=== PATIENT | male | born 1950 | race Caucasian/White ===

== ENCOUNTER 2019-12-29 03:20 | Inpatient (IN) ==
[2019-12-29] MEDS ORDERED: 0.2 MICRON FILTER SET 1 EA IV ONE ×2 (03:36→03:46)
[2019-12-29] MEDS ORDERED: AMIODARONE HCL INJ 50 MG/ML 3 ML VIAL IV ONE (03:37)
[2019-12-29 03:45] LABS: Basophils # (auto) 0.02 K/uL (0-0.2); Basophils % (auto) 0.3 %; Eosinophils # (auto) 0.08 K/uL (0-0.5); Hemoglobin 14.8 g/dL (14.0-18.0); Immature Granulocytes # (auto) 0.04 K/uL (0.00-0.02); Immature Granulocytes % (auto) 0.5 %; Lymphocytes % (auto) 20.4 %; Mean Corpuscular Hemoglobin 31.3 pg (25-34); Mean Corpuscular Hgb Conc 32.9 g/dL (32-36); Mean Corpuscular Volume 95.1 fL (80-100); Mean Platelet Volume 12.1 fL (7.4-10.4); Monocytes % (auto) 12.8 %; Neutrophils # (auto) 5.09 K/uL (1.4-6.5); Platelet Count 200 K/uL (130-400); RDW Coefficient of Variation 13.5 % (11.5-14.5); RDW Standard Deviation 47.1 fL (36.4-46.3); Red Blood Count 4.73 M/uL (4.7-6.1); White Blood Count 7.83 K/uL (4.8-10.8)
[2019-12-29] MEDS ORDERED: SODIUM CHLORIDE 0.9% 1000ML 1,000 ML IV SCH (03:45)
[2019-12-29] MEDS ORDERED: AMIODARONE 450 MG in D5W 250ML IN *POLYOLEFIN BAG* 241 ML IV ONE (03:46)
[2019-12-29 03:51] LABS: iSTAT Creatinine 2.2 mg/dl (0.6-1.3); iSTAT Ionized Calcium 1.01 mmol/l (1.12-1.32); iSTAT Potassium 5.5 mmol/L (3.3-5.0)
[2019-12-29 04:19] LABS: Albumin Globulin Ratio 0.9 (0.9-2); Albumin Level 3.5 gm/dl (3.4-5.0); BUN Creatinine Ratio 13.1 (10-20); Bilirubin,Total 0.4 mg/dl (0.2-1); Calcium 8.2 mg/dl (8.5-10.1); Creatinine Clr Calc Pharmacy 48.1 ml/min; Est GFR (African American) 34.2; Est GFR (Non-African American) 29.5; Globulin 3.8 gm/dl (2.5-4.0); Thyroid Stimulating Hormone 0.821 uIu/ml (0.300-4.500); Total Protein 7.3 gm/dl (6.4-8.2); Troponin I 0.388 ng/ml (0-0.045)
[2019-12-29] MEDS: AMIODARONE / D5W 150 MG/100 ML BAG IV STA ×2 (04:23→06:59)
[2019-12-29 05:24] LABS: Partial Thromboplastin Ratio 1.1; Partial Thromboplastin Time 30.2 Seconds (21.0-31.0)
[2019-12-29 05:26] LABS: Estimated Average Glucose 120 mg/dl; Hemoglobin A1C 5.8 % (4.5-5.6)
--- NOTE | 2019-12-29 05:26 | Emergency Department Note ---
History of Present Illness General Chief complaint: Cardiac Assessment Time Seen by Provider: 12/29/19 03:30 Source: patient, EMS and RN notes reviewed Mode of arrival: EMS Limitations: no limitations History of Present Illness Provider complaint: Dizzy, diaphoretic, pain between the shoulder blades Onset (ago): day(s) 3 Maximum Pain Intensity: 0 This patient is a 69-year-old male who presents emergency department with complaints of dizziness and diaphoresis. He states he has been feeling "sick" intermittently over the last several days. Patient states he fell out of bed several days ago and since that time his left shoulder and upper back between the shoulder blades has been sore. He also noticed some right lower abdominal discomfort when palpating the abdomen. Patient states he has a history of irregular heart rhythms for which he sees Dr. Cantu. The patient is not able to give a much more detailed history but states he takes his amiodarone daily. Patient denies any recent fevers, chills, dyspnea. He denies any significant chest discomfort. Home Medications Home Medications Medication Instructions Recorded Confirmed Type amiodarone 200 mg PO DAILY 12/29/19 12/29/19 History aspirin 81 mg PO DAILY 12/29/19 12/29/19 History carvedilol 6.25 mg PO DAILY 12/29/19 12/29/19 History lisinopril 5 mg PO DAILY 12/29/19 12/29/19 History magnesium oxide 400 mg PO DAILY 12/29/19 12/29/19 History Allergies Allergy/AdvReac Type Severity Reaction Status Date / Time GENARO-YELLOW SODA Allergy Unknown . Uncoded 12/29/19 04:17 Past Med/Surg History Medical History (Updated 12/29/19 @ 05:36 by Sendy Mora MD) Diabetes Erectile dysfunction Obesity Ventricular arrhythmia Social History Feels Safe at Home: Yes Smoking Status: Never smoker Review of Systems See HPI for pertinent positives & negatives. and A total of 10 systems reviewed and were otherwise negative Physical Exam Vital Signs Vital Signs - 24 hr 12/29/19 03:55 12/29/19 04:50 12/29/19 05:40 Temperature 36.3 C L Temperature Source Oral Pulse Rate 59 L Pulse Rate [Right Finger] 55 L 60 Respiratory Rate 18 16 16 Respiratory Depth Normal Normal Normal Blood Pressure 108/70 Blood Pressure [Right Arm] 112/76 111/60 Blood Pressure Mean 82 Blood Pressure Mean [Right Arm] 88 77 Blood Pressure Position Lying Blood Pressure Position [Right Arm] Lying Lying Pulse Oximetry 98 96 98 Oxygen Delivery Method Room Air Room Air Room Air Sepsis Recent Fever Within 48 Hours No Sepsis New/Unexplained Change in Mental Status No Sepsis Action Taken by Nursing No Action Required 12/29/19 06:40 Temperature Temperature Source Pulse Rate Pulse Rate [Right Finger] 57 L Respiratory Rate 16 Respiratory Depth Normal Blood Pressure Blood Pressure [Right Arm] 132/82 Blood Pressure Mean Blood Pressure Mean [Right Arm] 98 Blood Pressure Position Blood Pressure Position [Right Arm] Lying Pulse Oximetry 96 Oxygen Delivery Method Room Air Sepsis Recent Fever Within 48 Hours Sepsis New/Unexplained Change in Mental Status Sepsis Action Taken by Nursing Vital signs reviewed. General: Morbidly obese, chronically ill-appearing 69-year-old male, in no significant distress. HEENT: No scleral icterus, PERRLA, neck supple. Atraumatic. Cardiovascular: Regular with occasional ectopy, periodic runs of tachycardia. Pulmonary: Clear to auscultation bilaterally, normal work of breathing. Abdomen: Soft, nontender, nondistended, positive bowel sounds. Musculoskeletal: Atraumatic, no peripheral edema. Nontender to palpation over the cervical, thoracic and lumbar spine. No step-off or deformity appreciated. Neurologic: Patient awake alert and oriented x 3 Skin: Warm, diaphoretic, no rash Course Administered Medications Amiodarone HCl 450 mg/ (Dextrose) 250 mls @ 33.333 mls/hr IV ONE ONE; Protocol Stop: 12/29/19 11:15 Last Titration: 12/29/19 05:13 Dose: 0 mg/min, 0 mls/hr Documented by: [id number] Cosigned by: [id number] Admin: 12/29/19 04:09 Dose: 1 mg/min, 33.3 mls/hr Documented by: [id number] Cosigned by: [id number] Discontinued Medications Acetaminophen (Tylenol) 650 mg PO NOW STA Stop: 12/29/19 05:56 Last Admin: 12/29/19 06:58 Dose: 650 mg Documented by: [id number] Amiodarone HCl (Cordarone) Confirm Administered Dose 150 mg IV .[facility] Stop: 12/29/19 03:38 Last Admin: 12/29/19 04:22 Dose: 150 mg Documented by: [id number] Cosigned by: [id number] Amiodarone HCl/Dextrose (Nexterone / D5w) 150 mg in 100 mls @ 600 mls/hr IV NOW STA Stop: 12/29/19 03:45 Last Admin: 12/29/19 06:59 Dose: Not Given Documented by: [id number] Sodium Chloride (Nss 1000ml) 1,000 mls @ 100 mls/hr IV .Q10H KHLOE Stop: 12/29/19 13:44 Last Admin: 12/29/19 04:09 Dose: 100 mls/hr Documented by: [id number] Critical Care Time Critical Care Time: Yes (32) I have personally spent greater than 32 minutes of critical care time in the direct management of this patient. This includes bedside care, interpretation of diagnostic studies, and testing, discussion with consultants, patient, and family members, and other required patient management activities. This 32 minutes is in excess of all separately billable procedures. Medical Decision Making Differential Diagnosis Differential diagnosis: Acute coronary syndrome, dysrhythmia, pulmonary embolus, aortic dissection, musculoskeletal pain, pneumonia, pleural effusion, pneumothorax, GERD, peptic ulcer disease Medical Records Attestation: I reviewed the patient's medical records. (Traci) Home Medications Current Medication List: was personally reviewed by me Laboratory Data Attestation: I reviewed the patient's lab results. Result diagrams: 12/29/19 03:30 12/29/19 04:48 Lab Results 12/29/19 12/29/19 12/29/19 Range/Units 03:30 03:30 03:39 WBC 7.83 (4.8-10.8) K/uL RBC 4.73 (4.7-6.1) M/uL Hgb 14.8 (14.0-18.0) g/dL POC Hgb 16.0 (14.0-18.0) g/dl Hct 45.0 (42-52) % POC Hct 47 (42-52) % MCV 95.1 (80-100) fL MCH 31.3 (25-34) pg MCHC 32.9 (32-36) g/dL RDW Std Deviation 47.1 H (36.4-46.3) fL RDW Coeff of Adriana 13.5 (11.5-14.5) % Plt Count 200 (130-400) K/uL MPV 12.1 H (7.4-10.4) fL Immature Gran % (Auto) 0.5 % Neut % (Auto) 65.0 % Lymph % (Auto) 20.4 % [place] % (Auto) 12.8 % Eos % (Auto) 1.0 % Baso % (Auto) 0.3 % Immature Gran # (Auto) 0.04 H (0.00-0.02) K/uL Neut # (Auto) 5.09 (1.4-6.5) K/uL Lymph # (Auto) 1.60 (1.2-3.4) K/uL [place] # (Auto) 1.00 H (0.11-0.59) K/uL Eos # (Auto) 0.08 (0-0.5) K/uL Baso # (Auto) 0.02 (0-0.2) K/uL APTT (21.0-31.0) Seconds PTT Ratio POC Sodium 136 (135-144) mmol/L Sodium 135 L (136-145) mmol/L POC Potassium 5.5 H (3.3-5.0) mmol/L Potassium (3.5-5.1) mmol/L POC Chloride 99 L (101-112) mmol/L Chloride 103 (98-107) mmol/L Carbon Dioxide 27 (21-32) mmol/L POC Total CO2 29 (24-31) mmol/L Anion Gap 5.0 (3-11) POC Anion Gap 14.0 L (16-25) mmol/L POC BUN 44 H (7-18) mg/dl BUN 29 H (7-18) mg/dl Creatinine 2.21 H (0.6-1.4) mg/dl POC Creatinine 2.2 H (0.6-1.3) mg/dl Est Cr Clr Drug Dosing 48.1 ml/min Est GFR ( Amer) 34.2 Est GFR (Non-Af Amer) 29.5 BUN/Creatinine Ratio 13.1 (10-20) Glucose 115 H (70-99) mg/dl POC Glucose (other) 112 H (70-99) mg/dl Estimat Average Glucose mg/dl Hemoglobin A1c (4.5-5.6) % Calcium 8.2 L (8.5-10.1) mg/dl POC Ioniz Calcium Sue 1.01 L (1.12-1.32) mmol/l Magnesium (1.8-2.4) mg/dl Total Bilirubin 0.4 (0.2-1) mg/dl AST (15-37) U/L ALT 21 (12-78) U/L Alkaline Phosphatase 72 (45-117) U/L Troponin I 0.388 H* (0-0.045) ng/ml Total Protein 7.3 (6.4-8.2) gm/dl Albumin 3.5 (3.4-5.0) gm/dl Globulin 3.8 (2.5-4.0) gm/dl Albumin/Globulin Ratio 0.9 (0.9-2) Lipase (73-393) U/L TSH 0.821 (0.300-4.500) uIu/ml 12/29/19 12/29/19 12/29/19 Range/Units 04:48 04:48 04:48 WBC (4.8-10.8) K/uL RBC (4.7-6.1) M/uL Hgb (14.0-18.0) g/dL POC Hgb (14.0-18.0) g/dl Hct (42-52) % POC Hct (42-52) % MCV (80-100) fL MCH (25-34) pg MCHC (32-36) g/dL RDW Std Deviation (36.4-46.3) fL RDW Coeff of Adriana (11.5-14.5) % Plt Count (130-400) K/uL MPV (7.4-10.4) fL Immature Gran % (Auto) % Neut % (Auto) % Lymph % (Auto) % [place] % (Auto) % Eos % (Auto) % Baso % (Auto) % Immature Gran # (Auto) (0.00-0.02) K/uL Neut # (Auto) (1.4-6.5) K/uL Lymph # (Auto) (1.2-3.4) K/uL [place] # (Auto) (0.11-0.59) K/uL Eos # (Auto) (0-0.5) K/uL Baso # (Auto) (0-0.2) K/uL APTT 30.2 (21.0-31.0) Seconds PTT Ratio 1.1 POC Sodium (135-144) mmol/L Sodium (136-145) mmol/L POC Potassium (3.3-5.0) mmol/L Potassium 4.3 (3.5-5.1) mmol/L POC Chloride (101-112) mmol/L Chloride (98-107) mmol/L Carbon Dioxide (21-32) mmol/L POC Total CO2 (24-31) mmol/L Anion Gap (3-11) POC Anion Gap (16-25) mmol/L POC BUN (7-18) mg/dl BUN (7-18) mg/dl Creatinine (0.6-1.4) mg/dl POC Creatinine (0.6-1.3) mg/dl Est Cr Clr Drug Dosing ml/min Est GFR ( Amer) Est GFR (Non-Af Amer) BUN/Creatinine Ratio (10-20) Glucose (70-99) mg/dl POC Glucose (other) (70-99) mg/dl Estimat Average Glucose 120 mg/dl Hemoglobin A1c 5.8 H (4.5-5.6) % Calcium (8.5-10.1) mg/dl POC Ioniz Calcium Sue (1.12-1.32) mmol/l Magnesium 2.1 (1.8-2.4) mg/dl Total Bilirubin (0.2-1) mg/dl AST 14 L (15-37) U/L ALT (12-78) U/L Alkaline Phosphatase (45-117) U/L Troponin I 0.905 H* (0-0.045) ng/ml Total Protein (6.4-8.2) gm/dl Albumin (3.4-5.0) gm/dl Globulin (2.5-4.0) gm/dl Albumin/Globulin Ratio (0.9-2) Lipase (73-393) U/L TSH 0.620 (0.300-4.500) uIu/ml 12/29/19 Range/Units 04:48 WBC (4.8-10.8) K/uL RBC (4.7-6.1) M/uL Hgb (14.0-18.0) g/dL POC Hgb (14.0-18.0) g/dl Hct (42-52) % POC Hct (42-52) % MCV (80-100) fL MCH (25-34) pg MCHC (32-36) g/dL RDW Std Deviation (36.4-46.3) fL RDW Coeff of Adriana (11.5-14.5) % Plt Count (130-400) K/uL MPV (7.4-10.4) fL Immature Gran % (Auto) % Neut % (Auto) % Lymph % (Auto) % [place] % (Auto) % Eos % (Auto) % Baso % (Auto) % Immature Gran # (Auto) (0.00-0.02) K/uL Neut # (Auto) (1.4-6.5) K/uL Lymph # (Auto) (1.2-3.4) K/uL [place] # (Auto) (0.11-0.59) K/uL Eos # (Auto) (0-0.5) K/uL Baso # (Auto) (0-0.2) K/uL APTT (21.0-31.0) Seconds PTT Ratio POC Sodium (135-144) mmol/L Sodium (136-145) mmol/L POC Potassium (3.3-5.0) mmol/L Potassium (3.5-5.1) mmol/L POC Chloride (101-112) mmol/L Chloride (98-107) mmol/L Carbon Dioxide (21-32) mmol/L POC Total CO2 (24-31) mmol/L Anion Gap (3-11) POC Anion Gap (16-25) mmol/L POC BUN (7-18) mg/dl BUN (7-18) mg/dl Creatinine (0.6-1.4) mg/dl POC Creatinine (0.6-1.3) mg/dl Est Cr Clr Drug Dosing ml/min Est GFR ( Amer) Est GFR (Non-Af Amer) BUN/Creatinine Ratio (10-20) Glucose (70-99) mg/dl POC Glucose (other) (70-99) mg/dl Estimat Average Glucose mg/dl Hemoglobin A1c (4.5-5.6) % Calcium (8.5-10.1) mg/dl POC Ioniz Calcium Sue (1.12-1.32) mmol/l Magnesium (1.8-2.4) mg/dl Total Bilirubin (0.2-1) mg/dl AST (15-37) U/L ALT (12-78) U/L Alkaline Phosphatase (45-117) U/L Troponin I (0-0.045) ng/ml Total Protein (6.4-8.2) gm/dl Albumin (3.4-5.0) gm/dl Globulin (2.5-4.0) gm/dl Albumin/Globulin Ratio (0.9-2) Lipase 65 L (73-393) U/L TSH (0.300-4.500) uIu/ml Imaging Data Attestation: I personally reviewed and interpreted this imaging study as follows: Radiologist's Impression: Chest x-ray to my interpretation reveals evidence of cardiomegaly and mild vascular congestion, no evidence of pulmonary edema or focal infiltrate. ECG Data Attestation: I personally reviewed and interpreted this ECG as follows: Indication: + palpitations Rate (beats per minute): 127 Rhythm: + other (VT) ECG Intervals/blocks: + IVCD and + Prolonged QT ECG [place]: + Left axis deviation ECG ST segments: + Nonspecific ST abnormalities and + repolarization abnormalities ECG Findings: + Q waves (Anterior) Blood Pressure Blood Pressure Findings: Normal blood pressure Blood Pressure Disposition: did not require urgent referral MDM Narrative This patient was evaluated and appeared to be in no significant distress. Patient has noted to be morbidly obese and slightly diaphoretic. An order for cardiac monitoring was placed and the patient is found to be in a sinus rhythm with frequent sustained runs of ventricular tachycardia. Patient's blood pressure remained mildly hypotensive to normal. I suspect this correlates with the patient's upper back discomfort as opposed to his recent fall from bed. Patient was medicated with 150 mg of IV amiodarone and placed on an amiodarone drip. Laboratory work reveals a mildly elevated troponin at 0.388. Patient's c reatinine is noted to be 2.2 with a potassium of 5.5. IV hydration was initiated. Patient's V. tach did break. He remained in a sinus rhythm with occasional PVCs. Patient's case was discussed with [facility] who has agreed to evaluate the patient for admission and further management. Impression & Plan Ventricular tachycardia, sustained Discharge Plan Visit Data Chief Complaint: Cardiac Assessment ED Provider: Sendy Mora Discharge Problem: Ventricular tachycardia, sustained Forms Stand Alone Forms: [facility] Prescriptions Prescriptions: No Action carvedilol 6.25 mg Tablet 6.25 mg PO DAILY RF: 0 amiodarone 200 mg Tablet 200 mg PO DAILY RF: 0 aspirin 81 mg Tablet,Delayed Release (Dr/Ec) 81 mg PO DAILY RF: 0 lisinopril 5 mg Tablet 5 mg PO DAILY RF: 0 magnesium oxide 400 mg magnesium Tablet 400 mg PO DAILY RF: 0
[2019-12-29 05:37] LABS: Potassium 4.3 mmol/L (3.5-5.1)
[2019-12-29] MEDS ORDERED: ACETAMINOPHEN 325 MG TAB PO STA (05:55)
[2019-12-29 05:56] LABS: Magnesium 2.1 mg/dl (1.8-2.4); Thyroid Stimulating Hormone 0.62 uIu/ml (0.300-4.500); Troponin I 0.905 ng/ml (0-0.045)
--- NOTE | 2019-12-29 05:58 | History & Physical Report ---
Date of Service December 29, 2019 Assessment & Plan (1) Recurrent ventricular tachycardia: Patient currently bradycardic post IV amiodarone administration at the ER. ? Precipitated by ARF, posttraumatic left shoulder/back pain Troponin elevation secondary to above chronic systolic heart failure secondary to idiopathic cardiomyopathy (EF 35 to 40%, TTE 2019), euvolemic to dry MICHAEL not on CPAP, patient did not tolerate CPAP titration as per 2010 sleep study report. hypertension, stable Hyperglycemia secondary to prediabetes, hemoglobin A1c of 5.8 past tobacco abuse PCU Hold IV amiodarone given bradycardia Facilitate home beta-javi and amiodarone Rx Baseline UA, appropriate to hold home MÓNICA inhibitor until creatinine back to baseline monitor creatinine response to gentle IV hydration Cardiology consult RE recurrent VT Follow troponin TTE if with progression N.p.o. for now until patient seen by Cardiology. DVT prophylaxis. Heparin SQ Full code Text document was generated using [employer] voice recognition software. It may contain grammatical or spelling errors. Kindly contact undersigned for clarification of any documentation item in question. History of Present Illness Chief Complaint: dizziness, shoulder pain Primary Care Provider: Valentín Pompa MD History obtained from patient and records. Medical history significant for chronic systolic heart failure secondary to idiopathic cardiomyopathy (EF 35 to 40%, TTE 2019), history RVOT VT as per records, MICHAEL not on CPAP, hypertension, past tobacco abuse. Last confinement December 2012 for ventricular tachycardia status post cardioversion. Patient refused ICD recommendation as per outpatient records. Patient fell off his bed yesterday morning. No head trauma, LOC. Patient complaining of left shoulder, upper back pain throughout the day. No chest pain, no S OB. Early this morning patient was tinkering with some box when he experienced dizz iness described as lightheadedness, diaphoreses, worsening left shoulder discomfort. Achy headache symptoms. At the ER, patient had transient VT on the monitor/telemetry strips. IV amiodarone started at the ER. Cardiac rate currently in the 50s. 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 Uncoded 06/04/20 04:17 Home Medications Home Medications Medication Instructions Recorded Confirmed Type amiodarone 200 mg PO DAILY 12/29/19 12/29/19 History aspirin 81 mg PO DAILY 12/29/19 12/29/19 History carvedilol 6.25 mg PO DAILY 12/29/19 12/29/19 History lisinopril 5 mg PO DAILY 12/29/19 12/29/19 History magnesium oxide 400 mg PO DAILY 12/29/19 12/29/19 History Past Med/Surg History Medical History (Updated 12/29/19 @ 07:35 by Mustapha Iraheta MD) Diabetes Erectile dysfunction Obesity Ventricular arrhythmia Social History Feels Safe at Home: Yes Smoking Status: Never smoker Review of Systems Review of Systems: As per HPI, all 10 systems reviewed, all other ROS negative Physical Exam Physical Exam: GENERAL: Comfortable, morbidly obese, no respiratory distress SKIN: Normal color, warm HEENT: Alopecia, bespectacled, [place] palpebral conjunctivae, no ptosis, dry buccal mucosa NECK : Supple, short neck, no tenderness CHEST : Decreased breath sounds , no tenderness HEART : Bradycardic , no obvious murmurs ABDOMEN: Some distention, nontender EXTREMITIES : Minimal LE swelling, no LE tenderness, no other conspicuous deformities noted NEUROLOGIC : Coherent, no facial asymmetry, mild hearing impairment, no other gross focality Results & Data Results & Data ([facility]) Vital Signs (Past 12 Hours) Vital Signs Temp Pulse Pulse Resp BP BP Pulse Ox 12/29/19 05:40 60 16 111/60 98 12/29/19 04:50 55 L 16 112/76 96 12/29/19 03:55 36.3 C L 59 L 18 108/70 98 Laboratory Results Laboratory Results WBC 7.83 K/uL (4.8-10.8) 12/29/19 03:30 RBC 4.73 M/uL (4.7-6.1) 12/29/19 03:30 Hgb 14.8 g/dL (14.0-18.0) 12/29/19 03:30 POC Hgb 16.0 g/dl (14.0-18.0) 12/29/19 03:39 Hct 45.0 % (42-52) 12/29/19 03:30 POC Hct 47 % (42-52) 12/29/19 03:39 MCV 95.1 fL (80-100) 12/29/19 03:30 MCH 31.3 pg (25-34) 12/29/19 03:30 MCHC 32.9 g/dL (32-36) 12/29/19 03:30 RDW Std Deviation 47.1 fL (36.4-46.3) H 12/29/19 03:30 RDW Coeff of Adriana 13.5 % (11.5-14.5) 12/29/19 03:30 Plt Count 200 K/uL (130-400) 12/29/19 03:30 MPV 12.1 fL (7.4-10.4) H 12/29/19 03:30 Immature Gran % (Auto) 0.5 % 12/29/19 03:30 Neut % (Auto) 65.0 % 12/29/19 03:30 Lymph % (Auto) 20.4 % 12/29/19 03:30 [place] % (Auto) 12.8 % 12/29/19 03:30 Eos % (Auto) 1.0 % 12/29/19 03:30 Baso % (Auto) 0.3 % 12/29/19 03:30 Immature Gran # (Auto) 0.04 K/uL (0.00-0.02) H 12/29/19 03:30 Neut # (Auto) 5.09 K/uL (1.4-6.5) 12/29/19 03:30 Lymph # (Auto) 1.60 K/uL (1.2-3.4) 12/29/19 03:30 [place] # (Auto) 1.00 K/uL (0.11-0.59) H 12/29/19 03:30 Eos # (Auto) 0.08 K/uL (0-0.5) 12/29/19 03:30 Baso # (Auto) 0.02 K/uL (0-0.2) 12/29/19 03:30 APTT 30.2 Seconds (21.0-31.0) 12/29/19 04:48 PTT Ratio 1.1 12/29/19 04:48 POC Sodium 136 mmol/L (135-144) 12/29/19 03:39 Sodium 135 mmol/L (136-145) L 12/29/19 03:30 POC Potassium 5.5 mmol/L (3.3-5.0) H 12/29/19 03:39 Potassium 4.3 mmol/L (3.5-5.1) 12/29/19 04:48 POC Chloride 99 mmol/L (101-112) L 12/29/19 03:39 Chloride 103 mmol/L (98-107) 12/29/19 03:30 Carbon Dioxide 27 mmol/L (21-32) 12/29/19 03:30 POC Total CO2 29 mmol/L (24-31) 12/29/19 03:39 Anion Gap 5.0 (3-11) 12/29/19 03:30 POC Anion Gap 14.0 mmol/L (16-25) L 12/29/19 03:39 POC BUN 44 mg/dl (7-18) H 12/29/19 03:39 BUN 29 mg/dl (7-18) H 12/29/19 03:30 Creatinine 2.21 mg/dl (0.6-1.4) H 12/29/19 03:30 POC Creatinine 2.2 mg/dl (0.6-1.3) H 12/29/19 03:39 Est Cr Clr Drug Dosing 48.1 ml/min 12/29/19 03:30 Est GFR ( Amer) 34.2 12/29/19 03:30 Est GFR (Non-Af Amer) 29.5 12/29/19 03:30 BUN/Creatinine Ratio 13.1 (10-20) 12/29/19 03:30 Glucose 115 mg/dl (70-99) H 12/29/19 03:30 POC Glucose (other) 112 mg/dl (70-99) H 12/29/19 03:39 Estimat Average Glucose 120 mg/dl 12/29/19 04:48 Hemoglobin A1c 5.8 % (4.5-5.6) H 12/29/19 04:48 Calcium 8.2 mg/dl (8.5-10.1) L 12/29/19 03:30 POC Ioniz Calcium Sue 1.01 mmol/l (1.12-1.32) L 12/29/19 03:39 Magnesium 2.1 mg/dl (1.8-2.4) 12/29/19 04:48 Total Bilirubin 0.4 mg/dl (0.2-1) 12/29/19 03:30 AST 14 U/L (15-37) L 12/29/19 04:48 ALT 21 U/L (12-78) 12/29/19 03:30 Alkaline Phosphatase 72 U/L (45-117) 12/29/19 03:30 Troponin I 0.905 ng/ml (0-0.045) H* 12/29/19 04:48 Total Protein 7.3 gm/dl (6.4-8.2) 12/29/19 03:30 Albumin 3.5 gm/dl (3.4-5.0) 12/29/19 03:30 Globulin 3.8 gm/dl (2.5-4.0) 12/29/19 03:30 Albumin/Globulin Ratio 0.9 (0.9-2) 12/29/19 03:30 TSH 0.620 uIu/ml (0.300-4.500) 12/29/19 04:48 Diagnostic Findings Chest x-ray as per my interpretation cardiomegaly EKG as per my interpretation : Rate 70, NSR, LAD, LAFB, RBBB, 1 AVB, septal infarct, inferior infarct, T wave abnormalities lateral leads, PVCs CT head: No acute intracranial abnormality. Left shoulder x-ray: 1. No fracture or dislocation within the left shoulder. 2. Chronic rotator cuff tear. CT thoracic spine read pending
--- NOTE | 2019-12-29 07:10 | CT Scan Report ---
HEAD CT NONCONTRAST CT DOSE: 859.97 mGy.cm HISTORY: Headache. Dizziness. TECHNIQUE: Multiaxial CT images of the head were performed without the use of intravenous contrast. A utomated exposure control was utilized for this study. A dose lowering technique was utilized adheri ng to the principles of ALARA. Comparison: None. Findings: Small retention cysts within the right maxillary sinus. The mastoid air cells are clear. Th e calvarium and skull base are intact. The ventricles are normal in size. Mild atrophic changes seen within the brain. There is no mass, hematoma, midline shift, or acute infarct. Impression: No acute intracranial abnormality. ACT 112: Negative or not required by law. Electronically signed by: Jonah Jenkins M.D. 12/29/2019 7:08 AM
--- NOTE | 2019-12-29 07:11 | XRay Report ---
LEFT SHOULDER 3 VIEWS HISTORY: L shoulder pain COMPARISON: None. FINDINGS: There is no fracture or dislocation. Soft tissues are unremarkable. The left clavicle is in tact. Narrowing of the subacromial space with [id number] articulation consistent with chronic rotat or cuff tear. IMPRESSION: 1. No fracture or dislocation within the left shoulder. 2. Chronic rotator cuff tear. ACT 112: Negative or not required by law. Electronically signed by: Jonah Jenkins M.D. 12/29/2019 7:09 AM
--- NOTE | 2019-12-29 07:11 | XRay Report ---
XR chest 1V portable HISTORY: palpitations COMPARISON: Chest 01/16/2013. FINDINGS: The lungs are clear. The heart remains mildly enlarged. No pleural effusions. No pneumothor ax. No evidence for pulmonary edema. No new focal lung consolidations to suggest pneumonia. Stable ri ght hilar prominence. IMPRESSION: No significant change compared to the prior study. No acute process. Stable mild cardiomegaly. ACT 112: Negative or not required by law. Electronically signed by: Jonah Jenkins M.D. 12/29/2019 7:10 AM
--- NOTE | 2019-12-29 07:57 | CT Scan Report ---
CT thoracic spine wo con CT DOSE: 1516.62 mGy.cm CLINICAL HISTORY: upper back pain, hx trauma TECHNIQUE: Helical images were acquired in the transverse plane. Sagittal and coronal reformatted monalisa ges were reviewed. A dose lowering technique was utilized adhering to the principles of ALARA. COMPARISON STUDY: None. FINDINGS: No acute fractures or traumatic subluxations are visualized. There is no evidence for a par aspinal hematoma. There are multilevel degenerative changes. There is a mild spinal curvature. IMPRESSION: No acute fractures or traumatic subluxations identified. ACT 112: Negative or not required by law. Electronically signed by: Daniel Langley M.D. 12/29/2019 7:55 AM
[2019-12-29] MEDS ORDERED: NITROGLYCERIN SL 0.4 MG/TAB TAB SL PRN (09:18)
[2019-12-29] MEDS ORDERED: TRAMADOL HCL 50 MG TABLET PO PRN (09:18)
[2019-12-29] MEDS ORDERED: HYDROmorphone INJ 0.5 MG/0.5 ML SYR IV PRN (09:18)
[2019-12-29] MEDS ORDERED: PROMETHAZINE HCL 12.5 MG in SODIUM CHLORIDE 0.9% 50 ML IV PRN (09:18)
[2019-12-29] MEDS ORDERED: AMIODARONE RATE CHANGE ONE (09:47)
[2019-12-29] MEDS: SODIUM CHLORIDE 0.9% 1000ML 1,000 ML IV SCH (10:01)
--- NOTE | 2019-12-29 11:14 | Cardiology Consultation ---
Date of Consultation December 29, 2019 Assessment & Plan (1) Recurrent ventricular tachycardia: Patient had appt with EP in 2012 to discuss treatment of right ventricular VT. He declined attempted ablation at that time. He also declined ICD implant at that time. He never had f/u with EP since 2012. He has been maintained on low dose amiodarone and low dose carvedilol. Doses of medicaitons have been limited by bradycardia in the past. On admisisn he was started on IV amiodarone with improvement in arrhythmias (2) Bradycardia: History of bradycardia, HR's ranging in the 50s while on amiodarone and low dose beta javi HR's trending down after recieving IV amiodarone, currently in the 40's on telemetry. No symptoms. Holding beta javi due to low HR this morning. (3) Non-ischemic cardiomyopathy: Patient has a history of non ischemic cardiomyopathy with LVEF around 30- 35% dating back to 2009. he underwent cath at that time, demonstrating normal coronary arteries. He has no chest pain (4) Elevated troponin: No chest pain on admission Likely due to ventricular arrhythmias Need to consider undelrying CAD/ischemia. His cath was in 2009 and does not appear that he has an ischemic work up since that time. Given his THANH with creatinine 2.2, not ideal cath candiate at this time, and given his lack of symptoms, will manage medically for now. Once creatinine improves, consider repeat evaluation. (5) THANH (acute kidney injury): Baseline creatinine around 1.3 in September 2019. Now 2.2 on admission. Hold lisinopril. Gentle fluids Case discussed with Dr. Henry. EP consult appreciated for further recommendations on ablation vs device vs medication management for recurrent symptomatic VT. Continue amiodarone for now. Consider future ischemic work up given elevated troponin. Will monitor. Supervising Physician Co-Signing Physician Notes Patient seen and examined at the bedside. Currently feeling well from a cardiovascular perspective. No recurrent ventricular tachycardia since last evening. Patient treated with beta-javi and IV amiodarone on admission, however, heart rate trended down into the 40s. Electrophysiology has evaluated the patient. Input appreciated. PE: VSS. Gen: NAD, AAOx3. Heart: Regular, normal S1S2. No murmur. Lungs: Clear B/L, No R/R/W. Ext: 1+ b/l pretibial edema. A/P: Agree with above PA-C history, physical exam, assessment and plan. Electrophysiology input appreciated. With low ejection fraction and evidence of ventricular tachycardia, ICD is indicated. Per discussion with electrophysiology, high-dose beta-blockers preferred treatment at this time, however, with evidence of tachy-maritza syndrome, backup pacing is necessary prior to titration of AV bruno blocking agents. Electrophysiology will discuss implantation of dual-chamber ICD during this hospitalization. In regard to patient's elevated troponin. I suspect demand ischemia in the setting of ventricular arrhythmias. Patient is without anginal symptoms. Repeat echocardiogram demonstrates global hypokinesis without discrete wall motion abnormality. Further ischemic evaluation is warranted, however, with elevated creatinine of 2.2, patient does not a cardiac catheterization candidate currently. Currently, will address ventricular tachycardia (which does not appear to be ischemic in origin) with ICD and beta-javi therapy. Further ischemic evaluation with stress testing versus coronary angiography as clinical course unfolds. History of Present Illness Reason for Consultation: VT Requesting Physician: Dr. James Attending Physician: Dr. Coy Henry History of Present Illness Patient is a 69 year old male who has a history of nonischemic cardiomyopathy, chronic systolic heart failure, LVEF 35-40% per last echo in 04/2019, and a history of right ventricular outflow track arrhythmias complicated by bradycardia, limiting medications in the past. In 2012, he was admitted for sustained ventricular tachycardia. Evaluated by EP at that time, Dr. Woodard, and discussed medications vs attempted RV ablation. He had f/u with Dr. Becerra as an outpatient and again options discussed regarding ablation or possible device implantation. He declined further work up or evaluation and preferred medical management. He has been on Amiodarone 200 mg and Coreg since that time. Primary psychotherapist counselor is Dr. Cantu. Last night, patient reports feeling significantly lightheaded and near syncopal. [place] his heart was racing and symptoms did not resolve quickly, as in past events. He called EMS and was brought to ER for evaluation. Upon arrival, patient found to have recurrent VT. He was started on IV amiodarone and his arrhythmias improved. He reports compliance with home medications. IV amiodarone was subsequently discontinued this morning due to bradycardia with HR's in the 40's. He received his Oral amiodarone this morning. He denies chest pain or recent chest pain. No SOB. He notes occasional palpitations. no true syncope. Chronic edema, unchanged. No fever, cough, chills. His last VT episode occurred around 3:45 AM. No recurrent arrhythmias since that time. At time of consult, patient reports feeling "back to normal". He denies recurrent dizziness or lightheadedness. No palpitations. No tachypalpitations. No chest pain or SOB. Allergies Allergy/AdvReac Type Severity Reaction Status Date / Time GENARO-YELLOW SODA Allergy Unknown . Uncoded 12/29/19 04:17 Home Medications Home Medications Medication Instructions Recorded Confirmed Type amiodarone 200 mg PO DAILY 12/29/19 12/29/19 History aspirin 81 mg PO DAILY 12/29/19 12/29/19 History carvedilol 6.25 mg PO DAILY 12/29/19 12/29/19 History lisinopril 5 mg PO DAILY 12/29/19 12/29/19 History magnesium oxide 400 mg PO DAILY 12/29/19 12/29/19 History Patient History Medical History (Updated 12/29/19 @ 16:33 by Maximo Woodard MD) Diabetes Erectile dysfunction Obesity Ventricular arrhythmia Social History Preferred Language: Indonesian Communication Ability: Effective Manufacturing Associate Required: No Beliefs That Will Affect Care: None Current Living Situation: Alone Other Information That Helps Us Care for You: No Feels Safe at Home: Yes Safety Concerns: Feels Safe At This Time Smoking Status: Former smoker Tobacco Type: smokeless tobacco ; Do You Dip or Chew Tobacco: Yes ; Second Hand Exposure: No ; Tobacco Cessation Education Requested by Patient: Yes Hx Alcohol Use: No Hx Substance Use: No Review of Systems Review of Systems: All systems reviewed & are unremarkable except as noted in HPI & below Physical Exam Constitutional: WD/WN, vitals as above + obese Respiratory: normal respiratory effort, lungs clear to auscultation Cardiovascular: Rate/Rhythm: regular rate and regular rhythm Heart Sounds: no murmur Vessels: no JVD Extremities: + edema (1+ edema b/l) Gastrointestinal (Abdomen): normal bowel sounds, soft, nontender, no hepatosplenomegaly Musculoskeletal: no cyanosis or clubbing, extremities motor strength 5/5 Neurologic: PERRL, EOMI, accommodation nl, no face palsy, no dysarthria Results & Data ([facility]) Vital Signs (Past 12 Hours) Vital Signs Temp Pulse Pulse Resp BP BP BP 12/29/19 09:25 61 12/29/19 08:25 36.4 C L 60 16 158/97 H 12/29/19 06:40 57 L 16 132/82 12/29/19 05:40 60 16 111/60 12/29/19 04:50 55 L 16 112/76 12/29/19 03:55 36.3 C L 59 L 18 108/70 Pulse Ox 12/29/19 09:25 12/29/19 08:25 96 12/29/19 06:40 96 12/29/19 05:40 98 12/29/19 04:50 96 12/29/19 03:55 98 Laboratory Results 12/29/19 12/29/19 12/29/19 Range/Units 11:03 04:48 04:48 WBC (4.8-10.8) K/uL RBC (4.7-6.1) M/uL Hgb (14.0-18.0) g/dL POC Hgb (14.0-18.0) g/dl Hct (42-52) % POC Hct (42-52) % MCV (80-100) fL MCH (25-34) pg MCHC (32-36) g/dL RDW Std Deviation (36.4-46.3) fL RDW Coeff of Adriana (11.5-14.5) % Plt Count (130-400) K/uL MPV (7.4-10.4) fL Immature Gran % (Auto) % Neut % (Auto) % Lymph % (Auto) % [place] % (Auto) % Eos % (Auto) % Baso % (Auto) % Immature Gran # (Auto) (0.00-0.02) K/uL Neut # (Auto) (1.4-6.5) K/uL Lymph # (Auto) (1.2-3.4) K/uL [place] # (Auto) (0.11-0.59) K/uL Eos # (Auto) (0-0.5) K/uL Baso # (Auto) (0-0.2) K/uL APTT (21.0-31.0) Seconds PTT Ratio POC Sodium (135-144) mmol/L Sodium (136-145) mmol/L POC Potassium (3.3-5.0) mmol/L Potassium (3.5-5.1) mmol/L POC Chloride (101-112) mmol/L Chloride (98-107) mmol/L Carbon Dioxide (21-32) mmol/L POC Total CO2 (24-31) mmol/L Anion Gap (3-11) POC Anion Gap (16-25) mmol/L POC BUN (7-18) mg/dl BUN (7-18) mg/dl Creatinine (0.6-1.4) mg/dl POC Creatinine (0.6-1.3) mg/dl Est Cr Clr Drug Dosing ml/min Est GFR ( Amer) Est GFR (Non-Af Amer) BUN/Creatinine Ratio (10-20) Glucose (70-99) mg/dl POC Glucose (other) (70-99) mg/dl Estimat Average Glucose 120 mg/dl Hemoglobin A1c 5.8 H (4.5-5.6) % Calcium (8.5-10.1) mg/dl POC Ioniz Calcium Sue (1.12-1.32) mmol/l Magnesium (1.8-2.4) mg/dl Total Bilirubin (0.2-1) mg/dl AST (15-37) U/L ALT (12-78) U/L Alkaline Phosphatase (45-117) U/L Troponin I 2.870 H* (0-0.045) ng/ml Total Protein (6.4-8.2) gm/dl Albumin (3.4-5.0) gm/dl Globulin (2.5-4.0) gm/dl Albumin/Globulin Ratio (0.9-2) Lipase 65 L (73-393) U/L TSH (0.300-4.500) uIu/ml 12/29/19 12/29/19 12/29/19 Range/Units 04:48 04:48 03:39 WBC (4.8-10.8) K/uL RBC (4.7-6.1) M/uL Hgb (14.0-18.0) g/dL POC Hgb 16.0 (14.0-18.0) g/dl Hct (42-52) % POC Hct 47 (42-52) % MCV (80-100) fL MCH (25-34) pg MCHC (32-36) g/dL RDW Std Deviation (36.4-46.3) fL RDW Coeff of Adriana (11.5-14.5) % Plt Count (130-400) K/uL MPV (7.4-10.4) fL Immature Gran % (Auto) % Neut % (Auto) % Lymph % (Auto) % [place] % (Auto) % Eos % (Auto) % Baso % (Auto) % Immature Gran # (Auto) (0.00-0.02) K/uL Neut # (Auto) (1.4-6.5) K/uL Lymph # (Auto) (1.2-3.4) K/uL [place] # (Auto) (0.11-0.59) K/uL Eos # (Auto) (0-0.5) K/uL Baso # (Auto) (0-0.2) K/uL APTT 30.2 (21.0-31.0) Seconds PTT Ratio 1.1 POC Sodium 136 (135-144) mmol/L Sodium (136-145) mmol/L POC Potassium 5.5 H (3.3-5.0) mmol/L Potassium 4.3 (3.5-5.1) mmol/L POC Chloride 99 L (101-112) mmol/L Chloride (98-107) mmol/L Carbon Dioxide (21-32) mmol/L POC Total CO2 29 (24-31) mmol/L Anion Gap (3-11) POC Anion Gap 14.0 L (16-25) mmol/L POC BUN 44 H (7-18) mg/dl BUN (7-18) mg/dl Creatinine (0.6-1.4) mg/dl POC Creatinine 2.2 H (0.6-1.3) mg/dl Est Cr Clr Drug Dosing ml/min Est GFR ( Amer) Est GFR (Non-Af Amer) BUN/Creatinine Ratio (10-20) Glucose (70-99) mg/dl POC Glucose (other) 112 H (70-99) mg/dl Estimat Average Glucose mg/dl Hemoglobin A1c (4.5-5.6) % Calcium (8.5-10.1) mg/dl POC Ioniz Calcium Sue 1.01 L (1.12-1.32) mmol/l Magnesium 2.1 (1.8-2.4) mg/dl Total Bilirubin (0.2-1) mg/dl AST 14 L (15-37) U/L ALT (12-78) U/L Alkaline Phosphatase (45-117) U/L Troponin I 0.905 H* (0-0.045) ng/ml Total Protein (6.4-8.2) gm/dl Albumin (3.4-5.0) gm/dl Globulin (2.5-4.0) gm/dl Albumin/Globulin Ratio (0.9-2) Lipase (73-393) U/L TSH 0.620 (0.300-4.500) uIu/ml 12/29/19 12/29/19 Range/Units 03:30 03:30 WBC 7.83 (4.8-10.8) K/uL RBC 4.73 (4.7-6.1) M/uL Hgb 14.8 (14.0-18.0) g/dL POC Hgb (14.0-18.0) g/dl Hct 45.0 (42-52) % POC Hct (42-52) % MCV 95.1 (80-100) fL MCH 31.3 (25-34) pg MCHC 32.9 (32-36) g/dL RDW Std Deviation 47.1 H (36.4-46.3) fL RDW Coeff of Adriana 13.5 (11.5-14.5) % Plt Count 200 (130-400) K/uL MPV 12.1 H (7.4-10.4) fL Immature Gran % (Auto) 0.5 % Neut % (Auto) 65.0 % Lymph % (Auto) 20.4 % [place] % (Auto) 12.8 % Eos % (Auto) 1.0 % Baso % (Auto) 0.3 % Immature Gran # (Auto) 0.04 H (0.00-0.02) K/uL Neut # (Auto) 5.09 (1.4-6.5) K/uL Lymph # (Auto) 1.60 (1.2-3.4) K/uL [place] # (Auto) 1.00 H (0.11-0.59) K/uL Eos # (Auto) 0.08 (0-0.5) K/uL Baso # (Auto) 0.02 (0-0.2) K/uL APTT (21.0-31.0) Seconds PTT Ratio POC Sodium (135-144) mmol/L Sodium 135 L (136-145) mmol/L POC Potassium (3.3-5.0) mmol/L Potassium (3.5-5.1) mmol/L POC Chloride (101-112) mmol/L Chloride 103 (98-107) mmol/L Carbon Dioxide 27 (21-32) mmol/L POC Total CO2 (24-31) mmol/L Anion Gap 5.0 (3-11) POC Anion Gap (16-25) mmol/L POC BUN (7-18) mg/dl BUN 29 H (7-18) mg/dl Creatinine 2.21 H (0.6-1.4) mg/dl POC Creatinine (0.6-1.3) mg/dl Est Cr Clr Drug Dosing 48.1 ml/min Est GFR ( Amer) 34.2 Est GFR (Non-Af Amer) 29.5 BUN/Creatinine Ratio 13.1 (10-20) Glucose 115 H (70-99) mg/dl POC Glucose (other) (70-99) mg/dl Estimat Average Glucose mg/dl Hemoglobin A1c (4.5-5.6) % Calcium 8.2 L (8.5-10.1) mg/dl POC Ioniz Calcium Sue (1.12-1.32) mmol/l Magnesium (1.8-2.4) mg/dl Total Bilirubin 0.4 (0.2-1) mg/dl AST (15-37) U/L ALT 21 (12-78) U/L Alkaline Phosphatase 72 (45-117) U/L Troponin I 0.388 H* (0-0.045) ng/ml Total Protein 7.3 (6.4-8.2) gm/dl Albumin 3.5 (3.4-5.0) gm/dl Globulin 3.8 (2.5-4.0) gm/dl Albumin/Globulin Ratio 0.9 (0.9-2) Lipase (73-393) U/L TSH 0.821 (0.300-4.500) uIu/ml Diagnostic Findings EKG and telemetry reviewed from admission: NSR with monomorphic VT last episode of non sustained VT around 3:45 AM Outpatient echo report reviewed, dated 04/2019: Interpretation Summary The examination is adequate to evaluate the referral indication. The left ventricular cavity size is mildly enlarged. The LV wall thickness is mildly increased (concentric). There is moderate diffuse left ventricular hypokinesis. The left ventricular systolic function is moderately reduced. Qualitative LV ejection Fraction = 35-40%. Mild aortic valve sclerosis is present. Aortic stenosis is absent.
[2019-12-29] MEDS: ASPIRIN 81 MG ECTAB PO SCH (11:26)
[2019-12-29] MEDS: carvediloL 6.25 MG TAB PO SCH (11:26)
[2019-12-29] MEDS: AMIODARONE 200 MG TAB PO SCH (11:26)
[2019-12-29 13:05] LABS: Appearance Urine Clear (Clear); Bilirubin Urine Negative (Negative); Blood Urine Negative (Negative); Color Urine Yellow; Glucose Urine UA Negative (Negative); Ketones Urine Negative (Negative); Leukocyte Esterase Urine Negative (Negative); Nitrite Urine Negative (Negative); Protein Urine Negative (Negative); Urobilinogen Urine Negative (Negative)
[2019-12-29] MEDS: HEPARIN SOD 5,000 UNIT/0.5 ML VIAL SQ SCH ×2 (13:48→22:52)
--- NOTE | 2019-12-29 16:11 | Cardiology Consultation ---
Date of Consultation December 29, 2019 Assessment & Plan (1) Recurrent ventricular tachycardia: He has a long history of recurrent ventricular tachycardia which appears to be a right ventricular outflow tract type of arrhythmia. Normally the treatment for this is beta-blockade which he does not tolerate due to bradycardia. He has been on amiodarone now for 7 years, he is having more difficulty with the ventricular arrhythmia on 200 mg daily of amiodarone although it did seem to suppress it intravenously in the emergency room. This may not be a good long-term treatment however. Consideration had been given to ablation but that was not done 7 years ago. I think the best option at this point would be to try high-dose beta-blockade however a pacemaker would be required to do that. (2) Non-ischemic cardiomyopathy: He has a nonischemic cardiomyopathy which has been present for over 10 years. The cause is not clear but most the reversible causes of cardiomyopathy would have progressed so I suspect it is not 1 of those, it may be related to his bifascicular block since he has a very wide QRS complex, it could be due to very frequent ventricular ectopy since his last Holter in 2011 demonstrated 28% premature ventricular beats. Both of these things can potentially be addressed. In addition he is not on appropriate heart failure medications, in part because he develops bradycardia on higher dose beta-blockade. This can also be addre ssed by a pacemaker/ICD. (3) Bifascicular bundle branch block: He has bifascicular block with a QRS duration of 150 to 160 ms on many of his electrocardiograms. This gives us the opportunity potentially of re- synchronizing his ventricular contraction which may help with his cardiomyopathy. He has never demonstrated higher grade AV block. (4) Bradycardia: He has sinus bradycardia when attempts are made to control his arrhythmia with beta-blockade. However he should be on beta-blockade with his cardiomyopathy. I would recommend pacing, preferably resynchronization, in order to try to correct his dyssynchrony as well as to allow appropriate treatment of his cardiomyopathy and his ventricular tachycardia with high-dose beta-blockade. I will tentatively plan Bi-V ICD implantation tomorrow. (5) THANH (acute kidney injury): His creatinine is slightly elevated, it is around 2 which is higher than it has been in the recent past. This is probably related to hypoperfusion, we will need to check it again and hopefully it will come down quickly. If it does not we may have to hold off on device placement since we will have to use IV contrast for that procedure. (6) Elevated troponin: He has an elevated troponin this admission. On presentation it was 0.388, an hour later was 0.905 and 7 hours later was 2.87. I suspect this was demand ischemia, although he may need an ischemic work-up. I doubt very much ischemia has anything to do with his ventricular arrhythmia. History of Present Illness Attending Physician: Wilman James MD History of Present Illness This is a 69 yo male with a history of non-ischemic cardiomyopathy identified in January of 2010 when he presented with palpitations and chest discomfort. He was life flighted from the emergency room here to [facility] where I understand catheterization demonstrated no obstructive disease. In 2009 it appears that he had symptoms suggestive of a tachycardia on presentation but only premature ventricular beats and nonsustained ventricular tachycardia was identified on monitoring. At that time he had an underlying bifascicular block pattern and his ventricular ectopy had an inferior axis left bundle branch block pattern. He was treated medically and had improvement in his left ventricular function and did not qualify for an ICD for primary prevention of sudden cardiac . He was lost to followup and he tells me he continued to take his medications, which were carvedilol and lisinopril but at low doses. Of note he did have a Holter monitor done in 2011, this showed 28% of his beats to be premature ventricular beats and he did have runs of nonsustained ventricular tachycardia although they were predominantly isolated. He then awoke in the morning of January 19, 2013 with palpitations and presented to the emergency room in a wide complex tachycardia. He was cardioverted electrically. He denies chest pain on this presentation although had some sort of discomfort in his chest and he was quite short of breath. The morphology of this tachycardia looked identical to the ectopy on his January 2010 presentation. He continued to have very frequent ectopy on telemetry monitoring and had a decrease in his left ventricular function with an ejection fraction in the 20s. His cardiac enzymes were very slightly elevated but consistent with demand ischemia not infarction. He was referred to [facility] for possible RVOT ablation, however he was started on amiodarone. He remained on low doses of heart failure medications. He is continued to have a low ejection fraction, he has not tolerated much in the way of heart failure medications at least in part due to bradycardia. He did have frequent palpitations in early September, at that time he did present to cardiology, laboratory studies were unremarkable and his therapy was continued. At that time an ICD was recommended and he refused. He presents now on amiodarone 200 mg daily, carvedilol 6.25 mg either once a day or twice a day, and lisinopril 5 mg daily. He had recurrence of his symptoms of palpitations and felt very poorly (he is a somewhat poor historian) and presented to the emergency room in ventricular tachycardia. The morphology of the tachycardia is similar to his prior presentations. He was treated with intravenous amiodarone and gradually his arrhythmia subsided, although perhaps not coincidentally it subsided with a decrease in his heart rate. At the time my evaluation he was feeling well, he denied symptoms of chest discomfort, does not have exertional symptoms to suggest angina and has not had much in the way of heart failure symptoms. Allergies Allergy/AdvReac Type Severity Reaction Status Date / Time GENARO-YELLOW SODA Allergy Unknown . Uncoded 12/29/19 04:17 Home Medications Home Medications Medication Instructions Recorded Confirmed Type amiodarone 200 mg PO DAILY 12/29/19 12/29/19 History aspirin 81 mg PO DAILY 12/29/19 12/29/19 History carvedilol 6.25 mg PO DAILY 12/29/19 12/29/19 History lisinopril 5 mg PO DAILY 12/29/19 12/29/19 History magnesium oxide 400 mg PO DAILY 12/29/19 12/29/19 History Patient History Medical History (Updated 12/29/19 @ 16:33 by Maximo Woodard MD) Diabetes Erectile dysfunction Obesity Ventricular arrhythmia Social History Preferred Language: Bulgarian Communication Ability: Effective Water Hauler Required: No Beliefs That Will Affect Care: None Current Living Situation: Alone Other Information That Helps Us Care for You: No Feels Safe at Home: Yes Safety Concerns: Feels Safe At This Time Smoking Status: Former smoker Tobacco Type: smokeless tobacco ; Do You Dip or Chew Tobacco: Yes ; Second Hand Exposure: No ; Tobacco Cessation Education Requested by Patient: Yes Hx Alcohol Use: No Hx Substance Use: No Review of Systems Review of Systems: All systems reviewed & are unremarkable except as noted in HPI & below Physical Exam Physical Exam: Constitutional: Alert, cooperative and in no distress. He is overweight. HEENT: Unremarkable Neck: No jugular venous distention, carotid pulses are normal and equal bilaterally without bruits. Pulmonary: Clear to auscultation bilaterally. Cardiac: Regular rhythm with no murmur, gallop or rub. Abdomen: Soft, nontender with normal bowel sounds. Extremities: No edema. Distal pulses intact. Neurologic: No focal findings. Gait is steady. Skin: No rash, ecchymoses or petechiae. Results & Data ([facility]) Vital Signs (Past 12 Hours) Vital Signs Temp Pulse Pulse Resp BP BP Pulse Ox 12/29/19 15:21 36.3 C L 71 23 125/81 96 12/29/19 10:57 36.7 C 52 L 19 146/77 H 94 12/29/19 09:25 61 12/29/19 08:25 36.4 C L 60 16 158/97 H 96 12/29/19 06:40 57 L 16 132/82 96 12/29/19 05:40 60 16 111/60 98 12/29/19 04:50 55 L 16 112/76 96 Diagnostic Findings His initial electrocardiogram here on December 29, 2019 at 3:45 AM shows underlying sinus tachycardia with his bifascicular block pattern, as well as several runs of nonsustained ventricular tachycardia with an inferiorly directed and leftward directed axis. Telemetry monitoring showed frequent runs of ventricular tachycardia initially, followed by relative suppression of his ventricular arrhythmia fairly quickly in the emergency room (on IV amiodarone). He did have sinus bradycardia into the 40s as well. An echocardiogram done on December 29, 2019 shows his left ventricle to be mildly dilated with an ejection fraction of 30 to 35%. He did have mild mitral regurgitation but no significant valvular abnormality.. PG Care Time/CCT Total # of Minutes Spent Total Time Spent with Patient: Total time spent is greater than 50% in coordination of care (as documented) at patient's floor/unit and/or counseling patient: Coding Level of Care Code 88865 Initial Inpt Care Lvl 3 Diagnoses Recurrent ventricular tachycardia I47.2 Non-ischemic cardiomyopathy I42.8 Bifascicular bundle branch block I45.2 Bradycardia R00.1 THANH (acute kidney injury) N17.9 Elevated troponin R79.89
--- NOTE | 2019-12-29 16:48 | Hospitalist Progress Note ---
Date of Service December 29, 2019 Assessment & Plan (1) Recurrent ventricular tachycardia: Recurrent ventricular tachycardia Bradycardia Likely Tachybradycardia syndrome Patient declined ablation, ICD implant the past ECHO: EF:30-35%, moderate global hypokinesis of the left ventricle. Right arielle tricle is moderately dilated. Left ventricle is mildly dilated. Right ventricular systolic function is normal. Mild MR, mild TR Given low EF, ventricular tachycardia would benefit from ICD Placement Appreciate Cardiology/EP Input Continue amiodarone, carvedilol Monitor on telemetry Elevated Troponin R/O ACS Likely demand Ischemia due to VT/THANH ECHO showed no focal wall motion abnormality Check Lipid Panel Continue aspirin, Coreg May need further evaluation with stress test Acute Kidney Injury Baseline Cr 1.3 Cr:2.21 Hold Lisinopril Gentle IV fluids given low EF Monitor renal function Avoid nephrotoxic agents as able Posttraumatic left shoulder/Back pain CT Head:No acute intracranial abnormality. L Shoulder X ray:No fracture or dislocation within the left shoulder. Chronic rotator cuff tear. T-Spine CT:No acute fractures or traumatic subluxations identified. 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 DVT Px: Heparin SQ Code Status Full code Admission and Anticipated Discharge Date Admission Date: December 29, 2019 Subjective Patient seen and examined at bedside States having left shoulder and neck discomfort since the fall Denies any chest pain, shortness of breath, dizziness, nausea, abdominal pain Discussed with cardiology today Offers no other complaints Review of Systems Review of Systems: All systems reviewed & are unremarkable except as noted in HPI & below Physical Exam Physical Exam: Physical Exam: Vitals signs as noted above General Appearance:Morbidly Obese, no apparent distress Head: normocephalic, Atraumatic Eyes: normal inspection, EOMI Neck: supple, Trachea midline Respiratory/Chest: Normal breath sounds, CTA, No accessory muscle use Cardiovascular: S1, S2, No murmur Abdomen/GI:Soft, Non tender, Bowel sounds present Extremities/Musculoskelatal:normal inspection, 1+ pedal edema Neurologic/Psych:AAOX3, grossly no focal neurological deficits Skin: normal color, warm Results & Data Results & Data ([facility]) Vital Signs (Past 12 Hours) Vital Signs Temp Pulse Pulse Resp BP BP Pulse Ox 12/29/19 15:21 36.3 C L 71 23 125/81 96 12/29/19 10:57 36.7 C 52 L 19 146/77 H 94 12/29/19 09:25 61 12/29/19 08:25 36.4 C L 60 16 158/97 H 96 12/29/19 06:40 57 L 16 132/82 96 12/29/19 05:40 60 16 111/60 98 12/29/19 04:50 55 L 16 112/76 96 Laboratory Results Short CBC 12/29/19 Range/Units 03:30 WBC 7.83 (4.8-10.8) K/uL Hgb 14.8 (14.0-18.0) g/dL Hct 45.0 (42-52) % Plt Count 200 (130-400) K/uL BMP 12/29/19 12/29/19 03:30 04:48 Sodium 135 L Potassium 4.3 Chloride 103 Carbon Dioxide 27 BUN 29 H Creatinine 2.21 H Glucose 115 H Calcium 8.2 L Cardiac Enzymes 12/29/19 12/29/19 12/29/19 Range/Units 03:30 04:48 11:03 Troponin I 0.388 H* 0.905 H* 2.870 H* (0-0.045) ng/ml Liver Function 12/29/19 12/29/19 Range/Units 03:30 04:48 Total Bilirubin 0.4 (0.2-1) mg/dl AST 14 L (15-37) U/L ALT 21 (12-78) U/L Alkaline Phosphatase 72 (45-117) U/L Albumin 3.5 (3.4-5.0) gm/dl Urine 12/29/19 Range/Units 12:50 Urine Color Yellow Urine Appearance Clear (Clear) Urine pH 6.0 (4.5-7.5) Ur Specific Bruni 1.010 (1.000-1.030) Urine Protein Negative (Negative) Urine Glucose (UA) Negative (Negative)
[2019-12-29] MEDS: LACTATED RINGER'S 1,000 ML IV SCH (20:22)
[2019-12-29] MEDS: ACETAMINOPHEN 325 MG TAB PO PRN (20:52)
[2019-12-30 05:57] LABS: Basophils # (auto) 0.03 K/uL (0-0.2); Basophils % (auto) 0.6 %; Eosinophils # (auto) 0.18 K/uL (0-0.5); Eosinophils % (auto) 3.6 %; Hematocrit (blood only) 48.2 % (42-52); Hemoglobin 14.9 g/dL (14.0-18.0); Immature Granulocytes # (auto) 0.02 K/uL (0.00-0.02); Immature Granulocytes % (auto) 0.4 %; Lymphocytes % (auto) 29.9 %; Mean Corpuscular Hgb Conc 30.9 g/dL (32-36); Mean Corpuscular Volume 97.2 fL (80-100); Mean Platelet Volume 11.8 fL (7.4-10.4); Monocytes # (auto) 0.61 K/uL (0.11-0.59); Monocytes % (auto) 12.2 %; Neutrophils # (auto) 2.67 K/uL (1.4-6.5); Neutrophils % (auto) 53.3 %; Platelet Count 194 K/uL (130-400); RDW Coefficient of Variation 13.7 % (11.5-14.5); RDW Standard Deviation 48.9 fL (36.4-46.3); Red Blood Count 4.96 M/uL (4.7-6.1); White Blood Count 5.01 K/uL (4.8-10.8)
[2019-12-30] MEDS ORDERED: CEFAZOLIN 250 MG/ML 1 GM VIAL IV SCH (06:00)
[2019-12-30 06:39] LABS: BUN Creatinine Ratio 15.7 (10-20); Calcium 8.6 mg/dl (8.5-10.1); Est GFR (African American) 55.1; Est GFR (Non-African American) 47.5; Magnesium 2.1 mg/dl (1.8-2.4); Potassium 4.3 mmol/L (3.5-5.1)
[2019-12-30] MEDS: SODIUM CHLORIDE 0.9% 1000ML 1,000 ML IV SCH (08:19)
[2019-12-30] MEDS: ASPIRIN 81 MG ECTAB PO SCH (08:19)
[2019-12-30] MEDS: carvediloL 6.25 MG TAB PO SCH (08:19)
[2019-12-30] MEDS: AMIODARONE 200 MG TAB PO SCH (08:19)
--- NOTE | 2019-12-30 10:45 | Cardiology Progress Note ---
Date of Service December 30, 2019 Assessment & Plan (1) Recurrent ventricular tachycardia: He has a long history of recurrent ventricular tachycardia which appears to be a right ventricular outflow tract type of arrhythmia. Normally the treatment for this is beta-blockade which he does not tolerate due to bradycardia. He has been on amiodarone now for 7 years, he is having more difficulty with the ventricular arrhythmia on 200 mg daily of amiodarone although it did seem to suppress when additional amiodarone was given intravenously in the emergency room. This may not be a good long-term treatment however. Consideration had been given to ablation but that was not done 7 years ago. I think the best option at this point would be to try high-dose beta- blockade however a pacemaker is required to do that. (2) Non-ischemic cardiomyopathy: He has a nonischemic cardiomyopathy which has been present for over 10 years. The cause is not clear but most the reversible causes of cardiomyopathy would have progressed, however it may be related to his bifascicular block since he has a very wide QRS complex, it could be due to very frequent ventricular ectopy since his last Holter in 2011 demonstrated 28% premature ventricular beats. On telemetry he does not have that many now, but they are very frequent and we do not quantify them on telemetry. Both of these causes can potentially be addressed with biventricular pacing and beta-blockade. In addition he is not on appropriate heart failure medications, in part because he develops bradycardia on higher dose beta-blockade. This can also be addressed by a pacemaker/ICD. (3) Bifascicular bundle branch block: He has bifascicular block with a QRS duration of 150 to 160 ms. This gives us the opportunity potentially of re-synchronizing his ventricular contraction which may help with his cardiomyopathy. He has never demonstrated higher grade AV block. (4) Bradycardia: He has sinus bradycardia when attempts are made to control his arrhythmia with beta-blockade. However he should be on beta-blockade with his cardiomyopathy as well as his ventricular tachycardia. I would recommend pacing, preferably resynchronization, in order to try to correct his dyssynchrony as well as to allow appropriate treatment of his cardiomyopathy and his ventricular tachycardia with high-dose beta-blockade. I discussed the indications, procedure, risks and alternatives of biventricular ICD implantation with him and he understands and agrees to proceed. Consent obtained. I also discussed sedation with him and he agrees. Consent obtained. We will plan on the procedure today, probably around noon. (5) THANH (acute kidney injury): His creatinine is slightly elevated, it had gone up to about 2 on presentation, but today is back to 1.5 which is around his baseline. This is probably related to hypoperfusion, we will need to use x-ray dye for biventricular ICD implant but we do not use a lot generally and I suspect he does not have a high risk with his creatinine improving to nearly baseline now. (6) Elevated troponin: He had an elevated troponin this admission. On presentation it was 0.388, an hour later was 0.905 and 7 hours later was 2.87, followed by 2.90. I suspect this was demand ischemia, although he may need an ischemic work-up. I doubt very much ischemia has anything to do with his ventricular arrhythmia since that has been so longstanding. Admission and Anticipated Discharge Date Admission Date: December 29, 2019 Subjective Today he is feeling tired, he has no palpitations or other cardiovascular complaints. Physical Exam Physical Exam: Constitutional: Alert, cooperative and in no distress. He is overweight. HEENT: Unremarkable Neck: No jugular venous distention, carotid pulses are normal and equal bilaterally without bruits. Pulmonary: Clear to auscultation bilaterally. Cardiac: Regular rhythm with no murmur, gallop or rub. Abdomen: Soft, nontender with normal bowel sounds. Extremities: No edema. Distal pulses intact. Neurologic: No focal findings. Gait is steady. Skin: No rash, ecchymoses or petechiae. Results & Data ([facility]) Vital Signs (Past 12 Hours) Vital Signs Temp Pulse Pulse Resp BP BP Pulse Ox 12/30/19 08:02 36.7 C 67 18 134/84 91 12/30/19 08:00 58 L 12/30/19 05:35 36.4 C L 59 L 20 135/80 95 12/29/19 23:51 36.3 C L 64 18 117/78 94 Laboratory Results Cardiac Enzymes 12/29/19 12/29/19 Range/Units 11:03 17:57 Troponin I 2.870 H* 2.900 H* (0-0.045) ng/ml CBC 12/30/19 Range/Units 05:31 WBC 5.01 (4.8-10.8) K/uL RBC 4.96 (4.7-6.1) M/uL Hgb 14.9 (14.0-18.0) g/dL Hct 48.2 (42-52) % Plt Count 194 (130-400) K/uL Neut # (Auto) 2.67 (1.4-6.5) K/uL Lymph # (Auto) 1.50 (1.2-3.4) K/uL Lea # (Auto) 0.61 H (0.11-0.59) K/uL Eos # (Auto) 0.18 (0-0.5) K/uL Baso # (Auto) 0.03 (0-0.2) K/uL Comprehensive Metabolic Panel 12/30/19 Range/Units 05:31 Sodium 140 (136-145) mmol/L Potassium 4.3 (3.5-5.1) mmol/L Chloride 106 (98-107) mmol/L Carbon Dioxide 28 (21-32) mmol/L BUN 23 H (7-18) mg/dl Creatinine 1.49 H D (0.6-1.4) mg/dl Glucose 104 H (70-99) mg/dl Calcium 8.6 (8.5-10.1) mg/dl Intake and Output 12/29/19 12/30/19 12/30/19 22:59 06:59 14:59 Intake Total 300 / 880 0 / 880 892 / 892 Output Total 1350 / 2150 Balance -1050 / -1270 0 / -1270 892 / 892 Intake: IV 892 / 892 Nss 1000ML 1,000 ml @ 40 mls/hr 892 / 892 IV .Q24H KHLOE Rx#:[id number] Oral 300 / 300 0 / 300 Output: Urine 1350 / 2150 Other: Other Intake Source NPO # Unmeasured Voids 2 Weight 158 kg Diagnostic Findings Telemetry: Sinus rhythm with an IVCD, frequent premature ventricular beats, no significant ventricular tachycardia over the last 24 hours PG Care Time/CCT Total # of Minutes Spent Total Time Spent with Patient: Total time spent is greater than 50% in coordination of care (as documented) at patient's floor/unit and/or counseling patient: Coding Level of Care Code 26472 Subseq Hosp Care Lvl 3 Diagnoses Recurrent ventricular tachycardia I47.2 Non-ischemic cardiomyopathy I42.8 Bifascicular bundle branch block I45.2 Bradycardia R00.1 THANH (acute kidney injury) N17.9 Elevated troponin R79.89
[2019-12-30] MEDS ORDERED: LIDOCAINE HCL 1% 20 ML VIAL ONE (12:09)
[2019-12-30] MEDS ORDERED: BACITRACIN OINT 0.9 GM PKT ONE ×2 (12:09→14:22)
[2019-12-30] MEDS ORDERED: BACITRACIN INJ 50,000 UNIT VIAL ONE (12:10)
[2019-12-30] MEDS ORDERED: MIDAZOLAM HCL 5 MG/ML 1 ML VIAL ONE (12:11)
[2019-12-30] MEDS ORDERED: fentaNYL citrate 100 MCG/2 ML VIAL ONE ×2 (12:11→14:01)
[2019-12-30] MEDS ORDERED: CEFAZOLIN 250 MG/ML 1 GM VIAL ONE (12:11)
--- NOTE | 2019-12-30 12:29 | Pre Anesthesia Assessment ---
Date of Service December 30, 2019 Pre Sedation Assessment Vital Signs Temp Pulse Pulse Pulse Resp BP BP 12/30/19 12:00 59 L 16 153/99 H 12/30/19 11:10 37.1 C 52 L 18 127/79 12/30/19 08:02 36.7 C 67 18 134/84 12/30/19 08:00 58 L 12/30/19 05:35 36.4 C L 59 L 20 135/80 12/29/19 23:51 36.3 C L 64 18 117/78 12/29/19 19:04 37.1 C 54 L 20 137/85 12/29/19 16:00 52 L 12/29/19 15:21 36.3 C L 71 23 125/81 Pulse Ox 12/30/19 12:00 98 12/30/19 11:10 96 12/30/19 08:02 91 12/30/19 08:00 12/30/19 05:35 95 12/29/19 23:51 94 12/29/19 19:04 95 12/29/19 16:00 12/29/19 15:21 96 Cardiovascular RRR, no murmur, no edema Respiratory normal respiratory effort, lungs clear to auscultation Pre-Sedation Airway Assessment Smoking Status: Former smoker Hx Sleep Apnea: No Hx Difficult Intubation: No Short, Thick Neck: No Thyromental Distance: > or= 3.5 Finger Breadths Oral Cavity: + Dentures Mallampati Class: IV ASA: ASA3 NPO Status Date of Last Intake of Fluids: 12/29/19 Time of Last Intake of Fluids: 18:00 Date of Last Intake of Solid Food: 12/29/19 Time of Last Intake of Solid Foods: 18:00 Procedure Planning Contraindications for Sedation: none Current Medications Reviewed: Yes Notes The planned sedation has been discussed with the patient. Informed Consent was obtained. I have identified the patient, determined the appropriateness of sedation and have assessed the patient immediately prior to the procedure. All medicine(s) and interventions are by my order.
[2019-12-30] MEDS ORDERED: METOPROLOL TARTRATE 1 MG/ML VIAL IV ONE ×2 (13:10→14:01)
[2019-12-30] MEDS ORDERED: ACETAMINOPHEN W/CODEINE #3 1 TAB PO PRN (15:05)
[2019-12-30] MEDS ORDERED: ACETAMINOPHEN 325 MG TAB PO PRN (15:05)
--- NOTE | 2019-12-30 15:05 | Electrophysiology Report ---
Date of Service December 30, 2019 Electrophysiology Procedure Electrophysiology Procedure Report Preoperative diagnosis: Bifascicular bundle branch block, cardiomyopathy, ventricular tachycardia Postoperative diagnosis: Same Procedure: Left subclavian venogram Atrial pacing and ventricular defibrillator lead implantation Coronary sinus angiography Left ventricular lead implantation Biventricular ICD implantation Surgeon: Maximo Woodard MD Estimated blood loss: 50 cc Complications: None Disposition: Cardiology recovery Procedure details: After obtaining informed consent for the procedure, the patient was brought to the laboratory and prepped and draped in the standard sterile manner. Dye was injected the left arm IV site to opacify the left subclavian vein. The subclavian vein was identified and found to be free of obstruction. The left prepectoral region was anesthetized with 1% lidocaine local anesthetic and left axillary venipuncture was performed by percutaneous technique and a guidewire placed through the left subclavian vein into the superior vena cava. The area was further infiltrated with 1% lidocaine local anesthetic and a 5 cm incision was made parallel to the left clavicle and 2 cm below it and carried down to the anterior pectoralis fascia. An ICD pocket was formed by blunt dissection anterior to the pectoralis fascia and a bacitracin- soaked sponge (50,000 units in 50 cc normal saline solution) was placed in the pocket. A 10.5 Somali Medtronic lead introducer was placed over the guidewire into the left subclavian vein, the dilator and guidewire were removed and a bipolar active fixation steroid tipped ventricular ICD lead was advanced through the introducer into the superior vena cava. A guidewire was placed through the introducer and the introducer was stripped from the lead and guidewire. An 8 Somali Medtronic lead introducer was placed over the guidewire into the left subclavian vein, the dilator and guidewire were removed and a bipolar active fixation steroid tipped atrial lead was advanced through the introducer into the superior vena cava. A guidewire was placed back through the introducer and the introducer was stripped from the lead and guidewire. Using a curved stylette the ventricular lead was advanced through the right ventricular outflow tract into the pulmonary artery and then using a straight stylette was positioned in the right ventricular apex. The screw was extended fixing the lead in position. Pacing and sensing thresholds were evaluated in bipolar configuration and are recorded on the implant data sheet. Diaphragmatic pacing was evaluated at full bipolar output as indicated on the data sheet. Using a curved stylette the atrial lead was positioned in the region of the atrial appendage and the screw extended fixing the lead in position. Pacing and sensing thresholds were evaluated in bipolar configuration and are recorded on the implant data sheet. Diaphragmatic pacing was evaluated at full bipolar output as indicated on the data sheet. Once the leads were in position they were attached to the anterior pectoralis fascia using 1 suture of 2-0 silk around each lead collar. The short guidewire was exchanged for a long guidewire and a Vanita coronary sinus sheath was advanced to position in the right atrium. The curved obturator was placed through the sheath and using x-ray dye the os of the coronary sinus was identified. A guidewire was placed through the introducer into the coronary sinus and the Vanita sheath was advanced into the coronary sinus. A balloon occlusion catheter was advanced through this sheath into the coronary sinus, the balloon was inflated and dye was injected in various projections to obtain a coronary sinus angiogram. A good vessel was identified and a 0.014 inch guidewire was advanced into this vessel. A quadripolar coronary sinus catheter was advanced over the guidewire into good distal position. The left ventricular pacing threshold was evaluated in various configurations, as recorded on the implant data sheet. Diaphragmatic pacing was evaluated at full output, as indicated on the data sheet. Once this lead was in position the introducer system was removed from the lead and the lead was attached to the anterior pectoral fascia using 2 sutures of 2-0 silk around the lead collar. An additional suture of 2-0 silk was placed around each of the atrial and ventricular lead collars as well. The bacitracin-soaked sponge was removed from the pocket, hemostasis was obtained, the ICD was attached to the leads and placed in the pocket with the leads coiled beneath it. The incision was closed with a running double subcutaneous closure of 3-0 Vicryl absorbable suture, followed by running subcuticular skin closure of 4-0 Vicryl absorbable suture. Bacitracin ointment was placed on the incision and a pressure dressing applied. During the procedure he had episodes of sustained ventricular tachycardia at around 100 bpm. He initially responded to intravenous beta-blockade with termination of the arrhythmia, overdrive pacing was unsuccessful. He was hemodynamically stable during the arrhythmia. Toward the end of the procedure the arrhythmia was essentially incessant and additional beta-blockade was given, the heart rate was in the mid 90s at that point. He did go to the recovery room and this ventricular rhythm, which then spontaneously terminated. He was awake and unaware of the arrhythmia. [place] Electrophysiology codes Indication for Procedure (1) Non-ischemic cardiomyopathy: (2) Bifascicular bundle branch block: (3) Bradycardia: Pacing Procedure 1: Pacin BiV electrode w/Pacer / ICD implant, add on code ICD Procedure 1: ICD: 30205 Insert single or dual ICD system Miscellaneous Procedures Procedure 1: EP Miscellaneous: 54544 Contrast injection for venography Procedure 2: EP Miscellaneous: 79855-80 Vengraphy, extremity Procedure 3: EP Miscellaneous: 26952-15 Venography, CS supevsion/interp
--- NOTE | 2019-12-30 15:10 | Cardiology Progress Note ---
Date of Service December 30, 2019 Assessment & Plan (1) Recurrent ventricular tachycardia: (2) Bradycardia: (3) Non-ischemic cardiomyopathy: (4) Elevated troponin: (5) THANH (acute kidney injury): (6) Bifascicular bundle branch block: Lopressor 5 mg IV x1 now. Titrate carvedilol to 12.5 mg every 12 hours. Discontinue amiodarone. Titrate beta-javi to maximum dose as tolerated. May consider transition to beta selective beta-javi pending clinical response. Continue other cardiovascular medications previously ordered. Consideration for further ischemic evaluation as hospital course unfolds. Subjective Patient seen and examined post ICD implantation. Sustained ventricular tachycardia at a rate of 100 bpm recorded during pacemaker implantation. Elevated heart rates noted intermittently post pacemaker implant. Currently s eated upright eating his p.m. meal. Denies chest pain or palpitations. No lightheadedness or dizziness. Review of Systems Review of Systems: All systems reviewed & are unremarkable except as noted in HPI & below Physical Exam Constitutional: well developed and + obese; no acute distress Respiratory: no respiratory distress and no labored breathing Auscultation: no crackles, no rales, no rhonchi and no wheezes Cardiovascular: Rate/Rhythm: regular rate and regular rhythm Heart Sounds: normal S1 and normal S2; no murmur and no cardiac rub Vessels: no JVD and no carotid bruit Extremities: + edema (1+ bilateral pretibial edema) Gastrointestinal (Abdomen): Inspection/Auscultation: abdomen normal to inspection and normal bowel sounds; abdomen not distended Percussion/Palpation: abdomen nontender Skin: no rashes, warm and dry Neurologic: moves all extremities; no focal motor deficits Speech / Cognition: normal speech Motor/Sensory: no tremor Results & Data Vital Signs (Past 12 Hours) Vital Signs Temp Pulse Pulse Pulse Resp BP BP 12/30/19 14:50 80 18 148/100 H 12/30/19 12:00 59 L 16 153/99 H 12/30/19 11:10 37.1 C 52 L 18 127/79 12/30/19 08:02 36.7 C 67 18 134/84 12/30/19 08:00 58 L 12/30/19 05:35 36.4 C L 59 L 20 135/80 Pulse Ox 12/30/19 14:50 93 06/05/20 12:00 98 12/30/19 11:10 96 12/30/19 08:02 91 12/30/19 08:00 12/30/19 05:35 95
[2019-12-30] MEDS: LACTATED RINGER'S 1,000 ML IV SCH (15:42)
--- NOTE | 2019-12-30 16:39 | Post Anesthesia Assessment ---
Date of Service December 30, 2019 Post Sedation Assessment Vital Signs Temp Pulse Pulse Pulse Resp BP BP 12/30/19 15:35 98 H 122/87 12/30/19 15:20 36.4 C L 81 20 143/95 H 12/30/19 15:05 80 18 135/105 H 12/30/19 14:50 80 18 148/100 H 12/30/19 12:00 59 L 16 153/99 H 12/30/19 11:10 37.1 C 52 L 18 127/79 12/30/19 08:02 36.7 C 67 18 134/84 12/30/19 08:00 58 L 12/30/19 05:35 36.4 C L 59 L 20 135/80 12/29/19 23:51 36.3 C L 64 18 117/78 12/29/19 19:04 37.1 C 54 L 20 137/85 Pulse Ox 12/30/19 15:35 12/30/19 15:20 97 12/30/19 15:05 93 12/30/19 14:50 93 12/30/19 12:00 98 12/30/19 11:10 96 12/30/19 08:02 91 12/30/19 08:00 12/30/19 05:35 95 12/29/19 23:51 94 12/29/19 19:04 95 Recovery Score Activity: Moves 4 extremities Respiration: Deep Breath/Cough Circulation: +/-20% PreAnes Value Consciousness: Fully Awake Oxygen Saturation: > 92% On Room Air Post Anesthesia Score: 10 Discharge Sedation Level of Care: Fast Track Phase II Post Sedation Plan On clinical assessment, the patient appears to have tolerated the sedation without complications. Patient is recovering as anticipated. Patient will continue to be monitored by nursing and may be discharged when sedation discharge criteria are met per below protocol. Upon Completions of procedure up to 15 minutes continue every 5 minute vital signs and the P.A.R. score; then discharge to a Phase I or Fast Track to Phase II per the following guidelines: * Discharge Patient to appropriate Phase II area if PAR is 8 or greater or return to pre- procedure baseline. The post - procedure orders will be as directed. * If PAR score is less than 8 or not return to pre-procedure baseline then patient will follow Phase I monitoring till PAR is reached for Phase II. The Phase I may be done in procedure room or may call to secure a Phase I area. * If naloxone or flumazenil are used for reversal, hold in Phase I for continued monitoring from when last reversal dose was given for a minimum of 60 minutes or longer pending the nurse and/or physician discretion of patient condition before discharge to Phase II. Please call the Sedation Physician to re-evaluate and complete post-note for discharge to Phase II area. Do NOT discharge from procedure sedation or Phase 1 until post- sedation evaluation note is complete by procedure /sedation MD Sedation Discharge Instructions to be given to the patient at discharge to home.
[2019-12-30] MEDS ORDERED: METOPROLOL TARTRATE 1 MG/ML VIAL IV STA ×2 (16:50→21:47)
--- NOTE | 2019-12-30 18:11 | Hospitalist Progress Note ---
Date of Service December 30, 2019 Assessment & Plan (1) Recurrent ventricular tachycardia: Recurrent ventricular tachycardia Bradycardia Likely Tachybradycardia syndrome ECHO: EF:30-35%, moderate global hypokinesis of the left ventricle. Right ventricle is moderately dilated. Left ventricle is mildly dilated. Right ventricular systolic function is normal. Mild MR, mild TR S/P Biventricular ICD Placement Appreciate Cardiology/EP Input Amiodarone discontinued Titrate Carvedilol 12.5mg BID Titrate beta-javi as tolerated Consideration for further ischemic evaluation Elevated Troponin Likely Type 2 AK secondary to VT in setting of THANH ECHO showed no focal wall motion abnormality Check Lipid Panel Continue aspirin, Coreg May need further evaluation with stress test Acute Kidney Injury Baseline Cr 1.3 Cr:2.21>>1.49 Hold Lisinopril Gentle IV fluids given low EF Monitor renal function Avoid nephrotoxic agents as able Posttraumatic left shoulder/Back pain CT Head:No acute intracranial abnormality. L Shoulder X ray:No fracture or dislocation within the left shoulder. Chronic rotator cuff tear. T-Spine CT:No acute fractures or traumatic subluxations identified. 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 DVT Px: Heparin SQ Code Status Full code Admission and Anticipated Discharge Date Admission Date: December 29, 2019 Subjective Patient is seen and examined at bedside States having chronic back pain Plan for ICD placement today Denies any chest pain, shortness of breath, dizziness, nausea, abdominal pain Offers no other complaints Review of Systems Review of Systems: All systems reviewed & are unremarkable except as noted in HPI & below Physical Exam Physical Exam: Physical Exam: Vitals signs as noted above General Appearance:Morbidly Obese, no apparent distress Head: normocephalic, Atraumatic Eyes: normal inspection, EOMI Neck: supple, Trachea midline Respiratory/Chest: Normal breath sounds, CTA, No accessory muscle use Cardiovascular: S1, S2, No murmur Abdomen/GI:Soft, Non tender, Bowel sounds present Extremities/Musculoskelatal:normal inspection, 1+ pedal edema Neurologic/Psych:AAOX3, grossly no focal neurological deficits Skin: normal color, warm Results & Data Results & Data ([facility]) Vital Signs (Past 12 Hours) Vital Signs Temp Pulse Pulse Pulse Resp BP BP 12/30/19 17:05 101 H 112/75 12/30/19 17:00 101 H 112/75 12/30/19 15:50 95 H 108/67 12/30/19 15:35 98 H 122/87 12/30/19 15:20 36.4 C L 81 20 12/30/19 15:05 80 18 135/105 H 12/30/19 14:50 80 18 148/100 H 12/30/19 12:00 59 L 16 12/30/19 11:10 37.1 C 52 L 18 127/79 12/30/19 08:02 36.7 C 67 18 12/30/19 08:00 58 L BP Pulse Ox 12/30/19 17:05 12/30/19 17:00 12/30/19 15:50 93 12/30/19 15:35 12/30/19 15:20 143/95 H 97 12/30/19 15:05 93 12/30/19 14:50 93 12/30/19 12:00 153/99 H 98 12/30/19 11:10 96 12/30/19 08:02 134/84 91 12/30/19 08:00 Laboratory Results Short CBC 12/30/19 Range/Units 05:31 WBC 5.01 (4.8-10.8) K/uL Hgb 14.9 (14.0-18.0) g/dL Hct 48.2 (42-52) % Plt Count 194 (130-400) K/uL BMP 12/30/19 05:31 Sodium 140 Potassium 4.3 Chloride 106 Carbon Dioxide 28 BUN 23 H Creatinine 1.49 H D Glucose 104 H Calcium 8.6 Cardiac Enzymes 12/29/19 Range/Units 17:57 Troponin I 2.900 H* (0-0.045) ng/ml
[2019-12-30] MEDS ORDERED: carvediloL 12.5 MG TAB PO SCH (21:00)
[2019-12-31 06:13] LABS: Hematocrit (blood only) 44.1 % (42-52); Hemoglobin 14.3 g/dL (14.0-18.0); Mean Corpuscular Hemoglobin 31.2 pg (25-34); Mean Corpuscular Hgb Conc 32.4 g/dL (32-36); Mean Corpuscular Volume 96.1 fL (80-100); Platelet Count 173 K/uL (130-400); RDW Coefficient of Variation 13.6 % (11.5-14.5); RDW Standard Deviation 48.2 fL (36.4-46.3); Red Blood Count 4.59 M/uL (4.7-6.1); White Blood Count 5.38 K/uL (4.8-10.8)
--- NOTE | 2019-12-31 06:39 | Electrocardiogram Report ---
Test Reason : Blood Pressure : / mmHG Vent. Rate : 072 BPM Atrial Rate : 072 BPM P-R Int : 218 ms QRS Dur : 162 ms QT Int : 462 ms P-R-T Axes : 016 -58 085 degrees QTc Int : 505 ms Sinus rhythm with 1st degree A-V block with occasional Premature ventricular complexes Left axis deviation Right bundle branch block Septal infarct , age undetermined Abnormal ECG When compared with ECG of 22-JAN-2013 09:11, Premature ventricular complexes are now Present Confirmed by Maximo Woodard ([id number]) on 12/31/2019 6:39:00 AM Referred By: REFERRED SELF Confirmed By:Maximo Woodard
--- NOTE | 2019-12-31 06:40 | Electrocardiogram Report ---
Test Reason : Blood Pressure : / mmHG Vent. Rate : 074 BPM Atrial Rate : 071 BPM P-R Int : 204 ms QRS Dur : 152 ms QT Int : 468 ms P-R-T Axes : 075 -64 -04 degrees QTc Int : 519 ms Poor data quality, interpretation may be adversely affected Probably sinus rhythm with PACs and PVCs Right bundle branch block Left anterior fascicular block Bifascicular block Cannot rule out Septal infarct (cited on or before 29-DEC-2019) Abnormal ECG When compared with ECG of 29-DEC-2019 03:29, (unconfirmed) No significant change Confirmed by Maximo Woodard ([id number]) on 12/31/2019 6:39:52 AM Referred By: REFERRED SELF Confirmed By:Maximo Woodard
--- NOTE | 2019-12-31 06:41 | Electrocardiogram Report ---
Test Reason : Blood Pressure : / mmHG Vent. Rate : 099 BPM Atrial Rate : 069 BPM P-R Int : 208 ms QRS Dur : 160 ms QT Int : 456 ms P-R-T Axes : 054 -57 051 degrees QTc Int : 585 ms Sinus rhythm with ventricular tachycardia Left axis deviation Right bundle branch block Abnormal ECG When compared with ECG of 29-DEC-2019 03:39, (unconfirmed) VT is now present Confirmed by Maximo Woodard ([id number]) on 12/31/2019 6:41:09 AM Referred By: REFERRED SELF Confirmed By:Maximo Woodard
--- NOTE | 2019-12-31 06:41 | Electrocardiogram Report ---
Test Reason : Blood Pressure : / mmHG Vent. Rate : 127 BPM Atrial Rate : 073 BPM P-R Int : 000 ms QRS Dur : 176 ms QT Int : 442 ms P-R-T Axes : 000 -35 -78 degrees QTc Int : 642 ms SR with VT Left axis deviation Non-specific intra-ventricular conduction block Abnormal ECG When compared with ECG of 29-DEC-2019 03:44, (unconfirmed) No significant change Confirmed by Maximo Woodard ([id number]) on 12/31/2019 6:41:41 AM Referred By: REFERRED SELF Confirmed By:Maximo Woodard
[2019-12-31 06:45] LABS: BUN Creatinine Ratio 18.9 (10-20); Calcium 8.2 mg/dl (8.5-10.1); Creatinine Clr Calc Pharmacy 73.4 ml/min; Est GFR (African American) 58.4; Est GFR (Non-African American) 50.4; Potassium 4.6 mmol/L (3.5-5.1)
--- NOTE | 2019-12-31 07:00 | XRay Report ---
XR chest 2V PA/lateral CLINICAL HISTORY: EXACT TIME ORDERED Evaluate for pneumothorax and l COMPARISON STUDY: 12/29/2019 FINDINGS: Placement of a permanent bipolar cardiac pacemaker/defibrillator. Heart remains enlarged. L ungs are grossly clear. No evidence of pneumothorax. IMPRESSION: Pacemaker in good position. No evidence for pneumothorax. ACT 112: Negative or not required by law. The above report was generated using voice recognition software. It may contain grammatical, syntax or spelling errors. Electronically signed by: Deshaun Parsons M.D. 12/31/2019 6:58 AM
--- NOTE | 2019-12-31 07:07 | Electrocardiogram Report ---
Test Reason : Blood Pressure : / mmHG Vent. Rate : 080 BPM Atrial Rate : 080 BPM P-R Int : 124 ms QRS Dur : 160 ms QT Int : 478 ms P-R-T Axes : 018 270 089 degrees QTc Int : 551 ms AV dual-paced rhythm Abnormal ECG When compared with ECG of 29-DEC-2019 03:45, (unconfirmed) Electronic ventricular pacemaker has replaced Wide QRS tachycardia Vent. rate has decreased BY 47 BPM Confirmed by Maximo Woodard ([id number]) on 12/31/2019 7:07:24 AM Referred By: REFERRED SELF Confirmed By:Maximo Woodard
--- NOTE | 2019-12-31 07:57 | Cardiology Progress Note ---
Date of Service December 31, 2019 Assessment & Plan (1) Status post implantation of automatic cardioverter/defibrillator (AICD): He is doing well postop day #1. The ICD is functioning well, pacing measurements are excellent, the chest x-ray looks good and the site looks good. From the surgical standpoint he could go home, although his rhythm may preclude that. (2) Non-ischemic cardiomyopathy: He has a nonischemic cardiomyopathy which has been present for over 10 years. The cause is not clear but most the reversible causes of cardiomyopathy would have progressed, however it may be related to his bifascicular block since he has a very wide QRS complex, it could be due to very frequent ventricular ectopy since his last Holter in 2011 demonstrated 28% premature ventricular beats. On telemetry he does not have that many now, but they are very frequent and we do not quantify them on telemetry. Both of these causes can potentially be addressed with biventricular pacing and beta-blockade. In addition he is not on appropriate heart failure medications, in part because he develops bradycardia on higher dose beta-blockade. This can also be addressed by a pacemaker/ICD. His QRS complex looks improved with biventricular pacing today and the lead is in good anatomic position. I am hopeful this will help with his cardiomyopathy. (3) Bifascicular bundle branch block: He has underlying bifascicular block with a QRS duration of 150 to 160 ms. This gives us the opportunity potentially of re-synchronizing his ventricular contraction which may help with his cardiomyopathy. He has never demonstrated higher grade AV block. At current ICD settings he has adaptive AV pacing and his left ventricular pacing only most of the time which appears to be appropriate. On electrocardiography this morning in the setting his electrical complex is acceptable, although not ideal, consistent with underlying widespread conduction system disease. (4) Bradycardia: He has sinus bradycardia when attempts are made to control his arrhythmia with beta-blockade. However he should be on beta-blockade with his cardiomyopathy as well as his ventricular tachycardia. I had him set to pace at 80 overnight thinking we might suppress his ventricular arrhythmia, but it did not and perhaps it is counterproductive. I have therefore reprogrammed him to a rate responsive mode of 60 to 130 bpm. (5) Ventricular tachycardia, sustained: He continues to have a lot of ventricular tachycardia. He has 2 different morphologies and heart rates although both appear to be from the right ventricular outflow tract region. They have not responded very well to beta- blockade so far, but often it takes high doses to suppress these arrhythmias. I would recommend continue to titrate his beta-blockade, if this does not work I think ablation is a reasonable option and could probably be done here as it seems to be a right ventricular outflow tract location or could be done at [facility]. His ICD is not programmed to treat these ventricular tachycardias. It is programmed to treat more rapid tachycardia, however treating these outflow tract tachycardias with antitachycardia pacing or cardioversion tends to be counterproductive as they are often catecholamine dependent and with pacing and shocks catecholamine levels increase in the arrhythmia worsens. If it degenerates to a dangerous arrhythmia the device will treat it, otherwise we should rely on medications or ablation. Admission and Anticipated Discharge Date Admission Date: December 29, 2019 Subjective He is feeling well today. He had a little pulling on the bandage at his incision site but no discomfort at the incision, no awareness of his arrhythmia and no chest pain or shortness of breath. Physical Exam Physical Exam: The incision is clean and dry with no bleeding, there is no significant swelling, no erythema. Cardiac rhythm is regular with no rub. Lungs are clear Results & Data ([facility]) Vital Signs (Past 12 Hours) Vital Signs Temp Pulse Pulse Resp BP BP Pulse Ox 12/31/19 07:42 36.9 C 60 18 111/74 92 12/31/19 03:40 36.7 C 81 18 117/74 93 12/31/19 00:00 80 12/30/19 23:34 36.7 C 52 L 19 98/64 L 94 12/30/19 22:38 80 107/71 12/30/19 22:05 87 94/68 L Laboratory Results Lipids 12/31/19 Range/Units 05:32 Triglycerides 79 (0-150) mg/dl Cholesterol 136 (0-200) mg/dl HDL Cholesterol 38 mg/dl Cholesterol/HDL Ratio 4 CBC 12/31/19 Range/Units 05:32 WBC 5.38 (4.8-10.8) K/uL RBC 4.59 L (4.7-6.1) M/uL Hgb 14.3 (14.0-18.0) g/dL Hct 44.1 (42-52) % Plt Count 173 (130-400) K/uL Comprehensive Metabolic Panel 12/31/19 Range/Units 05:32 Sodium 137 (136-145) mmol/L Potassium 4.6 (3.5-5.1) mmol/L Chloride 104 (98-107) mmol/L Carbon Dioxide 28 (21-32) mmol/L BUN 27 H (7-18) mg/dl Creatinine 1.42 H (0.6-1.4) mg/dl Glucose 96 (70-99) mg/dl Calcium 8.2 L (8.5-10.1) mg/dl Intake and Output 12/30/19 12/31/19 12/31/19 22:59 06:59 14:59 Output Total 900 / 1150 250 / 1150 200 / 200 Balance -900 / -258 -250 / -258 -200 / -200 Output: Urine 900 / 1150 250 / 1150 200 / 200 Diagnostic Findings ECG: His immediate postoperative ECG is biventricular paced with 0 LV RV offset, that appears to be a little bit early in the LV lead based on QRS morphology. This morning I reprogrammed him for automatic VV timing which includes LV only pacing, which is his predominant pacing modality at the moment and I repeated the electrocardiogram which shows an improved complex which I believe is acceptable. Telemetry: AV pacing and ventricular tachycardia, very frequent ventricular tachycardia of 2 different morphologies. Chest x-ray: I have a very hard time viewing his chest x-ray, due to his body habitus, per radiology he does not have a pneumothorax and I cannot really see lead position very well but it appears to be adequate. Pacemaker evaluation: Excellent pacing and sensing characteristics in all leads. PG Care Time/CCT Total # of Minutes Spent Total Time Spent with Patient: Total time spent is greater than 50% in coordination of care (as documented) at patient's floor/unit and/or counseling patient: Coding Level of Care Code 52749 Post Operative Follow-Up Diagnoses Status post implantation of automatic cardioverter/defibrillator (AICD) Z95.810 Non-ischemic cardiomyopathy I42.8 Bifascicular bundle branch block I45.2 Bradycardia R00.1 Ventricular tachycardia, sustained I47.2 CPT Codes Implantable Defib Multi lead programming - [id number] ([id number])
[2019-12-31] MEDS: ASPIRIN 81 MG ECTAB PO SCH (08:42)
[2019-12-31] MEDS: AMIODARONE 200 MG TAB PO SCH (08:42)
[2019-12-31] MEDS ORDERED: carvediloL 25 MG TAB PO SCH (09:00)
[2019-12-31] MEDS: SODIUM CHLORIDE 0.9% 1000ML 1,000 ML IV SCH (09:16)
--- NOTE | 2019-12-31 10:05 | Cardiology Progress Note ---
Date of Service December 31, 2019 Assessment & Plan (1) Recurrent ventricular tachycardia: Patient had appt with EP in 2012 to discuss treatment of right ventricular VT. He declined attempted ablation at that time. He also declined ICD implant at that time. He never had f/u with EP since 2012. He has been maintained on low dose amiodarone and low dose carvedilol. Doses of medicaitons have been limited by bradycardia in the past. Now status post pacer defibrillator insertion. Continue to have ventricular tachycardia with ultimate goals control with high dose beta-blocke Currently on carvedilol low blood pressure limiting its usage. Plan: Discontinue carvedilol, amiodarone and switch to Toprol-XL beginning at 25 mg 3 times daily with plans for upward titration. Hopefully this will allow additional blood pressure to reinstitute MÓNICA inhibitor versus alternative afterload reduction Would maintain telemetry until arrhythmia better controlled Nocturnal oximetry ordered (2) Bradycardia: History of bradycardia, HR's ranging in the 50s while on amiodarone and low dose beta javi HR's trending down after recieving IV amiodarone, currently in the 40's on telemetry. No symptoms. Holding beta javi due to low HR this morning. (3) Non-ischemic cardiomyopathy: (4) Elevated troponin: No chest pain on admission Likely due to ventricular arrhythmias Need to consider undelrying CAD/ischemia. His cath was in 2009 and does not appear that he has an ischemic work up since that time. Given his THANH with creatinine 2.2, not ideal cath candiate at this time, and given his lack of symptoms, will manage medically for now. Once creatinine improves, consider repeat evaluation. Anticipate stress testing post discharge (5) THANH (acute kidney injury): Baseline creatinine around 1.3 in September 2019. Now 2.2 on admission. Improved during hospitalization. Will follow closely for consideration of reinstitution of MÓNICA inhibitor (6) Bifascicular bundle branch block: Subjective Patient seen and examined, chart, medications, telemetry reviewed. No acute complaints with ICD site tender without hematoma or drainage. Telemetry continues to demonstrate salvos of ventricular tachycardia nearly continuous when not paced Appreciate EP input Review of Systems Review of Systems: All systems reviewed & are unremarkable except as noted in HPI & below Physical Exam Constitutional: + obese Eyes: PERRL, conjunctivae normal, anicteric sclerae ENMT: external ear and nose normal, oropharynx normal Neck: + thick neck Respiratory: Auscultation: lungs clear to auscultation bilaterally Cardiovascular: Rate/Rhythm: regular rate and regular rhythm Heart Sounds: normal S1 and normal S2; no murmur Palpation: S3 nonpalpable Vessels: no JVD Extremities: + edema (1+ to knee) Chest (Breasts): Chest: + pacemaker Gastrointestinal (Abdomen): normal bowel sounds, soft, nontender, no hepatosplenomegaly Neurologic: PERRL, EOMI, accommodation nl, no face palsy, no dysarthria Psychiatric: A+Ox3, euthymic affect Results & Data Vital Signs (Past 12 Hours) Vital Signs Temp Pulse Pulse Resp BP BP Pulse Ox 12/31/19 07:42 36.9 C 60 18 111/74 92 12/31/19 03:40 36.7 C 81 18 117/74 93 12/31/19 00:00 80 12/30/19 23:34 36.7 C 52 L 19 98/64 L 94 12/30/19 22:38 80 107/71 12/30/19 22:05 87 94/68 L Laboratory Results Laboratory Results - last 24 hr 12/31/19 12/31/19 12/31/19 05:32 05:32 07:18 WBC 5.38 RBC 4.59 L Hgb 14.3 Hct 44.1 MCV 96.1 MCH 31.2 MCHC 32.4 RDW Std Deviation 48.2 H RDW Coeff of Adriana 13.6 Plt Count 173 MPV 12.0 H Sodium 137 Potassium 4.6 Chloride 104 Carbon Dioxide 28 Anion Gap 4.0 BUN 27 H Creatinine 1.42 H Est Cr Clr Drug Dosing 73.4 Est GFR ( Amer) 58.4 Est GFR (Non-Af Amer) 50.4 BUN/Creatinine Ratio 18.9 Glucose 96 POC Glucose 86 Calcium 8.2 L Magnesium 2.0 Triglycerides 79 Cholesterol 136 LDL Cholesterol, Calc 82 VLDL Cholesterol, Calc 16 HDL Cholesterol 38 Cholesterol/HDL Ratio 4
[2019-12-31] MEDS: METOPROLOL SUCC 25MG EXT REL TAB PO SCH ×2 (13:04→19:51)
--- NOTE | 2019-12-31 18:08 | Hospitalist Progress Note ---
Date of Service December 31, 2019 Assessment & Plan (1) Recurrent ventricular tachycardia: Recurrent ventricular tachycardia Bradycardia Likely Tachybradycardia syndrome ECHO: EF:30-35%, moderate global hypokinesis of the left ventricle. Right ventricle is moderately dilated. Left ventricle is mildly dilated. Right ventricular systolic function is normal. Mild MR, mild TR S/P Biventricular ICD Placement Appreciate Cardiology/EP Input Amiodarone, Carvedilol discontinued Started on Metoprolol 25mg TID Nocturnal oximetry study May need further evaluation to rule out underlying CAD/Ischemia Elevated Troponin Likely Type 2 SD secondary to VT in setting of THANH ECHO showed no focal wall motion abnormality Lipid Panel:normal Continue aspirin, Coreg May need further evaluation with stress test Acute Kidney Injury Baseline Cr 1.3 Cr:2.21>>1.42 Hold Lisinopril Received IV fluids Monitor renal function Avoid nephrotoxic agents as able Posttraumatic left shoulder/Back pain CT Head:No acute intracranial abnormality. L Shoulder X ray:No fracture or dislocation within the left shoulder. Chronic rotator cuff tear. T-Spine CT:No acute fractures or traumatic subluxations identified. 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 DVT Px: Heparin SQ Code Status Full code Admission and Anticipated Discharge Date Admission Date: December 29, 2019 Subjective Patient is seen and examined at bedside No new complaints today Had ICD placed yesterday Monitor showing ventricular tachycardia States feeling tired Denies any chest pain, SOB, dizziness, nausea, abdominal pain Review of Systems Review of Systems: All systems reviewed & are unremarkable except as noted in HPI & below Physical Exam Physical Exam: Physical Exam: Vitals signs as noted above General Appearance:Morbidly Obese, no apparent distress Head: normocephalic, Atraumatic Eyes: normal inspection, EOMI Neck: supple, Trachea midline Respiratory/Chest: Normal breath sounds, CTA, No accessory muscle use Cardiovascular: S1, S2, No murmur, +Pacemaker Abdomen/GI:Soft, Non tender, Bowel sounds present Extremities/Musculoskelatal:normal inspection, 1+ pedal edema Neurologic/Psych:AAOX3, grossly no focal neurological deficits Skin: normal color, warm Results & Data Results & Data ([facility]) Vital Signs (Past 12 Hours) Vital Signs Temp Pulse Pulse Resp BP BP Pulse Ox 12/31/19 15:11 36.6 C 60 18 122/82 96 12/31/19 11:43 36.6 C 63 19 104/63 94 12/31/19 07:42 36.9 C 60 18 111/74 92 Laboratory Results Short CBC 12/31/19 Range/Units 05:32 WBC 5.38 (4.8-10.8) K/uL Hgb 14.3 (14.0-18.0) g/dL Hct 44.1 (42-52) % Plt Count 173 (130-400) K/uL BMP 12/31/19 05:32 Sodium 137 Potassium 4.6 Chloride 104 Carbon Dioxide 28 BUN 27 H Creatinine 1.42 H Glucose 96 Calcium 8.2 L
--- NOTE | 2019-12-31 22:54 | Electrocardiogram Report ---
Test Reason : Blood Pressure : / mmHG Vent. Rate : 060 BPM Atrial Rate : 060 BPM P-R Int : 176 ms QRS Dur : 158 ms QT Int : 542 ms P-R-T Axes : 074 -31 126 degrees QTc Int : 542 ms Poor data quality, interpretation may be adversely affected AV dual-paced rhythm Abnormal ECG When compared with ECG of 30-DEC-2019 15:40, Vent. rate has decreased BY 20 BPM Confirmed by Louie Garcia ([id number]) on 12/31/2019 10:54:52 PM Referred By: REFERRED SELF Confirmed By:Louie Garcia
--- NOTE | 2019-12-31 23:03 | Electrocardiogram Report ---
Test Reason : Blood Pressure : / mmHG Vent. Rate : 065 BPM Atrial Rate : 062 BPM P-R Int : 176 ms QRS Dur : 178 ms QT Int : 534 ms P-R-T Axes : 053 -41 047 degrees QTc Int : 555 ms AV dual-paced rhythm with occasional ventricular-paced complexes and with occasional Premature ventri cular complexes Abnormal ECG When compared with ECG of 31-DEC-2019 07:42, Premature ventricular complexes are now Present Vent. rate has increased BY 5 BPM Confirmed by Louie Garcia ([id number]) on 12/31/2019 11:03:43 PM Referred By: REFERRED SELF Confirmed By:Louie Garcia
[2020-01-01 06:52] LABS: BUN Creatinine Ratio 17.2 (10-20); Calcium 8.6 mg/dl (8.5-10.1); Creatinine Clr Calc Pharmacy 82.9 ml/min; Est GFR (African American) 68.1; Est GFR (Non-African American) 58.8; Potassium 4.4 mmol/L (3.5-5.1)
[2020-01-01] MEDS: ACETAMINOPHEN 325 MG TAB PO PRN (07:23)
[2020-01-01] MEDS: METOPROLOL SUCC 25MG EXT REL TAB PO SCH (08:24)
[2020-01-01] MEDS: ASPIRIN 81 MG ECTAB PO SCH (08:24)
--- NOTE | 2020-01-01 10:07 | Cardiology Progress Note ---
Date of Service January 01, 2020 Assessment & Plan (1) Recurrent ventricular tachycardia: Patient had appt with EP in 2012 to discuss treatment of right ventricular VT. He declined attempted ablation at that time. He also declined ICD implant at that time. He never had f/u with EP since 2012. He has been maintained on low dose amiodarone and low dose carvedilol. Doses of medicaitons have been limited by bradycardia in the past. Now status post pacer defibrillator insertion. Continue to have ventricular tachycardia with ultimate goals control with high dose beta-blocke Plan: Increase Toprol to 50 mg p.o. 3 times daily. Maintain telemetry additional 24 hours Resume lisinopril 2.5 mg/day (2) Bradycardia: Status post dual-chamber pacer (3) Non-ischemic cardiomyopathy: (4) Elevated troponin: No chest pain on admission Likely due to ventricular arrhythmias Need to consider undelrying CAD/ischemia. His cath was in 2009 and does not appear that he has an ischemic work up since that time. Anticipate stress testing post discharge (5) THANH (acute kidney injury): Baseline creatinine around 1.3 in September 2019. Now 2.2 on admission. Improved during hospitalization. Resume lisinopril 2.5 mg/day as above (6) Bifascicular bundle branch block: Subjective Patient seen and examined, chart, medications, telemetry reviewed. No acute complaints though patient is aware of his heart racing at times. Continues to have intermittent ventricular tachycardia but less frequent. Blood pressure improving. Renal function returning towards baseline Physical Exam Constitutional: + obese Eyes: PERRL, conjunctivae normal, anicteric sclerae ENMT: external ear and nose normal, oropharynx normal Neck: + thick neck Respiratory: Auscultation: lungs clear to auscultation bilaterally Cardiovascular: Rate/Rhythm: regular rate and regular rhythm Heart Sounds: normal S1 and normal S2; no murmur Palpation: S3 nonpalpable Vessels: no JVD Extremities: + edema (1+ to knee) Chest (Breasts): Chest: + pacemaker (Site healing well) Gastrointestinal (Abdomen): normal bowel sounds, soft, nontender, no hepatosplenomegaly Neurologic: PERRL, EOMI, accommodation nl, no face palsy, no dysarthria Psychiatric: A+Ox3, euthymic affect Results & Data Vital Signs (Past 12 Hours) Vital Signs Temp Pulse Pulse Pulse Resp BP Pulse Ox 01/01/20 08:00 64 01/01/20 07:59 36.5 C 66 19 133/93 93 01/01/20 05:46 52 L 01/01/20 03:13 56 L 01/01/20 03:02 37.0 C 50 L 19 130/81 93 01/01/20 00:49 54 L 12/31/19 23:49 64 12/31/19 23:09 36.6 C 60 18 116/76 98 Pulse Ox 01/01/20 08:00 01/01/20 07:59 01/01/20 05:46 92 01/01/20 03:13 91 01/01/20 03:02 01/01/20 00:49 92 12/31/19 23:49 12/31/19 23:09 Laboratory Results Laboratory Results - last 24 hr 12/31/19 12/31/19 12/31/19 11:22 16:27 20:25 Sodium Potassium Chloride Carbon Dioxide Anion Gap BUN Creatinine Est Cr Clr Drug Dosing Est GFR ( Amer) Est GFR (Non-Af Amer) BUN/Creatinine Ratio Glucose POC Glucose 92 84 98 Calcium 01/01/20 01/01/20 05:27 07:18 Sodium 137 Potassium 4.4 Chloride 104 Carbon Dioxide 31 Anion Gap 2.0 L BUN 22 H Creatinine 1.25 Est Cr Clr Drug Dosing 82.9 Est GFR ( Amer) 68.1 Est GFR (Non-Af Amer) 58.8 BUN/Creatinine Ratio 17.2 Glucose 90 POC Glucose 84 Calcium 8.6
[2020-01-01] MEDS ORDERED: METOPROLOL SUCC 25MG EXT REL TAB PO STA (10:19)
[2020-01-01] MEDS: METOPROLOL SUCC 50MG EXT REL TAB PO SCH ×2 (13:22→20:25)
--- NOTE | 2020-01-01 14:36 | Hospitalist Progress Note ---
Date of Service January 01, 2020 Assessment & Plan (1) Recurrent ventricular tachycardia: Recurrent ventricular tachycardia Bradycardia Likely Tachybradycardia syndrome ECHO: EF:30-35%, moderate global hypokinesis of the left ventricle. Right ventricle is moderately dilated. Left ventricle is mildly dilated. Right ventricular systolic function is normal. Mild MR, mild TR S/P Biventricular ICD Placement Appreciate Cardiology/EP Input Amiodarone, Carvedilol discontinued Increased Metoprolol to 50 mg TID Lisinopril resumed at 2.5mg daily May need further evaluation to rule out underlying CAD/Ischemia likely as outpatient continue to monitor on Tele Nocturnal Hypoxia MICHAEL Not on CPAP due to Intolerance Oximetry study showed multiple desaturations Will need to use 2 liters of oxygen HS Elevated Troponin Likely Type 2 NH secondary to VT in setting of THANH ECHO showed no focal wall motion abnormality Lipid Panel:normal Continue aspirin, metoprolol May need further evaluation with stress test Acute Kidney Injury Baseline Cr 1.3 Cr:2.21>>1.42>>1.25 Received IV fluids Monitor renal function Avoid nephrotoxic agents as able Posttraumatic left shoulder/Back pain CT Head:No acute intracranial abnormality. L Shoulder X ray:No fracture or dislocation within the left shoulder. Chronic rotator cuff tear. T-Spine CT:No acute fractures or traumatic subluxations identified. Imaging studies negative for any acute process Reports chronic back pain Follows with chiropractor as outpatient Monitor Chronic systolic heart failure H/O Idiopathic cardiomyopathy ECHO as above Monitor Volume status Hypertension stable Continue current medications Past Tobacco Use Prediabetes Hb A1C:5.8 [employer] on lifestyle changes DVT Px: Heparin SQ Code Status Full code Admission and Anticipated Discharge Date Admission Date: December 29, 2019 Subjective Patient is seen and examined at bedside Had transient palpitations early this morning Less frequent VTs Denies any chest pain, SOB, dizziness, nausea, abdominal pain Qualifies for night oxygen Review of Systems Review of Systems: All systems reviewed & are unremarkable except as noted in HPI & below Physical Exam Physical Exam: Physical Exam: Vitals signs as noted above General Appearance:Morbidly Obese, no apparent distress Head: normocephalic, Atraumatic Eyes: normal inspection, EOMI Neck: supple, Trachea midline Respiratory/Chest: Normal breath sounds, CTA, No accessory muscle use Cardiovascular: S1, S2, No murmur, +Pacemaker Abdomen/GI:Soft, Non tender, Bowel sounds present Extremities/Musculoskelatal:normal inspection, 1+ pedal edema Neurologic/Psych:AAOX3, grossly no focal neurological deficits Skin: normal color, warm Results & Data Results & Data ([facility]) Vital Signs (Past 12 Hours) Vital Signs Temp Pulse Pulse Pulse Resp BP Pulse Ox 01/01/20 12:02 36.6 C 60 19 129/81 94 01/01/20 08:00 64 01/01/20 07:59 36.5 C 66 19 133/93 93 01/01/20 05:46 52 L 01/01/20 03:13 56 L 01/01/20 03:02 37.0 C 50 L 19 130/81 93 Pulse Ox 01/01/20 12:02 01/01/20 08:00 01/01/20 07:59 01/01/20 05:46 92 01/01/20 03:13 91 01/01/20 03:02 Laboratory Results [facility] 01/01/20 05:27 Sodium 137 Potassium 4.4 Chloride 104 Carbon Dioxide 31 BUN 22 H Creatinine 1.25 Glucose 90 Calcium 8.6
[2020-01-01] MEDS: HEPARIN SOD 5,000 UNIT/0.5 ML VIAL SQ SCH (20:24)
[2020-01-02] MEDS ORDERED: METOPROLOL SUCC 50MG EXT REL TAB PO SCH (01:00)
[2020-01-02] MEDS ORDERED: MAGNESIUM SULFATE / D5W 1 GM/100 ML BAG IV ONE (01:15)
[2020-01-02 01:59] LABS: Basophils # (auto) 0.03 K/uL (0-0.2); Basophils % (auto) 0.5 %; Eosinophils # (auto) 0.23 K/uL (0-0.5); Eosinophils % (auto) 3.5 %; Hematocrit (blood only) 43.4 % (42-52); Hemoglobin 14.1 g/dL (14.0-18.0); Immature Granulocytes # (auto) 0.02 K/uL (0.00-0.02); Immature Granulocytes % (auto) 0.3 %; Lymphocytes # (auto) 1.85 K/uL (1.2-3.4); Mean Corpuscular Hemoglobin 31.1 pg (25-34); Mean Corpuscular Hgb Conc 32.5 g/dL (32-36); Mean Corpuscular Volume 95.8 fL (80-100); Mean Platelet Volume 11.4 fL (7.4-10.4); Monocytes # (auto) 0.95 K/uL (0.11-0.59); Monocytes % (auto) 14.4 %; Neutrophils # (auto) 3.53 K/uL (1.4-6.5); Neutrophils % (auto) 53.3 %; Platelet Count 158 K/uL (130-400); RDW Coefficient of Variation 13.4 % (11.5-14.5); RDW Standard Deviation 46.8 fL (36.4-46.3); Red Blood Count 4.53 M/uL (4.7-6.1); White Blood Count 6.61 K/uL (4.8-10.8)
[2020-01-02] MEDS ORDERED: SODIUM CHLORIDE 0.9% 500 ML IV ONE (01:59)
[2020-01-02] MEDS ORDERED: METOPROLOL TARTRATE 1 MG/ML VIAL IV STA ×2 (02:00→03:20)
[2020-01-02 02:17] LABS: BUN Creatinine Ratio 18.7 (10-20); Calcium 8.7 mg/dl (8.5-10.1); Creatinine Clr Calc Pharmacy 72.5 ml/min; Est GFR (African American) 57.9; Magnesium 1.9 mg/dl (1.8-2.4); Potassium 4.3 mmol/L (3.5-5.1)
[2020-01-02 02:18] LABS: Partial Thromboplastin Ratio 1.2; Partial Thromboplastin Time 32.5 Seconds (21.0-31.0)
--- NOTE | 2020-01-02 02:24 | Communication Note ---
Date of Service: January 02, 2020 Persistent VT on the monitor overnight. CR 120-140s as per RN. SBP 110s Patient comfortable. serum crea 1.43 from 1.25 (6/) AP Recurrent VT Currently stable ARF Facilitate current oral beta-javi ordered by Cardiology. IV Lopressor Baseline UA, IVF, hold MÓNICA inhibitor for now Contact cardiology if without improvement following above intervention.
[2020-01-02] MEDS ORDERED: ALBUMIN 25% 50 ML IV ONE (03:21)
[2020-01-02 05:34] LABS: Appearance Urine Clear (Clear); Bilirubin Urine Negative (Negative); Blood Urine Negative (Negative); Color Urine Yellow; Glucose Urine UA Negative (Negative); Ketones Urine Negative (Negative); Leukocyte Esterase Urine Negative (Negative); Nitrite Urine Negative (Negative); Protein Urine Negative (Negative); Specific Gravity Urine 1.019 (1.000-1.030); Urobilinogen Urine Negative (Negative)
[2020-01-02] MEDS: METOPROLOL SUCC 50MG EXT REL TAB PO SCH ×2 (06:43→13:05)
[2020-01-02] MEDS: ASPIRIN 81 MG ECTAB PO SCH (07:40)
[2020-01-02] MEDS: HEPARIN SOD 5,000 UNIT/0.5 ML VIAL SQ SCH (07:40)
--- NOTE | 2020-01-02 11:14 | Cardiology Progress Note ---
Date of Service January 02, 2020 Assessment & Plan (1) Recurrent ventricular tachycardia: Patient had appt with EP in 2012 to discuss treatment of right ventricular VT. He declined attempted ablation at that time. He also declined ICD implant at that time. He never had f/u with EP since 2012. He has been maintained on low dose amiodarone and low dose carvedilol. Doses of medicaitons have been limited by bradycardia in the past. Now status post pacer defibrillator insertion. Continue to have ventricular tachycardia with ultimate goals control with high dose beta-blocke Plan: Patient still with persistent ventricular tachycardia episodes despite high-dose beta-blockers with Toprol-XL 50 mg twice daily. Will likely require ablative therapy versus further antiarrhythmic question reload amiodarone We will make arrangements to transfer to [facility] for EP evaluation and possible ablation (2) Bradycardia: Status post dual-chamber pacer defibrillator set to VF therapies (3) Non-ischemic cardiomyopathy: (4) Elevated troponin: No chest pain on admission Likely due to ventricular arrhythmias Need to consider undelrying CAD/ischemia. His cath was in 2009 and does not appear that he has an ischemic work up since that time. Anticipate stress testing post discharge (5) THANH (acute kidney injury): Baseline creatinine around 1.3 in September 2019. Now 2.2 on admission. Improved during hospitalization. Resume lisinopril 2.5 mg/day will likely require diuretic (6) Bifascicular bundle branch block: Subjective Patient seen and examined, chart, medications, telemetry reviewed. Patient disgruntled regarding ongoing course. Continues to have long salvos of sustained ventricular tachycardia. No acute chest pain or dyspnea though lower extremity edema slightly more pronounced. No syncope or near syncope. Has had difficulty sleeping in hospital concern regarding poor progress of treatment Physical Exam Constitutional: + obese Eyes: PERRL, conjunctivae normal, anicteric sclerae ENMT: external ear and nose normal, oropharynx normal Neck: + thick neck Respiratory: Auscultation: lungs clear to auscultation bilaterally Cardiovascular: Rate/Rhythm: regular rate and regular rhythm Heart Sounds: normal S1 and normal S2; no murmur Palpation: S3 nonpalpable Vessels: no JVD Extremities: + edema (1+ to knee) Chest (Breasts): Chest: + pacemaker (Site healing well) Gastrointestinal (Abdomen): normal bowel sounds, soft, nontender, no hepatosplenomegaly Neurologic: PERRL, EOMI, accommodation nl, no face palsy, no dysarthria Psychiatric: A+Ox3, euthymic affect Results & Data Vital Signs (Past 12 Hours) Vital Signs Temp Pulse Pulse Pulse Resp BP BP 01/02/20 06:37 36.3 C L 70 20 105/72 01/02/20 03:10 36.5 C 120 H 18 119/76 01/02/20 02:20 140 H 119/76 01/02/20 00:00 126 H Pulse Ox 01/02/20 06:37 94 01/02/20 03:10 91 01/02/20 02:20 01/02/20 00:00 Laboratory Results Laboratory Results - last 24 hr 01/01/20 01/01/20 01/02/20 16:27 20:50 01:42 WBC RBC Hgb Hct MCV MCH MCHC RDW Std Deviation RDW Coeff of Adriana Plt Count MPV Immature Gran % (Auto) Neut % (Auto) Lymph % (Auto) [place] % (Auto) Eos % (Auto) Baso % (Auto) Immature Gran # (Auto) Neut # (Auto) Lymph # (Auto) [place] # (Auto) Eos # (Auto) Baso # (Auto) APTT PTT Ratio Sodium 140 Potassium 4.3 Chloride 105 Carbon Dioxide 28 Anion Gap 7.0 BUN 27 H Creatinine 1.43 H Est Cr Clr Drug Dosing 72.5 Est GFR ( Amer) 57.9 Est GFR (Non-Af Amer) 50.0 BUN/Creatinine Ratio 18.7 Glucose 96 POC Glucose 88 93 Calcium 8.7 Magnesium 1.9 Urine Color Urine Appearance Urine pH Ur Specific [place] Urine Protein Urine Glucose (UA) Urine Ketones Urine Blood Urine Nitrite Urine Bilirubin Urine Urobilinogen Ur Leukocyte Esterase 01/02/20 01/02/20 01/02/20 01:42 01:42 05:07 WBC 6.61 RBC 4.53 L Hgb 14.1 Hct 43.4 MCV 95.8 MCH 31.1 MCHC 32.5 RDW Std Deviation 46.8 H RDW Coeff of Adriana 13.4 Plt Count 158 MPV 11.4 H Immature Gran % (Auto) 0.3 Neut % (Auto) 53.3 Lymph % (Auto) 28.0 [place] % (Auto) 14.4 Eos % (Auto) 3.5 Baso % (Auto) 0.5 Immature Gran # (Auto) 0.02 Neut # (Auto) 3.53 Lymph # (Auto) 1.85 [place] # (Auto) 0.95 H Eos # (Auto) 0.23 Baso # (Auto) 0.03 APTT 32.5 H PTT Ratio 1.2 Sodium Potassium Chloride Carbon Dioxide Anion Gap BUN Creatinine Est Cr Clr Drug Dosing Est GFR ( Amer) Est GFR (Non-Af Amer) BUN/Creatinine Ratio Glucose POC Glucose Calcium Magnesium Urine Color Yellow Urine Appearance Clear Urine pH 5.0 Ur Specific [place] 1.019 Urine Protein Negative Urine Glucose (UA) Negative Urine Ketones Negative Urine Blood Negative Urine Nitrite Negative Urine Bilirubin Negative Urine Urobilinogen Negative Ur Leukocyte Esterase Negative
--- NOTE | 2020-01-02 12:17 | Hospitalist Progress Note ---
Date of Service January 02, 2020 Assessment & Plan (1) Recurrent ventricular tachycardia: Recurrent ventricular tachycardia Bradycardia Likely Tachybradycardia syndrome ECHO: EF:30-35%, moderate global hypokinesis of the left ventricle. Right ventricle is moderately dilated. Left ventricle is mildly dilated. Right ventricular systolic function is normal. Mild MR, mild TR S/P Biventricular ICD Placement Appreciate Cardiology/EP Input Amiodarone, Carvedilol discontinued Increased Metoprolol to 50 mg TID Lisinopril resumed at 2.5mg daily continues to have VTs despite high dose beta blockers Needs ablation by EP Planned to be transferred to [facility] for further eval and management kindly accepted the patient. Nocturnal Hypoxia MICHAEL Not on CPAP due to Intolerance Oximetry study showed multiple desaturations Will need to use 2 liters of oxygen HS Elevated Troponin Likely Type 2 AL secondary to VT in setting of THANH ECHO showed no focal wall motion abnormality Lipid Panel:normal Continue aspirin, metoprolol May need further evaluation with stress test Acute Kidney Injury Baseline Cr 1.3 Cr:2.21>>1.43 Received IV fluids Monitor renal function Avoid nephrotoxic agents as able Posttraumatic left shoulder/Back pain CT Head:No acute intracranial abnormality. L Shoulder X ray:No fracture or dislocation within the left shoulder. Chronic rotator cuff tear. T-Spine CT:No acute fractures or traumatic subluxations identified. Imaging studies negative for any acute process Reports chronic back pain Follows with chiropractor as outpatient Monitor Chronic systolic heart failure H/O Idiopathic cardiomyopathy ECHO as above Monitor Volume status Hypertension stable Continue current medications Past Tobacco Use Prediabetes Hb A1C:5.8 [employer] on lifestyle changes DVT Px: Heparin SQ Code Status Full code Admission and Anticipated Discharge Date Admission Date: December 29, 2019 Subjective Patient is seen and examined at bedside Continues to have VTs Poorly slept overnight States feeling tired Reports intermittent palpitations Denies any chest pain, SOB, dizziness, nausea, abdominal pain Discussed with Cardiology today Review of Systems Review of Systems: All systems reviewed & are unremarkable except as noted in HPI & below Physical Exam Physical Exam: Physical Exam: Vitals signs as noted above General Appearance:Morbidly Obese, no apparent distress Head: normocephalic, Atraumatic Eyes: normal inspection, EOMI Neck: supple, Trachea midline Respiratory/Chest: Normal breath sounds, CTA, No accessory muscle use Cardiovascular: S1, S2, No murmur, +Pacemaker Abdomen/GI:Soft, Non tender, Bowel sounds present Extremities/Musculoskelatal:normal inspection, 1+ pedal edema Neurologic/Psych:AAOX3, grossly no focal neurological deficits Skin: normal color, warm Results & Data Results & Data ([facility]) Vital Signs (Past 12 Hours) Vital Signs Temp Pulse Pulse Pulse Resp BP BP 01/02/20 11:52 36.5 C 61 17 112/70 01/02/20 06:37 36.3 C L 70 20 105/72 01/02/20 03:10 36.5 C 120 H 18 119/76 01/02/20 02:20 140 H 119/76 Pulse Ox 01/02/20 11:52 96 01/02/20 06:37 94 01/02/20 03:10 91 01/02/20 02:20 Laboratory Results Short CBC 01/02/20 Range/Units 01:42 WBC 6.61 (4.8-10.8) K/uL Hgb 14.1 (14.0-18.0) g/dL Hct 43.4 (42-52) % Plt Count 158 (130-400) K/uL BMP 01/02/20 01:42 Sodium 140 Potassium 4.3 Chloride 105 Carbon Dioxide 28 BUN 27 H Creatinine 1.43 H Glucose 96 Calcium 8.7 Urine 01/02/20 Range/Units 05:07 Urine Color Yellow Urine Appearance Clear (Clear) Urine pH 5.0 (4.5-7.5) Ur Specific [place] 1.019 (1.000-1.030) Urine Protein Negative (Negative) Urine Glucose (UA) Negative (Negative)
--- NOTE | 2020-01-02 17:21 | Discharge Summary ---
Date of Service January 02, 2020 Admission HPI Per Admitting Provider History obtained from patient and records. Medical history significant for chronic systolic heart failure secondary to idiopathic cardiomyopathy (EF 35 to 40%, TTE 2018), history RVOT VT as per records, MICHAEL not on CPAP, hypertension, past tobacco abuse. Last confinement December 2012 for ventricular tachycardia status post cardioversion. Patient refused ICD recommendation as per outpatient records. Patient fell off his bed yesterday morning. No head trauma, LOC. Patient complaining of left shoulder, upper back pain throughout the day. No chest pain, no S OB. Early this morning patient was tinkering with some box when he experienced dizziness described as lightheadedness, diaphoreses, worsening left shoulder discomfort. Achy headache symptoms. At the ER, patient had transient VT on the monitor/telemetry strips. IV amiodarone started at the ER. Cardiac rate currently in the 50s. 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 Admission Exam Per Admitting Provider Physical Exam Physical Exam: GENERAL: Comfortable, morbidly obese, no respiratory distress SKIN: Normal color, warm HEENT: Alopecia, bespectacled, [place] palpebral conjunctivae, no ptosis, dry buccal mucosa NECK : Supple, short neck, no tenderness CHEST : Decreased breath sounds , no tenderness HEART : Bradycardic , no obvious murmurs ABDOMEN: Some distention, nontender EXTREMITIES : Minimal LE swelling, no LE tenderness, no other conspicuous deformities noted NEUROLOGIC : Coherent, no facial asymmetry, mild hearing impairment, no other gross focality Principal Diagnosis Recurrent Ventricular Tachycardia Nocturnal Hypoxia Acute Kidney Injury Discharge Data Allergies Allergy/AdvReac Type Severity Reaction Status Date / Time GENARO-YELLOW SODA Allergy Unknown . Uncoded 12/29/19 04:17 Consultations 12/29/19 04:29 ED Decision to Admit Stat 12/29/19 09:18 Consult Cardiology Routine 12/29/19 12:12 Consult Cardiology Routine Procedures Performed Operation Date: 12/30/19 12:00 Actual Procedures p ICD Insertion Single or Dual - Maximo Woodard MD s Lead LV (No Priopr Implant) - Maximo Woodard MD ECHO: EF:30-35%, moderate global hypokinesis of the left ventricle. Right ventricle is moderately dilated. Left ventricle is mildly dilated. Right ventricular systolic function is normal. Mild MR, mild TR CT Head:No acute intracranial abnormality. L Shoulder X ray:No fracture or dislocation within the left shoulder. Chronic rotator cuff tear. T-Spine CT:No acute fractures or traumatic subluxations identified. Ordered Studies 12/29/19 05:55 CT head/brain wo con Urgent 12/29/19 05:56 CT thoracic spine wo con Urgent 12/30/19 12:05 CL Cath Imgs for PACS use only Routine Hospital Course (1) Recurrent ventricular tachycardia: Recurrent ventricular tachycardia Bradycardia Likely Tachybradycardia syndrome ECHO: EF:30-35%, moderate global hypokinesis of the left ventricle. Right ventricle is moderately dilated. Left ventricle is mildly dilated. Right ventricular systolic function is normal. Mild MR, mild TR S/P Biventricular ICD Placement Appreciate Cardiology/EP Input Amiodarone, Carvedilol discontinued Increased Metoprolol to 50 mg TID Lisinopril resumed at 2.5mg daily continues to have VTs despite high dose beta blockers Needs ablation by EP Planned to be transferred to [facility] for further eval and management kindly accepted the patient. Nocturnal Hypoxia MICHAEL Not on CPAP due to Intolerance Oximetry study showed multiple desaturations Will need to use 2 liters of oxygen HS Elevated Troponin Likely Type 2 CT secondary to VT in setting of THANH ECHO showed no focal wall motion abnormality Lipid Panel:normal Continue aspirin, metoprolol May need further evaluation with stress test Acute Kidney Injury Baseline Cr 1.3 Cr:2.21>>1.43 Received IV fluids Monitor renal function Avoid nephrotoxic agents as able Posttraumatic left shoulder/Back pain CT Head:No acute intracranial abnormality. L Shoulder X ray:No fracture or dislocation within the left shoulder. Chronic rotator cuff tear. T-Spine CT:No acute fractures or traumatic subluxations identified. 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 DVT Px: Heparin SQ Code Status Full code Total Time Total Time Spent Total Time Spent (In Minutes): 40 minutes Total Time Includes: Examination of the Patient, Discharge Planning, Medication Reconciliation, Communication With Other Providers and Other Discharge Plan Discharge Items Patient Disposition: Transfer Acute Care Hospital Reason For Visit: RECURRENT VT, ARF Discharge Diagnosis: Recurrent Ventricular Tachycardia Nocturnal Hypoxia Acute Kidney Injury Activity: Per Instructions section Exercise/Sports: Wait until after follow-up appointment Non-emergency contact: Primary Care Provider and Activities Counselor Call non-emergency contact if: you have any medication questions, your symptoms worsen, your pain is not controlled, your pain is worsening, your pain is unusual for you, your pain is concerning for you and you have a fever Follow-up/Referrals: Valentín Pompa MD [Primary Care Provider] - 01/06/20 3:20 pm (01/06/2020 3:20 PM Provider Fredrick Pollard DO [facility] ) Diet: Heart Healthy Addtl Attending Provider Instructions: Follow-up with your with accepting viner operator at [facility] for further evaluation and possible ablation for recurrent ventricular tachycardia Follow-up with your primary care physician in 1 week upon discharge from the hospital Use oxygen 2 L via nasal cannula at bedtime as advised. Seek immediate medical attention if your symptoms reoccur or worsen Pending Studies at Discharge: No Stand-Alone Forms: My [facility] Skilled Items Patient informed of condition?: Yes DNR: No Discharge Level of Care: Other Communicable Disease: No Discharge Prognosis: Stable Lines: Peripheral IV Urinary Catheter: No Medications and DC Order Prescriptions: New metoprolol succinate 50 mg Tablet Extended Release 24 Hr 50 mg PO TID Qty: 0 RF: 0 Continued aspirin 81 mg Tablet,Delayed Release (Dr/Ec) 81 mg PO DAILY RF: 0 lisinopril 5 mg Tablet 5 mg PO DAILY RF: 0 magnesium oxide 400 mg magnesium Tablet 400 mg PO DAILY RF: 0 Discontinued carvedilol 6.25 mg Tablet 6.25 mg PO DAILY RF: 0 amiodarone 200 mg Tablet 200 mg PO DAILY RF: 0 Discharge Orders: Discharge Order (Routine); Ordered 01/02/20 Ordered By: Wilman James Admission Data Admit Date/Time: 12/29/19 07:24 Attending Provider: Wilman James Admit Provider: Mustapha Iraheta Primary Care Provider: Valentín Pompa Other Providers: Mustapha Iraheta ; Duran Rashid ; Maximo Woodard Other Interventions: Discharge Summary Assessment (RN) Last Done: 01/02/20 13:39 DC Date/Time DO NOT enter until pt leaves facility: 01/02/20 13:40
== END 2020-01-02 13:40 | disposition short-term general hospital (02) | DRG 227 ==
LOC: ED 03:20 → 2S 07:24
PROC: EPB.ICD (2019-12-30 12:00)

== ENCOUNTER 2021-09-19 17:39 | Inpatient (IN) ==
[2021-09-19] MEDS ORDERED: SODIUM CHLORIDE 0.9% 500 ML IV STA (17:47)
[2021-09-19 18:47] LABS: Hematocrit (blood only) 40.6 % (42-52); Hemoglobin 13.6 g/dL (14.0-18.0); Mean Corpuscular Hemoglobin 32.8 pg (25-34); Mean Corpuscular Hgb Conc 33.5 g/dL (32-36); Mean Corpuscular Volume 97.8 fL (80-100); Mean Platelet Volume 11.5 fL (7.4-10.4); Platelet Count 222 K/uL (130-400); RDW Coefficient of Variation 13.2 % (11.5-14.5); RDW Standard Deviation 47.3 fL (36.4-46.3); Red Blood Count 4.15 M/uL (4.7-6.1); White Blood Count 12.54 K/uL (4.8-10.8)
[2021-09-19 19:04] LABS: BUN Creatinine Ratio 16.9 (10-20); Creatinine Clr Calc Pharmacy 53.4 ml/min; Est GFR (African American) 39.2 ml/min; Est GFR (Non-African American) 33.9 ml/min; Potassium 4.5 mmol/L (3.5-5.1)
[2021-09-19] MEDS ORDERED: SODIUM CHLORIDE 0.9% 1000ML 500 ML IV ONE (19:25)
[2021-09-19] MEDS ORDERED: MoRPHine SULFATE 4 MG/ML 1 ML CARP\\VIAL IV STA (19:34)
[2021-09-19] MEDS ORDERED: ONDANSETRON INJ 2 MG/ML 2 ML VIAL IV STA (19:34)
[2021-09-19] MEDS ORDERED: ACETAMINOPHEN 1000 MG/100 ML IV IV STA (19:34)
[2021-09-19] MEDS ORDERED: MoRPHine SULFATE 4 MG/ML 1 ML CARP\\VIAL ONE (19:36)
[2021-09-19] MEDS ORDERED: ACETAMINOPHEN 1000 MG/100 ML IV IV ONE (19:37)
[2021-09-19] MEDS ORDERED: ONDANSETRON INJ 2 MG/ML 2 ML VIAL ONE (19:37)
--- NOTE | 2021-09-19 19:38 | Emergency Department Note ---
Impression & Plan Acute left flank pain, Hematuria, Acute UTI, Renal hematoma ED Provider Note NAME: ASHA LEMUS AGE: 71 SEX: M : 1950 ARRIVES VIA: Walk-In INFORMANT: [Patient] ED PROVIDER(S): [Michele Curtis MD] CHIEF COMPLAINT: Flank pain HISTORY OF PRESENT ILLNESS: The patient is a 71-year-old male presents to the ER with left flank pain that began fairly suddenly at around 3 PM, 4-1/2 hours ago. The pain is a 9 on a scale of 1-10. He has noticed some blood in his urine. There has been some sweating, no vomiting. The patient states he has had kidney stones before and he believes this may be a kidney stone. He felt fine earlier in the day before the pain began. The patient takes aspirin, no stronger blood thinners. REVIEW OF SYSTEMS: See HPI for pertinent positives and negatives. A total of ten systems were reviewed and were otherwise negative. PMHx/PSHx: See Below SOCIAL HISTORY: See Below. PHYSICAL EXAM: GENERAL: Patient is in no acute distress. HEENT: No acute trauma, normocephalic atraumatic, mucous membranes moist, no nasal congestion, no scleral icterus. NECK: No stridor, no adenopathy, no meningismus, trachea is midline. LUNGS: Clear to auscultation bilaterally when listening anterior, no wheeze, no rhonchi, breath sounds equal. HEART: Without murmurs gallops or rubs, regular rate and rhythm. ABDOMEN: Soft, moderately tender along the entire left side of the abdomen, bowel sounds positive, no peritonitis. EXTREMITIES: No cyanosis, moderate bilateral pedal edema, full range of motion of all the joints without pain or difficulty, no signs for acute trauma. NEUROLOGIC: Oriented x 3, no acute motor or sensory deficits, no focal weakness. SKIN: No rash, no jaundice, no diaphoresis. Pale. DIFFERENTIAL DIAGNOSIS: Renal colic, renal failure, renal abscess, renal hematoma, UTI, appendicitis, diverticulitis, mesenteric ischemia, aortic pathology, infections, inflammatory bowel disease, PUD, biliary pathology, as well as other pathologies. EMERGENCY DEPARTMENT COURSE/PROCEDURES: MEDICAL DECISION MAKING: There is a mild leukocytosis which could be consistent with infection. The patient does have a very mild anemia. There is a normal platelet count. Creatinine is elevated a bit at 1.95. The patient does have a history of renal insufficiency. Urinalysis is positive for infection as well as hematuria. Abdominal and pelvis CT does not show hydronephrosis. A subcapsular left renal hematoma was seen. The patient was given IV morphine for pain, IV Zofran for nausea. He was given IV saline, 1 L. He received IV ceftriaxone as antibiotic coverage. He was given IV Tylenol. I did speak with urology. Conservative measures were advised. Hospitalization was warranted. 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 The on-call hospitalist was consulted. The findings of the renal hematoma certainly explains his pain. 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 Uncoded 09/19/21 19:52 Home Meds Home Medications Medication Instructions Recorded Confirmed aspirin 81 mg tablet,delayed 81 mg PO DAILY 12/29/19 09/19/21 release lisinopril 5 mg tablet 5 mg PO DAILY 12/29/19 09/19/21 magnesium oxide 400 mg PO DAILY 12/29/19 09/19/21 amiodarone 200 mg tablet 200 mg PO BID 02/25/21 09/19/21 atorvastatin 40 mg tablet 40 mg PO DAILY 02/25/21 09/19/21 furosemide 40 mg tablet 40 mg PO BID 02/25/21 09/19/21 sildenafil 100 mg tablet 100 mg PO DAILY PRN 02/25/21 09/19/21 tramadol 50 mg tablet 50 mg PO Q6H PRN 02/25/21 09/19/21 acetaminophen 500 mg capsule 1,000 mg PO Q6H PRN cap 05/01/21 09/19/21 metoprolol succinate 50 mg 200 mg PO DAILY 09/19/21 09/19/21 tablet,extended release 24 hr Results & Data (ED) Vital Signs Vital Signs - 24 hr 09/19/21 17:44 09/19/21 19:39 Temperature 36.5 C Temperature Source Oral Pulse Rate 89 Pulse Rate [Apical] 88 Respiratory Rate 22 20 Respiratory Effort / Characteristics Non-Labored Spontaneous Non-Labored Respiratory Depth Normal Normal Respiratory Pattern Regular Blood Pressure 136/67 Blood Pressure [Right Arm] 119/52 L Blood Pressure Mean 90 Blood Pressure Mean [Right Arm] 74 Pulse Oximetry 91 94 Oxygen Delivery Method Room Air Sepsis Recent Fever Within 48 Hours No Sepsis New/Unexplained Change in Mental Status No Sepsis Action Taken by Nursing No Action Required Home Medications Current Medication List: was personally reviewed by me Laboratory Data Attestation: I reviewed the patient's lab results. Result diagrams: 09/19/21 18:30 09/19/21 18:30 Lab Results 09/19/21 09/19/21 09/19/21 Range/Units 18:30 18:30 18:30 WBC 12.54 H (4.8-10.8) K/uL RBC 4.15 L (4.7-6.1) M/uL Hgb 13.6 L (14.0-18.0) g/dL Hct 40.6 L (42-52) % MCV 97.8 (80-100) fL MCH 32.8 (25-34) pg MCHC 33.5 (32-36) g/dL RDW Std Deviation 47.3 H (36.4-46.3) fL RDW Coeff of Adriana 13.2 (11.5-14.5) % Plt Count 222 (130-400) K/uL MPV 11.5 H (7.4-10.4) fL Sodium 138 (136-145) mmol/L Potassium 4.5 (3.5-5.1) mmol/L Chloride 100 (98-107) mmol/L Carbon Dioxide 31 (21-32) mmol/L Anion Gap 7 (3-11) BUN 33 H (6-23) mg/dl Creatinine 1.95 H (0.6-1.4) mg/dl Est Cr Clr Drug Dosing 53.4 ml/min Est GFR ( Amer) 39.2 ml/min Est GFR (Non-Af Amer) 33.9 ml/min BUN/Creatinine Ratio 16.9 (10-20) Glucose 146 H (70-99(Fasting)) mg/dl Calcium 9.0 (8.5-10.1) mg/dl Magnesium 2.0 (1.7-2.4) mg/dl Urine Color Urine Appearance (Clear) Urine pH (4.5-7.5) Ur Specific [place] (1.000-1.030) Urine Protein (Negative) Urine Glucose (UA) (Negative) Urine Ketones (Negative) Urine Blood (Negative) Urine Nitrite (Negative) Urine Bilirubin (Negative) Urine Urobilinogen (Negative) Ur Leukocyte Esterase (Negative) Urine RBC (0-4) /hpf Urine WBC (0-5) /hpf Ur Epithelial Cells (0-5) /lpf Urine Bacteria (Negative) 09/19/21 Range/Units 19:22 WBC (4.8-10.8) K/uL RBC (4.7-6.1) M/uL Hgb (14.0-18.0) g/dL Hct (42-52) % MCV (80-100) fL MCH (25-34) pg MCHC (32-36) g/dL RDW Std Deviation (36.4-46.3) fL RDW Coeff of Adriana (11.5-14.5) % Plt Count (130-400) K/uL MPV (7.4-10.4) fL Sodium (136-145) mmol/L Potassium (3.5-5.1) mmol/L Chloride (98-107) mmol/L Carbon Dioxide (21-32) mmol/L Anion Gap (3-11) BUN (6-23) mg/dl Creatinine (0.6-1.4) mg/dl Est Cr Clr Drug Dosing ml/min Est GFR ( Amer) ml/min Est GFR (Non-Af Amer) ml/min BUN/Creatinine Ratio (10-20) Glucose (70-99(Fasting)) mg/dl Calcium (8.5-10.1) mg/dl Magnesium (1.7-2.4) mg/dl Urine Color Red Urine Appearance Cloudy A (Clear) Urine pH 5.0 (4.5-7.5) Ur Specific [place] >= 1.030 (1.000-1.030) Urine Protein 3+ H (Negative) Urine Glucose (UA) Trace H (Negative) Urine Ketones Trace H (Negative) Urine Blood 3+ H (Negative) Urine Nitrite Positive A (Negative) Urine Bilirubin 2+ H (Negative) Urine Urobilinogen Negative (Negative) Ur Leukocyte Esterase Negative (Negative) Urine RBC >30 H (0-4) /hpf Urine WBC 5-10 H (0-5) /hpf Ur Epithelial Cells 0-5 (0-5) /lpf Urine Bacteria 3+ H (Negative) Administered Medications Discontinued Medications Acetaminophen (Acetaminophen 1000 Mg/100 Ml Iv) 1,000 mg IV NOW STA Stop: 09/19/21 19:35 Last Admin: 09/19/21 19:40 Dose: 1,000 mg Documented by: [id number] Acetaminophen (Acetaminophen 1000 Mg/100 Ml Iv) Confirm Administered Dose 1,000 mg IV .STK-MED ONE Stop: 09/19/21 19:38 Last Admin: 09/19/21 19:47 Dose: Not Given Documented by: [id number] Sodium Chloride (Nss) 500 mls @ 999 mls/hr IV .Q31M STA Stop: 09/19/21 18:17 Last Infusion: 09/19/21 20:21 Dose: 0 mls/hr Documented by: [id number] Admin: 09/19/21 19:28 Dose: 999 mls/hr Documented by: [id number] Sodium Chloride (Nss 1000ml) 500 mls @ 999 mls/hr IV .Q31M ONE Stop: 09/19/21 19:55 Last Infusion: 09/19/21 20:21 Dose: 0 mls/hr Documented by: [id number] Admin: 09/19/21 19:28 Dose: 999 mls/hr Documented by: [id number] Ceftriaxone Sodium (Rocephin) 2,000 mg in 70 mls @ 140 mls/hr IV NOW STA Stop: 09/19/21 20:36 Last Admin: 09/19/21 20:20 Dose: 140 mls/hr Documented by: [id number] Morphine Sulfate (Morphine Sulfate 4 Mg/Ml 1 Ml Carp\Vial) 4 mg IV NOW STA Stop: 09/19/21 19:35 Last Admin: 09/19/21 19:40 Dose: 4 mg Documented by: [id number] Morphine Sulfate (Morphine Sulfate 4 Mg/Ml 1 Ml Carp\Vial) Confirm Administered Dose 4 mg .ROUTE .STK-MED ONE Stop: 09/19/21 19:37 Last Admin: 09/19/21 19:47 Dose: Not Given Documented by: [id number] Ondansetron HCl (Ondansetron Inj 2 Mg/Ml 2 Ml Vial) 4 mg IV NOW STA Stop: 09/19/21 19:35 Last Admin: 09/19/21 19:40 Dose: 4 mg Documented by: [id number] Ondansetron HCl (Ondansetron Inj 2 Mg/Ml 2 Ml Vial) Confirm Administered Dose 4 mg .ROUTE .STK-MED ONE Stop: 09/19/21 19:38 Last Admin: 09/19/21 19:47 Dose: Not Given Documented by: [id number] Imaging Data Radiologist's Impression: Abdomen/Pelvis CT 09/19/21 19:25 CT OF THE ABDOMEN AND PELVIS WITHOUT CONTRAST CLINICAL HISTORY: Left flank pain. COMPARISON STUDY: CT of the chest and abdomen February 08, 2010. TECHNIQUE: Axial images of the abdomen and pelvis were obtained without IV contrast. Images were reviewed in the axial, sagittal, and coronal planes. Automated exposure control was utilized for the study. A dose lowering technique was utilized adhering to the principles of ALARA. FINDINGS: A 6 mm right lower lobe pulmonary nodules unchanged since CT of February 09, 2020. This is benign given stability. Pacer leads are partially imaged. There is cardiomegaly. No pneumatosis, free air or portal venous gas is present. Unenhanced images of the liver, spleen, adrenal glands and pancreas are unremarkable. There is no biliary or pancreatic ductal dilatation. There is no hydronephrosis. Note is made of a large acute left renal subcapsular hematoma. This measures 4.4 cm in thickness and has significant mass effect upon the kidney. There is also moderate hemorrhage within and adjacent to the left Gerota's fascia. Multiple left renal lesions are noted. These are suboptimally assessed on this unenhanced exam. Several measure water attenuation and favor cysts. No urinary calculi are identified. There is no evidence for a bowel obstruction. No acute fracture or suspicious lesion is identified within visualized skeletal structures. There are fat-containing bilateral inguinal hernias. IMPRESSION: Large acute left renal subcapsular hematoma with moderate hemorrhage within and adjacent to Gerota's fascia. This hematoma has significant mass effect upon the kidney. The etiology for this hemorrhage is not clear and a follow-up MR or CT renal protocol in 3 months to exclude an underlying renal mass is recommended. Findings discussed with Dr. Curtis at time of dictation. ACT 112: Negative or not required by law. Electronically signed by: Bruno Palma M.D. 09/19/2021 8:53 PM Discharge Plan Visit Data Chief Complaint: Flank Pain Stated Complaint: LT SIDE FLANK PAIN, BLOOD IN URINE ED Provider: Michele Curtis Discharge Problem: Acute left flank pain, Hematuria, Acute UTI, Renal hematoma Patient Disposition: Admitted As Inpatient Condition: Fair Forms Stand Alone Forms: My [email or web address].me Prescriptions Prescriptions: No Action atorvastatin 40 mg tablet 40 mg PO DAILY RF: 0 sildenafil 100 mg tablet 100 mg PO DAILY PRN (Reason: Erectile Dysfunction) RF: 0 amiodarone 200 mg tablet 200 mg PO BID RF: 0 furosemide 40 mg tablet 40 mg PO BID RF: 0 tramadol 50 mg tablet 50 mg PO Q6H PRN (Reason: Pain) RF: 0 acetaminophen 500 mg capsule 1,000 mg PO Q6H PRN (Reason: Pain) RF: 0 aspirin 81 mg Tablet,Delayed Release (Dr/Ec) 81 mg PO DAILY RF: 0 lisinopril 5 mg Tablet 5 mg PO DAILY RF: 0 magnesium oxide 400 mg magnesium Tablet 400 mg PO DAILY RF: 0 metoprolol succinate 50 mg tablet extended release 24 hr 200 mg PO DAILY RF: 0 Referrals Referrals: Valentín Pompa MD [Primary Care Provider] -
[2021-09-19 19:48] LABS: Appearance Urine Cloudy (Clear); Bilirubin Urine 2+ (Negative); Blood Urine 3+ (Negative); Color Urine Red; Glucose Urine UA Trace (Negative); Ketones Urine Trace (Negative); Leukocyte Esterase Urine Negative (Negative); Nitrite Urine Positive (Negative); Protein Urine 3+ (Negative); Specific Gravity Urine >= 1.030 (1.000-1.030); Urobilinogen Urine Negative (Negative)
[2021-09-19 19:50] LABS: Epithelial Cell Urine 0-5 /lpf (0-5)
[2021-09-19 19:51] LABS: Bacteria Urine 3+ (Negative); RBC Urine >30 /hpf (0-4)
[2021-09-19] MEDS ORDERED: cefTRIAXone SODIUM 2,000 MG/70 ML BAG IV STA (20:07)
--- NOTE | 2021-09-19 20:55 | CT Scan Report ---
CT OF THE ABDOMEN AND PELVIS WITHOUT CONTRAST CLINICAL HISTORY: Left flank pain. COMPARISON STUDY: CT of the chest and abdomen February 08, 2010. TECHNIQUE: Axial images of the abdomen and pelvis were obtained without IV contrast. Images were revi ewed in the axial, sagittal, and coronal planes. Automated exposure control was utilized for the tyrese dy. A dose lowering technique was utilized adhering to the principles of ALARA. FINDINGS: A 6 mm right lower lobe pulmonary nodules unchanged since CT of February 09, 2020. This is shannan gn given stability. Pacer leads are partially imaged. There is cardiomegaly. No pneumatosis, free air or portal venous gas is present. Unenhanced images of the liver, spleen, adrenal glands and pancreas are unremarkable. There is no biliary or pancreatic ductal dilatation. There is no hydronephrosis. N ote is made of a large acute left renal subcapsular hematoma. This measures 4.4 cm in thickness and h as significant mass effect upon the kidney. There is also moderate hemorrhage within and adjacent to the left Gerota's fascia. Multiple left renal lesions are noted. These are suboptimally assessed on t his unenhanced exam. Several measure water attenuation and favor cysts. No urinary calculi are identi fied. There is no evidence for a bowel obstruction. No acute fracture or suspicious lesion is identif ied within visualized skeletal structures. There are fat-containing bilateral inguinal hernias. IMPRESSION: Large acute left renal subcapsular hematoma with moderate hemorrhage within and adjacent to Gerota's fascia. This hematoma has significant mass effect upon the kidney. The etiology for this hemorrhage is not clear and a follow-up MR or CT renal protocol in 3 months to exclude an underlying renal mass is recommended. Findings discussed with Dr. Curtis at time of dictation. ACT 112: Negative or not required by law. Electronically signed by: Bruno Palma M.D. 09/19/2021 8:53 PM
--- NOTE | 2021-09-19 21:21 | Urology Consultation ---
Date of Consultation September 19, 2021 Assessment & Plan (1) Renal hematoma: I discussed with the treating emergency room physician and he is being admitted on the hospitalist service. We recommend proceeding as follows: Avoid any anticoagulants or antiplatelet agents Follow serial hemoglobin and hematocrits every 6 hours Would recommend administering blood transfusion of patient's noted to have a significant drop in his hemoglobin or hematocrit If precipitous drop is noted patient's hemoglobin and hematocrit consideration should be given to transferring patient to a tertiary care center where interventional radiology and embolization is available We will continue following while patient is hospitalized Supervising Physician Co-Signing Physician Notes I have discussed Mr. Cantor's case with Andres Torres PA-C and agree with the above documentation. For now, I would recommend supportive care and close monitoring. Would check CBCs every 6 hours for the first day, then daily if they remain stable. Pain control with Tylenol, narcotics as needed. If he decompensates clinically, would recommend transfer to facility with interventional radiology for potential embolization. He will require repeat CT scan in a couple months to further evaluate the kidney and assess for renal mass, as there is currently no explanation for his bleed. We will also discuss cystoscopy as an outpatient given his history of hematuria. History of Present Illness Reason for Consultation: Subcapsular renal hematoma History of Present Illness This is a 71-year-old male who presented to the emergency department at [facility] secondary to left-sided flank pain that began approximate 3:00 PM today. Patient notes that the pain was initially in his flank area but radiates to the front of his abdomen. Patient denies any dysuria or hematuria at the present time. He denies any nausea vomiting. The patient denies any injury or trauma to this area. He specifically denies any falling episodes. He denies any episodes of coughing or forceful retching. Patient denies taking any anticoagulants but does note that he takes a baby aspirin daily. He did report that approximately a month ago he did have one episode of hematuria where he urinated and noted a blood clot in his urine. He notes that this has not recurred. Patient notes that his current pain did not have any provocative factors and occurred spontaneously. He notes that the pain was palliated by medicines that were administered in the emergency department. Today in the emergency department patient had labs and imaging which independently reviewed. The patient was noted to have a subcapsular hematoma of the left kidney. This measures approximately 4.4 cm in thickness with noted mass-effect upon the kidney. There was also hemorrhage adjacent to Gerota's fascia. Labs include a CBC her white blood cell count was 12.5. His hemoglobin and hematocrit were 13.6 and 40.6 respectively. His most recent hemoglobin available for review was from December 2019 which was a level of 14.1. Platelet count was noted to be normal. Chemistry profile showed sodium and potassium were noted to be normal. His BUN and creatinine were 33 and 1.95. Review of records show the patient's baseline creatinine runs anywhere from 1.2-1.4. Urinalysis was performed which showed the patient had cloudy urine with 3+ blood and was positive for nitrites. Leukocyte esterase was negative. There were 5- 10 white blood cells per high-power field and 3+ bacteria in the urine. At the time of my interview he was resting comfortably in bed and he was in no distress. Allergies Allergy/AdvReac Type Severity Reaction Status Date / Time GENARO-YELLOW SODA Allergy Unknown . Uncoded 09/19/21 19:52 Home Medications Medication Instructions Recorded Confirmed Type aspirin 81 mg tablet,delayed 81 mg PO DAILY 12/29/19 09/19/21 History release lisinopril 5 mg tablet 5 mg PO DAILY 12/29/19 09/19/21 History magnesium oxide 400 mg PO DAILY 12/29/19 09/19/21 History amiodarone 200 mg tablet 200 mg PO BID 02/25/21 09/19/21 History atorvastatin 40 mg tablet 40 mg PO DAILY 02/25/21 09/19/21 History furosemide 40 mg tablet 40 mg PO BID 02/25/21 09/19/21 History sildenafil 100 mg tablet 100 mg PO DAILY PRN 02/25/21 09/19/21 History tramadol 50 mg tablet 50 mg PO Q6H PRN 02/25/21 09/19/21 History acetaminophen 500 mg capsule 1,000 mg PO Q6H PRN cap 05/01/21 09/19/21 History metoprolol succinate 50 mg 200 mg PO DAILY 09/19/21 09/19/21 History tablet,extended release 24 hr Patient History Medical History Diabetes Erectile dysfunction History of placement of internal cardiac defibrillator Myocardial infarction x 3 Obesity Ventricular arrhythmia Surgical History History of cardiac cath Hx of hernia repair Social History Smoking Status: Former smoker Tobacco Type: Smokeless Tobacco (Dip or Chew) Second Hand Exposure: No; Hx Alcohol Use: No Hx Substance Use: No Preferred Language: Lithuanian Communication Ability: Effective Head Of Cytogenetics Required: No Beliefs That Will Affect Care: None marital status: Current Living Situation: Alone current occupational status: retired Feels Safe at Home: Yes during the past year weight has: decreased > 10 lbs Physical Activity Frequency: Does not Exercise Do you think of yourself as: straight/heterosexual Gender Identity: Male Assistive Devices: Glasses Review of Systems Constitutional: no fever and no chills Eyes: no diplopia Ear, Nose, Mouth, Throat: no ear pain Respiratory: no cough and no dyspnea Cardiovascular: no chest pain Gastrointestinal: + abdominal pain (Radiating from left flank); no nausea and no vomiting Genitourinary: + as per Subjective / HPI Musculoskeletal: + back pain (Left flank) Integumentary: no rash Neurologic: no localized weakness Physical Exam Constitutional: well developed, well nourished and + obese; no acute distress Eyes: Wears glasses ENMT: Ears: no hearing impairment and no external ear abnormality Neck: trachea midline Respiratory: normal respiratory effort; no respiratory distress and no labored breathing Cardiovascular: Rate/Rhythm: regular rate and regular rhythm Gastrointestinal (Abdomen): Abdomen is rotund but soft. Bowel sounds are present. There is no pain with palpation. There is no rebound tenderness or guarding. Musculoskeletal: 1-2+ lower extremity edema noted bilaterally. No calf tenderness. Skin: no rashes Neurologic: moves all extremities Psychiatric: A+Ox3, euthymic affect Genitourinary: no CVA tenderness Results & Data ([facility] [place]) Vital Signs (Past 12 Hours) Vital Signs Temp Pulse Pulse Resp BP BP Pulse Ox 09/19/21 19:39 88 20 119/52 L 94 09/19/21 17:44 36.5 C 89 22 136/67 91 PG Care Time/CCT Total # of Minutes Spent Total Time Spent with Patient: Total time spent is greater than 50% in coordination of care (as documented) at patient's floor/unit and/or counseling patient: Coding Level of Care Code 48099 Inpt Consult Level 5 Diagnoses Renal hematoma S37.012A Encounter type: initial encounter Laterality: left (1) Renal hematoma Encounter type: initial encounter Laterality: left Qualified Code(s): S37.012A - Minor contusion of left kidney, initial encounter
[2021-09-19] MEDS ORDERED: CEFEPIME 2,000 MG/20 ML VIAL IV STA (21:44)
[2021-09-19 22:12] LABS: Bilirubin Direct 0.1 mg/dl (0-0.2); Bilirubin,Total 0.6 mg/dl (0.2-1.0); Total Protein 7.2 gm/dl (6.0-8.3)
[2021-09-19 22:46] LABS: Ferritin 245.8 ng/ml (8-388)
[2021-09-19] MEDS: AMIODARONE 200 MG TAB PO SCH (22:47)
[2021-09-19 22:55] LABS: Hematocrit (blood only) 37.8 % (42-52); Hemoglobin 12.4 g/dL (14.0-18.0); Reticulocyte % 1.8 % (0.5-2.0); Reticulocytes # 0.07 10^6/uL (0.02-0.10)
[2021-09-19] MEDS ORDERED: SODIUM CHLORIDE 0.9% 1000ML 1,000 ML IV ONE (23:06)
[2021-09-19] MEDS ORDERED: HYDROmorphone INJ 0.5 MG/0.5 ML SYR IV PRN (23:06)
--- NOTE | 2021-09-19 23:11 | History & Physical Report ---
Date of Service September 19, 2021 Assessment & Plan (1) Renal hematoma: Plan: Complicated UTI, patient not septic for now New onset anemia secondary to renal hematoma hx recurrent ventricular tachycardia Sinus bradycardia status post ICD chronic systolic heart failure secondary to idiopathic cardiomyopathy (EF 35 to 40%, TTE 2018), euvolemic to dry Hypertension, stable Recurrent VT ARF on CRI MICHAEL, CPAP intolerance DM2, new diagnosis, outpatient hemoglobin A1c of 6.29 January 2021 past tobacco abuse [facility] Trend H&H, transfuse PRBC if hemoglobin less than 8 and or for symptomatic anemia Appropriate to hold home aspirin for now. Urology consult Re: Left renal hematoma (ER provider already in touch with Dr. Estrada who recommends conservative management for now. May need tertiary center transfer to facilitate embolization if with significant hemoglobin drop from baseline.) Follow urine CS, Cefepime Monitor creatinine response to IVF, appropriate to hold home MÓNICA inhibitor and diuretic Rx until creatinine back to baseline ISS BG goal 1 10-1 40, carb count coverage, update hemoglobin A1c, DM education DVT prophylaxis. SCDs Re: Renal hematoma Full code Text document was generated using Keukey voice recognition software. It may contain grammatical or spelling errors. Kindly contact undersigned for clarification of any documentation item in question. History of Present Illness Chief Complaint: Flank pain, hematuria Primary Care Provider: Dr. Castellon History obtained from patient and records. Medical history significant for chronic systolic heart failure secondary to idiopathic cardiomyopathy (EF 35 to 40%, TTE 2019), history VT, sinus bradycardia status post ICD, HTN, CRI (baseline creatinine 1.7 from 2020), MICHAEL (CPAP intolerant), prediabetes, chronic venous insufficiency, past tobacco abuse. Last confinement December 2019 for recurrent VT. Patient developed bradycardia during confinement. Underwent biventricular ICD placement. Patient transferred to [place] for recurrent episodes of V. tach. 1 day history of achy left flank pain symptoms without fever, chills. No nausea, no vomiting. Patient also noted hematuria symptoms. No chest pain, no S OB. No prior episodes. No recollection of recent trauma. Ceftriaxone given at the ER for UTI. 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 Uncoded 09/19/21 19:52 Home Medications Medication Instructions Recorded Confirmed Type aspirin 81 mg tablet,delayed 81 mg PO DAILY 12/29/19 09/19/21 History release lisinopril 5 mg tablet 5 mg PO DAILY 12/29/19 09/19/21 History magnesium oxide 400 mg PO DAILY 12/29/19 09/19/21 History amiodarone 200 mg tablet 200 mg PO BID 02/25/21 09/19/21 History atorvastatin 40 mg tablet 40 mg PO DAILY 02/25/21 09/19/21 History furosemide 40 mg tablet 40 mg PO BID 02/25/21 09/19/21 History sildenafil 100 mg tablet 100 mg PO DAILY PRN 02/25/21 09/19/21 History tramadol 50 mg tablet 50 mg PO Q6H PRN 02/25/21 09/19/21 History acetaminophen 500 mg capsule 1,000 mg PO Q6H PRN cap 05/01/21 09/19/21 History metoprolol succinate 50 mg 200 mg PO DAILY 09/19/21 09/19/21 History tablet,extended release 24 hr Past Med/Surg History Medical History Diabetes Erectile dysfunction History of placement of internal cardiac defibrillator Myocardial infarction x 3 Obesity Ventricular arrhythmia Surgical History History of cardiac cath Hx of hernia repair Social History Smoking Status: Former smoker Tobacco Type: Smokeless Tobacco (Dip or Chew) Second Hand Exposure: No; Do You Dip or Chew Tobacco: Yes; Tobacco Cessation Education Requested by Patient: No Hx Alcohol Use: No Hx Substance Use: No Preferred Language: Turkmen Communication Ability: Effective Transcribing Machine Operator Required: No Beliefs That Will Affect Care: None marital status: Current Living Situation: Alone current occupational status: retired Other Information That Helps Us Care for You: No Feels Safe at Home: Yes Safety Concerns: Feels Safe At This Time during the past year weight has: decreased > 10 lbs Physical Activity Frequency: Does not Exercise Do you think of yourself as: straight/heterosexual Gender Identity: Male Assistive Devices: Cane, Denture - Upper and Glasses Review of Systems Review of Systems: As per HPI, all 10 systems reviewed, all other ROS negative Physical Exam 2 Physical Exam: GENERAL: Comfortable, morbidly obese, no respiratory distress SKIN: Pallor , warm HEENT: Alopecia, bespectacled, pale palpebral conjunctivae, no ptosis, dry buccal mucosa NECK : Supple, short neck, no tenderness CHEST : Decreased breath sounds , no tenderness HEART : RRR , no obvious murmurs ABDOMEN: Some distention, nontender BACK : Minimal left flank tenderness EXTREMITIES : Minimal LE swelling, no LE tenderness, no other conspicuous deformities noted NEUROLOGIC : Coherent, no facial asymmetry, mild hearing impairment, no other gross focality Results & Data Results & Data ([facility]) Vital Signs (Past 12 Hours) Vital Signs Temp Pulse Pulse Resp BP BP Pulse Ox 09/19/21 22:31 96 H 14 127/104 H 95 09/19/21 22:30 78 18 09/19/21 22:00 60 13 102/69 96 09/19/21 21:32 64 15 138/71 93 09/19/21 21:30 68 13 94 09/19/21 21:00 60 60 15 109/75 109/75 84 L 09/19/21 20:38 60 14 90 09/19/21 19:39 88 20 119/52 L 94 09/19/21 17:44 36.5 C 89 22 136/67 91 Laboratory Results Laboratory Results WBC 12.54 K/uL (4.8-10.8) H 09/19/21 18:30 RBC 4.15 M/uL (4.7-6.1) L 09/19/21 18:30 Hgb 12.4 g/dL (14.0-18.0) L 09/19/21 22:07 Hct 37.8 % (42-52) L 09/19/21 22:07 MCV 97.8 fL (80-100) 09/19/21 18:30 MCH 32.8 pg (25-34) 09/19/21 18:30 MCHC 33.5 g/dL (32-36) 09/19/21 18:30 RDW Std Deviation 47.3 fL (36.4-46.3) H 09/19/21 18:30 RDW Coeff of Adriana 13.2 % (11.5-14.5) 09/19/21 18:30 Plt Count 222 K/uL (130-400) 09/19/21 18:30 MPV 11.5 fL (7.4-10.4) H 09/19/21 18:30 Reticulocyte % (Auto) 1.8 % (0.5-2.0) 09/19/21 22:07 Reticulocyte # 0.07 10^6/uL (0.02-0.10) 09/19/21 22:07 Sodium 138 mmol/L (136-145) 09/19/21 18:30 Potassium 4.5 mmol/L (3.5-5.1) 09/19/21 18:30 Chloride 100 mmol/L (98-107) 09/19/21 18:30 Carbon Dioxide 31 mmol/L (21-32) 09/19/21 18:30 Anion Gap 7 (3-11) 09/19/21 18:30 BUN 33 mg/dl (6-23) H 09/19/21 18:30 Creatinine 1.95 mg/dl (0.6-1.4) H 09/19/21 18:30 Est Cr Clr Drug Dosing 53.4 ml/min 09/19/21 18:30 Est GFR ( Amer) 39.2 ml/min 09/19/21 18:30 Est GFR (Non-Af Amer) 33.9 ml/min 09/19/21 18:30 BUN/Creatinine Ratio 16.9 (10-20) 09/19/21 18:30 Glucose 146 mg/dl (70-99(Fasting)) H 09/19/21 18:30 Calcium 9.0 mg/dl (8.5-10.1) 09/19/21 18:30 Magnesium 2.0 mg/dl (1.7-2.4) 09/19/21 18:30 Iron 48 mcg/dl (35-175) 09/19/21 18:30 Transferrin 198 mg/dl (200-360) L 09/19/21 18:30 Ferritin 245.8 ng/ml (8-388) 09/19/21 18:30 Total Bilirubin 0.6 mg/dl (0.2-1.0) 09/19/21 18:30 Direct Bilirubin 0.1 mg/dl (0-0.2) 09/19/21 18:30 AST 16 U/L (13-39) 09/19/21 18:30 ALT 10 U/L (7-52) 09/19/21 18:30 Alkaline Phosphatase 102 U/L (34-104) 09/19/21 18:30 Total Protein 7.2 gm/dl (6.0-8.3) 09/19/21 18: Albumin 4.0 gm/dl (3.4-5.0) 09/19/21 18:30 Urine Color Red 09/19/21 19: Urine Appearance Cloudy (Clear) A 09/19/21: Urine pH 5.0 (4.5-7.5) 09/19/21: Ur Specific [place] >= 1.030 (1.000-1.030) 09/19/21: Urine Protein 3+ (Negative) H 09/19/21: Urine Glucose (UA) Trace (Negative) H 09/19/21: Urine Ketones Trace (Negative) H 09/19/21: Urine Blood 3+ (Negative) H 09/19/21: Urine Nitrite Positive (Negative) A 09/19/21: Urine Bilirubin 2+ (Negative) H 09/19/21: Urine Urobilinogen Negative (Negative) 09/19/21: Ur Leukocyte Esterase Negative (Negative) 09/19/21: Urine RBC >30 /hpf (0-4) H 09/19/21: Urine WBC 5-10 /hpf (0-5) H 09/19/21 19:22 Ur Epithelial Cells 0-5 /lpf (0-5) 09/19/21: Urine Bacteria 3+ (Negative) H 09/19/21: Impressions Abdomen/Pelvis CT 09/19/21 19: CT OF THE ABDOMEN AND PELVIS WITHOUT CONTRAST CLINICAL HISTORY: Left flank pain. COMPARISON STUDY: CT of the chest and abdomen February 08, 2010. TECHNIQUE: Axial images of the abdomen and pelvis were obtained without IV contrast. Images were reviewed in the axial, sagittal, and coronal planes. Automated exposure control was utilized for the study. A dose lowering technique was utilized adhering to the principles of ALARA. FINDINGS: A 6 mm right lower lobe pulmonary nodules unchanged since CT of February 09, 2020. This is benign given stability. Pacer leads are partially imaged. There is cardiomegaly. No pneumatosis, free air or portal venous gas is present. Unenhanced images of the liver, spleen, adrenal glands and pancreas are unremarkable. There is no biliary or pancreatic ductal dilatation. There is no hydronephrosis. Note is made of a large acute left renal subcapsular hematoma. This measures 4.4 cm in thickness and has significant mass effect upon the kidney. There is also moderate hemorrhage within and adjacent to the left Joni sammy's fascia. Multiple left renal lesions are noted. These are suboptimally assessed on this unenhanced exam. Several measure water attenuation and favor cysts. No urinary calculi are identified. There is no evidence for a bowel obstruction. No acute fracture or suspicious lesion is identified within visualized skeletal structures. There are fat-containing bilateral inguinal hernias. IMPRESSION: Large acute left renal subcapsular hematoma with moderate hemorrhage within and adjacent to Gerota's fascia. This hematoma has significant mass effect upon the kidney. The etiology for this hemorrhage is not clear and a follow-up MR or CT renal protocol in 3 months to exclude an underlying renal mass is recommended. Findings discussed with Dr. Curtis at time of dictation. ACT 112: Negative or not required by law. Electronically signed by: Bruno Palma M.D. 09/19/2021 8:53 PM Diagnostic Findings Chest x-ray as per my interpretation atelectasis Code Status & VTE Plan VTE Prophylaxis Plan VTE Prophylaxis will be ordered: Yes (1) Renal hematoma Encounter type: initial encounter Laterality: left Qualified Code(s): S37.012A - Minor contusion of left kidney, initial encounter
[2021-09-19 23:13] LABS: INR 1.1 (0.9-1.1); Prothrombin Time 10.7 Seconds (9.0-12.0)
[2021-09-19 23:39] LABS: Folate (Folic Acid) 7.41 ng/ml (>5.38)
[2021-09-20] MEDS ORDERED: GLUCOSE 40% GEL 15 GM TUBE PO PRN (02:39)
[2021-09-20] MEDS ORDERED: traMADol HCL 50 MG TABLET PO PRN (02:39)
[2021-09-20] MEDS ORDERED: CARBOHYDRATES FOR HYPOGLYCEMIA PO PRN (02:39)
[2021-09-20] MEDS ORDERED: GLUCOSE 10 TABS/TUBE PO PRN (02:39)
[2021-09-20] MEDS ORDERED: GLUCAGON FOR INJ 1 MG VIAL SQ PRN (02:39)
[2021-09-20] MEDS ORDERED: DEXTROSE 50% 50 ML SYRINGE IV PRN (02:39)
[2021-09-20] MEDS ORDERED: PROMETHAZINE HCL 12.5 MG in SODIUM CHLORIDE 0.9% 50 ML IV PRN (02:39)
[2021-09-20] MEDS: INSULIN ASPART PER UNIT SC SCH ×5 (04:16→20:42)
[2021-09-20] MEDS: CEFEPIME 1,000 MG in SYRINGE 0 ML IV SCH ×2 (05:43→17:31)
[2021-09-20 06:59] LABS: Estimated Average Glucose 131 mg/dl; Hemoglobin A1C 6.2 % (4.5-5.6)
[2021-09-20 07:00] LABS: Basophils # (auto) 0.02 K/uL (0-0.2); Basophils % (auto) 0.2 %; Eosinophils # (auto) 0.05 K/uL (0-0.5); Eosinophils % (auto) 0.5 %; Hematocrit (blood only) 35.1 % (42-52); Hemoglobin 11.2 g/dL (14.0-18.0); Immature Granulocytes # (auto) 0.04 K/uL (0.00-0.02); Immature Granulocytes % (auto) 0.4 %; Lymphocytes # (auto) 1.48 K/uL (1.2-3.4); Mean Corpuscular Hemoglobin 31.7 pg (25-34); Mean Corpuscular Hgb Conc 31.9 g/dL (32-36); Mean Corpuscular Volume 99.4 fL (80-100); Mean Platelet Volume 11.5 fL (7.4-10.4); Monocytes # (auto) 1.26 K/uL (0.11-0.59); Monocytes % (auto) 13.6 %; Neutrophils % (auto) 69.3 %; Platelet Count 185 K/uL (130-400); RDW Coefficient of Variation 13.7 % (11.5-14.5); RDW Standard Deviation 49.1 fL (36.4-46.3); Red Blood Count 3.53 M/uL (4.7-6.1); White Blood Count 9.25 K/uL (4.8-10.8)
[2021-09-20 07:24] LABS: Anion Gap 8 (3-11); BUN Creatinine Ratio 17.4 (10-20); Blood Urea Nitrogen 38 mg/dl (6-23); Calcium 8.3 mg/dl (8.5-10.1); Carbon Dioxide 28 mmol/L (21-32); Chloride 100 mmol/L (98-107); Creatinine Clr Calc Pharmacy 47.7 ml/min; Est GFR (African American) 34.3 ml/min; Est GFR (Non-African American) 29.6 ml/min; Glucose 106 mg/dl (70-99(Fasting)); Sodium 136 mmol/L (136-145)
--- NOTE | 2021-09-20 07:35 | XRay Report ---
XR chest 1V portable HISTORY: 71 years-old Male renal failure acute renal failure COMPARISON: Chest radiograph 12/31/2019 TECHNIQUE: Portable AP view of the chest FINDINGS: Cardiac silhouette is enlarged. Left subclavian pacer/AICD. Mild right hemidiaphragmatic elevation. N o pneumothorax, pleural effusion, airspace consolidation or overt pulmonary edema. Degenerative flores es of the shoulders and spine. IMPRESSION: Cardiomegaly without acute process. ACT 112: Negative or not required by law. The above report was generated using voice recognition software. It may contain grammatical, syntax o r spelling errors. Electronically signed by: Ancelmo Jones M.D. 09/20/2021 7:34 AM
[2021-09-20] MEDS: AMIODARONE 200 MG TAB PO SCH ×2 (07:47→21:10)
[2021-09-20] MEDS: METOPROLOL SUCC 50MG EXT REL TAB PO SCH (07:48)
[2021-09-20] MEDS: ATORVASTATIN 40 MG TAB PO SCH (07:48)
[2021-09-20] MEDS ORDERED: CEFEPIME 2,000 MG in SYRINGE 0 ML IV SCH (08:00)
--- NOTE | 2021-09-20 09:00 | Urology Progress Note ---
Date of Service September 20, 2021 Assessment & Plan (1) Acute left flank pain: Plan: Pain is well controlled on current regimen. Would be reasonable to try to get him onto oral pain medications. (2) Hematuria: Plan: He reports that hematuria is clearing. He has been able to empty his bladder well. If this becomes an issue with clots in the urine, I would recommend bladder scanning and and catheter can be placed if he develops urinary retention. We discussed that he will need a hematuria work-up in the future, including a dedicated CT scan and cystoscopy as well as urine cytology. This can be performed as an outpatient. (3) Renal hematoma: Plan: Subcapsular hematoma demonstrated on recent CT scan. Currently his pain is well controlled. His blood pressure has been somewhat labile, although was in the 110s/60s when I saw him this morning. Hemoglobin has been trending down over the last 12 hours, but some of this is likely dilutional as he was dehydrated and has been receiving fluids. For now, would recommend continuing to check H&H every 6 hours. If H&H continue to trend downward or if blood pressure is per sistently low, I would recommend transfer to facility with interventional radiology for possible embolization. We reviewed that once he is stabilized from this acute bleed, we will need to evaluate the kidneys further to assess for an underlying cause. This will likely require dedicated CT scan in a couple months. (4) Acute UTI: Plan: Urinalysis suspicious for infection. He remains covered on cefepime. Urine culture is pending. Would be reasonable to narrow antibiotic coverage once culture and sensitivities are available. Admission and Anticipated Discharge Date Admission Date: September 19, 2021 Subjective Reports the pain is well controlled with medications Denies any lightheadedness, denies any tachycardia or palpitations Reports that his urine is clearing up. 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 Has not been eating, reports that he was dehydrated at home Hb trending down - 13.6 last night, 12.4 overnight, 11.2 this morning Cr fairly stable from yesterday (1.95 --> 2.18), but up from 2 years ago (1.43). Review of Systems Constitutional: Denies fevers and chills, denies lightheadedness Gastrointestinal: Abdominal pain Physical Exam Constitutional: Well-appearing, NAD Gastrointestinal (Abdomen): Protuberant, nondistended, no focal tenderness appreciated to palpation. No ecchymosis of the skin. Results & Data ([facility]) Vital Signs (Past 12 Hours) Vital Signs Temp Pulse Pulse Pulse Resp BP BP 09/20/21 07:49 36.9 C 60 20 83/47 L 09/20/21 07:44 109/65 09/20/21 02:42 36.6 C 86 20 122/66 09/20/21 02:41 36.6 C 86 20 122/66 09/20/21 01:30 60 15 104/64 09/20/21 01:00 60 16 101/57 L 09/20/21 00:30 60 12 105/54 L 09/20/21 00:00 59 L 12 108/60 09/19/21 23:30 15 107/62 09/19/21 23:01 14 111/68 09/19/21 23:00 60 14 09/19/21 22:31 96 H 14 127/104 H 09/19/21 22:30 78 18 09/19/21 22:00 60 13 102/69 09/19/21 21:32 64 15 138/71 09/19/21 21:30 68 13 09/19/21 21:00 60 60 15 109/75 109/75 Pulse Ox 09/20/21 07:49 93 09/20/21 07:44 09/20/21 02:42 100 09/20/21 02:41 100 09/20/21 01:30 98 09/20/21 01:00 94 09/20/21 00:30 09/20/21 00:00 09/19/21 23:30 09/19/21 23:01 09/19/21 23:00 09/19/21 22:31 95 09/19/21 22:30 09/19/21 22:00 96 09/19/21 21:32 93 09/19/21 21:30 94 09/19/21 21:00 84 L PG Care Time/CCT Total # of Minutes Spent Total Time Spent with Patient: Total time spent is greater than 50% in coordination of care (as documented) at patient's floor/unit and/or counseling patient: Coding Level of Care Code 02642 Subseq Hosp Care Lvl 2 Diagnoses Acute left flank pain R10.9 Hematuria R31.0 Hematuria type: gross Renal hematoma S37.012A Encounter type: initial encounter Laterality: left Acute UTI N39.0 (1) Hematuria Hematuria type: gross Qualified Code(s): R31.0 - Gross hematuria (2) Renal hematoma Encounter type: initial encounter Laterality: left Qualified Code(s): S37.012A - Minor contusion of left kidney, initial encounter
[2021-09-20 11:55] LABS: Hematocrit (blood only) 34.6 % (42-52); Hemoglobin 11.2 g/dL (14.0-18.0)
--- NOTE | 2021-09-20 18:01 | Hospitalist Progress Note ---
Date of Service September 20, 2021 Assessment & Plan (1) Hematuria: (2) Acute UTI: (3) Renal hematoma: Plan: 71-year-old man with PMH of chronic systolic heart failure 2/2 idiopathic CM [EF 35 to 40%, TTE 2018], V. tach, sinus bradycardia status post ICD, HTN, CRI [ baseline creatinine 1.7 from 2020], MICHAEL [CPAP intolerant], prediabetes, chronic venous insufficiency and past tobacco abuse presented to our ED 09/19 with 1 day history of achy left flank pain symptoms without fever chills or nausea or vomiting. Patient noted hematuria. Is being managed for the following: #. Renal hematoma #. Hematuria #. Complicated UTI #. 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 Urology evaluated: Conservative management, hematuria work-up in future includ ing dedicated CT scan and cystoscopy. Follow-up with urology as an outpatient. If hemodynamically unstable or hemoglobin dropping or pain is not controlled, transfer to tertiary care center [IR for possible embolization] for urology. Admitting CTAP: Large left renal hematoma. Urinalysis at presentation suggestive of UTI, follow-up with urine culture Patient's blood pressure fairly controlled, hemodynamically stable, H&H is stable at 11.2 so far, every 6 H&H. Vitals every 4 hours, H&H every 6 Hours, pain control supportive management, IV fluids. Continue with cefepime 09/20. #. THANH on CKD stage II Baseline creatinine 1.7 Admitting creatinine 1.95, uptrending Continue with IV fluids, monitor BMP daily. #. Other chronic medical conditions: History of V. tach, sinus bradycardia status post ICD, chronic systolic heart failure secondary to idiopathic CM, hypertension Resume/continue with home meds as and when appropriate. Hold aspirin, renal hematoma. #. DM new diagnosis, A1c of 6.29 January 2021 Patient was prediabetic for 10 years, managed with diet only A1c this admission 6.2, good control. 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 DVT prophylaxis. SCDs Re: Renal hematoma Full code Admission and Anticipated Discharge Date Admission Date: September 19, 2021 Results & Data Results & Data ([facility]) Vital Signs (Past 12 Hours) Vital Signs Temp Pulse Resp BP Pulse Ox 09/20/21 15:24 36.7 C 61 20 92/58 L 94 09/20/21 07:49 36.9 C 60 20 83/47 L 93 09/20/21 07:44 109/65 (1) Hematuria Hematuria type: gross Qualified Code(s): R31.0 - Gross hematuria (2) Renal hematoma Encounter type: initial encounter Laterality: left Qualified Code(s): S37.012A - Minor contusion of left kidney, initial encounter
[2021-09-20] MEDS: SODIUM CHLORIDE 0.9% 1000ML 1,000 ML IV SCH (18:09)
[2021-09-20 18:22] LABS: Hematocrit (blood only) 37.7 % (42-52); Hemoglobin 11.9 g/dL (14.0-18.0)
[2021-09-21 00:18] LABS: Hematocrit (blood only) 31.8 % (42-52); Hemoglobin 10.1 g/dL (14.0-18.0)
[2021-09-21] MEDS: CEFEPIME 1,000 MG in SYRINGE 0 ML IV SCH ×2 (06:02→18:19)
[2021-09-21] MEDS: SODIUM CHLORIDE 0.9% 1000ML 1,000 ML IV SCH ×2 (07:27→20:36)
[2021-09-21] MEDS: AMIODARONE 200 MG TAB PO SCH ×2 (08:38→20:36)
[2021-09-21] MEDS: ATORVASTATIN 40 MG TAB PO SCH (08:39)
[2021-09-21] MEDS: INSULIN ASPART PER UNIT SC SCH ×4 (08:45→21:07)
[2021-09-21] MEDS: METOPROLOL SUCC 50MG EXT REL TAB PO SCH (10:39)
[2021-09-21 11:12] LABS: Hematocrit (blood only) 30.8 % (42-52); Hemoglobin 9.8 g/dL (14.0-18.0); Mean Corpuscular Hemoglobin 31.7 pg (25-34); Mean Corpuscular Hgb Conc 31.8 g/dL (32-36); Mean Corpuscular Volume 99.7 fL (80-100); Mean Platelet Volume 11.2 fL (7.4-10.4); Platelet Count 145 K/uL (130-400); RDW Coefficient of Variation 13.9 % (11.5-14.5); RDW Standard Deviation 49.8 fL (36.4-46.3); Red Blood Count 3.09 M/uL (4.7-6.1)
[2021-09-21 11:20] LABS: Hematocrit (blood only) 30.9 % (42-52); Hemoglobin 9.9 g/dL (14.0-18.0)
[2021-09-21 11:30] LABS: BUN Creatinine Ratio 16.2 (10-20); Calcium 7.9 mg/dl (8.5-10.1); Creatinine Clr Calc Pharmacy 37.5 ml/min; Est GFR (African American) 25.7 ml/min; Est GFR (Non-African American) 22.2 ml/min; Phosphorus 3.4 mg/dl (2.5-4.9); Potassium 4.7 mmol/L (3.5-5.1)
[2021-09-21] MEDS: ACETAMINOPHEN 325 MG TAB PO PRN (16:02)
--- NOTE | 2021-09-21 17:24 | Hospitalist Progress Note ---
Date of Service September 21, 2021 Assessment & Plan (1) Hematuria: (2) Acute UTI: (3) Renal hematoma: Plan: 71-year-old man with PMH of chronic systolic heart failure 2/2 idiopathic CM [EF 35 to 40%, TTE 2018], V. tach, sinus bradycardia status post ICD, HTN, CRI [ baseline creatinine 1.7 from 2020], MICHAEL [CPAP intolerant], prediabetes, chronic venous insufficiency and past tobacco abuse presented to our ED 09/19 with 1 day history of achy left flank pain symptoms without fever chills or nausea or vomiting. Patient noted hematuria. Is being managed for the following: #. Renal hematoma #. Hematuria #. Complicated UTI #. 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 Urology evaluated: Conservative management, hematuria work-up in future includ ing dedicated CT scan and cystoscopy. Follow-up with urology as an outpatient. If hemodynamically unstable or hemoglobin dropping or pain is not controlled, transfer to tertiary care center [IR for possible embolization] for urology. Admitting CTAP: Large left renal hematoma. Urinalysis at presentation suggestive of UTI, follow-up with urine culture --> no growth. Patient's blood pressure fairly controlled, hemodynamically stable, H&H is stable around 10, every 6 hr H&H. Vitals every 4 hours, H&H every 6 Hours, pain control supportive management, IV fluids. Continue with cefepime 09/20. #. THANH on CKD stage II Baseline creatinine 1.7 Admitting creatinine 1.95, uptrending despite IVF If still uptrending bren, consider nephro consult. Continue with IV fluids, monitor BMP daily. #. Other chronic medical conditions: History of V. tach, sinus bradycardia status post ICD, chronic systolic heart failure secondary to idiopathic CM, hyp ertension Resume/continue with home meds as and when appropriate. Hold aspirin, renal hematoma. #. DM new diagnosis, A1c of 6.29 January 2021 Patient was prediabetic for 10 years, managed with diet only A1c this admission 6.2, good control. 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 DVT prophylaxis. SCDs Re: Renal hematoma Full code Admission and Anticipated Discharge Date Admission Date: September 19, 2021 Subjective Patient was seen and examined at bedside as a follow-up of left renal hematoma and hematuria along with complicated UTI. Patient was lying in bed, sleeping, on room air, NAD, was irritated and angry upon waking up for examination. Denies any symptoms overnight. Denies any headache or dizziness. Denies any pain in the left belly. Denies any blood in the urine. Patient denies fever/dizziness/chills/sore throat/chest pain/palpitation/other review of symptoms. Patient reports eating okay. Physical Exam Physical Exam: GENERAL: Alert and oriented x3. NAD, on RA. Morbidly obese HEENT: No pallor, no icterus. Pupils equal, round and reactive to light. Oral mucosa moist. NECK: No JVD, no neck masses. HEART: S1 and S2 heard. Regular rate and rhythm. No murmur, no gallop. RESPIRATORY SYSTEM: Normal AP diameter. No accessory muscle use. No wheezing, no crackles. ABDOMEN: Soft, bowel sounds present, nontender, no distention. CENTRAL NERVOUS SYSTEM: No facial droop. Speech is clear. Obeys simple commands. Moves extremities. EXTREMITIES: Trace BLE edema w/ chronic skin changes, no erythema seen. Results & Data Results & Data ([facility]) Vital Signs (Past 12 Hours) Vital Signs Temp Pulse Resp BP BP Pulse Ox 09/21/21 16:21 36.9 C 60 18 85/51 L 91 09/21/21 10:39 89 115/71 09/21/21 07:43 37.0 C 96 H 18 97/59 L 96 (1) Hematuria Hematuria type: gross Qualified Code(s): R31.0 - Gross hematuria (2) Renal hematoma Encounter type: initial encounter Laterality: left Qualified Code(s): S37.012A - Minor contusion of left kidney, initial encounter
[2021-09-21 18:43] LABS: Hematocrit (blood only) 30.5 % (42-52); Hemoglobin 9.9 g/dL (14.0-18.0)
[2021-09-21 23:01] LABS: Hematocrit (blood only) 29.8 % (42-52); Hemoglobin 9.7 g/dL (14.0-18.0)
[2021-09-22] MEDS: CEFEPIME 1,000 MG in SYRINGE 0 ML IV SCH ×2 (05:29→17:38)
[2021-09-22 06:49] LABS: Hematocrit (blood only) 29.6 % (42-52); Hemoglobin 9.5 g/dL (14.0-18.0); Mean Corpuscular Hemoglobin 31.7 pg (25-34); Mean Corpuscular Hgb Conc 32.1 g/dL (32-36); Mean Corpuscular Volume 98.7 fL (80-100); Mean Platelet Volume 11.5 fL (7.4-10.4); Platelet Count 142 K/uL (130-400); RDW Coefficient of Variation 13.6 % (11.5-14.5); RDW Standard Deviation 49.3 fL (36.4-46.3); White Blood Count 7.83 K/uL (4.8-10.8)
[2021-09-22 07:12] LABS: BUN Creatinine Ratio 18.4 (10-20); Calcium 7.7 mg/dl (8.5-10.1); Creatinine Clr Calc Pharmacy 44.4 ml/min; Est GFR (African American) 31.5 ml/min; Est GFR (Non-African American) 27.2 ml/min; Potassium 4.6 mmol/L (3.5-5.1)
[2021-09-22] MEDS: INSULIN ASPART PER UNIT SC SCH ×4 (08:13→21:11)
[2021-09-22] MEDS: METOPROLOL SUCC 50MG EXT REL TAB PO SCH (08:37)
[2021-09-22] MEDS: AMIODARONE 200 MG TAB PO SCH ×2 (08:37→21:10)
[2021-09-22] MEDS: ATORVASTATIN 40 MG TAB PO SCH (08:37)
--- NOTE | 2021-09-22 09:09 | Urology Progress Note ---
Date of Service September 22, 2021 Assessment & Plan (1) Acute left flank pain: (2) Hematuria: (3) Renal hematoma: (4) Acute UTI: Plan: Discussed findings with patient. Discussed next steps in management. Conservative measures is optimal plan as long as BP and Hb stablize and do not have considerable drop. If worsening or major issues would likely need selective embolization. Discussed with hospitalist team. Will need repeat imaging in next few days and with small drop in hb can order today. Ideally with contrast though patient does have THANH, likely due to compression of kidney and possible some obstructive component. Initial imaging shows considerable compression of kidney. Will likely be a number of months to completely resolve once patient out of acute phase. Due to compression will be at risk for BP related issues due to renin and possibility of [facility] in prison. Will likely need nephrology establishment and outpatient monitoring. Monitor. May need transfusion if Hb drops suddenly. If any changes on imaging, problems, concerns, or sudden changes in vitals or labs would recommend assessment by vascular and supportive care. Admission and Anticipated Discharge Date Admission Date: September 19, 2021 Subjective Patient admitted with spontaneous renal bleed and discomfort. BP had initially been high but has been low normal. Hb has been trending down. Admitted with supportive care and conservative management with monitoring. Patient is afebrile. Has been undergoing supprovtive conservative therapy with oral medications, IV medications, IV fluids, and oral intake. Is doing subjectively better without considerable increase in pain or major issues. Has not developed severe vomiting or other issues. Has not experienced fever or chills. Has been tolerating oral medications. Is tolerating fluids. Has noticed some frequency and urgency and having some bowel function return. Has not had new/changing/severe pain in the back and flank. No severe episodes or major changes. Review of Systems Review of Systems: All systems reviewed & are unremarkable except as noted in HPI & below Physical Exam Physical Exam: General: Alert in no acute distress. Obese HEENT: Normocephalic Atraumatic. Inspection normal. Cranial Nerves 2-12 Grossly intact. Normal inspection of face. Normal inspection of neck. Psychologic: Normal affect. Respiratory: Nonlabored. No use of accessory muscles. No tachypnea or dyspnea. Cardiovascular: No tachycardia Skin: Val[place] and Dry. No rashes or visible lesions. Abdomen: No rebound or guarding. Results & Data ([facility]) Vital Signs (Past 12 Hours) Vital Signs Temp Pulse Resp BP Pulse Ox 09/22/21 08:38 66 09/22/21 07:39 37.0 C 59 L 18 111/67 90 09/21/21 23:12 37.0 C 60 19 105/59 L 93 PG Care Time/CCT Total # of Minutes Spent Total Time Spent with Patient: Total time spent is greater than 50% in coordination of care (as documented) at patient's floor/unit and/or counseling patient: Coding Level of Care Code 68358 Subseq Hosp Care Lvl 3 Diagnoses Acute left flank pain R10.9 Hematuria R31.0 Hematuria type: gross Renal hematoma S37.012A Encounter type: initial encounter Laterality: left Acute UTI N39.0 (1) Hematuria Hematuria type: gross Qualified Code(s): R31.0 - Gross hematuria (2) Renal hematoma Encounter type: initial encounter Laterality: left Qualified Code(s): S37.012A - Minor contusion of left kidney, initial encounter
--- NOTE | 2021-09-22 11:17 | CT Scan Report ---
ABDOMEN AND PELVIS CT WITHOUT CONTRAST CT DOSE: 2246.98 mGy.cm HISTORY: f/u renal hematoma TECHNIQUE: Multiaxial CT images of the abdomen and pelvis were performed without contrast. A dose lo wering technique was utilized adhering to the principles of ALARA. COMPARISON STUDY: Abdomen and pelvis CT 09/19/2021. FINDINGS: Interval development of a trace left pleural effusion. The heart is enlarged. Pacemaker wir es are noted. Mild atelectasis seen within the left lower lobe likely due to the pleural effusion. St able 6 mm right lower lobe pulmonary nodule. This is likely benign given the long-term stability. No acute fractures within the visualized osseous structures. Small fat-containing umbilical hernia. Ther e are small bilateral inguinal hernias also noted. A few small gallstones. No gallbladder wall thicke bhanu. The unenhanced liver, pancreas, and spleen are unremarkable. There are few small hypodense lesi ons within the right kidney which are incompletely characters on this noncontrast study but statistic ally represent cysts. No right-sided hydronephrosis. No retroperitoneal lymphadenopathy. Normal color abdominal aorta. Bilateral fat-containing adrenal gland nodules with the largest on the left measuri ng 2.7 cm. These are consistent with benign myelolipomas. Stable exophytic hypodense lesion within th e left kidney which are also incompletely characterized on this noncontrast study but statistically r epresent cysts. There is again noted a large left renal subcapsular hematoma extension to the surroun ding perinephric space. There is also a small hemorrhage adjacent to the spleen and extending into th e left retroperitoneal/extraperitoneal and presacral spaces within the pelvis. This results in signif icant mass effect along the left kidney suggestive of a page kidney. The overall size of the left maicol al subcapsular hematoma has slightly decreased in size and demonstrates a maximal thickness of 4 cm, previously measuring 5 cm. No left-sided hydronephrosis. The bladder is unremarkable. Suboptimal eval uation for bowel pathology due to the lack of intravenous and oral contrast. However, there is no def inite bowel wall thickening or obstruction. Colonic diverticulosis. No evidence for acute diverticuli tis. Normal appendix.. IMPRESSION: 1. Redemonstration of the large left renal subcapsular hematoma resulting in significant mass effect along the kidney consistent with a page kidney. This has slightly decreased in size in the interval a s described above. The exact etiology is not clearly identified on this study. Therefore, follow-up r enal CT or MRI protocol in 3 months is recommended to exclude an underlying renal mass. 2. Small amount of left retroperitoneal/extraperitoneal and presacral hemorrhage is again noted. This is similar to the prior study. 3. Trace left pleural effusion. 4. Additional findings as described above. ACT 112: Negative or not required by law. Electronically signed by: Jonah Jenkins M.D. 09/22/2021 11:16 AM
[2021-09-22 16:13] LABS: Hematocrit (blood only) 32.2 % (42-52); Hemoglobin 10.4 g/dL (14.0-18.0)
--- NOTE | 2021-09-22 16:26 | Hospitalist Progress Note ---
Date of Service September 22, 2021 Assessment & Plan (1) Hematuria: (2) Acute UTI: (3) Renal hematoma: Plan: 71-year-old man with PMH of chronic systolic heart failure 2/2 idiopathic CM [EF 35 to 40%, TTE 2018], V. tach, sinus bradycardia status post ICD, HTN, CRI [ baseline creatinine 1.7 from 2020], MICHAEL [CPAP intolerant], prediabetes, chronic venous insufficiency and past tobacco abuse presented to our ED 09/19 with 1 day history of achy left flank pain symptoms without fever chills or nausea or vomiting. Patient noted hematuria. Is being managed for the following: #. Renal hematoma #. Hematuria #. Complicated UTI #. 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 Urology evaluated: Conservative management, hematuria work-up in future includ ing dedicated CT scan and cystoscopy. Follow-up with urology as an outpatient. If hemodynamically unstable or hemoglobin dropping or pain is not controlled, transfer to tertiary care center [IR for possible embolization] for urology. Admitting CTAP: Large left renal hematoma. Urinalysis at presentation suggestive of UTI, follow-up with urine culture --> contaminant 09/22 repeat CTAP: Large left renal subcapsular hematoma has slightly decreased in size in the interval. Small amount of left retroperitoneal/extraperitoneal and presacral hemorrhage is similar to the prior study. Patient's blood pressure fairly controlled, hemodynamically stable, H&H is stable around 10 so far, every 6 H&H. Vitals every 4 hours, H&H every 6 Hours, pain control supportive management, IV fluids. Continue with cefepime 09/20. #. THANH on CKD stage II Baseline creatinine 1.7 Admitting creatinine 1.95, 2.34 today Continue with IV fluids, monitor BMP daily. C/w iv fluids. Pt will need Nephrology as OP, consider inpatient nephro if Cr uptrends. #. Other chronic medical conditions: History of V. tach, sinus bradycardia status post ICD, chronic systolic heart failure secondary to idiopathic CM, hypertension Resume/continue with home meds as and when appropriate. Hold aspirin, renal hematoma. #. DM new diagnosis, A1c of 6.29 January 2021 Patient was prediabetic for 10 years, managed with diet only A1c this admission 6.2, good control. 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 DVT prophylaxis. SCDs Re: Renal hematoma Full code Admission and Anticipated Discharge Date Admission Date: September 19, 2021 Subjective Patient was seen and examined at bedside as a follow-up of left renal hematoma and hematuria along with complicated UTI. Patient was sitting up in chair, on room air, NAD. Denies any symptoms overnight. Denies any headache or dizziness. Denies any pain in the left belly. Denies any blood in the urine. Reports eating and moving bowels okay. Patient denies fever/dizziness/chills/sore throat/chest pain/palpitation/other review of symptoms. Physical Exam Physical Exam: GENERAL: Alert and oriented x3. NAD, on RA. Morbidly obese HEENT: No pallor, no icterus. Pupils equal, round and reactive to light. Oral mucosa moist. NECK: No JVD, no neck masses. HEART: S1 and S2 heard. Regular rate and rhythm. No murmur, no gallop. RESPIRATORY SYSTEM: Normal AP diameter. No accessory muscle use. No wheezing, no crackles. ABDOMEN: Soft, bowel sounds present, nontender, no distention. CENTRAL NERVOUS SYSTEM: No facial droop. Speech is clear. Obeys simple commands. Moves extremities. EXTREMITIES: Trace BLE edema w/ chronic skin changes, no erythema seen. Results & Data Results & Data ([facility]) Vital Signs (Past 12 Hours) Vital Signs Temp Pulse Resp BP Pulse Ox 09/22/21 08:38 66 09/22/21 07:39 37.0 C 59 L 18 111/67 90 (1) Hematuria Hematuria type: gross Qualified Code(s): R31.0 - Gross hematuria (2) Renal hematoma Encounter type: initial encounter Laterality: left Qualified Code(s): S37.012A - Minor contusion of left kidney, initial encounter
[2021-09-22] MEDS: SODIUM CHLORIDE 0.9% 1000ML 1,000 ML IV SCH (17:29)
[2021-09-22] MEDS: ACETAMINOPHEN 325 MG TAB PO PRN (18:38)
[2021-09-23 01:09] LABS: Hematocrit (blood only) 31.2 % (42-52); Hemoglobin 9.9 g/dL (14.0-18.0)
[2021-09-23] MEDS: ACETAMINOPHEN 325 MG TAB PO PRN (04:19)
[2021-09-23] MEDS: CEFEPIME 1,000 MG in SYRINGE 0 ML IV SCH ×2 (05:41→17:59)
[2021-09-23] MEDS: SODIUM CHLORIDE 0.9% 1000ML 1,000 ML IV SCH (05:51)
[2021-09-23 08:04] LABS: Hematocrit (blood only) 30.8 % (42-52); Hemoglobin 9.7 g/dL (14.0-18.0); Mean Corpuscular Hemoglobin 31.1 pg (25-34); Mean Corpuscular Hgb Conc 31.5 g/dL (32-36); Mean Corpuscular Volume 98.7 fL (80-100); Mean Platelet Volume 11.2 fL (7.4-10.4); Platelet Count 160 K/uL (130-400); RDW Coefficient of Variation 13.8 % (11.5-14.5); RDW Standard Deviation 49.4 fL (36.4-46.3); Red Blood Count 3.12 M/uL (4.7-6.1); White Blood Count 8.03 K/uL (4.8-10.8)
[2021-09-23 08:42] LABS: BUN Creatinine Ratio 18.1 (10-20); Creatinine Clr Calc Pharmacy 57.1 ml/min; Est GFR (African American) 42.7 ml/min; Est GFR (Non-African American) 36.8 ml/min; Potassium 4.8 mmol/L (3.5-5.1)
[2021-09-23] MEDS: INSULIN ASPART PER UNIT SC SCH ×4 (08:45→21:00)
[2021-09-23] MEDS: METOPROLOL SUCC 50MG EXT REL TAB PO SCH (08:46)
[2021-09-23] MEDS: ATORVASTATIN 40 MG TAB PO SCH (08:46)
[2021-09-23] MEDS: AMIODARONE 200 MG TAB PO SCH ×2 (08:46→20:54)
--- NOTE | 2021-09-23 14:48 | Hospitalist Progress Note ---
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 tach, sinus bradycardia status post ICD, HTN, CRI [ baseline creatinine 1.7 from 2020], MICHAEL [CPAP intolerant], prediabetes, chronic venous insufficiency and past tobacco abuse presented to our ED 09/19 with 1 day history of achy left flank pain symptoms without fever chills or nausea or vomiting. Patient noted hematuria. 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 Urology evaluated: Conservative management, hematuria work-up in future including dedicated CT scan and cystoscopy. Follow-up with urology as an outpatient. If hemodynamically unstable or hemoglobin dropping or pain is not controlled, transfer to tertiary care center [IR for possible embolization] for urology. Admitting CTAP: Large left renal hematoma. Urinalysis at presentation suggestive of UTI, follow-up with urine culture --> contaminant 09/22 repeat CTAP: Large left renal subcapsular hematoma has slightly decreased in size in the interval. Small amount of left retroperitoneal/extraperitoneal and presacral hemorrhage is similar to the prior study. Patient's blood pressure fairly controlled, hemodynamically stable, H&H is stable around 9.7 so far, every 6 H&H. Vitals every 4 hours, H&H every 6 Hours, pain control supportive management, IV fluids. Continue with cefepime 2/25 for 5 day course, to complete at end of day 3/1 THANH on CKD stage II Baseline creatinine 1.7 Admitting creatinine 1.95, peaked at 2.77 Cr 1.82 today D/C IVF Pt will need Nephrology as OP, consider inpatient nephro if Cr uptrends. lisinopril, lasix on hold T2DM A1C 6.29 january 2021 A1C 6.2 this admission diet controlled Other chronic medical conditions: History of V. tach, sinus bradycardia status post ICD, chronic systolic heart failure secondary to idiopathic CM, hypertension Resume/continue with home meds as and when appropriate. Hold aspirin, renal hematoma. PCP: [facility] DVT prophylaxis. SCDs Re: Renal hematoma Full code Pt was seen and examined in collaboration with Dr. Blake, please see addendum Admission and Anticipated Discharge Date Admission Date: September 19, 2021 Supervising Physician Co-Signing Physician Notes 71-year-old gentleman with PMH of chronic systolic heart failure secondary to idiopathic cardiomyopathy, CKD with baseline creatinine 1.7, MICHAEL CPAP intolerant is being managed for left renal hematoma and hematuria. Patient's hematuria has been improved. He is also getting antibiotic for complicated UTI. His THANH over CKD stage II is getting better. DC IV fluids. Patient reports some left-sided belly pain upon movement. At rest he does not have pain. Upon examination, room air, NAD, morbidly obese patient, no abdominal tenderness on deep palpation, agree with the rest of the examination as above. I have seen and examined the patient and have discussed the case with the provider above. I agree with the assessment and plan as stated. Subjective Patient was seen and examined in room 378-1. Follow-up left renal hematoma. He states he continues to have left flank pain, worse with getting in and out of bed. He also continues to experience intermittent hematuria. Denies any fever, chills, sweats, lightheadedness, dizziness, chest pain, s hortness of breath, cough, nausea, vomiting, abdominal pain. Overall appetite is stable. Review of Systems Review of Systems: All systems reviewed & are unremarkable except as noted in HPI & below Physical Exam Physical Exam: Gen: Morbidly obese, male, sitting up in bed, morbid mobility, WD/WN, NAD, A&O x3 HEENT: Normocephalic, atraumatic, conjunctivae moist, sclerae anicteric, mucous membranes moist. Lung: Clear to Auscultation bilaterally, decreased breath sounds at bases, no wheezes/rales/rhonchi Heart: Regular rate, regular rhythm, no murmurs, rubs, or gallops Abdomen: Soft, NT, ND +BS x 4 Extremities: No edema Skin: Warm, no rash, negative turgor. Results & Data Results & Data ([facility]) Vital Signs (Past 12 Hours) Vital Signs Temp Pulse Pulse Resp BP Pulse Ox 09/23/21 14:32 36.5 C 60 18 111/73 91 09/23/21 07:28 37.5 C 60 14 110/60 90 Laboratory Results Short CBC 09/19/21 09/20/21 09/21/21 Range/Units 18:30 06:35 10:46 WBC (4.8-10.8) K/uL Hgb (14.0-18.0) g/dL Hct (42-52) % Plt Count (130-400) K/uL Creatinine 1.95 H 2.18 H 2.77 H D (0.6-1.4) mg/dl 09/22/21 09/22/21 09/23/21 Range/Units 06:21 15:55 00:39 WBC (4.8-10.8) K/uL Hgb 10.4 L 9.9 L (14.0-18.0) g/dL Hct 32.2 L 31.2 L (42-52) % Plt Count (130-400) K/uL Creatinine 2.34 H D (0.6-1.4) mg/dl 09/23/21 09/23/21 Range/Units 07:48 07:48 WBC 8.03 (4.8-10.8) K/uL Hgb 9.7 L (14.0-18.0) g/dL Hct 30.8 L (42-52) % Plt Count 160 (130-400) K/uL Creatinine 1.82 H D (0.6-1.4) mg/dl [facility] 09/23/21 07:48 Sodium 135 L Potassium 4.8 Chloride 104 Carbon Dioxide 27 BUN 33 H Creatinine 1.82 H D Glucose 116 H Calcium 8.0 L Diagnostic Findings Abdomen/Pelvis CT 09/22/21 10:[address] WITHOUT CONTRAST CT DOSE: 2246.98 mGy.cm HISTORY: f/u renal hematoma TECHNIQUE: Multiaxial CT images of the abdomen and pelvis were performed without contrast. A dose lowering technique was utilized adhering to the principles of ALARA. COMPARISON STUDY: Abdomen and pelvis CT 09/19/2021. FINDINGS: Interval development of a trace left pleural effusion. The heart is enlarged. Pacemaker wires are noted. Mild atelectasis seen within the left lower lobe likely due to the pleural effusion. Stable 6 mm right lower lobe pulmonary nodule. This is likely benign given the long-term stability. No acute fractures within the visualized osseous structures. Small fat-containing umbilical hernia. There are small bilateral inguinal hernias also noted. A few small gallstones. No gallbladder wall thickening. The unenhanced liver, pancreas, and spleen are unremarkable. There are few small hypodense lesions within the right kidney which are incompletely characters on this noncontrast study but statistically represent cysts. No right-sided hydronephrosis. No retroperitoneal lymphadenopathy. Normal color abdominal aorta. Bilateral fat-containing adrenal gland nodules with the largest on the left measuring 2.7 cm. These are consistent with benign myelolipomas. Stable exophytic hypodense lesion within the left kidney which are also incompletely characterized on this noncontrast study but statistically represent cysts. There is again noted a large left renal subcapsular hematoma extension to the surrounding perinephric space. There is also a small hemorrhage adjacent to the spleen and extending into the left retroperitoneal/extraperitoneal and presacral spaces within the pelvis. This results in significant mass effect along the left kidney suggestive of a page kidney. The overall size of the left renal subcapsular hematoma has slightly decreased in size and demonstrates a maximal thickness of 4 cm, previously measuring 5 cm. No left-sided hydronephrosis. The bladder is unremarkable. Suboptimal evaluation for bowel pathology due to the lack of intravenous and oral contrast. However, there is no definite bowel wall thickening or obstruction. Colonic diverticulosis. No evidence for acute diverticulitis. Normal appendix.. IMPRESSION: 1. Redemonstration of the large left renal subcapsular hematoma resulting in significant mass effect along the kidney consistent with a page kidney. This has slightly decreased in size in the interval as described above. The exact etiolog y is not clearly identified on this study. Therefore, follow-up renal CT or MRI protocol in 3 months is recommended to exclude an underlying renal mass. 2. Small amount of left retroperitoneal/extraperitoneal and presacral hemorrhage is again noted. This is similar to the prior study. 3. Trace left pleural effusion. 4. Additional findings as described above. ACT 112: Negative or not required by law. Electronically signed by: Jonah Jenkins M.D. 09/22/2021 11:16 AM (1) Renal hematoma Encounter type: initial encounter Laterality: left Qualified Code(s): S37.012A - Minor contusion of left kidney, initial encounter (2) Hematuria Hematuria type: gross Qualified Code(s): R31.0 - Gross hematuria
[2021-09-23 16:08] LABS: Hematocrit (blood only) 32.3 % (42-52); Hemoglobin 10.2 g/dL (14.0-18.0)
[2021-09-23 21:56] LABS: Base Excess ABG 0.6 mEq/L (-9-1.8); HCO3 ABG 27 mmol/L (19-24); Oxygen Saturation ABG 94.9 % (90-95); PCO2 ABG 49 mmHg (35-46); PO2 ABG 76 mmHg (80-95); pH ABG 7.35 (7.35-7.45)
[2021-09-23 22:02] LABS: Partial Thromboplastin Ratio 0.9; Partial Thromboplastin Time 22.9 Seconds (21.0-31.0)
[2021-09-23 22:06] LABS: Allen Test POS (Pos)
[2021-09-23 22:11] LABS: BUN Creatinine Ratio 18.6 (10-20); Calcium 8.1 mg/dl (8.5-10.1); Creatinine Clr Calc Pharmacy 64.6 ml/min; Est GFR (African American) 49.5 ml/min; Est GFR (Non-African American) 42.7 ml/min; Magnesium 2.1 mg/dl (1.7-2.4); Potassium 4.8 mmol/L (3.5-5.1)
[2021-09-23] MEDS ORDERED: ALBUMIN 25% 100 mL 25 GM/100 ML VIAL IV ONE (22:27)
[2021-09-23] MEDS ORDERED: FUROSEMIDE 40 MG/4 ML VIAL IV ONE (22:27)
[2021-09-24] MEDS: CEFEPIME 1,000 MG in SYRINGE 0 ML IV SCH ×2 (06:06→17:47)
--- NOTE | 2021-09-24 06:55 | XRay Report ---
XR chest 1V portable CLINICAL HISTORY: low o2. COMPARISON STUDY: 09/19/2021 TECHNIQUE: 1 view of the chest FINDINGS: Single frontal view of the chest demonstrates the heart to again be enlarged with permanent cardiac p acer in place. The lungs are clear of alveolar opacities. There is no evidence for pleural effusion. There is no evidence for vascular congestion. There is no acute osseous pathology. IMPRESSION: 1. No acute cardiopulmonary disease. There is no significant interval change. ACT 112: Negative or not required by law. Electronically signed by: Ramesh Rivero M.D. 09/24/2021 6:54 AM
[2021-09-24 08:08] LABS: Hematocrit (blood only) 32.4 % (42-52); Hemoglobin 10.4 g/dL (14.0-18.0); Mean Corpuscular Hgb Conc 32.1 g/dL (32-36); Mean Corpuscular Volume 99.7 fL (80-100); Mean Platelet Volume 11.2 fL (7.4-10.4); Platelet Count 192 K/uL (130-400); RDW Coefficient of Variation 13.6 % (11.5-14.5); RDW Standard Deviation 49.6 fL (36.4-46.3); Red Blood Count 3.25 M/uL (4.7-6.1); White Blood Count 7.54 K/uL (4.8-10.8)
[2021-09-24] MEDS ORDERED: FUROSEMIDE INJ 20 MG/2 ML VIAL IV ONE (08:38)
[2021-09-24 08:46] LABS: Calcium 8.5 mg/dl (8.5-10.1); Est GFR (Non-African American) 41.4 ml/min; Potassium 4.6 mmol/L (3.5-5.1)
[2021-09-24] MEDS: ATORVASTATIN 40 MG TAB PO SCH (08:50)
[2021-09-24] MEDS: AMIODARONE 200 MG TAB PO SCH ×2 (08:50→20:17)
[2021-09-24] MEDS: METOPROLOL SUCC 50MG EXT REL TAB PO SCH (08:50)
[2021-09-24] MEDS: INSULIN ASPART PER UNIT SC SCH ×4 (08:54→21:15)
--- NOTE | 2021-09-24 11:14 | Hospitalist Progress Note ---
Date of Service September 24, 2021 Assessment & Plan (1) Hematuria: (2) Acute UTI: (3) Renal hematoma: Plan: 71-year-old man with PMH of chronic systolic heart failure 2/2 idiopathic CM [EF 35 to 40%, TTE 2018], V. tach, sinus bradycardia status post ICD, HTN, CRI [baseline creatinine 1.7 from 2020], MICHAEL [CPAP intolerant], prediabetes, chronic venous insufficiency and past tobacco abuse presented to our ED 09/19 with 1 day history of achy left flank pain symptoms without fever chills or nausea or vomiting. Patient noted hematuria. Is being managed for the following: Renal hematoma Hematuria Complicated UTI Acute blood loss anemia --> 2/2 hematoma Patient presented with achy left flank pain 1 days ago [employer], associated with hematuria. Urology evaluated: Conservative management, hematuria work-up in future including dedicated CT scan and cystoscopy. Follow-up with urology as an outpatient. If hemodynamically unstable or hemoglobin dropping or pain is not controlled, transfer to tertiary care center [[facility] for possible embolization] for urology. Admitting CTAP: Large left renal hematoma. Urinalysis at presentation suggestive of UTI, follow-up with urine culture --> contaminant 09/22 repeat CTAP: Large left renal subcapsular hematoma has slightly decreased in size in the interval. Small amount of left retroperitoneal/extraperitoneal and presacral hemorrhage is similar to the prior study. Pt hgb is stabilizing, 10.4 today I think we can decrease frequency of h/h to daily for now continue to monitor VS closely Cefepime to finish today Hypoxia Acute on chronic chronic Systolic CHF Idiopathic cardiomyopathy Last echocardiogram 12/2019 revealed EF 30 to 35% with moderate global hypokinesis of left ventricle Patient has defibrillator in place, follows [facility] and Dr. Armstrong His Lasix 40 twice daily has been held secondary to THANH THANH has resolved and renal function back to baseline Also received IVF in setting of THANH CXR: no acute abn, on 3L of O2 Mild elevation in proBNP, trop negative likely mild exacerbation of systolic CHF Received Lasix 20 mg IV last evening, give additional 20 mg IV Lasix this morning obtain echocardiogram daily weights, strict intake and output Pt reassess at 13:30, off O2 saturating at 94% on RA. Had good UOP thus far. Will resume home lasix regimen of 40mg bid with first dose at 1400 THANH on CKD stage III Baseline creatinine 1.7 Admitting creatinine 1.95, peaked at 2.77 Cr 1.65 D/C IVF Pt will need Nephrology as OP, consider inpatient nephro if Cr uptrends. resume oral lasix, continue to hold lisinopril due to lower blood pressure resume as BP allows T2DM A1C 6.29 january 2021 A1C 6.2 this admission diet controlled PCP: Cande DVT prophylaxis. SCDs Re: Renal hematoma, home ASA on hold Full code Dispo: hgb stablizing, cr improved, resume lasix, c urrently mild exac of CHF, resuming oral lasix, PT/OT ordered, may be ready to D/c in next day or so, will discuss with urology prior to d/c. Pt was seen and examined in collaboration with Dr. Blake, please see addendum Admission and Anticipated Discharge Date Admission Date: September 19, 2021 Supervising Physician Co-Signing Physician Notes 71-year-old gentleman with PMH of chronic systolic heart failure secondary to idiopathic cardiomyopathy, CKD with baseline creatinine 1.7, MICHAEL CPAP intolerant is being managed for left renal hematoma and hematuria. Patient's hematuria has been improved. He is also getting antibiotic for complicated UTI. His THANH over CKD stage II resolved, c/w home meds including lasix. Pt developed ac on chronic Systolic HFrEF (EF 30-35%) 2/2 holding of lasix d/t THANH/CKD and need for IVF. received iv doses of lasix and gotten better. Resume home dose of lasix, continue to monitor BMP. Patient reports some left-sided belly pain upon movement. At rest he does not have pain. Likely DC bren with uro recommedations. Upon examination, room air, NAD, morbidly obese patient, no abdominal tenderness on deep palpation, agree with the rest of the examination as above. I have seen and examined the patient and have discussed the case with the provider above. I agree with the assessment and plan as stated. Subjective Patient was seen and examined in room 378-1. Follow-up left renal hematoma. "I feel better this morning than I did last night, but I am tired" "You have not been giving me my Lasix and that is why my lungs are full of fluid." Currently he is on 3L of O2. He feels his breathing is improved. He denies any chest pain, hemoptysis, shortness of breath at rest, fever, chills, sweats, cough, nausea, vomiting, abdominal pain. He states he was up all night urinating and that is why he did not sleep. Review of Systems Review of Systems: All systems reviewed & are unremarkable except as noted in HPI & below Physical Exam Physical Exam: Gen: Morbidly obese, male, sitting up in bedside chair, morbid mobility, WD/WN, NAD, A&O x3 HEENT: Normocephalic, atraumatic, conjunctivae moist, sclerae anicteric, mucous membranes moist. Lung: Clear to Auscultation bilaterally, decreased breath sounds at bases, no wheezes/rales/rhonchi on O2 via NC Heart: Regular rate, regular rhythm, no murmurs, rubs, or gallops Abdomen: Soft, NT, ND +BS x 4 Extremities: b/l lower ext venous stasis, trace edema No edema Skin: Warm, no rash, negative turgor. Results & Data Results & Data ([facility]) Vital Signs (Past 12 Hours) Vital Signs Temp Pulse Resp BP Pulse Ox 09/24/21 07:48 36.6 C 63 16 106/61 96 Laboratory Results Short CBC 09/23/21 09/24/21 Range/Units 15:56 07:26 WBC 7.54 (4.8-10.8) K/uL Hgb 10.2 L 10.4 L (14.0-18.0) g/dL Hct 32.3 L 32.4 L (42-52) % Plt Count 192 (130-400) K/uL BMP 09/23/21 09/24/21 21:46 07:26 Sodium 134 L 137 Potassium 4.8 4.6 Chloride 104 104 Carbon Dioxide 25 29 BUN 30 H 28 H Creatinine 1.61 H 1.65 H Glucose 114 H 93 Calcium 8.1 L 8.5 Cardiac Enzymes 09/24/21 Range/Units 08:22 Troponin I < 0.03 (0-0.04) ng/ml Diagnostic Findings Chest X-Ray 09/23/21 21:28 XR chest 1V portable CLINICAL HISTORY: low o2. COMPARISON STUDY: 09/19/2021 TECHNIQUE: 1 view of the chest FINDINGS: Single frontal view of the chest demonstrates the heart to again be enlarged with permanent cardiac pacer in place. The lungs are clear of alveolar opacities. There is no evidence for pleural effusion. There is no evidence for vascular congestion. There is no acute osseous pathology. IMPRESSION: 1. No acute cardiopulmonary disease. There is no significant interval change. ACT 112: Negative or not required by law. Electronically signed by: Ramesh Rivero M.D. 09/24/2021 6:54 AM (1) Renal hematoma Encounter type: initial encounter Laterality: left Qualified Code(s): S37.012A - Minor contusion of left kidney, initial encounter (2) Hematuria Hematuria type: gross Qualified Code(s): R31.0 - Gross hematuria
--- NOTE | 2021-09-24 14:27 | Ultrasound Report ---
BILATERAL LOWER EXTREMITY VENOUS DOPPLER CLINICAL HISTORY: Bilateral calf swelling. COMPARISON STUDY: No previous studies for comparison. TECHNIQUE: Sonography of the deep venous system of the bilateral lower extremities was performed. Co mpression and augmentation were evaluated. FINDINGS: The bilateral common femoral, superficial femoral and popliteal veins were compressible. A ugmentation was normal. Flow was shown within the deep calf vessels although the calf vessels were dahl boptimally assessed due to lower extremities was. IMPRESSION: No evidence of deep venous thrombus within the bilateral lower extremities although calf vessels suboptimally assessed. ACT 112: Negative or not required by law. Electronically signed by: Bruno Palma M.D. 09/24/2021 2:26 PM
[2021-09-24] MEDS: FUROSEMIDE 40 MG TAB PO SCH ×2 (15:10→20:17)
[2021-09-25] MEDS: ATORVASTATIN 40 MG TAB PO SCH (08:30)
[2021-09-25] MEDS: METOPROLOL SUCC 50MG EXT REL TAB PO SCH (08:30)
[2021-09-25] MEDS: INSULIN ASPART PER UNIT SC SCH (08:31)
[2021-09-25] MEDS: AMIODARONE 200 MG TAB PO SCH (08:31)
[2021-09-25 08:38] LABS: Hematocrit (blood only) 32.5 % (42-52); Hemoglobin 10.4 g/dL (14.0-18.0); Mean Corpuscular Hemoglobin 31.3 pg (25-34); Mean Corpuscular Volume 97.9 fL (80-100); Mean Platelet Volume 10.8 fL (7.4-10.4); Platelet Count 199 K/uL (130-400); RDW Coefficient of Variation 13.5 % (11.5-14.5); RDW Standard Deviation 48.5 fL (36.4-46.3); Red Blood Count 3.32 M/uL (4.7-6.1)
[2021-09-25 09:20] LABS: BUN Creatinine Ratio 20.3 (10-20); Calcium 8.4 mg/dl (8.5-10.1); Creatinine Clr Calc Pharmacy 65.8 ml/min; Est GFR (African American) 50.6 ml/min; Est GFR (Non-African American) 43.7 ml/min; Potassium 4.4 mmol/L (3.5-5.1)
[2021-09-25] MEDS: FUROSEMIDE 40 MG TAB PO SCH (09:49)
--- NOTE | 2021-09-25 10:20 | Discharge Summary ---
Date of Service September 25, 2021 Admission HPI Per Admitting Provider History obtained from patient and records. Medical history significant for chronic systolic heart failure secondary to idiopathic cardiomyopathy (EF 35 to 40%, TTE 2018), history VT, sinus bradycardia status post ICD, HTN, CRI (baseline creatinine 1.7 from 2020), MICHAEL (CPAP intolerant), prediabetes, chronic venous insufficiency, past tobacco abuse. Last confinement December 2019 for recurrent VT. Patient developed bradycardia during confinement. Underwent biventricular ICD placement. Patient transferred to [facility] for recurrent episodes of V. tach. 1 day history of achy left flank pain symptoms without fever, chills. No nausea, no vomiting. Patient also noted hematuria symptoms. No chest pain, no S OB. No prior episodes. No recollection of recent trauma. Ceftriaxone given at the ER for UTI. 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 Admission Exam Per Admitting Provider GENERAL: Comfortable, morbidly obese, no respiratory distress SKIN: Pallor , warm HEENT: Alopecia, bespectacled, pale palpebral conjunctivae, no ptosis, dry buccal mucosa NECK : Supple, short neck, no tenderness CHEST : Decreased breath sounds , no tenderness HEART : RRR , no obvious murmurs ABDOMEN: Some distention, nontender BACK : Minimal left flank tenderness EXTREMITIES : Minimal LE swelling, no LE tenderness, no other conspicuous deformities noted NEUROLOGIC : Coherent, no facial asymmetry, mild hearing impairment, no other gross focality Principal Diagnosis Large Left Renal hematoma Hematuria Acute blood loss anemia secondary to hematoma Hypoxia -resolved Acute on chronic systolic CHF Acute on chronic CKD stage III Discharge Exam Gen: Morbidly obese, male, sitting up in bedside chair, morbid mobility, WD/WN, NAD, A&O x3 HEENT: Normocephalic, atraumatic, conjunctivae moist, sclerae anicteric, mucous membranes moist. Lung: Clear to Auscultation bilaterally, decreased breath sounds at bases, no wheezes/rales/rhonchi on O2 via NC Heart: Regular rate, regular rhythm, no murmurs, rubs, or gallops Abdomen: Soft, NT, ND +BS x 4 Extremities: b/l lower ext venous stasis, teds in place, trace edema Skin: Warm, no rash, negative turgor. Discharge Data Allergies Allergy/AdvReac Type Severity Reaction Status Date / Time No Known Drug Allergies Allergy Unknown Verified 09/19/21 21:48 Consultations 09/19/21 21:00 ED Decision to Admit Stat 09/19/21 21:07 Consult Urology Stat Ordered Studies Abdomen/Pelvis CT 09/19/21 19:25 CT OF THE ABDOMEN AND PELVIS WITHOUT CONTRAST CLINICAL HISTORY: Left flank pain. COMPARISON STUDY: CT of the chest and abdomen February 08, 2010. TECHNIQUE: Axial images of the abdomen and pelvis were obtained without IV contrast. Images were reviewed in the axial, sagittal, and coronal planes. Automated exposure control was utilized for the study. A dose lowering technique was utilized adhering to the principles of ALARA. FINDINGS: A 6 mm right lower lobe pulmonary nodules unchanged since CT of February 09, 2020. This is benign given stability. Pacer leads are partially imaged. There is cardiomegaly. No pneumatosis, free air or portal venous gas is present. Unenhanced images of the liver, spleen, adrenal glands and pancreas are unremarkable. There is no biliary or pancreatic ductal dilatation. There is no hydronephrosis. Note is made of a large acute left renal subcapsular hematoma. This measures 4.4 cm in thickness and has significant mass effect upon the kidney. There is also moderate hemorrhage within and adjacent to the left Gerota's fascia. Multiple left renal lesions are noted. These are suboptimally assessed on this unenhanced exam. Several measure water attenuation and favor cysts. No urinary calculi are identified. There is no evidence for a bowel obstruction. No acute fracture or suspicious lesion is identified within visualized skeletal structures. There are fat-containing bilateral inguinal hernias. IMPRESSION: Large acute left renal subcapsular hematoma with moderate hemorrhage within and adjacent to Gerota's fascia. This hematoma has significant mass effect upon the kidney. The etiology for this hemorrhage is not clear and a follow-up MR or CT renal protocol in 3 months to exclude an underlying renal mass is recommended. Findings discussed with Dr. Curtis at time of dictation. ACT 112: Negative or not required by law. Electronically signed by: Bruno Palma M.D. 09/19/2021 8:53 PM Chest X-Ray 09/19/21 21:36 XR chest 1V portable HISTORY: 71 years-old Male renal failure acute renal failure COMPARISON: Chest radiograph 12/31/2019 TECHNIQUE: Portable AP view of the chest FINDINGS: Cardiac silhouette is enlarged. Left subclavian pacer/AICD. Mild right hemidiaphragmatic elevation. No pneumothorax, pleural effusion, airspace consolidation or overt pulmonary edema. Degenerative changes of the shoulders and spine. IMPRESSION: Cardiomegaly without acute process. ACT 112: Negative or not required by law. The above report was generated using voice recognition software. It may contain grammatical, syntax or spelling errors. Electronically signed by: Ancelmo Jones M.D. 09/20/2021 7:34 AM Abdomen/Pelvis CT 09/22/21 10:[address] WITHOUT CONTRAST CT DOSE: 2246.98 mGy.cm HISTORY: f/u renal hematoma TECHNIQUE: Multiaxial CT images of the abdomen and pelvis were performed without contrast. A dose lowering technique was utilized adhering to the principles of ALARA. COMPARISON STUDY: Abdomen and pelvis CT 09/19/2021. FINDINGS: Interval development of a trace left pleural effusion. The heart is enlarged. Pacemaker wires are noted. Mild atelectasis seen within the left lower lobe likely due to the pleural effusion. Stable 6 mm right lower lobe pulmonary nodule. This is likely benign given the long-term stability. No acute fractures within the visualized osseous structures. Small fat-containing umbilical hernia. There are small bilateral inguinal hernias also noted. A few small gallstones. No gallbladder wall thickening. The unenhanced liver, pancreas, and spleen are unremarkable. There are few small hypodense lesions within the right kidney which are incompletely characters on this noncontrast study but statistically represent cysts. No right-sided hydronephrosis. No retroperitoneal lymphadenopathy. Normal color abdominal aorta. Bilateral fat-containing adrenal gland nodules with the largest on the left measuring 2.7 cm. These are consistent with benign myelolipomas. Stable exophytic hypodense lesion within the left kidney which are also incompletely characterized on this noncontrast study but statistically represent cysts. There is again noted a large left renal subcapsular hematoma extension to the surrounding perinephric space. There is also a small hemorrhage adjacent to the spleen and extending into the left retroperitoneal/extraperitoneal and presacral spaces within the pelvis. This re sults in significant mass effect along the left kidney suggestive of a page kidney. The overall size of the left renal subcapsular hematoma has slightly decreased in size and demonstrates a maximal thickness of 4 cm, previously measuring 5 cm. No left-sided hydronephrosis. The bladder is unremarkable. Suboptimal evaluation for bowel pathology due to the lack of intravenous and oral contrast. However, there is no definite bowel wall thickening or obstruction. Colonic diverticulosis. No evidence for acute diverticulitis. Normal appendix.. IMPRESSION: 1. Redemonstration of the large left renal subcapsular hematoma resulting in significant mass effect along the kidney consistent with a page kidney. This has slightly decreased in size in the interval as described above. The exact etiology is not clearly identified on this study. Therefore, follow-up renal CT or MRI protocol in 3 months is recommended to exclude an underlying renal mass. 2. Small amount of left retroperitoneal/extraperitoneal and presacral hemorrhage is again noted. This is similar to the prior study. 3. Trace left pleural effusion. 4. Additional findings as described above. ACT 112: Negative or not required by law. Electronically signed by: Jonah Jenkins M.D. 09/22/2021 11:16 AM Chest X-Ray 09/23/21 21:28 XR chest 1V portable CLINICAL HISTORY: low o2. COMPARISON STUDY: 09/19/2021 TECHNIQUE: 1 view of the chest FINDINGS: Single frontal view of the chest demonstrates the heart to again be enlarged with permanent cardiac pacer in place. The lungs are clear of alveolar opacities. There is no evidence for pleural effusion. There is no evidence for vascular congestion. There is no acute osseous pathology. IMPRESSION: 1. No acute cardiopulmonary disease. There is no significant interval change. ACT 112: Negative or not required by law. Electronically signed by: Ramesh Rivero M.D. 09/24/2021 6:54 AM Venous Doppler Study 09/24/21 14:00 BILATERAL LOWER EXTREMITY VENOUS DOPPLER CLINICAL HISTORY: Bilateral calf swelling. COMPARISON STUDY: No previous studies for comparison. TECHNIQUE: Sonography of the deep venous system of the bilateral lower extremities was performed. Compression and augmentation were evaluated. FINDINGS: The bilateral common femoral, superficial femoral and popliteal veins were compressible. Augmentation was normal. Flow was shown within the deep calf vessels although the calf vessels were suboptimally assessed due to lower extremities was. IMPRESSION: No evidence of deep venous thrombus within the bilateral lower extremities although calf vessels suboptimally assessed. ACT 112: Negative or not required by law. Electronically signed by: Bruno Palma M.D. 09/24/2021 2:26 PM Echocardiogram 09/24/21 Let ventricle is mildly dilated, there is mild left trickle hypertrophy. Septal motion is consistent with conduction abnormality. There is mild global hypokinesis of left ventricle. EF is 40 to 45%, right ventricle was moderately enlarged. There is biatrial enlargement. Grade 2 diastolic dysfunction. Moderate aortic valve sclerosis without significant aortic valve stenosis. There is mild mitral regurgitation, tricuspid regurgitation and elevation of right heart pressures with estimation of 40 to 45 mmHg. Diabetes Follow up a1c 6.2 on 09/19/21 Hospital Course (1) Hematuria: (2) Acute UTI: (3) Renal hematoma: 71-year-old man with PMH of chronic systolic heart failure 2/2 idiopathic CM [EF 35 to 40%, TTE 2018], V. tach, sinus bradycardia status post ICD, HTN, CRI [baseline creatinine 1.7 from 2020], MICHAEL [CPAP intolerant], prediabetes, chronic venous insufficiency and past tobacco abuse presented to our ED 09/19 with 1 day history of achy left flank pain symptoms without fever chills or nausea or vomiting. Patient noted to have hematuria. CT abdomen pelvis revealed large left renal hematoma. Urology saw the patient who recommended conservative management and follow-up with urology as outpatient. Patient's hemoglobin was monitored closely. He did have acute blood loss anemia secondary to hematoma and hbg dropped to 9.5, but on discharge stabilized and was 10.4. He was empiri adelaida started on IV cefepime due to concern for possible complicated urinary tract infection. He was treated for 5 days with antibiotics. His urine culture had no growth to date. He did have acute on chronic CKD. His creatinine peaked at 2.77. His Lasix and lisinopril were placed on hold and he received IV fluids. Subsequently he did develop mild volume overload and had mild exacerbation of acute HFrEF. He did require mild supplemental oxygen at 3 L. He received 2 doses of IV Lasix 20 mg. His hypoxia resolved and he was resumed on his home Lasix. His creatinine on discharge was 1.59. He did have a repeat echocardiogram as last echo in 2019 revealed EF 30 to 35%. His echocardiogram did show mild improvement in EF to 40 to 45%. On day of discharge patient was in good spirits, he was supplementing well on room air and his vital signs were stable. His hemoglobin has stabilized at 10.4 creatinine improved to 1.58. Case was discussed with urology and he will follow-up with them as outpatient for repeat CAT scan. He will also need repeat CBC and BMP in 5 days along with close follow-up with his PCP. It is recommended patient establish with nephrology due to CKD. His aspirin has been placed on hold due to hematoma and will be resumed once cleared by urology. I saw this patient with the physician assistant guest services manager, I participated in the physical exam. I reviewed the medications with the patient and the physician assistant guest services manager and helped reconcile the medications. We discussed the DC at length and PT is ready for DC Physical Exam Gen-AAO x 3, NAD, Afebrile, Obese Head-NCAT, EOMI, PERRLA, Anicteric Sclera, No Posterior Pharyngeal Erythema Neck-Supple, No JVD, No Thyromegaly, No Masses, No LAD, No Bruits Lungs-Clear to Auscultation Bilaterally, No Rales, No Rhonchi, No Wheezing, No Crepitus Chest-No S4, +S1, +S2, No S3, No Murmurs, No Rubs, No Gallops, No Ectopy Abdomen-Soft, Bowel Sounds Present, Non Tender, Non Distended, No Hepatomegaly, No Splenomegaly, No Palpable Masses, No Rebound, No Rigidity, No Guarding Musculoskeletal-Full Range of Motion Bilaterally, No CVAT Extremities-No Cyanosis, No Clubbing, No Edema Nuero-Cranial Nerves II-XII grossly intact, Motor WNL, DTRs WNL, Strength WNL, Non Focal Psych-Normal Mood Total Time Total Time Spent Total Time Spent (In Minutes): 60 minutes Total Time Includes: Examination of the Patient, Discharge Planning, Medication Reconciliation, Communication With Other Providers and Other Discharge Plan Discharge Items Patient Disposition: Home - Home Health Services Reason For Visit: RENAL HEMORRHAGE, COMP UTI Discharge Diagnosis: Large Left Renal hematoma Hematuria Acute blood loss anemia secondary to hematoma Hypoxia -resolved Acute on chronic systolic CHF Acute on chronic CKD stage III Condition on Discharge: Fair Activity: Resume your previous activity Lifting: None Bathing: No limitations Driving/Machine Use: Resume 3 days after discharge Weightbearing: Full weightbearing Non-emergency contact: Primary Care Provider and Urologist Call non-emergency contact if: you have any medication questions, your symptoms worsen, your pain is not controlled, your pain is unusual for you, you have a fever and your temperature is above 101 Follow-up/Referrals: Carlton Estrada MD [Physician] - (Urology office will call you with a follow up appointment for a repeat CT scan in 2-3 weeks. If you have not heard from them please call their office.) Kd Castellon MD [Primary Care Provider] - 09/30/21 11:20 am (Date & Time 09/30/2021 11:20 AM Provider Kd Castellon MD Department [facility] ) Diet: Carb Consistent or DM2, Heart Healthy and Low Sodium (2gm) Addtl Attending Provider Instructions: MEDICATION CHANGES: Please stop taking aspirin until you are cleared to resume by Urology due to Hematoma around your Kidney You may resume all other medications SUMMARY OF TEST RESULTS: You are admitted to hospital secondary to concern for blood in your urine. You were found to have a large left spontaneous renal hematoma. Repeat imaging on 09/22 revealed a slight decrease in size in your large left hematoma. Due to blood loss you are anemic. Your hemoglobin has stabilized at 10.4. Secondary to hematoma your kidney functions increased and your Lasix had to be placed on hold. Monitor kidney functions normalized your Lasix was resumed, creatinine at discharge was 1.59. You did have a mild exacerbation of heart failure secondary to Lasix being on hold. An ultrasound of your heart was performed which showed mild improvement in your ejection fraction to 40 to 45%. PENDING TEST RESULTS: None RECOMMENDATIONS FOR FOLLOW-UP: Please follow-up with primary care provider Dr. Rico as scheduled. You are scheduled 09/30/21 @ 11:20 a.m. You will need to have repeat blood work prior to your appointment to monitor your hemoglobin and kidney function. You can go to [facility] on 09/30/21, to have your blood work drawn. Urology will call you with a follow-up appointment for a repeat CAT scan to evaluate your left hematoma. You need to establish care with a electrical experimental mechanic (kidney doctor) due to your chron ic kidney disease. Please stop taking aspirin until you are cleared to resume by urology. You may resume all other medications. Avoid taking any anti inflammatory medications as they harm your kidneys. This includes ibuprofen, advil, motrin, aleve, naproxen, naprosyn, etc. OTHER INSTRUCTIONS: Seek medical attention if you have: * temperature above 101 * chest pain or trouble breathing * abdominal pain, nausea, vomiting * diarrhea, dark stools or bloody stools * any unanswered questions or concerns Call 911 if symptoms are severe. Please take good care of yourself. It has been a pleasure taking care of you. Please take care of yourself. If you have any questions regarding your recent hospitalization please contact [facility] and request [facility] @ [phone]. Etelvina Palacios PA-C Pending Studies at Discharge: No Stand-Alone Forms: My [facility], Smoking Cessation Medications and DC Order Prescriptions: Continued atorvastatin 40 mg tablet 40 mg PO DAILY RF: 0 sildenafil 100 mg tablet 100 mg PO DAILY PRN (Reason: Erectile Dysfunction) RF: 0 amiodarone 200 mg tablet 200 mg PO BID RF: 0 furosemide 40 mg tablet 40 mg PO BID RF: 0 tramadol 50 mg tablet 50 mg PO Q6H PRN (Reason: Pain) RF: 0 acetaminophen 500 mg capsule 1,000 mg PO Q6H PRN (Reason: Pain) RF: 0 lisinopril 5 mg Tablet 5 mg PO DAILY RF: 0 magnesium oxide 400 mg magnesium Tablet 400 mg PO DAILY RF: 0 metoprolol succinate 50 mg tablet extended release 24 hr 200 mg PO DAILY RF: 0 Discontinued aspirin 81 mg Tablet,Delayed Release (Dr/Ec) 81 mg PO DAILY RF: 0 Discharge Orders: Discharge Order (Routine); Ordered 09/25/21 Ordered By: Etelvina Palacios Admission Data Admit Date/Time: 09/19/21 23:02 Attending Provider: Marino Cash Admit Provider: Mustapha Iraheta Primary Care Provider: Kd Castellon Other Providers: Carlton Estrada ; Mitzi Ashford ; Etelvina Palacios Other Interventions: Discharge Summary Assessment (RN) Last Done: 09/25/21 12:57
== END 2021-09-25 15:48 | disposition home health service (06) | DRG 698 ==
LOC: ED 17:39 → SUATTDRO 23:02 → EDINP 23:02 → 3N 09-20 01:54

== ENCOUNTER 2021-12-10 22:36 | Observation (INO) ==
--- NOTE | 2021-12-10 23:17 | Emergency Department Note ---
History of Present Illness General Chief complaint: Urinary Symptoms Stated complaint: BLOOD IN URINE, L SIDE FLANK IRRITATION Time Seen by Provider: 12/10/21 22:59 Source: patient Mode of arrival: ambulatory Limitations: no limitations History of Present Illness Provider complaint: Hematuria Onset (ago): hour(s) 3 This is a 71-year-old male presents emergency department complaining of acute onset of gross hematuria. Patient states this is similar to his presentation back in August when he was found to have a bleeding mass on his kidney. Patient states he has been following with urology through [facility] and is undergone repeat CAT scans and he states that the mass and surrounding blood are shrinking. Patient denies fevers, chills, increased back or abdominal pain, nausea, vomiting, increased dizziness. Patient did have's have significant heart history, takes diuretics daily and has chronic lower extremity edema. Patient is not using any aspirin, NSAIDs, antiplatelet, or other anticoagulation. Patient denies any trauma or injury. He denies any dysuria, frequency, urgency. He denies abdominal pain or back pain. Patient states he has a chronic sense of irritation in the left flank ever since this was found in August, the sense of irritation has not increased or changed. Pt seen during a time of high acuity and national emergency pandemic while wearing PPE. Home Medications Medication Instructions Recorded Confirmed Type lisinopril 5 mg tablet 5 mg PO DAILY 12/29/19 12/10/21 History magnesium oxide 400 mg PO DAILY 12/29/19 12/10/21 History amiodarone 200 mg tablet 200 mg PO BID 02/25/21 12/10/21 History atorvastatin 40 mg tablet 40 mg PO HS 02/25/21 12/10/21 History furosemide 40 mg tablet 40 mg PO BID 02/25/21 12/10/21 History sildenafil 100 mg tablet 100 mg PO DAILY PRN 02/25/21 12/10/21 History acetaminophen 500 mg capsule 1,000 mg PO Q6H PRN cap 05/01/21 12/10/21 History metoprolol succinate 50 mg 200 mg PO HS 09/19/21 12/10/21 History tablet,extended release 24 hr Allergies Allergy/AdvReac Type Severity Reaction Status Date / Time No Known Allergies Allergy Verified 12/10/21 23:36 Past Med/Surg History Medical History Diabetes Erectile dysfunction History of placement of internal cardiac defibrillator Myocardial infarction x 3 Obesity Ventricular arrhythmia Surgical History History of cardiac cath Hx of hernia repair Social History Smoking Status: Former smoker Tobacco Type: Cigarettes Second Hand Exposure: No; Hx Alcohol Use: No Hx Substance Use: No Preferred Language: Persian Communication Ability: Effective Stand Up Comedian Required: No Beliefs That Will Affect Care: None marital status: alone Current Living Situation: Alone current occupational status: retired How many Children do You have: 0 Feels Safe at Home: Yes during the past year weight has: decreased > 10 lbs Physical Activity Frequency: Does not Exercise Do you think of yourself as: straight/heterosexual Gender Identity: Male Assistive Devices: None Review of Systems A total of 10 systems reviewed and were otherwise negative All systems reviewed & are unremarkable except as noted in HPI & below Physical Exam Vital Signs Vital Signs - 24 hr 12/10/21 22:42 12/10/21 23:41 12/11/21 01:51 Temperature 36.5 C Temperature Source Oral Pulse Rate 107 H Pulse Rate [Left Finger] 77 60 Respiratory Rate 18 18 18 Respiratory Effort / Characteristics Non-Labored Respiratory Depth Normal Normal Normal Respiratory Pattern Regular Blood Pressure 155/92 H Blood Pressure [Right Arm] 146/85 H 146/87 H Blood Pressure Mean 113 Blood Pressure Mean [Right Arm] 105 106 Blood Pressure Position Sitting Pulse Oximetry 85 L 99 98 Oxygen Delivery Method Room Air Room Air Sepsis Recent Fever Within 48 Hours No Sepsis New/Unexplained Change in Mental Status No Sepsis Action Taken by Nursing No Action Required 12/11/21 02:29 12/11/21 03:18 Temperature Temperature Source Pulse Rate Pulse Rate [Left Finger] 60 60 Respiratory Rate 16 18 Respiratory Effort / Characteristics Respiratory Depth Respiratory Pattern Blood Pressure Blood Pressure [Right Arm] 130/73 127/92 Blood Pressure Mean Blood Pressure Mean [Right Arm] 92 103 Blood Pressure Position Pulse Oximetry 94 99 Oxygen Delivery Method Room Air Room Air Sepsis Recent Fever Within 48 Hours Sepsis New/Unexplained Change in Mental Status Sepsis Action Taken by Nursing GENERAL: alert, well appearing, well nourished, no distress, non-toxic EYE EXAM: normal conjunctiva, PERRL and EOM's grossly intact OROPHARYNX: no exudate, no erythema, lips, buccal mucosa, and tongue normal and mucous membranes are moist NECK: supple, no nuchal rigidity, no adenopathy, non-tender LUNGS: Clear to auscultation. Normal chest wall mechanics, no w/r/r HEART: no murmurs, S1 normal and S2 normal, incision noted left anterior superior chest wall consistent with pacer/AICD ABDOMEN: abdomen soft, non-tender, normo-active bowel sounds, no masses, no rebound or guarding. BACK: Back is symmetrical on inspection and there is no deformity, no midline tenderness, no CVA tenderness. SKIN: no rashes and no bruising UPPER EXTREMITIES: upper extremities are grossly normal. FROM, nml pulses b/l. LOWER EXTREMITIES: 3+ b/l pitting edema. FROM, nml pulses b/l. Compression stockings in place. NEURO EXAM: Normal sensorium, cranial nerves II-XII grossly intact, normal speech, no gross weakness of arms, no gross weakness of legs. Gross sensation intact. Course Course 0155: Discussed with Dr. Campbell, urology. No need for emergent intervention or transfer at this time. Does feel admission for his THANH and continued monitoring of hematuria is reasonable. Given patient's complicated past medical history including cardiac history patient would need to be cautiously rehydrated. Administered Medications Discontinued Medications Acetaminophen (Ofirmev) 1,000 mg in 100 mls @ 400 mls/hr IV NOW STA Stop: 12/11/21 00:36 Last Admin: 12/11/21 00:26 Dose: Not Given Documented by: [id number] Medical Decision Making Differential Diagnosis Differential: UTI, Urethritis, Pyelonephritis, STI, Herpetic, Hyperglycemia, Yeast, Hemorrhagic Cystitis, amongst other pathologies entertained. Medical Records Attestation: I reviewed the patient's medical records. Home Medications Current Medication List: was personally reviewed by me Laboratory Data Attestation: I reviewed the patient's lab results. Result diagrams: 12/10/21 23:19 12/10/21 23:19 Lab Results 12/10/21 12/10/21 12/10/21 Range/Units 23:19 23:19 23:19 WBC 7.23 (4.8-10.8) K/uL RBC 4.43 L (4.7-6.1) M/uL Hgb 14.0 (14.0-18.0) g/dL Hct 43.4 (42-52) % MCV 98.0 (80-100) fL MCH 31.6 (25-34) pg MCHC 32.3 (32-36) g/dL RDW Std Deviation 47.8 H (36.4-46.3) fL RDW Coeff of Adriana 13.3 (11.5-14.5) % Plt Count 197 (130-400) K/uL MPV 11.7 H (7.4-10.4) fL Immature Gran % (Auto) 0.6 % Neut % (Auto) 63.4 % Lymph % (Auto) 21.9 % [place] % (Auto) 11.9 % Eos % (Auto) 2.1 % Baso % (Auto) 0.1 % Neut # (Auto) 4.59 (1.4-6.5) K/uL Lymph # (Auto) 1.58 (1.2-3.4) K/uL [place] # (Auto) 0.86 H (0.11-0.59) K/uL Eos # (Auto) 0.15 (0-0.5) K/uL Baso # (Auto) 0.01 (0-0.2) K/uL Immature Gran # (Auto) 0.04 H (0.00-0.02) K/uL PT 11.1 (9.0-12.0) Seconds INR 1.0 (0.9-1.1) Sodium 137 (136-145) mmol/L Potassium 4.7 (3.5-5.1) mmol/L Chloride 98 (98-107) mmol/L Carbon Dioxide 31 (21-32) mmol/L Anion Gap 8 (3-11) BUN 39 H (6-23) mg/dl Creatinine 2.16 H (0.6-1.4) mg/dl Est Cr Clr Drug Dosing 46.3 ml/min Est GFR ( Amer) 34.7 ml/min Est GFR (Non-Af Amer) 29.9 ml/min BUN/Creatinine Ratio 18.1 (10-20) Glucose 95 (70-99(Fasting)) mg/dl Calcium 9.1 (8.5-10.1) mg/dl Total Bilirubin 0.5 (0.2-1.0) mg/dl AST 20 (13-39) U/L ALT 15 (7-52) U/L Alkaline Phosphatase 105 H (34-104) U/L Total Protein 8.3 (6.0-8.3) gm/dl Albumin 4.3 (3.4-5.0) gm/dl Globulin 4.0 (2.5-4.0) gm/dl Albumin/Globulin Ratio 1.1 (0.9-2) Urine Color Urine Appearance (Clear) Urine pH (4.5-7.5) Ur Specific [place] (1.000-1.030) Urine Protein (Negative) Urine Glucose (UA) (Negative) Urine Ketones (Negative) Urine Blood (Negative) Urine Nitrite (Negative) Urine Bilirubin (Negative) Urine Urobilinogen (Negative) Ur Leukocyte Esterase (Negative) Urine WBC (Auto) (0-5) /hpf Urine RBC (Auto) (0-4) /hpf U Hyaline Cast (Auto) (0-5) /lpf U Epithel Cells (Auto) (0-5) /lpf Urine Bacteria (Auto) (Negative) SARS-CoV-2, RNA, NAAT (NEGATIVE) 12/11/21 12/11/21 Range/Units 00:16 03:15 WBC (4.8-10.8) K/uL RBC (4.7-6.1) M/uL Hgb (14.0-18.0) g/dL Hct (42-52) % MCV (80-100) fL MCH (25-34) pg MCHC (32-36) g/dL RDW Std Deviation (36.4-46.3) fL RDW Coeff of Adriana (11.5-14.5) % Plt Count (130-400) K/uL MPV (7.4-10.4) fL Immature Gran % (Auto) % Neut % (Auto) % Lymph % (Auto) % [place] % (Auto) % Eos % (Auto) % Baso % (Auto) % Neut # (Auto) (1.4-6.5) K/uL Lymph # (Auto) (1.2-3.4) K/uL [place] # (Auto) (0.11-0.59) K/uL Eos # (Auto) (0-0.5) K/uL Baso # (Auto) (0-0.2) K/uL Immature Gran # (Auto) (0.00-0.02) K/uL PT (9.0-12.0) Seconds INR (0.9-1.1) Sodium (136-145) mmol/L Potassium (3.5-5.1) mmol/L Chloride (98-107) mmol/L Carbon Dioxide (21-32) mmol/L Anion Gap (3-11) BUN (6-23) mg/dl Creatinine (0.6-1.4) mg/dl Est Cr Clr Drug Dosing ml/min Est GFR ( Amer) ml/min Est GFR (Non-Af Amer) ml/min BUN/Creatinine Ratio (10-20) Glucose (70-99(Fasting)) mg/dl Calcium (8.5-10.1) mg/dl Total Bilirubin (0.2-1.0) mg/dl AST (13-39) U/L ALT (7-52) U/L Alkaline Phosphatase (34-104) U/L Total Protein (6.0-8.3) gm/dl Albumin (3.4-5.0) gm/dl Globulin (2.5-4.0) gm/dl Albumin/Globulin Ratio (0.9-2) Urine Color Dark Yellow Urine Appearance Cloudy A (Clear) Urine pH 5.0 (4.5-7.5) Ur Specific [place] 1.020 (1.000-1.030) Urine Protein Trace H (Negative) Urine Glucose (UA) Negative (Negative) Urine Ketones Trace H (Negative) Urine Blood 3+ H (Negative) Urine Nitrite Negative (Negative) Urine Bilirubin Negative (Negative) Urine Urobilinogen Negative (Negative) Ur Leukocyte Esterase Trace H (Negative) Urine WBC (Auto) 1-5 (0-5) /hpf Urine RBC (Auto) >30 H (0-4) /hpf U Hyaline Cast (Auto) 1-5 (0-5) /lpf U Epithel Cells (Auto) 5-10 H (0-5) /lpf Urine Bacteria (Auto) Negative (Negative) SARS-CoV-2, RNA, NAAT NEGATIVE (NEGATIVE) Imaging Data Radiologist's Impression: CT abdomen and pelvis without contrast: The previously noted hyperdense crescentic presumed subcapsular hematoma involving the left kidney remains, now appearing heterogenous predominantly hypodense internally. Detailed evaluation is limited without contrast. However, subtle acute on chronic hemorrhagic components are difficult to en tirely exclude. However, this finding may also be seen with slowly resolving and liquefying hemorrhagic products. The diameter of the perinephric collection measures 4.2 cm from 4.4 cm previously at a comparable level. There is also improvement in the perinephric fat stranding. No hydronephrosis or nephrolithiasis identified bilaterally. No ureteral stones. No bladder calcifications. No bowel obstruction. No free intraperitoneal fluid or pneumoperitoneum. Layering hyperdensity in the gallbladder is presumed to hyperdense sludge or granular gallstones, similar. No CT evidence for gall bladder wall thickening or biliary dilatation. The unenhanced liver, pancreas, spleen and adrenal glands are unremarkable. Bladder is unremarkable. No acute osseous or significant overlying soft tissue abnormality. Interval resolution of the small left pleural effusion. Radiologist: Jc Culver MD MDM Narrative An order was placed for continuous cardiac monitoring. The monitor shows a rate of _60__ with _paced_ rhythm. This is a 71-year-old male presents due to concern for hematuria. Patient with known perinephric hematoma concern for possible occult mass that has been evaluated by urology and they are monitoring this conservatively. No change in pain, denied any other evolving symptoms. No other symptoms to suggest occult infection. Labs drawn and sent and showed a normal H&H. Creatinine elevated compared to prior levels. Patient does take several medications that are renally processed including diuretics. UA with hematuria, no evidence of infection. CT as read by outside radiology group shows overall decrease in perinephric hematoma although because this was done without contrast, they cannot exclude occult acute on chronic hemorrhage. No evidence of obstructive uropathy. Given patient's ongoing issues with the perinephric hematoma and recurrent hematuria and THANH, case discussed with on-call [facility] urology. No need for urgent transfer or intervention at this time. Recommend monitoring to help improve THANH and repeat H&H. If patient has persistent or worsening hematuria, develops drop in H&H, fevers, worsening pain, they should be recontacted to discuss possible additional intervention or transfer. Case discussed with hospitalist. Impression & Plan Hematuria, THANH (acute kidney injury), Perinephric hematoma Discharge Plan Visit Data Chief Complaint: Urinary Symptoms Stated Complaint: BLOOD IN URINE, L SIDE FLANK IRRITATION ED Provider: Jo-Ann Resendiz Discharge Problem: Hematuria, THANH (acute kidney injury), Perinephric hematoma Forms Stand Alone Forms: [facility] Prescriptions Prescriptions: No Action atorvastatin 40 mg tablet 40 mg PO HS RF: 0 sildenafil 100 mg tablet 100 mg PO DAILY PRN (Reason: Erectile Dysfunction) RF: 0 amiodarone 200 mg tablet 200 mg PO BID RF: 0 furosemide 40 mg tablet 40 mg PO BID RF: 0 acetaminophen 500 mg capsule 1,000 mg PO Q6H PRN (Reason: Pain) RF: 0 lisinopril 5 mg Tablet 5 mg PO DAILY RF: 0 magnesium oxide 400 mg magnesium Tablet 400 mg PO DAILY RF: 0 metoprolol succinate 50 mg tablet extended release 24 hr 200 mg PO HS RF: 0 Referrals Referrals: Kd Castellon MD [Primary Care Provider] - Discharge Problem: Hematuria Qualifiers: Hematuria type: gross Qualified Code(s): R31.0 - Gross hematuria
[2021-12-10 23:56] LABS: Basophils # (auto) 0.01 K/uL (0-0.2); Basophils % (auto) 0.1 %; Eosinophils # (auto) 0.15 K/uL (0-0.5); Eosinophils % (auto) 2.1 %; Hematocrit (blood only) 43.4 % (42-52); Immature Granulocytes # (auto) 0.04 K/uL (0.00-0.02); Immature Granulocytes % (auto) 0.6 %; Lymphocytes # (auto) 1.58 K/uL (1.2-3.4); Lymphocytes % (auto) 21.9 %; Mean Corpuscular Hemoglobin 31.6 pg (25-34); Mean Corpuscular Hgb Conc 32.3 g/dL (32-36); Mean Platelet Volume 11.7 fL (7.4-10.4); Monocytes # (auto) 0.86 K/uL (0.11-0.59); Monocytes % (auto) 11.9 %; Neutrophils # (auto) 4.59 K/uL (1.4-6.5); Neutrophils % (auto) 63.4 %; Platelet Count 197 K/uL (130-400); RDW Coefficient of Variation 13.3 % (11.5-14.5); RDW Standard Deviation 47.8 fL (36.4-46.3); Red Blood Count 4.43 M/uL (4.7-6.1); White Blood Count 7.23 K/uL (4.8-10.8)
[2021-12-10 23:57] LABS: Prothrombin Time 11.1 Seconds (9.0-12.0)
[2021-12-11] MEDS ORDERED: ACETAMINOPHEN 1,000 MG/100 ML VIAL IV STA (00:22)
[2021-12-11] MEDS ORDERED: SODIUM CHLORIDE 0.9% 1000ML 1,000 ML IV SCH ×2 (00:30→05:30)
[2021-12-11 00:51] LABS: Albumin Globulin Ratio 1.1 (0.9-2); Albumin Level 4.3 gm/dl (3.4-5.0); BUN Creatinine Ratio 18.1 (10-20); Bilirubin,Total 0.5 mg/dl (0.2-1.0); Calcium 9.1 mg/dl (8.5-10.1); Creatinine Clr Calc Pharmacy 46.3 ml/min; Est GFR (African American) 34.7 ml/min; Est GFR (Non-African American) 29.9 ml/min; Potassium 4.7 mmol/L (3.5-5.1); Total Protein 8.3 gm/dl (6.0-8.3)
[2021-12-11 01:24] LABS: Appearance Urine Cloudy (Clear); Bacteria Urine Automated Negative (Negative); Bilirubin Urine Negative (Negative); Blood Urine 3+ (Negative); Color Urine Dark Yellow; Glucose Urine UA Negative (Negative); Ketones Urine Trace (Negative); Leukocyte Esterase Urine Trace (Negative); Nitrite Urine Negative (Negative); Protein Urine Trace (Negative); RBC Urine Automated >30 /hpf (0-4); Urobilinogen Urine Negative (Negative)
[2021-12-11] MEDS ORDERED: ONDANSETRON INJ 2 MG/ML 2 ML VIAL IV PRN (05:30)
[2021-12-11] MEDS ORDERED: ACETAMINOPHEN 325 MG TAB PO PRN (05:30)
[2021-12-11] MEDS ORDERED: POLYETHYLENE (MIRALAX) 17 GM PACK PO PRN (05:30)
[2021-12-11] MEDS ORDERED: NITROGLYCERIN SL 0.4 MG/TAB TAB SL PRN (05:30)
[2021-12-11] MEDS ORDERED: GLUCOSE 40% GEL 15 GM TUBE PO PRN (05:45)
[2021-12-11] MEDS ORDERED: GLUCAGON FOR INJ 1 MG VIAL IM PRN (05:45)
[2021-12-11] MEDS ORDERED: CARBOHYDRATES FOR HYPOGLYCEMIA PO PRN (05:45)
[2021-12-11] MEDS ORDERED: GLUCOSE 10 TABS/TUBE PO PRN (05:45)
[2021-12-11] MEDS ORDERED: DEXTROSE 50% 50 ML SYRINGE IV PRN (05:45)
--- NOTE | 2021-12-11 06:17 | Urology Consultation ---
Date of Consultation December 11, 2021 Assessment & Plan (1) Hematuria: Patient has been admitted on the hospitalist service. Concerning the patient's perinephric hematoma we recommend proceeding as follows: Patient follows with Dr. Yasmany Campbell of [facility] urology as an outpatient. The treating emergency room physician has discussed with him and he did not feel any active intervention was required. He felt the patient should be admitted for evaluation of his acute kidney injury which the hospitalist have performed. He also notes that the patient may require biopsy at some point secondary to his hematuria. Would recommend following serial hemoglobin and hematocrits to ensure there is not a precipitous drop in his hemoglobin and hematocrit Avoid anticoagulants and antiplatelets If patient develops recurrent hematuria with inability to void a Browning catheter can be placed and irrigation can be attempted, but I stated the patient's hematuria has cleared for the present time Secondary to acute kidney injury would avoid nephrotoxic medications Remainder of plan as directed by the primary service History of Present Illness Reason for Consultation: Hematuria Attending Physician: Dina Deleon, History of Present Illness This is a 71-year-old male who is known to our service. The patient was seen in August 2021 at [facility] secondary to left-sided flank pain. During that visit the patient had flank pain that radiated to the front of his abdomen. He did not have any hematuria during that time. He did not have any injury or trauma to that area as well. He was seen in the emergency department where patient was noted to have a subcapsular hematoma of the left k idney that measure approximately 4.4 cm in thickness with noted mass-effect upon the left kidney. Patient was treated with a conservative manner and he was instructed to avoid anticoagulants and antiplatelet agents. Serial hemoglobin and hematocrits were followed. At that time it was felt that if patient developed a precipitous drop in his hemoglobin hematocrit transfer to tertiary care center for interventional radiology and potential embolization should be undertaken. He presented to the emergency department today secondary to cute onset of gross hematuria. Patient says that last evening he voided blood that was dark red. He notes that he subsequently voided where his urine was only blood-tinged and then finally he peed while he was in the hospital where he noted that his urine was now clear. He denies passing any blood clots. He denies any dysuria. He denies any back or flank pain. He denies any falls or trauma. He denies any recent illnesses. He denies any fevers, shakes, chills. He denies any nausea or vomiting. No abdominal pain was reported. The patient denies taking any anticoagulants or antiplatelet medications. 's arrival hospital patient has a CT scan of the abdomen and pelvis. There is left perinephric fat collection again noted which measures approximate 4.2 cm x 4.4 cm. Hydronephrosis or nephrolithiasis was noted. Interpreting radiologist felt that this was comparable to the previously noted subcapsular renal hematoma during his previous admission. He did undergo labs were CBC revealed white blood cell count, hemoglobin, hematocrit, and platelet count were all normal. Coagulation studies were noted to be normal. Chemistry profile showed sodium and potassium were normal. His BUN and creatinine were elevated at 39 and 2.1. Urinalysis was performed and was not indicative of infection. A COVID test was negative. Since admission to the hospital the patient notes that he has voided and his urine is now clear. He was in no distress and had no pain at the time of my interview. Allergies Allergy/AdvReac Type Severity Reaction Status Date / Time No Known Allergies Allergy Verified 12/10/21 23:36 Home Medications Medication Instructions Recorded Confirmed Type lisinopril 5 mg tablet 5 mg PO DAILY 12/29/19 12/10/21 History magnesium oxide 400 mg PO DAILY 12/29/19 12/10/21 History amiodarone 200 mg tablet 200 mg PO BID 02/25/21 12/10/21 History atorvastatin 40 mg tablet 40 mg PO HS 02/25/21 12/10/21 History furosemide 40 mg tablet 40 mg PO BID 02/25/21 12/10/21 History sildenafil 100 mg tablet 100 mg PO DAILY PRN 02/25/21 12/10/21 History acetaminophen 500 mg capsule 1,000 mg PO Q6H PRN cap 05/01/21 12/10/21 History metoprolol succinate 50 mg 200 mg PO HS 09/19/21 12/10/21 History tablet,extended release 24 hr Patient History Medical History Diabetes Erectile dysfunction History of placement of internal cardiac defibrillator Myocardial infarction x 3 Obesity Ventricular arrhythmia Surgical History History of cardiac cath Hx of hernia repair Social History Smoking Status: Former smoker Tobacco Type: Cigarettes Second Hand Exposure: No; Do You Dip or Chew Tobacco: Yes; Tobacco Cessation Education Requested by Patient: No Hx Alcohol Use: No Hx Substance Use: No Preferred Language: Hebrew Communication Ability: Effective Mine Geologist Required: No Beliefs That Will Affect Care: None marital status: alone Current Living Situation: Alone current occupational status: retired How many Children do You have: 0 Other Information That Helps Us Care for You: No Feels Safe at Home: Yes Safety Concerns: Feels Safe At This Time during the past year weight has: decreased > 10 lbs Physical Activity Frequency: Does not Exercise Do you think of yourself as: straight/heterosexual Gender Identity: Male Assistive Devices: Cane, Denture - Upper and Glasses Review of Systems Constitutional: no fever and no chills Eyes: no eye pain Ear, Nose, Mouth, Throat: no ear pain and no sore throat Respiratory: no cough and no dyspnea Cardiovascular: no chest pain Gastrointestinal: no abdominal pain, no nausea and no vomiting Genitourinary: + as per Subjective / HPI and + hematuria; no dysuria or no flank pain Musculoskeletal: no back pain Integumentary: no rash Neurologic: no localized weakness Physical Exam Constitutional: WD/WN, vitals as above Eyes: no conjunctival abnormality ENMT: Ears: no hearing impairment and no external ear abnormality Mouth: no oropharynx abnormality Neck: trachea midline Respiratory: normal respiratory effort; no respiratory distress and no labored breathing Cardiovascular: Rate/Rhythm: regular rate and regular rhythm Gastrointestinal (Abdomen): Abdomen is rotund. It is soft and nontender to palpation. It is nondistended. Musculoskeletal: No calf tenderness Skin: no rashes Neurologic: moves all extremities Psychiatric: A+Ox3, euthymic affect Genitourinary: No CVA tenderness with percussion bilaterally. There is no evidence of flank ecchymosis or hematoma. Results & Data ([facility]) Vital Signs (Past 12 Hours) Vital Signs Temp Pulse Pulse Resp BP BP Pulse Ox 12/11/21 05:31 36.3 C L 68 19 119/84 98 12/11/21 05:20 36.3 C L 68 19 119/84 98 12/11/21 05:02 60 18 132/80 95 12/11/21 04:30 60 18 123/74 97 12/11/21 04:00 60 20 121/75 98 12/11/21 03:18 60 18 127/92 99 12/11/21 02:29 60 16 130/73 94 12/11/21 01:51 60 18 146/87 H 98 12/10/21 23:41 77 18 146/85 H 99 12/10/21 22:42 36.5 C 107 H 18 155/92 H 85 L PG Care Time/CCT Total # of Minutes Spent Total Time Spent with Patient: Total time spent is greater than 50% in coordination of care (as documented) at patient's floor/unit and/or counseling patient: Coding Level of Care Code 24973 Inpt Consult Level 5 Diagnoses Hematuria R31.0 Hematuria type: gross (1) Hematuria Hematuria type: gross Qualified Code(s): R31.0 - Gross hematuria
--- NOTE | 2021-12-11 07:28 | CT Scan Report ---
CT abd pelvis wo con CLINICAL HISTORY: hematuria, left flank pain, hx renal hematoma COMPARISON STUDY: 09/22/2021 CT DOSE: 2127.84 mGy.cm TECHNIQUE: Standard CT of the Abdomen and Pelvis was performed without IV contrast. The patient did not receive oral contrast. A dose lowering technique was utilized adhering to the principles of HÉCTOR Conklin. FINDINGS: Lung base: The lung bases are clear. There has been interval resolution of small left pleural effusio n. Abdominal cavity: There is no evidence for abdominal mass, adenopathy or ascites. Small umbilical her francesco is again seen. Small bilateral inguinal hernias are again seen with retroperitoneal fat. No bowel loop herniation is seen. Liver: The liver is homogeneous in attenuation on these limited noncontrast images.. Spleen: The spleen is homogeneous in attenuation on these limited noncontrast images. Pancreas: The pancreas is homogeneous in attenuation on these limited noncontrast images. Gall Bladder: There is again evidence for cholelithiasis with no CT evidence for acute cholecystitis. Adrenal glands: The adrenal glands are normal in size and attenuation on these limited noncontrast im ages. Kidneys: The kidneys are homogeneous in attenuation on these limited noncontrast images. Compared to previous examination, there has been interval decrease in left perinephric hematoma. However, is not well evaluated on the current noncontrast study. There is no evidence for acute hemorrhage. There is no evidence for renal calculus or hydronephrosis bilaterally. Minimal chronic perinephric stranding i s present, left greater than right. Bowel: The bowel loops are normally placed within the abdomen and pelvis without evidence for dilatat ion or obstruction. There is no evidence for mass lesion. There are no inflammatory changes present. There is no evidence for free air. Bladder: There is no evidence for focal bladder wall thickening, calculus or diverticulum. : There is no evidence for pelvic mass or adenopathy. Vasculature: There is no evidence for focal aneurysmal dilatation of the abdominal aorta. Mild athero sclerotic calcification is present. Osseous structures: There is no acute osseous pathology. Degenerative changes are again seen within t he spine. IMPRESSION: 1. Compared to the previous examination, there is a stable to slightly improved left subcapsular merritt nora with no evidence for acute hemorrhage. There is no evidence for calculus or hydronephrosis. 2. Follow-up examination with contrast or MRI is again recommended to exclude underlying pathology. 3. No other evidence for acute intra-abdominal or pelvic abnormality on these limited noncontrast monalisa ges. 4. There is again evidence for cholelithiasis with no CT evidence for acute cholecystitis. 5. Additional nonacute findings are delineated above. ACT 112: Negative or not required by law. Electronically signed by: Ramesh Rivero M.D. 12/11/2021 7:26 AM
[2021-12-11] MEDS ORDERED: INSULIN ASPART PER UNIT SC SCH ×4 (07:30→12:30)
--- NOTE | 2021-12-11 08:05 | History and Physical Report ---
DATE OF ADMISSION: 12/10/2021. CHIEF COMPLAINT: Hematuria. HISTORY OF PRESENT ILLNESS: This is a 71-year-old male with past medical history significant for hyperlipidemia, prediabetes, history of nonischemic cardiomyopathy, chronic systolic CHF, history of ventricular tachycardia, status post AICD, history of MT, history of obesity, chronic kidney disease stage III, tobacco use disorder, who presents with hematuria. The patient was here in August, was admitted on 09/19/2021 with hematuria and found to have large acute left renal subcapsular hematoma . The patient was monitored in the hospital. Repeat CT scan on 09/22/2021 showed a slight decrease in size of the hematoma, seen by urology, and as the patient remained stable, he was discharged to follow outpatient with urology. He also was treated with IV cefeime for possible complicated UTI for 5 days. Urine culture did not grow any growth at that time. His creatinine peaked to 2.77 during that admission. At one point of time, as he received fluids for THANH and diuretics were held, he developed mild volume overload and received supplemental oxygen, but with 2 doses of IV Lasix 20 mg, hypoxia resolved. His creatinine was 1.5 on discharge. His echo during last admission showed EF of 40% to 45%. On prior echo in 2019, EF was 32% to 35%. The patient seemed to be following with [facility] as outpatient. There is some suspicion of underlying mass that is causing the bleeding. They could not do MRI because of pacemaker. Plan to follow the repeat CAT scans for now. The patient today again developed gross hematuria, that is the reason he came here and repeat CAT scan today on preliminary report is showing that hematoma has been decreasing in size . ER physician talked to [facility] urology it operations manager, and was recommended to do observation for now and no transfer at this time. They recommended to watch H and H, to improve THANH. If there is persistent or worsening hematuria, or drops in H and H, fevers or worsening pain, we can recontact them for possible transfer. Currently, the patient says his urine is lightening up. Denies any flank pain or any burning micturition. He is somewhat hard of hearing, resting comfortably, hemodynamically stable. Denies any chest pain, no shortness of breath, no cough, no headache, no neck pain. No blurred visions, no earache, no runny nose, no sore throat. Appetite is okay. No difficulty swallowing. No nausea, no abdominal pain. Ambulating okay. He is not taking his aspirin, which was stopped last admission. ALLERGIES: No known drug allergies. PAST MEDICAL HISTORY: As mentioned above. 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 MEDICATIONS: Currently, the patient is on Tylenol 1000 mg p.o. q. 6 hours p.r.n., amiodarone 200 mg p.o. b.i.d., atorvastatin 40 mg p.o. at bedtime, Lasix 40 mg p.o. b.i.d., lisinopril 5 mg p.o. daily, magnesium oxide 400 mg p.o. daily, metoprolol succinate 200 mg p.o. at bedtime, sildenafil 100 mg p.r.n. FAMILY HISTORY: Significant for sister has diabetes, heart disorder; father had CAD, at age of 29 of MT; mother had MT at age of 60, two open heart surgeries. SOCIAL HISTORY: Former smoker, who quit in 1995, smoked 1 pack a day for 10 years. No alcohol use. Currently, no drug use. REVIEW OF SYSTEMS: As per HPI. Rest of the review of systems is negative. PHYSICAL EXAMINATION: GENERAL: The patient is morbidly obese, not in acute distress. VITAL SIGNS: Temperature 36.5, pulse 60, respiratory rate 20, blood pressure 121/75, oxygen 98% on room air. HEENT: Pupils equal, round and reactive to light. Oral mucosa moist. LUNGS: No JVD, no neck masses. CARDIOVASCULAR: S1 and S2 heard. Regular rate and rhythm. No murmur, no gallop. RESPIRATORY SYSTEM: Normal AP diameter. No accessory muscle use. No wheezing, no crackles. ABDOMEN: Soft. Bowel sounds are present, nontender, no distention. CENTRAL NERVOUS SYSTEM: Cranial nerves II-XII grossly intact, nonfocal. EXTREMITIES: Mild pedal edema, no erythema seen. LABORATORY: WBC 7.2, hemoglobin 14, hematocrit 43.4, platelets 197. PT 11.1, INR 1. Sodium 137, potassium 4.7, chloride 98, bicarbonate 31, BUN 39, creatinine 2.1, serum glucose 95, calcium 9.1, total bilirubin 0.5, AST 20, ALT 15, alkaline phosphatase 105. Urinalysis, +3 blood, SARS-CoV-2 rapid test negative. IMAGING DATA: CT of abdomen and pelvis preliminary report without contrast, previously noted hyperdense crescentic presumed subcapsular hematoma involving the left kidney remains, now appearing heterogeneous, predominantly hypodense internally. Detailed evaluation is limited without contrast; however, subtle [id number] hemorrhagic complaints are difficult to entirely exclude. However, this finding may also be seen as low resolving, liquefying hemorrhagic products. The diameter of the perinephric collection measures 4.2 cm from 4.4 cm previously, at a comparable level. There are also improvements in the perinephric fat stranding. No hydronephrosis or nephrolithiasis identified bilaterally. No ureteral stones, no bladder calcifications. No bowel obstruction, no free intraperitoneal fluid or pneumoperitoneum. No CT evidence of gallbladder wall thickening or biliary dilatation. Interval resolution of small left pleural effusion. ASSESSMENT AND PLAN: This is a 71-year-old male who presents with hematuria. 1. Hematuria: The presented with a similar hematuria in August and found to have left renal hematoma. Following with [facility]. Today CAT scan is showing the hematoma is decreased in size, though because of lack of contrast could not evaluate for any acute component. ER talked to the [facility] it operations manager Urology. They recommend to observe here and watch and if the hematuria is not stopping or getting worsening or hemoglobin dropping or if the patient develops pain or fever, to recontact them for possible transfer. The patient says currently his hematuria is improving, his urine is getting md do resident urgent care. His hemoglobin is stable. He stopped taking the aspirin since last admission. Will observe in the hospital. Will also consult [facility] while the patient is in the hospital. There is question of underlying mass. Follow up with [facility]. 2. Acute kidney injury on chronic kidney disease stage III: Baseline creatinine around 1.5-1.6, presently with a creatinine of 2.1. Holding his Lasix and lisinopril. Getting gentle fluids. Monitor the labs. 3. Chronic systolic and diastolic congestive heart failure: Last echo on 09/24/2021, his EF was 40% to 45%. Grade 2 diastolic congestive heart failure. His echo in December 2019, EF was 30% to 35%. Currently, holding his Lasix. On metoprolol succinate. Monitor for any volume overload. Restart Lasix when the kidney function improves. 4. History of V-tach: On amiodarone, status post AICD. 5. History of myocardial infarction: On statin and metoprolol. Aspirin is held because of renal hematoma. 6. Morbid obesity: Needs counseling. 7. Hyperlipidemia: On statin 8. Prediabetes: Diabetic diet, insulin sliding scale while the patient is in the hospital. 9. Deep venous thrombosis prophylaxis: Sequential compression devices for now. DISPOSITION: Monitor in the med tele. PT/OT prior to discharge. Social Service to help with discharge planning. Level 1 full code. Job ID: [id number] [facility]
[2021-12-11] MEDS ORDERED: AMIODARONE 200 MG TAB PO SCH (09:00)
[2021-12-11] MEDS ORDERED: MAGNESIUM OXIDE 400 MG TAB PO SCH (09:00)
[2021-12-11] MEDS ORDERED: Nursing to Pharmacy Communication SCH ×2 (09:45→12:00)
[2021-12-11 10:31] LABS: BUN Creatinine Ratio 20.3 (10-20); Calcium 8.8 mg/dl (8.5-10.1); Creatinine Clr Calc Pharmacy 56.8 ml/min; Est GFR (African American) 42.7 ml/min; Est GFR (Non-African American) 36.8 ml/min; Potassium 4.2 mmol/L (3.5-5.1)
--- NOTE | 2021-12-11 10:55 | Discharge Summary ---
Date of Service December 11, 2021 Admission HPI Per Admitting Provider HISTORY OF PRESENT ILLNESS: This is a 71-year-old male with past medical history significant for hyperlipidemia, prediabetes, history of nonischemic cardiomyopathy, chronic systolic CHF, history of ventricular tachycardia, status post AICD, history of ID, history of obesity, chronic kidney disease stage III, tobacco use disorder, who presents with hematuria. The patient was here in August, was admitted on 09/19/2021 with hematuria and found to have large acute left renal subcapsular hematoma . The patient was monitored in the hospital. Repeat CT scan on 09/22/2021 showed a slight decrease in size of the hematoma, seen by urology, and as the patient remained stable, he was discharged to follow outpatient with urology. He also was treated with IV cefeime for possible complicated UTI for 5 days. Urine culture did not grow any growth at that time. His creatinine peaked to 2.77 during that admission. At one point of time, as he received fluids for THANH and diuretics were held, he developed mild volume overload and received supplemental oxygen, but with 2 doses of IV Lasix 20 mg, hypoxia resolved. His creatinine was 1.5 on discharge. His echo during last admission showed EF of 40% to 45%. On prior echo in 2019, EF was 32% to 35%. The patient seemed to be following with [facility] as outpatient. There is some suspicion of underlying mass that is causing the bleeding. They could not do MRI because of pacemaker. Plan to follow the repeat CAT scans for now. The patient today again developed gross hematuria, that is the reason he came here and repeat CAT scan today on preliminary report is showing that hematoma has been decreasing in size . ER physician talked to [facility] urology counter control operator, and was recommended to do observation for now and no transfer at this time. They recommended to watch H and H, to improve THANH. If there is persistent or worsening hematuria, or drops in H and H, fevers or worsening pain, we can recontact them for possible transfer. Currently, the patient says his urine is lightening up. Denies any flank pain or any burning micturition. He is somewhat hard of hearing, resting comfortably, hemodynamically stable. Denies any chest pain, no shortness of breath, no cough, no headache, no neck pain. No blurred visions, no earache, no runny nose, no sore throat. Appetite is okay. No difficulty swallowing. No nausea, no abdominal pain. Ambulating okay. He is not taking his aspirin, which was stopped last admission. Admission Exam Per Admitting Provider PHYSICAL EXAMINATION: GENERAL: The patient is morbidly obese, not in acute distress. VITAL SIGNS: Temperature 36.5, pulse 60, respiratory rate 20, blood pressure 121/75, oxygen 98% on room air. HEENT: Pupils equal, round and reactive to light. Oral mucosa moist. LUNGS: No JVD, no neck masses. CARDIOVASCULAR: S1 and S2 heard. Regular rate and rhythm. No murmur, no gallop. RESPIRATORY SYSTEM: Normal AP diameter. No accessory muscle use. No wheezing, no crackles. ABDOMEN: Soft. Bowel sounds are present, nontender, no distention. CENTRAL NERVOUS SYSTEM: Cranial nerves II-XII grossly intact, nonfocal. EXTREMITIES: Mild pedal edema, no erythema seen. Principal Diagnosis Blood in urine (hematuria) Acute kidney injury Discharge Exam CONSTITUTIONAL: WNWD, vitals as above, generally well-appearing, NAD, ambulating at baseline. EYES: normal conjunctivae, no scleral icterus ENT: external ear and nose normal, MMM NECK: trachea midline RESPIRATORY: clear to auscultation bilaterally, no crackles, rales or wheezes, normal respiratory effort CARDIOVASCULAR: regular rate and rhythm, S1 and 2 heard without murmurs, gallops or rubs, no JVD, no peripheral edema CHEST: inspection of chest was normal GASTROINTESTINAL: soft, nontender, ND, no guarding, no CVA tenderness bilaterally MUSCULOSKELETAL: strength 5/5 throughout, head is normocephalic and atraumatic SKIN: warm and dry NEUROLOGIC: CN 2-12 grossly intact, no sensory deficit, normal cognition, normal speech, no tremor PSYCHIATRIC: alert cooperative and oriented to person, place and time. Discharge Data Allergies Allergy/AdvReac Type Severity Reaction Status Date / Time No Known Allergies Allergy Verified 12/10/21 23:36 Consultations 12/11/21 03:05 ED Decision to Admit Stat 12/11/21 08:00 Consult Urology Routine Ordered Studies 12/10/21 23:13 CT abd pelvis wo con Urgent Hospital Course By CMS guidelines, a determination that the admission or continued stay is not medically necessary has been made by a member of the Utilization Review committee and a physician for this [facility] stay. Therefore, a Code 44 will be completed and the inpatient admission will be changed to outpatient. DO Pancho Total Time Total Time Spent Total Time Spent (In Minutes): 60 Discharge Plan Discharge Items Patient Disposition: Home - Self-Care Reason For Visit: HEMATURIA Discharge Diagnosis: Blood in urine (hematuria) Perinephric hematoma Acute kidney injury Condition on Discharge: Good Activity: Resume your previous activity Non-emergency contact: Primary Care Provider Call non-emergency contact if: you have any medication questions, your symptoms worsen, your pain is not controlled, your pain is worsening, your pain is unusual for you, your pain is concerning for you and you have a fever Follow-up/Referrals: Kd Castellon MD [Primary Care Provider] - Diet: Low Sodium (2gm) Addtl Attending Provider Instructions: Please reduce your furosemide (Lasix) by 50% on discharge today--only take the morning pill. Please also hold off on lisinopril until you have seen Dr. Castellon in follow-up and had repeat bloodwork (BMP) to check your kidney function. Please continue to follow-up with your Urologist, Dr. Campbell, as planned for follow-up of your perinephric hematoma (blood around the kidney). It is recommended that you follow-up with Dr. Castellon (PCP) in 1 week after discharge from the hospital. He may adjust your medications again depending on your bloodwork results in the next few days. It was a pleasure taking care of you! Please call if you have any questions or problems. You can reach a [facility] hospitalist on duty at [facility] 24 hours a day by calling [phone]. Take care of yourself. Dina Deleon DO [facility] Hospitalist Pending Studies at Discharge: No Stand-Alone Forms: My [facility] Medications and DC Order Prescriptions: Continued atorvastatin 40 mg tablet 40 mg PO HS RF: 0 sildenafil 100 mg tablet 100 mg PO DAILY PRN (Reason: Erectile Dysfunction) RF: 0 amiodarone 200 mg tablet 200 mg PO BID RF: 0 acetaminophen 500 mg capsule 1,000 mg PO Q6H PRN (Reason: Pain) RF: 0 magnesium oxide 400 mg magnesium Tablet 400 mg PO DAILY RF: 0 metoprolol succinate 50 mg tablet extended release 24 hr 200 mg PO HS RF: 0 Changed furosemide 40 mg tablet 40 mg PO QAM Qty: 0 RF: 0 Discontinued lisinopril 5 mg Tablet 5 mg PO DAILY RF: 0 Admission Data Admit Date/Time: 12/11/21 04:22 Attending Provider: Dina Deleon Admit Provider: Tyrone Lambert Primary Care Provider: Kd Castellon Other Providers: Tyrone Lambert ; Ruddy Gillespie
--- NOTE | 2021-12-11 11:06 | Communication Note ---
Date of Service: December 11, 2021 By CMS guidelines, a determination that the admission or continued stay is not medically necessary has been made by a member of the UR committee and a physic raf for this hospital stay, therefore a Code 44 will be completed and the Inpatient admission will be changed to outpatient. I could not add this to the H&P for some technical reason
--- NOTE | 2021-12-11 11:23 | Communication Note ---
Date of Service: December 11, 2021 By CMS guidelines, a determination that the admission or continued stay is not medically necessary has been made by a member of the UR committee and a physi prashant for this hospital stay, therefore a Code 44 will be completed and the Inpatient admission will be changed to outpatient. Fausto Dewey MD Member, Utilization Review Committee
[2021-12-11 12:13] LABS: Hematocrit (blood only) 40.9 % (42-52); Hemoglobin 13.6 g/dL (14.0-18.0)
[2021-12-11] MEDS ORDERED: ATORVASTATIN 40 MG TAB PO SCH (21:00)
[2021-12-11] MEDS ORDERED: METOPROLOL SUCC 50MG EXT REL TAB PO SCH (21:00)
== END 2021-12-11 17:48 | disposition home or self-care (01) ==
LOC: ED 22:36 → 2N 12-11 04:22 → INTOOBSV 12-11 04:22 → 2N 12-11 05:02

== ENCOUNTER 2023-02-07 09:29 | Inpatient (IN) ==
[2023-02-07] MEDS ORDERED: KETOROLAC TROMETHAMINE 15 MG/ML VIAL IV STA (09:59)
[2023-02-07 10:50] LABS: BUN Creatinine Ratio 15.8 (10-20); Calcium 8.9 mg/dl (8.6-10.3); Est GFR (African American) 33.5 ml/min; Est GFR (Non-African American) 28.9 ml/min; Potassium 4.4 mmol/L (3.5-5.1)
--- NOTE | 2023-02-07 11:09 | XRay Report ---
XR hip LT 2V w pelvis CLINICAL HISTORY: L hip pain COMPARISON STUDY: None. FINDINGS: No fracture or dislocation within the pelvis or hips. 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 The sacrum is intact. Degenerative changes within the lower lumbar spine. Soft tissues are unremarkable. IMPRESSION: No fracture or dislocation within the pelvis or hips. ACT 112: Negative or not required by law. Electronically signed by: Jonah Jenkins M.D. 02/07/2023 11:08 AM
--- NOTE | 2023-02-07 11:12 | XRay Report ---
XR chest 1V portable HISTORY: Shortness of breath. COMPARISON: Chest 09/23/2021. FINDINGS: No pneumothorax. No pleural effusions. The cardiac silhouette remains mildly enlarged. This left-sided pacemaker again noted. No new focal lung consolidations to suggest pneumonia. There is mi ld central pulmonary vascular congestion without overt edema. IMPRESSION: Cardiomegaly and mild congestive change. ACT 112: Negative or not required by law. Electronically signed by: Jonah Jenkins M.D. 02/07/2023 11:10 AM
[2023-02-07 11:52] LABS: Basophils # (auto) 0.02 K/uL (0-0.2); Basophils % (auto) 0.3 %; Eosinophils # (auto) 0.04 K/uL (0-0.50); Eosinophils % (auto) 0.5 %; Hematocrit (blood only) 40.3 % (42.0-52.0); Hemoglobin 13.4 g/dl (14.0-18.0); INR 1.1 (0.9-1.1); Immature Granulocytes # (auto) 0.03 K/uL (0.01-0.20); Immature Granulocytes % (auto) 0.4 %; Lymphocytes # (auto) 0.78 K/uL (1.2-3.4); Lymphocytes % (auto) 10.4 %; Mean Corpuscular Hemoglobin 31.8 pg (25.0-34.0); Mean Corpuscular Hgb Conc 33.3 g/dL (32.0-36.0); Mean Corpuscular Volume 95.7 fL (80.0-100.0); Mean Platelet Volume 12.1 fL (9.4-12.4); Monocytes # (auto) 1.24 K/uL (0.11-0.59); Monocytes % (auto) 16.6 %; Neutrophils # (auto) 5.36 K/uL (1.40-6.50); Neutrophils % (auto) 71.8 %; Partial Thromboplastin Time 28.6 Seconds (21.0-31.0); Platelet Count 163 K/uL (130-400); Prothrombin Time 11.6 Seconds (9.0-12.0); RDW Coefficient of Variation 13.4 % (11.5-14.5); RDW Standard Deviation 47.7 fL (36.4-46.3); Red Blood Count 4.21 M/uL (4.70-6.10); White Blood Count 7.47 K/ul (4.8-10.8)
[2023-02-07 12:15] LABS: HCO3 VBG 30 mmol/L; PCO2 VBG 48 mmHg (38-50); PO2 VBG 126 mmHg
[2023-02-07 13:07] LABS: Troponin I High Sensitivity 10.5 pg/ml (0-20)
[2023-02-07] MEDS ORDERED: FUROSEMIDE 40 MG/4 ML VIAL IV ONE (13:17)
--- NOTE | 2023-02-07 13:21 | Ultrasound Report ---
LEFT LOWER EXTREMITY VENOUS DOPPLER HISTORY: Left leg swelling. COMPARISON STUDY: None. FINDINGS: There is normal compressibility, flow, and augmentation within the visualized left lower ex tremity deep venous system. Of note, the left peroneal and anterior tibial veins were not well visual ized due to the patient's body habitus and subcutaneous edema. IMPRESSION: No DVT within the visualized left lower extremity. ACT 112: Negative or not required by law. Electronically signed by: Jonah Jenkins M.D. 02/07/2023 1:20 PM
[2023-02-07] MEDS ORDERED: ONDANSETRON INJ 2 MG/ML 2 ML VIAL IV PRN (13:38)
--- NOTE | 2023-02-07 13:44 | History & Physical Report ---
Date of Service February 07, 2023 Assessment & Plan (1) Acute on chronic systolic heart failure: Plan: LE swelling with pain and edema present on exam. Likely related to worsening swelling as he reports that removing his stockings helped his discomfort. He does report a weight gain, there is fluid on his CXR, and he has an elevated BNP with known h/o nonischemic cardiomyopathy with reduced EF. Echo today. Lasix 40mg IV in the ER. Will gauge response with strict I/Os. Browning discussed with patient including risks and he is amenable to this. Cardiology consultation. (2) Cellulitis of left leg: Plan: With superficial erythema moving proximally on the left lower leg, it is difficult to rule out a superimposed cellulitis. Starting empiric Rocephin. Noting no fevers, chills and no evidence of sepsis. He had prior venous stasis ulcers that are now healed up and closed. (3) Acute kidney injury superimposed on chronic kidney disease: Plan: creatinine is 2.2 with baseline around 1.5. This may be related to poor renal perfusion in heart failure. Cont with lasix therapy and repeat BMP in am. Hold lisinopril and renally dose meds as needed. Avoid contrast and other nephrotoxic substances such as NSAIDs. (4) Bladder cancer: Plan: followed by Urology, s/p surgery. He (5) Morbid obesity: Plan: BMI is 50. Lifestyle changes recommended for weight loss. (6) Abdominal hernia: Plan: Reports abdominal hernia with pain in the past several weeks. States hernia bulges out when he bends forward and seems to be reduced but is newly painful. He is morbidly obese and unable to give a clear history on this. CT a/p ordered for clarification. (7) Chronic venous insufficiency: Plan: LE swelling at baseline. Chronically uses Lasix 40mg PO BID and knee high SCDs. (8) Erectile dysfunction: Plan: Cont taldalafil per home regimen. (9) Recurrent ventricular tachycardia: Plan: s/p ICD. No report of this firing recently. EKG with v-paced rhythm. Cont monitoring on telemetry. (10) Status post implantation of automatic cardioverter/defibrillator (AICD): Plan: Heparin Full Code Dispo- to telemetry [facility] History of Present Illness Chief Complaint: LE swelling with left leg pain Primary Care Provider: Kd Castellon MD 72 yo M with chronic swelling in the lower extremities presents with posterior left leg pain since Thursday. He denies trauma and states that his compression stockings are causing the pain, described as a muscle cramp. Worse when he moves his leg at all, interfering with his ability to walk. He typically walks with a cane and lives alone. Niece is with him and does his shopping for him. Denies any issues with shortness of breath today. Denies use of oxygen at home. No fevers, chills No orthopnea. No chest pain Reports that he has a low appetite because of so many pills. He has been compliant with the Lasix 80mg PO daily. Feels the amiodarone is causing him to gain weight. Reports weight gain approx 25lbs over the past 6 weeks or so. Denies any dyspnea with exertion. From the best I can gather from him and his niece, who states she doesn't see him walk much, he can walk about 1.5 blocks with intermittent stopping at baseline. Allergies Allergy/AdvReac Type Severity Reaction Status Date / Time No Known Allergies Allergy Verified 02/07/23 13:37 Home Medications Medication Instructions Recorded Confirmed Type magnesium oxide 400 mg PO QAM 12/29/19 02/07/23 History amiodarone 200 mg tablet See Rx Instructions .Route .COMPLEX 02/25/21 02/07/23 History atorvastatin 40 mg tablet 40 mg PO HS 02/25/21 02/07/23 History acetaminophen 500 mg capsule 1,000 mg PO Q6H PRN Pain 05/01/21 02/07/23 History metoprolol succinate 50 mg 200 mg PO HS 09/19/21 02/07/23 History tablet,extended release 24 hr aspirin 81 mg tablet 81 mg PO QAM 02/07/23 02/07/23 History furosemide 40 mg tablet 40 mg PO BID 02/07/23 02/07/23 History lisinopril 5 mg tablet 5 mg PO .5:00PM 02/07/23 02/07/23 History tadalafil 5 mg tablet 5 mg PO DAILY@1700 02/07/23 02/07/23 History Past Med/Surg History Medical History THANH (acute kidney injury) Bladder cancer CKD (chronic kidney disease), stage III Diabetes Erectile dysfunction Hematuria History of placement of internal cardiac defibrillator Myocardial infarction x 3 Obesity Perinephric hematoma Ventricular arrhythmia Surgical History History of cardiac cath Hx of hernia repair Social History Smoking Status: Former smoker Tobacco Type: Cigarettes Second Hand Exposure: No; Do You Dip or Chew Tobacco: No; Tobacco Cessation Education Requested by Patient: No Hx Alcohol Use: No Hx Substance Use: No Preferred Language: Turkish Communication Ability: Effective Service Girl Required: No Beliefs That Will Affect Care: None marital status: alone Current Living Situation: Alone current occupational status: retired How many Children do You have: 0 Other Information That Helps Us Care for You: No Feels Safe at Home: Yes Safety Concerns: Feels Safe At This Time Diet: regular during the past year weight has: decreased > 10 lbs Physical Activity Frequency: Does not Exercise Do you think of yourself as: straight/heterosexual Gender Identity: Male Assistive Devices: Cane, Denture - Upper and Glasses Review of Systems Review of Systems: All systems were reviewed and negative except as indicated on HPI above. Physical Exam Physical Exam: CONSTITUTIONAL: obese, vitals as above, generally well-appearing, NAD EYES: normal conjunctivae, no scleral icterus ENT: external ear and nose normal, MMM NECK: trachea midline RESPIRATORY: clear to auscultation bilaterally, no crackles, rales or wheezes, normal respiratory effort CARDIOVASCULAR: regular rate and rhythm, S1 and 2 heard without murmurs, gallops or rubs, no JVD, 2+ pitting edema in lower extremities. Exam is limited 2/2 obese habitus. CHEST: inspection of chest was normal GASTROINTESTINAL: normal bowel sounds, soft, nontender, nondistended. MUSCULOSKELETAL: generalized weakness. There is pain with left knee flexion that is not present with his right leg. head is normocephalic and atraumatic SKIN: warm and dry, erythema on distal bilateral extremities with some additional erythema extending more proximally on the left. NEUROLOGIC: CN 2-12 grossly intact, no sensory deficit, normal cognition, normal speech, no tremor PSYCHIATRIC: alert cooperative and oriented to person, place and time. Euthymic mood, makes good eye contact, language grossly intact, recent and remote memory grossly intact. Poor historian. Would say he was taking aspirin and then say he wasn't and clarify that "I was at one time." Difficult to have him drill down on history around the pain, and appears irritated with questioning. Results & Data Results & Data Vital Signs (Past 12 Hours) Vital Signs Temp Pulse Resp BP BP Pulse Ox O2 Del Method 02/07/23 12:30 61 19 96 02/07/23 12:00 63 14 98 02/07/23 11:30 66 31 H 96 02/07/23 11:00 64 22 97 02/07/23 10:30 61 17 98 02/07/23 10:02 62 17 92 02/07/23 10:24 18 119/75 89 L Nasal Cannula 02/07/23 10:09 60 02/07/23 09:59 60 16 96 02/07/23 09:36 36.6 C 67 18 137/68 94 O2 Flow Rate 02/07/23 12:30 02/07/23 12:00 02/07/23 11:30 02/07/23 11:00 02/07/23 10:30 02/07/23 10:02 02/07/23 10:24 2 02/07/23 10:09 02/07/23 09:59 02/07/23 09:36 Laboratory Results Short CBC 02/07/23 Range/Units 10:15 WBC 7.47 (4.8-10.8) K/ul Hgb 13.4 L (14.0-18.0) g/dl Hct 40.3 L (42.0-52.0) % Plt Count 163 (130-400) K/uL BMP 02/07/23 10:15 Sodium 136 Potassium 4.4 Chloride 96 L Carbon Dioxide 35 H BUN 35 H Creatinine 2.21 H Glucose 112 H Calcium 8.9 Cardiac Enzymes 02/07/23 Range/Units 10:15 Total Creatine Kinase 547 H (30-223) U/L Diagnostic Findings Venous Doppler Study 02/07/23 09:59 LEFT LOWER EXTREMITY VENOUS DOPPLER HISTORY: Left leg swelling. COMPARISON STUDY: None. FINDINGS: There is normal compressibility, flow, and augmentation within the visualized left lower extremity deep venous system. Of note, the left peroneal and anterior tibial veins were not well visualized due to the patient's body habitus and subcutaneous edema. IMPRESSION: No DVT within the visualized left lower extremity. ACT 112: Negative or not required by law. Electronically signed by: Jonah Jenkins M.D. 02/07/2023 1:20 PM Hip/Pelvis X-Ray 02/07/23 10:00 XR hip LT 2V w pelvis CLINICAL HISTORY: L hip pain COMPARISON STUDY: None. FINDINGS: No fracture or dislocation within the pelvis or hips. 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 The sacrum is intact. Degenerative changes within the lower lumbar spine. Soft tissues are unremarkable. IMPRESSION: No fracture or dislocation within the pelvis or hips. ACT 112: Negative or not required by law. Electronically signed by: Jonah Jenkins M.D. 02/07/2023 11:08 AM Chest X-Ray 02/07/23 10:32 XR chest 1V portable HISTORY: Shortness of breath. COMPARISON: Chest 09/23/2021. FINDINGS: No pneumothorax. No pleural effusions. The cardiac silhouette remains mildly enlarged. This left-sided pacemaker again noted. No new focal lung consolidations to suggest pneumonia. There is mild central pulmonary vascular congestion without overt edema. IMPRESSION: Cardiomegaly and mild congestive change. ACT 112: Negative or not required by law. Electronically signed by: Jonah Jenkins M.D. 02/07/2023 11:10 AM Code Status & VTE Plan Code Status Full Code in the event of cardiac or respiratory arrest VTE Prophylaxis Plan VTE Prophylaxis will be ordered: Yes
[2023-02-07] MEDS ORDERED: cefTRIAXone SODIUM 2,000 MG/70 ML BAG IV STA (15:33)
--- NOTE | 2023-02-07 15:43 | Emergency Department Note ---
History of Present Illness General Chief complaint: Leg Injury/Pain Stated complaint: LT LEG INJURY Time Seen by Provider: 02/07/23 09:42 History of Present Illness Provider complaint: Left leg pain Onset (ago): week(s) 1 Maximum Pain Intensity: 10 72-year-old male presents emergency department for left lower extremity pain. Patient reports for the last week he has been having hip pain that radiates down to his left leg. Reports no falls or traumas. He reports the increased swelling in his bilateral lower extremities. No chest pain or difficulty breathing. No abdominal pain. Home Medications Medication Instructions Recorded Confirmed Type magnesium oxide 400 mg PO QAM 12/29/19 02/07/23 History amiodarone 200 mg tablet See Rx Instructions .Route .COMPLEX 02/25/21 02/07/23 History atorvastatin 40 mg tablet 40 mg PO HS 02/25/21 02/07/23 History acetaminophen 500 mg capsule 1,000 mg PO Q6H PRN Pain 05/01/21 02/07/23 History metoprolol succinate 50 mg 200 mg PO HS 09/19/21 02/07/23 History tablet,extended release 24 hr aspirin 81 mg tablet 81 mg PO QAM 02/07/23 02/07/23 History furosemide 40 mg tablet 40 mg PO BID 02/07/23 02/07/23 History lisinopril 5 mg tablet 5 mg PO .5:00PM 02/07/23 02/07/23 History tadalafil 5 mg tablet 5 mg PO DAILY@1700 02/07/23 02/07/23 History Allergies Allergy/AdvReac Type Severity Reaction Status Date / Time No Known Allergies Allergy Verified 02/07/23 13:37 Past Med/Surg History Medical History THANH (acute kidney injury) Bladder cancer CKD (chronic kidney disease), stage III Diabetes Erectile dysfunction Hematuria History of placement of internal cardiac defibrillator Myocardial infarction x 3 Obesity Perinephric hematoma Ventricular arrhythmia Surgical History History of cardiac cath Hx of hernia repair Social History Smoking Status: Never smoker Tobacco Type: Cigarettes Second Hand Exposure: No; Do You Dip or Chew Tobacco: Yes; Hx Alcohol Use: No Hx Substance Use: No Preferred Language: Faroese Communication Ability: Effective Quality Control Lab Tech Required: No Beliefs That Will Affect Care: None marital status: alone Current Living Situation: Alone current occupational status: retired How many Children do You have: 0 Feels Safe at Home: Yes Diet: regular during the past year weight has: decreased > 10 lbs Physical Activity Frequency: Does not Exercise Do you think of yourself as: straight/heterosexual Gender Identity: Male Assistive Devices: Cane, Denture - Upper and Glasses Physical Exam Vital Signs Vital Signs - 24 hr 02/07/23 09:36 02/07/23 09:59 02/07/23 10:09 Temperature 36.6 C Temperature Source Temporal Artery Scan Pulse Rate 67 60 60 Pulse Rate from SpO2 Sensor Respiratory Rate 18 16 Respiratory Effort / Characteristics Non-Labored Respiratory Depth Normal Blood Pressure 137/68 Blood Pressure [Right Arm] Blood Pressure Mean 91 Blood Pressure Mean [Right Arm] Pulse Oximetry 94 96 Oxygen Delivery Method Oxygen Flow Rate Sepsis Recent Fever Within 48 Hours No Sepsis New/Unexplained Change in Mental Status No Sepsis Action Taken by Nursing No Action Required 02/07/23 10:24 02/07/23 10:02 02/07/23 10:30 Temperature Temperature Source Pulse Rate 62 61 Pulse Rate from SpO2 Sensor 62 61 Respiratory Rate 18 17 17 Respiratory Effort / Characteristics Respiratory Depth Normal Blood Pressure Blood Pressure [Right Arm] 119/75 Blood Pressure Mean Blood Pressure Mean [Right Arm] 89 Pulse Oximetry 89 L 92 98 Oxygen Delivery Method Nasal Cannula Oxygen Flow Rate 2 Sepsis Recent Fever Within 48 Hours Sepsis New/Unexplained Change in Mental Status Sepsis Action Taken by Nursing 02/07/23 11:00 02/07/23 11:30 02/07/23 12:00 Temperature Temperature Source Pulse Rate 64 66 63 Pulse Rate from SpO2 Sensor 61 69 62 Respiratory Rate 22 31 H 14 Respiratory Effort / Characteristics Respiratory Depth Blood Pressure Blood Pressure [Right Arm] Blood Pressure Mean Blood Pressure Mean [Right Arm] Pulse Oximetry 97 96 98 Oxygen Delivery Method Oxygen Flow Rate Sepsis Recent Fever Within 48 Hours Sepsis New/Unexplained Change in Mental Status Sepsis Action Taken by Nursing 02/07/23 12:30 02/07/23 13:59 Temperature Temperature Source Pulse Rate 61 63 Pulse Rate from SpO2 Sensor 62 Respiratory Rate 19 Respiratory Effort / Characteristics Respiratory Depth Blood Pressure Blood Pressure [Right Arm] Blood Pressure Mean Blood Pressure Mean [Right Arm] Pulse Oximetry 96 Oxygen Delivery Method Oxygen Flow Rate Sepsis Recent Fever Within 48 Hours Sepsis New/Unexplained Change in Mental Status Sepsis Action Taken by Nursing Physical Exam HENT: Exam performed. - Head: Normocephalic and atraumatic. - Right Ear: External ear normal. No mastoid erythema - Left Ear: External ear normal. No mastoid erythema - Mouth/Throat: The oropharynx is clear and moist. No trismus in the jaw. No dental abscesses or uvula swelling. No oropharyngeal exudate or tonsillar abscesses. EYES: Conjunctivae and EOM are normal. Right eye exhibits no discharge. Left eye exhibits no discharge. No scleral icterus. NECK: Normal range of motion. Neck supple. No JVD present.No tracheal deviation and normal range of motion present. CV: Normal rate, regular rhythm, normal heart sounds and intact distal pulses. Palpable radial pulses bue. PULM/CHEST: Mild inspiratory rales bilaterally ABD: The abdomen is soft and morbidly obese. There is no tenderness. There is no rebound, no guarding MUSC/SKEL: Normal range of motion. There is no tenderness or deformity. 2+ pitting edema of the bilateral lower extremities. NEURO: He is alert and oriented to person, place, and time. He has normal strength. No cranial nerve deficit or sensory deficit. GCS eye subscore is 4. GCS verbal subscore is 5. GCS motor subscore is 6. Cerebellar tests wnl. SKIN: Stasis dermatitis bilaterally. Course Course 09: The patient was evaluated in room B11. A complete history and physical exa m was performed Cardiac monitoring: An order was placed for continuous cardiac monitoring. The monitor shows a rate of 60 with sinus rhythm interpreted by me 1025: Nursing informed me that the patient's oxygen saturation is dropping to 8887% on room air. Supplemental oxygen was applied via nasal cannula which improved patient's oxygen saturation. Additional labs and imaging ordered. 1320: Vital signs stable on supplemental oxygen via nasal cannula. Labs show hemoglobin of 13.4. Coagulation studies within normal limits. VBG within normal limits. Creatinine up to 2.21. His creatinine kinase is up to 547. BNP 318. High-sensitivity troponin negative. Chest x-ray shows cardiomegaly with pulmonary vascular congestion. Patient will be admitted to the hospitalist team. Lasix given to the patient. Administered Medications Discontinued Medications Furosemide (Furosemide 40 Mg/4 Ml Vial) 40 mg IV ONE ONE Stop: 02/07/23 13:18 Last Admin: 02/07/23 13:57 Dose: 40 mg Documented By: JORGE LUIS Ketorolac Tromethamine (Ketorolac Tromethamine 15 Mg/Ml Vial) 15 mg IV NOW STA Stop: 02/07/23 10:00 Last Admin: 02/07/23 10:20 Dose: 15 mg Documented By: [facility] Critical Care Time Critical Care Time: Yes Total Critical Care Time: 52 I have personally spent greater than 52 minutes of critical care time in the direct management of this patient. This includes bedside care, interpretation of diagnostic studies, and testing, discussion with consultants, patient, and family members, and other required patient management activities. This 52 minutes is in excess of all separately billable procedures. Medical Decision Making Laboratory Data Attestation: I reviewed the patient's lab results. 02/07/23 10:15 02/07/23 10:15 Lab Results 02/07/23 02/07/23 02/07/23 Range/Units 10:15 10:15 10:15 WBC 7.47 (4.8-10.8) K/ul RBC 4.21 L (4.70-6.10) M/uL Hgb 13.4 L (14.0-18.0) g/dl Hct 40.3 L (42.0-52.0) % MCV 95.7 (80.0-100.0) fL MCH 31.8 (25.0-34.0) pg MCHC 33.3 (32.0-36.0) g/dL RDW Std Deviation 47.7 H (36.4-46.3) fL RDW Coeff of Adriana 13.4 (11.5-14.5) % Plt Count 163 (130-400) K/uL MPV 12.1 (9.4-12.4) fL Immature Gran % (Auto) 0.4 % Neut % (Auto) 71.8 % Lymph % (Auto) 10.4 % Coles % (Auto) 16.6 % Eos % (Auto) 0.5 % Baso % (Auto) 0.3 % Neut # (Auto) 5.36 (1.40-6.50) K/uL Lymph # (Auto) 0.78 L (1.2-3.4) K/uL Coles # (Auto) 1.24 H (0.11-0.59) K/uL Eos # (Auto) 0.04 (0-0.50) K/uL Baso # (Auto) 0.02 (0-0.2) K/uL Immature Gran # (Auto) 0.03 (0.01-0.20) K/uL PT 11.6 (9.0-12.0) Seconds INR 1.1 (0.9-1.1) APTT 28.6 (21.0-31.0) Seconds PTT Ratio 1.0 VBG pH (7.36-7.41) VBG pCO2 (38-50) mmHg VBG pO2 mmHg VBG HCO3 mmol/L VBG O2 Saturation % VBG Base Excess mEq/L Sodium 136 (136-145) mmol/L Potassium 4.4 (3.5-5.1) mmol/L Chloride 96 L (98-107) mmol/L Carbon Dioxide 35 H (21-32) mmol/L Anion Gap 5 (3-11) BUN 35 H (6-23) mg/dl Creatinine 2.21 H (0.6-1.4) mg/dl Est Cr Clr Drug Dosing 48.0 ml/min Est GFR ( Amer) 33.5 ml/min Est GFR (Non-Af Amer) 28.9 ml/min BUN/Creatinine Ratio 15.8 (10-20) Glucose 112 H (70-99(Fasting)) mg/dl Calcium 8.9 (8.6-10.3) mg/dl Total Creatine Kinase 547 H (30-223) U/L Troponin I High Sens 10.5 (0-20) pg/ml B-Natriuretic Peptide (0-100) pg/ml SARS-CoV-2, RNA, NAAT (NEGATIVE) 02/07/23 02/07/23 02/07/23 Range/Units 11:03 11:32 14:12 WBC (4.8-10.8) K/ul RBC (4.70-6.10) M/uL Hgb (14.0-18.0) g/dl Hct (42.0-52.0) % MCV (80.0-100.0) fL MCH (25.0-34.0) pg MCHC (32.0-36.0) g/dL RDW Std Deviation (36.4-46.3) fL RDW Coeff of Adriana (11.5-14.5) % Plt Count (130-400) K/uL MPV (9.4-12.4) fL Immature Gran % (Auto) % Neut % (Auto) % Lymph % (Auto) % Coles % (Auto) % Eos % (Auto) % Baso % (Auto) % Neut # (Auto) (1.40-6.50) K/uL Lymph # (Auto) (1.2-3.4) K/uL Coles # (Auto) (0.11-0.59) K/uL Eos # (Auto) (0-0.50) K/uL Baso # (Auto) (0-0.2) K/uL Immature Gran # (Auto) (0.01-0.20) K/uL PT (9.0-12.0) Seconds INR (0.9-1.1) APTT (21.0-31.0) Seconds PTT Ratio VBG pH 7.40 (7.36-7.41) VBG pCO2 48 (38-50) mmHg VBG pO2 126 mmHg VBG HCO3 30 mmol/L VBG O2 Saturation 99.0 % VBG Base Excess 4.0 mEq/L Sodium (136-145) mmol/L Potassium (3.5-5.1) mmol/L Chloride (98-107) mmol/L Carbon Dioxide (21-32) mmol/L Anion Gap (3-11) BUN (6-23) mg/dl Creatinine (0.6-1.4) mg/dl Est Cr Clr Drug Dosing ml/min Est GFR ( Amer) ml/min Est GFR (Non-Af Amer) ml/min BUN/Creatinine Ratio (10-20) Glucose (70-99(Fasting)) mg/dl Calcium (8.6-10.3) mg/dl Total Creatine Kinase (30-223) U/L Troponin I High Sens (0-20) pg/ml B-Natriuretic Peptide 318 H (0-100) pg/ml SARS-CoV-2, RNA, NAAT NEGATIVE (NEGATIVE) Imaging Data Attestation: I personally reviewed and interpreted this imaging study as follows: My Impression: Chest x-ray: Cardiomegaly with pulmonary vascular congestion Radiologist's Impression: Venous Doppler Study 02/07/23 09:59 LEFT LOWER EXTREMITY VENOUS DOPPLER HISTORY: Left leg swelling. COMPARISON STUDY: None. FINDINGS: There is normal compressibility, flow, and augmentation within the visualized left lower extremity deep venous system. Of note, the left peroneal and anterior tibial veins were not well visualized due to the patient's body habitus and subcutaneous edema. IMPRESSION: No DVT within the visualized left lower extremity. ACT 112: Negative or not required by law. Electronically signed by: Jonah Jenkins M.D. 02/07/2023 1:20 PM Hip/Pelvis X-Ray 02/07/23 10:00 XR hip LT 2V w pelvis CLINICAL HISTORY: L hip pain COMPARISON STUDY: None. FINDINGS: No fracture or dislocation within the pelvis or hips. 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 The sacrum is intact. Degenerative changes within the lower lumbar spine. Soft tissues are unremarkable. IMPRESSION: No fracture or dislocation within the pelvis or hips. ACT 112: Negative or not required by law. Electronically signed by: Jonah Jenkins M.D. 02/07/2023 11:08 AM Chest X-Ray 02/07/23 10:32 XR chest 1V portable HISTORY: Shortness of breath. COMPARISON: Chest 09/23/2021. FINDINGS: No pneumothorax. No pleural effusions. The cardiac silhouette remains mildly enlarged. This left-sided pacemaker again noted. No new focal lung consolidations to suggest pneumonia. There is mild central pulmonary vascular congestion without overt edema. IMPRESSION: Cardiomegaly and mild congestive change. ACT 112: Negative or not required by law. Electronically signed by: Jonah Jenkins M.D. 02/07/2023 11:10 AM ECG Data Attestation: I personally reviewed and interpreted this ECG as follows: Additional Comments: Paced rhythm with rate of 63. QRS 66 QTc 491. MDM Narrative 0942: The patient was evaluated in room B11. A complete history and physical exam was performed Cardiac monitoring: An order was placed for continuous cardiac monitoring. The monitor shows a rate of 60 with sinus rhythm interpreted by me 1025: Nursing informed me that the patient's oxygen saturation is dropping to 8887% on room air. Supplemental oxygen was applied via nasal cannula which improved patient's oxygen saturation. Additional labs and imaging ordered. 1320: Vital signs stable on supplemental oxygen via nasal cannula. Labs show hemoglobin of 13.4. Coagulation studies within normal limits. VBG within normal limits. Creatinine up to 2.21. His creatinine kinase is up to 547. BNP 318. High-sensitivity troponin negative. Chest x-ray shows cardiomegaly with pulmonary vascular congestion. Patient will be admitted to the hospitalist team. Lasix given to the patient. Impression & Plan Hypoxia, CHF exacerbation, Leg pain, left Discharge Plan Visit Data Chief Complaint: Leg Injury/Pain Stated Complaint: LT LEG INJURY ED Provider: Richie Burton Discharge Problem: Hypoxia, CHF exacerbation, Leg pain, left Patient Disposition: Admitted As Inpatient Forms Stand Alone Forms: My [facility] Prescriptions Prescriptions: No Action atorvastatin 40 mg tablet 40 mg PO HS amiodarone 200 mg tablet See Rx Instructions .ROUTE .COMPLEX Rx Instructions: 100mg by mouth in the morning and 200mg by mouth at bedtime acetaminophen 500 mg capsule 1,000 mg PO Q6H PRN (Reason: Pain) magnesium oxide 400 mg magnesium Tablet 400 mg PO QAM metoprolol succinate 50 mg tablet extended release 24 hr 200 mg PO HS aspirin 81 mg Tablet 81 mg PO QAM lisinopril 5 mg tablet 5 mg PO .5:00PM furosemide 40 mg tablet 40 mg PO BID tadalafil 5 mg Tablet 5 mg PO DAILY@1700 Referrals Referrals: Kd Castellon MD [Primary Care Provider] -
[2023-02-07] MEDS ORDERED: traMADol HCL 50 MG TABLET PO STA (17:05)
[2023-02-07] MEDS ORDERED: traMADol HCL 50 MG TABLET PO PRN (17:05)
[2023-02-07] MEDS: METOPROLOL SUCC 50MG EXT REL TAB PO SCH (21:55)
[2023-02-07] MEDS: AMIODARONE 200 MG TAB PO SCH ×2 (21:56→22:15)
[2023-02-07] MEDS: ATORVASTATIN 40 MG TAB PO SCH (21:57)
[2023-02-07] MEDS: HEPARIN SOD 5,000 UNIT/0.5 ML VIAL SQ SCH (21:57)
--- NOTE | 2023-02-07 23:15 | CT Scan Report ---
Exam(s): CT ABDOMEN + PELVIS Without Contrast EXAM: CT Abdomen and Pelvis Without Intravenous Contrast CLINICAL HISTORY: Reason for exam: hernia with pain. TECHNIQUE: Axial computed tomography images of the abdomen and pelvis without intravenous contrast. CTDI is 34.09 mGy and DLP is 1799.59 mGy-cm. Automated exposure control was utilized for the study. A dose lowering technique was utilized adhering to the principles of ALARA. COMPARISON: No relevant prior studies available. FINDINGS: Lung bases: Unremarkable. No mass. No consolidation. ABDOMEN: Liver: Unremarkable. Gallbladder and bile ducts: Layering sludge in the gallbladder. No calcified stones. No ductal dilation. Pancreas: Unremarkable. No ductal dilation. Spleen: Unremarkable. No splenomegaly. Adrenals: Unremarkable. No mass. Kidneys and ureters: Scarring/atrophy of the LEFT kidney. No hydronephrosis. Renal cysts. Stomach and bowel: Diverticulosis, without acute diverticulitis. No small bowel obstruction. No free intraperitoneal air. PELVIS: Appendix: Normal appendix. Bladder: Unremarkable. No stones. Normal urinary bladder. Reproductive: Unremarkable as visualized. ABDOMEN and PELVIS: Intraperitoneal space: Unremarkable. No free air. No significant fluid collection. Bones/joints: Degenerative changes of the spine. No acute fracture. No dislocation. Soft tissues: Unremarkable. Vasculature: Atherosclerotic changes of the aorta. No abdominal aortic aneurysm. Lymph nodes: Unremarkable. No enlarged lymph nodes. Tubes, lines and devices: Pacemaker leads. IMPRESSION: 1. Normal appendix. 2. Scarring/atrophy of the LEFT kidney. No hydronephrosis. 3. Diverticulosis, without acute diverticulitis. No small bowel obstruction. No free intraperitoneal air. 4. Layering sludge in the gallbladder. Electronically signed by: Victor M Veras MD 02/07/23 23:14 PM
--- NOTE | 2023-02-08 02:01 | Communication Note ---
Date of Service: February 08, 2023 Requested by admitting provider to follow patient CT abdomen pelvis results due to patient concerns about hernia pain. CT abdomen pelvis results: 1. Normal appendix. 2. Scarring/atrophy of the LEFT kidney. No hydronephrosis. 3. Diverticulosis, without acute diverticulitis. No small bowel obstruction. No free intraperitoneal air. 4. Layering sludge in the gallbladder. Patient points to periumbilical/hypogastric pain related to hernia. No upper abdominal tenderness elicited on exam to rule out biliary colic from incidental CT finding of gallbladder sludge.
[2023-02-08] MEDS: HEPARIN SOD 5,000 UNIT/0.5 ML VIAL SQ SCH ×3 (05:26→20:27)
[2023-02-08 08:36] LABS: Hematocrit (blood only) 38.6 % (42.0-52.0); Hemoglobin 12.3 g/dl (14.0-18.0); Mean Corpuscular Hemoglobin 31.2 pg (25.0-34.0); Mean Corpuscular Hgb Conc 31.9 g/dL (32.0-36.0); Mean Platelet Volume 11.5 fL (9.4-12.4); Platelet Count 142 K/uL (130-400); RDW Coefficient of Variation 13.4 % (11.5-14.5); RDW Standard Deviation 48.1 fL (36.4-46.3); Red Blood Count 3.94 M/uL (4.70-6.10); White Blood Count 5.74 K/ul (4.8-10.8)
[2023-02-08 08:54] LABS: BUN Creatinine Ratio 18.8 (10-20); Calcium 8.6 mg/dl (8.6-10.3); Creatinine Clr Calc Pharmacy 50.9 ml/min; Est GFR (Non-African American) 31.1 ml/min; Magnesium 2.1 mg/dl (1.7-2.4); Potassium 4.4 mmol/L (3.5-5.1)
[2023-02-08] MEDS: AMIODARONE 200 MG TAB PO SCH ×2 (08:56→20:20)
[2023-02-08] MEDS: MAGNESIUM OXIDE 400 MG TAB PO SCH (08:57)
[2023-02-08] MEDS: POTASSIUM CHLORIDE CRTAB 20 MEQ TABCR PO SCH ×2 (08:57→17:19)
[2023-02-08] MEDS: FUROSEMIDE 40 MG/4 ML VIAL IV SCH ×2 (09:00→17:18)
--- NOTE | 2023-02-08 13:43 | Cardiology Consultation ---
Date of Consultation February 08, 2023 Assessment & Plan (1) Acute on chronic systolic heart failure: (2) Acute kidney injury superimposed on chronic kidney disease: (3) Hypoxia: (4) Status post implantation of automatic cardioverter/defibrillator (AICD): (5) Non-ischemic cardiomyopathy: (6) Ventricular arrhythmia: Plan 72-year-old male with longstanding history of nonischemic cardiomyopathy with severe LV dysfunction, chronic systolic heart failure. Underlying issues include past ventricular arrhythmias on chronic amiodarone therapy with pacer defibrillator in place. Morbid obesity with obstructive sleep apnea Patient presents due to leg swelling and discomfort but findings consistent with systolic heart failure and greater than 20 pound weight gain. Plan as already begun. Continue IV diuretics. Hold lisinopril given renal insufficiency With supplemental oxygen. Treat sleep apnea of possible We will continue to follow patient History of Present Illness Reason for Consultation: Acute systolic heart failure Requesting Physician: Dr. Lagos Attending Physician: Chino Lagos MD History of Present Illness Patient is a 72-year-old male with ongoing cardiac/med concerns 1. Nonischemic cardiomyopathy diagnosed 2009 2. Chronic systolic heart failure 3. Morbid obesity 4. Prior sustained ventricular tachycardia on chronic amiodarone therapy 5. Status post biventricular pacemaker insertion 12/30/2019 6. Obstructive sleep apnea 7. Bladder carcinoma status post resection prior hematuria Patient presents this admission after seeking ER evaluation of leg pain and swelling. Notes greater than 20 pound weight gain over the past several months. Has been compliant with medications. No sense of tachypalpitations syncope or near syncope. No chest pains. Concerned that compression stockings were causing issues but notes edema now extends to mid thigh. No fevers chills or unexplained infections. No bleeding difficulties since bladder carcinoma treated. Allergies Allergy/AdvReac Type Severity Reaction Status Date / Time No Known Allergies Allergy Verified 02/07/23 13:37 Home Medications Medication Instructions Recorded Confirmed Type magnesium oxide 400 mg PO QAM 12/29/19 02/07/23 History amiodarone 200 mg tablet See Rx Instructions .Route .COMPLEX 02/25/21 02/07/23 History atorvastatin 40 mg tablet 40 mg PO HS 02/25/21 02/07/23 History acetaminophen 500 mg capsule 1,000 mg PO Q6H PRN Pain 05/01/21 02/07/23 History metoprolol succinate 50 mg 200 mg PO HS 09/19/21 02/07/23 History tablet,extended release 24 hr aspirin 81 mg tablet 81 mg PO QAM 02/07/23 02/07/23 History furosemide 40 mg tablet 40 mg PO BID 02/07/23 02/07/23 History lisinopril 5 mg tablet 5 mg PO .5:00PM 02/07/23 02/07/23 History tadalafil 5 mg tablet 5 mg PO DAILY@1700 02/07/23 02/07/23 History Patient History Medical History THANH (acute kidney injury) Bladder cancer CKD (chronic kidney disease), stage III Diabetes Erectile dysfunction Hematuria History of placement of internal cardiac defibrillator Obesity Perinephric hematoma Ventricular arrhythmia Surgical History History of cardiac cath Hx of hernia repair Social History Smoking Status: Former smoker Tobacco Type: Cigarettes Second Hand Exposure: No; Do You Dip or Chew Tobacco: No; Tobacco Cessation Education Requested by Patient: No Hx Alcohol Use: No Hx Substance Use: No Preferred Language: Gib[place] Communication Ability: Effective Site Foreman Required: No Beliefs That Will Affect Care: None marital status: alone Current Living Situation: Alone current occupational status: retired How many Children do You have: 0 Other Information That Helps Us Care for You: No Feels Safe at Home: Yes Safety Concerns: Feels Safe At This Time Diet: regular during the past year weight has: decreased > 10 lbs Physical Activity Frequency: Does not Exercise Do you think of yourself as: straight/heterosexual Gender Identity: Male Assistive Devices: Cane, Denture - Upper and Glasses Review of Systems Review of Systems: All systems reviewed & are unremarkable except as noted in HPI & below Physical Exam Constitutional: + morbidly obese; no acute distress Eyes: PERRL, conjunctivae normal, anicteric sclerae ENMT: external ear and nose normal, oropharynx normal Neck: + thick neck Respiratory: Auscultation: + diminished lung sounds Cardiovascular: Rate/Rhythm: regular rate and regular rhythm Extremities: + edema (3+ to mid thigh) Chest (Breasts): Chest: + pacemaker (Defibrillator left shoulder) Gastrointestinal (Abdomen): Obese soft with mild distention Skin: Rubor bilateral lower extremity Psychiatric: A+Ox3, euthymic affect Results & Data Vital Signs (Past 12 Hours) Vital Signs Temp Pulse Pulse Resp BP BP Pulse Ox 02/08/23 11:26 36.8 C 67 19 94/59 L 85 L 02/08/23 08:00 02/08/23 07:43 37.2 C 60 18 109/63 89 L 02/08/23 03:51 37 C 62 18 104/62 94 02/08/23 03:03 O2 Del Method O2 Flow Rate 02/08/23 11:26 Room Air 02/08/23 08:00 Nasal Cannula 2 02/08/23 07:43 Room Air 02/08/23 03:51 Room Air 02/08/23 03:03 Nasal Cannula 2 Laboratory Results Laboratory Results - last 24 hr 02/07/23 02/08/23 02/08/23 14:12 07:55 07:55 WBC 5.74 RBC 3.94 L Hgb 12.3 L Hct 38.6 L MCV 98.0 MCH 31.2 MCHC 31.9 L RDW Std Deviation 48.1 H RDW Coeff of Adriana 13.4 Plt Count 142 MPV 11.5 Sodium 138 Potassium 4.4 Chloride 98 Carbon Dioxide 34 H Anion Gap 6 BUN 39 H Creatinine 2.08 H Est Cr Clr Drug Dosing 50.9 Est GFR ( Amer) 36.0 Est GFR (Non-Af Amer) 31.1 BUN/Creatinine Ratio 18.8 Glucose 99 Calcium 8.6 Magnesium 2.1 Total Creatine Kinase 382 H B-Natriuretic Peptide SARS-CoV-2, RNA, NAAT NEGATIVE 02/08/23 07:55 WBC RBC Hgb Hct MCV MCH MCHC RDW Std Deviation RDW Coeff of Adriana Plt Count MPV Sodium Potassium Chloride Carbon Dioxide Anion Gap BUN Creatinine Est Cr Clr Drug Dosing Est GFR ( Amer) Est GFR (Non-Af Amer) BUN/Creatinine Ratio Glucose Calcium Magnesium Total Creatine Kinase B-Natriuretic Peptide 356 H SARS-CoV-2, RNA, NAAT
--- NOTE | 2023-02-08 16:26 | Hospitalist Progress Note ---
Date of Service February 08, 2023 Assessment & Plan (1) Acute on chronic systolic heart failure: Plan: per admitting service notes with addendum: LE swelling with pain and edema present on exam. Likely related to worsening swelling as he reports that removing his stockings helped his discomfort. He does report a weight gain, there is fluid on his CXR, and he has an elevated BNP with known h/o nonischemic cardiomyopathy with reduced EF. Echo today. Lasix 40mg IV in the ER. Will gauge response with strict I/Os. Browning discussed with patient including risks and he is amenable to this. Cardiology consultation. 02/08 Lasix 40mg IV BID (2) Cellulitis of left leg: Plan: With superficial erythema moving proximally on the left lower leg, it is difficult to rule out a superimposed cellulitis. Starting empiric Rocephin. Noting no fevers, chills and no evidence of sepsis. He had prior venous stasis ulcers that are now healed up and closed. 02/08 Continue IV ceftriaxone (3) Acute kidney injury superimposed on chronic kidney disease: Plan: creatinine is 2.2 with baseline around 1.5. This may be related to poor renal perfusion in heart failure. Cont with lasix therapy and repeat BMP in am. Hold lisinopril and renally dose meds as needed. Avoid contrast and other nephrotoxic substances such as NSAIDs. 02/08 crea 2.2 --> 2.0 monitor (4) Bladder cancer: Plan: followed by Urology, s/p surgery (5) Morbid obesity: Plan: BMI is 50. Lifestyle changes recommended for weight loss. (6) Abdominal hernia: Plan: Reports abdominal hernia with pain in the past several weeks. States hernia bulges out when he bends forward and seems to be reduced but is newly painful. He is morbidly obese and unable to give a clear history on this. CT a/p ordered for clarification. 02/08 1. Normal appendix. 2. Scarring/atrophy of the LEFT kidney. No hydronephrosis. 3. Diverticulosis, without acute diverticulitis. No small bowel obstruction. No free intraperitoneal air. 4. Layering sludge in the gallbladder. (7) Chronic venous insufficiency: Plan: LE swelling at baseline. Chronically uses Lasix 40mg PO BID and knee high SCDs. (8) Erectile dysfunction: Plan: Cont taldalafil per home regimen. (9) Recurrent ventricular tachycardia: Plan: s/p ICD. No report of this firing recently. EKG with v-paced rhythm. Cont monitoring on telemetry. (10) Status post implantation of automatic cardioverter/defibrillator (AICD): Plan: Heparin Full Code Dispo-pending anticipate d/c home when medically stable Admission and Anticipated Discharge Date Admission Date: February 07, 2023 Subjective Follow-up for acute on chronic CHF, left lower extremity cellulitis, etc. Seen resting in bed, comfortable, not distressed States he feels improved compared to yesterday Less left lower leg discomfort No shortness of breath, chest pain, palpitations, dizziness No fevers chills Review of Systems Review of Systems: all noted and negative except for above Physical Exam Physical Exam: General- oriented x 3, not in distress, speaks in sentences with no effort or accessory muscle use Eyes- anicteric Neck- no JVD Lungs- clear breath sounds bilaterally, no rales/wheezes Heart- normal rate, regular rhythm; no murmurs Abdomen- normal bowel sounds, nondistended, soft, nontender Extremities-grade 1 through 2 lower extremity edema left greater than right Positive moderate erythema on the distal left lower extremity, with moderate warmth, mild tenderness Neuro- alert, oriented x 3; no gross focal neurologic deficits Skin- warm & dry Results & Data Results & Data Vital Signs (Past 12 Hours) Vital Signs Temp Pulse Resp BP Pulse Ox O2 Del Method O2 Flow Rate 02/08/23 14:36 36.9 C 75 20 106/54 L 96 Nasal Cannula 2 02/08/23 11:26 36.8 C 67 19 94/59 L 85 L Room Air 02/08/23 08:00 Nasal Cannula 2 02/08/23 07:43 37.2 C 60 18 109/63 89 L Room Air all noted and reviewed including below
[2023-02-08] MEDS: cefTRIAXone SODIUM 2,000 MG in DEXTROSE 5% 50 ML IV SCH (17:16)
[2023-02-08] MEDS: ATORVASTATIN 40 MG TAB PO SCH (20:19)
[2023-02-08] MEDS: METOPROLOL SUCC 50MG EXT REL TAB PO SCH (20:19)
[2023-02-09] MEDS: HEPARIN SOD 5,000 UNIT/0.5 ML VIAL SQ SCH ×3 (05:35→19:54)
--- NOTE | 2023-02-09 06:20 | Electrocardiogram Report ---
Test Reason : Blood Pressure : / mmHG Vent. Rate : 063 BPM Atrial Rate : 063 BPM P-R Int : 000 ms QRS Dur : 066 ms QT Int : 480 ms P-R-T Axes : 000 104 -83 degrees QTc Int : 491 ms Ventricular-paced rhythm with frequent AV dual-paced complexes and with occasional Premature ventricu lar complexes Abnormal ECG When compared with ECG of 31-DEC-2019 11:48, Vent. rate has decreased BY 2 BPM Confirmed by Phill Chaves ([id number]) on 02/08/2023 11:43:48 AM Referred By: REFERRED SELF Confirmed By:Phill Chaves
[2023-02-09] MEDS: AMIODARONE 200 MG TAB PO SCH ×2 (08:11→19:54)
[2023-02-09] MEDS: MAGNESIUM OXIDE 400 MG TAB PO SCH (08:12)
[2023-02-09] MEDS: POTASSIUM CHLORIDE CRTAB 20 MEQ TABCR PO SCH ×2 (08:12→16:55)
[2023-02-09] MEDS: FUROSEMIDE 40 MG/4 ML VIAL IV SCH ×2 (08:13→16:55)
--- NOTE | 2023-02-09 11:36 | Cardiology Progress Note ---
Date of Service February 09, 2023 Assessment & Plan (1) Acute on chronic systolic heart failure: (2) Acute kidney injury superimposed on chronic kidney disease: (3) Hypoxia: (4) Status post implantation of automatic cardioverter/defibrillator (AICD): (5) Non-ischemic cardiomyopathy: (6) Ventricular arrhythmia: Plan 72-year-old male with longstanding history of nonischemic cardiomyopathy with severe LV dysfunction, chronic systolic heart failure. Underlying issues include past ventricular arrhythmias on chronic amiodarone therapy with pacer defibrillator in place. Morbid obesity with obstructive sleep apnea Patient presents due to leg swelling and discomfort but findings consistent with systolic heart failure and greater than 20 pound weight gain. Plan as already begun. Continue IV diuretics. Hold lisinopril given renal insufficiency With supplemental oxygen. Treat sleep apnea of possible We will continue to follow patient 02/09/2023 Patient appears to be responding to IV diuretics with left leg less tender overall signs and symptoms of edema improved. We will order BMP to be done today and daily Continue IV diuretics for now Patient in the past has deferred sleep medicine evaluation though will need at least nocturnal oximetry as suspect sleep apnea contributing significantly Renal function reviewed from outpatient records with creatinine 1 6-2.2 past testing Hold lisinopril for now Admission and Anticipated Discharge Date Admission Date: February 07, 2023 Subjective Patient seen and examined, chart, medications, telemetry reviewed. Patient sleeping very deeply groggy when aroused Notes lower extremity edema improved. Left leg less painful. No fevers or chills. No dizziness or lightheadedness no arrhythmias on telemetry Review of Systems Review of Systems: All systems reviewed & are unremarkable except as noted in Subjective Physical Exam Constitutional: + morbidly obese; no acute distress Eyes: PERRL, conjunctivae normal, anicteric sclerae ENMT: external ear and nose normal, oropharynx normal Neck: + thick neck Respiratory: Auscultation: + diminished lung sounds Cardiovascular: Rate/Rhythm: regular rate and regular rhythm Extremities: + edema (3+ to mid thigh) Chest (Breasts): Chest: + pacemaker (Defibrillator left shoulder) Skin: Left leg erythema and ruborous change, improved Psychiatric: A+Ox3, euthymic affect Results & Data Vital Signs (Past 12 Hours) Vital Signs Temp Pulse Pulse Resp BP Pulse Ox O2 Del Method 02/09/23 07:27 36.8 C 60 20 102/57 L 92 Nasal Cannula 02/09/23 07:24 62 02/09/23 03:46 37 C 71 18 91/55 L 94 Nasal Cannula 02/09/23 00:17 Room Air 02/08/23 23:58 60 O2 Flow Rate 02/09/23 07:27 2 02/09/23 07:24 02/09/23 03:46 2 02/09/23 00:17 02/08/23 23:58
[2023-02-09 12:52] LABS: BUN Creatinine Ratio 18.3 (10-20); Calcium 8.8 mg/dl (8.6-10.3); Creatinine Clr Calc Pharmacy 53.7 ml/min; Est GFR (African American) 38.5 ml/min; Est GFR (Non-African American) 33.2 ml/min; Potassium 4.9 mmol/L (3.5-5.1)
[2023-02-09] MEDS: cefTRIAXone SODIUM 2,000 MG in DEXTROSE 5% 50 ML IV SCH (16:55)
--- NOTE | 2023-02-09 17:34 | Hospitalist Progress Note ---
Date of Service February 09, 2023 Assessment & Plan (1) Acute on chronic systolic heart failure: Plan: per admitting service notes with addendum: LE swelling with pain and edema present on exam. Likely related to worsening swelling as he reports that removing his stockings helped his discomfort. He does report a weight gain, there is fluid on his CXR, and he has an elevated BNP with known h/o nonischemic cardiomyopathy with reduced EF. Echo today. Lasix 40mg IV in the ER. Will gauge response with strict I/Os. Browning discussed with patient including risks and he is amenable to this. Cardiology consultation. 02/09 continue with diuresis Lasix 40mg IV BID (2) Cellulitis of left leg: Plan: With superficial erythema moving proximally on the left lower leg, it is difficult to rule out a superimposed cellulitis. Starting empiric Rocephin. Noting no fevers, chills and no evidence of sepsis. He had prior venous stasis ulcers that are now healed up and closed. 02/09 about the same as yesterday add Daptomycin IV Continue IV ceftriaxone (3) Acute kidney injury superimposed on chronic kidney disease: Plan: creatinine is 2.2 with baseline around 1.5. This may be related to poor renal perfusion in heart failure. Cont with lasix therapy and repeat BMP in am. Hold lisinopril and renally dose meds as needed. Avoid contrast and other nephrotoxic substances such as NSAIDs. 02/09 crea 2.2 --> 2.0--> 1.9 monitor (4) Bladder cancer: Plan: followed by Urology, s/p surgery (5) Morbid obesity: Plan: BMI is 50. Lifestyle changes recommended for weight loss. (6) Abdominal hernia: Plan: Reports abdominal hernia with pain in the past several weeks. States hernia bulges out when he bends forward and seems to be reduced but is newly painful. He is morbidly obese and unable to give a clear history on this. CT a/p ordered for clarification. 02/09 1. Normal appendix. 2. Scarring/atrophy of the LEFT kidney. No hydronephrosis. 3. Diverticulosis, without acute diverticulitis. No small bowel obstruction. No free intraperitoneal air. 4. Layering sludge in the gallbladder. (7) Chronic venous insufficiency: Plan: LE swelling at baseline. Chronically uses Lasix 40mg PO BID and knee high SCDs. (8) Erectile dysfunction: Plan: Cont taldalafil per home regimen. (9) Recurrent ventricular tachycardia: Plan: s/p ICD. No report of this firing recently. EKG with v-paced rhythm. Cont monitoring on telemetry. (10) Status post implantation of automatic cardioverter/defibrillator (AICD): Plan: Heparin Full Code Dispo-pending PT/OT eval Admission and Anticipated Discharge Date Admission Date: February 07, 2023 Subjective ff up for acute CHF, etc seen resting in bed, comfortable states he feels fine overall less pain over the LLE area no chest pain, dyspnea, palpitations, dizziness no other symptoms Review of Systems Review of Systems: all noted and negative except for above Physical Exam Physical Exam: General- oriented x 3, not in distress, speaks in sentences with no effort or accessory muscle use Eyes- anicteric Neck- no JVD Lungs- clear breath sounds bilaterally, no rales/wheezes Heart- normal rate, regular rhythm; no murmurs Abdomen- normal bowel sounds, nondistended, soft, nontender Extremities- grade 1 -2 lower leg edema moderate erythema and mild warmth distal aspect Neuro- alert, oriented x 3; no gross focal neurologic deficits Skin- warm & dry Results & Data Results & Data Vital Signs (Past 12 Hours) Vital Signs Temp Pulse Pulse Resp BP Pulse Ox O2 Del Method 02/09/23 14:56 37 C 79 20 105/55 L 96 Nasal Cannula 02/09/23 08:10 Nasal Cannula 02/09/23 11:00 36.7 C 60 18 131/61 98 Nasal Cannula 02/09/23 07:27 36.8 C 60 20 102/57 L 92 Nasal Cannula 02/09/23 07:24 62 O2 Flow Rate 02/09/23 14:56 2 02/09/23 08:10 2 02/09/23 11:00 2 02/09/23 07:27 2 02/09/23 07:24 all noted and reviewed including below
[2023-02-09] MEDS: DAPTOmycin 450 MG in SYRINGE 0 ML IV SCH (19:01)
[2023-02-09] MEDS: ACETAMINOPHEN 325 MG TAB PO PRN (19:53)
[2023-02-09] MEDS: ATORVASTATIN 40 MG TAB PO SCH (19:54)
[2023-02-09] MEDS: METOPROLOL SUCC 50MG EXT REL TAB PO SCH (19:54)
[2023-02-10] MEDS: ACETAMINOPHEN 325 MG TAB PO PRN (03:19)
[2023-02-10] MEDS: HEPARIN SOD 5,000 UNIT/0.5 ML VIAL SQ SCH ×3 (06:24→20:24)
[2023-02-10] MEDS: AMIODARONE 200 MG TAB PO SCH ×2 (08:16→20:23)
[2023-02-10] MEDS: FUROSEMIDE 40 MG/4 ML VIAL IV SCH (08:16)
[2023-02-10] MEDS: MAGNESIUM OXIDE 400 MG TAB PO SCH (08:16)
[2023-02-10] MEDS: POTASSIUM CHLORIDE CRTAB 20 MEQ TABCR PO SCH ×2 (08:16→16:54)
[2023-02-10 10:48] LABS: BUN Creatinine Ratio 19.7 (10-20); Calcium 8.9 mg/dl (8.6-10.3); Est GFR (African American) 37.1 ml/min; Potassium 4.7 mmol/L (3.5-5.1)
--- NOTE | 2023-02-10 15:09 | Hospitalist Progress Note ---
Date of Service February 10, 2023 Assessment & Plan (1) Acute on chronic systolic heart failure: Plan: per admitting service notes with addendum: LE swelling with pain and edema present on exam. Likely related to worsening swelling as he reports that removing his stockings helped his discomfort. He does report a weight gain, there is fluid on his CXR, and he has an elevated BNP with known h/o nonischemic cardiomyopathy with reduced EF. Echo today. Lasix 40mg IV in the ER. 02/10 Echocardiogram: Moderate concentric LVH, mild global hypokinesis of the left ventricle, ejection fraction 40 to 45%, mild to moderate mitral regurgitation Improving gradually continue with Lasix 40mg IV BID Cardiology service on board (2) Cellulitis of left leg: Plan: With superficial erythema moving proximally on the left lower leg, it is difficult to rule out a superimposed cellulitis. \ 02/10 Erythema improving, warmth resolved Continue daptomycin IV daily day #2 Discontinued ceftriaxone IV (3) Acute kidney injury superimposed on chronic kidney disease: Plan: creatinine is 2.2 with baseline around 1.5. This may be related to poor renal perfusion in heart failure. Cont with lasix therapy and repeat BMP in am. Hold lisinopril and renally dose meds as needed. Avoid contrast and other nephrotoxic substances such as NSAIDs. 02/10 crea stable around 2.0 monitor (4) Bladder cancer: Plan: followed by Urology, s/p surgery (5) Morbid obesity: Plan: BMI is 50. Lifestyle changes recommended for weight loss. (6) Abdominal hernia: Plan: Reports abdominal hernia with pain in the past several weeks. States hernia bulges out when he bends forward and seems to be reduced but is newly painful. He is morbidly obese and unable to give a clear history on this. CT a/p ordered for clarification. 02/09 1. Normal appendix. 2. Scarring/atrophy of the LEFT kidney. No hydronephrosis. 3. Diverticulosis, without acute diverticulitis. No small bowel obstruction. No free intraperitoneal air. 4. Layering sludge in the gallbladder. No abdominal pain or GI symptoms at this time (7) Chronic venous insufficiency: Plan: LE swelling at baseline. Chronically uses Lasix 40mg PO BID and knee high SCDs. (8) Erectile dysfunction: Plan: Cont taldalafil per home regimen. (9) Recurrent ventricular tachycardia: Plan: s/p ICD. No report of this firing recently. EKG with v-paced rhythm. Cont monitoring on telemetry. (10) Status post implantation of automatic cardioverter/defibrillator (AICD): Plan: Heparin Full Code Dispo-pending PT/OT eval May need to transition to acute rehab Admission and Anticipated Discharge Date Admission Date: February 07, 2023 Subjective Follow-up for acute on chronic CHF exacerbation, etc. Seen sitting up in bedside chair, comfortable, listening to music with his earphones States he continues to feel fine overall Denies shortness of breath, cough, fevers or chills, chest pain Left lower extremity pain continues to improve No other new symptoms Review of Systems Review of Systems: all noted and negative except for above Physical Exam Physical Exam: General- oriented x 3, not in distress, speaks in sentences with no effort or accessory muscle use Eyes- anicteric Neck- no JVD Lungs- clear breath sounds, no crackles or wheezing bilaterally Heart- normal rate, regular rhythm; no murmurs Abdomen- normal bowel sounds, nondistended, soft, no tenderness Extremities-grade 2 bilateral lower extremity edema -improving Bilateral lower extremity erythema, distal aspect, moderate -improving, no warmth, tenderness Neuro- alert, oriented x 3; no gross focal neurologic deficits Skin- warm & dry Results & Data Results & Data Vital Signs (Past 12 Hours) Vital Signs Temp Pulse Pulse Resp BP Pulse Ox O2 Del Method 02/10/23 08:30 Nasal Cannula 02/10/23 07:52 36.5 C 61 16 116/62 87 L Nasal Cannula 02/10/23 07:03 60 02/10/23 03:58 37.3 C 60 18 116/62 96 Nasal Cannula O2 Flow Rate 02/10/23 08:30 4 02/10/23 07:52 4 02/10/23 07:03 02/10/23 03:58 2 all noted and reviewed including below
--- NOTE | 2023-02-10 16:17 | Cardiology Progress Note ---
Date of Service February 10, 2023 Assessment & Plan (1) Acute on chronic systolic heart failure: (2) Acute kidney injury superimposed on chronic kidney disease: (3) Hypoxia: (4) Status post implantation of automatic cardioverter/defibrillator (AICD): (5) Non-ischemic cardiomyopathy: (6) Ventricular arrhythmia: Plan 72-year-old male with longstanding history of nonischemic cardiomyopathy with severe LV dysfunction, chronic systolic heart failure. Underlying issues include past ventricular arrhythmias on chronic amiodarone therapy with pacer defibrillator in place. Morbid obesity with obstructive sleep apnea Patient presents due to leg swelling and discomfort but findings consistent with systolic heart failure and greater than 20 pound weight gain. Plan as already begun. Continue IV diuretics. Hold lisinopril given renal insufficiency With supplemental oxygen. Treat sleep apnea of possible We will continue to follow patient 02/09/2023 Patient appears to be responding to IV diuretics with left leg less tender overall signs and symptoms of edema improved. We will order BMP to be done today and daily Continue IV diuretics for now Patient in the past has deferred sleep medicine evaluation though will need at least nocturnal oximetry as suspect sleep apnea contributing significantly Renal function reviewed from outpatient records with creatinine 1 6-2.2 past testing Hold lisinopril for now 02/10/2023 Slowly responded to diuretics Plan increase furosemide to 60 mg IV twice daily with BMP reviewed in the morning. Renal function remaining stable but holding lisinopril Left leg improving with IV antibiotic Suspect patient will require oxygen on discharge Admission and Anticipated Discharge Date Admission Date: February 07, 2023 Subjective Patient seen and examined, chart, medications, telemetry reviewed. Leg feels better less painful. Out of bed earlier today. No worsening shortness of breath. Continues to manifest diuresis with preserved renal function at baseline Review of Systems Review of Systems: All systems reviewed & are unremarkable except as noted in Subjective Physical Exam Constitutional: + morbidly obese; no acute distress Eyes: PERRL, conjunctivae normal, anicteric sclerae ENMT: external ear and nose normal, oropharynx normal Neck: trachea midline, no thyromegaly + thick neck Respiratory: Auscultation: + diminished lung sounds Cardiovascular: Rate/Rhythm: regular rhythm (Ventricular paced) Heart Sounds: + murmur Extremities: + edema (2-3+ to above the knees left greater than right) Results & Data Vital Signs (Past 12 Hours) Vital Signs Temp Pulse Pulse Resp BP Pulse Ox O2 Del Method 02/10/23 15:25 60 02/10/23 15:10 37.1 C 65 20 104/59 L 95 Nasal Cannula 02/10/23 08:30 Nasal Cannula 02/10/23 07:52 36.5 C 61 16 116/62 87 L Nasal Cannula 02/10/23 07:03 60 O2 Flow Rate 02/10/23 15:25 02/10/23 15:10 4 02/10/23 08:30 4 02/10/23 07:52 4 02/10/23 07:03 Laboratory Results Laboratory Results - last 24 hr 02/10/23 09:20 Sodium 137 Potassium 4.7 Chloride 95 L Carbon Dioxide 37 H Anion Gap 5 BUN 40 H Creatinine 2.03 H Est Cr Clr Drug Dosing 52.0 Est GFR ( Amer) 37.1 Est GFR (Non-Af Amer) 32.0 BUN/Creatinine Ratio 19.7 Glucose 125 H Calcium 8.9
[2023-02-10] MEDS: FUROSEMIDE INJ 20 MG/2 ML VIAL IV SCH (16:54)
[2023-02-10] MEDS: cefTRIAXone SODIUM 2,000 MG in DEXTROSE 5% 50 ML IV SCH (16:57)
[2023-02-10] MEDS: DAPTOmycin 450 MG in SYRINGE 0 ML IV SCH (17:32)
[2023-02-10] MEDS: ATORVASTATIN 40 MG TAB PO SCH (20:24)
[2023-02-10] MEDS: METOPROLOL SUCC 50MG EXT REL TAB PO SCH (20:24)
[2023-02-11] MEDS: HEPARIN SOD 5,000 UNIT/0.5 ML VIAL SQ SCH ×2 (05:15→14:01)
[2023-02-11 08:04] LABS: BUN Creatinine Ratio 23.1 (10-20); Creatinine Clr Calc Pharmacy 56.3 ml/min; Est GFR (African American) 41.3 ml/min; Est GFR (Non-African American) 35.6 ml/min; Potassium 5.1 mmol/L (3.5-5.1)
[2023-02-11] MEDS: MAGNESIUM OXIDE 400 MG TAB PO SCH (09:34)
[2023-02-11] MEDS: POTASSIUM CHLORIDE CRTAB 20 MEQ TABCR PO SCH ×2 (09:34→16:22)
[2023-02-11] MEDS: AMIODARONE 200 MG TAB PO SCH (09:35)
[2023-02-11] MEDS: FUROSEMIDE INJ 20 MG/2 ML VIAL IV SCH ×2 (09:35→16:22)
--- NOTE | 2023-02-11 13:37 | Cardiology Progress Note ---
Date of Service February 11, 2023 Assessment & Plan (1) Acute on chronic systolic heart failure: (2) Acute kidney injury superimposed on chronic kidney disease: (3) Hypoxia: (4) Status post implantation of automatic cardioverter/defibrillator (AICD): (5) Non-ischemic cardiomyopathy: (6) Ventricular arrhythmia: Plan 72-year-old male with longstanding history of nonischemic cardiomyopathy with severe LV dysfunction, chronic systolic heart failure. Underlying issues include past ventricular arrhythmias on chronic amiodarone therapy with pacer defibrillator in place. Morbid obesity with obstructive sleep apnea Patient presents due to leg swelling and discomfort but findings consistent with systolic heart failure and greater than 20 pound weight gain. Plan as already begun. Continue IV diuretics. Hold lisinopril given renal insufficiency With supplemental oxygen. Treat sleep apnea of possible We will continue to follow patient 02/09/2023 Patient appears to be responding to IV diuretics with left leg less tender overall signs and symptoms of edema improved. We will order BMP to be done today and daily Continue IV diuretics for now Patient in the past has deferred sleep medicine evaluation though will need at least nocturnal oximetry as suspect sleep apnea contributing significantly Renal function reviewed from outpatient records with creatinine 1 6-2.2 past testing Hold lisinopril for now 02/10/2023 Slowly responded to diuretics Plan increase furosemide to 60 mg IV twice daily with BMP reviewed in the morning. Renal function remaining stable but holding lisinopril Left leg improving with IV antibiotic Suspect patient will require oxygen on discharge 02/11/2023 Improved overnight with further diuresis, increased dose of furosemide Leg edema and abdominal girth much improved Renal function improved with diuresis. Aldosterone antagonist contraindicated due to renal insufficiency and potassium elevation Will transition to 60 mg furosemide twice per day orally Agree with rehab Admission and Anticipated Discharge Date Admission Date: February 07, 2023 Subjective Patient seen and examined, chart, medications, telemetry reviewed. Looks better more comfortable today. Sitting out of bed in chair. Lower extremity edema improved as is abdominal girth. Review of Systems Review of Systems: All systems reviewed & are unremarkable except as noted in Subjective Physical Exam Constitutional: + morbidly obese; no acute distress Eyes: PERRL, conjunctivae normal, anicteric sclerae ENMT: external ear and nose normal, oropharynx normal Neck: trachea midline, no thyromegaly + thick neck Respiratory: Auscultation: + diminished lung sounds Cardiovascular: Rate/Rhythm: regular rate and regular rhythm (Ventricular paced) Heart Sounds: + murmur Extremities: + edema (2-3+ to above the knees left greater than right) Chest (Breasts): Chest: + pacemaker (Defibrillator left shoulder) Psychiatric: A+Ox3, euthymic affect Results & Data Vital Signs (Past 12 Hours) Vital Signs Temp Pulse Pulse Pulse Resp BP Pulse Ox 02/11/23 12:24 36.8 C 67 16 108/70 94 02/11/23 11:16 90 02/11/23 11:15 85 L 02/11/23 08:00 02/11/23 11:18 60 02/11/23 07:30 37.0 C 58 L 14 124/76 93 02/11/23 03:40 36.8 C 60 20 106/59 L 93 O2 Del Method O2 Flow Rate 02/11/23 12:24 Nasal Cannula 2 02/11/23 11:16 Nasal Cannula 2 02/11/23 11:15 Room Air 02/11/23 08:00 Nasal Cannula 2 02/11/23 11:18 02/11/23 07:30 Nasal Cannula 2 02/11/23 03:40 Nasal Cannula 2 Laboratory Results Laboratory Results - last 24 hr 02/11/23 06:59 Sodium 136 Potassium 5.1 Chloride 94 L Carbon Dioxide 39 H Anion Gap 3 BUN 43 H Creatinine 1.86 H Est Cr Clr Drug Dosing 56.3 Est GFR ( Amer) 41.3 Est GFR (Non-Af Amer) 35.6 BUN/Creatinine Ratio 23.1 H Glucose 116 H Calcium 9.0
--- NOTE | 2023-02-11 15:19 | Discharge Summary ---
Date of Service February 11, 2023 Admission HPI Per Admitting Provider 72 yo M with chronic swelling in the lower extremities presents with posterior left leg pain since Thursday. He denies trauma and states that his compression stockings are causing the pain, described as a muscle cramp. Worse when he moves his leg at all, interfering with his ability to walk. He typically walks with a cane and lives alone. Niece is with him and does his shopping for him. Denies any issues with shortness of breath today. Denies use of oxygen at home. No fevers, chills No orthopnea. No chest pain Reports that he has a low appetite because of so many pills. He has been compliant with the Lasix 80mg PO daily. Feels the amiodarone is causing him to gain weight. Reports weight gain approx 25lbs over the past 6 weeks or so. Denies any dyspnea with exertion. From the best I can gather from him and his niece, who states she doesn't see him walk much, he can walk about 1.5 blocks with intermittent stopping at baseline. Admission Exam Per Admitting Provider CONSTITUTIONAL: obese, vitals as above, generally well-appearing, NAD EYES: normal conjunctivae, no scleral icterus ENT: external ear and nose normal, MMM NECK: trachea midline RESPIRATORY: clear to auscultation bilaterally, no crackles, rales or wheezes, normal respiratory effort CARDIOVASCULAR: regular rate and rhythm, S1 and 2 heard without murmurs, gallops or rubs, no JVD, 2+ pitting edema in lower extremities. Exam is limited 2/2 obese habitus. CHEST: inspection of chest was normal GASTROINTESTINAL: normal bowel sounds, soft, nontender, nondistended. MUSCULOSKELETAL: generalized weakness. There is pain with left knee flexion that is not present with his right leg. head is normocephalic and atraumatic SKIN: warm and dry, erythema on distal bilateral extremities with some additional erythema extending more proximally on the left. NEUROLOGIC: CN 2-12 grossly intact, no sensory deficit, normal cognition, normal speech, no tremor PSYCHIATRIC: alert cooperative and oriented to person, place and time. Euthymic mood, makes good eye contact, language grossly intact, recent and remote memory grossly intact. Poor historian. Would say he was taking aspirin and then say he wasn't and clarify that "I was at one time." Difficult to have him drill down on history around the pain, and appears irritated with questioning. Principal Diagnosis Acute on chronic diastolic heart failure Lower extremity cellulitis Discharge Exam General- oriented x 3, not in distress, speaks in sentences with no effort or accessory muscle use Eyes- anicteric Neck- no JVD Lungs- clear breath sounds, no crackles or wheezing bilaterally Heart- normal rate, regular rhythm; no murmurs Abdomen- normal bowel sounds, nondistended, soft, no tenderness Extremities-grade 2 bilateral lower extremity edema -improving Bilateral lower extremity erythema, distal aspect, moderate -improving, no warmth, tenderness Neuro- alert, oriented x 3; no gross focal neurologic deficits Skin- warm & dry Discharge Data Allergies Allergy/AdvReac Type Severity Reaction Status Date / Time No Known Allergies Allergy Verified 02/07/23 13:37 Consultations 02/07/23 13:17 ED Decision to Admit Stat 02/07/23 15:29 Consult Cardiology Routine Ordered Studies 02/07/23 09:59 US venous doppler LE LT Stat 02/07/23 17:53 CT Abd and Pelvis [CT abd pelvis wo con] Routine Hospital Course (1) Acute on chronic systolic heart failure: per admitting service notes with addendum: LE swelling with pain and edema present on exam. Likely related to worsening swelling as he reports that removing his stockings helped his discomfort. He does report a weight gain, there is fluid on his CXR, and he has an elevated BNP with known h/o nonischemic cardiomyopathy with reduce Echocardiogram: Moderate concentric LVH, mild global hypokinesis of the left ventricle, ejection fraction 40 to 45%, mild to moderate mitral regurgitation During the hospitalization, patient was diuresed with IV diuretics with assistance from cardiology. Patient's lower extremity edema improved significantly at discharge. His diuretic was increased from Lasix 40 mg twice daily to 60 mg twice daily. (2) Cellulitis of left leg: With superficial erythema moving proximally on the left lower leg, it is difficult to rule out a superimposed cellulitis. \\ Received IV ceftriaxone and daptomycin during the hospitalization. Discharged on doxycycline. (3) Acute kidney injury superimposed on chronic kidney disease: creatinine is 2.2 with baseline around 1.5. This may be related to poor renal perfusion in heart failure. Cont with lasix therapy and repeat BMP in am. Hold lisinopril and renally dose meds as needed. Avoid contrast and other nephrotoxic substances such as NSAIDs. Creatinine at baseline at discharge (4) Bladder cancer: followed by Urology, s/p surgery (5) Morbid obesity: BMI is 50. Lifestyle changes recommended for weight loss. (6) Abdominal hernia: Reports abdominal hernia with pain in the past several weeks. States hernia bulges out when he bends forward and seems to be reduced but is newly painful. He is morbidly obese and unable to give a clear history on this. CT a/p ordered for clarification. 02/09 1. Normal appendix. 2. Scarring/atrophy of the LEFT kidney. No hydronephrosis. 3. Diverticulosis, without acute diverticulitis. No small bowel obstruction. No free intraperitoneal air. 4. Layering sludge in the gallbladder. No abdominal pain or GI symptoms at this time (7) Chronic venous insufficiency: LE swelling at baseline. Chronically uses Lasix 40mg PO BID and knee high SCDs. (8) Erectile dysfunction: Cont taldalafil per home regimen. (9) Recurrent ventricular tachycardia: s/p ICD. No report of this firing recently. EKG with v-paced rhythm. Cont monitoring on telemetry. (10) Status post implantation of automatic cardioverter/defibrillator (AICD): Plan PT OT evaluation was done during the hospitalization. Patient was discharged to rehab. Total Time Total Time Spent Total Time Spent (In Minutes): 40 Total Time Includes: Examination of the Patient, Discharge Planning, Medication Reconciliation, Communication With Other Providers and Other Discharge Plan Discharge Items Patient Disposition: Transfer Custodial Fac Reason For Visit: LE EDEMA Discharge Diagnosis: Acute on chronic systolic heart failure Lower extremity cellulitis Activity: Resume your previous activity Non-emergency contact: Primary Care Provider Call non-emergency contact if: you have any medication questions and your symptoms worsen Follow-up/Referrals: Kd Castellon MD [Primary Care Provider] - Diet: Regular Addtl Attending Provider Instructions: You were admitted to the hospital with acute on chronic diastolic heart failure. You were evaluated by cardiology. Following changes has been made to your diuretic regimen: Increase Lasix to 60 mg twice daily. Take it at 8 AM and 2 PM. For the lower leg cellulitis; you are prescribed doxycycline 100 mg twice daily to be taken for 3 more days Please repeat basic metabolic panel in 3 days to check on the kidney function. Pending Studies at Discharge: No Stand-Alone Forms: My [facility] Skilled Items Patient informed of condition?: Yes DNR: No Discharge Level of Care: Skilled Communicable Disease: No Discharge Prognosis: Stable Lines: None Urinary Catheter: No Medications and DC Order Prescriptions: New aspirin 81 mg capsule 81 mg PO DAILY Qty: 30 0RF doxycycline hyclate 100 mg tablet 100 mg PO BID 3 Days Qty: 6 0RF Continued atorvastatin 40 mg tablet 40 mg PO HS Qty: 30 0RF metoprolol succinate 50 mg tablet extended release 24 hr 200 mg PO HS Qty: 30 0RF tadalafil 5 mg Tablet 5 mg PO DAILY@1700 Qty: 30 0RF magnesium oxide 400 mg magnesium Tablet 400 mg PO QAM Qty: 60 0RF amiodarone 200 mg tablet See Rx Instructions .ROUTE .COMPLEX Qty: 30 0RF Rx Instructions: 100mg by mouth in the morning and 200mg by mouth at bedtime lisinopril 5 mg tablet 5 mg PO .5:00PM Qty: 30 0RF Changed furosemide 40 mg tablet 60 mg PO BID Qty: 60 0RF acetaminophen 500 mg capsule 1,000 mg PO Q8H PRN (Reason: Pain) Qty: 60 0RF Discontinued aspirin 81 mg Tablet 81 mg PO QAM Discharge Orders: Discharge Order (Routine); Ordered 02/11/23 Ordered By: Baldomero Mccartney Admission Data Admit Date/Time: 02/07/23 13:38 Attending Provider: Baldomero Mccartney Admit Provider: Dina Deleon Primary Care Provider: Kd Castellon Other Providers: Yoshi Hayes ; Dina Deleon ; [facility] ; [facility] ; [place]
== END 2023-02-11 17:47 | DRG 292 ==
LOC: ED 09:29 → SUATTDRO 13:38 → 2N 13:38

== ENCOUNTER 2023-02-19 15:48 | Inpatient (IN) ==
--- NOTE | 2023-02-19 15:55 | ED Triage Note ---
Date of Service February 19, 2023 History of Present Illness This patient was briefly evaluated while in triage. An abbreviated physical exam was performed. This patient is a 72-year-old Male who presents to the ED for evaluation of abnormal labs. He was at [facility] and had outpatient testing that showed signs of kidney failure per patient. History of a malignant tumor on his kidney in the past per patient. Was recently admitted and discharged back to [facility]. CR went from 2.2 to 3.82 and BUN went from 35 to 77.2. States that he does not feel like he is urinating well. Otherwise denies any symptoms. Physical Exam GENERAL: Non-toxic and in no acute distress. HEENT: Pupils equal. No obvious scleral icterus. HEART: Regular rate and rhythm. LUNGS: Clear to auscultation. No accessory muscle use. ABDOMEN: Nontender to palpation. NEURO: Alert and oriented. No obvious neurological deficits on quick neuro exam. Initial orders for labs and / or imaging were placed and patient was placed in the waiting area until a bed is available. Please see further documentation for the full ED course.
[2023-02-19 16:27] LABS: Appearance Urine Clear (Clear); Bilirubin Urine Negative (Negative); Blood Urine Negative (Negative); Color Urine Yellow; Glucose Urine UA Negative (Negative); Ketones Urine Negative (Negative); Leukocyte Esterase Urine Negative (Negative); Nitrite Urine Negative (Negative); Protein Urine Negative (Negative); Specific Gravity Urine 1.008 (1.000-1.030); Urobilinogen Urine Negative (Negative); pH Urine 7.5 (4.5-7.5)
--- NOTE | 2023-02-19 16:53 | XRay Report ---
XR chest 1V not portable CLINICAL HISTORY: Dyspnea COMPARISON STUDY: Chest radiograph February 07, 2023. FINDINGS: A left subclavian pacer/AICD is in place. There is no pneumothorax or pleural effusion. The re is no consolidation to suggest pneumonia. Cardiomegaly is unchanged. Pulmonary vascular congestion is unchanged. IMPRESSION: Cardiomegaly and pulmonary vascular congestion, similar to prior exam. ACT 112: Negative or not required by law. Electronically signed by: Bruno Palma M.D. 02/19/2023 4:51 PM
[2023-02-19 17:54] LABS: Basophils # (auto) 0.04 K/uL (0-0.2); Basophils % (auto) 0.6 %; Eosinophils # (auto) 0.17 K/uL (0-0.50); Eosinophils % (auto) 2.6 %; Hematocrit (blood only) 40.2 % (42.0-52.0); Hemoglobin 13.2 g/dl (14.0-18.0); Immature Granulocytes # (auto) 0.15 K/uL (0.01-0.20); Immature Granulocytes % (auto) 2.3 %; Lymphocytes # (auto) 0.97 K/uL (1.2-3.4); Lymphocytes % (auto) 14.7 %; Mean Corpuscular Hemoglobin 31.3 pg (25.0-34.0); Mean Corpuscular Hgb Conc 32.8 g/dL (32.0-36.0); Mean Corpuscular Volume 95.3 fL (80.0-100.0); Mean Platelet Volume 11.5 fL (9.4-12.4); Monocytes # (auto) 0.86 K/uL (0.11-0.59); Neutrophils # (auto) 4.41 K/uL (1.40-6.50); Neutrophils % (auto) 66.8 %; Platelet Count 214 K/uL (130-400); RDW Coefficient of Variation 13.6 % (11.5-14.5); RDW Standard Deviation 47.5 fL (36.4-46.3); Red Blood Count 4.22 M/uL (4.70-6.10)
[2023-02-19 18:06] LABS: Alanine Aminotransferase 22 U/L (7-52); Albumin Globulin Ratio 1.1 (0.9-2); Albumin Level 3.8 gm/dl (3.4-5.0); Alkaline Phosphatase 93 U/L (34-104); Anion Gap 6 (3-11); Aspartate Aminotransferase 22 U/L (13-39); BUN Creatinine Ratio 21.7 (10-20); Bilirubin,Total 0.5 mg/dl (0.2-1.0); Blood Urea Nitrogen 73 mg/dl (6-23); Calcium 8.8 mg/dl (8.6-10.3); Carbon Dioxide 34 mmol/L (21-32); Chloride 95 mmol/L (98-107); Est GFR (African American) 20.1 ml/min; Est GFR (Non-African American) 17.4 ml/min; Globulin 3.4 gm/dl (2.5-4.0); Glucose 100 mg/dl (70-99(Fasting)); Magnesium 2.6 mg/dl (1.7-2.4); Potassium 5.4 mmol/L (3.5-5.1); Sodium 135 mmol/L (136-145); Total Protein 7.2 gm/dl (6.0-8.3)
[2023-02-19 18:13] LABS: Troponin I High Sensitivity 9.3 pg/ml (0-20)
[2023-02-19 18:20] LABS: Partial Thromboplastin Time 26.9 Seconds (21.0-31.0); Prothrombin Time 11.4 Seconds (9.0-12.0)
[2023-02-19] MEDS ORDERED: SODIUM CHLORIDE 0.9% 250 ML IV ONE (18:28)
[2023-02-19] MEDS ORDERED: SODIUM CHLORIDE 0.9% 1000ML 1,000 ML IV SCH ×2 (18:30→23:43)
--- NOTE | 2023-02-19 21:01 | History & Physical Report ---
Date of Service February 19, 2023 Assessment & Plan (1) THANH (acute kidney injury): Plan: 72-year-old male past med significant for hyperlipidemia, prediabetes, chronic systolic heart failure, history of right ventricle tachycardia, s/p AICD, history of AL, morbid obesity, history of bladder cancer s/p surgery, chronic kidney disease stage III,former smoker who was recently in the hospital for acute systolic CHF and is diuresed with IV Lasix and discharged with increased dose of Lasix of 60 mg twice daily and during hospitalization he was also treated for cellulitis of lower extremity with Rocephin and Dapto and discharged on 3 days of doxycycline to rehab was sent in because of worsening renal function. THANH on chronic kidney disease stage III Present with creatinine of 3.3 Baseline creatinine around 1.8-2 Recently diuretics were increased for acute CHF We will hold Lasix and lisinopril Gentle fluids with IV normal saline at 50 mill per hour Repeat labs in a.m. Consult nephrology and cardiology in a.m. Chronic systolic CHF Echo done on 02/08/2023 shows EF of 40 to 45%, mild global hypokinesis of left ventricle, moderate concentric left ventricle hypertrophy, mild to moderate mitral regurgitation Holding diuretics as above and getting gentle fluids as above Holding lisinopril. On metoprolol succinate. Monitor for volume overload History of ventricular arrhythmias S/p AICD. On amiodarone. Hyperlipidemia On statin History of CAD on aspirin statin and beta-javi Morbid obesity Needs counseling Nocturnal pulse ox study while in the hospital Sleep study as outpatient Bladder cancer S/p surgery Follow-up with urology Abdominal hernia Seems stable currently DVT prophylaxis Heparin subcu Disposition telemetry floor Full code History of Present Illness Chief Complaint: THANH Primary Care Provider: Kd Castellon MD 72-year-old male past med significant for hyperlipidemia, prediabetes, chronic systolic heart failure, history of right ventricle tachycardia, s/p AICD, history of AL, morbid obesity, history of bladder cancer s/p surgery, chronic kidney disease stage III,former smoker who was recently in the hospital for acute systolic CHF and is diuresed with IV Lasix and discharged with increased dose of Lasix of 60 mg twice daily and during hospitalization he was also treated for cellulitis of lower extremity with Rocephin and Dapto and discharged on 3 days of doxycycline to rehab was sent in because of worsening renal function. Patient states he supposed to go home but he was told his renal function got worse and he was sent to the hospital. Says he is micturating fine. He denies any chest pain or shortness of breath. No cough. Afebrile. Eating and drinking okay. No dysphagia. No headache. Says he is always dizzy from his meds. No earache or runny nose or sore throat. No nausea or abdominal pain. Normal bowel movements. Currently resting comfortably and hemodynamically stable. He has edema in the lower extremity but he states is much better than in previous admit. He says during last admission he could not even move his left leg because it was heavy from the edema but now is able to move and lift it okay. Past medical history as mentioned above Past surgical history excision of tumor upper arm subcutaneous, excision of soft tissue tumor back or flank, left heart catheterization, cystoscopy, cystourethroscopy with fulguration of bladder tumor, I&D of abscess of right thigh, s/p AICD, repair of inguinal hernia, Social history single, former smoker quit in 1995 smoked 1 pack a day for 10 years, not drinking currently, no drug use,. Family history father of AL at age of 29, mother had heart disorder 2 open heart surgeries age greater than 60, half sister has diabetes and heart disorder Allergies Allergy/AdvReac Type Severity Reaction Status Date / Time No Known Allergies Allergy Verified 02/07/23 13:37 Home Medications Medication Instructions Recorded Confirmed Type acetaminophen 500 mg capsule 1,000 mg PO Q8H PRN Pain #60 caps 02/11/23 02/19/23 Rx amiodarone 200 mg tablet See Rx Instructions .Route 02/11/23 02/19/23 Rx .COMPLEX #30 tabs aspirin 81 mg capsule 81 mg PO DAILY #30 caps 02/11/23 02/19/23 Rx atorvastatin 40 mg tablet 40 mg PO HS #30 tabs 02/11/23 02/19/23 Rx furosemide 40 mg tablet 60 mg PO BID #60 tabs 02/11/23 02/19/23 Rx lisinopril 5 mg tablet 5 mg PO .5:00PM #30 tabs 02/11/23 02/19/23 Rx magnesium oxide 400 mg PO QAM #60 tabs 07/19/23 07/27/23 Rx tadalafil 5 mg tablet 5 mg PO DAILY@1700 #30 tabs 02/11/23 02/19/23 Rx metoprolol succinate 200 mg 200 mg PO HS 02/19/23 02/19/23 History tablet,extended release 24 hr Past Med/Surg History Medical History THANH (acute kidney injury) Bladder cancer CKD (chronic kidney disease), stage III Diabetes Erectile dysfunction Hematuria History of placement of internal cardiac defibrillator Obesity Perinephric hematoma Ventricular arrhythmia Surgical History History of cardiac cath Hx of hernia repair Social History Smoking Status: Never smoker Tobacco Type: Cigarettes Second Hand Exposure: No; Do You Dip or Chew Tobacco: No; Hx Alcohol Use: No Hx Substance Use: No Preferred Language: Turkish Communication Ability: Effective 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 Beliefs That Will Affect Care: None marital status: alone Current Living Situation: Alone current occupational status: retired How many Children do You have: 0 Feels Safe at Home: Yes Diet: regular during the past year weight has: decreased > 10 lbs Physical Activity Frequency: Does not Exercise Do you think of yourself as: straight/heterosexual Gender Identity: Male Assistive Devices: Cane Review of Systems Review of Systems: All systems reviewed & are unremarkable except as noted in Subjective Physical Exam Physical Exam: General- Not in distress Head- atraumatic Eyes- PERRL, ENT- oropharynx clear Neck- supple, Lungs- clear to auscultation and percussion no added sounds heard Heart- regular rate and rhythm; no murmur, no gallop Abdomen- normal bowel sounds, soft, nontender, no dsitension Extremities- b/l lower extremity gross present. no skin rears seen Neuro- alert, oriented x 3; PERRL, no facial palsy; no dysarthria; obeys commands, insight good, moves extremities Skin- warm & dry Results & Data Results & Data Vital Signs (Past 12 Hours) Vital Signs Temp Pulse Resp BP Pulse Ox O2 Del Method 02/19/23 15:54 36.2 C L 76 20 147/78 H 95 Room Air Diagnostic Findings Laboratory Results WBC 6.60 K/ul (4.8-10.8) 02/19/23 17:15 RBC 4.22 M/uL (4.70-6.10) L 02/19/23 17:15 Hgb 13.2 g/dl (14.0-18.0) L 02/19/23 17:15 Hct 40.2 % (42.0-52.0) L 02/19/23 17:15 MCV 95.3 fL (80.0-100.0) 02/19/23 17:15 MCH 31.3 pg (25.0-34.0) 02/19/23 17:15 MCHC 32.8 g/dL (32.0-36.0) 02/19/23 17:15 RDW Std Deviation 47.5 fL (36.4-46.3) H 02/19/23 17:15 RDW Coeff of Adriana 13.6 % (11.5-14.5) 02/19/23 17:15 Plt Count 214 K/uL (130-400) 02/19/23 17:15 MPV 11.5 fL (9.4-12.4) 02/19/23 17:15 Immature Gran % (Auto) 2.3 % 02/19/23 17:15 Neut % (Auto) 66.8 % 02/19/23 17:15 Lymph % (Auto) 14.7 % 02/19/23 17:15 [place] % (Auto) 13.0 % 02/19/23 17:15 Eos % (Auto) 2.6 % 02/19/23 17:15 Baso % (Auto) 0.6 % 02/19/23 17:15 Neut # (Auto) 4.41 K/uL (1.40-6.50) 02/19/23 17:15 Lymph # (Auto) 0.97 K/uL (1.2-3.4) L 02/19/23 17:15 [place] # (Auto) 0.86 K/uL (0.11-0.59) H 02/19/23 17:15 Eos # (Auto) 0.17 K/uL (0-0.50) 02/19/23 17:15 Baso # (Auto) 0.04 K/uL (0-0.2) 02/19/23 17:15 Immature Gran # (Auto) 0.15 K/uL (0.01-0.20) 02/19/23 17:15 PT 11.4 Seconds (9.0-12.0) 02/19/23 17:15 INR 1.0 (0.9-1.1) 02/19/23 17:15 APTT 26.9 Seconds (21.0-31.0) 02/19/23 17:15 PTT Ratio 1.0 02/19/23 17:15 Sodium 135 mmol/L (136-145) L 02/19/23 17:15 Potassium 5.4 mmol/L (3.5-5.1) H 02/19/23 17:15 Chloride 95 mmol/L (98-107) L 02/19/23 17:15 Carbon Dioxide 34 mmol/L (21-32) H 02/19/23 17:15 Anion Gap 6 (3-11) 02/19/23 17:15 BUN 73 mg/dl (6-23) H 02/19/23 17:15 Creatinine 3.37 mg/dl (0.6-1.4) H 02/19/23 17:15 Est Cr Clr Drug Dosing Not Reportable 02/19/23 17:15 Est GFR ( Amer) 20.1 ml/min 02/19/23 17:15 Est GFR (Non-Af Amer) 17.4 ml/min 02/19/23 17:15 BUN/Creatinine Ratio 21.7 (10-20) H 02/19/23 17:15 Glucose 100 mg/dl (70-99(Fasting)) H 02/19/23 17:15 Calcium 8.8 mg/dl (8.6-10.3) 02/19/23 17:15 Magnesium 2.6 mg/dl (1.7-2.4) H 02/19/23 17:15 Total Bilirubin 0.5 mg/dl (0.2-1.0) 02/19/23 17:15 AST 22 U/L (13-39) 02/19/23 17:15 ALT 22 U/L (7-52) 02/19/23 17:15 Alkaline Phosphatase 93 U/L (34-104) 02/19/23 17:15 Troponin I High Sens 9.3 pg/ml (0-20) 02/19/23 17:15 B-Natriuretic Peptide 178 pg/ml (0-100) H 02/19/23 17:15 Total Protein 7.2 gm/dl (6.0-8.3) 02/19/23 17:15 Albumin 3.8 gm/dl (3.4-5.0) 02/19/23 17:15 Globulin 3.4 gm/dl (2.5-4.0) 02/19/23 17:15 Albumin/Globulin Ratio 1.1 (0.9-2) 02/19/23 17:15 Urine Color Yellow 02/19/23 16:00 Urine Appearance Clear (Clear) 02/19/23 16:00 Urine pH 7.5 (4.5-7.5) 02/19/23 16:00 Ur Specific [place] 1.008 (1.000-1.030) 02/19/23 16:00 Urine Protein Negative (Negative) 02/19/23 16:00 Urine Glucose (UA) Negative (Negative) 02/19/23 16:00 Urine Ketones Negative (Negative) 02/19/23 16:00 Urine Blood Negative (Negative) 02/19/23 16:00 Urine Nitrite Negative (Negative) 02/19/23 16:00 Urine Bilirubin Negative (Negative) 02/19/23 16:00 Urine Urobilinogen Negative (Negative) 02/19/23 16:00 Ur Leukocyte Esterase Negative (Negative) 02/19/23 16:00 Impressions Chest X-Ray 02/19/23 15:56 XR chest 1V not portable CLINICAL HISTORY: Dyspnea COMPARISON STUDY: Chest radiograph February 07, 2023. FINDINGS: A left subclavian pacer/AICD is in place. There is no pneumothorax or pleural effusion. There is no consolidation to suggest pneumonia. Cardiomegaly is unchanged. Pulmonary vascular congestion is unchanged. IMPRESSION: Cardiomegaly and pulmonary vascular congestion, similar to prior exam. ACT 112: Negative or not required by law. Electronically signed by: Bruno Palma M.D. 02/19/2023 4:51 PM ECG Additional Comments: ECG AV dual paced rhythm with rate of 60 Code Status & VTE Plan VTE Prophylaxis Plan VTE Prophylaxis will be ordered: Yes
[2023-02-19] MEDS ORDERED: ACETAMINOPHEN 325 MG TAB PO PRN (23:43)
[2023-02-19] MEDS ORDERED: POLYETHYLENE (MIRALAX) 17 GM PACK PO PRN (23:43)
[2023-02-19] MEDS ORDERED: NITROGLYCERIN SL 0.4 MG/TAB TAB SL PRN (23:43)
[2023-02-20] MEDS: HEPARIN SOD 5,000 UNIT/0.5 ML VIAL SQ SCH ×3 (00:25→19:52)
[2023-02-20] MEDS: METOPROLOL SUCC 50MG EXT REL TAB PO SCH ×2 (00:25→19:43)
[2023-02-20] MEDS: ATORVASTATIN 40 MG TAB PO SCH ×2 (00:25→19:50)
[2023-02-20] MEDS: AMIODARONE 200 MG TAB PO SCH ×3 (00:26→19:51)
--- NOTE | 2023-02-20 02:06 | Emergency Department Note ---
Impression & Plan [id number] kidney injury, Dehydration, Morbid obesity ED Provider Note CHIEF COMPLAINT: Abnormal labs HISTORY OF PRESENT ILLNESS: This 72-year-old male patient with past medical history of CHF, chronic kidney disease, bladder cancer, heart failure, obesity, cellulitis of the lower extremity, renal hematoma, AICD, nonischemic cardiomyopathy, diabetes, ventricular arrhythmia presents to the emergency department with complaints of abnormal laboratory work. The patient states he is staying at [facility] for rehabilitation after stay at [facility] for fluid retention. He was diuresed with IV Lasix and his home dosing was increased. Laboratory work at the nursing facility today revealed elevated BUN and creatinine. He was sent into the emergency department for evaluation of acute renal failure. REVIEW OF SYSTEMS: A review of systems was performed with positives and pertinent negatives listed in the history of present illness. 10 systems were reviewed and are otherwise negative. ALLERGIES: see below MEDICATIONS: see below PMH: see below SOCIAL HISTORY: see below DDx: THANH, chronic kidney disease, electrolyte abnormality, dehydration, me dication effect, infectious etiology such as UTI, pyelonephritis, obstructing renal calculus, among others PHYSICAL EXAM: Vital signs reviewed. General: Chronically ill-appearing 72-year-old male, no significant distress HEENT: No scleral icterus, PERRLA, neck supple. Atraumatic. Cardiovascular: Regular rate and rhythm, no extra sounds. Distant heart tones Pulmonary: Crackles to the bases upon auscultation bilaterally, normal work of breathing. Abdomen: Soft, nontender, nondistended, positive bowel sounds. Musculoskeletal: Atraumatic, moderate peripheral edema. Neurologic: Patient awake alert and oriented x 3, speech is clear Skin: Warm, dry, no rash EMERGENCY DEPARTMENT COURSE/MDM: This patient was evaluated and appeared to be in no significant distress. External medical records were reviewed. IV access was obtained and laboratory work was drawn. 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 Laboratory work reveals acute on chronic kidney injury. Patient is likely experiencing kidney injury secondary to his diuresis. There is very little urine in his bladder upon bladder scan. Gentle IV hydration was initiated. Patient was felt to require IV hydration and monitoring of his kidney function over the next several days. The patient was discussed with hospitalist service to evaluate the patient for admission and further management. MONITORING: An order for cardiac monitoring was placed and the patient is noted to be in a AV paced rhythm at 70 beats per minute. RADIOLOGY: Chest x-ray to my interpretation reveals cardiomegaly with pulmonary vascular congestion. Otherwise defer to radiology EKG: To my interpretation reveals an AV dual paced rhythm at 60 bpm. QTc is 544. No PVC, no PAC. Normal ST segments. When compared to previous dated February 07, 2023, PVCs are no longer present DISPOSITION: Admission Past Med/Surg History Medical History THANH (acute kidney injury) Bladder cancer CKD (chronic kidney disease), stage III Diabetes Erectile dysfunction Hematuria History of placement of internal cardiac defibrillator Obesity Perinephric hematoma Ventricular arrhythmia Surgical History History of cardiac cath Hx of hernia repair Social History Smoking Status: Never smoker Tobacco Type: Cigarettes Second Hand Exposure: No; Do You Dip or Chew Tobacco: No; Tobacco Cessation Education Requested by Patient: No Hx Alcohol Use: Yes Alcohol type: beer Hx Substance Use: No Preferred Language: Amharic Communication Ability: Effective 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 Beliefs That Will Affect Care: None marital status: alone Current Living Situation: Rehab current occupational status: retired How many Children do You have: 0 Other Information That Helps Us Care for You: No Feels Safe at Home: Yes Safety Concerns: Feels Safe At This Time Diet: regular during the past year weight has: decreased > 10 lbs Physical Activity Frequency: Does not Exercise Do you think of yourself as: straight/heterosexual Gender Identity: Male Assistive Devices: Cane Allergies Allergies Allergy/AdvReac Type Severity Reaction Status Date / Time yellow dye Allergy Unknown Hives Verified 02/20/23 19:29 Home Meds Home Medications Medication Instructions Recorded Confirmed metoprolol succinate 200 mg 200 mg PO HS 02/19/23 02/19/23 tablet,extended release 24 hr Previous Rx's Medication Instructions Recorded acetaminophen 500 mg capsule 1,000 mg PO Q8H PRN Pain #60 caps 02/11/23 amiodarone 200 mg tablet See Rx Instructions .Route 02/11/23 .COMPLEX #30 tabs aspirin 81 mg capsule 81 mg PO DAILY #30 caps 02/11/23 atorvastatin 40 mg tablet 40 mg PO HS #30 tabs 02/11/23 furosemide 40 mg tablet 60 mg PO BID #60 tabs 02/11/23 lisinopril 5 mg tablet 5 mg PO .5:00PM #30 tabs 02/11/23 magnesium oxide 400 mg PO QAM #60 tabs 02/11/23 tadalafil 5 mg tablet 5 mg PO DAILY@1700 #30 tabs 02/11/23 Results & Data (ED) Vital Signs Vital Signs - 24 hr 02/19/23 15:54 Temperature 36.2 C L Temperature Source Temporal Artery Scan Pulse Rate 76 Pulse Rhythm Regular Pulse Strength Normal Respiratory Rate 20 Respiratory Effort / Characteristics Non-Labored Spontaneous Respiratory Depth Normal Respiratory Pattern Regular Blood Pressure 147/78 H Blood Pressure Mean 101 Blood Pressure Position Sitting Pulse Oximetry 95 Oxygen Delivery Method Room Air Sepsis Recent Fever Within 48 Hours No Sepsis New/Unexplained Change in Mental Status No Sepsis Action Taken by Nursing No Action Required Home Medications Current Medication List: was personally reviewed by me Laboratory Data Attestation: I reviewed the patient's lab results. 02/19/23 17:15 02/19/23 17:15 Lab Results 02/19/23 02/19/23 02/19/23 Range/Units 16:00 17:15 17:15 WBC 6.60 (4.8-10.8) K/ul RBC 4.22 L (4.70-6.10) M/uL Hgb 13.2 L (14.0-18.0) g/dl Hct 40.2 L (42.0-52.0) % MCV 95.3 (80.0-100.0) fL MCH 31.3 (25.0-34.0) pg MCHC 32.8 (32.0-36.0) g/dL RDW Std Deviation 47.5 H (36.4-46.3) fL RDW Coeff of Adriana 13.6 (11.5-14.5) % Plt Count 214 (130-400) K/uL MPV 11.5 (9.4-12.4) fL Immature Gran % (Auto) 2.3 % Neut % (Auto) 66.8 % Lymph % (Auto) 14.7 % Scott % (Auto) 13.0 % Eos % (Auto) 2.6 % Baso % (Auto) 0.6 % Neut # (Auto) 4.41 (1.40-6.50) K/uL Lymph # (Auto) 0.97 L (1.2-3.4) K/uL Scott # (Auto) 0.86 H (0.11-0.59) K/uL Eos # (Auto) 0.17 (0-0.50) K/uL Baso # (Auto) 0.04 (0-0.2) K/uL Immature Gran # (Auto) 0.15 (0.01-0.20) K/uL PT 11.4 (9.0-12.0) Seconds INR 1.0 (0.9-1.1) APTT 26.9 (21.0-31.0) Seconds PTT Ratio 1.0 Sodium (136-145) mmol/L Potassium (3.5-5.1) mmol/L Chloride (98-107) mmol/L Carbon Dioxide (21-32) mmol/L Anion Gap (3-11) BUN (6-23) mg/dl Creatinine (0.6-1.4) mg/dl Est Cr Clr Drug Dosing Est GFR ( Amer) ml/min Est GFR (Non-Af Amer) ml/min BUN/Creatinine Ratio (10-20) Glucose (70-99(Fasting)) mg/dl Calcium (8.6-10.3) mg/dl Magnesium (1.7-2.4) mg/dl Total Bilirubin (0.2-1.0) mg/dl AST (13-39) U/L ALT (7-52) U/L Alkaline Phosphatase (34-104) U/L Troponin I High Sens (0-20) pg/ml B-Natriuretic Peptide (0-100) pg/ml Total Protein (6.0-8.3) gm/dl Albumin (3.4-5.0) gm/dl Globulin (2.5-4.0) gm/dl Albumin/Globulin Ratio (0.9-2) Urine Color Yellow Urine Appearance Clear (Clear) Urine pH 7.5 (4.5-7.5) Ur Specific [place] 1.008 (1.000-1.030) Urine Protein Negative (Negative) Urine Glucose (UA) Negative (Negative) Urine Ketones Negative (Negative) Urine Blood Negative (Negative) Urine Nitrite Negative (Negative) Urine Bilirubin Negative (Negative) Urine Urobilinogen Negative (Negative) Ur Leukocyte Esterase Negative (Negative) 02/19/23 02/19/23 Range/Units 17:15 17:15 WBC (4.8-10.8) K/ul RBC (4.70-6.10) M/uL Hgb (14.0-18.0) g/dl Hct (42.0-52.0) % MCV (80.0-100.0) fL MCH (25.0-34.0) pg MCHC (32.0-36.0) g/dL RDW Std Deviation (36.4-46.3) fL RDW Coeff of Adriana (11.5-14.5) % Plt Count (130-400) K/uL MPV (9.4-12.4) fL Immature Gran % (Auto) % Neut % (Auto) % Lymph % (Auto) % Scott % (Auto) % Eos % (Auto) % Baso % (Auto) % Neut # (Auto) (1.40-6.50) K/uL Lymph # (Auto) (1.2-3.4) K/uL Scott # (Auto) (0.11-0.59) K/uL Eos # (Auto) (0-0.50) K/uL Baso # (Auto) (0-0.2) K/uL Immature Gran # (Auto) (0.01-0.20) K/uL PT (9.0-12.0) Seconds INR (0.9-1.1) APTT (21.0-31.0) Seconds PTT Ratio Sodium 135 L (136-145) mmol/L Potassium 5.4 H (3.5-5.1) mmol/L Chloride 95 L (98-107) mmol/L Carbon Dioxide 34 H (21-32) mmol/L Anion Gap 6 (3-11) BUN 73 H (6-23) mg/dl Creatinine 3.37 H (0.6-1.4) mg/dl Est Cr Clr Drug Dosing Not Reportable Est GFR ( Amer) 20.1 ml/min Est GFR (Non-Af Amer) 17.4 ml/min BUN/Creatinine Ratio 21.7 H (10-20) Glucose 100 H (70-99(Fasting)) mg/dl Calcium 8.8 (8.6-10.3) mg/dl Magnesium 2.6 H (1.7-2.4) mg/dl Total Bilirubin 0.5 (0.2-1.0) mg/dl AST 22 (13-39) U/L ALT 22 (7-52) U/L Alkaline Phosphatase 93 (34-104) U/L Troponin I High Sens 9.3 (0-20) pg/ml B-Natriuretic Peptide 178 H (0-100) pg/ml Total Protein 7.2 (6.0-8.3) gm/dl Albumin 3.8 (3.4-5.0) gm/dl Globulin 3.4 (2.5-4.0) gm/dl Albumin/Globulin Ratio 1.1 (0.9-2) Urine Color Urine Appearance (Clear) Urine pH (4.5-7.5) Ur Specific [place] (1.000-1.030) Urine Protein (Negative) Urine Glucose (UA) (Negative) Urine Ketones (Negative) Urine Blood (Negative) Urine Nitrite (Negative) Urine Bilirubin (Negative) Urine Urobilinogen (Negative) Ur Leukocyte Esterase (Negative) Administered Medications Amiodarone HCl (Amiodarone 200 Mg Tab) 200 mg PO [facility] Stop: 03/21/23 23:44 Last Admin: 02/21/23 19:55 Dose: 200 mg Documented By: Admin: 02/20/23 19:51 Dose: 200 mg Documented By: Admin: 02/20/23 00:26 Dose: 200 mg Documented By: EDWIGE Amiodarone HCl (Amiodarone 200 Mg Tab) 100 mg PO [facility] Stop: 03/22/23 08:59 Last Admin: 02/21/23 10:29 Dose: 100 mg Documented By: Admin: 02/20/23 08:32 Dose: 100 mg Documented By: JANETH Aspirin (Aspirin 81 Mg Ectab) 81 mg PO DAILY [facility] Stop: 03/22/23 08:59 Last Admin: 02/21/23 10:32 Dose: 81 mg Documented By: Admin: 02/20/23 08:32 Dose: 81 mg Documented By: JANETH Atorvastatin Calcium (Atorvastatin 40 Mg Tab) 40 mg PO [facility] Stop: 03/21/23 23:42 Last Admin: 02/21/23 20:53 Dose: 40 mg Documented By: Admin: 02/20/23 19:50 Dose: 40 mg Documented By: Admin: 02/20/23 00:25 Dose: 40 mg Documented By: EDWIGE Furosemide (Furosemide 40 Mg/4 Ml Vial) 80 mg IV Q12H [facility] Stop: 03/22/23 15:29 Last Admin: 02/21/23 16:29 Dose: 80 mg Documented By: Admin: 02/21/23 04:22 Dose: 80 mg Documented By: Admin: 02/20/23 16:15 Dose: 80 mg Documented By: JANETH Heparin Sodium (Porcine) (Heparin Sod 5,000 Unit/0.5 Ml Vial) 7,500 units SQ Q12 [facility] Stop: 03/21/23 23:42 Last Admin: 02/21/23 19:56 Dose: 7,500 units Documented By: Admin: 02/21/23 08:05 Dose: 7,500 units Documented By: Admin: 02/20/23 19:52 Dose: 7,500 units Documented By: Admin: 02/20/23 08:32 Dose: 7,500 units Documented By: Admin: 02/20/23 00:25 Dose: 7,500 units Documented By: EDWIGE Magnesium Oxide (Magnesium Oxide 400 Mg Tab) 400 mg PO QAM [facility] Stop: 03/22/23 08:59 Last Admin: 02/21/23 08:07 Dose: 400 mg Documented By: Admin: 02/20/23 08:33 Dose: 400 mg Documented By: JANETH Metoprolol Succinate (Metoprolol Succ 50mg Ext Rel Tab) 200 mg PO [facility] Stop: 03/21/23 23:42 Last Admin: 02/21/23 19:55 Dose: 200 mg Documented By: Admin: 02/20/23 19:43 Dose: Not Given Documented By: Admin: 02/20/23 00:25 Dose: 200 mg Documented By: EDWIGE Miscellaneous (Tadalafil~Order Awaiting Action) 1 each N/A QS [facility] Stop: 03/22/23 07:59 Last Admin: 02/21/23 20:57 Dose: Not Given Documented By: Admin: 02/21/23 16:29 Dose: Not Given Documented By: Admin: 02/21/23 08:07 Dose: Not Given Documented By: Admin: 02/20/23 23:52 Dose: Not Given Documented By: Admin: 02/20/23 16:15 Dose: Not Given Documented By: Admin: 02/20/23 08:29 Dose: Not Given Documented By: JANETH Discontinued Medications Furosemide (Furosemide 40 Mg/4 Ml Vial) 40 mg IV Q12H [facility] Stop: 03/22/23 15:14 Last Admin: 02/20/23 15:41 Dose: Not Given Documented By: JANETH Sodium Chloride (Nss) 250 mls @ 999 mls/hr IV .Q16M ONE Stop: 02/19/23 18:43 Last Infusion: 02/19/23 22:26 Dose: 0 mls/hr Documented By: Admin: 02/19/23 21:56 Dose: 999 mls/hr Documented By: TBS Sodium Chloride (Nss 1000ml) 1,000 mls @ 80 mls/hr IV .[id number] [facility] Stop: 03/21/23 18:29 Last Infusion: 02/20/23 06:49 Dose: 0 mls/hr Documented By: Admin: 02/19/23 21:56 Dose: 80 mls/hr Documented By: TBS Sodium Chloride (Nss 1000ml) 1,000 mls @ 50 mls/hr IV .Q20H [facility] Stop: 03/21/23 23:42 Last Infusion: 02/20/23 13:06 Dose: 0 mls/hr Documented By: JBAlejandro Admin: 02/20/23 00:26 Dose: 50 mls/hr Documented By: EDWIGE Imaging Data Radiologist's Impression: Chest X-Ray 02/19/23 15:56 XR chest 1V not portable CLINICAL HISTORY: Dyspnea COMPARISON STUDY: Chest radiograph February 07, 2023. FINDINGS: A left subclavian pacer/AICD is in place. There is no pneumothorax or pleural effusion. There is no consolidation to suggest pneumonia. Cardiomegaly is unchanged. Pulmonary vascular congestion is unchanged. IMPRESSION: Cardiomegaly and pulmonary vascular congestion, similar to prior exam. ACT 112: Negative or not required by law. Electronically signed by: Bruno Palma M.D. 02/19/2023 4:51 PM Discharge Plan Visit Data Chief Complaint: Abnormal Labs/Diagnostic Testing Stated Complaint: ABNORMAL LABS ED Provider: Sendy Mora Discharge Problem: Imceh-lb-yuhcrto kidney injury, Dehydration, Morbid obesity Patient Disposition: Admitted As Inpatient Discharge Instructions Interventions: ED Discharge Assessment Last Done: 02/19/23 22:30 [id number] kidney injury Qualifiers: Acute renal failure type: unspecified Chronic kidney disease stage: stage 3 (moderate) Chronic kidney disease stage 3 subtype: stage 3a (GFR 45-59) Qualified Code(s): N17.9 - Acute kidney failure, unspecified
[2023-02-20 07:13] LABS: BUN Creatinine Ratio 22.3 (10-20); Calcium 8.4 mg/dl (8.6-10.3); Creatinine Clr Calc Pharmacy 35.7 ml/min; Est GFR (African American) 23.5 ml/min; Est GFR (Non-African American) 20.3 ml/min; Magnesium 2.6 mg/dl (1.7-2.4); Potassium 5.3 mmol/L (3.5-5.1)
[2023-02-20] MEDS: TADALAFIL~ORDER AWAITING ACTION SCH ×3 (08:29→23:52)
[2023-02-20] MEDS: ASPIRIN 81 MG ECTAB PO SCH (08:32)
[2023-02-20] MEDS: MAGNESIUM OXIDE 400 MG TAB PO SCH (08:33)
[2023-02-20 09:24] LABS: Basophils # (auto) 0.04 K/uL (0-0.2); Basophils % (auto) 0.6 %; Eosinophils # (auto) 0.15 K/uL (0-0.50); Eosinophils % (auto) 2.2 %; Hematocrit (blood only) 37.1 % (42.0-52.0); Immature Granulocytes # (auto) 0.13 K/uL (0.01-0.20); Immature Granulocytes % (auto) 1.9 %; Lymphocytes # (auto) 0.95 K/uL (1.2-3.4); Lymphocytes % (auto) 14.2 %; Mean Corpuscular Hemoglobin 31.8 pg (25.0-34.0); Mean Corpuscular Hgb Conc 32.3 g/dL (32.0-36.0); Mean Corpuscular Volume 98.4 fL (80.0-100.0); Mean Platelet Volume 12.2 fL (9.4-12.4); Monocytes # (auto) 0.99 K/uL (0.11-0.59); Monocytes % (auto) 14.8 %; Neutrophils # (auto) 4.45 K/uL (1.40-6.50); Neutrophils % (auto) 66.3 %; Platelet Count 199 K/uL (130-400); RDW Coefficient of Variation 13.7 % (11.5-14.5); RDW Standard Deviation 49.8 fL (36.4-46.3); Red Blood Count 3.77 M/uL (4.70-6.10); White Blood Count 6.71 K/ul (4.8-10.8)
--- NOTE | 2023-02-20 10:31 | Electrocardiogram Report ---
Test Reason : Blood Pressure : / mmHG Vent. Rate : 060 BPM Atrial Rate : 060 BPM P-R Int : 000 ms QRS Dur : 166 ms QT Int : 544 ms P-R-T Axes : 021 265 078 degrees QTc Int : 544 ms AV dual-paced rhythm Abnormal ECG When compared with ECG of 07-FEB-2023 11:03, Premature ventricular complexes are no longer Present Vent. rate has decreased BY 3 BPM Confirmed by Valentín Zelaya ([id number]) on 02/20/2023 10:31:31 AM Referred By: REFERRED SELF Confirmed By:Valentín Zelaya
--- NOTE | 2023-02-20 11:26 | Cardiology Consultation ---
Date of Consultation February 20, 2023 Assessment & Plan (1) Acute kidney injury superimposed on chronic kidney disease: (2) Acute on chronic systolic heart failure: (3) Morbid obesity: - Creatinine 2.96 this morning, potassium 5.3, recent baseline creatinine in the range of 1.6-2 mg/dL. -Patient does not have worsening shortness of breath, but certainly has 2-3+ bilateral lower extremity edema with erythema which she states is chronic and he does not feel that it is changed significantly recently. -He has a history of urinary outflow tract obstruction and previous transurethral prostate resection in 2021, but he is voiding well with no recurrent hematuria. Although his creatinine improved slightly with having received a liter of fluid overnight, I am inclined to put him back on IV diuretics perhaps the 40 mg dose that he was on previously during his hospital stay. We will await nephrology input prior to starting this. Continue to hold lisinopril due to mild hyperkalemia. History of Present Illness Attending Physician: Baldomero Mccartney MD History of Present Illness Mr Cantor is seen in cardiology consultation per the request of Dr. Lambert for ongoing management of chronic systolic heart failure with progressive renal insufficiency. Patient with noted recent admission earlier this month from 02/07/2023 until and was treated for acute on chronic heart failure with reduced ejection fraction. History otherwise notable for morbid obesity and sleep apnea. Chronic kidney disease is noted with baseline creatinine in the range of 1.6-2 per recent outpatient and inpatient records. He follows closely with Dr. Yasmany Campbell of [facility] urology and has undergone transurethral resection of the prostate in February, and transurethral resection of bladder tumor in 2021. His most recent cystoscopy took place in October, with stable findings. Outpatient treatment includes daily Cialis for prostate symptoms. During his recent stay he had been noted to have progressive lower extremity edema and erythema in 20 pound weight gain. He received treatment with furosemide 40 mg IV twice daily as well as IV Rocephin and daptomycin for presumed cellulitis. He was discharged to [facility] for rehab on dose of furosemide 60 mg twice daily compared to his previous home dose of furosemide 40 mg twice daily. Patient reports he was supposed to be discharged from rehab but was found to have worsening kidney function and was therefore sent to the hospital for assessment. He denies any worsening chest discomfort or shortness of breath. Significant lower extremity edema is noted. His presenting creatinine was 3.37 yesterday increased compared to 1.86 on 02/11/2023. He received a liter of normal saline overnight with subsequent discontinued his creatinine is down to 2.96 this morning. Cardiology problem list 1. Nonischemic cardiomyopathy diagnosed 2009 2. Chronic systolic heart failure 3. Morbid obesity 4. Prior sustained ventricular tachycardia on chronic amiodarone therapy 5. Status post biventricular pacemaker insertion 12/30/2019 6. Obstructive sleep apnea 7. Bladder carcinoma status post resection prior hematuria Allergies Allergy/AdvReac Type Severity Reaction Status Date / Time No Known Allergies Allergy Verified 02/07/23 13:37 Home Medications Medication Instructions Recorded Confirmed Type acetaminophen 500 mg capsule 1,000 mg PO Q8H PRN Pain #60 caps 02/11/23 02/19/23 Rx amiodarone 200 mg tablet See Rx Instructions .Route 02/11/23 02/19/23 Rx .COMPLEX #30 tabs aspirin 81 mg capsule 81 mg PO DAILY #30 caps 02/11/23 02/19/23 Rx atorvastatin 40 mg tablet 40 mg PO HS #30 tabs 02/11/23 02/19/23 Rx furosemide 40 mg tablet 60 mg PO BID #60 tabs 02/11/23 02/19/23 Rx lisinopril 5 mg tablet 5 mg PO .5:00PM #30 tabs 02/11/23 02/19/23 Rx magnesium oxide 400 mg PO QAM #60 tabs 02/11/23 02/19/23 Rx tadalafil 5 mg tablet 5 mg PO DAILY@1700 #30 tabs 02/11/23 02/19/23 Rx metoprolol succinate 200 mg 200 mg PO HS 02/19/23 02/19/23 History tablet,extended release 24 hr Patient History Medical History THANH (acute kidney injury) Bladder cancer CKD (chronic kidney disease), stage III Diabetes Erectile dysfunction Hematuria History of placement of internal cardiac defibrillator Obesity Perinephric hematoma Ventricular arrhythmia Surgical History History of cardiac cath Hx of hernia repair Social History Smoking Status: Never smoker Tobacco Type: Cigarettes Second Hand Exposure: No; Do You Dip or Chew Tobacco: No; Tobacco Cessation Education Requested by Patient: No Hx Alcohol Use: Yes Alcohol type: beer Hx Substance Use: No Preferred Language: Malawian Communication Ability: Effective Used Car Lot Attendant Required: No Beliefs That Will Affect Care: None marital status: alone Current Living Situation: Rehab current occupational status: retired How many Children do You have: 0 Other Information That Helps Us Care for You: No Feels Safe at Home: Yes Safety Concerns: Feels Safe At This Time Diet: regular during the past year weight has: decreased > 10 lbs Physical Activity Frequency: Does not Exercise Do you think of yourself as: straight/heterosexual Gender Identity: Male Assistive Devices: Cane, Denture - Upper and Glasses Review of Systems Review of Systems: All systems reviewed & are unremarkable except as noted in HPI & below Physical Exam Constitutional: WD/WN, vitals as above + morbidly obese Respiratory: no labored breathing Auscultation: + diminished lung sounds (Mildly reduced breath sounds bilaterally at the bases) Cardiovascular: Rate/Rhythm: regular rate Vessels: no JVD Extremities: + edema (2-3+ bilateral lower extremity edema, erythema) Gastrointestinal (Abdomen): normal bowel sounds, soft, nontender, no hepatosplenomegaly Neurologic: PERRL, EOMI, accommodation nl, no face palsy, no dysarthria Results & Data Vital Signs (Past 12 Hours) Vital Signs Temp Pulse Pulse Resp BP BP Pulse Ox 02/20/23 07:30 60 02/20/23 07:53 02/20/23 07:21 36.5 C 64 18 110/72 93 02/20/23 04:26 36.4 C L 66 22 85/52 L 91 02/20/23 04:01 36.4 C L 71 20 113/72 49 L 02/20/23 00:51 O2 Del Method 02/20/23 07:30 02/20/23 07:53 Room Air 02/20/23 07:21 Room Air 02/20/23 04:26 Room Air 02/20/23 04:01 Room Air 02/20/23 00:51 Room Air Laboratory Results Cardiac Enzymes 02/19/23 02/19/23 Range/Units 17:15 17:15 AST 22 (13-39) U/L Troponin I High Sens 9.3 (0-20) pg/ml B-Natriuretic Peptide 178 H (0-100) pg/ml Coagulation 02/19/23 02/19/23 Range/Units 17:15 17:15 PT 11.4 (9.0-12.0) Seconds APTT 26.9 (21.0-31.0) Seconds B-Natriuretic Peptide 178 H (0-100) pg/ml CBC 02/19/23 02/20/23 Range/Units 17:15 05:38 WBC 6.60 6.71 (4.8-10.8) K/ul RBC 4.22 L 3.77 L (4.70-6.10) M/uL Hgb 13.2 L 12.0 L (14.0-18.0) g/dl Hct 40.2 L 37.1 L (42.0-52.0) % Plt Count 214 199 (130-400) K/uL Neut # (Auto) 4.41 4.45 (1.40-6.50) K/uL Lymph # (Auto) 0.97 L 0.95 L (1.2-3.4) K/uL [place] # (Auto) 0.86 H 0.99 H (0.11-0.59) K/uL Eos # (Auto) 0.17 0.15 (0-0.50) K/uL Baso # (Auto) 0.04 0.04 (0-0.2) K/uL Comprehensive Metabolic Panel 02/19/23 02/20/23 Range/Units 17:15 05:38 Sodium 135 L 137 (136-145) mmol/L Potassium 5.4 H 5.3 H (3.5-5.1) mmol/L Chloride 95 L 100 (98-107) mmol/L Carbon Dioxide 34 H 32 (21-32) mmol/L BUN 73 H 66 H (6-23) mg/dl Creatinine 3.37 H 2.96 H D (0.6-1.4) mg/dl Glucose 100 H 110 H (70-99(Fasting)) mg/dl Calcium 8.8 8.4 L (8.6-10.3) mg/dl AST 22 (13-39) U/L ALT 22 (7-52) U/L Alkaline Phosphatase 93 (34-104) U/L Total Protein 7.2 (6.0-8.3) gm/dl Albumin 3.8 (3.4-5.0) gm/dl Diagnostic Findings Check stat x-ray with mild pulmonary vascular congestion, relatively unchanged compared to 02/07/2023 EKG 02/19/2023, AV sequential pacing, occasional PVCs. Echocardiogram performed 02/08/2023: Moderate concentric left ventricular perjury, apical wall motion abnormality likely reflective of pacemaker activation LVEF 40-45% Moderate aortic valve sclerosis without stenosis Mild to moderate mitral regurgitation
--- NOTE | 2023-02-20 15:00 | Nephrology Progress Note ---
Date of Service February 20, 2023 Assessment & Plan Admission and Anticipated Discharge Date Admission Date: February 19, 2023 Results & Data Vital Signs (Past 12 Hours) Vital Signs Temp Pulse Pulse Resp BP BP Pulse Ox 02/20/23 11:00 36.5 C 72 18 114/68 97 02/20/23 07:30 60 02/20/23 07:53 02/20/23 07:21 36.5 C 64 18 110/72 93 02/20/23 04:26 36.4 C L 66 22 85/52 L 91 02/20/23 04:01 36.4 C L 71 20 113/72 49 L O2 Del Method 02/20/23 11:00 Room Air 02/20/23 07:30 02/20/23 07:53 Room Air 02/20/23 07:21 Room Air 02/20/23 04:26 Room Air 02/20/23 04:01 Room Air
--- NOTE | 2023-02-20 15:11 | Nephrology Consultation ---
Date of Consultation February 20, 2023 Assessment & Plan (1) RICKIE (acute kidney injury): Acute kidney injury but associated with significant fluid overload and massive edema. Every rise in creatinine after Lasix increase is not necessarily related with Lasix. He has many many reasons to have acute rise in creatinine including underlying acute tubular ischemia. Also worth noting that worsening CHF in itself can cause worsening renal function. Also with his difficult to assess hydration status given morbid obesity as well as underlying congestive heart failure as well as chronic venous insufficiency it is hard to pinpoint what his baseline creatinine is. he does not need any more IV fluid Continue to hold lisinopril Give Lasix 80 mg IV twice daily. This may not be enough though. (2) Acute on chronic systolic heart failure: He does have significant edema with 20 pound weight gain in about a week time associated with acute kidney injury. However I really do not believe that the rising creatinine is necessarily related with recent use of Lasix. He needs to be diuretic History of Present Illness Reason for Consultation: Rickie on CKD Attending Physician: Baldomero Mccartney MD History of Present Illness 72/M-Morbid Obesity, chronic systolic heart failure LVEf 35%, history of ventricle tachycardia, s/p AICD, history of [place], history of bladder cancer s/p surgery, chronic kidney disease stage III,former smoker who was recently in the hospital for acute systolic CHF and was diuresed with IV Lasix and discharged with increased dose of Lasix of 60 mg twice daily and during hospitalization he was also treated for cellulitis of lower extremity with Rocephin and Dapto and discharged on 3 days of doxycycline to rehab in [place]. He was sent to hospital yesterday because of worsening renal function. Says he is micturating fine. He denies any chest pain or shortness of breath. No cough. Afebrile.Eating and drinking okay. No dysphagia. No headache.Says he is always dizzy from his meds. No earache or runny nose or sore throat. No nausea or abdominal pain. Normal bowel movements. Currently resting comfortably and hemodynamically stable but does have massive b/l edema with Skin changes.says wt is up by 20 lbs since last discharge. Creat was about 2 last admission and was 3+ yesterday. got 1 liter of iv fluid and is down a bit today. Iv fluids stopped. No lasix yet. Past surgical history excision of tumor upper arm subcutaneous, excision of soft tissue tumor back or flank, left heart catheterization, cystoscopy, cystourethroscopy with fulguration of bladder tumor, I&D of abscess of right thigh, s/p AICD, repair of inguinal hernia, Social history single, former smoker quit in 1995 smoked 1 pack a day for 10 years, not drinking currently, no drug use,. Family history father of [place] at age of 29, mother had heart disorder 2 open heart surgeries age greater than 60, half sister has diabetes and heart disorder Review of systems----is complaining of lot of lower extremity edema with some discomfort but still feels it is somewhat less than previous admission. However does feel he has gained 20 pounds since being discharged from the hospital last time. Denies shortness of breath at rest. He states he is urinating fine. Denies any pain nausea vomiting diarrhea. Total 12 systems reviewed and negative Allergies Allergy/AdvReac Type Severity Reaction Status Date / Time No Known Allergies Allergy Verified 02/07/23 13:37 Home Medications Medication Instructions Recorded Confirmed Type acetaminophen 500 mg capsule 1,000 mg PO Q8H PRN Pain #60 caps 02/11/23 02/19/23 Rx amiodarone 200 mg tablet See Rx Instructions .Route 02/11/23 02/19/23 Rx .COMPLEX #30 tabs aspirin 81 mg capsule 81 mg PO DAILY #30 caps 02/11/23 02/19/23 Rx atorvastatin 40 mg tablet 40 mg PO HS #30 tabs 02/11/23 02/19/23 Rx furosemide 40 mg tablet 60 mg PO BID #60 tabs 02/11/23 02/19/23 Rx lisinopril 5 mg tablet 5 mg PO .5:00PM #30 tabs 02/11/23 02/19/23 Rx magnesium oxide 400 mg PO QAM #60 tabs 02/11/23 02/19/23 Rx tadalafil 5 mg tablet 5 mg PO DAILY@1700 #30 tabs 02/11/23 02/19/23 Rx metoprolol succinate 200 mg 200 mg PO HS 02/19/23 02/19/23 History tablet,extended release 24 hr Patient History Medical History RICKIE (acute kidney injury) Bladder cancer CKD (chronic kidney disease), stage III Diabetes Erectile dysfunction Hematuria History of placement of internal cardiac defibrillator Obesity Perinephric hematoma Ventricular arrhythmia Surgical History History of cardiac cath Hx of hernia repair Social History Smoking Status: Never smoker Tobacco Type: Cigarettes Second Hand Exposure: No; Do You Dip or Chew Tobacco: No; Tobacco Cessation Education Requested by Patient: No Hx Alcohol Use: Yes Alcohol type: beer Hx Substance Use: No Preferred Language: Slovak Communication Ability: Effective Tool Design Draftsperson Required: No Beliefs That Will Affect Care: None marital status: alone Current Living Situation: Rehab current occupational status: retired How many Children do You have: 0 Other Information That Helps Us Care for You: No Feels Safe at Home: Yes Safety Concerns: Feels Safe At This Time Diet: regular during the past year weight has: decreased > 10 lbs Physical Activity Frequency: Does not Exercise Do you think of yourself as: straight/heterosexual Gender Identity: Male Assistive Devices: Cane Physical Exam Physical Exam: Morbid obesity. Awake alert oriented x3 and was able to give detailed account of his medical problem. He seems very frustrated with his underlying health conditions Constitutional: Normal speech no respiratory distress Neck: Neck is supple cannot assess JVD secondary to obesity Respiratory: Bilateral clear to auscultation poor inspiratory effort limiting the quality of the exam Cardiovascular: Distant heart sounds regular well-controlled. Bilateral 3+ edema with chronic skin changes extending all the way up to the thigh Gastrointestinal (Abdomen): Soft nontender obese Skin: Significant chronic skin changes related with chronic edema in bilateral lower extremity Results & Data Vital Signs (Past 12 Hours) Vital Signs Temp Pulse Pulse Resp BP BP Pulse Ox 02/20/23 11:00 36.5 C 72 18 114/68 97 02/20/23 07:30 60 02/20/23 07:53 02/20/23 07:21 36.5 C 64 18 110/72 93 02/20/23 04:26 36.4 C L 66 22 85/52 L 91 02/20/23 04:01 36.4 C L 71 20 113/72 49 L O2 Del Method 02/20/23 11:00 Room Air 02/20/23 07:30 02/20/23 07:53 Room Air 02/20/23 07:21 Room Air 02/20/23 04:26 Room Air 02/20/23 04:01 Room Air Laboratory Results On recent blood work with kidney function reviewed. I would say his baseline is around 2. He came in with a creatinine of 3+ but is trending down.
[2023-02-20] MEDS ORDERED: FUROSEMIDE 40 MG/4 ML VIAL IV SCH (15:15)
--- NOTE | 2023-02-20 15:25 | Hospitalist Progress Note ---
Date of Service February 20, 2023 Assessment & Plan (1) THANH (acute kidney injury): Plan: 72-year-old male past med significant for hyperlipidemia, prediabetes, chronic systolic heart failure, history of right ventricle tachycardia, s/p AICD, history of [place], morbid obesity, history of bladder cancer s/p surgery, chronic kidney disease stage III,former smoker who was recently in the hospital for acute systolic CHF and is diuresed with IV Lasix and discharged with increased dose of Lasix of 60 mg twice daily and during hospitalization he was also treated for cellulitis of lower extremity with Rocephin and Dapto and discharged on 3 days of doxycycline to rehab was sent in because of worsening renal function. THANH on chronic kidney disease stage III Recently admitted from 02/07 to 02/11 for cellulitis, CHF. was discharged on lasix 60mg twice daily. Present with creatinine of 3.3 Baseline creatinine around 1.8-2 Creatinine downtrended to 2.96 with iv hydration Discussed with nephrology; started on iv diuretics(80mg twice daily). Chronic systolic CHF Echo done on 02/08/2023 shows EF of 40 to 45%, mild global hypokinesis of left ventricle, moderate concentric left ventricle hypertrophy, mild to moderate mitral regurgitation Chest x-ray personally reviewed; pulmonary edema present. Holding lisinopril. On metoprolol succinate. History of ventricular arrhythmias S/p AICD. On amiodarone. Hyperlipidemia On statin History of CAD on aspirin statin and beta-javi Morbid obesity Needs counseling Nocturnal pulse ox study while in the hospital Sleep study as outpatient Bladder cancer S/p surgery Follow-up with urology Abdominal hernia Seems stable currently DVT prophylaxis Heparin subcu Disposition telemetry floor Full code Time spent evaluating patient, direct bedside care, chart review, placing orders, interpretation of diagnostic studies, discussion with consultants, patient, and family members, as well as other required patient management activities is 60 minutes Please note the above document was generated using voice recognition software. It may contain grammatical, syntax or spelling errors. Any formal questions or concerns about the content, text or information contained within the body of this dictation should be directly addressed to the provider for clarification Admission and Anticipated Discharge Date Admission Date: February 19, 2023 Subjective Comfortably sitting on a chair; not in any distress. Denies SOB, chest pain, fever or chills. Review of Systems Review of Systems: All systems reviewed & are unremarkable except as noted in Subjective Physical Exam Physical Exam: General- Not in distress Head- atraumatic Eyes- PERRL, ENT- oropharynx clear Neck- supple, Lungs- clear to auscultation and percussion no added sounds heard Heart- regular rate and rhythm; no murmur, no gallop Abdomen- normal bowel sounds, soft, nontender, no distension Extremities- b/l lower extremity edema present; overlying erythema. Neuro- alert, oriented x 3; PERRL, no facial palsy; no dysarthria; obeys commands, insight good, moves extremities Skin- warm & dry Results & Data Results & Data Vital Signs (Past 12 Hours) Vital Signs Temp Pulse Pulse Resp BP BP Pulse Ox 02/20/23 11:00 36.5 C 72 18 114/68 97 02/20/23 07:30 60 02/20/23 07:53 02/20/23 07:21 36.5 C 64 18 110/72 93 02/20/23 04:26 36.4 C L 66 22 85/52 L 91 02/20/23 04:01 36.4 C L 71 20 113/72 49 L O2 Del Method 02/20/23 11:00 Room Air 02/20/23 07:30 02/20/23 07:53 Room Air 02/20/23 07:21 Room Air 02/20/23 04:26 Room Air 02/20/23 04:01 Room Air Laboratory Results Laboratory Results WBC 6.71 K/ul (4.8-10.8) 02/20/23 05:38 RBC 3.77 M/uL (4.70-6.10) L 02/20/23 05:38 Hgb 12.0 g/dl (14.0-18.0) L 02/20/23 05:38 Hct 37.1 % (42.0-52.0) L 02/20/23 05:38 MCV 98.4 fL (80.0-100.0) 02/20/23 05:38 MCH 31.8 pg (25.0-34.0) 02/20/23 05:38 MCHC 32.3 g/dL (32.0-36.0) 02/20/23 05:38 RDW Std Deviation 49.8 fL (36.4-46.3) H 02/20/23 05:38 RDW Coeff of Adriana 13.7 % (11.5-14.5) 02/20/23 05:38 Plt Count 199 K/uL (130-400) 02/20/23 05:38 MPV 12.2 fL (9.4-12.4) 02/20/23 05:38 Immature Gran % (Auto) 1.9 % 02/20/23 05:38 Neut % (Auto) 66.3 % 02/20/23 05:38 Lymph % (Auto) 14.2 % 02/20/23 05:38 [place] % (Auto) 14.8 % 02/20/23 05:38 Eos % (Auto) 2.2 % 02/20/23 05:38 Baso % (Auto) 0.6 % 02/20/23 05:38 Neut # (Auto) 4.45 K/uL (1.40-6.50) 02/20/23 05:38 Lymph # (Auto) 0.95 K/uL (1.2-3.4) L 02/20/23 05:38 [place] # (Auto) 0.99 K/uL (0.11-0.59) H 02/20/23 05:38 Eos # (Auto) 0.15 K/uL (0-0.50) 02/20/23 05:38 Baso # (Auto) 0.04 K/uL (0-0.2) 02/20/23 05:38 Immature Gran # (Auto) 0.13 K/uL (0.01-0.20) 02/20/23 05:38 PT 11.4 Seconds (9.0-12.0) 02/19/23 17:15 INR 1.0 (0.9-1.1) 02/19/23 17:15 APTT 26.9 Seconds (21.0-31.0) 02/19/23 17:15 PTT Ratio 1.0 02/19/23 17:15 Sodium 137 mmol/L (136-145) 02/20/23 05:38 Potassium 5.3 mmol/L (3.5-5.1) H 02/20/23 05:38 Chloride 100 mmol/L (98-107) 02/20/23 05:38 Carbon Dioxide 32 mmol/L (21-32) 02/20/23 05:38 Anion Gap 5 (3-11) 02/20/23 05:38 BUN 66 mg/dl (6-23) H 02/20/23 05:38 Creatinine 2.96 mg/dl (0.6-1.4) H D 02/20/23 05:38 Est Cr Clr Drug Dosing 35.7 ml/min 02/20/23 05:38 Est GFR ( Amer) 23.5 ml/min 02/20/23 05:38 Est GFR (Non-Af Amer) 20.3 ml/min 02/20/23 05:38 BUN/Creatinine Ratio 22.3 (10-20) H 02/20/23 05:38 Glucose 110 mg/dl (70-99(Fasting)) H 02/20/23 05:38 Calcium 8.4 mg/dl (8.6-10.3) L 02/20/23 05:38 Magnesium 2.6 mg/dl (1.7-2.4) H 02/20/23 05:38 Total Bilirubin 0.5 mg/dl (0.2-1.0) 02/19/23 17:15 AST 22 U/L (13-39) 02/19/23 17:15 ALT 22 U/L (7-52) 02/19/23 17:15 Alkaline Phosphatase 93 U/L (34-104) 02/19/23 17:15 Troponin I High Sens 9.3 pg/ml (0-20) 02/19/23 17:15 B-Natriuretic Peptide 178 pg/ml (0-100) H 02/19/23 17:15 Total Protein 7.2 gm/dl (6.0-8.3) 02/19/23 17:15 Albumin 3.8 gm/dl (3.4-5.0) 02/19/23 17:15 Globulin 3.4 gm/dl (2.5-4.0) 02/19/23 17:15 Albumin/Globulin Ratio 1.1 (0.9-2) 02/19/23 17:15 Urine Color Yellow 02/19/23 16:00 Urine Appearance Clear (Clear) 02/19/23 16:00 Urine pH 7.5 (4.5-7.5) 02/19/23 16:00 Ur Specific [place] 1.008 (1.000-1.030) 02/19/23 16:00 Urine Protein Negative (Negative) 02/19/23 16:00 Urine Glucose (UA) Negative (Negative) 02/19/23 16:00 Urine Ketones Negative (Negative) 02/19/23 16:00 Urine Blood Negative (Negative) 02/19/23 16:00 Urine Nitrite Negative (Negative) 02/19/23 16:00 Urine Bilirubin Negative (Negative) 02/19/23 16:00 Urine Urobilinogen Negative (Negative) 02/19/23 16:00 Ur Leukocyte Esterase Negative (Negative) 02/19/23 16:00 Impressions Chest X-Ray 02/19/23 15:56 XR chest 1V not portable CLINICAL HISTORY: Dyspnea COMPARISON STUDY: Chest radiograph February 07, 2023. FINDINGS: A left subclavian pacer/AICD is in place. There is no pneumothorax or pleural effusion. There is no consolidation to suggest pneumonia. Cardiomegaly is unchanged. Pulmonary vascular congestion is unchanged. IMPRESSION: Cardiomegaly and pulmonary vascular congestion, similar to prior exam. ACT 112: Negative or not required by law. Electronically signed by: Bruno Palma M.D. 02/19/2023 4:51 PM
[2023-02-20] MEDS: FUROSEMIDE 40 MG/4 ML VIAL IV SCH (16:15)
[2023-02-21] MEDS: FUROSEMIDE 40 MG/4 ML VIAL IV SCH ×2 (04:22→16:29)
[2023-02-21] MEDS: HEPARIN SOD 5,000 UNIT/0.5 ML VIAL SQ SCH ×2 (08:05→19:56)
[2023-02-21] MEDS: MAGNESIUM OXIDE 400 MG TAB PO SCH (08:07)
[2023-02-21] MEDS: TADALAFIL~ORDER AWAITING ACTION SCH ×3 (08:07→20:57)
[2023-02-21 08:27] LABS: Basophils # (auto) 0.05 K/uL (0-0.2); Basophils % (auto) 0.8 %; Eosinophils # (auto) 0.19 K/uL (0-0.50); Eosinophils % (auto) 3.2 %; Hematocrit (blood only) 39.9 % (42.0-52.0); Hemoglobin 12.9 g/dl (14.0-18.0); Immature Granulocytes # (auto) 0.12 K/uL (0.01-0.20); Lymphocytes # (auto) 0.95 K/uL (1.2-3.4); Mean Corpuscular Hemoglobin 31.2 pg (25.0-34.0); Mean Corpuscular Hgb Conc 32.3 g/dL (32.0-36.0); Mean Corpuscular Volume 96.4 fL (80.0-100.0); Mean Platelet Volume 11.5 fL (9.4-12.4); Monocytes # (auto) 0.89 K/uL (0.11-0.59); Neutrophils # (auto) 3.75 K/uL (1.40-6.50); Platelet Count 207 K/uL (130-400); RDW Coefficient of Variation 13.8 % (11.5-14.5); RDW Standard Deviation 49.1 fL (36.4-46.3); Red Blood Count 4.14 M/uL (4.70-6.10); White Blood Count 5.95 K/ul (4.8-10.8)
--- NOTE | 2023-02-21 08:40 | Cardiology Progress Note ---
Date of Service February 21, 2023 Assessment & Plan (1) Acute kidney injury superimposed on chronic kidney disease: (2) Acute on chronic systolic heart failure: (3) Morbid obesity: Plan: Continue intravenous furosemide, 80 mg twice daily. Nephrology input appreciate d. A.m. labs pending. Continue to hold MÓNICA inhibitor due to hyperkalemia. Follow fluid balance, daily weight, and GFR. Admission and Anticipated Discharge Date Admission Date: February 19, 2023 Subjective Patient seen examined the bedside. Denies chest pain or shortness of breath. Complains of persistent lower extremity edema. Telemetry reveals ventricular paced rhythm in the 60s to 70s. Fluid balance -1161 cc. A.m. labs pending. Review of Systems Review of Systems: All systems reviewed & are unremarkable except as noted in Subjective Physical Exam Constitutional: well nourished and + morbidly obese; no acute distress Respiratory: no respiratory distress, no labored breathing and no retractions Auscultation: + diminished lung sounds (Bases bilateral) Cardiovascular: Rate/Rhythm: regular rate and regular rhythm Heart Sounds: normal S1; + abnormal S2 and no murmur Vessels: no JVD Extremities: + edema (2+ bilateral pretibial edema, L>R, Stasis changes) Gastrointestinal (Abdomen): Inspection/Auscultation: normal bowel sounds; abdomen not distended Percussion/Palpation: abdomen soft; abdomen nontender, no guarding and abdomen not rigid Neurologic: CN's II-XI intact bilaterally and moves all extremities; no focal motor deficits Results & Data Vital Signs (Past 12 Hours) Vital Signs Temp Pulse Pulse Resp BP Pulse Ox O2 Del Method 02/21/23 03:00 36.3 C L 89 20 112/73 91 Room Air 02/20/23 23:46 74 02/20/23 23:00 36.5 C 73 22 115/78 96 Room Air Laboratory Results CBC 02/20/23 02/21/23 Range/Units 05:38 07:35 WBC 6.71 5.95 (4.8-10.8) K/ul RBC 3.77 L 4.14 L (4.70-6.10) M/uL Hgb 12.0 L 12.9 L (14.0-18.0) g/dl Hct 37.1 L 39.9 L (42.0-52.0) % Plt Count 199 207 (130-400) K/uL Neut # (Auto) 4.45 3.75 (1.40-6.50) K/uL Lymph # (Auto) 0.95 L 0.95 L (1.2-3.4) K/uL [place] # (Auto) 0.99 H 0.89 H (0.11-0.59) K/uL Eos # (Auto) 0.15 0.19 (0-0.50) K/uL Baso # (Auto) 0.04 0.05 (0-0.2) K/uL Intake and Output 02/20/23 02/21/23 02/21/23 22:59 06:59 14:59 Intake Total 240 / 1113.333 240 / 1113.333 Output Total 1200 / 2475 425 / 2475 Balance -960 / -1361.667 -185 / -1361.667 Intake: Oral 240 / 240 Tube Feeding 240 / 240 Output: Urine 1200 / 2475 425 / 2475 Other: Weight 162.4 kg 160 kg Weight Measurement Method Standing Scale
[2023-02-21 08:50] LABS: BUN Creatinine Ratio 20.8 (10-20); Calcium 8.9 mg/dl (8.6-10.3); Creatinine Clr Calc Pharmacy 36.2 ml/min; Est GFR (African American) 24.2 ml/min; Est GFR (Non-African American) 20.9 ml/min; Potassium 5.1 mmol/L (3.5-5.1)
[2023-02-21] MEDS: AMIODARONE 200 MG TAB PO SCH ×2 (10:29→19:55)
[2023-02-21] MEDS: ASPIRIN 81 MG ECTAB PO SCH (10:32)
--- NOTE | 2023-02-21 15:45 | Hospitalist Progress Note ---
Date of Service February 21, 2023 Assessment & Plan (1) THANH (acute kidney injury): Plan: Patient is a 72 yr male with H/O Hyperlipidemia, prediabetes, chronic systolic heart failure, history of right ventricle tachycardia, s/p AICD, history of [place], morbid obesity, history of bladder cancer s/p surgery, chronic kidney disease stage III,former smoker who was recently in the hospital for acute systolic CHF and is diuresed with IV Lasix and discharged with increased dose of Lasix of 60 mg twice daily and during hospitalization he was also treated for cellulitis of lower extremity with Rocephin and Dapto and discharged on 3 days of doxycycline to rehab was sent in because of worsening renal function. THANH on CKD III In setting of significant volume overload Recently admitted from 02/07 to 02/11 for cellulitis, CHF and was discharged on lasix 60mg twice daily. -CT Abd/Pel from 02/07/23:Scarring/atrophy of the LEFT kidney. No hydronephrosis Cr: 3.37>2.89 Continue to hold lisinopril Continue IV Lasix Appreciate nephrology input Avoid nephrotoxic agents as able Monitor renal function Acute on Chronic systolic CHF Echo done on 02/08/2023 shows EF of 40 to 45%, mild global hypokinesis of left ventricle, moderate concentric left ventricle hypertrophy, mild to moderate mitral regurgitation Chest x-ray showed pulmonary edema Continue IV Lasix Lisinopril held due to THANH Continue metoprolol History of ventricular arrhythmias S/p AICD Continue amiodarone, metoprolol Hyperlipidemia On statin History of CAD Continue aspirin, statin, metoprolol Morbid obesity BMI 49 Needs counseling Sleep study as outpatient Bladder cancer S/p surgery Follow-up with urology Abdominal hernia Stable DVT px Heparin SQ Code Status Full code Admission and Anticipated Discharge Date Admission Date: February 19, 2023 Subjective Patient is seen and examined at bedside States having significant leg edema Offers no other complaints Denies any chest pain, dyspnea, dizziness, nausea, vomiting, abdominal pain Review of Systems Review of Systems: All systems reviewed & are unremarkable except as noted in Subjective Physical Exam Physical Exam: Physical Exam: Vitals signs as noted above General Appearance:Morbidly Obese, no apparent distress Head: normocephalic, Atraumatic Eyes: normal inspection, EOMI Neck: supple, Trachea midline Respiratory/Chest: Decreased breath sounds, CTA, No accessory muscle use Cardiovascular: S1, S2, No murmur,+Pacer Abdomen/GI:Soft, Non tender, Bowel sounds present Extremities/Musculoskeletal:normal inspection, 3+ LE edema, Localized erythema (Chronic per Pt) Neurologic/Psych:AAOX3, grossly no focal neurological deficits Skin: normal color, warm Results & Data Results & Data Vital Signs (Past 12 Hours) Vital Signs Temp Pulse Pulse Resp BP BP Pulse Ox 02/21/23 12:20 36.6 C 72 16 112/73 95 02/21/23 08:00 74 02/21/23 08:00 02/21/23 08:00 36.9 C 60 18 81/49 L 96 O2 Del Method 02/21/23 12:20 Room Air 02/21/23 08:00 02/21/23 08:00 Room Air 02/21/23 08:00 Room Air Laboratory Results Short CBC 02/21/23 Range/Units 07:35 WBC 5.95 (4.8-10.8) K/ul Hgb 12.9 L (14.0-18.0) g/dl Hct 39.9 L (42.0-52.0) % Plt Count 207 (130-400) K/uL BMP 02/21/23 07:35 Sodium 138 Potassium 5.1 Chloride 98 Carbon Dioxide 33 H BUN 60 H Creatinine 2.89 H Glucose 106 H Calcium 8.9
[2023-02-21] MEDS: METOPROLOL SUCC 50MG EXT REL TAB PO SCH (19:55)
[2023-02-21] MEDS: ATORVASTATIN 40 MG TAB PO SCH (20:53)
[2023-02-22] MEDS: FUROSEMIDE 40 MG/4 ML VIAL IV SCH ×2 (04:58→15:27)
[2023-02-22 06:53] LABS: Calcium 8.9 mg/dl (8.6-10.3); Creatinine Clr Calc Pharmacy 38.3 ml/min; Est GFR (African American) 25.9 ml/min; Est GFR (Non-African American) 22.4 ml/min; Potassium 4.7 mmol/L (3.5-5.1)
[2023-02-22] MEDS: TADALAFIL~ORDER AWAITING ACTION SCH ×3 (08:29→23:07)
[2023-02-22] MEDS: AMIODARONE 200 MG TAB PO SCH ×2 (08:30→20:22)
[2023-02-22] MEDS: ASPIRIN 81 MG ECTAB PO SCH (08:32)
[2023-02-22] MEDS: MAGNESIUM OXIDE 400 MG TAB PO SCH (08:33)
[2023-02-22] MEDS: HEPARIN SOD 5,000 UNIT/0.5 ML VIAL SQ SCH ×2 (08:33→20:23)
--- NOTE | 2023-02-22 09:51 | Cardiology Progress Note ---
Date of Service February 22, 2023 Assessment & Plan (1) Acute on chronic systolic heart failure: (2) Acute kidney injury superimposed on chronic kidney disease: (3) Morbid obesity: Plan: Continue intravenous furosemide, 80 mg twice daily. Nephrology input appreciate d. Continue to hold MÓNICA inhibitor. Follow fluid balance, daily weight, and GFR. Continue metoprolol, aspirin, atorvastatin, and amiodarone as ordered. Admission and Anticipated Discharge Date Admission Date: February 19, 2023 Subjective Patient seen examined the bedside. Fluid balance -2.4 L. Creatinine trending downward slightly. Telemetry reveals ventricular paced rhythm 60s-70s. Patient denies chest pain or shortness of breath. No significant change in edema subje ctively. Denies orthopnea or PND. Review of Systems Review of Systems: All systems reviewed & are unremarkable except as noted in Subjective Physical Exam Constitutional: well nourished and + morbidly obese; no acute distress Respiratory: no respiratory distress, no labored breathing and no retractions Auscultation: + diminished lung sounds (Bases bilateral) Cardiovascular: Rate/Rhythm: regular rate and regular rhythm Heart Sounds: normal S1; + abnormal S2 and no murmur Vessels: no JVD Extremities: + edema (2+ bilateral pretibial edema, L>R, Stasis changes) Gastrointestinal (Abdomen): Inspection/Auscultation: normal bowel sounds; abdomen not distended Percussion/Palpation: abdomen soft; abdomen nontender, no guarding and abdomen not rigid Neurologic: CN's II-XI intact bilaterally and moves all extremities; no focal motor deficits Results & Data Vital Signs (Past 12 Hours) Vital Signs Temp Pulse Pulse Resp BP Pulse Ox O2 Del Method 02/22/23 08:08 36.8 C 60 16 101/50 L 95 Room Air 02/22/23 07:14 62 02/22/23 03:13 36.5 C 66 20 109/65 92 Room Air 02/21/23 23:25 65 02/21/23 22:33 36.6 C 65 18 120/73 95 Room Air Diagnostic Findings Comprehensive Metabolic Panel 02/22/23 Range/Units 05:47 Sodium 137 (136-145) mmol/L Potassium 4.7 (3.5-5.1) mmol/L Chloride 97 L (98-107) mmol/L Carbon Dioxide 35 H (21-32) mmol/L BUN 60 H (6-23) mg/dl Creatinine 2.73 H (0.6-1.4) mg/dl Glucose 102 H (70-99(Fasting)) mg/dl Calcium 8.9 (8.6-10.3) mg/dl Intake and Output 02/21/23 02/22/23 02/22/23 22:59 06:59 14:59 Intake Total 480 / 1080 Output Total 1525 / 3501 476 / 3501 Balance -1045 / -2421 -476 / -2421 Intake: Oral 480 / 1080 Output: Urine 1525 / 3500 475 / 3500 # Bowel Movements Other: Weight 159.8 kg Weight Measurement Method Standing Scale
--- NOTE | 2023-02-22 15:51 | Hospitalist Progress Note ---
Date of Service February 22, 2023 Assessment & Plan (1) THANH (acute kidney injury): Plan: Patient is a 72 yr male with H/O Hyperlipidemia, prediabetes, chronic systolic heart failure, history of right ventricle tachycardia, s/p AICD, history of [place], morbid obesity, history of bladder cancer s/p surgery, chronic kidney disease stage III,former smoker who was recently in the hospital for acute systolic CHF and is diuresed with IV Lasix and discharged with increased dose of Lasix of 60 mg twice daily and during hospitalization he was also treated for cellulitis of lower extremity with Rocephin and Dapto and discharged on 3 days of doxycycline to rehab was sent in because of worsening renal function. THANH on CKD III In setting of significant volume overload Recently admitted from 02/07 to 02/11 for cellulitis, CHF and was discharged on lasix 60mg twice daily. -CT Abd/Pel from 02/07/23:Scarring/atrophy of the LEFT kidney. No hydronephrosis Cr: 3.37>2.89>2.73 Continue to hold lisinopril Continue IV Lasix Appreciate nephrology input Avoid nephrotoxic agents as able Monitor renal function Renal function slowly improving Acute on Chronic systolic CHF Echo done on 02/08/2023 shows EF of 40 to 45%, mild global hypokinesis of left ventricle, moderate concentric left ventricle hypertrophy, mild to moderate mitral regurgitation Chest x-ray showed pulmonary edema Continue IV Lasix Lisinopril held due to THANH Continue metoprolol Continue current management History of ventricular arrhythmias S/p AICD Continue amiodarone, metoprolol Hyperlipidemia On statin History of CAD Continue aspirin, statin, metoprolol Morbid obesity BMI 49 Needs counseling Sleep study as outpatient Bladder cancer S/p surgery Follow-up with urology Abdominal hernia Stable DVT px Heparin SQ Code Status Full code Admission and Anticipated Discharge Date Admission Date: February 19, 2023 Subjective Patient is seen and examined at bedside Cr trending down Subjectively feels no significant change when compared to study Still has significant leg edema Denies any chest pain, dyspnea, dizziness, nausea, vomiting, abdominal pain Review of Systems Review of Systems: All systems reviewed & are unremarkable except as noted in Subjective Physical Exam Physical Exam: Physical Exam: Vitals signs as noted above General Appearance:Morbidly Obese, no apparent distress Head: normocephalic, Atraumatic Eyes: normal inspection, EOMI Neck: supple, Trachea midline Respiratory/Chest: Decreased breath sounds, CTA, No accessory muscle use Cardiovascular: S1, S2, No murmur,+Pacer Abdomen/GI:Soft, Non tender, Bowel sounds present Extremities/Musculoskeletal:normal inspection, 3+ LE edema, Localized erythema (Chronic per Pt) Neurologic/Psych:AAOX3, grossly no focal neurological deficits Skin: normal color, warm Results & Data Results & Data Vital Signs (Past 12 Hours) Vital Signs Temp Pulse Pulse Resp BP BP Pulse Ox 02/22/23 15:06 36.4 C L 66 20 106/63 95 02/22/23 11:15 36.9 C 61 16 111/72 96 02/22/23 08:08 36.8 C 60 16 101/50 L 95 02/22/23 07:14 62 O2 Del Method 02/22/23 15:06 Room Air 02/22/23 11:15 Room Air 02/22/23 08:08 Room Air 02/22/23 07:14 Laboratory Results BMP 02/22/23 05:47 Sodium 137 Potassium 4.7 Chloride 97 L Carbon Dioxide 35 H BUN 60 H Creatinine 2.73 H Glucose 102 H Calcium 8.9
[2023-02-22] MEDS: ATORVASTATIN 40 MG TAB PO SCH (20:22)
[2023-02-22] MEDS: METOPROLOL SUCC 50MG EXT REL TAB PO SCH (20:23)
[2023-02-22] MEDS ORDERED: Nursing to Pharmacy Communication SCH (20:45)
[2023-02-23] MEDS: FUROSEMIDE 40 MG/4 ML VIAL IV SCH ×2 (04:51→14:44)
[2023-02-23 07:39] LABS: Hematocrit (blood only) 39.8 % (42.0-52.0); Hemoglobin 13.1 g/dl (14.0-18.0); Mean Corpuscular Hemoglobin 31.2 pg (25.0-34.0); Mean Corpuscular Hgb Conc 32.9 g/dL (32.0-36.0); Mean Corpuscular Volume 94.8 fL (80.0-100.0); Mean Platelet Volume 11.3 fL (9.4-12.4); Platelet Count 203 K/uL (130-400); RDW Coefficient of Variation 13.8 % (11.5-14.5); RDW Standard Deviation 48.3 fL (36.4-46.3); White Blood Count 5.76 K/ul (4.8-10.8)
[2023-02-23 07:52] LABS: Calcium 9.2 mg/dl (8.6-10.3); Creatinine Clr Calc Pharmacy 40.2 ml/min; Est GFR (African American) 27.9 ml/min; Est GFR (Non-African American) 24.1 ml/min; Magnesium 2.4 mg/dl (1.7-2.4); Potassium 4.6 mmol/L (3.5-5.1)
[2023-02-23] MEDS: HEPARIN SOD 5,000 UNIT/0.5 ML VIAL SQ SCH ×2 (08:17→20:26)
[2023-02-23] MEDS: MAGNESIUM OXIDE 400 MG TAB PO SCH (08:17)
[2023-02-23] MEDS: AMIODARONE 200 MG TAB PO SCH ×2 (08:17→15:37)
[2023-02-23] MEDS: ASPIRIN 81 MG ECTAB PO SCH (08:18)
[2023-02-23] MEDS: TADALAFIL~ORDER AWAITING ACTION SCH (08:18)
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
--- NOTE | 2023-02-23 13:55 | Nephrology Progress Note ---
Date of Service February 23, 2023 Assessment & Plan Admission and Anticipated Discharge Date Admission Date: February 19, 2023 Subjective A/p:Assessment & Plan (1) THANH (acute kidney injury): Acute kidney injury but associated with significant fluid overload and massive edema. Every rise in creatinine after Lasix increase is not necessarily related with Lasix. He has many many reasons to have acute rise in creatinine including underlying acute tubular ischemia. Also worth noting that worsening CHF in itself can cause worsening renal function. Also with his difficult to assess hydration status given morbid obesity as well as underlying congestive heart failure as well as chronic venous insufficiency it is hard to pinpoint what his baseline creatinine is. Creat has steadily trended down despite Diuretics and good diuresis. this does prove that rise in creat pre admission was not because of lasix dosing. Continue Lasix 80 mg IV twice daily for now. for outpt will suggest demadex 60 bid. S--made 3500 ml urine. Labs stable. Vitals stable. Physical Exam Physical Exam: Morbid obesity. Awake alert oriented x3 and was able to give detailed account of his medical problem. He seems very frustrated with his underlying health conditions Constitutional: Normal speech no respiratory distress Neck: Neck is supple cannot assess JVD secondary to obesity Respiratory: Bilateral clear to auscultation poor inspiratory effort limiting the quality of the exam Cardiovascular: Distant heart sounds regular well-controlled. Bilateral 3+ edema with chronic skin changes extending all the way up to the thigh Gastrointestinal (Abdomen): Soft nontender obese Skin: Significant chronic skin changes related with chronic edema in bilateral lower extremity Results & Data Vital Signs (Past 12 Hours) Vital Signs Temp Pulse Pulse Resp BP Pulse Ox O2 Del Method 02/23/23 11:42 36.6 C 87 18 128/69 97 Room Air 02/23/23 08:00 36.4 C L 63 18 106/82 98 Room Air 02/23/23 06:57 60 02/23/23 03:00 36.5 C 59 L 17 99/54 L 92 Room Air
--- NOTE | 2023-02-23 17:03 | Hospitalist Progress Note ---
Date of Service February 23, 2023 Assessment & Plan (1) THANH (acute kidney injury): Plan: Patient is a 72 yr male with H/O Hyperlipidemia, prediabetes, chronic systolic heart failure, history of right ventricle tachycardia, s/p AICD, history of [place], morbid obesity, history of bladder cancer s/p surgery, chronic kidney disease stage III,former smoker who was recently in the hospital for acute systolic CHF and is diuresed with IV Lasix and discharged with increased dose of Lasix of 60 mg twice daily and during hospitalization he was also treated for cellulitis of lower extremity with Rocephin and Dapto and discharged on 3 days of doxycycline to rehab was sent in because of worsening renal function. THANH on CKD III In setting of significant volume overload Recently admitted from 02/07 to 02/11 for cellulitis, CHF and was discharged on lasix 60mg twice daily. -CT Abd/Pel from 02/07/23:Scarring/atrophy of the LEFT kidney. No hydronephrosis Cr: 3.3>2.8>2.7>2.5 Continue to hold lisinopril Continue IV Lasix Appreciate nephrology input Avoid nephrotoxic agents as able Monitor renal function Continue diuresis Acute on Chronic systolic CHF Echo done on 02/08/2023 shows EF of 40 to 45%, mild global hypokinesis of left ventricle, moderate concentric left ventricle hypertrophy, mild to moderate mitral regurgitation Chest x-ray showed pulmonary edema Continue IV Lasix Lisinopril held due to THANH Continue metoprolol Cardiology following History of ventricular arrhythmias S/p AICD Continue amiodarone, metoprolol Hyperlipidemia On statin History of CAD Continue aspirin, statin, metoprolol Morbid obesity BMI 49 Needs counseling Sleep study as outpatient Bladder cancer S/p surgery Follow-up with urology Abdominal hernia Stable DVT px Heparin SQ Code Status Full code Disposition PT OT prior to discharge Admission and Anticipated Discharge Date Admission Date: February 19, 2023 Subjective Patient is seen and examined at bedside Leg edema slowly improving Renal function stable Patient offers no new complaints Sitting in chair during my encounter Denies any chest pain, dyspnea, dizziness, nausea, vomiting, abdominal pain Review of Systems Review of Systems: All systems reviewed & are unremarkable except as noted in Subjective Physical Exam Physical Exam: Physical Exam: Vitals signs as noted above General Appearance:Morbidly Obese, no apparent distress Head: normocephalic, Atraumatic Eyes: normal inspection, EOMI Neck: supple, Trachea midline Respiratory/Chest: Decreased breath sounds, CTA, No accessory muscle use Cardiovascular: S1, S2, No murmur,+Pacer Abdomen/GI:Soft, Non tender, Bowel sounds present Extremities/Musculoskeletal:normal inspection, 3+ LE edema, Localized erythema (Chronic per Pt) Neurologic/Psych:AAOX3, grossly no focal neurological deficits Skin: normal color, warm Results & Data Results & Data Vital Signs (Past 12 Hours) Vital Signs Temp Pulse Pulse Resp BP BP Pulse Ox 02/23/23 15:53 76 02/23/23 15:53 02/23/23 15:40 36.9 C 66 20 101/63 92 02/23/23 14:16 96 02/23/23 11:42 36.6 C 87 18 128/69 97 02/23/23 08:00 36.4 C L 63 18 106/82 98 02/23/23 06:57 60 O2 Del Method 02/23/23 15:53 02/23/23 15:53 Room Air 02/23/23 15:40 Room Air 02/23/23 14:16 02/23/23 11:42 Room Air 02/23/23 08:00 Room Air 02/23/23 06:57 Laboratory Results Short CBC 02/23/23 Range/Units 07:02 WBC 5.76 (4.8-10.8) K/ul Hgb 13.1 L (14.0-18.0) g/dl Hct 39.8 L (42.0-52.0) % Plt Count 203 (130-400) K/uL BMP 02/23/23 07:02 Sodium 138 Potassium 4.6 Chloride 98 Carbon Dioxide 35 H BUN 54 H Creatinine 2.57 H Glucose 107 H Calcium 9.2
[2023-02-23] MEDS: METOPROLOL SUCC 50MG EXT REL TAB PO SCH (20:25)
[2023-02-23] MEDS: ATORVASTATIN 40 MG TAB PO SCH (20:26)
[2023-02-24] MEDS: FUROSEMIDE 40 MG/4 ML VIAL IV SCH (03:33)
[2023-02-24 07:34] LABS: BUN Creatinine Ratio 19.6 (10-20); Calcium 9.1 mg/dl (8.6-10.3); Creatinine Clr Calc Pharmacy 36.8 ml/min; Est GFR (African American) 25.2 ml/min; Est GFR (Non-African American) 21.7 ml/min; Potassium 4.2 mmol/L (3.5-5.1)
[2023-02-24] MEDS: ASPIRIN 81 MG ECTAB PO SCH (08:51)
[2023-02-24] MEDS: AMIODARONE 200 MG TAB PO SCH ×2 (08:52→16:47)
[2023-02-24] MEDS: HEPARIN SOD 5,000 UNIT/0.5 ML VIAL SQ SCH ×2 (08:54→21:08)
[2023-02-24] MEDS: MAGNESIUM OXIDE 400 MG TAB PO SCH (08:55)
--- NOTE | 2023-02-24 10:26 | Cardiology Progress Note ---
Date of Service February 24, 2023 Assessment & Plan (1) Acute on chronic systolic heart failure: (2) Acute kidney injury superimposed on chronic kidney disease: (3) Morbid obesity: Plan: Continue intravenous furosemide through today then switch to oral torsemide in AM. Continue to hold MÓNICA inhibitor. Follow fluid balance, daily weight, and GFR. Continue metoprolol, aspirin, atorvastatin, and amiodarone as ordered. Admission and Anticipated Discharge Date Admission Date: February 19, 2023 Supervising Physician Co-Signing Physician Notes Supervising Physician Attestation: I have personally performed a history and physical examination on the patient. I agree with the physician cleaner assistant's findings and plan as documented with the following additions. Subjective: Patient feels subjectively improved. Erythema and lower extremity edema improved compared to earlier this hospital stay Exam: Cardiovascular: Regular rhythm, no murmurs, 1+ edema, trend toward improvement Data: Creatinine of 3.37 on presentation had improved to 2.57 yesterday and is 2.8 today Assessment and Plan: As noted above DVT prophylaxis: Subcutaneous heparin Hank Segura, Subjective Patient seen examined. Chart, medications, and telemetry reviewed. Notes getting green socks, ambulating in the hallway without much difficulty. No chest pain. No palpitations. No shortness of breath. Legs feel the same. Chronic stable left greater than right lower extremity erythema. I/O's -7,632 mL's overall. Weight 171.3 -> 155.5 Creatinine bumped up slightly today Telemetry reveals ventricular paced rhythm 70's-80's Review of Systems Review of Systems: Complete Review of Systems is as stated above, negative, or noncontributory. Physical Exam Physical Exam: Examined in the bedside chair General: A&Ox3. NAD. HENT: Normocephalic. Atraumatic. Eyes: PER. Conjunctiva pink, sclera clear. Neck: No carotid bruits. No overt JVD. Heart: RRR, 70 bpm. No murmur. Lungs: Clear to auscultation. Abdomen: Obese. +BS. Soft. Nontender. No masses or organomegaly. Extremities: 1+ chronic indurated edema with left greater than right lower extremity erythema. No clubbing. No cyanosis. Limited neurological examination is without focal deficits. Pulses: radial=2/4, posterior tibial=0/4. Constitutional: WD/WN, vitals as above + morbidly obese Respiratory: no labored breathing Auscultation: + diminished lung sounds (Mildly reduced breath sounds bilaterally at the bases) Cardiovascular: Rate/Rhythm: regular rate Vessels: no JVD Extremities: + edema (2-3+ bilateral lower extremity edema, erythema) Gastrointestinal (Abdomen): normal bowel sounds, soft, nontender, no hepatosplenomegaly Neurologic: PERRL, EOMI, accommodation nl, no face palsy, no dysarthria Results & Data Vital Signs (Past 12 Hours) Vital Signs Temp Pulse Resp BP BP Pulse Ox O2 Del Method 02/24/23 07:34 36.6 C 80 20 108/61 90 Room Air 02/24/23 03:32 36.8 C 60 18 133/76 92 Room Air 02/23/23 22:50 36.5 C 65 18 119/72 95 Room Air Laboratory Results Comprehensive Metabolic Panel 02/24/23 Range/Units 06:49 Sodium 137 (136-145) mmol/L Potassium 4.2 (3.5-5.1) mmol/L Chloride 95 L (98-107) mmol/L Carbon Dioxide 36 H (21-32) mmol/L BUN 55 H (6-23) mg/dl Creatinine 2.80 H (0.6-1.4) mg/dl Glucose 108 H (70-99(Fasting)) mg/dl Calcium 9.1 (8.6-10.3) mg/dl Intake and Output 02/23/23 02/24/23 02/24/23 22:59 06:59 14:59 Intake Total 920 / 1320 400 / 1320 Output Total 1540 / 3115 750 / 3115 Balance -620 / -1795 -350 / -1795 Intake: Oral 920 / 1320 400 / 1320 Output: Urine 1540 / 3115 750 / 3115 Other: Weight 155.5 kg Weight Measurement Method Standing Scale
--- NOTE | 2023-02-24 11:43 | Nephrology Progress Note ---
Date of Service February 24, 2023 Assessment & Plan Admission and Anticipated Discharge Date Admission Date: February 19, 2023 Subjective Subjective A/p:Assessment & Plan (1) THANH (acute kidney injury): Acute kidney injury but associated with significant fluid overload and massive edema. Every rise in creatinine after Lasix increase is not necessarily related with Lasix. He has many many reasons to have acute rise in creatinine including underlying acute tubular ischemia. Also worth noting that worsening CHF in itself can cause worsening renal function. Also with his difficult to assess hydration status given morbid obesity as well as underlying congestive heart failure as well as chronic venous insufficiency it is hard to pinpoint what his baseline creatinine is. Creat has steadily trended down despite Diuretics and good diuresis but slight rise from yesterday to today. this does prove that rise in creat pre admission was not because of lasix dosing. D/c Iv lasix. Switch to lasix 80 bid. Explained to him that he will have abnormal baseline creat going forward. Schedule with Nephrology preferably Dr Sorenson in [facility] where patient lives within 1-2 week. Suggest not to lower lasix for some rise in creat. S--made 3100 ml urine. Labs fairly stable. Vitals stable. Wants to go home and says he feels totally fine Physical Exam Physical Exam: Morbid obesity. Awake alert oriented x3 and was able to give detailed account of his medical problem. He seems very frustrated with his underlying health conditions Constitutional: Normal speech no respiratory distress Neck: Neck is supple cannot assess JVD secondary to obesity Respiratory: Bilateral clear to auscultation poor inspiratory effort limiting the quality of the exam Cardiovascular: Distant heart sounds regular well-controlled. Bilateral 3+ edema with chronic skin changes extending all the way up to the thigh Gastrointestinal (Abdomen): Soft nontender obese Skin: Significant chronic skin changes related with chronic edema in bilateral lower extremity Results & Data Vital Signs (Past 12 Hours) Vital Signs Temp Pulse Resp BP Pulse Ox O2 Del Method 02/24/23 11:35 36.6 C 60 20 103/64 92 Room Air 02/24/23 07:34 36.6 C 80 20 108/61 90 Room Air 02/24/23 03:32 36.8 C 60 18 133/76 92 Room Air
--- NOTE | 2023-02-24 16:19 | Hospitalist Progress Note ---
Date of Service February 24, 2023 Assessment & Plan (1) THANH (acute kidney injury): Plan: Patient is a 72 yr male with H/O Hyperlipidemia, prediabetes, chronic systolic heart failure, history of right ventricle tachycardia, s/p AICD, history of [place], morbid obesity, history of bladder cancer s/p surgery, chronic kidney disease stage III,former smoker who was recently in the hospital for acute systolic CHF and is diuresed with IV Lasix and discharged with increased dose of Lasix of 60 mg twice daily and during hospitalization he was also treated for cellulitis of lower extremity with Rocephin and Dapto and discharged on 3 days of doxycycline to rehab was sent in because of worsening renal function. THANH on CKD III In setting of significant volume overload Recently admitted from 02/07 to 02/11 for cellulitis, CHF and was discharged on lasix 60mg twice daily. -CT Abd/Pel from 02/07/23:Scarring/atrophy of the LEFT kidney. No hydronephrosis Cr: 3.3>2.8>2.7>2.5>2.8 Continue to hold lisinopril Continue IV Lasix>>> transition to p.o. Lasix 80 mg twice daily Appreciate nephrology input Avoid nephrotoxic agents as able Monitor renal function Likely discharge in 1 to 2 days if renal function remains stable Needs follow-up with cardiology/nephrology upon discharge Acute on Chronic systolic CHF Echo done on 02/08/2023 shows EF of 40 to 45%, mild global hypokinesis of left ventricle, moderate concentric left ventricle hypertrophy, mild to moderate mitral regurgitation Chest x-ray showed pulmonary edema Lisinopril held due to THANH Continue metoprolol Cardiology following Continue diuretics as above History of ventricular arrhythmias S/p AICD Continue amiodarone, metoprolol Hyperlipidemia On statin History of CAD Continue aspirin, statin, metoprolol Morbid obesity BMI 49 Needs counseling Sleep study as outpatient Bladder cancer S/p surgery Follow-up with urology Abdominal hernia Stable DVT px Heparin SQ Code Status Full code Disposition Home as able Admission and Anticipated Discharge Date Admission Date: February 19, 2023 Subjective Patient is seen and examined at bedside Subjectively feels no significant change from yesterday Leg edema continues to improve Creatinine levels rising today Denies any chest pain, dyspnea, dizziness, nausea, vomiting, abdominal pain Review of Systems Review of Systems: All systems reviewed & are unremarkable except as noted in Subjective Physical Exam Physical Exam: Physical Exam: Vitals signs as noted above General Appearance:Morbidly Obese, no apparent distress Head: normocephalic, Atraumatic Eyes: normal inspection, EOMI Neck: supple, Trachea midline Respiratory/Chest: Decreased breath sounds, CTA, No accessory muscle use Cardiovascular: S1, S2, No murmur,+Pacer Abdomen/GI:Soft, Non tender, Bowel sounds present Extremities/Musculoskeletal:normal inspection, 3+ LE edema, Localized erythema (Chronic per Pt) Neurologic/Psych:AAOX3, grossly no focal neurological deficits Skin: normal color, warm Results & Data Results & Data Vital Signs (Past 12 Hours) Vital Signs Temp Pulse Resp BP Pulse Ox Pulse Ox Pulse Ox 02/24/23 15:09 36.7 C 62 16 107/69 94 02/24/23 13:05 96 91 02/24/23 11:35 36.6 C 60 20 103/64 92 02/24/23 07:34 36.6 C 80 20 108/61 90 O2 Del Method 02/24/23 15:09 Room Air 02/24/23 13:05 02/24/23 11:35 Room Air 02/24/23 07:34 Room Air Laboratory Results BMP 02/24/23 06:49 Sodium 137 Potassium 4.2 Chloride 95 L Carbon Dioxide 36 H BUN 55 H Creatinine 2.80 H Glucose 108 H Calcium 9.1
[2023-02-24] MEDS: FUROSEMIDE 80 MG TAB PO SCH (16:49)
[2023-02-24] MEDS: ATORVASTATIN 40 MG TAB PO SCH (21:08)
[2023-02-24] MEDS: METOPROLOL SUCC 50MG EXT REL TAB PO SCH (21:09)
[2023-02-25 06:41] LABS: Hematocrit (blood only) 37.9 % (42.0-52.0); Hemoglobin 12.4 g/dl (14.0-18.0); Mean Corpuscular Hemoglobin 31.2 pg (25.0-34.0); Mean Corpuscular Hgb Conc 32.7 g/dL (32.0-36.0); Mean Corpuscular Volume 95.2 fL (80.0-100.0); Mean Platelet Volume 11.4 fL (9.4-12.4); Platelet Count 197 K/uL (130-400); RDW Coefficient of Variation 13.7 % (11.5-14.5); RDW Standard Deviation 48.5 fL (36.4-46.3); Red Blood Count 3.98 M/uL (4.70-6.10); White Blood Count 5.69 K/ul (4.8-10.8)
[2023-02-25 06:57] LABS: BUN Creatinine Ratio 19.3 (10-20); Calcium 8.9 mg/dl (8.6-10.3); Creatinine Clr Calc Pharmacy 37.2 ml/min; Est GFR (African American) 25.8 ml/min; Est GFR (Non-African American) 22.3 ml/min; Potassium 4.3 mmol/L (3.5-5.1)
--- NOTE | 2023-02-25 08:03 | Nephrology Progress Note ---
Date of Service February 25, 2023 Assessment & Plan Admission and Anticipated Discharge Date Admission Date: February 19, 2023 Subjective A/p:Assessment & Plan (1) THANH (acute kidney injury): Acute kidney injury but associated with significant fluid overload and massive edema. Every rise in creatinine after Lasix increase is not necessarily related with Lasix. He has many many reasons to have acute rise in creatinine including underlying acute tubular ischemia. Also worth noting that worsening CHF in itself can cause worsening renal function. Also with his difficult to assess hydration status given morbid obesity as well as underlying congestive heart failure as well as chronic venous insufficiency it is hard to pinpoint what his baseline creatinine is. rise in creat pre admission was not because of lasix dosing. Continue lasix 80 bid. Explained to him that he will have abnormal baseline creat going forward. have to accept a higher baseline creat to manage his volume Status better. Schedule with Nephrology preferably Dr Sorenson in [facility] where patient lives within 1-2 week. Suggest not to lower lasix for some rise in creat as outpt S--made 2500 ml urine. Labs fairly stable. Vitals stable. Wants to go home and says he feels totally fine. Physical Exam Physical Exam: Morbid obesity. Awake alert oriented x3 and was able to give detailed account of his medical problem. He seems very frustrated with his underlying health conditions Constitutional: Normal speech no respiratory distress Neck: Neck is supple cannot assess JVD secondary to obesity Respiratory: Bilateral clear to auscultation poor inspiratory effort limiting the quality of the exam Cardiovascular: Distant heart sounds regular well-controlled. Bilateral 3+ edema with chronic skin changes extending all the way up to the thigh Gastrointestinal (Abdomen): Soft nontender obese Skin: Significant chronic skin changes related with chronic edema in bilateral lower extremity Results & Data Vital Signs (Past 12 Hours) Vital Signs Temp Pulse Pulse Pulse Resp BP BP 02/25/23 07:26 36.6 C 60 20 108/69 02/25/23 03:10 36.4 C L 60 15 100/65 02/24/23 23:06 60 02/24/23 23:05 36.9 C 60 18 114/76 Pulse Ox O2 Del Method 02/25/23 07:26 90 Room Air 02/25/23 03:10 93 Room Air 02/24/23 23:06 02/24/23 23:05 91 Room Air
[2023-02-25] MEDS: ASPIRIN 81 MG ECTAB PO SCH (08:49)
[2023-02-25] MEDS: AMIODARONE 200 MG TAB PO SCH (08:50)
[2023-02-25] MEDS: FUROSEMIDE 80 MG TAB PO SCH (08:51)
[2023-02-25] MEDS: HEPARIN SOD 5,000 UNIT/0.5 ML VIAL SQ SCH (08:51)
[2023-02-25] MEDS: MAGNESIUM OXIDE 400 MG TAB PO SCH (08:52)
--- NOTE | 2023-02-25 09:58 | Cardiology Progress Note ---
Date of Service February 25, 2023 Assessment & Plan (1) Acute on chronic systolic heart failure: (2) Acute kidney injury superimposed on chronic kidney disease: (3) Morbid obesity: Plan: Continue metoprolol, aspirin, atorvastatin, amiodarone, and furosemide as pres cribed. ACEI on hold. Outpatient cardiology follow-up with primary certified registered nurse anesthetist, Dr. Cantu Admission and Anticipated Discharge Date Admission Date: February 19, 2023 Supervising Physician Co-Signing Physician Notes Supervising Physician Attestation: I have personally performed a history and physical examination on the patient. I agree with the physician hospital administrative assistant's findings and plan as documented with the following additions. Subjective: Patient feels subjectively improved. Erythema and lower extremity edema improved compared to earlier this hospital stay Exam: Cardiovascular: Regular rhythm, no murmurs, chronic venous stasis changes. Data: Creatinine of 3.37 on presentation had improved to 2.57 yesterday and is 2.74 today, 02/25/23 Assessment and Plan: Patient tells me his weight of 337 pounds is the lowest it has been since 1 year ago. Agree with plan for oral furosemide 80 mg p.o. twice daily. Stable from a cardiac perspective for discharge. Hank Segura, DO Subjective Patient seen examined. Chart, medications, and telemetry reviewed. Switched to oral furosemide at 80 mg twice a day by Nephrology on 02/24/2023. Feeling fine. No chest pain. No palpitations. No shortness of breath. Fluid retention improved. Notes weighing 337 this AM, the lowest he has been in the last year. I/O's -9,687 mL's overall. Weight 171.3 -> 153.3 Telemetry: Paced in the 60's-70's. Review of Systems Review of Systems: Complete Review of Systems is as stated above, negative, or noncontributory. Physical Exam Physical Exam: Examined in the bedside chair General: A&Ox3. NAD. HENT: Normocephalic. Atraumatic. Eyes: PER. Conjunctiva pink, sclera clear. Neck: No carotid bruits. No overt JVD. Heart: RRR, 70 bpm. No murmur. Lungs: Clear to auscultation. Abdomen: Obese. +BS. Soft. Nontender. No masses or organomegaly. Extremities: Trace to 1+ chronic indurated edema with left greater than right lower extremity erythema, stasis changes. No clubbing. No cyanosis. Limited neurological examination is without focal deficits. Pulses: radial=2/4, posterior tibial=0/4. Results & Data Vital Signs (Past 12 Hours) Vital Signs Temp Pulse Pulse Pulse Resp BP BP 02/25/23 07:26 36.6 C 60 20 108/69 02/25/23 03:10 36.4 C L 60 15 100/65 02/24/23 23:06 60 02/24/23 23:05 36.9 C 60 18 114/76 Pulse Ox O2 Del Method 02/25/23 07:26 90 Room Air 02/25/23 03:10 93 Room Air 02/24/23 23:06 02/24/23 23:05 91 Room Air Laboratory Results CBC 02/25/23 Range/Units 06:10 WBC 5.69 (4.8-10.8) K/ul RBC 3.98 L (4.70-6.10) M/uL Hgb 12.4 L (14.0-18.0) g/dl Hct 37.9 L (42.0-52.0) % Plt Count 197 (130-400) K/uL Comprehensive Metabolic Panel 02/25/23 Range/Units 06:10 Sodium 139 (136-145) mmol/L Potassium 4.3 (3.5-5.1) mmol/L Chloride 97 L (98-107) mmol/L Carbon Dioxide 36 H (21-32) mmol/L BUN 53 H (6-23) mg/dl Creatinine 2.74 H (0.6-1.4) mg/dl Glucose 105 H (70-99(Fasting)) mg/dl Calcium 8.9 (8.6-10.3) mg/dl Intake and Output 02/24/23 02/25/23 02/25/23 22:59 06:59 14:59 Intake Total 290 / 470 Output Total / 252 / 2524 Balance - - Intake: Oral 290 / 470 Output: Urine / 2524 Other: Weight 153.3 kg Weight Measurement Method Built in [facility]
--- NOTE | 2023-02-25 13:48 | Discharge Summary ---
Date of Service February 25, 2023 Admission HPI Per Admitting Provider 72-year-old male past med significant for hyperlipidemia, prediabetes, chronic systolic heart failure, history of right ventricle tachycardia, s/p AICD, history of IL, morbid obesity, history of bladder cancer s/p surgery, chronic kidney disease stage III,former smoker who was recently in the hospital for acute systolic CHF and is diuresed with IV Lasix and discharged with increased dose of Lasix of 60 mg twice daily and during hospitalization he was also treated for cellulitis of lower extremity with Rocephin and Dapto and discharged on 3 days of doxycycline to rehab was sent in because of worsening renal function. Patient states he supposed to go home but he was told his renal function got worse and he was sent to the hospital. Says he is micturating fine. He denies any chest pain or shortness of breath. No cough. Afebrile. Eating and drinking okay. No dysphagia. No headache. Says he is always dizzy from his meds. No earache or runny nose or sore throat. No nausea or abdominal pain. Normal bowel movements. Currently resting comfortably and hemodynamically stable. He has edema in the lower extremity but he states is much better than in previous admit. He says during last admission he could not even move his left leg because it was heavy from the edema but now is able to move and lift it okay. Past medical history as mentioned above Past surgical history excision of tumor upper arm subcutaneous, excision of soft tissue tumor back or flank, left heart catheterization, cystoscopy, cystourethroscopy with fulguration of bladder tumor, I&D of abscess of right thigh, s/p AICD, repair of inguinal hernia, Social history single, former smoker quit in 1995 smoked 1 pack a day for 10 years, not drinking currently, no drug use,. Family history father of IL at age of 29, mother had heart disorder 2 open heart surgeries age greater than 60, half sister has diabetes and heart disorder Admission Exam Per Admitting Provider General- Not in distress Head- atraumatic Eyes- PERRL, ENT- oropharynx clear Neck- supple, Lungs- clear to auscultation and percussion no added sounds heard Heart- regular rate and rhythm; no murmur, no gallop Abdomen- normal bowel sounds, soft, nontender, no dsitension Extremities- b/l lower extremity gross present. no skin rears seen Neuro- alert, oriented x 3; PERRL, no facial palsy; no dysarthria; obeys commands, insight good, moves extremities Skin- warm & dry Principal Diagnosis THANH on CKD Acute on chronic diastolic heart failure Discharge Exam General- Not in distress Head- atraumatic Eyes- PERRL, ENT- oropharynx clear Neck- supple, Lungs- clear to auscultation and percussion no added sounds heard Heart- regular rate and rhythm; no murmur, no gallop Abdomen- normal bowel sounds, soft, nontender, no distension Extremities- b/l lower extremity edema present; overlying erythema. Chronic Neuro- alert, oriented x 3; PERRL, no facial palsy; no dysarthria; obeys commands, insight good, moves extremities Skin- warm & dry Discharge Data Allergies Allergy/AdvReac Type Severity Reaction Status Date / Time yellow dye Allergy Unknown Hives Verified 02/20/23 19:29 Consultations 02/19/23 23:43 Consult Cardiology Routine 02/20/23 08:00 Consult Nephrology Routine Hospital Course (1) THANH (acute kidney injury): Patient is a 72 yr male with H/O Hyperlipidemia, prediabetes, chronic systolic heart failure, history of right ventricle tachycardia, s/p AICD, history of IL, morbid obesity, history of bladder cancer s/p surgery, chronic kidney disease stage III,former smoker. He was recently in the hospital(02/07 to 02/11) for acute systolic CHF and is diuresed with IV Lasix. He was discharged with increased dose of Lasix of 60 mg twice daily. During the previous hospitalization, he was also treated for cellulitis of lower extremity with Rocephin and Dapto and discharged on 3 days of doxycycline. He was sent back to the hospital due to increasing creatinine level. On presentation, his creatinine was found to be 3.3. Nephrology and cardiology were consulted for comanagement. Patient was started on IV Lasix 80 mg twice daily. Improvement was noted in bilateral lower extremity edema; his creatinine also improved to around 2. 5-2.8. PT OT evaluation was done; was recommended home. Patient was discharged home with Lasix of 80 mg twice daily as per recommended by nephrology. Lisinopril was kept on hold at discharge. He was recommended to follow-up with nephrology as outpatient in 1 to 2 weeks. Also, to follow-up with his primary care doctor as outpatient. Other medication was continued as before. Please note the above document was generated using voice recognition software. It may contain grammatical, syntax or spelling errors. Any formal questions or concerns about the content, text or information contained within the body of this dictation should be directly addressed to the provider for clarification Total Time Total Time Spent Total Time Spent (In Minutes): 45 Total Time Includes: Examination of the Patient, Discharge Planning, Medication Reconciliation, Communication With Other Providers and Other Discharge Plan Discharge Items Patient Disposition: Home - Self-Care Reason For Visit: THANH Discharge Diagnosis: THANH on CKD Activity: Resume your previous activity Non-emergency contact: Primary Care Provider Call non-emergency contact if: you have any medication questions and your symptoms worsen Follow-up/Referrals: Kd Castellon MD [Primary Care Provider] - (Date & Time 03/04/2023 11:20 AM Provider Edward Pan MD Department Family Medicine [facility] ) Diet: Regular Addtl Attending Provider Instructions: You were admitted to the hospital with acute kidney injury and heart failure. The following changes have been made to your medication regimen: 1) stop taking lisinopril. 2) Lasix dosing increased to 80 mg twice daily. Take 1 tablet in the morning after waking up and on the tablet at lunch. Please follow-up with your primary care doctor as scheduled. Repeat basic metabolic panel to check on the kidney function. You need to follow-up with nephrology in 1 week time. You will receive a call from their office for the appointment. Pending Studies at Discharge: No Stand-Alone Forms: [facility] Medications and DC Order Prescriptions: New furosemide 80 mg Tablet 80 mg PO [id number] Qty: 60 0RF Continued metoprolol succinate 200 mg tablet extended release 24 hr 200 mg PO HS aspirin 81 mg capsule 81 mg PO DAILY Qty: 30 0RF atorvastatin 40 mg tablet 40 mg PO HS Qty: 30 0RF amiodarone 200 mg tablet See Rx Instructions .ROUTE .COMPLEX Qty: 30 0RF Rx Instructions: 100mg by mouth in the morning and 200mg by mouth at bedtime acetaminophen 500 mg capsule 1,000 mg PO Q8H PRN (Reason: Pain) Qty: 60 0RF tadalafil 5 mg Tablet 5 mg PO DAILY@1700 Qty: 30 0RF magnesium oxide 400 mg magnesium Tablet 400 mg PO QAM Qty: 60 0RF Discontinued furosemide 40 mg tablet 60 mg PO BID Qty: 60 0RF lisinopril 5 mg tablet 5 mg PO .5:00PM Qty: 30 0RF Discharge Orders: Discharge Order (Routine); Ordered 02/25/23 Ordered By: Baldomero Mccartney Admission Data Admit Date/Time: 02/19/23 20:30 Attending Provider: Baldomero Mccartney Admit Provider: Tyrone Lambert Primary Care Provider: Kd Castellon Other Providers: Hank Segura ; Jevon Lozano ; Wilman James Other Interventions: Discharge Summary Assessment (RN) Last Done: 02/25/23 11:59
== END 2023-02-25 15:26 | disposition home or self-care (01) | DRG 682 ==
LOC: ED 15:48 → SUATTDRO 20:30 → 2S 20:30

== ENCOUNTER 2023-08-27 09:29 | Inpatient (IN) ==
--- NOTE | 2023-08-27 09:43 | Emergency Department Note ---
Impression & Plan Fall, Hypoxia, Facial bones, closed fracture, Fracture closed, nasal bone, Acute anterior epistaxis ED Provider Note NAME: ASHA LEMUS AGE: 73 SEX: M : 1950 ARRIVES VIA: Ambulance INFORMANT: Patient, EMS ED PROVIDER(S): Phill Vides DO CHIEF COMPLAINT: Fall HPI: The patient is a 73-year-old male who presented to the emergency department after a fall. The patient was walking across the street when he fell straight forward onto his face. The patient had significant facial trauma. The patient had bilateral nosebleeds and was having difficulty breathing. He was found to be hypoxic prior to arrival. The patient himself denies having any loss conscious. He states he tripped while he was using his cane. He denies having any leg pain or back pain. He denies having any nausea or vomiting. He denies having any chest pain. ROS: See above HPI for pertinent positives & negatives. A total of 10 systems reviewed and were otherwise negative. PAST MEDICAL HISTORY: See Below PAST SURGICAL HISTORY: See Below FAMILY HISTORY: See Below SOCIAL HISTORY: See Below HOME MEDICATIONS: See Below ALLERGIES: See Below VITALS: See Below PHYSICAL EXAMINATION: GENERAL: The patient is awake alert. The patient is very anxious. EYES: The conjunctivae are clear. The pupils are round and reactive. EARS, NOSE, MOUTH AND THROAT: The nose is without any evidence of any deformity. There is clotted blood in both nares. There is blood in the oropharynx. There were facial abrasions and lacerations noted over the forehead and the bridge of the nose. NECK: The neck is nontender and supple. RESPIRATORY: Diminished breath sounds are noted throughout. r rales CARDIOVASCULAR: Regular rate and rhythm noted there no murmurs rubs or gallops normal S1 normal S2. GASTROINTESTINAL: The abdomen is soft. Abdomen is nontender. MUSCULOSKELETAL/EXTREMITIES: There is no evidence of gross deformity full range of motion is noted in the hips and shoulders. SKIN: There is no obvious evidence of any rash. Pedal edema was noted bilaterally. NEUROLOGIC: Patient is awake alert and oriented x3. Strength is symmetric. MEDICAL DECISION MAKING: The patient is a 73-year-old male who presented to the emergency department for an evaluation after a fall. The patient had a witnessed fall while he was ambulating across the street. He had significant facial injury upon arrival to the emergency department. He was found to have epistaxis which was treated initially with pressure. Clots were suctioned from the right nares especially. A nose clip was applied. The patient was treated with nebulized TXA as well. Bleeding was significantly improved on reevaluation. I discussed the patient's laboratory and radiographic studies with him. He was found to have multiple facial bone fractures including nasal bone fractures. The patient was improved on reevaluation but because of his hypoxia I discussed his condition with the on-call [facility]. I also discussed his condition with the oral maxillofacial surgeon. Triage Nursing notes reviewed. Prior medical records reviewed Vital Signs: reviewed and remarkable for hypoxia and low-grade fever. Differential diagnosis: Fracture, dislocation, contusion, intra-abdominal, pneumothorax, intrathoracic, intracranial, neurologic, compartment syndrome, rhabdomyolysis, as well as other pathologies. ER treatment provided: See below Diagnostics interpreted by me: ECG: EKG was obtained in the emergency department. My interpretation is dual- chamber pacemaker at 62 bpm. There were no council beats. A left bundle block pattern was favored. This was compared to a tracing from February 19, 2023. No changes were noted. Cardiac Monitoring: An order was placed for continuous cardiac monitoring. The monitor shows a rate of 60 bpm with paced rhythm. Laboratory studies: As stated above and show below. Imaging studies: See below. Radiographic imaging was reviewed by myself Consultation(s): I discussed this case with Mitzi who is on-call for the [facility] I discussed this case with Dr. Pastrana. ED COURSE: Procedures: none Critical Care: I have personally spent greater than 45 minutes of critical care time in the direct management of this patient. This includes bedside care, interpretation of diagnostic studies, and testing, discussion with consultants, patient, and family members, and other required patient management activities. This 45 minutes is in excess of all separately billable procedures. Past Med/Surg History Medical History Abdominal hernia CKD (chronic kidney disease), stage III Bladder cancer Perinephric hematoma THANH (acute kidney injury) Hematuria History of placement of internal cardiac defibrillator Diabetes Obesity Erectile dysfunction Ventricular arrhythmia Surgical History History of cardiac cath Hx of hernia repair Social History Smoking Status: Never smoker Tobacco Type: Cigarettes Second Hand Exposure: No; Do You Dip or Chew Tobacco: No; Hx Alcohol Use: No Hx Substance Use: No Preferred Language: Moroccan Communication Ability: Effective Desolderer Required: No Beliefs That Will Affect Care: None marital status: alone Current Living Situation: Alone current occupational status: retired How many Children do You have: 0 Other Information That Helps Us Care for You: No Feels Safe at Home: Yes Safety Concerns: Feels Safe At This Time Diet: regular during the past year weight has: decreased > 10 lbs Physical Activity Frequency: Does not Exercise Do you think of yourself as: straight/heterosexual Gender Identity: Male Assistive Devices: Cane Allergies Allergies Allergy/AdvReac Type Severity Reaction Status Date / Time yellow dye Allergy Unknown Hives Verified 08/27/23 11:46 Home Meds Home Medications Medication Instructions Recorded Confirmed metoprolol succinate 200 mg 200 mg PO HS 02/19/23 08/27/23 tablet,extended release 24 hr amiodarone 200 mg tablet 300 mg PO QAM 08/27/23 08/27/23 cholecalciferol (vitamin D3) 25 25 mcg PO QAM 08/27/23 08/27/23 mcg (1,000 unit) tablet (Vitamin D3) furosemide 80 mg tablet 80 mg PO BID 08/27/23 08/27/23 Previous Rx's Medication Instructions Recorded acetaminophen 500 mg capsule 1,000 mg (2 x 500 mg) PO Q8H PRN 02/11/23 Pain #60 caps atorvastatin 40 mg tablet 40 mg PO HS #30 tabs 02/11/23 magnesium oxide 400 mg PO QAM #60 tabs 02/11/23 tadalafil 5 mg tablet 5 mg PO DAILY@1700 #30 tabs 02/11/23 Results & Data (ED) Vital Signs Vital Signs - 24 hr 08/27/23 09:48 08/27/23 10:00 08/27/23 10:00 Pulse Rate 61 Pulse Rate [Apical] 60 Pulse Rate from SpO2 Sensor Respiratory Rate 21 21 Blood Pressure 154/87 H Blood Pressure Mean 109 Pulse Oximetry 92 96 96 Oxygen Delivery Method Nebulizer Nebulizer Nebulizer Oxygen Flow Rate 6 6 2 Sepsis Recent Fever Within 48 Hours No Sepsis New/Unexplained Change in Mental Status No Sepsis Action Taken by Nursing No Action Required 08/27/23 10:08 08/27/23 11:20 08/27/23 11:30 Pulse Rate 60 61 60 Pulse Rate [Apical] Pulse Rate from SpO2 Sensor 61 60 Respiratory Rate 16 19 Blood Pressure Blood Pressure Mean Pulse Oximetry 100 94 Oxygen Delivery Method Non-rebreather Oxymask Oxygen Flow Rate 15 6 Sepsis Recent Fever Within 48 Hours Sepsis New/Unexplained Change in Mental Status Sepsis Action Taken by Nursing 08/27/23 12:00 08/27/23 12:30 Pulse Rate 64 60 Pulse Rate [Apical] Pulse Rate from SpO2 Sensor 64 60 Respiratory Rate 23 20 Blood Pressure 131/76 Blood Pressure Mean 94 Pulse Oximetry 98 92 Oxygen Delivery Method Oxymask Oxymask Oxygen Flow Rate 6 6 Sepsis Recent Fever Within 48 Hours Sepsis New/Unexplained Change in Mental Status Sepsis Action Taken by Custodial Medications Current Medication List: was personally reviewed by me Laboratory Data Attestation: I reviewed the patient's lab results. 08/27/23 09:55 08/27/23 09:55 Lab Results 08/27/23 08/27/23 Range/Units 09:55 11:56 WBC 4.74 L (4.8-10.8) K/ul RBC 4.43 L (4.70-6.10) M/uL Hgb 13.9 L (14.0-18.0) g/dl Hct 42.2 (42.0-52.0) % MCV 95.3 (80.0-100.0) fL MCH 31.4 (25.0-34.0) pg MCHC 32.9 (32.0-36.0) g/dL RDW Std Deviation 49.1 H (36.4-46.3) fL RDW Coeff of Adriana 13.9 (11.5-14.5) % Plt Count 119 L (130-400) K/uL MPV 11.7 (9.4-12.4) fL Immature Gran % (Auto) 1.1 % Neut % (Auto) 70.7 % Lymph % (Auto) 10.5 % Pierce % (Auto) 17.5 % Eos % (Auto) 0.0 % Baso % (Auto) 0.2 % Neut # (Auto) 3.35 (1.40-6.50) K/uL Lymph # (Auto) 0.50 L (1.20-3.40) K/uL Pierce # (Auto) 0.83 H (0.11-0.59) K/uL Eos # (Auto) 0.00 (0.00-0.50) K/uL Baso # (Auto) 0.01 (0.00-0.20) K/uL Immature Gran # (Auto) 0.05 (0.01-0.20) K/uL PT 12.3 H (9.0-12.0) Seconds INR 1.1 (0.9-1.1) APTT 31 (21-31) Seconds PTT Ratio 1.1 Sodium 135 L (136-145) mmol/L Potassium 4.2 (3.5-5.1) mmol/L Chloride 93 L (98-107) mmol/L Carbon Dioxide 33 H (21-32) mmol/L Anion Gap 9 (3-11) BUN 39 H (6-23) mg/dl Creatinine 2.22 H (0.6-1.4) mg/dl Est Cr Clr Drug Dosing 45.0 ml/min Est GFR ( Amer) 33.1 ml/min Est GFR (Non-Af Amer) 28.5 ml/min BUN/Creatinine Ratio 17.6 (10-20) Glucose 111 H (70-99(Fasting)) mg/dl Calcium 8.3 L (8.6-10.3) mg/dl Total Bilirubin 0.5 (0.2-1.0) mg/dl AST 141 H (13-39) U/L ALT 108 H (7-52) U/L Alkaline Phosphatase 79 (34-104) U/L Troponin I High Sens 25.0 H 49.3 H D (0-20) pg/ml Total Protein 6.9 (6.0-8.3) gm/dl Albumin 3.8 (3.4-5.0) gm/dl Globulin 3.1 (2.5-4.0) gm/dl Albumin/Globulin Ratio 1.2 (0.9-2) Lipase 25 (11-82) U/L Administered Medications Ondansetron HCl (Ondansetron Inj 2 Mg/Ml 2 Ml Vial) 4 mg IV Q6H KHLOE Stop: 09/26/23 13:59 Last Admin: 08/27/23 14:21 Dose: 4 mg Documented By: ELIZABETH Discontinued Medications Ampicillin Sodium/Sulbactam Sodium 3,000 mg/ Sodium Chloride 100 mls @ 200 mls/hr IV NOW STA Stop: 08/27/23 11:20 Last Infusion: 08/27/23 12:07 Dose: Infused Documented By: Admin: 08/27/23 11:18 Dose: 200 mls/hr Documented By: ELIZABETH Tranexamic Acid (Txa 10% Non-Iv Routes 100 Mg/Ml Vial) 500 mg NEB ONE ONE Stop: 08/27/23 10:01 Last Admin: 08/27/23 09:56 Dose: 500 mg Documented By: ANCELMO Imaging Data Attestation: I personally reviewed and interpreted this imaging study as follows: My Impression: CT of the head was obtained in the emergency department. My interpretation is no intracranial hemorrhage or mass effect, final report below. 1 view chest x-ray was obtained in the emergency department. My interpretation is no free air or definite infiltrate, final report below. Radiologist's Impression: Cervical Spine CT 08/27/23 09:[address] DOSE: HISTORY: Fall. Head and facial injuries. TECHNIQUE: Multiaxial CT images of the cervical spine were performed and reformatted in the sagittal and coronal plane without the use of contrast. A dose lowering technique was utilized adhering to the principles of ALARA. COMPARISON: None. FINDINGS: No fractures. No subluxation. Prevertebral soft tissues and the C1-C2 interval are intact. No pneumothorax. Left-sided pacemaker wires are partially visualized. There is a multinodular thyroid gland noted. Mild to moderate degenerative changes within the cervical spine. IMPRESSION: No fractures within the cervical spine. ACT 112: Negative or not required by law. Electronically signed by: Jonah Jenkins M.D. 08/27/2023 10:[address] 08/27/23 09:39 CT facial bones wo con CLINICAL HISTORY: fall TECHNIQUE: Multidetector row helical CT of the maxillofacial bones was performed without administration of intravenous contrast, and processed with bone and soft tissue algorithms. Coronal and sagittal reformations were obtained. Automated dose lowering techniques and/or adjustment according to patient size were utilized for this exam. Comparison: None available at the time of this dictation. FINDINGS: Fractures of the bilateral nasal bones noted with associated soft tissue swelling. Prominent periapical abscess is seen about the second left mandibular incisor. The temporomandibular joints are anatomically aligned. Pterygoid plates are intact. There are fractures of the bilateral laminae papyracea. Bilateral hyperdense fluid is noted in the maxillary sinuses. There is a fracture of the inferior orbital wall on the right with herniation of fat. The globes are normal and symmetric, without proptosis, obvious disruption or lens dislocation. There is no orbital radiopaque foreign body. The orbital james are intact. Right retrobulbar fat herniates into the maxillary sinus but the extraocular muscles are unaffected. Extraocular muscles are normal and symmetric. Optic nerve sheath complexes are normal in course and caliber. Imaged portions of the paranasal sinuses and mastoid air cells are clear. IMPRESSION: Fractures of the nasal bones and laminae papyracea bilaterally. There is a fracture of the right inferior orbital wall with herniation of only fat. ACT 112: Negative or not required by law. Electronically signed by: Martínez Caraballo M.D. 08/27/2023 10:[address] 08/27/23 09:39 CT head/brain wo con CLINICAL HISTORY: fall Technique: Contiguous axial CT images of the head were acquired from the base of the skull to the vertex without intravenous contrast administration. Images were viewed in brain, subdural and bone windows. Automated dose lowering techniques and/or adjustment according to patient size were utilized for this exam. Comparison: Comparison is made to CT head 12/29/2023 Findings: The ventricles, basal cisterns, and cerebral sulci are normal. There is no acute intracranial hemorrhage or evidence of acute territorial infarction. Neither mass effect, shift of the midline structures, nor abnormal extra-axial fluid collections are shown. Partial visualization of facial fractures better seen on dedicated CT. The orbits appear normal. There are no acute fractures of the calvaria. Scalp swelling is seen in the midline frontal region. Impression: 1. No acute intracranial hemorrhage or skull fractures. Scalp swelling is seen in the midline frontal region. 2. Please see dedicated CT maxillofacial for findings of facial fractures. ACT 112: Negative or not required by law. Electronically signed by: Martínez Caraballo M.D. 08/27/2023 10:29 AM Chest X-Ray 08/27/23 09:40 SINGLE VIEW CHEST CLINICAL HISTORY: Atypical chest pain. FINDINGS: 2 AP upright chest radiograph*compared to study dated 02/19/2023 and correlated with chest CT dated 02/08/2010. The examination is degraded by portable technique and patient rotation. A 3-lead cardiac AICD is unchanged in position. The heart is enlarged and noting atherosclerotic calcification of the thoracic aorta. There is mild pulmonary vascular congestion. Scarring/atelectasis is seen at the lung bases. No airspace consolidation or large pleural effusion is identified. No pneumothorax is seen. The skeletal structures are osteopenic. The bony thorax is grossly intact. IMPRESSION: Cardiomegaly and AICD with mild pulmonary vascular congestion. ACT 112: Negative or not required by law. Electronically signed by: Michele Miner M.D. 08/27/2023 11:20 AM Pelvis X-Ray 08/27/23 09:43 XR pelvis 1-2V routine CLINICAL HISTORY: fall TECHNIQUE: A single frontal view of the pelvis was obtained. Comparison: Comparison is made to hip radiographs 02/07/2023 FINDINGS: There is no evidence of an acute fracture. Degenerative changes are seen in the hip joints and lumbar spine. No soft tissue abnormality is seen. IMPRESSION: No evidence of acute osseous injury. ACT 112: Negative or not required by law. Electronically signed by: Martínez Caraballo M.D. 08/27/2023 11:10 AM Discharge Plan Visit Data Chief Complaint: Fall Stated Complaint: FALL, LAC TO HEAD, NASAL FX ED Provider: Phill Vides Discharge Problem: Fall, Hypoxia, Facial bones, closed fracture, Fracture closed, nasal bone, Acute anterior epistaxis Patient Disposition: Admitted As Inpatient Discharge Instructions Interventions: ED Discharge Assessment Last Done: 08/27/23 14:35 Discharge Problem: Fall Qualifiers: Encounter type: initial encounter Qualified Code(s): W19.XXXA - Unspecified fall, initial encounter Facial bones, closed fracture Qualifiers: Encounter type: initial encounter Facial bone/location: unspecified facial bone Qualified Code(s): S02.92XA - Unspecified fracture of facial bones, initial encounter for closed fracture Fracture closed, nasal bone Qualifiers: Encounter type: initial encounter Qualified Code(s): S02.2XXA - Fracture of nasal bones, initial encounter for closed fracture
[2023-08-27] MEDS: TXA 10% Non-IV Routes 100 MG/ML VIAL NEB ONE (09:56)
[2023-08-27 10:22] LABS: Basophils # (auto) 0.01 K/uL (0.00-0.20); Basophils % (auto) 0.2 %; Hematocrit (blood only) 42.2 % (42.0-52.0); Hemoglobin 13.9 g/dl (14.0-18.0); Immature Granulocytes # (auto) 0.05 K/uL (0.01-0.20); Immature Granulocytes % (auto) 1.1 %; Lymphocytes % (auto) 10.5 %; Mean Corpuscular Hemoglobin 31.4 pg (25.0-34.0); Mean Corpuscular Hgb Conc 32.9 g/dL (32.0-36.0); Mean Corpuscular Volume 95.3 fL (80.0-100.0); Mean Platelet Volume 11.7 fL (9.4-12.4); Monocytes # (auto) 0.83 K/uL (0.11-0.59); Monocytes % (auto) 17.5 %; Neutrophils # (auto) 3.35 K/uL (1.40-6.50); Neutrophils % (auto) 70.7 %; Platelet Count 119 K/uL (130-400); RDW Coefficient of Variation 13.9 % (11.5-14.5); RDW Standard Deviation 49.1 fL (36.4-46.3); Red Blood Count 4.43 M/uL (4.70-6.10); White Blood Count 4.74 K/ul (4.8-10.8)
--- NOTE | 2023-08-27 10:30 | CT Scan Report ---
CT head/brain wo con CLINICAL HISTORY: fall Technique: Contiguous axial CT images of the head were acquired from the base of the skull to the nelson tim without intravenous contrast administration. Images were viewed in brain, subdural and bone windo ws. Automated dose lowering techniques and/or adjustment according to patient size were utilized for this exam. Comparison: Comparison is made to CT head 12/29/2023 Findings: The ventricles, basal cisterns, and cerebral sulci are normal. There is no acute intracranial hemorrh age or evidence of acute territorial infarction. Neither mass effect, shift of the midline structures , nor abnormal extra-axial fluid collections are shown. Partial visualization of facial fractures better seen on dedicated CT. The orbits appear normal. Ther e are no acute fractures of the calvaria. Scalp swelling is seen in the midline frontal region. Impression: 1. No acute intracranial hemorrhage or skull fractures. Scalp swelling is seen in the midline fronta l region. 2. Please see dedicated CT maxillofacial for findings of facial fractures. ACT 112: Negative or not required by law. Electronically signed by: Martínez Caraballo M.D. 08/27/2023 10:29 AM
[2023-08-27 10:34] LABS: Albumin Globulin Ratio 1.2 (0.9-2); Albumin Level 3.8 gm/dl (3.4-5.0); BUN Creatinine Ratio 17.6 (10-20); Bilirubin,Total 0.5 mg/dl (0.2-1.0); Calcium 8.3 mg/dl (8.6-10.3); Est GFR (African American) 33.1 ml/min; Est GFR (Non-African American) 28.5 ml/min; Globulin 3.1 gm/dl (2.5-4.0); Potassium 4.2 mmol/L (3.5-5.1); Total Protein 6.9 gm/dl (6.0-8.3)
[2023-08-27 10:43] LABS: INR 1.1 (0.9-1.1); Partial Thromboplastin Ratio 1.1; Partial Thromboplastin Time 31 Seconds (21-31); Prothrombin Time 12.3 Seconds (9.0-12.0)
--- NOTE | 2023-08-27 10:47 | CT Scan Report ---
CT facial bones wo con CLINICAL HISTORY: fall TECHNIQUE: Multidetector row helical CT of the maxillofacial bones was performed without administrati on of intravenous contrast, and processed with bone and soft tissue algorithms. Coronal and sagittal reformations were obtained. Automated dose lowering techniques and/or adjustment according to patient size were utilized for this exam. Comparison: None available at the time of this dictation. FINDINGS: Fractures of the bilateral nasal bones noted with associated soft tissue swelling. Prominent periapic al abscess is seen about the second left mandibular incisor. The temporomandibular joints are anatomi adelaida aligned. Pterygoid plates are intact. There are fractures of the bilateral laminae papyracea. Bilateral hyperdense fluid is noted in the maxillary sinuses. There is a fracture of the inferior orb ital wall on the right with herniation of fat. The globes are normal and symmetric, without proptosis, obvious disruption or lens dislocation. Ther e is no orbital radiopaque foreign body. The orbital james are intact. Right retrobulbar fat herniate s into the maxillary sinus but the extraocular muscles are unaffected. Extraocular muscles are normal and symmetric. Optic nerve sheath complexes are normal in course and caliber. Imaged portions of the paranasal sinuses and mastoid air cells are clear. IMPRESSION: Fractures of the nasal bones and laminae papyracea bilaterally. There is a fracture of the right infe rior orbital wall with herniation of only fat. ACT 112: Negative or not required by law. Electronically signed by: Martínez Caraballo M.D. 08/27/2023 10:46 AM
--- NOTE | 2023-08-27 10:47 | CT Scan Report ---
CERVICAL SPINE CT CT DOSE: HISTORY: Fall. Head and facial injuries. TECHNIQUE: Multiaxial CT images of the cervical spine were performed and reformatted in the sagittal and coronal plane without the use of contrast. A dose lowering technique was utilized adhering to th e principles of ALARA. COMPARISON: None. FINDINGS: No fractures. No subluxation. Prevertebral soft tissues and the C1-C2 interval are intact. No pneumothorax. Left-sided pacemaker wires are partially visualized. There is a multinodular thyroid gland noted. Mild to moderate degenerative changes within the cervical spine. IMPRESSION: No fractures within the cervical spine. ACT 112: Negative or not required by law. Electronically signed by: Jonah Jenkins M.D. 08/27/2023 10:46 AM
--- NOTE | 2023-08-27 11:12 | XRay Report ---
XR pelvis 1-2V routine CLINICAL HISTORY: fall TECHNIQUE: A single frontal view of the pelvis was obtained. Comparison: Comparison is made to hip radiographs 02/07/2023 FINDINGS: There is no evidence of an acute fracture. Degenerative changes are seen in the hip joints and lumbar spine. No soft tissue abnormality is seen. IMPRESSION: No evidence of acute osseous injury. ACT 112: Negative or not required by law. Electronically signed by: Martínez Caraballo M.D. 08/27/2023 11:10 AM
[2023-08-27] MEDS: AMPICILLIN/SULBACTAM SOD 3,000 MG in SODIUM CHLOR 0.9% MINI-B 100 ML IV STA (11:18)
--- NOTE | 2023-08-27 11:23 | XRay Report ---
SINGLE VIEW CHEST CLINICAL HISTORY: Atypical chest pain. FINDINGS: 2 AP upright chest radiograph*compared to study dated 02/19/2023 and correlated with chest C T dated 02/08/2010. The examination is degraded by portable technique and patient rotation. A 3-lead c ardiac AICD is unchanged in position. The heart is enlarged and noting atherosclerotic calcification of the thoracic aorta. There is mild pulmonary vascular congestion. Scarring/atelectasis is seen at t he lung bases. No airspace consolidation or large pleural effusion is identified. No pneumothorax is seen. The skeletal structures are osteopenic. The bony thorax is grossly intact. IMPRESSION: Cardiomegaly and AICD with mild pulmonary vascular congestion. ACT 112: Negative or not required by law. Electronically signed by: Michele Miner M.D. 08/27/2023 11:20 AM
--- NOTE | 2023-08-27 12:46 | History & Physical Report ---
Date of Service August 27, 2023 Assessment & Plan (1) Facial fracture: (2) Tooth abscess: (3) Fall: (4) Swelling of scalp: (5) Pancytopenia: (6) Hyponatremia: (7) Elevated liver enzymes: (8) CKD (chronic kidney disease): (9) RUQ abdominal pain: Plan Pt is a 73yoM with PMHx significant for hyperlipidemia, prediabetes, chronic systolic heart failure, history of nonischemic cardiomyopathy, Hx of ventricular tachycardia, s/p AICD, history of [place], morbid obesity, history of bladder cancer s/p surgery, chronic kidney disease stage III, former smoker presenting after a fall in a parking lot with facial fractures. Facial fractures Pt with fall in parking lot, states he believes he stumbled while using cane CT face noting fractures of the bilateral nasal bone, bilateral laminae papyracea and fracture of the R inferior orbital wall with herniation of fat Oromaxillofacial surgery consulted: -case discussed on 08/[address] Pastrana: advised to keep NPO with sips/chips for the next few hours, continue to apply nasal compression and as long as there is no further bleeding, pt may be allowed to eat as there would be no indication for surgery at that time. However, he notes that if bleeding continues as a very last resort will consider posterior nasal packing in the OR. -requesting to be contacted at [phone] should pt develop any vision issues. -recommending continued abx treatment Pain Control NPO with sips and chips at this time, monitor for continued bleeding Continue Unasyn Epistaxis Pt with significant epistaxis in setting of fractures above Received dose of tranexamic acid, nasal compression in the ED Continue to monitor and resume po intake once bleeding controlled per Dr Pastrana H/H monitoring On oxymask to help with breathing in setting of nasal compression and nasal bleeding with clots Tooth Abscess, periapical Face CT noting periapical tooth abscess near 2nd L mandibular incisor On Unasyn as noted above Consider dental outpt f/u Fall Weakness Scalp swelling/contusion By pt description appears mechanical, though concern for weakness Denies LOC Head CT with no acute bleed but does note scalp swelling in midline frontal region Facial fractures noted as above Cervical spine CT with no acute fractures Pelvic XRAY with no acute fractures UA ordered and pending to rule out as a possible cause Lyme/Anaplasma with noted pancytopenia Repeat Echo pending, previous from 02/15 noted EF 40-45%, moderate aortic valve sclerosis w/o significant aortic stenosis Pt with AICD- order placed to interrogate (see below) to r/o as possible cause o f fall PT/OT Cardiomegaly Nonischemic cardiomyopathy Hx of Monomorphic VT Presence of AICD HFrEF Elevated troponin hs-trop elevated at 25, increased to 49.3 EKG noting paced rhythm Repeat Echo pending, previous from 02/15 noted EF 40-45%, moderate aortic valve sclerosis w/o significant aortic stenosis, mild global hypokinesis of LV, mild- to mod mitral regurg Chest XRAY noting cardiomegaly, AICD with mild pulmonary vascular congestion Trend trop to peak Doubt ACS, likely demand Pt with AICD- order placed to interrogate as noted above Pt was supposed to have his Cardiology appt today when he fell in the parking lot. Per [facility] review and last pcp note, pt was frustrated about his previous Cardiology appts being canceled. Also letter to pt in [facility], from 08/05/2023 advising pt to come in for a Cardiology/pacer visit as there is an "active advisory" on his ICD that needs adjusted. Unsure if it had been done. Continue home amiodarone 300mg (liver enzymes currently elevated-see below, AM TSH pending), Lasix 80mg BID, metoprolol succinate 200mg qhs as soon as able to tolerate po Consider Cardiology consult while inpatient especially in setting of acute blood loss stressor Pancytopenia Leukopenia noted-slight, acute Anemia- chronic: follow AM iron panel, ferritin, b12, folate levels Thrombocytopenia-acute Peripheral smear ordered and pending r/o tick borne lyme/anaplasma as possible cause and in setting of fall/weakness noted above Monitor with AM labs, if pancytopenia persistent consider Hematology consult Hyponatremia Slight, acute Sodium of 134 Continue to monitor with AM labs Consider further workup if persistent Elevated Liver enzymes RUQ abdominal pain AST and ALT elevated at 141 and 108 respectively Pt on amiodarone which can cause hepatotoxicity- noted baseline on 08/19/23 of ALT of 15 and AST of 18 in [facility] Pt also with RUQ abd tenderness on exam, notes he has "gallbladder issues" Liver US ordered and pending Hold home statin at this time in the setting of elevated enzymes above CKD Pt with Cr of 2.22 Known kidney disease, recent baseline appears to be ~2.2 noted in [facility] on 08/19 Given HFreF Hx and chest xray, cautious fluids as needed Pt follows with Nephrology Prediabetes Glucose level slightly elevated at 111 AM [id number] pending HLD Holding home statin in setting of elevated liver enzymes as noted above ED Holding home tadalafil Vit D def Continue home supplement Diet: NPO at this time until nasal bleeding controlled, can take meds/sips and chips DVT prophylaxis: Pt with copious nasal bleed, will defer at this time CODE STATUS: DNR/DNI per discussion with pt and niece in the room Dispo: PCU/Tele History of Present Illness Chief Complaint: Fall Primary Care Provider: Kd Castellon MD Pt is a 73yoM with PMHx significant for hyperlipidemia, prediabetes, chronic systolic heart failure, history of nonischemic cardiomyopathy, Hx of ventricular tachycardia, s/p AICD, history of [place], morbid obesity, history of bladder cancer s/p surgery, chronic kidney disease stage III, former smoker presenting after a fall in a parking lot with facial fractures. Hx obtained from pt and niece in the room. Niece states that pt was supposed to have his cardiology appointment today when he fell on his face in the parking lot. Per pt he was using his cane, and believes he mis-stepped causing his fall. He denies loss of consciousness. Per niece, pt does have some weakness and ambulatory dysfunction at baseline. He states that he fell on his face and was brought to the ED via ambulance. He notes that he has had significant bleeding and denies pain stating that his "pride is hurt more than anything". He is not on a daily blood thinner. At the time of admission, denied SOB or difficulty breathing. Denied vision loss. Denied headache. Denied chest pain. Per [facility] chart review, he was due for this cardiology follow up that he was on his way to having after having missed quite a few appointments due to being hospitalized or being canceled. Has an AICD for which there was some confusion as to whether an "Active advisory" on the AICD had been addressed. Allergies Allergy/AdvReac Type Severity Reaction Status Date / Time yellow dye Allergy Unknown Hives Verified 08/27/23 11:46 Home Medications Medication Instructions Recorded Confirmed Type acetaminophen 500 mg capsule 1,000 mg (2 x 500 mg) PO Q8H PRN 02/11/23 08/27/23 Rx Pain #60 caps atorvastatin 40 mg tablet 40 mg PO HS #30 tabs 02/11/23 08/27/23 Rx magnesium oxide 400 mg PO QAM #60 tabs 02/11/23 08/27/23 Rx tadalafil 5 mg tablet 5 mg PO DAILY@1700 #30 tabs 02/11/23 08/27/23 Rx metoprolol succinate 200 mg 200 mg PO HS 02/19/23 08/27/23 History tablet,extended release 24 hr amiodarone 200 mg tablet 300 mg PO QAM 08/27/23 08/27/23 History cholecalciferol (vitamin D3) 25 25 mcg PO QAM 08/27/23 08/27/23 History mcg (1,000 unit) tablet (Vitamin D3) furosemide 80 mg tablet 80 mg PO BID 08/27/23 08/27/23 History Past Med/Surg History Medical History Abdominal hernia CKD (chronic kidney disease), stage III Bladder cancer Perinephric hematoma THANH (acute kidney injury) Hematuria History of placement of internal cardiac defibrillator Diabetes Obesity Erectile dysfunction Ventricular arrhythmia Surgical History History of cardiac cath Hx of hernia repair Social History Smoking Status: Never smoker Tobacco Type: Cigarettes Second Hand Exposure: No; Do You Dip or Chew Tobacco: No; Hx Alcohol Use: No Hx Substance Use: No Preferred Language: Greek Communication Ability: Effective Tank Hoop Bender Required: No Beliefs That Will Affect Care: None marital status: alone Current Living Situation: Alone current occupational status: retired How many Children do You have: 0 Other Information That Helps Us Care for You: No Feels Safe at Home: Yes Safety Concerns: Feels Safe At This Time Diet: regular during the past year weight has: decreased > 10 lbs Physical Activity Frequency: Does not Exercise Do you think of yourself as: straight/heterosexual Gender Identity: Male Assistive Devices: Cane Review of Systems Review of Systems: All systems reviewed & are unremarkable except as noted in HPI & below Physical Exam Physical Exam: General: Alert, oriented. Sitting in bed with nasal compressive device, bloody Psych: Appropriate mood and affect Neuro: some hearing loss, able to move while laying in bed HEENT: facial erythema and swelling noted with lacerations and abrasions around the nose and under the eyes. Noted clotted blood CV: RRR Resp: Breath sounds clear bilaterally, no increased effort of breathing. Abdomen: Soft, tender in RUQ Extremities: edema in lower extremities bilaterally. Results & Data Results & Data Vital Signs (Past 12 Hours) Vital Signs Pulse Pulse Resp BP Pulse Ox O2 Del Method O2 Flow Rate 08/27/23 12:00 64 23 131/76 98 Oxymask 6 08/27/23 11:30 60 19 94 Oxymask 6 08/27/23 11:20 61 16 100 Non-rebreather 15 08/27/23 10:08 60 08/27/23 10:00 60 21 96 Nebulizer 2 08/27/23 10:00 96 Nebulizer 6 08/27/23 09:48 61 21 154/87 H 92 Nebulizer 6 Diagnostic Findings Cervical Spine CT 08/27/23 09:[address] DOSE: HISTORY: Fall. Head and facial injuries. TECHNIQUE: Multiaxial CT images of the cervical spine were performed and reformatted in the sagittal and coronal plane without the use of contrast. A dose lowering technique was utilized adhering to the principles of ALARA. COMPARISON: None. FINDINGS: No fractures. No subluxation. Prevertebral soft tissues and the C1-C2 interval are intact. No pneumothorax. Left-sided pacemaker wires are partially visualized. There is a multinodular thyroid gland noted. Mild to moderate degenerative changes within the cervical spine. IMPRESSION: No fractures within the cervical spine. ACT 112: Negative or not required by law. Electronically signed by: Jonah Jenkins M.D. 08/27/2023 10:[address] 08/27/23 09:39 CT facial bones wo con CLINICAL HISTORY: fall TECHNIQUE: Multidetector row helical CT of the maxillofacial bones was performed without administration of intravenous contrast, and processed with bone and soft tissue algorithms. Coronal and sagittal reformations were obtained. Automated dose lowering techniques and/or adjustment according to patient size were utilized for this exam. Comparison: None available at the time of this dictation. FINDINGS: Fractures of the bilateral nasal bones noted with associated soft tissue swelling. Prominent periapical abscess is seen about the second left mandibular incisor. The temporomandibular joints are anatomically aligned. Pterygoid plates are intact. There are fractures of the bilateral laminae papyracea. Bilateral hyperdense fluid is noted in the maxillary sinuses. There is a fracture of the inferior orbital wall on the right with herniation of fat. The globes are normal and symmetric, without proptosis, obvious disruption or lens dislocation. There is no orbital radiopaque foreign body. The orbital james are intact. Right retrobulbar fat herniates into the maxillary sinus but the extraocular muscles are unaffected. Extraocular muscles are normal and symmetric. Optic nerve sheath complexes are normal in course and caliber. Imaged portions of the paranasal sinuses and mastoid air cells are clear. IMPRESSION: Fractures of the nasal bones and laminae papyracea bilaterally. There is a fracture of the right inferior orbital wall with herniation of only fat. ACT 112: Negative or not required by law. Electronically signed by: Martínez Caraballo M.D. 08/27/2023 10:[address] 08/27/23 09:39 CT head/brain wo con CLINICAL HISTORY: fall Technique: Contiguous axial CT images of the head were acquired from the base of the skull to the vertex without intravenous contrast administration. Images were viewed in brain, subdural and bone windows. Automated dose lowering techniques and/or adjustment according to patient size were utilized for this exam. Comparison: Comparison is made to CT head 12/29/2023 Findings: The ventricles, basal cisterns, and cerebral sulci are normal. There is no acute intracranial hemorrhage or evidence of acute territorial infarction. Neither mass effect, shift of the midline structures, nor abnormal extra-axial fluid collections are shown. Partial visualization of facial fractures better seen on dedicated CT. The orbits appear normal. There are no acute fractures of the calvaria. Scalp swelling is seen in the midline frontal region. Impression: 1. No acute intracranial hemorrhage or skull fractures. Scalp swelling is seen in the midline frontal region. 2. Please see dedicated CT maxillofacial for findings of facial fractures. ACT 112: Negative or not required by law. Electronically signed by: Martínez Caraballo M.D. 08/27/2023 10:29 AM Chest X-Ray 08/27/23 09:40 SINGLE VIEW CHEST CLINICAL HISTORY: Atypical chest pain. FINDINGS: 2 AP upright chest radiograph*compared to study dated 02/19/2023 and correlated with chest CT dated 02/08/2010. The examination is degraded by portable technique and patient rotation. A 3-lead cardiac AICD is unchanged in position. The heart is enlarged and noting atherosclerotic calcification of the thoracic aorta. There is mild pulmonary vascular congestion. Scarring/atelectasis is seen at the lung bases. No airspace consolidation or large pleural effusion is identified. No pneumothorax is seen. The skeletal structures are osteopenic. The bony thorax is grossly intact. IMPRESSION: Cardiomegaly and AICD with mild pulmonary vascular congestion. ACT 112: Negative or not required by law. Electronically signed by: Michele Miner M.D. 08/27/2023 11:20 AM Pelvis X-Ray 08/27/23 09:43 XR pelvis 1-2V routine CLINICAL HISTORY: fall TECHNIQUE: A single frontal view of the pelvis was obtained. Comparison: Comparison is made to hip radiographs 02/07/2023 FINDINGS: There is no evidence of an acute fracture. Degenerative changes are seen in the hip joints and lumbar spine. No soft tissue abnormality is seen. IMPRESSION: No evidence of acute osseous injury. ACT 112: Negative or not required by law. Electronically signed by: Martínez Caraballo M.D. 08/27/2023 11:10 AM
[2023-08-27] MEDS: ONDANSETRON INJ 2 MG/ML 2 ML VIAL IV SCH (14:21)
--- NOTE | 2023-08-27 15:31 | Electrocardiogram Report ---
Test Reason : Blood Pressure : / mmHG Vent. Rate : 062 BPM Atrial Rate : 062 BPM P-R Int : 158 ms QRS Dur : 170 ms QT Int : 514 ms P-R-T Axes : 091 -89 102 degrees QTc Int : 521 ms AV dual-paced rhythm Abnormal ECG When compared with ECG of 19-FEB-2023 17:25, Vent. rate has increased BY 2 BPM Confirmed by Phill Chaves ([id number]) on 08/27/2023 3:31:25 PM Referred By: REFERRED SELF Confirmed By:Phill Chaves
--- NOTE | 2023-08-27 15:36 | Oral/Maxillofacial Consult ---
Date of Consultation August 27, 2023 Assessment & Plan (1) Acute anterior epistaxis: (2) Fracture closed, nasal bone: (3) Facial bones, closed fracture: (4) Hypoxia: (5) Fall: History of Present Illness Attending Physician: Ivett Murray MD History of Present Illness CC--My nose is fractured from a recent (fall) accident, nose is bleeding My nose is swollen and hurts when I touch it, it is bleeding a lot No other facial symptoms associated with the fall Nose is swollen and bleeding, abrasions on the nose and face Septum--looks to be midline w/o deviation on CT due to clotting not able to do direct nasal exam Mucosal tissue is not swollen Sinus--not able to examine secondary to nasal clotting and bleeding I suctioned the throat no further active bleeding with nasal pressure clip in place ( placed by ER) I discussed with Hospital that Nolan may have clear liquids-can remove the nasal clip in a few hours and if no bleeding can have diet as tolerated. Suggest antibiotics, olivia nose blowing permissible. Afrin nasal spray 2 spray each nostril as needed for mild nasal oozing (as needed) Normal Saline spray 2 spray each nostril every 4 hours to help clear clots from the nose. I reviewed the CT scan --the nasal or the orbital floor fracture are in significant and will not require any surgical intervention. Plan Given that except the pain/bleeding associated from the fall there are no functional deformity that will require surgery treatment. The bleeding looks to be controlled and should not require and nasal packing. The bleeding is all anterior in nature. The fractures are slightly displaced and will not need surgical reduction. Overall I see no function or cosmetic changes due to recent trauma. No treatment needed other then control bleeding with Afrin and Normal saline, olivia nasal blowing. Diet as tolerated. Suggest Ice to nose to help decrease swelling. Pain control as needed. Allergies Allergy/AdvReac Type Severity Reaction Status Date / Time yellow dye Allergy Unknown Hives Verified 08/27/23 11:46 Home Medications Medication Instructions Recorded Confirmed Type acetaminophen 500 mg capsule 1,000 mg (2 x 500 mg) PO Q8H PRN 02/11/23 08/27/23 Rx Pain #60 caps atorvastatin 40 mg tablet 40 mg PO HS #30 tabs 02/11/23 08/27/23 Rx magnesium oxide 400 mg PO QAM #60 tabs 02/11/23 08/27/23 Rx tadalafil 5 mg tablet 5 mg PO DAILY@1700 #30 tabs 02/11/23 08/27/23 Rx metoprolol succinate 200 mg 200 mg PO HS 02/19/23 08/27/23 History tablet,extended release 24 hr amiodarone 200 mg tablet 300 mg PO QAM 08/27/23 08/27/23 History cholecalciferol (vitamin D3) 25 25 mcg PO QAM 08/27/23 08/27/23 History mcg (1,000 unit) tablet (Vitamin D3) furosemide 80 mg tablet 80 mg PO BID 08/27/23 08/27/23 History Patient History Medical History Abdominal hernia CKD (chronic kidney disease), stage III Bladder cancer Perinephric hematoma THANH (acute kidney injury) Hematuria History of placement of internal cardiac defibrillator Diabetes Obesity Erectile dysfunction Ventricular arrhythmia Surgical History History of cardiac cath Hx of hernia repair Social History Smoking Status: Never smoker Tobacco Type: Cigarettes Second Hand Exposure: No; Do You Dip or Chew Tobacco: No; Hx Alcohol Use: No Hx Substance Use: No Preferred Language: Yakut Communication Ability: Effective Fisheries Biologist Required: No Beliefs That Will Affect Care: None marital status: alone Current Living Situation: Alone current occupational status: retired How many Children do You have: 0 Other Information That Helps Us Care for You: No Feels Safe at Home: Yes Safety Concerns: Feels Safe At This Time Diet: regular during the past year weight has: decreased > 10 lbs Physical Activity Frequency: Does not Exercise Do you think of yourself as: straight/heterosexual Gender Identity: Male Assistive Devices: Cane Results & Data Vital Signs (Past 12 Hours) Vital Signs Temp Pulse Pulse Resp BP BP Pulse Ox 08/27/23 15:00 37.9 C H 60 18 132/74 95 08/27/23 14:35 60 18 119/79 95 08/27/23 14:00 60 19 120/65 97 08/27/23 13:00 60 14 114/62 95 08/27/23 12:30 60 20 92 08/27/23 12:00 64 23 131/76 98 08/27/23 11:30 60 19 94 08/27/23 11:20 61 16 100 08/27/23 10:08 60 08/27/23 10:00 60 21 96 08/27/23 10:00 96 08/27/23 09:48 61 21 154/87 H 92 O2 Del Method O2 Flow Rate 08/27/23 15:00 Oxymask 2 08/27/23 14:35 Oxymask 6 08/27/23 14:00 Oxymask 6 08/27/23 13:00 Oxymask 6 08/27/23 12:30 Oxymask 6 08/27/23 12:00 Oxymask 6 08/27/23 11:30 Oxymask 6 08/27/23 11:20 Non-rebreather 15 08/27/23 10:08 08/27/23 10:00 Nebulizer 2 08/27/23 10:00 Nebulizer 6 08/27/23 09:48 Nebulizer 6 PG Care Time/CCT Total # of Minutes Spent Total Time Spent with Patient: Total time spent is greater than 50% in coordination of care (as documented) at patient's floor/unit and/or counseling patient: Coding Level of Care Code 02346 IN/OBS CONSULT LVL 2,35M Diagnoses Acute anterior epistaxis R04.0 Fracture closed, nasal bone S02.2XXA Encounter type: initial encounter Closed fracture of nasal bone, initial encounter S02.2XXA Encounter type: initial encounter Facial bone/location: nasal bone Hypoxia R09.02 Fall W19.XXXA Encounter type: initial encounter (2) Fracture closed, nasal bone Encounter type: initial encounter Qualified Code(s): S02.2XXA - Fracture of nasal bones, initial encounter for closed fracture (3) Facial bones, closed fracture Encounter type: initial encounter Facial bone/location: nasal bone Qualified Code(s): S02.2XXA - Fracture of nasal bones, initial encounter for closed fracture (5) Fall Encounter type: initial encounter Qualified Code(s): W19.XXXA - Unspecified fall, initial encounter
[2023-08-27 16:06] LABS: Appearance Urine Clear (Clear); Bacteria Urine Automated Negative (Negative); Bilirubin Urine Negative (Negative); Blood Urine Negative (Negative); Color Urine Yellow; Epithelial Cell Urine Auto 0-5 /lpf (0-5); Glucose Urine UA Negative (Negative); Ketones Urine Negative (Negative); Leukocyte Esterase Urine Negative (Negative); Nitrite Urine Negative (Negative); Protein Urine Trace (Negative); RBC Urine Automated 0-4 /hpf (0-4); Specific Gravity Urine 1.015 (1.000-1.030); Urobilinogen Urine Negative (Negative); WBC Urine Automated 0 /hpf (0-5); pH Urine 5.5 (4.5-7.5)
[2023-08-27] MEDS: AMPICILLIN/SULBACTAM SOD 3,000 MG in SODIUM CHLOR 0.9% MINI-B 100 ML IV SCH (16:27)
--- NOTE | 2023-08-27 16:33 | Ultrasound Report ---
ULTRASOUND RIGHT UPPER QUADRANT ABDOMEN CLINICAL HISTORY: Elevated hepatic transaminases. COMPARISON STUDY: Abdominal CT dated 02/07/2023 TECHNIQUE: Real-time, grayscale, and color flow sonography of the right upper quadrant of the abdomen was performed. Images are reviewed in the transverse and longitudinal planes. The examination is deg raded by overlying bowel gas. FINDINGS: Liver: The liver is cirrhotic in morphology and heterogeneous in echotexture. There is nodularity of the hepatic surface contour. There is no intrahepatic biliary ductal dilatation. The main portal vein is patent. Gallbladder: There is mild nonspecific gallbladder wall thickening, likely related to adjacent hepato cellular disease. There are shadowing gallstones or bile gallstones. No pericholecystic fluid is iden tified and a sonographic Curtis's sign is reportedly absent. The common bile duct measures up to 0.5 cm in diameter. Pancreas: Not visualized due to overlying bowel gas. Right kidney: Survey images of the right kidney demonstrate normal size and echotexture. There is no hydronephrosis. Ascites: None. IMPRESSION: 1. The liver is cirrhotic in morphology and heterogeneous in echotexture. 2. Cholelithiasis without sonographic evidence of acute cholecystitis. 3. Mild gallbladder wall thickening is nonspecific and likely related to adjacent hepatocellular dise ase. 4. Nonvisualization of the pancreas. ACT 112: Negative or not required by law. Electronically signed by: Michele Miner M.D. 08/27/2023 4:32 PM
[2023-08-27 16:40] LABS: Lyme Ab IgG w/WB Rflx Negative (Negative); Lyme Ab IgM w/WB Rflx Negative (Negative)
[2023-08-27 17:29] LABS: Hematocrit (blood only) 41.4 % (42.0-52.0); Hemoglobin 12.9 g/dl (14.0-18.0)
[2023-08-27] MEDS: FUROSEMIDE 80 MG TAB PO SCH (18:43)
[2023-08-27] MEDS: SODIUM CHLORIDE 0.65% NA SOLN 45 ML (OCEAN) SCH (18:43)
--- NOTE | 2023-08-27 19:28 | Cardiology Consultation ---
Date of Consultation August 27, 2023 Assessment & Plan (1) Facial bones, closed fracture: (2) Fracture closed, nasal bone: (3) Fall: (4) Status post implantation of automatic cardioverter/defibrillator (AICD): Plan Patient with history of dual-chamber [employer] AICD. He presented today with what would appear to be a mechanical fall on the loss of postural tone not excluded. His AICD was interrogated with the assistance of the [employer] outside dealer sales representative with normal function and no culprit arrhythmias. He had received a letter from [employer] with a active device advisory. The recommended solution for this is a change in the factors of his AICD therapies, and this programming change was completed by the [employer] outside dealer sales representative and the recommended fashion today so that he does not have to go to the office to have it completed in the near future. Continue prior to hospital cardiac medications. Given treatment with ampicillin he may require IV diuretics to keep his intake and output even or perhaps a little bit negative. Recommend transitioning to oral antibiotics as soon as possible in an effort to reduce IV fluid intake. History of Present Illness Attending Physician: Ivett Murray MD History of Present Illness Mr Cantor is seen in cardiology consultation per the request of Dr Murray for the evaluation of fall, with history of AICD. Patient is somewhat of a poor historian. His niece is at the bedside. He describes walking across the street with his cane and falling. He does not describe symptoms to suggest loss of postural tone however as noted his description is vague. Facial CT reveals fractures of the nasal bones and a fracture of the right inferior orbital wall. He has a mild area of ecchymosis of his left upper chest over his AICD pocket. Cardiology problem list 1. Nonischemic cardiomyopathy diagnosed 2009 2. Chronic systolic heart failure 3. Morbid obesity 4. Prior sustained ventricular tachycardia on chronic amiodarone therapy 5. Status post biventricular pacemaker insertion 12/30/2019 6. Obstructive sleep apnea 7. Bladder carcinoma status post resection prior hematuria Echocardiogram performed 02/08/2023 revealed moderate concentric left ventricular hypertrophy, mild global hypokinesis of the left ventricle with apical wall motion abnormality likely reflective of RV pacemaker activation, LVEF in the range of 40 to 45%, moderate aortic valve sclerosis without stenosis, mild to moderate mitral regurgitation. Allergies Allergy/AdvReac Type Severity Reaction Status Date / Time yellow dye Allergy Unknown Hives Verified 08/27/23 11:46 Home Medications Medication Instructions Recorded Confirmed Type acetaminophen 500 mg capsule 1,000 mg (2 x 500 mg) PO Q8H PRN 02/11/23 08/27/23 Rx Pain #60 caps atorvastatin 40 mg tablet 40 mg PO HS #30 tabs 02/11/23 08/27/23 Rx magnesium oxide 400 mg PO QAM #60 tabs 02/11/23 08/27/23 Rx tadalafil 5 mg tablet 5 mg PO DAILY@1700 #30 tabs 02/11/23 08/27/23 Rx metoprolol succinate 200 mg 200 mg PO HS 02/19/23 08/27/23 History tablet,extended release 24 hr amiodarone 200 mg tablet 300 mg PO QAM 08/27/23 08/27/23 History cholecalciferol (vitamin D3) 25 25 mcg PO QAM 08/27/23 08/27/23 History mcg (1,000 unit) tablet (Vitamin D3) furosemide 80 mg tablet 80 mg PO BID 08/27/23 08/27/23 History Patient History Medical History Abdominal hernia CKD (chronic kidney disease), stage III Bladder cancer Perinephric hematoma THANH (acute kidney injury) Hematuria History of placement of internal cardiac defibrillator Diabetes Obesity Erectile dysfunction Ventricular arrhythmia Surgical History History of cardiac cath Hx of hernia repair Social History Smoking Status: Never smoker Tobacco Type: Cigarettes Second Hand Exposure: No; Do You Dip or Chew Tobacco: No; Hx Alcohol Use: No Hx Substance Use: No Preferred Language: Anguill[place] Communication Ability: Effective Non Destructive Tester Required: No Beliefs That Will Affect Care: None marital status: alone Current Living Situation: Alone current occupational status: retired How many Children do You have: 0 Other Information That Helps Us Care for You: No Feels Safe at Home: Yes Safety Concerns: Feels Safe At This Time Diet: regular during the past year weight has: decreased > 10 lbs Physical Activity Frequency: Does not Exercise Do you think of yourself as: straight/heterosexual Gender Identity: Male Assistive Devices: Cane Review of Systems Review of Systems: All systems reviewed & are unremarkable except as noted in HPI & below Physical Exam Constitutional: + obese ENMT: Nose: + facial edema (Erythema over the forehead, nose and eye) Respiratory: normal respiratory effort, lungs clear to auscultation Cardiovascular: RRR, no murmur, no edema Chest (Breasts): Chest: + pacemaker (Mild ecchymosis over the left chest) Gastrointestinal (Abdomen): normal bowel sounds, soft, nontender, no hepatosplenomegaly Neurologic: PERRL, EOMI, accommodation nl, no face palsy, no dysarthria Results & Data Vital Signs (Past 12 Hours) Vital Signs Temp Pulse Pulse Resp BP BP Pulse Ox 08/27/23 15:57 08/27/23 15:00 37.9 C H 60 18 132/74 95 08/27/23 14:35 60 18 119/79 95 08/27/23 14:00 60 19 120/65 97 08/27/23 13:00 60 14 114/62 95 08/27/23 12:30 60 20 92 08/27/23 12:00 64 23 131/76 98 08/27/23 11:30 60 19 94 08/27/23 11:20 61 16 100 08/27/23 10:08 60 08/27/23 10:00 60 21 96 08/27/23 10:00 96 08/27/23 09:48 61 21 154/87 H 92 O2 Del Method O2 Flow Rate 08/27/23 15:57 Oxymask 2 08/27/23 15:00 Oxymask 2 08/27/23 14:35 Oxymask 6 08/27/23 14:00 Oxymask 6 08/27/23 13:00 Oxymask 6 08/27/23 12:30 Oxymask 6 08/27/23 12:00 Oxymask 6 08/27/23 11:30 Oxymask 6 08/27/23 11:20 Non-rebreather 15 08/27/23 10:08 08/27/23 10:00 Nebulizer 2 08/27/23 10:00 Nebulizer 6 08/27/23 09:48 Nebulizer 6 Laboratory Results Cardiac Enzymes 08/27/23 08/27/23 08/27/23 Range/Units 09:55 11:56 16:28 AST 141 H (13-39) U/L Troponin I High Sens 25.0 H 49.3 H D 66.7 H* D (0-20) pg/ml Coagulation 08/27/23 Range/Units 09:55 PT 12.3 H (9.0-12.0) Seconds APTT 31 (21-31) Seconds CBC 08/27/23 08/27/23 Range/Units 09:55 16:28 WBC 4.74 L (4.8-10.8) K/ul RBC 4.43 L (4.70-6.10) M/uL Hgb 13.9 L 12.9 L (14.0-18.0) g/dl Hct 42.2 41.4 L (42.0-52.0) % Plt Count 119 L (130-400) K/uL Neut # (Auto) 3.35 (1.40-6.50) K/uL Lymph # (Auto) 0.50 L (1.20-3.40) K/uL [place] # (Auto) 0.83 H (0.11-0.59) K/uL Eos # (Auto) 0.00 (0.00-0.50) K/uL Baso # (Auto) 0.01 (0.00-0.20) K/uL Comprehensive Metabolic Panel 08/27/23 Range/Units 09:55 Sodium 135 L (136-145) mmol/L Potassium 4.2 (3.5-5.1) mmol/L Chloride 93 L (98-107) mmol/L Carbon Dioxide 33 H (21-32) mmol/L BUN 39 H (6-23) mg/dl Creatinine 2.22 H (0.6-1.4) mg/dl Glucose 111 H (70-99(Fasting)) mg/dl Calcium 8.3 L (8.6-10.3) mg/dl AST 141 H (13-39) U/L ALT 108 H (7-52) U/L Alkaline Phosphatase 79 (34-104) U/L Total Protein 6.9 (6.0-8.3) gm/dl Albumin 3.8 (3.4-5.0) gm/dl Diagnostic Findings EKG performed today reveals AV sequential paced rhythm at 60 bpm. Telemetry reveals paced rhythm in the 60s. (1) Facial bones, closed fracture Encounter type: initial encounter Facial bone/location: nasal bone Qualified Code(s): S02.2XXA - Fracture of nasal bones, initial encounter for closed fracture (2) Fracture closed, nasal bone Encounter type: initial encounter Qualified Code(s): S02.2XXA - Fracture of nasal bones, initial encounter for closed fracture (3) Fall Encounter type: initial encounter Qualified Code(s): W19.XXXA - Unspecified fall, initial encounter
[2023-08-27] MEDS: ACETAMINOPHEN 1,000 MG/100 ML VIAL IV PRN (20:10)
[2023-08-27] MEDS: METOPROLOL SUCC 50MG EXT REL TAB PO SCH (20:10)
--- OUTSIDE RECORDS SUMMARY | 2023-08-27 22:00 | External Medical Summary | Summary of Care ---
Author Name Unknown Organization [facility] Address [address] [place] [address] Phone [phone] Care Team Providers Care Professional Tutor Name Role Phone Kd Castellon MD Primary Care Provider Reason for Visit * Reason Onset Date Comments Advice 08/14/2023 Appointment 08/14/2023 Encounter Details Date Type Department Care Team (Late st Contact Info) Description 08/14/2023 Telephone Cardiology [facility] [address], [place] [phone] Sandra Armstrong IV, MD [address], [place] [phone] Advice; Appointment Allergies Active Allergy Reactions Criticality Noted Date Comments Other - Foods Hives 02/08/2010 Mellow Yellow soda documented as of this encounter (statuses as of 08/19/2023) Medications Medication Sig Dispensed Refills Start Date End Date Status MAG-OXIDE 400 MG PO TABSIndications:Idiopa thic cardiomyopathy (HCC),Sleep apnea 1 TABLETS DAILY 34 Tab 11 03/08/2011 Active Tylenol 325 MG Oral Capsule (Acetaminophen) Take by mouth. 0 Activ e Amiodarone HCl 200 MG Oral Tablet (Cordarone)Indications :Ventricular arrhythmia Take by mouth 1.5 Tablets in the morning. 180 Tablet 3 05/28/2022 Active Tadalafil 5 MG Oral Tablet (Cialis) Take 1 Tablet by mouth daily as needed for Erectile Dysfunction. 90 Tablet 3 10/28/2022 Active Furosemide 80 MG Oral Tablet (Lasix) Take 1 Tablet by mouth in the morning and 1 Tablet before bedtime. 180 Tablet 3 03/25/2023 Active Atorvastatin Calcium 40 MG Oral Tablet (Lipitor)Indications:P rediabetes,Dyslipidemi a, goal LDL below 70,Non-ischemic cardiomyopathy (HCC) TAKE ONE TABLET BY MOUTH AT BEDTIME 90 Tablet 1 04/09/2023 Active Vitamin D3 25 MCG (1000 UT) Oral Tablet (Vitamin D3)Indications:Vitamin D deficiency Take 1 Tablet by mouth in the morning. 90 Tablet 1 06/12/2023 Active Metoprolol Succinate ER 200 MG Oral Tablet Extended Release 24 Hour TAKE ONE TABLET BY MOUTH AT BEDTIME 90 Tablet 1 07/07/2023 Active documented as of this encounter (statuses as of 08/19/2023) Active Problems Problem Noted Date Diagnosed Date 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 Overview: Non-invasive papillary urothelial carcinoma, [place], old 11/04/2021 Overview: January 2013 Chronic kidney disease, stage 3b 10/07/2021 Overview: Per CKD protocol Body mass index (BMI) of 45.0 to 49.9 in adult 0 02/04/2021 Overview: Per Obesity protocol Prediabetes 05/07/2020 Overview: Per Prediabetes protocol Dyslipidemia, goal LDL below 70 01/13/2020 AICD (automatic cardioverter/defibrillator) pres ent 01/13/2020 Chronic systolic heart failure 04/26/2019 Tobacco use disorder 04/26/2019 Overview: snuff RVOT ventricular tachycardia 01/23/2013 Non-ischemic cardiomyopathy 02/09/2010 documented as of this encounter (statuses as of 08/19/2023) Resolved Problems Problem Noted Date Diagnosed Date Resolved Date Morbid obesity with BMI of 50.0-59.9, adult 12/31/2020 02/07/2021 Overview: Per Obesity protocol Stage 3a chronic kidney disease 06/04/2020 10/09/2021 Overview: Per CKD protocol Body mass index (BMI) of 50. 0 to 59.9 in adult 06/04/2020 01/10/2021 Overview: Per Obesity protocol - Per Obesity protocol - Ventricular tachycardia, sustained 01/02/2020 01/05/2020 Nocturnal hypoxia 01/02/2020 01/13/2020 Body mass index (BMI) of 45. 0 to 49.9 in adult 05/09/2019 06/07/2020 Overview: Per Obesity protocol - Body mass index (BMI) of 40. 0 to 44.9 in adult 04/27/2017 05/11/2019 Overview: Per Obesity protocol #1 Kidney disease, chronic, sta ge III (GFR 30-59 ml/min) 12/01/2016 06/07/2020 Overview: Per CKD protocol #1 Sustained VT (ventricular tachycardia) 01/23/2013 04/26/2019 Frequent PVCs 01/23/2013 05/02/2020 Ventricular arrhythmia 11/11/201104/26 Overview: Non sustained VT Unilateral inguinal hernia 11/28/2010 0 04/19/2019 Sleep apnea 02/10/2010 03/04/2013 Acute myocardial infarction, initial episode of care 02/08/2010 02/08/2010 Overview: ICD-10 update of inactive term Acute coronary syndrome 02/08/201001/24 Morbid obesity, BMI not known 02/08/2010 04/30/2017 Overview: Per Obesity protocol #1 documented as of this encounter (statuses as of 08/19/2023) Immunizations Name Administration Dates Next Due COVID-19 mRNA, LNP-s, No Pre serve, 2-Dose Series (Moderna) 11/10/2020,10/13/2020 COVID-19, mRNA, LNP-s, PF, B ooster, 100mcg/0.5mg (Moderna) 08/09/2021 Covid-19, Mrna, Lnp-s, Pf, B ivalent, 50 Mcg, IM, 12 yrs and above (Moderna) 05/19/2022 Pneumococcal Conjugate Vacc, 13 Valent (Prevnar) 02/09/2010 Pneumococcal Polysaccharide PPV23 (Pneumovax) TDAP (age 11 and older)(Adacel) 05/17/2009 documented as of this encounter Social History Tobacco Use Types Packs/Day Years Used Date Smoking Tobacco: Former Cigarettes 1 10 Q uit: 07/27/1995 Smokeless Tobacco: Current Snuff Comments:Quit smoking 20 yea rs ago. Can of snuff lasts one day Alcohol Use Standard Drinks/Week Comments Not Currently 0 (1 standard drink = 0.6 oz pur e alcohol) Quit PHQ-2 Answer Date Recorded PHQ-2 Score -1 05/02/2020 Hunger Vital Sign Answer Date Recorded Within the past 12 months, y ou worried that your food would run out before you got the money to buy more. Never true 08/10/19 24 Within the past 12 months, t he food you bought just didn't last and you didn't have money to get more. Never true 2023 Sex and Gender Information Value Date Recorded Sex Assigned at Not on file Gender Identity Not on file Sexual Orientation Not on file Job Start Date Occupation Industry Not on file Not on file Not on file documented as of this encounter Functional Status Functional Status Response Date of Assess ment Are you deaf or do you have serious difficulty h earing? No 01/02/2020 Are you blind or do you have serious difficulty seeing, even when wearing glasses? No 01/02/2020 Do you have serious difficul ty walking or climbing stairs? (5 years old or older) No 01/02/2020 Do you have difficulty dress ing or bathing? (5 years old or older) No 01/02/2020 Because of a physical, menta l, or emotional condition, do you have difficulty doing errands alone such as visiting a doctor s office or shopping? (15 years old or older) No 01/02/20 Cognitive Status Response Date of Assessm ent Because of a physical, menta l, or emotional condition, do you have serious difficulty concentrating, remembering, or making decisions? (5 years old or older) No 01/02/2020 documented as of this encounter Miscellaneous Notes * Telephone Encounter - Lula Mckeon LPN - 08/19/2023 10:23 AM EST Call placed to patient who states that this was taken care of at last appointment. Remote transmission scheduled for 08/26/2023 to confirm. * Telephone Encounter - Nishi Forte OSA - 08/14/2023 11:18 AM EST Person calling: Patient Relationship to patient: Self Number to return call: [phone] Reason for call: Patient calling regarding the letter he received dated 08/05/23 regarding an activeadvisory on his ICD. Patient states that he was seen on 07/01/[address] Armstrong and believes this wascompleted during that appt. Inquiring if he was erroneously sent the letter or if he does need to schedule this. If needed, would like to have appt on 08/20/23 in [place] office. Please call to advise either way. Pharmacy: n/a Provider Name: Dr. Armstrong IV documented in this encounter Plan of Treatment Upcoming Encounters Date Type Department Care Team (Late st Contact Info) Description 08/27/2023 10:00 AM EST Office Visit Cardiology [address] [place] [phone] Deshaun Wolf PADariC [address] [place] [address] 09/15/2023 10:30 AM EST Procedure Only Urology, [facility] [address] [place] [address] Yasmany Campbell MD 27 [facility] [address] [place] [address] 11/11/2023 9:20 AM EDT Office Visit Family Medicine [address] [place] Edward Pan MD [address] [place] [address] [place] [phone] 04/25/2024 2:40 PM EDT Office Visit Nephrology [address] [place] [address] Michelle Sorenson MD [address] [facility] [place] [address] 06/29/2024 12:30 PM EST Office Visit Cardiology, [facility] [address] [place] [address] Sandra Armstrong IV, MD [address], [place] [phone] Health Maintenance Due Date Last Done Comments Cologuard 1996 Colonoscopy 1996 Sigmoidoscopy 1996 Zoster Vaccines (1 of 2) 2001 Colorectal Cancer Screening 03/01/2011 Fecal Occult Blood Test 03/01/2011 03/01/2010 Hepatitis B (1 of 3 - Risk 3-dose series) 2011 AAA Screening 2016 Pneumococcal Vaccine: 65+ Years (3 - PPSV23 or PCV20) 2016 02/09/2010, 02/09/2010 DTaP,Tdap,and Td Vaccines (2 - Td or Tdap) 05/17/2019 05/17/2009 Depression Screening 05/02/2021 05/02/2020 COVID-19 Vaccine ( - 2022- season) 2023 05/19/2022, 08/09/2021, 11/10/2020, Additional history exists Influenza Vaccine (FLU shot) (#1) 2023 Albumin/Creatinine Ratio 11/07/2023 11/06/2022, 11/25 GFR 12/10/2023 06/11/2023, 03/28, 03/25/2023, Additional history exists CKD HGB USE SMARTSET 50943 05/12/202405/12, 07/25/2022, 07/25/2022, Additional history exists HbA1c 05/12/2024 05/12/2023, 01/25, 10/31/2020, Additional history exists CKD PHOS USE SMARTSET 52773 06/11/202405/27, 11/06/2022, 09/30/2021, Additional history exists Lipid Panel 07/25/2027 07/25/2022, 0601/2021, 01/03/2020, Additional history exists GARDASIL-HPV IMMUNIZATION SERIES Aged Out No longer eligible based on patient's age to complete this topic MENINGOCOCCAL (MENACTRA/MENVEO) Aged Out No longer eligible based on patient's age to complete this topic documented as of this encounter Medical Devices Not on filedocumented as of this encounter Advance Directives Documents on File Type Date Recorded 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 Question Answer Comments Discussion of Advance Directives occurred with: Patient Code Status History Code Status Date Activated Date Inactivated Comments Full Code 03/12/2022 7:15 AM 03/12/2022 9:15 AM This order reflects the patients wishes and were consensually agreed upon. Question Answer Comments Discussion of Advance Directives occurred with: Patient Full Code 01/02/2020 5:39 PM 01/05/2020 6:51 PM This o rder reflects the patients wishes and were consensually agreed upon. Question Answer Comments Discussion of Advance Directives occurred with: Patient Full Code 02/08/2010 2:38 PM 02/11/2010 12:55 AM This order reflects the patients wishes and were consensually agreed upon. Question Answer Comments Discussion of Advance Directives occurred with: Patient Does the patient have a Living Will? No Does the patient have Health Care Power of Business Support Professional? No Care Teams Professional Tutor Relationship Specialty Start Date End Date Kd Castellon MD [address] [place] [address] [place] [id number] PCP - General Family Medicine 05/03/21 documented as of this encounter
--- OUTSIDE RECORDS SUMMARY | 2023-08-27 22:00 | External Medical Summary | Summary of Care ---
Author Name Unknown Organization [facility] Address [address] [place] [address] Phone [phone] Care Team Providers Care Manager Local Name Role Phone Kd Castellon MD Primary Care Provider Reason for Visit * Reason Comments Outpatient Testing Encounter Details Date Type Department Care Team (Late st Contact Info) Description 08/19/2023 9:40 AM EST [facility] [address] [facility] [address] [facility] 132 [place] [address] Malignant neoplasm of anterior wall of urinary bladder (HCC); Hematoma of left kidney, subsequent encounter; Flank pain Allergies Active Allergy Reactions Criticality Noted Date [...] bladder 03/12/2022 Overview: Non-invasive papillary urothelial carcinoma, [place], old 11/04/2021 Overview: January 2013 Chronic kidney [...] No 01/02/2020 documented as of this encounter Plan of Treatment Upcoming Encounters Date Type Department Care Team (Latest Contact Info) Description 08/19/2023 10:15 AM EST Imaging Radiology [facility] 132 [facility] [place] [address] Malignant neoplasm of anterior wall of urinary bladder (HCC); Hematoma of left kidney, subsequent encounter; Flank pain 08/27/2023 10:00 AM EST Office Visit Cardiology [address] [place] [address] Deshaun Wolf PA-C 132 [facility] [place] [address] 09/15/2023 10:30 AM EST Procedure Only Urology, [facility] 132 [facility] [place] [address] Yasmany Campbell MD [address] [place] [address] [place] [address] 11/11/2023 9:20 AM EDT Office Visit Family Medicine [address] [place] [phone] Edward Pan MD [address] [place] [address] [place] [address] 04/25/2024 2:40 PM EDT Office Visit Nephrology [address] [place] [address] Michelle Sorenson MD 200 [place] [address] 06/29/2024 12:30 PM EST Office Visit Cardiology, [facility] 132 [facility] [place] [address] Sandra Armstrong IV, MD [address] [place] [address] Pending Results Name Type Priority Associated Diagnoses Date /Time BASIC METABOLIC PANEL Lab Routine Malignant neoplasm of anterior wall of urinary bladder (HCC) Hematoma of left kidney, subsequent encounter Flank pain 08/19/2023 9:33 AM EST Health Maintenance Due Date Last Done Comments [...] Depression Screening 05/02/2021 05/02/2020 COVID-19 Vaccine ( season) 2023 05/19/2022, 08/09/2021, 11/10/2020, Additional history exists Influenza Vaccine (FLU shot) (#1) 2023 Albumin/Creatinine Ratio 11/07/2023 11/06/2022, 11/25 GFR 12/10/2023 06/11/2023, 03/28, 03/25/2023, Additional history exists CKD HGB USE SMARTSET 31149 05/12/202405/12, 07/25/2022, 07/25/2022, Additional history exists HbA1c 05/12/2024 05/12/2023, 01/25, 10/31/2020, Additional history exists CKD PHOS USE SMARTSET 22191 06/11/202405/27, 11/06/2022, 09/30/2021, Additional history exists Lipid Panel 07/25/2027 07/25/2022, 06/01/2021, 01/03/2020, Additional history exists GARDASIL-HPV IMMUNIZATION SERIES Aged Out No longer eligible based on patient's age to complete this topic MENINGOCOCCAL (MENACTRA/MENVEO) Aged Out No longer eligible based on patient's age to complete this topic documented as of this encounter Medical Devices Not on filedocumented as of this encounter Visit Diagnoses Diagnosis Malignant neoplasm of anterior wall of urinary bladder (HCC) Malignant neoplasm of anterior wall of urinary bladder Hematoma of left kidney, subsequent encounter Flank pain Abdominal pain, unspecified site Malignant neoplasm of anterior wall of urinary bladder (HCC) Malignant neoplasm of anterior wall of urinary bladder Hematoma of left kidney, subsequent encounter Flank pain Abdominal pain, unspecified site documented in this encounter Advance Directives Documents on File Type Date 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 No Care Teams Manager Local Relationship Specialty Start Date End Date Kd Castellon MD [address] [place] [address] [place] [phone] PCP - General Family Medicine 05/03/21 documented as of this encounter
--- OUTSIDE RECORDS SUMMARY | 2023-08-27 22:00 | External Medical Summary ---
Author Name Unknown Address Unknown Organization [facility] [address] [place] [address] Laboratory Report Ordering Provider Test Date Status DICKSON LINK IV 08/19/2023 09:33:01 Final Observation Date Value Abnormality Reference (Units ) Status AST (Aspartate aminotransferase) 08/19/2023 09:33:01 18 10-50 (U/L) Final Performing Location [facility] [place] [address]
--- OUTSIDE RECORDS SUMMARY | 2023-08-27 22:00 | External Medical Summary ---
Author Name Unknown Address Unknown Organization [id number][facility] [facility] [address] [place] [address] Laboratory Report Ordering Provider Test Date Status CUBA ÁLVAREZ 08/19/2023 09:33:01 Final Observation Date Value Abnormality Reference (Units ) Status BUN 08/19/2023 09:33:01 37 Above high normal 6-20 (mg/dL) Final Creatinine 08/19/2023 09:33:01 2.2 Above high normal 0.6-1.2 (mg/dL) Final Glomerular filtration rate/1.73 sq M.predicted [Volume Rate/Area] in Serum, Plasma or Blood by Creatinine-based formula (CKD-EPI) 08/19/2023 09:33:01 32 Below low normal >=60 (mL/min) Final eGFR is calculated based on the CKD-EPI 2020 equation SODIUM 08/19/2023 09:33:01 143 135-146 (m mol/L) Final Potassium 08/19/2023 09:33:01 4.9 3.5-5.1 (m mol/L) Final Cl 08/19/2023 09:33:01 96 Below low normal 98- 107 (mmol/L) Final CO2 08/19/2023 09:33:01 37 Above high normal 22 -32 (mmol/L) Final Anion gap 08/19/2023 09:33:01 10 7-15 (mmol /L) Final Glucose 08/19/2023 09:33:01 92 70-120 (mg /dL) Final Calcium 08/19/2023 09:33:01 9.2 8.4-10.2 ( mg/dL) Final Performing Location LAB[facility]ATORY [facility] [address] [place] [address]
--- OUTSIDE RECORDS SUMMARY | 2023-08-27 22:00 | External Medical Summary ---
Author Name Unknown Address Unknown Organization K01:LABORATORY C - [address] [place] [address] Laboratory Report Ordering Provider Test Date Status DICKSON LINK IV 08/19/2023 09:33:01 Final Observation Date Value Abnormality Reference (Units ) Status TSH 08/19/2023 09:33:01 0.62 0.27-4.20 (uIU/mL) Final Performing Location [facility] - [address] [place] [address]
--- OUTSIDE RECORDS SUMMARY | 2023-08-27 22:00 | External Medical Summary ---
Author Name Unknown Address Unknown Organization [id number] [address] - [address] [place] [address] Laboratory Report Ordering Provider Test Date Status DICKSON LINK IV 08/19/2023 09:33:01 Final Observation Date Value Abnormality Reference (Units ) Status ALT (Alanine aminotransferase) 08/19/2023 09:33:01 15 10-50 (U/L) Final Performing Location [facility] [place] [id number]
--- OUTSIDE RECORDS SUMMARY | 2023-08-27 22:00 | External Medical Summary | Summary of Care ---
Author Name Unknown Organization [facility] Address [address] [facility] [place] [address] Phone [phone] Care Team Providers Care Mobile Phlebotomist Name Role Phone Kd Castellon MD Primary Care Provider Encounter Details Date Type Department Care Team (Late st Contact Info) Description 08/12/2023 Orders Only PATIENT PORTAL DO NOT DELETE THIS DEPT USED BY [place] [id number] Allergies Active Allergy Reactions Criticality Noted Date Comments Other - Foods Hives 02/08/2010 Mellow Yellow soda documented as of this encounter (statuses as of 08/12/2023) Medications Medication Sig Dispensed Refills Start Date [...] as of this encounter (statuses as of 08/12/2023) Active Problems Problem Noted Date Diagnosed Date 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 Overview: Non-invasive papillary urothelial carcinoma, [place], old 11/04/2021 Overview: January 2013 Chronic kidney [...] as of this encounter (statuses as of 08/12/2023) Resolved Problems Problem Noted Date Diagnosed Date [...] as of this encounter (statuses as of 08/12/2023) Immunizations Name Administration Dates Next Due COVID-19 [...] (15 years old or older) No 01/02/20 20 Cognitive Status Response Date of Assessm ent Because of a physical, menta l, or emotional condition, do you have serious difficulty concentrating, remembering, or making decisions? (5 years old or older) No 01/02/2020 documented as of this encounter Plan of Treatment Upcoming Encounters Date Type Department Care Team (Late st Contact Info) Description 08/14/2023 11:45 AM EST Imaging Radiology [address] [address] 08/27/2023 10:00 AM EST Office Visit Cardiology [place] [place] [address] Deshaun Wolf PA-C [address] [place] [address] 09/15/2023 10:30 AM EST Procedure Only Urology, [facility] [address] [place] [address] Yasmany Campbell MD [address] [place] [address] 11/11/2023 9:20 AM EDT Office Visit Family Medicine [address] [place] [phone] Edward Pan MD [address] [place] [address] [place] [address] 04/25/2024 2:40 PM EDT Office Visit Nephrology [address] [place] [address] Michelle Sorenson MD [address] [place] [address] 06/29/2024 12:30 PM EST Office Visit Cardiology, [facility] [address] [facility] [place] [address] Sandra Armstrong IV, MD [address] [place], [place] [id number] Health Maintenance Due Date Last Done Comments [...] Additional history exists CKD HGB USE SMARTSET 19124 05/12/202405/12, 07/25/2022, 07/25/2022, Additional history exists HbA1c 05/12/2024 05/12/2023, 01/25, 10/31/2020, Additional history exists CKD PHOS USE SMARTSET 93065 06/11/202405/27, 11/06/2022, 09/30/2021, Additional history exists Lipid Panel 07/25/2027 07/25/2022, 06/0 01/2021, 01/03/2020, Additional history exists GARDASIL-HPV IMMUNIZATION SERIES Aged Out No longer eligible based on patient's age to complete this topic MENINGOCOCCAL (MENACTRA/MENVEO) Aged Out No longer eligible based on patient's age to complete this topic documented as of this encounter Medical Devices Not on filedocumented as of this encounter Advance Directives Documents on File Type Date Recorded Patient General Worker Expl anation Advance Directives and Living Will 02/26/2023 ADVANCE DIRECTIVE / LIVING WILL Power of Production Ski Repairer 02/26/2023 POWER OF A TTORNEY Latest Code [...] the patient have Health Care Power of Production Ski Repairer? No Care Teams Mobile Phlebotomist Relationship Specialty Start Date End Date Kd Castellon MD [address] [place] [address] [place] [address] PCP - General Family Medicine 05/03/21 documented as of this encounter
--- OUTSIDE RECORDS SUMMARY | 2023-08-27 22:01 | External Medical Summary | Summary of Care ---
Author Name Unknown Organization [facility] Address [address] [place] [address] Phone [phone] Care Team Providers Care Roving Frame Tender Name Role Phone Kd Castellon MD Primary Care Provider Reason for Visit * Reason Comments Follow Up Encounter Details Date Type Department Care Team (Latest Contact Info) Description 07/01/2023 12:30 PM EST Office Visit Cardiology, [facility] [address] [place] [address] Sandra Armstrong IV, MD [address] [place] [address] Chronic systolic congestive heart failure, NYHA class 1 (HCC)*; Sustained VT (ventricular tachycardia) (HCC); RVOT ventricular tachycardia (HCC); Class 3 severe obesity due to excess calories without serious comorbidity with body mass index (BMI) of 45.0 to 49.9 in adult (HCC); Nonischemic cardiomyopathy (HCC); AICD (automatic cardioverter/defibrilla tor) present Allergies Active Allergy Reactions Criticality Noted Date Comments Other - Foods Hives 02/08/2010 Mellow Yellow soda documented as of this encounter (statuses as of 07/01/2023) Medications Medication Sig Dispensed Refills Start Date End Date Status MAG-OXIDE 400 MG PO TABSIndications:Idiopa thic cardiomyopathy (HCC),Sleep apnea 1 TABLETS DAILY 34 Tab 11 03/08/2011 Active Tylenol 325 MG Oral Capsule (Acetaminophen) Take by mouth. 0 Activ e Amiodarone HCl 200 MG Oral Tablet (Cordarone)Indications :Ventricular arrhythmia Take by mouth 1.5 Tablets in the morning. 180 Tablet 3 05/28/2022 Active Metoprolol Succinate ER 200 MG Oral Tablet Extended Release 24 Hour Take 1 Tablet (200 mg) by mouth at bedtime. 90 Tablet 3 06/17/2022 Active Tadalafil 5 MG Oral Tablet (Cialis) [...] the morning. 90 Tablet 1 06/12/2023 Active documented as of this encounter (statuses as of 07/01/2023) Active Problems Problem Noted Date Diagnosed Date 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 Overview: Non-invasive papillary urothelial carcinoma, [place], old 11/04/2021 Overview: January 2013 Chronic kidney [...] as of this encounter (statuses as of 07/01/2023) Resolved Problems Problem Noted Date Diagnosed Date [...] as of this encounter (statuses as of 07/01/2023) Immunizations Name Administration Dates Next Due COVID-19 [...] 05/02/2020 Hunger Vital Sign Answer Date Recorded Worried About Running Out of Food in the Last Ye ar Never true 04/26/2019 Ran Out of Food in the Last Year Never true 04/26/2019 Sex and Gender Information Value Date Recorded Sex Assigned at Not on file Gender Identity Not on file Sexual Orientation Not on file Job Start Date Occupation Industry Not on file Not on file Not on file documented as of this encounter Last Filed Vital Signs Vital Sign Reading Time Taken Comments Blood Pressure 110/66 07/01/2023 12:20 PM EST Pulse 80 07/01/2023 12:20 PM EST Temperature - - Respiratory Rate 20 07/01/2023 12:20 PM EST Oxygen Saturation - - Inhaled Oxygen Concentration - - Weight 154.7 kg (341 lb) 07/01/2023 12:20 PM EST Height - - Body Mass Index 46.9 11/06/2022 10:43 AM EDT documented in this encounter Functional Status Functional Status Response [...] No 01/02/2020 documented as of this encounter Progress Notes * Sandra Armstrong IV, MD - 07/01/2023 12:32 PM EST CARDIOLOGY OUTPATIENT CLINIC NOTE PCP: REYNALDO BERRY [address] [place] [address] [place] [address] [phone] History of Present Illness: Mr. Cantor has a history of a nonischemic cardiomyopathy and ventriculartachycardia. The nonischemic cardiomyopathy was diagnosed in 2009 when he was found to have a left ventricular ejection fraction of 20-25%. He presented in December of 2012 with sustained monomorphic ventricular tachycardia with an inferior axis and left bundle branch block morphology. The event was terminated with direct current cardioversion. Post-conversion he had PVCs which were of a similar morphology and suggestive of an RVOT origin. He was begun on amiodarone which successfully controlled his arrhythmia. He was maintained on amiodarone 200 mg daily. He presented on 12/29/2019 to [facility] with complaints of palpitations. He was found to have a slow hemodynamically stable ventricular tachycardia. He was treated with intravenous amiodarone. He developed bradycardia. A biventricular ICD was implanted on 12/30/2019. He continued to have recurrent episodes of ventricular tachycardia and was transferred to [facility]. He continued with intravenous amiodarone loading. The tachycardia was adequately controlled and he was discharged to home. Since discharge, he has done well. He has not had any palpitations, syncope or presyncope. No shocks. Notes an occassional twitch. No shortness of breath out of the ordinary. Walks 4 blocks per day. No chest pain. FOLLOW-UP - 08/01/2020 - He has not had any syncope, presyncope or ICD shocks. But he complains of dizziness and lightheadedness. In April, he decreased the metoprolol from 200 mg BID to 200 mg dailyand the amiodarone from 200 mg BID to 200 mg daily. Since then he has felt significantly better buthe still complains of dizziness after he takes his morning amiodarone and metoprolol. No syncope or presyncope. No ICD shocks. He also notes that his skin is peeling on his legs and arms which he attributes to the amiodarone. He is aware of significant shortness of breath with activity. He also reports lower extremity edema. FOLLOW-UP - 11/28/2020 - He continues to have daily dizziness which he attributes to the amiodarone or diuretics. He has not had syncope or presyncope. No ICD shocks. No falls. No chest pain. Recentlyhis diuretics were increased and he has lost 20 pounds. No chest pain. FOLLOW-UP - 05/29/2021 - He notes that with activity, his heart rate will increase. He has not been aware of any palpitations or ICD shocks. He notes that his edema has improved. He has difficulty walking. One recent fall. He develops shortness of breath when walking but no chest pain. He is taking amiodarone at 200 mg daily and Toprol at 200 mg daily. FOLLOW-UP - 12/04/2021 - He has done well. He has not had any obvious recurrences of the fast heart rhythm. He will note a fast heart rhythm if he walks up steps quickly. He denies any syncope or presyncope. No ICD shocks recently. FOLLOW-UP - 07/01/2023 - He has done well over the past year with no complaints of palpitations, syncope of ICD shocks, In February, he was hospitalized for a heart failure exacrbation. Doing well now on a high dose of furosemide. No significant shortness of breath with normal activity. Past Medical History: Diagnosis Date AICD (automatic cardioverter/defibrillator) present 01/13/2020 THANH (acute kidney injury) ([facility]) 02/19/2023 creatinine 3.3 [facility] BPH (benign prostatic hyperplasia) Cancer of bladder ([facility]) 03/12/2022 Non-invasive papillary urothelial carcinoma, Chronic systolic heart failure (HCC) 04/26/2019 CKD (chronic kidney disease), stage III (HCC) Dyslipidemia 01/13/2020 Encounter for hepatitis C screening test for low risk patient 12/31/2020 negative Gross hematuria 12/10/2021 watched at [facility], lisinopril stopped Hematoma of left kidney 09/19/2021 admitted [facility], aspirin stopped HTN (hypertension) Idiopathic cardiomyopathy (HCC) Diagnosed - 2009 [place], old 2009, January 2013 Morbid obesity with BMI of 50.0-59.9, adult (HCC) 12/31/2020 Sleep apnea Diagnosed - 2009 Sustained VT (ventricular tachycardia) (HCC) 01/23/2013 Tobacco use disorder 04/26/2019 snuff Unilateral inguinal hernia 11/28/2010 Ventricular arrhythmia 11/11/2011 Non sustained VT Past Surgical History: Procedure Laterality Date ARM/ELBOW SUBQ TUMOR REMOVAL, UNDER 3 CM 05/10/2013 EXCISION TUMOR UPPER ARM SUBCUTANEOUS performed by Deshaun Cash MD at [facility] BACK/FLANK SUBQ TUMOR REMOVAL, UNDER 3 CM 05/10/2013 EXCISION SOFT TISSUE TUMOR BACK OR FLANK performed by Deshaun Cash MD at [facility] CATHETERIZE LEFT HEART THRU SKIN 02/08/2010 LEFT HEART CATH, PERCUTANEOUS performed by CARDIAC QUALITY COORDINATOR DACULA at [facility]ARDIAC [facility] ABD/PELVIS WO IV/ORAL CONTRAST 09/19/[address] ABDOMEN W IV CONTRAST - WO ORAL CONTRAST Bilateral 10/25/2021 bilateral stable renal cysts, 5.1 cm left renal hematoma CT CHEST/ABDOMEN/PELVIS WITHOUT IV CONTRAST WITHOUT ORAL CONTRAST 12/16/2021 stable left renal subcapsular hematoma, cholelithiasis CYSTOSCOPY 10/28/2022 no residual tumor CYSTOSCOPY/TREAT MED BLADDER TUMOR N/A 03/12/2022 CYSTOURETHROSCOPY WITH FULGURATION MEDIUM BLADDER TUMOR performed by Yasmany Campbell MD at [facility] CYSTOSCOPY/URETERAL CATHETER N/A 03/12/2022 CYSTOURETHROSCOPY WITH URETERAL CATHETER performed by Yasmany Campbell MD at [facility] INFORMATION 05/23/2013 05/23/2013 I & D of abcess right thigh INFORMATION Cardioverter/defibrillator placed. REPAIR INITIAL INGUINAL HERNIA REDUCIBLE AGE 5 OR MORE 11/07/2010 11/07/2010 [facility] - Dr. Cash VAS DUPLEX VENOUS LE BILAT Bilateral 09/24/2021 no DVT Current Outpatient Medications Medication Sig Dispense Refill MAG-OXIDE 400 MG PO TABS 1 TABLETS DAILY 34 Tab 11 Tylenol 325 MG Oral Capsule (Acetaminophen) Take by mouth. Amiodarone HCl 200 MG Oral Tablet (Cordarone) Take by mouth 1.5 Tablets in the morning. 180 Tablet 3 Metoprolol Succinate ER 200 MG Oral Tablet Extended Release 24 Hour Take 1 Tablet (200 mg) by mouthat bedtime. 90 Tablet 3 Tadalafil 5 MG Oral Tablet (Cialis) Take 1 Tablet by mouth daily as needed for Erectile Dysfunction. 90 Tablet 3 Furosemide 80 MG Oral Tablet (Lasix) Take 1 Tablet by mouth in the morning and 1 Tablet before bedtime. 180 Tablet 3 Atorvastatin Calcium 40 MG Oral Tablet (Lipitor) TAKE ONE TABLET BY MOUTH AT BEDTIME 90 Tablet 1 Vitamin D3 25 MCG (1000 UT) Oral Tablet (Vitamin D3) Take 1 Tablet by mouth in the morning. 90 Tablet 1 No current facility-administered medications for this visit. Review of patient's allergies indicates: Allergen Reactions Other - Foods Hives Mellow Yellow soda OBJECTIVE: BP 110/66 | Pulse 80 | Resp 20 | Wt (!) 154.7 kg (341 lb) | BMI 46.90 kg/m | BSA 2.79 m Body mass index is 46.9 kg/m. Physical Exam: Neck: No jugular venous pulse, no hepatojugular reflux Lungs: lungs clear to auscultation Cardiac Exam: regular rate & rhythm no murmurs gallops or rubs - normal S1, normal S2 Pulses: The following pulses are normal: carotids Abdomen: abdomen soft and non-tender Extremities: 1+ edema to the mid calf Skin: skin color, texture, turgor are normal, no rashes or significant lesions Neuro: grossly normal exam ICD INTERROGATION - VT - no VT over the past year. - biventricular pacing-93.7% Adult Transthoracic Echocardiography Report(05/02/2019) The left ventricular cavity size is mildly enlarged. The LV wall thickness is mildly increased (concentric). There is moderate diffuse left ventricular hypokinesis. The left ventricular systolic function is moderately reduced. Qualitative LV ejection Fraction = 35-40%. IMPRESSION: 1. Ventricular tachycardia - two morphologies - left bundle with inferior axis consistent with RVOT VT - right bundle with superior accident consistent with LV septal VT 2. History of frequent PVC 3. Nonischemic cardiomyopathy - LVEF - 30 -40% 4. Biventricular ICD - implanted on 12/30/[address] Maximo Woodard 5. Congestive heart failure - mild volume overload COMMENT: Mr. Cantor has a nonischemic cardiomyopathy complicated by 2 forms of monomorphic ventricular tachycardia. One VT is most likely arising from the right ventricular outflow tract while the other VT is most likely arising from the high left ventricular septum. Catheter ablation has been discussed in the past and has been deferred. He is currently on amiodarone at 300 mg daily. Over the past year he is not had any recurrent episodes of ventricular tachycardia. He is tolerating the amiodarone well. Will obtain baseline labs. Will reserve catheter ablation for breakthrough tachycardia PLAN: 1. Continue amiodarone 300 daily 2. If he has recurrent symptomatic VT, will encourage catheter ablation 3. AST, ALT, TSH 4. Return to clinic in 12 months Sandra Armstrong IV, MD Cardiology/Electrophysiology Associate documented in this encounter Nursing Notes * Rosaura Gilliland LPN - 07/01/2023 12:19 PM EST Examination Room: 16 Pt is accompanied by: alone Name: Ovidio Cantor Date of : 1950 Reason for Visit: Follow up Problems/Concerns: Denies cardiac complaints Interim Hosp(s): denies Chest Pain/SOB: denies MyChart Discussed: NO Patient was instructed to not get up on the exam table until directed and assisted by their provider; patient is to remain seated in the chair/ wheelchair/ exam table for fall prevention and safety reasons. Patient is aware staff will assist stepping down off exam table with personnel. documented in this encounter Plan of Treatment Upcoming Encounters Date Type Department Care Team (Late st Contact Info) Description 08/27/2023 10:00 AM EST Office Visit Cardiology [place] [place] [phone] Deshaun Wolf PA-C 132 [facility] [place] [address] 09/15/2023 10:30 AM EST Procedure Only Urology, [facility] [address] [place] [address] Yasmany Campbell MD 27 [facility] [address] [place] [address] 11/11/2023 9:20 AM EDT Office Visit Family Medicine [address] [place] [phone] Edward Pan MD [address] [place] [address] [place] [address] 04/25/2024 2:40 PM EDT Office Visit Nephrology [address] [place] [address] Michelle Sorenson MD [address] [place], [place] [address] 06/29/2024 12:30 PM EST Office Visit Cardiology, [facility] [address] [facility] [place] [address] Sandra Armstrong IV, MD [address] [place], [place] [phone] Scheduled Orders Name Type Priority Associated Diagnoses Orde r Schedule TSH Lab Routine Sustained VT (ventricular tachycardia) (HCC) Class 3 severe obesity due to excess calories without serious comorbidity with body mass index (BMI) of 45.0 to 49.9 in adult (HCC) Chronic systolic congestive heart failure, NYHA class 1 (HCC) Ordered: 07/01/2023 AST Lab Routine Sustained VT (ventricular tachycardia) (HCC) Class 3 severe obesity due to excess calories without serious comorbidity with body mass index (BMI) of 45.0 to 49.9 in adult (HCC) Chronic systolic congestive heart failure, NYHA class 1 (HCC) Ordered: 07/01/2023 ALT Lab Routine Sustained VT (ventricular tachycardia) (HCC) Class 3 severe obesity due to excess calories without serious comorbidity with body mass index (BMI) of 45.0 to 49.9 in adult (HCC) Chronic systolic congestive heart failure, NYHA class 1 (HCC) Ordered: 07/01/2023 Health Maintenance Due Date Last Done Comments [...] Additional history exists CKD HGB USE SMARTSET 71783 05/12/202405/12, 07/25/2022, 07/25/2022, Additional history exists HbA1c 05/12/2024 05/12/2023, 01/25, 10/31/2020, Additional history exists CKD PHOS USE SMARTSET 92085 06/11/202405/27, 11/06/2022, 09/30/2021, Additional history exists Lipid [...] as of this encounter Visit Diagnoses Diagnosis Chronic systolic congestive heart failure, NYHA class 1 (HCC)- Primary Chronic systolic heart failure Sustained VT (ventricular tachycardia) (HCC) Paroxysmal ventricular tachycardia RVOT ventricular tachycardia (HCC) Paroxysmal ventricular tachycardia Class 3 severe obesity due to excess calories without serious comorbidity with body mass index (BMI) of 45.0 to 49.9 in adult (HCC) Nonischemic cardiomyopathy (HCC) Other primary cardiomyopathies AICD (automatic cardioverter/defibrillator) present Automatic implantable cardiac defibrillator in situ documented in this encounter Advance Directives Documents on File Type Date Recorded Patient Sales Correspondence Clerk Expl anation Advance Directives and Living Will 02/26/2023 ADVANCE DIRECTIVE / LIVING WILL Power of Principal Investigator 02/26/2023 POWER OF A TTORNEY Latest Code [...] the patient have Health Care Power of Principal Investigator? No Care Teams Roving Frame Tender Relationship Specialty Start Date End Date Kd Castellon MD [address] [place] [address] [place] [phone] PCP - General Family Medicine 05/03/21 documented as of this encounter"
--- OUTSIDE RECORDS SUMMARY | 2023-08-27 22:01 | External Medical Summary ---
Author Name Unknown Address Unknown Organization K01:[facility] [facility] [address] Laboratory Report Ordering Provider Test Date Status AKI NEVES 05/12/2023 10:00:47 Final Observation Date Value Abnormality Reference (Units ) Status WBC, Total 05/12/2023 10:00:47 6.58 4.00-10.80 (K/uL) Final RBC 05/12/2023 10:00:47 4.15 4.50-5.25 (M/uL) Final Hemoglobin 05/12/2023 10:00:47 13.1 Below low normal 14.0-16.8 (g/dL) Final HCT 05/12/2023 10:00:47 43.1 40.0-48.4 (%) Final MCV 05/12/2023 10:00:47 103.9 82.0-99.5 (fL) Final MCH 05/12/2023 10:00:47 31.6 27.0-34.0 (pg) Final MCHC 05/12/2023 10:00:47 30.4 32.0-36.0 (g/dL) Final RDW 05/12/2023 10:00:47 14.5 11.5-15.5 (%) Final Platelets 05/12/2023 10:00:47 191 140-400 (K/uL) Final MPV 05/12/2023 10:00:47 12.9 6.6-11.1 (fL) Final Nucleated erythrocytes/100 leukocytes [Ratio] in Blood by Automated count 05/12/2023 10:00:47 0 <=0 (/100 WBCs) Final Performing Location [facility] [place] [address] [facility] [address]
--- OUTSIDE RECORDS SUMMARY | 2023-08-27 22:01 | External Medical Summary ---
Author Name Unknown Address Unknown Organization K01:[facility] [address] [place] [address] Laboratory Report Ordering Provider Test Date Status DARIANA [facility] 06/11/2023 13:47:27 Final Observation Date Value Abnormality Reference (Units ) Status Phosphate 06/11/2023 13:47:27 2.9 2.5-4.8 (m g/dL) Final Performing Location [facility] - [address] [place] [address]
--- OUTSIDE RECORDS SUMMARY | 2023-08-27 22:01 | External Medical Summary | Summary of Care ---
Author Name Unknown Organization [facility] Address [address] [facility] [place] [address] Phone [phone] Care Team Providers Care Manager Workers Compensation Name Role Phone Kd Castellon MD Primary Care Provider [phone] Reason for Visit * Reason Comments Outpatient Testing Encounter Details Date Type Department Care Team (Late st Contact Info) Description 06/11/2023 1:30 PM EST Laboratory Laboratory [address] [place] [phone] [place] [address] [employer] 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 Overview: Non-invasive papillary urothelial carcinoma, [place], old 11/04/2021 Overview: January 2013 Chronic kidney [...] as of this encounter (statuses as of 06/11/2023) Resolved Problems Problem Noted Date Diagnosed Date [...] as of this encounter (statuses as of 06/11/2023) Immunizations Name Administration Dates Next Due COVID-19 [...] Care Team (Late st Contact Info) Description 07/01/2023 12:30 PM EST Office Visit Cardiology, [facility] [address] [place] [address] Sandra Armstrong IV, MD [address] [place] [address] 08/27/2023 10:00 AM EST Office Visit Cardiology [address] [place] [address] Deshaun Wolf PA-C [address] [place] [address] 09/15/2023 10:30 AM EST Procedure Only Urology, [facility] [address] [place] [address] Yasmany Campbell MD [address] [facility] [address] [place] [address] 11/11/2023 9:20 AM EDT Office Visit Family Medicine [address] [place] [phone] Edward Pan MD [address] [place] [address] [place] [address] 04/25/2024 2:40 PM EDT Office Visit Nephrology [address] [place] [address] Michelle Sorenson MD [address] [place] [address] Pending Results Name Type Priority Associated Diagnoses Date /Time MYCODE SUBSEQUENT ADULT Lab Routine [employer] Other*[id number] 06/11/2023 1:47 PM EST BASIC METABOLIC PANEL Lab Routine Chronic kidney disease, stage 3b (HCC) 06/11/2023 1:47 PM EST PTH Lab Routine Chronic kidney disease, stage 3b (HCC) 06/11/2023 1:47 PM EST 25-HYDROXY VITAMIN D Lab Routine Chronic kidney disease, stage 3b (HCC) 06/11/2023 1:47 PM EST PHOSPHORUS Lab Routine Chronic kidney disease, stage 3b (HCC) 06/11/2023 1:47 PM EST MYCODE SST1 Lab Routine [employer] Other*[id number] 06/11/2023 1:47 PM EST MYCODE SST2 Lab Routine [employer] Other*[id number] 06/11/2023 1:47 PM EST Health Maintenance Due Date Last Done [...] Screening 05/02/2021 05/02/2020 COVID-19 Vaccine ( - season) 2023 05/19/2022, 08/09/2021, 11/10/2020, Additional history exists Influenza Vaccine (FLU shot) (#1) 2023 GFR 10/15/2023 04/16/2023, 02/26, 03/13/2023, Additional history exists Albumin/Creatinine Ratio 11/07/2023 11/06/2022, 11/25 CKD PHOS USE SMARTSET 95441 11/07/202310/25, 09/30/2021, 12/31/2020, Additional history exists CKD HGB USE SMARTSET 07666 05/12/202405/12, 07/25/2022, 07/25/2022, Additional history exists HbA1c 05/12/2024 05/12/2023, 01/25, 10/31/2020, Additional history exists Lipid Panel 07/25/2027 07/25/2022, 0601/2021, 01/03/2020, Additional history exists GARDASIL-HPV IMMUNIZATION SERIES Aged Out No longer eligible based on patient's age to complete this topic MENINGOCOCCAL (MENACTRA/MENVEO) Aged Out No longer eligible based on patient's age to complete this topic documented as of this encounter Medical Devices Not on filedocumented as of this encounter Visit Diagnoses Diagnosis [employer] Other*[id number] Chronic kidney disease, stage 3b (HCC) documented in this encounter Advance Directives Documents on File Type Date Recorded Patient Press Feeder Broomcorn Expl anation Advance Directives and Living Will 02/26/2023 ADVANCE DIRECTIVE / LIVING WILL Power of Python Developer 02/26/2023 POWER OF A TTORNEY Latest Code [...] the patient have Health Care Power of Python Developer? No Care Teams Manager Workers Compensation Relationship Specialty Start Date End Date Kd Castellon MD [address] [place] [address] [place] [phone] PCP - General Family Medicine 05/03/21 documented as of this encounter
--- OUTSIDE RECORDS SUMMARY | 2023-08-27 22:01 | External Medical Summary | Summary of Care ---
Author Name Unknown Organization [facility] Address [address] [place] [address] Phone [phone] Care Team Providers Care Database Programmer Analyst Name Role Phone Kd Castellon MD Primary Care Provider [phone] Reason for Visit * Reason Onset Date Comments Test Results 06/12/2023 Encounter Details Date Type Department Care Team ([facility] st Contact Info) Description 06/12/2023 Telephone Nephrology [facility], [address] [place] [address] Lias Bazan PA-C [address] [place] [address] Test Results Allergies Active Allergy Reactions Criticality Noted Date Comments Other - Foods Hives 02/08/2010 Mellow Yellow soda documented as of this encounter (statuses as of 06/15/2023) Medications Medication Sig Dispensed Refills Start Date [...] as of this encounter (statuses as of 06/15/2023) Active Problems Problem Noted Date Diagnosed Date 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 Pt states he drinks a gallon of milk a week. His Vitamin Dshould be fine he states. Aware of RX phoned in and to repeat labs in 6 months. 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 [place] [address] Sandra Armstrong IV, MD [address] [place] [address] 08/27/2023 10:00 AM EST Office Visit Cardiology [address] [place] [address] Deshaun Wolf PA-C 132 [facility] [place] [address] 09/15/2023 10:30 AM EST Procedure Only Urology, [facility] [address] [facility] [place] [address] Yasmany Campbell MD [address] [facility] [address] [place] [address] 11/11/2023 9:20 AM EDT Office Visit Family Medicine [address] [place] [phone] Edward Pna MD [address] [place] [address] [place] [address] 04/25/2024 2:40 PM EDT Office Visit Nephrology [address] [place] [address] Michelle Sorenson MD [address] [facility] [place] [address] Health Maintenance Due Date Last Done Comments [...] Additional history exists CKD HGB USE SMARTSET 63643 05/12/202405/12, 07/25/2022, 07/25/2022, Additional history exists HbA1c 05/12/2024 05/12/2023, 01/25, 10/31/2020, Additional history exists CKD PHOS USE SMARTSET 53848 06/11/202405/27, 11/06/2022, 09/30/2021, Additional history exists Lipid Panel 07/25/2027 07/25/2022, 01/2021, 01/03/2020, Additional history exists GARDASIL-HPV IMMUNIZATION SERIES Aged Out No longer eligible based on patient's age to complete this topic MENINGOCOCCAL (MENACTRA/MENVEO) Aged Out No longer eligible based on patient's age to complete this topic documented as of this encounter Medical Devices Not on filedocumented as of this encounter Visit Diagnoses Diagnosis Vitamin D deficiency- Primary Unspecified vitamin D deficiency documented in this encounter Advance Directives Documents on File Type Date Recorded Patient Dye Maker Expl anation Advance Directives and Living Will 02/26/2023 ADVANCE DIRECTIVE / LIVING WILL Power of Physical Therapist Center Manager 02/26/2023 POWER OF A TTORNEY Latest Code [...] the patient have Health Care Power of Physical Therapist Center Manager? No Care Teams Database Programmer Analyst Relationship Specialty Start Date End Date Kd Castellon MD [address] [place] [address] [place] [phone] PCP - General Family Medicine 05/03/21 documented as of this encounter
--- OUTSIDE RECORDS SUMMARY | 2023-08-27 22:01 | External Medical Summary ---
Author Name Unknown Address Unknown Organization K01:[facility] [address] Laboratory Report Ordering Provider Test Date Status DARIANA [facility]ER 06/11/2023 13:47:27 Final Observation Date Value Abnormality Reference (Units ) Status BUN 06/11/2023 13:47:27 39 Above high normal 6-20 (mg/dL) Final Creatinine 06/11/2023 13:47:27 2.2 Above high normal 0.6-1.2 (mg/dL) Final Glomerular filtration rate/1.73 sq M.predicted [Volume Rate/Area] in Serum, Plasma or Blood by Creatinine-based formula (CKD-EPI) 06/11/2023 13:47:27 32 Below low normal >=60 (mL/min) Final eGFR is calculated based on the CKD-EPI 2020 equation SODIUM 06/11/2023 13:47:27 141 135-146 (m mol/L) Final Potassium 06/11/2023 13:47:27 4.7 3.5-5.1 (m mol/L) Final Cl 06/11/2023 13:47:27 96 Below low normal 98- 107 (mmol/L) Final CO2 06/11/2023 13:47:27 33 Above high normal 22 -32 (mmol/L) Final Anion gap 06/11/2023 13:47:27 12 7-15 (mmol /L) Final Glucose 06/11/2023 13:47:27 103 70-120 (mg /dL) Final Calcium 06/11/2023 13:47:27 9.2 8.4-10.2 ( mg/dL) Final Performing Location LAB[facility]ORY [facility] - [facility] [place] [address]
--- OUTSIDE RECORDS SUMMARY | 2023-08-27 22:01 | External Medical Summary | Summary of Care ---
Author Name Unknown Organization [facility] Address [address] [place] [address] Phone [phone] Care Team Providers Care Eye Technician Name Role Phone Kd Castellon MD Primary Care Provider + [phone] Reason for Referral * Evaluate & Treat - Unlimited Visits (Within 10 days (routine)) - Authorized Specialty Diagnoses / Procedures Referred By Contmary t Referred To Contact Podiatry Diagnoses Prediabetes Kd Castellon MD [address] [place] [address] [place] [phone] Referral ID Status Reason Start Date Expiration Date Visits Requested Visits Authorized [id number] Authorized Specialty Services Required 3 999 999 Question Answer Referral Priority Within 10 days (routine) Where should this appointment be scheduled? [facility] Which condition are you referring this patient for? Routine Foot Care Medicare Patient? Yes Can Patient perform routine footcare without assistance? No Does patient have a chronic condition? Yes Has patient been seen in the past 6 months? Yes Date last seen for chronic condition: 05/12/2023 Who saw patient for chronic condition? Cande Reason for Visit * Reason Comments Re-Check Encounter Details Date Type Department Care Team Description 05/12/2023 Office Visit Family Medicine [address] [place] [phone] Kd Castellon MD [address] [place] [address] [place] [phone] Prediabetes*; MT, old; Dyslipidemia, goal LDL below 70; Chronic kidney disease, stage 3b (HCC); Non-ischemic cardiomyopathy (HCC); Chronic systolic heart failure (HCC); Body mass index (BMI) of 45.0 to 49.9 in adult (HCC) Allergies Active Allergy Reactions Severity Noted Date Comments Other - Foods Hives 02/08/2010 Mellow Yellow soda documented as of this encounter (statuses as of 05/12/2023) Medications Medication Sig Dispensed Refills Start Date End Date Status MAG-OXIDE 400 MG PO TABSIndications:Idio pathic cardiomyopathy (HCC),Sleep apnea 1 TABLETS DAILY 34 Tab 11 03/08/2011 Active Tylenol 325 MG Oral Capsule (Acetaminophen) Take by mouth. 0 Activ e Amiodarone HCl 200 MG Oral Tablet (Cordarone)Indicatio ns:Ventricular arrhythmia Take by mouth 1.5 Tablets in [...] Active Atorvastatin Calcium 40 MG Oral Tablet (Lipitor)Indications :Prediabetes,Dyslipi demia, goal LDL below 70,Non-ischemic cardiomyopathy (HCC) TAKE ONE TABLET BY MOUTH AT BEDTIME 90 Tablet 1 04/09/2023 Active Lisinopril 5 MG Oral Tablet (Prinivil)Indication s:Prediabetes,Chroni c systolic heart failure (HCC),Chronic kidney disease, stage 3b (HCC) Take by mouth 1 Tablet in the morning. 90 Tablet 3 05/14/2022 3 Discontinue d(Patient preference/ discontinua tion) documented as of this encounter (statuses as of 05/12/2023) Active Problems Problem Noted Date 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 Overview: Non-invasive papillary urothelial carcinoma, [place], old 11/04/2021 Overview: January 2013 Chronic kidney disease, stage 3b 022 Overview: Per CKD protocol Body mass index (BMI) of 45.0 to 49.9 in adult 02/04/2021 Overview: Per Obesity protocol Prediabetes 05/07/2020 Overview: Per Prediabetes protocol Dyslipidemia, goal LDL below 70 01/13/20 20 AICD (automatic cardioverter/defibrillat or) present 01/13/2020 Chronic systolic heart failure 9 Tobacco use disorder 04/26/2019 Overview: snuff RVOT ventricular tachycardia 01/23/2013 Non-ischemic cardiomyopathy 02/09/2010 documented as of this encounter (statuses as of 05/12/2023) Resolved Problems Problem Noted Date Resolved Date Morbid obesity with BMI of 50.0-59.9, adult 01/202102/07/2021 Overview: Per Obesity protocol Stage 3a chronic kidney disease 06/04/2020 10/09/2021 Overview: Per CKD protocol Body mass index (BMI) of 50.0 to 59.9 in adult 1 08/04/2019 01/10/2021 Overview: Per Obesity protocol - Per Obesity protocol - Ventricular tachycardia, sustained 01/02/2020 01/05/2020 Nocturnal hypoxia 01/02/2020 01/13/2020 Body mass index (BMI) of 45.0 to 49.9 in adult 1 06/07/2020 Overview: Per Obesity protocol - Body mass index (BMI) of 40.0 to 44.9 in adult 1 05/11/2019 Overview: Per Obesity protocol #1 Kidney disease, chronic, stage III (GFR 30-59 ml /min) 12/01/2016 06/07/2020 Overview: Per CKD protocol #1 Sustained VT (ventricular tachycardia) 3 04/26/2019 Frequent PVCs 01/23/2013 05/02/2020 Ventricular arrhythmia 11/11/2011 9 Overview: Non sustained VT Unilateral inguinal hernia 11/28/201004/19 Sleep apnea 02/10/2010 03/04/2013 Acute myocardial infarction, initial episode of care 02/08/2010 02/08/2010 Overview: ICD-10 update of inactive term Acute coronary syndrome 02/08/2010 02/10/20 10 Morbid obesity, BMI not known 02/08/2010 Overview: Per Obesity protocol #1 documented as of this encounter (statuses as of 05/12/2023) Immunizations Name Administration Dates Next Due COVID-19 [...] Q uit: 07/27/1995 Smokeless Tobacco: Current Snuff Tobacco Cessation:Ready to Q uit: Not Asked; Counseling Given: Not Answered Comments:Quit smoking 20 years ago. Can of snuff lasts one day Alcohol Use Standard Drinks/Week Comments Not Currently 0 (1 standard drink = 0.6 oz pur e alcohol) Quit Food Insecurity Answer Date Recorded Within the past 12 months, y ou worried that your food would run out before you got money to buy more. Never true 05/02/2020 Within the past 12 months, t he food you bought just didn't last and you didn't have money to get more. Never true 05/02/2020 Sex Assigned at Date Recorded Not on file Job Start Date Occupation Industry Not on file Not on file Not on file documented as of this encounter Last Filed Vital Signs Vital Sign Reading Time Taken Comments Blood Pressure 120/70 05/12/2023 9:39 AM EDT Pulse 80 05/12/2023 9:39 AM EDT Temperature 36 C (96.8 F) 05/12/2023 9:39 AM EDT Respiratory Rate 16 05/12/2023 9:39 AM EDT Oxygen Saturation - - Inhaled Oxygen Concentration - - Weight 157 kg (346 lb 3 oz) 05/12/2023 9:39 AM E DT Height - - Body Mass Index 47.62 11/06/2022 10:43 AM EDT documented in this [...] or making decisions? (5 years old or older No 01/02/2020 documented as of this encounter Progress Notes * Kd Castellon MD - 05/12/2023 9:48 AM EDT Ovidio is not happy. He has not seen cardiology for a while. He says they keep cancelling. This ishis 6 month visit with me and complains he has not seen me. He no showed in February after his 2 hospitalizations. Weight fluctuates a lot depending on taking his water pills, etc. He is wearing tight stockings. He is not having chest pain. He really struggles with walking with a cane and getting up from our chair. He lives alone, no one visits, sends his laundry out, etc. He recently had labs for Dr Sorenson. Health Maintenance addressed. Had the Coronovirus vaccine, 4 doses. REFUSES FLU SHOT Past Medical History: Diagnosis Date AICD (automatic cardioverter/defibrillator) present 01/13/2020 THANH (acute kidney injury) (HCC) 02/19/2023 creatinine 3.3 [facility] BPH (benign prostatic hyperplasia) Cancer of bladder (HCC) 03/12/2022 Non-invasive papillary urothelial carcinoma, Chronic systolic heart failure (HCC) 04/26/2019 CKD (chronic kidney disease), stage III (HCC) Dyslipidemia 01/13/2020 Encounter for hepatitis C screening test for low risk patient 12/31/2020 negative Gross hematuria 12/10/2021 watched at [facility], lisinopril stopped Hematoma of left kidney 09/19/2021 admitted [facility], aspirin stopped HTN (hypertension) Idiopathic cardiomyopathy (HCC) Diagnosed - 2009 MT, old 2009, January 2013 Morbid obesity with BMI of 50.0-59.9, adult (HCC) 12/31/2020 Sleep apnea Diagnosed - 2009 Sustained VT (ventricular tachycardia) ([facility]) 01/23/2013 Tobacco use disorder 04/26/2019 snuff Unilateral inguinal hernia 11/28/2010 Ventricular arrhythmia 11/11/2011 Non sustained VT Past Surgical History: Procedure Laterality Date ARM/ELBOW SUBQ TUMOR REMOVAL, UNDER 3 CM 05/10/2013 EXCISION TUMOR UPPER ARM SUBCUTANEOUS [facility] BACK/FLANK SUBQ TUMOR REMOVAL, UNDER 3 CM 05/10/2013 EXCISION SOFT TISSUE TUMOR BACK OR FLANK performed by Deshaun Cash MD at [facility] CATHETERIZE LEFT HEART THRU SKIN 02/08/2010 LEFT HEART CATH, PERCUTANEOUS performed by CARDIAC SOLDERING INSPECTOR ATTAPULGUS at [facility] CT ABD/PELVIS WO IV/ORAL CONTRAST 09/19/2021 left [...] TUMOR performed by Yasmany Campbell MD at [facility] CYSTOSCOPY/URETERAL CATHETER N/A 03/12/2022 CYSTOURETHROSCOPY WITH URETERAL CATHETER performed by Yasmany Campbell MD at [facility] INFORMATION 05/23/2013 05/23/2013 I & D of abcess right thigh INFORMATION Cardioverter/defibrillator placed. REPAIR INITIAL INGUINAL HERNIA REDUCIBLE AGE 5 OR MORE 11/07/2010 11/07/2010 [facility] - Dr. Cash VASC DUPLEX VENOUS LE BILAT Bilateral 09/24/2021 no DVT Review of patient's allergies indicates: Allergen Reactions Other - Foods Hives Mellow Yellow soda Social History Socioeconomic History Marital status: Single Spouse name: Not on file Number of children: Not on file Years of education: Not on file Highest education level: Not on file Occupational History Not on file Tobacco Use Smoking status: Former Packs/day: 1.00 Years: 10.00 Pack years: 10.00 Types: Cigarettes Quit date: 07/27/1995 Years since quittin.8 Smokeless tobacco: Current Types: Snuff Tobacco comments: Quit smoking 20 years ago. Can of snuff lasts one day Substance and Sexual Activity Alcohol use: Not Currently Comment: Quit Drug use: No Sexual activity: Not on file Other Topics Concern Not on file Social History Narrative Not on file Social Determinants of Health Financial Resource Strain: Not on file Food Insecurity: Not on file Transportation Needs: Not on file Physical Activity: Not on file Stress: Not on file Social Connections: Not on file Intimate Partner Violence: Not on file Housing Stability: Not on file Current Outpatient Medications Medication Sig Dispense Refill [...] BY MOUTH AT BEDTIME 90 Tablet 1 No current facility-administered medications for this visit. Immunization History Administered Date(s) Administered COVID-19 mRNA, LNP-s, No Preserve, 2-Dose Series (Moderna) 10/13/2020, 11/10/2020 COVID-19, mRNA, LNP-s, PF, Booster, 100mcg/0.5mg (Moderna) 08/09/2021 Covid-19, Mrna, Lnp-s, Pf, Bivalent, 50 Mcg, IM, 12 yrs and above (Moderna) 05/19/2022 Pneumococcal Conjugate Vacc, 13 Valent (Prevnar) 02/09/2010 Pneumococcal Polysaccharide PPV23 (Pneumovax) 02/09/2010 TDAP (age 11 and older)(Adacel) 05/17/2009 Results for orders placed or performed in visit on 04/16/23 BASIC METABOLIC PANEL Result Value Ref Range BUN 36 (H) 6 - 20 mg/dL Creatinine 2.4 (H) 0.6 - 1.2 mg/dL Estimated Glomerular Filtration Rate 29 (L) >=60 mL/min Sodium 139 135 - 146 mmol/L Potassium 4.8 3.5 - 5.1 mmol/L Chloride 94 (L) 98 - 107 mmol/L CO2 29 22 - 32 mmol/L Anion Gap 16 (H) 7 - 15 mmol/L Glucose 104 70 - 120 mg/dL Calcium 8.8 8.4 - 10.2 mg/dL Lab Results Component Value Date/Time HEMOGLOBIN A1C - [facility] 5.9 (H) 02/19/2022 10:40 AM HEMOGLOBIN A1C - [facility] 6.6 (H) 10/31/2020 10:10 AM HEMOGLOBIN A1C - [facility] 6.4 (H) 05/02/2020 10:54 AM HEMOGLOBIN A1C - [facility] 5.7 (H) 01/03/2020 04:24 AM HEMOGLOBIN A1C - [facility] 5.6 02/08/2010 12:19 PM Results for orders placed or performed in visit on 07/25/22 LIPID PANEL WITH DIRECT LDL IF TG IS HIGH Result Value Ref Range Triglycerides 61 <=174 mg/dL Cholesterol 124 <200 mg/dL HDL Cholesterol 49 >39 mg/dL Non-HDL Cholesterol 75 <=159 mg/dL LDL Cholesterol 63 <=129 mg/dL O: Blood pressure 120/70, pulse 80, temperature 36 C (96.8 F), temperature source Tympanic, resp. rate 16, weight (!) 157 kg (346 lb 3 oz). Neck is supple without adenopathy or thyromegaly. Chestis symmetrical and moves normally. The lungs are clear without wheezes, rales, rhonchi or rubs, andthe heart is regular without murmurs or gallops, or ectopy. PMI not displaced. He has tight stockings on, no edema A: Prediabetes (Primary) - HEMOGLOBIN A1C; Future; Expected date: 05/12/2023 - PODIATRY REFERRAL OP MT, old Dyslipidemia, goal LDL below 70 Chronic kidney disease, stage 3b (HCC) Non-ischemic cardiomyopathy (HCC) Chronic systolic heart failure (HCC) - CBC; Future; Expected date: 05/12/2023 - BNP, NT-PRO; Future; Expected date: 05/12/2023 Body mass index (BMI) of 45.0 to 49.9 in adult (HCC) Continue other meds as before. Follow Up: Return in about 6 months (around 11/11/2023) for Clinic Visit. | For: Clinic Visit documented in this encounter Nursing Notes * Nataly Ramirez LPN - 05/12/2023 9:36 AM EDT 6 month recheck documented in this encounter Plan of Treatment Upcoming Encounters Date Type Specialty Care Team Description 06/11/2023 Office Visit Nephrology Lisa Bazan PA-C [address] [place] [address] 07/01/2023 Office Visit Cardiology Sandra Armstrong IV, MD [address], [place] [phone] 08/27/2023 Office Visit Cardiology Deshaun Wolf PA-C [address] [place] [address] 09/15/2023 Procedure Only Urology Yasmany Campbell MD [address] [place] [address] [place] [address] Pending Results Name Type Priority Associated Diagnoses Date /Time HEMOGLOBIN A1C Lab Routine Prediabetes 05/12/2023 10:00 AM EDT CBC Lab Routine Chronic systolic heart failure (HCC) 05/12/2023 10:00 AM EDT BNP, NT-PRO Lab Routine Chronic systolic heart failure (HCC) 05/12/2023 10:00 AM EDT Scheduled Orders Name Type Priority Associated Diagnoses Orde r Schedule HEMOGLOBIN A1C Lab Routine Prediabetes Expected: 05/12/2023 (Approximate), Expires: 05/11/2024 CBC Lab Routine Chronic systolic heart failure (HCC) Expected: 05/12/2023 (Approximate), Expires: 05/11/2024 BNP, NT-PRO Lab Routine Chronic systolic heart failure (HCC) Expected: 05/12/2023 (Approximate), Expires: 05/11/2024 Scheduled Referrals Name Type Priority Associated Diagnoses Orde r Schedule PODIATRY REFERRAL OP Referral Within 10 days (routine) Prediabetes Ordered: 05/12/2023 Health Maintenance Due Date Last Done Comments Cologuard 1996 Colonoscopy 1996 Sigmoidoscopy 1996 Zoster Vaccines (1 of 2) 2001 Colorectal Cancer Screening 03/01/2011 Fecal Occult Blood Test 03/01/2011 03/01/2010 AAA Screening 2016 Pneumococcal Vaccine: 65+ Years (3 - PPSV23 or PCV20) 2016 02/09/2010, 02/09/2010 DTaP,Tdap,and Td Vaccines (2 - Td or Tdap) 05/17/2019 05/17/2009 Depression Screening 05/02/2021 05/02/2020 HbA1c 02/19/2023 02/19/2022, 04/0 01/2021, 05/02/2020, Additional history exists COVID-19 Vaccine ( - 2022- season) 2023 05/19/2022, 08/09/2021, 11/10/2020, Additional history exists Influenza Vaccine (FLU shot) (#1) 2023 CKD HGB USE SMARTSET 38612 07/25/202307/25, 07/25/2022, 02/19/2022, Additional history exists GFR 10/15/2023 04/16/2023, 02/26, 03/13/2023, Additional history exists Albumin/Creatinine Ratio 11/07/2023 11/06/2022, 05/10/2021 CKD PHOS USE SMARTSET 25781 11/07/202310/25, 09/30/2021, 12/31/2020, Additional history exists Lipid Panel 07/25/2027 07/25/2022, 06/0 01/2021, 01/03/2020, Additional history exists GARDASIL-HPV IMMUNIZATION SERIES Aged Out No longer eligible based on patient's age to complete this topic Hepatitis B Aged Out No longer eligi ble based on patient's age to complete this topic MENINGOCOCCAL (MENACTRA/MENVEO) Aged Out No longer eligible based on patient's age to complete this topic documented as of this encounter Medical Devices Not on filedocumented as of this encounter Visit Diagnoses Diagnosis Prediabetes- Primary Other abnormal glucose MT, old Old myocardial infarction Dyslipidemia, goal LDL below 70 Other and unspecified hyperlipidemia Chronic kidney disease, stage 3b (HCC) Non-ischemic cardiomyopathy (HCC) Other primary cardiomyopathies Chronic systolic heart failure (HCC) Chronic systolic heart failure Body mass index (BMI) of 45.0 to 49.9 in adult (HCC) documented in this encounter Advance Directives Documents on File Type Date Recorded Patient Lapel Padder Expl anation Advance Directives and Living Will 02/26/2023 ADVANCE DIRECTIVE / LIVING WILL Power of Telephone Operators Supervisor 02/26/2023 POWER OF A TTORNEY Latest Code [...] the patient have Health Care Power of Telephone Operators Supervisor? No Care Teams Eye Technician Relationship Specialty Start Date End Date Kd Castellon MD [address] [place] [address] [place] [id number] PCP - General Family Medicine 05/03/21 documented as of this encounter"
--- OUTSIDE RECORDS SUMMARY | 2023-08-27 22:01 | External Medical Summary | Summary of Care ---
Author Name Unknown Organization [facility] Address [address] [facility] [place] [address] Phone [phone] Care Team Providers Care Cotton Factor Name Role Phone Kd Castellon MD Primary Care Provider Reason for Visit * Reason Comments Outpatient Testing Encounter Details Date Type Department Care Team Description 05/12/2023 Laboratory Laboratory [address] [place] [phone] [facility] [address] [place] [address] Prediabetes; Chronic systolic heart failure (HCC) Allergies Active Allergy Reactions Severity Noted [...] bladder 03/12/2022 Overview: Non-invasive papillary urothelial carcinoma, [place], old 11/04/2021 Overview: January 2013 Chronic kidney [...] Valent (Prevnar) 02/09/2010 Pneumococcal Polysaccharide PPV23 (Pneumovax) 07 / TDAP (age 11 and older)(Adacel) 05/17/2009 documented [...] Office Visit Nephrology Lisa Bazan PA-C [address] [place] [address] 07/01/2023 Office Visit Cardiology Sandra Armstrong IV, MD [address] [place] [address] 08/27/2023 Office Visit Cardiology Deshaun Wolf PA-C [address] [place] [address] 09/15/2023 Procedure Only Urology Yasmany Campbell MD [address] [place] [place] [address] Pending Results Name Type Priority Associated Diagnoses Date /Time HEMOGLOBIN A1C Lab Routine Prediabetes 05/12/2023 10:00 AM EDT CBC Lab Routine Chronic systolic heart failure (HCC) 05/12/2023 10:00 AM EDT BNP, NT-PRO Lab Routine Chronic systolic heart failure (HCC) 05/12/2023 10:00 AM EDT Health Maintenance Due Date Last Done Comments [...] 05/02/2020, Additional history exists COVID-19 Vaccine ( season) 2023 05/19/2022, 08/09/2021, 11/10/2020, Additional history exists Influenza Vaccine (FLU shot) (#1) 2023 CKD HGB USE SMARTSET 27545 07/25/202307/25, 07/25/2022, 02/19/2022, Additional history exists GFR 10/15/2023 04/16/2023, 02/26, 03/13/2023, Additional history exists Albumin/Creatinine Ratio 11/07/2023 11/06/2022, 05/2 10/2021 CKD PHOS USE SMARTSET 22066 11/07/202310/25, 09/30/2021, 12/31/2020, Additional history exists Lipid [...] as of this encounter Visit Diagnoses Diagnosis Prediabetes Other abnormal glucose Chronic systolic heart failure (HCC) Chronic systolic heart failure documented in this encounter Advance Directives Documents on File Type Date Recorded Patient Media Professional Expl anation Advance Directives and Living Will 02/26/2023 ADVANCE DIRECTIVE / LIVING WILL Power of Exceptional Needs Teacher 02/26/2023 POWER OF A TTORNEY Latest Code [...] the patient have Health Care Power of Exceptional Needs Teacher? No Care Teams Cotton Factor Relationship Specialty Start Date End Date Kd Castellon MD [address] [place] [address] [place] [phone] PCP - General Family Medicine 05/03/21 documented as of this encounter
--- OUTSIDE RECORDS SUMMARY | 2023-08-27 22:01 | External Medical Summary ---
Author Name Unknown Address Unknown Organization [id number]:[facility] [place] [address] [facility] [place] [address] Laboratory Report Ordering Provider Test Date Status MARIMAR VERA 06/11/2023 13:47:27 Final Observation Date Value Abnormality Reference (Units ) Status MYCODE SPECIMEN-SST 06/11/2023 13:47:27 Freezing of extracted DNA, whole blood and/or serum. Final Performing Location [facility] [place] [address] [facility] [address]
--- OUTSIDE RECORDS SUMMARY | 2023-08-27 22:01 | External Medical Summary | Summary of Care ---
Author Name Unknown Organization [facility] Address [address] [facility] [address] Phone [phone] Care Team Providers Care Mechanist Name Role Phone Kd Castellon MD Primary Care Provider [phone] Reason for Visit * Reason Comments Chronic Kidney Disease (CKD) Encounter Details Date Type Department Care Team (Late st Contact Info) Description 06/11/2023 1:00 PM EST Office Visit Nephrology [address] [place] [address] Lisa Bazan PA-C [address] [place] [address] [place] [address] Chronic kidney disease, stage 3b (HCC)*; History of acute renal failure; HTN, goal below 130/80; Chronic systolic heart failure (HCC); Renal atrophy, left Allergies Active Allergy Reactions Criticality Noted Date Comments Other - Foods Hives 02/08/2010 Mellow Yellow soda documented as of this encounter (statuses as of 06/12/2023) Medications Medication Sig Dispensed Refills Start Date [...] as of this encounter (statuses as of 06/12/2023) Active Problems Problem Noted Date Diagnosed Date [...] as of this encounter (statuses as of 06/12/2023) Resolved Problems Problem Noted Date Diagnosed Date [...] as of this encounter (statuses as of 06/12/2023) Immunizations Name Administration Dates Next Due COVID-19 [...] Sign Reading Time Taken Comments Blood Pressure 119/65 06/11/2023 1:04 PM EST Pulse 64 06/11/2023 1:04 PM EST Temperature 36.9 C (98.4 F) 06/11/2023 1:04 PM ES T Respiratory Rate 18 06/11/2023 1:04 PM EST Oxygen Saturation 95% 06/11/2023 1:04 PM EST Inhaled Oxygen Concentration - - Weight 153.8 kg (339 lb) 06/11/2023 1:04 PM EST Height - - Body Mass Index 46.63 11/06/2022 10:43 AM EDT documented in this [...] as of this encounter Progress Notes * Lisa Bazan PA-C - 06/11/2023 1:00 PM EST NEPHROLOGY CLINIC NOTE Nephrology [address] [place] [address] Patient Name: Ovidio Cantor Patient Active Problem List Diagnosis Code Non-ischemic cardiomyopathy (HCC) I42.8 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 [facility] consultation for acute kidney injury where he was admitted from February 19 to February 25 2022 for same in the setting of acute on chronic systolic heart failure. Past Medical history includes chronic systolic heart failure and nonischemic HAND SHOES SEWER (also admitted to hospital February 07 to for same), ventricular tachycardia status post defibrillator, class 3 obesity BMI 47, hyperlipidemia, prediabetes, history of noninvasive low-grade bladder cancer diagnosed January 2022 status postTURBT 02/2022, urolithiasis (last active 1984), sleep apnea not on CPAP per pt w/ 3 negative tests. No history of urology intervention for stones and no stones seen on recent imaging. Unknown stone composition. [facility] [facility] discharge: underwent cystoscopy earlier today in follow-up of bladder cancer with Dr. Campbell. No recurrent tumor seen on study and will now undergo Q six-month cystoscopies. He was offered finasteride but declined this. Presenting creatinine was 3.3 and discharge creatinine was 2.5-2.8. He was discharged home on Lasix80 mg twice daily with lisinopril on hold. During previous hospitalization, patient had also undergone therapy for lower extremity cellulitis with Rocephin and daptomycin and discharged on 3 days of doxycycline. Tells me he weighed 337 lb on leaving [facility]; feels edema controlled. Not SOB. Does daily standing wts at home >> 341.2 lb this am. No orthostatic/presyncopal sx Today 06/11/23 Denies any recent hospitalizations, procedures or infections. Reports checking bp and weight daily States weight is approx 339lb daily may change 1-3 lbs depending on swelling and gi issues Patient reports drinking 1 qt of water daily. 1 POT of coffee daily. Also charisma laina, milk, cranberry juice Reports appt with Dr. Campbell, urology, in Sep 15- imaging to be completed at that time routine - completed throughout the year since tumor removed from kidney and bladder Reports fu with [facility] in Aug concerned he has not seen cards due to cancellation in approx +1yr REVIEW OF SYSTEMS General: No fatigue, + change in weight 1-2lbs Head: No significant headache Respiratory: No cough,No wheezing, No shortness of breath Cardiovascular:No chest pain, No palpitations, and No syncope Gastrointestinal: No nausea, vomiting, diarrhea No blood in stools No abdominal pain Urinary: No dysuira, No hematuria. No flank pain Musculoskeletal: No muscle/joint pains , No edema Skin: No itching All other systems were reviewed and were negative. Current Outpatient Medications Medication Sig Dispense Refill [...] No current facility-administered medications for this visit. PHYSICAL EXAMINATION Last 4 BP Readings: BP Readings from Last 4 Encounters: 06/11/23 119/65 05/12/23 120/70 03/10/23 112/63 11/06/22 138/80 Last 3 Weights: Wt Readings from Last 3 Encounters: 06/11/23 (!) 153.8 kg (339 lb) 05/12/23 (!) 157 kg (346 lb 3 oz) 03/10/23 (!) 154.7 kg (341 lb) BP 119/65 (BP Site: Right Arm, BP Position: Sitting, BP Cuff Size: Large) | Pulse 64 | Temp 36.9 C (98.4 F) | Resp 18 | Wt (!) 153.8 kg (339 lb) | SpO2 95% | BMI 46.63 kg/m | BSA 2.79 m Wt Readings from Last 1 Encounters: 06/11/23 (!) 153.8 kg (339 lb) General appearance: alert, no apparent distress. Ambulatory with cane HEAD: Normocephalic, No masses, lesions, tenderness Respiratory: clear to auscultation, no rhonchi, no wheezes, and no crackles Heart: regular rate and regular rhythm Abdomen: abdomen soft, non-tender, and no CVA tenderness EXTREMITIES: + edema- but with compression stockings, No cyanosis or clubbing Skin: skin color, texture, turgor are normal NEURO: alert & oriented x 3 with fluent speech, no focal motor/sensory deficits No tremor Patient is a reliable historian of events LABS: Latest Reference Range & Units 02/19/22 10:40 07/25/22 09:37 11/06/22 11:03 03/13/23 08:35 03/25/23 10:44 04/16/23 10:15 Sodium 135 - 146 mmol/L 142 139 142 139 140 139 Potassium 3.5 - 5.1 mmol/L 4.8 4.6 4.9 4.5 4.7 4.8 Chloride 98 - 107 mmol/L 100 96 (L) 101 96 (L) 96 (L) 94 (L) CO2 22 - 32 mmol/L 31 37 (H) 32 32 29 29 BUN 6 - 20 mg/dL 25 (H) 34 (H) 42 (H) 41 (H) 49 (H) 36 (H) Creatinine 0.6 - 1.2 mg/dL 1.8 (H) 1.9 (H) 2.2 (H) 2.4 (H) 2.6 (H) 2.4 (H) Estimated Glomerular Filtration Rate >=60 mL/min 40 (L) 38 (L) 32 (L) 28 (L) 26 (L) 29 (L) Anion Gap 7 - 15 mmol/L 11 6 (L) 9 11 15 16 (H) Glucose 70 - 120 mg/dL 106 104 107 106 112 104 Calcium 8.4 - 10.2 mg/dL 9.3 9.2 9.0 9.2 8.9 8.8 (L): Data is abnormally low (H): Data is abnormally high Latest Reference Range & Units 12/17/21 11:06 11/06/22 11:03 Albumin / Creatinine Ratio, Urine <30 mg/g Creat <13 <24 ALBUMIN / CREATININE RATIO, URINE Rpt Rpt Albumin, Random Urine mg/dL <1.20 <1.20 Rpt: View report in Results Review for more information IMAGING: EXAM: CT ABD/PELVIS WO IV/ORAL CONTRAST DATE and TIME: 08/04/2022 12:24 pm HISTORY CLINICAL INFORMATION: Bladder cancer, history of perinephric hematoma. TECHNIQUE Oral Contrast: Oral contrast was not administered. IV Contrast: No IV Contrast used Abdomen/Pelvis: without intravenous contrast COMPARISON CT renal dated 10/21/2021 FINDINGS LOWER CHEST: HEART(visualized): Coronary artery calcifications. Cardiac leads. LUNG BASES: Unremarkable ABDOMEN/PELVIS: LIVER: Unremarkable BILE DUCTS: Unremarkable GALLBLADDER: Unremarkable PANCREAS: Unremarkable SPLEEN: Unremarkable ADRENALS: Unremarkable KIDNEYS/URETERS: Cortical thinning bilaterally. Multiple bilateral cystic lesions with the largest exophytic from the anterior interpolar left kidney measuring 2.6 cm. Previous left perinephric hematoma is now markedly smaller 2.1 cm in thickness. BLADDER: The bladder is physiologically distended. BOWEL: The absence of oral contrast limits evaluation of the bowel. The stomach is collapsed. The small and large bowel are normal caliber. There is no suspicious bowel wall thickening. LYMPH NODES: Subcentimeter niraj hepatic lymph nodes likely reactive. VESSELS: Minimal calcifications of the aorta and iliofemoral arteries. Several venous collaterals in the left groin. REPRODUCTIVE ORGANS: Unremarkable PERITONEUM/RETROPERITONEUM: Unremarkable ABDOMINAL WALL/SOFT TISSUES: Small fat containing inguinal hernias. Small fat containing umbilical hernia. BONES: Demineralized bones. Multilevel vacuum disc phenomenon. IMPRESSION IMPRESSION 1. Substantial decrease in perinephric hematoma now up to 2.1 cm in transverse dimension previouslyup to 6.1 cm. 2. Unremarkable appearing bladder on this non-contrast study. ASSESSMENT/PLAN: The patient's most recent labs (from 2 months ago) were reviewed and the assessment/plan is as follows: CKD 3b with emerging 4 with history of stage 1 THANH nonoliguric w/ acceptable chemistries. Still with some edema able to ambulate and feels wt is ok, no acute SOB. Acceptable compensation Chronic kidney disease, stage 3b (HCC) (Primary) History of acute renal failure - BASIC METABOLIC PANEL; Future; Expected date: 06/11/2023 - PTH; Future; Expected date: 06/11/2023 - 25-HYDROXY VITAMIN D; Future; Expected date: 06/11/2023 - PHOSPHORUS; Future; Expected date: 06/11/2023 HTN, goal below 130/80 At goal . Cont current lasix dose and Cont to hold lisinopril Chronic systolic heart failure (HCC) Compenated, Cont home daily wts, low Na diet. Not on FR and may need to consider Renal atrophy, left Imaging at [facility] notes renal atrophy at site of former hematoma; will cont monitor Labs placed - pt requesting to be completed today concerned with upcoming weather conditions in June Discussed labs every 3 months No changes to meds Cont to monitor weight and bp at home Avoid medicines like aleve, advil, ibuprofen, aspirin more than 81 mg daily and other NSAIDS which are not good for kidney patients. Take only tylenol (acetaminophen) up to 2000 mg daily as needed for pain or as directed by your primary care provider. Reviewed previous status of kidney function and goals of care. All questions were answered. Check-out note: 3 months with Yas Bazan PA-C Nephrology [address] [place] [address] documented in this encounter Nursing Notes * Fatmata Abdul RN - 06/11/2023 1:06 PM EST Follow up visit today. NO recent illness or hospital stays since February. Swelling improved in legs per pt. documented in this encounter Plan of Treatment Upcoming Encounters Date Type Department Care Team (Late st Contact Info) Description 07/01/2023 12:30 PM EST Office Visit Cardiology, [facility] [address] [facility] [place] [address] Sandra Armstrong IV, MD [address] [place] [address] 08/27/2023 10:00 AM EST Office Visit Cardiology [address] [place] [address] Deshaun Wolf PA-C [address] [place] [address] 09/15/2023 10:30 AM EST Procedure Only [facility]rology, [facility] [place] [address] Yasmany Campbell MD [address] [facility] [address] [place] [address] 11/11/2023 9:20 AM EDT Office Visit Family Medicine [address] [place] [phone] Edward Pan MD [address] [place] [address] [place] [phone] 04/25/2024 2:40 PM EDT Office Visit Nephrology [address] [place] [address] Michelle Sorenson MD [address] [place] [address] Scheduled Orders Name Type Priority Associated Diagnoses Orde r Schedule BASIC METABOLIC PANEL Lab Routine Chronic kidney disease, stage 3b (HCC) Expected: 09/12/2023, Expires: 06/12/2024 Health Maintenance Due Date Last Done Comments [...] Additional history exists CKD HGB USE SMARTSET 29079 05/12/202405/123, 07/25/2022, 07/25/2022, Additional history exists HbA1c 05/12/2024 05/12/2023, 01/25, 10/31/2020, Additional history exists CKD PHOS USE SMARTSET 27254 06/11/202405/27, 11/06/2022, 09/30/2021, Additional history exists Lipid Panel 07/25/2027 07/25/2022, 0601/2021, 01/03/2020, Additional history exists GARDASIL-HPV IMMUNIZATION SERIES Aged Out No longer eligible based on patient's age to complete this topic MENINGOCOCCAL (MENACTRA/MENVEO) Aged Out No longer eligible based on patient's age to complete this topic documented as of this encounter Medical Devices Not on filedocumented as of this encounter Results * PHOSPHORUS (06/11/2023 1:47 PM EST) Phosphorus 2.9 2.5 - 4.8 mg/dL 06/12/2023 1:13 AM EST LABORATORY [facility] Blood Venous blood specimen / Unknown Venipuncture / Unknown 06/11/2023 1:47 PM EST 06/11/2023 1:47 PM EST Lisa Bazan PA-C LAB BLOOD ORD ERABLES [facility] [address] [place] [address] * (ABNORMAL) 25-HYDROXY VITAMIN D (06/11/2023 1:47 PM EST) 25-Hydroxy Vitamin D 18(L) >19 ng/mL 06/12/2023 1:55 AM EST [facility] Blood Venous blood specimen / Unknown Venipuncture / Unknown 06/11/2023 1:47 PM EST 06/11/2023 1:47 PM EST Narrative LAB[facility]ATORY [facility] - 06/12/2023 1:55 AM EST Deficient: <20 ng/mL Insufficient: 20-29 ng/mL Recommended/Optimum:30-50 ng/mL Vitamin D intoxication is rare. If suspicious of Vitamin D toxicity, evaluation of serum Calcium and PTH is recommended. Lisa Jackson Hortensia [place] LAB BLOOD ORD ERABLES Performing Organization Address City/[facility]/ZIP Co de Phone Number LABORATORY [facility] [address] [place] [address] * (ABNORMAL) PTH (06/11/2023 1:47 PM EST) PTH 137(H) 15 - 65 pg/mL 06/12/2023 1:55 AM EST LABORATORY [facility] Blood Venous blood specimen / Unknown Venipuncture / Unknown 06/11/2023 1:47 PM EST 06/11/2023 1:47 PM EST Lisa Renetta [place] LAB BLOOD ORD ERABLES Performing Organization Address [facility] Co de Phone Number LABORATORY [facility] [address] [place] [address] * (ABNORMAL) BASIC METABOLIC PANEL (06/11/2023 1:47 PM EST) BUN 39(H) 6 - 20 mg/dL 06/12/2023 1:13 AM EST [facility] Creatinine 2.2(H) 0.6 - 1.2 mg/dL 06/12/2023 1:13 AM EST LAB[facility]ORY [facility] Estimated Glomerular Filtration Rate 32(L) >=60 mL/min 06/12/2023 1:13 AM EST LAB[facility]ATORY [facility] Comment:eGFR is calculated b ased on the CKD-EPI 2020 equation Sodium 141 135 - 146 mmol/L 06/12/2023 1:13 AM EST [facility]ORY [facility] Potassium 4.7 3.5 - 5.1 mmol/L 06/12/2023 1:13 AM EST [facility] Chloride 96(L) 98 - 107 mmol/L 06/12/2023 1:13 AM EST [facility] CO2 33(H) 22 - 32 mmol/L 06/12/2023 1:13 AM EST [facility] Anion Gap 12 7 - 15 mmol/L 06/12/2023 1:13 AM EST [facility] Glucose 103 70 - 120 mg/dL 06/12/2023 1:13 AM EST [facility] Calcium 9.2 8.4 - 10.2 mg/dL 06/12/2023 1:13 AM EST [facility] Blood Venous blood specimen / Unknown Venipuncture / Unknown 06/11/2023 1:47 PM EST 06/11/2023 1:47 PM EST Lisa Bazan PA-C LAB BLOOD ORD ERABLES [facility]ORY [facility] [address] [place] [address] documented in this encounter Visit Diagnoses Diagnosis Chronic kidney disease, stage 3b (HCC)- Primary History of acute renal failure Personal history of other disorder of urinary system HTN, goal below 130/80 Unspecified essential hypertension Chronic systolic heart failure (HCC) Chronic systolic heart failure Renal atrophy, left Renal sclerosis, unspecified documented in this encounter Advance Directives Documents on File Type Date Recorded Patient Hand Baseball Sewer Expl anation Advance Directives and Living Will 02/26/2023 ADVANCE DIRECTIVE / LIVING WILL Power of Procedure Rn 02/26/2023 POWER OF A TTORNEY Latest Code [...] the patient have Health Care Power of Procedure Rn? No Care Teams Mechanist Relationship Specialty Start Date End Date Kd Castellon MD [address] [place] [address] [place] [phone] PCP - General Family Medicine 05/03/21 documented as of this encounter"
--- OUTSIDE RECORDS SUMMARY | 2023-08-27 22:01 | External Medical Summary ---
Author Name Unknown Address Unknown Organization K01:LABORATORY [facility] [place] [address] [facility] [place] [address] Laboratory Report Ordering Provider Test Date Status MARIMAR VERA 06/11/2023 13:47:27 Final Observation Date Value Abnormality Reference (Units ) Status MYCODE SPECIMEN-SST 06/11/2023 13:47:27 Freezing of extracted DNA, whole blood and/or serum. Final Performing Location LABORATORY [facility] - [address] [facility] [address]
--- OUTSIDE RECORDS SUMMARY | 2023-08-27 22:01 | External Medical Summary | Summary of Care ---
Author Name Unknown Organization [facility] Address [address] [place] [address] Phone [phone] Care Team Providers Care Semiconductor Package Symbol Stamper Name Role Phone Kd Prabhakar MD Primary Care Provider Reason for Visit * Reason Comments eRx-Medication Refill Encounter Details Date Type Department Care Team (Late st Contact Info) Description 07/06/2023 Refill Family Medicine [address] [phone] Kd Prabhakar MD [address] [place] [address] [place] [address] Allergies Active Allergy Reactions Criticality Noted Date Comments Other - Foods Hives 02/08/2010 Mellow Yellow soda documented as of this encounter (statuses as of 07/07/2023) Medications Medication Sig Dispensed Refills Start Date End Date Status MAG-OXIDE 400 MG PO TABSIndications:Idi opathic cardiomyopathy (HCC),Sleep apnea 1 TABLETS DAILY 34 Tab 11 03/08/2011 Active Tylenol 325 MG Oral Capsule (Acetaminophen) Take by mouth. 0 Active Amiodarone HCl 200 MG Oral Tablet (Cordarone)Indicati ons:Ventricular arrhythmia Take by mouth 1.5 Tablets in [...] Active Atorvastatin Calcium 40 MG Oral Tablet (Lipitor)Indication s:Prediabetes,Dysli pidemia, goal LDL below 70,Non-ischemic cardiomyopathy (HCC) TAKE ONE TABLET BY MOUTH AT BEDTIME 90 Tablet 1 04/09/2023 Active Vitamin D3 25 MCG (1000 UT) Oral Tablet (Vitamin D3)Indications:Felisa min D deficiency Take 1 Tablet by mouth in the morning. 90 Tablet 1 06/12/2023 Active Metoprolol Succinate ER 200 MG Oral Tablet Extended Release 24 Hour TAKE ONE TABLET BY MOUTH AT BEDTIME 90 Tablet 1 07/07/2023 Active Metoprolol Succinate ER 200 MG Oral Tablet Extended Release 24 Hour Take 1 Tablet (200 mg) by mouth at bedtime. 90 Tablet 3 06/17/2022 3 Discontinued documented as of this encounter (statuses as of 07/07/2023) Active Problems Problem Noted Date Diagnosed Date 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 Overview: Non-invasive papillary urothelial carcinoma, ID, old 11/04/2021 Overview: January 2013 Chronic kidney [...] as of this encounter (statuses as of 07/07/2023) Resolved Problems Problem Noted Date Diagnosed Date [...] as of this encounter (statuses as of 07/07/2023) Immunizations Name Administration Dates Next Due COVID-19 [...] encounter Miscellaneous Notes * Telephone Encounter - Ronan Jacobs [facility] - 07/07/2023 10:00 AM ESTSigned Prescriptions: Disp Refills Metoprolol Succinate ER 200 MG Oral Tablet*90 Tab*1 Sig: TAKE ONE TABLET BY MOUTH AT BEDTIMEAuthorizing Provider: KD PRABHAKAR User: RONAN JACOBS documented in this encounter Plan of Treatment Upcoming Encounters Date Type Department Care Team (Late st Contact Info) Description 08/27/2023 10:00 AM EST Office Visit Cardiology [address] [place] [address] Deshaun Wolf PADariC [address] [place] [address] 09/15/2023 10:30 AM EST Procedure Only [facility], [facility] [place] [address] Yasmany Campbell MD 27 [facility] [address] [place] [address] 11/11/2023 9:20 AM EDT Office Visit Family Medicine [address] [place] [phone] Edward Pan MD [address] [place] [address] [place] [address] 04/25/2024 2:40 PM EDT Office Visit Nephrology [address] [place] [address] Michelle Sorenson MD [address] [facility] [place] [address] 06/29/2024 12:30 PM EST Office Visit Cardiology, [facility] [address] [place] [address] Sandra Armstrong IV, MD [address] [facility] [place] [address] Health Maintenance Due Date Last Done Comments [...] Additional history exists CKD HGB USE SMARTSET 36383 05/12/202405/12, 07/25/2022, 07/25/2022, Additional history exists HbA1c 05/12/2024 05/12/2023, 01/25, 10/31/2020, Additional history exists CKD PHOS USE SMARTSET 66270 06/11/202405/27, 11/06/2022, 09/30/2021, Additional history exists Lipid [...] Documents on File Type Date Recorded Patient Consolidator Expl anation Advance Directives and Living Will 02/26/2023 ADVANCE DIRECTIVE / LIVING WILL Power of Leather Parts Matcher 02/26/2023 POWER OF A TTORNEY Latest Code [...] the patient have Health Care Power of Leather Parts Matcher? No Care Teams Semiconductor Package Symbol Stamper Relationship Specialty Start Date End Date Kd Prabhakar MD [address] [place] [address] [place] [id number] PCP - General Family Medicine 05/03/21 documented as of this encounter
--- OUTSIDE RECORDS SUMMARY | 2023-08-27 22:01 | External Medical Summary ---
Author Name Unknown Address Unknown Organization K01:LABORATORY [facility] [place] [address] [facility] [address] [facility] [address] Laboratory Report Ordering Provider Test Date Status AKI NEVES 05/12/2023 10:00:47 Final Observation Date Value Abnormality Reference (Units ) Status HbA1C 05/12/2023 10:00:47 6.1 Above high normal 4. 0-5.6 (%) Final The use of HbA1c to monitor glycemic status is based on normal hemoglobin and HbA composition. This test should not be used in patients with abnormal hemoglobin that affects the half life of the red blood cell or the in vivo glycation rates. Glucose, estimated average 05/12/2023 10:00:47 128 Above high normal <126 (mg/dL) Ambrose awan Performing Location LABORATORY [facility] [place] - [address] [facility] [address]
--- OUTSIDE RECORDS SUMMARY | 2023-08-27 22:01 | External Medical Summary | Summary of Care ---
Author Name Unknown Organization [facility] Address [address] [facility] [place] [address] Phone [phone] Care Team Providers Care Cook Ship Name Role Phone Kd Castellon MD Primary Care Provider [phone] Reason for Visit * Reason Comments Outpatient Testing Encounter Details Date Type Department Care Team Description 05/12/2023 Laboratory Laboratory [address] [place] [id number] [facility] [address] [place] [address] Prediabetes; Chronic systolic heart failure (HCC) Allergies Active Allergy Reactions Severity Noted Date Comments Other - Foods Hives 02/08/2010 Mellow Yellow soda documented as of this encounter (statuses as of 05/13/2023) Medications Medication Sig Dispensed Refills Start Date [...] as of this encounter (statuses as of 05/13/2023) Active Problems Problem Noted Date 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 Overview: Non-invasive papillary urothelial carcinoma, [place], old 11/04/2021 Overview: January 2013 Chronic kidney [...] as of this encounter (statuses as of 05/13/2023) Resolved Problems Problem Noted Date Resolved Date [...] as of this encounter (statuses as of 05/13/2023) Immunizations Name Administration Dates Next Due COVID-19 [...] Office Visit Nephrology Lisa Bazan PA-C [address] [place] [address] 07/01/2023 Office Visit Cardiology Sandra Armstrong IV, MD [address] [place] [address] 08/27/2023 Office Visit Cardiology Deshaun Wolf PA-C [address] [place] [address] 09/15/2023 Procedure Only Urology Yasmany Campbell MD [address] [place] [phone] 11/11/2023 Office Visit Family Medicine Edward Pan MD [address] [place] [address] [place] [address] Health Maintenance Due Date Last Done Comments [...] 11/07/2023 11/06/2022, 11/25 CKD PHOS USE SMARTSET 66351 11/07/202310/25, 09/30/2021, 12/31/2020, Additional history exists CKD HGB USE SMARTSET 22570 05/12/202405/12, 07/25/2022, 07/25/2022, Additional history exists HbA1c 05/12/2024 05/12/2023, 07/2 01/2022, 10/31/2020, Additional history exists Lipid Panel 07/25/2027 [...] Not on filedocumented as of this encounter Procedures Procedure Name Priority Date/Time Associated Diagnosis Comments HEMOGLOBIN A1C Routine 05/12/2023 10:00 AM EDT Prediabetes BNP (NT-PROBNP) Routine 05/12/2023 10:00 AM EDT Chronic systolic heart failure (HCC) CBC Routine 05/12/2023 10:00 AM EDT Chronic systolic heart failure (HCC) documented in this encounter Results * (ABNORMAL) BNP, NT-PRO (05/12/2023 10:00 AM EDT) BNP, NT-Pro 1,237(H) <300 pg/mL 05/13/2023 1:35 AM EDT LAB[facility] Blood Venous blood specimen / Unknown Venipuncture / Unknown 05/12/2023 10:00 AM EDT 05/12/2023 10:00 AM EDT Narrative [facility] - 05/13/2023 1:35 AM EDT Exclude Heart Failure: <300 pg/mL Diagnose Heart Failure: Age <50 yr: >450 pg/mL 50-75 yr: >900 pg/mL >75 yr: >1800 pg/mL GFR is 30-59 mL/min: >1200 pg/mL or Age-adjusted values GFR <30 mL/min: do not use, not reliable Prognostic threshold: 1000 pg/mL Kd Castellon MD LAB BLOOD ORDERABLES [facility] [address] [place] [address] * (ABNORMAL) CBC (05/12/2023 10:00 AM EDT) WBC 6.58 4.00 - 10.80 K/uL 05/12/2023 11:36 PM EDT [facility] RBC 4.15 4.50 - 5.25 M/uL 05/12/2023 11:36 PM EDT LABORATORY [facility] HGB 13.1(L) 14.0 - 16.8 g/dL 05/12/2023 11:36 PM EDT [facility] HCT 43.1 40.0 - 48.4 % 05/12/2023 11:36 PM EDT [facility] MCV 103.9 82.0 - 99.5 fL 05/12/2023 11:36 PM EDT [facility] MCH 31.6 27.0 - 34.0 pg 05/12/2023 11:36 PM EDT LAB[facility] MCHC 30.4 32.0 - 36.0 g/dL 05/12/2023 11:36 PM EDT [facility] RDW 14.5 11.5 - 15.5 % 05/12/2023 11:36 PM EDT [facility] PLT 191 140 - 400 K/uL 05/12/2023 11:36 PM EDT [facility] MPV 12.9 6.6 - 11.1 fL 05/12/2023 11:36 PM EDT [facility] nRBCs 0 <=0 /100 WBCs 05/12/2023 11:36 PM EDT [facility] Blood Venous blood specimen / Unknown Venipuncture / Unknown 05/12/2023 10:00 AM EDT 05/12/2023 10:00 AM EDT Kd Castellon MD LAB BLOOD ORDERABLES [facility] [address] [place] [address] * (ABNORMAL) HEMOGLOBIN A1C (05/12/2023 10:00 AM EDT) Pathologist [facility] Hemoglobin A1C 6.1(H) 4.0 - 5.6 % 05/13/2023 1:18 AM EDT LABORATORY [facility] Comment:The use of HbA1c to monitor glycemic status is based on normal hemoglobin and HbA composition. This test should not be used in patients with abnormal hemoglobin that affects the half life of the red blood cell or the in vivo glycation rates. 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 No Care Teams Cook Ship Relationship Specialty Start Date End Date Kd Castellon MD [address] [place] [address] [place] [address] PCP - General Family Medicine 05/03/21 documented as of this encounter
--- OUTSIDE RECORDS SUMMARY | 2023-08-27 22:01 | External Medical Summary ---
Author Name Unknown Address Unknown Organization [id number]:[facility] [place] [address] [place] [address] Laboratory Report Ordering Provider Test Date Status DARIANA KAISER 06/11/2023 13:47:27 Final Deficient: <20 ng/mL
Ins ufficient: 20-29 ng/mL
Recommended/Optimum:30-50 ng/mL

Vitamin D intoxication is rare. If suspicious of Vitamin D toxicity, evaluation of serum Calcium and PTH is recommended. Observation Date Value Abnormality Reference (Units ) Status 25-OH Vitamin D total 06/11/2023 13:47:27 18 Below low normal >19 (ng/mL) Final Performing Location [facility] [place] [address] [place] [address]
--- OUTSIDE RECORDS SUMMARY | 2023-08-27 22:01 | External Medical Summary ---
Author Name Unknown Address Unknown Organization [id number][facility] [place] [address] [place] [address] Laboratory Report Ordering Provider Test Date Status DARIANA KAISER 06/11/2023 13:47:27 Final Observation Date Value Abnormality Reference (Units ) Status Parathyrin.intact [Mass/volume] in Serum or Plasma 06/11/2023 13:47:27 137 Above high normal 15-65 (pg/mL) Final Performing Location [facility] [place] [address] [place] [address]
--- OUTSIDE RECORDS SUMMARY | 2023-08-27 22:02 | External Medical Summary | Summary of Care ---
Author Name Unknown Organization [facility] Address [address] [place] [address] Phone [phone] Care Team Providers Care Solar Energy Systems Engineer Name Role Phone Kd Prabhakar MD Primary Care Provider Reason for Visit * Reason Onset Date Comments Medication Refill 03/23/2023 Encounter Details Date Type Department Care Team Description 03/23/2023 Refill Family Medicine [address] [phone] Kd Prabhakar MD [address] [place] [address] [place] [address] Allergies Active Allergy Reactions Severity Noted Date Comments Other - Foods Hives 02/08/2010 Mellow Yellow soda documented as of this encounter (statuses as of 03/23/2023) Medications Medication Sig Dispensed Refills Start Date End Date Status MAG-OXIDE 400 MG PO TABSIndications:Idi opathic cardiomyopathy (HCC),Sleep apnea 1 TABLETS DAILY 34 Tab 11 03/08/2011 Active Tylenol 325 MG Oral Capsule (Acetaminophen) Take by mouth. 0 Activ e Lisinopril 5 MG Oral Tablet (Prinivil)Indicatio ns:Prediabetes,Employee Development Manager savannah systolic heart failure (HCC),Chronic kidney disease, stage 3b (HCC) Take by mouth 1 Tablet in the morning. 90 Tablet 3 05/14/2022 Active Additional Information Patient not taking.Reported on 03/10/2023 Amiodarone HCl 200 MG Oral Tablet (Cordarone)Indicati ons:Ventricular arrhythmia Take by mouth 1.5 Tablets in the morning. 180 Tablet 3 05/28/2022 Active Atorvastatin Calcium 40 MG Oral Tablet (Lipitor)Indication s:Prediabetes,Dysli pidemia, goal LDL below 70,Non-ischemic cardiomyopathy (HCC) TAKE ONE TABLET BY MOUTH AT BEDTIME 90 Tablet 2 06/17/2022 Active Metoprolol Succinate ER 200 MG Oral Tablet Extended Release 24 Hour Take 1 Tablet (200 mg) by mouth at bedtime. 90 Tablet 3 06/17/2022 Active Tadalafil 5 MG Oral Tablet (Cialis) Take 1 Tablet by mouth daily as needed for Erectile Dysfunction. 90 Tablet 3 10/28/2022 Active Furosemide 40 MG Oral Tablet (Lasix) Take 1 Tablet by mouth in the morning and 1 Tablet before bedtime. 180 Tablet 3 03/23/2023 Active Furosemide 40 MG Oral Tablet (Lasix) TAKE ONE TABLET BY MOUTH TWICE DAILY 180 Tablet 3 10/29/2022 3 Discontinu ed(Refill) documented as of this encounter (statuses as of 03/23/2023) Active Problems Problem Noted Date 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 Overview: Non-invasive papillary urothelial carcinoma, [place], old 11/04/2021 Overview: January 2013 Chronic kidney [...] as of this encounter (statuses as of 03/23/2023) Resolved Problems Problem Noted Date Resolved Date [...] as of this encounter (statuses as of 03/23/2023) Immunizations Name Administration Dates Next Due COVID-19 mRNA, LNP-s, No Pre serve, 2-Dose Series (Moderna) 11/10/2020,10/13/2020 Covid-19 Mrna, Lnp-s, No Preserve, Booster (Mode rna) 08/09/2021 Covid-19, Mrna, Lnp-s, Pf, B ivalent, [...] encounter Miscellaneous Notes * Telephone Encounter - Kd Prabhakar MD - 03/23/2023 3:14 PM EDTSigned Prescriptions: Disp Refills Furosemide 40 MG Oral Tablet (Lasix) 180 Ta*3 Sig: Take 1 Tablet by mouth in the morning and 1 Tablet before bedtime. Authorizing Provider: KD PRABHAKAR * Telephone Encounter - Aixa Bell RN - 03/23/2023 3:02 PM EDTPending Prescriptions: Disp Refills Furosemide 40 MG Oral Tablet (Lasix) 180 Ta*3 Sig: Take 1 Tablet by mouth in the morning and 1 Tablet before bedtime. * Telephone Encounter - Kim Cuevas [place] - 03/23/2023 2:40 PM EDT Did you pend patient's preferred pharmacy and medication before forwarding?yes Pharmacy: [id number] [address] [facility] Pending Prescriptions: Disp Refills Furosemide 40 MG Oral Tablet (Lasix) 180 Ta*3 Sig: Take 1 Tablet by mouth in the morning and 1 Tablet before bedtime. Last Visit: 11/06/2022 (in office), Visit date not found (telemedicine) Next Visit: 05/12/2023 If no future appointments scheduled, and last appointment is greater than a year ago, please schedule patient for a follow-up appointment Last date the medication was ordered: 10.29.22 Is this request for a controlled substance?No Urine Drug Screen:No results found for this or any previous visit. Patient Phone Numbers Labs: Lab Results Component Value Date/Time CREAT 2.4 (H) 03/13/2023 08:35 AM CREAT 1.82 (A) 12/11/2021 12:00 AM CREAT 1.5 (H) 08/02/2020 10:55 AM POTASSIUM 4.5 03/13/2023 08:35 AM POTASSIUM 4.2 12/11/2021 12:00 AM POTASSIUM 4.8 08/02/2020 10:55 AM TSH 0.58 05/28/2022 12:48 PM TSH 0.94 01/03/2020 04:24 AM LDLCALC 63 07/25/2022 09:37 AM LDLCALC 76 01/03/2020 04:24 AM LDLDIRECT NOT APPLICABLE 04/18/2019 02:47 PM ALT 29 07/25/2022 09:37 AM ALT 10 10/24/2019 11:51 AM HGBA1C 5.9 (H) 02/19/2022 10:40 AM HGBA1C 6.4 (H) 05/02/2020 10:54 AM documented in this encounter Plan of Treatment Upcoming Encounters Date Type Specialty Care Team Description 05/12/2023 Office Visit Family Medicine Kd Prabhakar MD [address] [place] [address] [place] [phone] 06/11/2023 [facility] [address] 07/01/2023 Office Visit Cardiology Sandra Armstrong IV, MD [address] [facility] [place] [address] 08/27/2023 Office Visit Cardiology Deshaun Wolf PA-C [address] [place] [address] 09/15/2023 Procedure Only Urology Yasmany Campbell MD [address] [place] [address] Health Maintenance Due Date Last Done Comments Cologuard 1996 Colonoscopy 1996 Sigmoidoscopy 1996 Zoster Vaccines (1 of 2) 2001 Colorectal Cancer Screening 03/01/2011 Fecal Occult Blood Test 03/01/2011 03/01/2010 AAA Screening 2016 Pneumococcal Vaccine: 65+ Years (3 - PPSV23 or PCV20) 2016 02/09/2010, 02/09/2010 DTaP,Tdap,and Td Vaccines (2 - Td or Tdap) 05/17/2019 05/17/2009 Depression Screening, Annual for Pts 12 and Over 05/02/2021 05/02/2020 HbA1c 02/19/2023 02/19/2022, 040 01/2021, 05/02/2020, Additional history exists Influenza Vaccine (FLU shot) (#1) 2023 CKD HGB USE SMARTSET 43076 07/25/202307/25, 07/25/2022, 02/19/2022, Additional history exists GFR 09/13/2023 03/13/2023, 10/25, 07/25/2022, Additional history exists Albumin/Creatinine Ratio 11/07/2023 11/06/2022, 05/2 10/2021 CKD PHOS USE SMARTSET 26933 11/07/202310/25, 09/30/2021, 12/31/2020, Additional history exists Lipid Panel 07/25/2027 07/25/2022, 06/0 01/2021, 01/03/2020, Additional history exists COVID-19 Vaccine Completed 05/19/2022, , 11/10/2020, Additional history exists GARDASIL-HPV IMMUNIZATION SERIES Aged [...] Documents on File Type Date Recorded 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 No Care Teams Solar Energy Systems Engineer Relationship Specialty Start Date End Date Kd Prabhakar MD [address] [place] [address] [place] [phone] PCP - General Family Medicine 05/03/21 documented as of this encounter
--- OUTSIDE RECORDS SUMMARY | 2023-08-27 22:02 | External Medical Summary | Summary of Care ---
Author Name Unknown Organization [facility] Address [address] [place] [address] Phone [phone] Care Team Providers Care Brassiere Cup Mold Cutter Name Role Phone Kd Castellon MD Primary Care Provider Reason for Visit * Reason Onset Date Comments Test Results 03/16/2023 Encounter Details Date Type Department Care Team Description 03/16/2023 Telephone Nephrology, [place] [address] [facility] [place] [address] Michelle Sorenson MD [address] [facility] [place] [address] Test Results Allergies Active Allergy Reactions Severity Noted Date Comments Other - Foods Hives 02/08/2010 Mellow Yellow soda documented as of this encounter (statuses as of 03/16/2023) Medications Medication Sig Dispensed Refills Start Date End Date Status MAG-OXIDE 400 MG PO TABSIndications:Idio pathic cardiomyopathy (HCC),Sleep apnea 1 TABLETS DAILY 34 Tab 11 03/08/2011 Active Tylenol 325 MG Oral Capsule (Acetaminophen) Take by mouth. 0 Activ e Lisinopril 5 MG Oral Tablet (Prinivil)Indication s:Prediabetes,Chroni c systolic heart failure (HCC),Chronic kidney disease, stage 3b (HCC) Take by mouth 1 Tablet in the morning. 90 Tablet 3 05/14/2022 Active Additional Information Patient not taking.Reported on 03/10/2023 Amiodarone HCl 200 MG Oral Tablet (Cordarone)Indicatio [...] MOUTH TWICE DAILY 180 Tablet 3 10/29/2022 Active Additional Information Patient taking differently: 80 mg BID(AM/PM), Reported on 03/10/2023 documented as of this encounter (statuses as of 03/16/2023) Active Problems Problem Noted Date 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 Overview: Non-invasive papillary urothelial carcinoma, [place], old 11/04/2021 Overview: January 2013 Chronic kidney [...] as of this encounter (statuses as of 03/16/2023) Resolved Problems Problem Noted Date Resolved Date [...] as of this encounter (statuses as of 03/16/2023) Immunizations Name Administration Dates Next Due COVID-19 [...] Telephone Encounter - Fatmata Abdul RN - 03/16/2023 9:01 AM EDT LMAM to repeat tests in 2 weeks. Order placed. * Telephone Encounter - Fatmata Abdul RN - 03/16/2023 8:58 AM EDT ----- Message from Michelle Sorenson MD sent at 03/13/2023 6:11 PM EDT ----- Kidney labs similar to those during [facility] stay. He has had marked uptitration of diuretics recently to manage heart failure and kidney function has progressed. Also had recent cystoscopy though doubt that please much role here. -no changes to care provided breathing and weights are stable -recheck basic metabolic panel in 10-14 days given creatinine trend documented in this encounter Plan of Treatment Upcoming Encounters Date Type Specialty Care Team Description 05/12/2023 Office Visit Family Medicine Kd Castellon MD [address] [place] [address] [place] [phone] 06/11/2023 [facility] [phone] 07/01/2023 Office Visit Cardiology Sandra Armstrong IV, MD [address] [place] [address] 08/27/2023 Office Visit Cardiology Deshaun Wolf PA-C [address] [place] [address] 09/15/2023 Procedure Only Urology Yasmany Campbell MD [address] [place] [address] Scheduled Orders Name Type Priority Associated Diagnoses Orde r Schedule BASIC METABOLIC PANEL Lab Routine Chronic kidney disease, stage 3b (HCC) Expected: 03/30/2023 (Approximate), Expires: 03/16/2024 Health Maintenance Due Date Last Done Comments [...] shot) (#1) 2023 CKD HGB USE SMARTSET 57709 07/25/202307/25, 07/25/2022, 02/19/2022, Additional history exists GFR 09/13/2023 03/13/2023, 10/25, 07/25/2022, Additional history exists Albumin/Creatinine Ratio 11/07/2023 11/06/2022, 05/2 10/2021 CKD PHOS USE SMARTSET 36140 11/07/202310/25, 09/30/2021, 12/31/2020, Additional history exists Lipid [...] of this encounter Visit Diagnoses Diagnosis Chronic kidney disease, stage 3b (HCC)- Primary documented in this encounter Advance Directives Documents on File Type Date Recorded 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 No Care Teams Brassiere Cup Mold Cutter Relationship Specialty Start Date End Date Kd Castellon MD [address] [place] [address] [place] [phone] PCP - General Family Medicine 05/03/21 documented as of this encounter
--- OUTSIDE RECORDS SUMMARY | 2023-08-27 22:02 | External Medical Summary ---
Author Name Unknown Address Unknown Organization K01:[facility] - [address] [facility] [place] [address] Laboratory Report Ordering Provider Test Date Status CUBA ÁLVAREZ 03/13/2023 08:35:32 Final Observation Date Value Abnormality Reference (Units ) Status PSA 03/13/2023 08:35:32 3.07 <4.10 (ng/ mL) Final Performing Location [facility] - [address] [place] [address]
--- OUTSIDE RECORDS SUMMARY | 2023-08-27 22:02 | External Medical Summary ---
Author Name Unknown Address Unknown Organization K01:[facility] [place] - [facility] [address] [facility] [address] [facility] [address] Laboratory Report Ordering Provider Test Date Status RAYMUNDO BANERJEE 04/16/2023 10:15:09 Final Observation Date Value Abnormality Reference (Units ) Status BUN 04/16/2023 10:15:09 36 Above high normal 6-20 (mg/dL) Final Creatinine 04/16/2023 10:15:09 2.4 Above high normal 0.6-1.2 (mg/dL) Final Glomerular filtration rate/1.73 sq M.predicted [Volume Rate/Area] in Serum, Plasma or Blood by Creatinine-based formula (CKD-EPI) 04/16/2023 10:15:09 29 Below low normal >=60 (mL/min) Final eGFR is calculated based on the CKD-EPI 2020 equation SODIUM 04/16/2023 10:15:09 139 135-146 (m mol/L) Final Potassium 04/16/2023 10:15:09 4.8 3.5-5.1 (m mol/L) Final Cl 04/16/2023 10:15:09 94 Below low normal 98- 107 (mmol/L) Final CO2 04/16/2023 10:15:09 29 22-32 (mmo l/L) Final Anion gap 04/16/2023 10:15:09 16 Above high normal 7- 15 (mmol/L) Final Glucose 04/16/2023 10:15:09 104 70-120 (mg /dL) Final Calcium 04/16/2023 10:15:09 8.8 8.4-10.2 ( mg/dL) Final Performing Location [facility] [place] - [address] [place] [address]
--- OUTSIDE RECORDS SUMMARY | 2023-08-27 22:02 | External Medical Summary | Summary of Care ---
Author Name Unknown Organization [facility] Address [address] [place] [address] Phone [phone] Care Team Providers Care Corn Grower Name Role Phone Kd Castellon MD Primary Care Provider Reason for Visit * Reason Onset Date Comments Test Results 04/14/2023 Encounter Details Date Type Department Care Team Description 04/14/2023 Telephone Nephrology, Michelle Dresden [address] [place] [address] Michelle Sorenson MD [address] [place] [address] Test Results Allergies Active Allergy Reactions Severity Noted Date Comments Other - Foods Hives 02/08/2010 Mellow Yellow soda documented as of this encounter (statuses as of 04/14/2023) Medications Medication Sig Dispensed Refills Start Date [...] as of this encounter (statuses as of 04/14/2023) Active Problems Problem Noted Date Cancer of [...] as of this encounter (statuses as of 04/14/2023) Resolved Problems Problem Noted Date Resolved Date [...] as of this encounter (statuses as of 04/14/2023) Immunizations Name Administration Dates Next Due COVID-19 [...] encounter Miscellaneous Notes * Telephone Encounter - Michelle Sorenson MD - 04/14/2023 3:05 PM EDT Noted. Await labs * Telephone Encounter - Felisa Dyer RN - 04/14/2023 1:07 PM EDT Reports weight trends from the past week: 04/12-? 04/13-344.4 343.3 naked weight No SOB. Confirmed that he is taking 80 mg of Lasix," every 12 hours" He continues to monitory the sodium content of his diet. He will have blood work before the end of the week. (Entered) * Telephone Encounter - Felisa Dyer RN - 04/14/2023 12:38 PM EDT I left a message for the patient to return my call. * Telephone Encounter - Felisa Dyer RN - 04/14/2023 12:37 PM EDT ----- Message from Michelle Sorenson MD sent at 04/13/2023 4:49 PM EDT ----- Labs from 2 wks back about where they were during hospital stay [facility]. >how is his wt ? Was 237 on hospital d/c and 241 at mid February. >how is sob? >>on pretty high dose lasix w/o K supplements >> recommend recheck bmp, mag w/in next week if still on lasix 80 mg bid documented in this encounter Plan of Treatment Upcoming Encounters Date Type Specialty Care Team Description 05/12/2023 Office Visit Family Medicine Kd Castellon MD [address] [place] [address] [place] [address] 06/11/2023 Office Visit Nephrology Lisa Bazan PA-C [address] [facility] [place] [address] 07/01/2023 Office Visit Cardiology Sandra Armstrong IV, MD [address] [facility] [address] 08/27/2023 Office Visit Cardiology Deshaun Wolf PA-C [address] [place] [address] 09/15/2023 Procedure Only Urology Yasmany Campbell MD [address] [address] [place] [address] Scheduled Orders Name Type Priority Associated Diagnoses Orde r Schedule BASIC METABOLIC PANEL Lab Routine Chronic kidney disease, stage 3b (HCC) Expected: 04/14/2023, Expires: 04/14/2024 MAGNESIUM Lab Routine Chronic kidney disease, stage 3b (HCC) Expected: 04/14/2023, Expires: 04/14/2024 Health Maintenance Due Date Last Done Comments Cologuard 1996 Colonoscopy 1996 Sigmoidoscopy 1996 Zoster Vaccines (1 of 2) 2001 Colorectal Cancer Screening 03/01/2011 Fecal Occult Blood Test 03/01/2011 03/01/2010 AAA Screening 2016 Pneumococcal Vaccine: 65+ Years (3 - PPSV23 or PCV20) 2016 02/09/2010, 02/09/2010 DTaP,Tdap,and Td Vaccines (2 - Td or Tdap) 05/17/2019 05/17/2009 Depression Screening 05/02/2021 05/02/2020 HbA1c 02/19/2023 02/19/2022, 0401/2021, 05/02/2020, Additional history exists Influenza Vaccine (FLU shot) (#1) 2023 CKD HGB USE SMARTSET 11848 07/25/202307/25, 07/25/2022, 02/19/2022, Additional history exists GFR 09/24/2023 03/25/2023, 02/24, 11/06/2022, Additional history exists Albumin/Creatinine Ratio 11/07/2023 11/06/2022, 05/10/2021 CKD PHOS USE SMARTSET 69060 11/07/202310/25, 09/30/2021, 12/31/2020, Additional history exists Lipid Panel 07/25/2027 07/25/2022, 0601/2021, 01/03/2020, Additional history exists COVID-19 Vaccine Completed [...] Documents on File Type Date Recorded 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 No Care Teams Corn Grower Relationship Specialty Start Date End Date Kd Castellon MD [address] [place] [address] [place] [address] PCP - General Family Medicine 05/03/21 documented as of this encounter
--- OUTSIDE RECORDS SUMMARY | 2023-08-27 22:02 | External Medical Summary ---
Author Name Unknown Address Unknown Organization [id number]:[facility] - [address] [facility] [address] [facility] [address] Laboratory Report Ordering Provider Test Date Status RAYMUNDO BANERJEE 03/13/2023 08:35:32 Final Observation Date Value Abnormality Reference (Units ) Status BUN 03/13/2023 08:35:32 41 Above high normal 6-20 (mg/dL) Final Creatinine 03/13/2023 08:35:32 2.4 Above high normal 0.6-1.2 (mg/dL) Final Glomerular filtration rate/1.73 sq M.predicted [Volume Rate/Area] in Serum, Plasma or Blood by Creatinine-based formula (CKD-EPI) 03/13/2023 08:35:32 28 Below low normal >=60 (mL/min) Final eGFR is calculated based on the CKD-EPI 2020 equation SODIUM 03/13/2023 08:35:32 139 135-146 (m mol/L) Final Potassium 03/13/2023 08:35:32 4.5 3.5-5.1 (m mol/L) Final Cl 03/13/2023 08:35:32 96 Below low normal 98- 107 (mmol/L) Final CO2 03/13/2023 08:35:32 32 22-32 (mmo l/L) Final Anion gap 03/13/2023 08:35:32 11 7-15 (mmol /L) Final Glucose 03/13/2023 08:35:32 106 70-120 (mg /dL) Final Calcium 03/13/2023 08:35:32 9.2 8.4-10.2 ( mg/dL) Final Performing Location [facility] - [address] [place] [address]
--- OUTSIDE RECORDS SUMMARY | 2023-08-27 22:02 | External Medical Summary | Summary of Care ---
Author Name Unknown Organization [facility] Address [address] [place] [address] Phone [phone] Care Team Providers Care Outside Sales Advertising Executive Name Role Phone Kd Castellon MD Primary Care Provider Reason for Visit * Reason Onset Date Comments Advice 03/25/2023 Encounter Details Date Type Department Care Team Description 03/25/2023 Telephone Nephrology, [address] [address] Services, Scheduling [address] [place] [address] Advice Allergies Active Allergy Reactions Severity Noted Date Comments Other - Foods Hives 02/08/2010 Mellow Yellow soda documented as of this encounter (statuses as of 03/25/2023) Medications Medication Sig Dispensed Refills Start Date [...] before bedtime. 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 Overview: Non-invasive papillary urothelial carcinoma, [place], old 11/04/2021 Overview: January 2013 Chronic kidney [...] as of this encounter (statuses as of 03/25/2023) Resolved Problems Problem Noted Date Resolved Date [...] as of this encounter (statuses as of 03/25/2023) Immunizations Name Administration Dates Next Due COVID-19 [...] encounter Miscellaneous Notes * Telephone Encounter - MICHAEL Saini - 03/25/2023 12:32 PM EDT Ovidio got a medication while in the hospital and there are no refills can someone please call him documented in this encounter Plan of Treatment Upcoming Encounters Date Type Specialty Care Team Description 05/12/2023 Office Visit Family Medicine Kd Castellon MD [address] [place] [address] [place] [address] 06/11/2023 Office Visit Nephrology Lisa Bazan PA-C [address] [place] [address] 07/01/2023 Office Visit Cardiology Sandra Armstrong IV, MD [address] [place] [address] 08/27/2023 Office Visit Cardiology Deshaun Wolf PA-C [address] [place] [address] 09/15/2023 Procedure Only Urology Yasmany Campbell MD [address] [place] [id number] Health Maintenance Due Date Last Done Comments [...] and Over 05/02/2021 05/02/2020 HbA1c 02/19/2023 02/19/2022, 04/0 01/2021, 05/02/2020, Additional history exists Influenza Vaccine (FLU shot) (#1) 2023 CKD HGB USE SMARTSET 10728 07/25/202307/25, 07/25/2022, 02/19/2022, Additional history exists GFR 09/13/2023 03/13/2023, 10/25, 07/25/2022, Additional history exists Albumin/Creatinine Ratio 11/07/2023 11/06/2022, 05/2 10/2021 CKD PHOS USE SMARTSET 26354 11/07/202310/25, 09/30/2021, 12/31/2020, Additional history exists Lipid [...] Documents on File Type Date Recorded Patient Working Second Hand Expl anation Advance Directives and Living Will 02/26/2023 ADVANCE DIRECTIVE / LIVING WILL Power of Home Demonstration Agent 02/26/2023 POWER OF A TTORNEY Latest Code [...] the patient have Health Care Power of Home Demonstration Agent? No Care Teams Outside Sales Advertising Executive Relationship Specialty Start Date End Date Kd Castellon MD [address] [place] [address] [place] [address] PCP - General Family Medicine 05/03/21 documented as of this encounter
--- OUTSIDE RECORDS SUMMARY | 2023-08-27 22:02 | External Medical Summary ---
Author Name Unknown Address Unknown Organization K01:[facility] - [address] [place] [id number] Laboratory Report Ordering Provider Test Date Status RAYMUNDO BANERJEE 03/13/2023 08:35:32 Final Observation Date Value Abnormality Reference (Units ) Status Magnesium 03/13/2023 08:35:32 2.5 1.5-2.6 (m g/dL) Final Performing Location [facility] - [address] [place] [id number]
--- OUTSIDE RECORDS SUMMARY | 2023-08-27 22:02 | External Medical Summary | Summary of Care ---
Author Name Unknown Organization [facility] Address [address] [facility] [place] [address] Phone [phone] Care Team Providers Care Congressional Representative Name Role Phone Kd Castellon MD Primary Care Provider Reason for Visit * Reason Comments Outpatient Testing Encounter Details Date Type Department Care Team Description 04/16/2023 Laboratory Laboratory [address] [place] [address] [facility] [address] [place] [address] Chronic kidney disease, stage 3b ([facility]) Allergies Active Allergy Reactions Severity Noted Date Comments Other - Foods Hives 02/08/2010 Mellow Yellow soda documented as of this encounter (statuses as of 04/16/2023) Medications Medication Sig Dispensed Refills Start Date [...] as of this encounter (statuses as of 04/16/2023) Active Problems Problem Noted Date 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 Overview: Non-invasive papillary urothelial carcinoma, [place], old 11/04/2021 Overview: January 2013 Chronic kidney [...] as of this encounter (statuses as of 04/16/2023) Resolved Problems Problem Noted Date Resolved Date Morbid obesity with BMI of 50.0-59.9, adult 0601/202102/07/2021 Overview: Per Obesity protocol Stage 3a chronic [...] as of this encounter (statuses as of 04/16/2023) Immunizations Name Administration Dates Next Due COVID-19 [...] Office Visit Family Medicine Kd Castellon MD [address] [place] [address] [place] [address] 06/11/2023 Office Visit Nephrology Lisa Bazan PA-C [address] [place] [address] 07/01/2023 Office Visit Cardiology Sandra Armstrong IV, MD [address] [place] [address] 08/27/2023 Office Visit Cardiology Deshaun Wolf PA-C [address] [place] [address] 09/15/2023 Procedure Only Urology Yasmany Campbell MD [address] [place] [address] Pending Results Name Type Priority Associated Diagnoses Date /Time BASIC METABOLIC PANEL Lab Routine Chronic kidney disease, stage 3b (HCC) 04/16/2023 10:15 AM EDT MAGNESIUM Lab Routine Chronic kidney disease, stage 3b (HCC) 04/16/2023 10:15 AM EDT Health Maintenance Due Date Last [...] shot) (#1) 2023 CKD HGB USE SMARTSET 71712 07/25/202307/25, 07/25/2022, 02/19/2022, Additional history exists GFR 09/24/2023 03/25/2023, 02/24, 11/06/2022, Additional history exists Albumin/Creatinine Ratio 11/07/2023 11/06/2022, 0510/2021 CKD PHOS USE SMARTSET 61266 11/07/202310/25, 09/30/2021, 12/31/2020, Additional history exists Lipid [...] Diagnoses Diagnosis Chronic kidney disease, stage 3b (HCC) documented in this encounter Advance Directives Documents on File Type Date Recorded Patient Server Cashier Expl anation Advance Directives and Living Will 02/26/2023 ADVANCE DIRECTIVE / LIVING WILL Power of Station Engineer Chief 02/26/2023 POWER OF A TTORNEY Latest Code [...] the patient have Health Care Power of Station Engineer Chief? No Care Teams Congressional Representative Relationship Specialty Start Date End Date Kd Castellon MD [address] [place] [address] [place] [address] PCP - General Family Medicine 05/03/21 documented as of this encounter
--- OUTSIDE RECORDS SUMMARY | 2023-08-27 22:02 | External Medical Summary | Summary of Care ---
Author Name Unknown Organization [facility] Address [address] [facility] [place] [address] Phone [phone] Care Team Providers Care China And Silverware Salesperson Name Role Phone Kd Castellon MD Primary Care Provider Reason for Visit * Reason Comments Outpatient Testing Encounter Details Date Type Department Care Team Description 03/25/2023 Laboratory Laboratory [address] [place] [address] [facility] [address] [place] [address] BPH with obstruction/lower urinary tract symptoms; Chronic kidney disease, stage 3b ([facility]) Allergies Active Allergy Reactions Severity [...] bladder 03/12/2022 Overview: Non-invasive papillary urothelial carcinoma, [place], old 11/04/2021 Overview: January 2013 Chronic kidney [...] Office Visit Family Medicine Kd Castellon MD [address] [place] [address] [place] [address] 06/11/2023 Office Visit Nephrology Lisa Bazan PA-C [address] [place] [address] 07/01/2023 Office Visit Cardiology Sandra Armstrong IV, MD [address] [place] [address] 08/27/2023 Office Visit Cardiology Deshaun Wolf PA-C [address] [place] [address] 09/15/2023 Procedure Only Urology Yasmany Campbell MD [address] [place] [address] Pending Results Name Type Priority Associated Diagnoses Date /Time BASIC METABOLIC PANEL Lab Routine Chronic kidney disease, stage 3b (HCC) 03/25/2023 10:44 AM EDT Health Maintenance Due Date Last [...] shot) (#1) 2023 CKD HGB USE SMARTSET 30512 07/25/202307/25, 07/25/2022, 02/19/2022, Additional history exists GFR 09/13/2023 03/13/2023, 10/25, 07/25/2022, Additional history exists Albumin/Creatinine Ratio 11/07/2023 11/06/2022, 11/25 CKD PHOS USE SMARTSET 88791 11/07/202310/25, 09/30/2021, 12/31/2020, Additional history exists Lipid Panel 07/25/2027 07/25/2022, 06/01/2021, 01/03/2020, Additional history exists COVID-19 Vaccine Completed [...] as of this encounter Visit Diagnoses Diagnosis BPH with obstruction/lower urinary tract symptoms Hypertrophy of prostate with urinary obstruction and other lower urinary tract symptoms (LUTS) Chronic kidney disease, stage 3b (HCC) documented in this encounter Advance Directives Documents on File Type Date Recorded Patient Data Entry Coordinator Expl anation Advance Directives and Living Will 02/26/2023 ADVANCE DIRECTIVE / LIVING WILL Power of Occupational Health And Safety Manager 02/26/2023 POWER OF A TTORNEY Latest [...] the patient have Health Care Power of Occupational Health And Safety Manager? No Care Teams China And Silverware Salesperson Relationship Specialty Start Date End Date Kd Castellon MD [address] [place] [address] [place] [address] PCP - General Family Medicine 05/03/21 documented as of this encounter
--- OUTSIDE RECORDS SUMMARY | 2023-08-27 22:02 | External Medical Summary | Summary of Care ---
Author Name Unknown Organization [facility] Address [address] [place] [address] Phone [phone] Care Team Providers Care Radiology Orderly Name Role Phone Kd Castellon MD Primary Care Provider Reason for Visit * Reason Onset Date Comments Medication Refill 03/25/2023 Encounter Details Date Type Department Care Team Description 03/25/2023 Refill Nephrology, [address] [phone] Services, Scheduling [address] [place] [address] Allergies Active Allergy Reactions Severity Noted Date [...] bladder 03/12/2022 Overview: Non-invasive papillary urothelial carcinoma, [place], old 11/04/2021 Overview: January 2013 Chronic kidney [...] as of this encounter Miscellaneous Notes * Addendum Note - Hafsa Stanford LPN - 03/25/2023 3:42 PM EDTAddended by: HAFSA STANFORD on: 03/25/2023 03:42 PM Modules accepted: Orders * Telephone Encounter - Hafsa Stanford LPN - 03/25/2023 3:39 PM EDT Spoke with pt. He stated his furosemide dose changed while in the hospital. He was told to take furosemide 80mg bid. He would like us to send in a script for this to [facility] pharmacy.\ Last ov- 03/10/23 Next ov- 06/11/23 * Telephone Encounter - MICHAEL Saini - 03/25/2023 12:32 PM EDT Ovidio got a medication while in the hospital and there are no refills can someone please call him documented in this encounter Plan of Treatment Upcoming Encounters Date Type Specialty Care Team Description 05/12/2023 Office Visit Family Medicine Kd Castellon MD [address] [place] [address] [place] [phone] 06/11/2023 Office Visit Nephrology Lisa Bazan [facility]-C [address] [facility] [phone] 07/01/2023 Office Visit Cardiology [facility] Armstrong IV, MD [address] [facility] [address] 08/27/2023 Office Visit Cardiology Deshaun Wolf PA-C [address] [place] [address] 09/15/2023 Procedure Only Urology Yasmany Campbell MD [...] shot) (#1) 2023 CKD HGB USE SMARTSET 72362 07/25/202307/25, 07/25/2022, 02/19/2022, Additional history exists GFR 09/13/2023 03/13/2023, 1 09/2022, 07/25/2022, Additional history exists Albumin/Creatinine Ratio 11/07/2023 11/06/2022, 05/2 10/2021 CKD PHOS USE SMARTSET 91217 11/07/202310/25, 09/30/2021, 12/31/2020, Additional history exists Lipid [...] Documents on File Type Date Recorded Patient Integration Software Engineer Expl anation Advance Directives and Living Will 02/26/2023 ADVANCE DIRECTIVE / LIVING WILL Power of Food And Beverage Outlets Manager 02/26/2023 POWER OF A TTORNEY Latest [...] the patient have Health Care Power of Food And Beverage Outlets Manager? No Care Teams Radiology Orderly Relationship Specialty Start Date End Date Kd Castellon MD [address] [place] [address] [place] [address] PCP - General Family Medicine 05/03/21 documented as of this encounter
--- OUTSIDE RECORDS SUMMARY | 2023-08-27 22:02 | External Medical Summary ---
Author Name Unknown Address Unknown Organization K01:[facility] [address] [facility] [address] Laboratory Report Ordering Provider Test Date Status RAYMUNDO BANERJEE 04/16/2023 10:15:09 Final Observation Date Value Abnormality Reference (Units ) Status Magnesium 04/16/2023 10:15:09 2.7 Above high normal 1. 5-2.6 (mg/dL) Final Performing Location [facility] - [address] [place] [address]
--- OUTSIDE RECORDS SUMMARY | 2023-08-27 22:02 | External Medical Summary ---
Author Name Unknown Address Unknown Organization K01:[facility] - [address] [facility] [place] [address] Laboratory Report Ordering Provider Test Date Status CUBA ÁLVAREZ 04/16/2023 10:15:09 Final Observation Date Value Abnormality Reference (Units ) Status PSA 04/16/2023 10:15:09 3.05 <4.10 (ng/ mL) Final Performing Location [facility] - [address] [place] [address]
--- OUTSIDE RECORDS SUMMARY | 2023-08-27 22:02 | External Medical Summary | Summary of Care ---
Author Name Unknown Organization [facility] Address [address] [place] [address] Phone [phone] Care Team Providers Care Intensivist Name Role Phone Edinson Prabhakar MD Primary Care Provider [phone] Reason for Visit * Reason Comments Chronic Kidney Disease (CKD) Hospital Follow-Up Encounter Details Date Type Department Care Team Description 03/10/2023 Office Visit Nephrology, Michelle [place] [address] [place] [address] Michelle Sorenson MD [address] [facility] [place] [address] History of acute renal failure*; Stage 3b chronic kidney disease (HCC); HTN, goal below 130/80; Chronic systolic heart failure (HCC); Renal atrophy, left Allergies Active Allergy Reactions Severity Noted Date Comments Other - Foods Hives 02/08/2010 Mellow Yellow soda documented as of this encounter (statuses as of 03/10/2023) Medications Medication Sig Dispensed Refills Start Date [...] as of this encounter (statuses as of 03/10/2023) Active Problems Problem Noted Date 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 Overview: Non-invasive papillary urothelial carcinoma, [place], old 11/04/2021 Overview: January 2013 Chronic kidney [...] as of this encounter (statuses as of 03/10/2023) Resolved Problems Problem Noted Date Resolved Date Morbid obesity with BMI of 50.0-59.9, adult 06/0 01/202102/07/2021 Overview: Per Obesity protocol Stage 3a [...] as of this encounter (statuses as of 03/10/2023) Immunizations Name Administration Dates Next Due COVID-19 [...] Sign Reading Time Taken Comments Blood Pressure 112/63 03/10/2023 2:03 PM EDT Pulse 66 03/10/2023 2:03 PM EDT Temperature 36.2 C (97.2 F) 03/10/2023 2:03 PM ED T Respiratory Rate 18 03/10/2023 2:03 PM EDT Oxygen Saturation 94% 03/10/2023 2:03 PM EDT Inhaled Oxygen Concentration - - Weight 154.7 kg (341 lb) 03/10/2023 2:03 PM EDT Height - - Body Mass Index 46.9 [...] No 01/02/2020 documented as of this encounter Patient Instructions * Patient Instructions* Michelle Sorenson MD - 03/10/2023 2:36 PM EDT -no medication changes today -check labs in [place] in the next 2 days -avoid medicines like aleve, advil, ibuprofen, aspirin more than 81 mg daily and other NSAIDS whichare not good for kidney patients. Take only tylenol (acetaminophen) up to 2000 mg daily as needed for pain or as directed by your primary care provider. -continue low sodium diet documented in this encounter Progress Notes * Michelle Sorenson MD - 03/10/2023 2:06 PM EDT NEPHROLOGY CLINIC NOTE Nephrology, Michelle [place] [address] [place] [address] 03/10/2023, 2:07 PM Patient Name: Nolan Sakshi BACKGROUND: 72 year old male presents for follow-up of [facility] consultation for acute kidney injury where he was admitted from February 19 to February 25 for same in the setting of acute on chronic systolic heart failure. 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 Unknown stone composition. [facility]: underwent cystoscopy earlier today in [...] me he weighed 337 lb on leaving [facility]; feels edema controlled. Not SOB. Does daily standing wts at home >> 341.2 lb this am. No orthostatic/presyncopal sx REVIEW OF SYSTEMS: No F/C, unintended wt changes, energy level and appetite acceptable No acute visual changes or CARCAMO No sinus, dental, throat pain No neck lumps/bumps or stiffness No palpitations, angina, orthopnea, LE edema No cough, wheeze, or dyspnea No N/V/D/C/abd pain No dysuria; some post procedure gross hematuria, nocturia >2X; no new/worrisome voiding sx No rash or generalized itch No focal joint/muscle aches No inappropriate bleeding or bruising No tremor, seizures, focal or global weakness or paresthesias No presyncopal or orthostatic symptoms; no falls Current Outpatient Medications Medication Sig Dispense Refill MAG-OXIDE 400 MG PO TABS 1 TABLETS DAILY 34 Tab 11 Tylenol 325 MG Oral Capsule (Acetaminophen) Take by mouth. Amiodarone HCl 200 MG Oral Tablet (Cordarone) Take by mouth 1.5 Tablets in the morning. 180 Tablet 3 Atorvastatin Calcium 40 MG Oral Tablet (Lipitor) TAKE ONE TABLET BY MOUTH AT BEDTIME 90 Tablet 2 Metoprolol Succinate ER 200 MG Oral Tablet Extended Release 24 Hour Take 1 Tablet (200 mg) by mouthat bedtime. 90 Tablet 3 Tadalafil 5 MG Oral Tablet (Cialis) Take 1 Tablet by mouth daily as needed for Erectile Dysfunction. 90 Tablet 3 Furosemide 40 MG Oral Tablet (Lasix) TAKE ONE TABLET BY MOUTH TWICE DAILY (Patient taking differently: 2 Tablets in the morning and 2 Tablets before bedtime.) 180 Tablet 3 Lisinopril 5 MG Oral Tablet (Prinivil) Take by mouth 1 Tablet in the morning. (Patient not taking: Reported on 03/10/2023) 90 Tablet 3 No current facility-administered medications for this visit. PHYSICAL EXAMINATION: BP Readings from Last 6 Encounters: 03/10/23 112/63 11/06/22 138/80 09/09/22 102/64 05/28/22 120/70 05/14/22 142/76 03/12/22 139/85 Wt Readings from Last 6 Encounters: 03/10/23 (!) 154.7 kg (341 lb) 11/06/22 (!) 163.5 kg (360 lb 8 oz) 09/09/22 (!) 162.8 kg (358 lb 14.4 oz) 05/28/22 (!) 158.7 kg (349 lb 14.4 oz) 05/14/22 (!) 158.8 kg (350 lb) 03/12/22 (!) 151.5 kg (334 lb) Pulse Readings from Last 6 Encounters: 03/10/23 66 11/06/22 80 09/09/22 64 05/28/22 66 05/14/22 80 03/12/22 64 NAD, oriented x 3, ambulatory w/ cane, obese Normocephalic, atraumatic, eomi nonicteric sclerae MMM Supple neck RRR w/o m/g/r; 2-3++ edema to knees BL, worse ankles CTAB w/ reduced air mvt NT abd, +BS, soft No cyanosis or clubbing No rash No tremor, focal or global weakness; fluent speech, good history; challenging to get up from seatedposition LABS: Recent Labs Units 11/06/22 1103 07/25/22 0937 02/19/22 1040 SODIUM - [facility] mmol/L 142 139 142 POTASSIUM - [facility] mmol/L 4.9 4.6 4.8 CHLORIDE - [facility] mmol/L 101 96* 100 CO2 - [facility] mmol/L 32 37* 31 BUN - [facility] mg/dL 42* 34* 25* CREATININE - [facility] mg/dL 2.2* 1.9* 1.8* ESTIMATED GLOMERULAR FILTRATION RATE - [facility] mL/min 32* 38* 40* Recent Labs Units 07/25/22 0937 02/19/22 1040 12/11/21 0000 HGB - [facility] g/dL 13.8* 14.3 -- HEMOGLOBIN-OUTSIDE LAB G/DL -- -- 13.6* Recent Labs Units 11/06/22 1103 07/25/22 0937 02/19/22 1040 12/17/21 1106 09/30/21 1118 CALCIUM - [facility] mg/dL 9.0 9.2 9.3 < > 8.9 PHOSPHORUS - [facility] mg/dL 3.5 -- -- -- 3.0 < > = values in this interval not displayed. Recent Labs Units 02/19/22 1040 HEMOGLOBIN A1C - [facility] % 5.9* Recent Labs Units 11/06/22 1103 12/17/21 1106 ALBUMIN / CREATININE RATIO, URINE - [facility] mg/g Creat <24 <13 Recent Labs Units 12/11/21 0000 PROTEIN, UA-OUTSIDE LAB TRACE* CT a/p 07/2022 LIVER: Unremarkable BILE DUCTS: Unremarkable GALLBLADDER: Unremarkable [...] Demineralized bones. Multilevel vacuum disc phenomenon. IMPRESSION 1. Substantial decrease in perinephric hematoma now up to 2.1 cm in transverse dimension previouslyup to 6.1 cm. 2. Unremarkable appearing bladder on this non-contrast study. CT a/p non con 01/2023 [facility] ABDOMEN: Liver: Unremarkable. Gallbladder and bile ducts: Layering sludge in the gallbladder. No calcified stones. No ductal dilation. Pancreas: Unremarkable. No ductal dilation. Spleen: Unremarkable. No splenomegaly. Adrenals: Unremarkable. No mass. Kidneys and ureters: Scarring/atrophy of the LEFT kidney. No hydronephrosis. Renal cysts. Stomach and bowel: Diverticulosis, without acute diverticulitis. No small bowel obstruction. No free intraperitoneal air. PELVIS: Appendix: Normal appendix. Bladder: Unremarkable. No stones. Normal urinary bladder. Reproductive: Unremarkable as visualized. ABDOMEN and PELVIS: Intraperitoneal space: Unremarkable. No free air. No significant fluid collection. Bones/joints: Degenerative changes of the spine. No acute fracture. No dislocation. Soft tissues: Unremarkable. Vasculature: Atherosclerotic changes of the aorta. No abdominal aortic aneurysm. Lymph nodes: Unremarkable. No enlarged lymph nodes. Tubes, lines and devices: Pacemaker leads. IMPRESSION: 1. Normal appendix. 2. Scarring/atrophy of the LEFT kidney. No hydronephrosis. 3. Diverticulosis, without acute diverticulitis. No small bowel obstruction. No free intraperitoneal air. 4. Layering sludge in the gallbladder. ASSESSMENT AND PLAN: History of acute renal failure (Primary) - BASIC METABOLIC PANEL; Future; Expected date: 03/10/2023 - [facility] Stage 3b chronic kidney disease (HCC) - BASIC METABOLIC PANEL; Future; Expected date: 03/10/2023 - [facility] HTN, goal below 130/80 Chronic systolic heart failure (HCC) Renal atrophy, left Follow Up: Return in about 10 weeks (around 05/19/2023) for clinic visit w/ [place], clinic visit w/ .| For: clinic visit w/ [place], clinic visit w/ | Check-out note: Waitlist F/u in [facility] History of stage 1 THANH nonoliguric w/ acceptable chemistries. D/c from [facility] w/ creatinine 2.7 and K4.3 on 02/25; no interval labs. Likely now to be CKD 4 but will await f/u labs on obligate increased diuretics He is unwilling to update labs today. Still floridly overloaded but able to ambulate and feels wt is ok, no acute SOB. Acceptable compensation -cont current lasix dose -cont to hold lisinopril -update labs -close in f/u HTN w/ acceptable control on lasix and metoprolol. Cont same Compenated HF; cont home daily wts, low Na diet. Not on FR and may need to consider Imaging at [facility] notes renal atrophy at site of former hematoma; monitor Patient Instructions -no medication changes today -check labs in [facility] in the next 2 days -avoid medicines like aleve, advil, ibuprofen, aspirin more than 81 mg daily and other NSAIDS whichare not good for kidney patients. Take only tylenol (acetaminophen) up to 2000 mg daily as needed for pain or as directed by your primary care provider. -continue low sodium diet Michelle Sorenson MD Nephrology, [address] [address] CC: Ref: EDINSON PRABHAKAR[[id number]] [address] [place] [address] [place] [phone] (office) [phone] (fax) PCP: EDINSON PRABHAKAR [address] [place] [address] [place] [address] [phone] This chart was completed in part utilizing [employer] Direct Speech Voice Recognition Software. Randomword insertions, pronoun errors, and incomplete sentences are an occasional consequence of this system due to software limitations, and ambient noise. Any questions or concerns about the content, text, or information contained within the body of this dictation should be directly addressed to the provider for clarification. documented in this encounter Nursing Notes * Fatmata Abdul RN - 03/10/2023 2:03 PM EDT Hospital discharge visit today. States he was admitted for edema. Was sent to rehab and had subsequent admission due to fluid returning. documented in this encounter Plan of Treatment Upcoming Encounters Date Type Specialty Care Team Description 05/12/2023 Office Visit Family Medicine Edinson Prabhakar MD [address] [place] [address] [place] [phone] 06/11/2023 Office Visit Nephrology Lisa Bazan PA-C [address] [place] [address] 07/01/2023 Office Visit Cardiology Sandra Armstrong IV, MD [address] [place] [address] 08/27/2023 Office Visit Cardiology Deshaun Wolf PA-C [address] [place] [address] 09/15/2023 Procedure Only Urology Yasmany Campbell MD [address] [place] [address] [place] [address] Scheduled Orders Name Type Priority Associated Diagnoses Orde r Schedule BASIC METABOLIC PANEL Lab Routine History of acute renal failure Stage 3b chronic kidney disease (HCC) Expected: 03/10/2023 (Approximate), Expires: 03/10/2024 [facility] Lab Routine History of acute renal failure Stage 3b chronic kidney disease (HCC) Ordered: 03/10/2023 Health Maintenance Due Date Last Done Comments [...] Influenza Vaccine (FLU shot) (#1) 2023 GFR 05/08/2023 11/06/2022, 06/28, 02/19/2022, Additional history exists CKD HGB USE SMARTSET 57584 07/25/202307/25, 07/25/2022, 02/19/2022, Additional history exists Albumin/Creatinine Ratio 11/07/2023 11/06/2022, 11/25 CKD PHOS USE SMARTSET 95213 11/07/202310/25, 09/30/2021, 12/31/2020, Additional history exists Lipid [...] as of this encounter Visit Diagnoses Diagnosis History of acute renal failure- Primary Personal history of other disorder of urinary system Stage 3b chronic kidney disease (HCC) HTN, goal below 130/80 Unspecified essential hypertension Chronic systolic heart failure (HCC) Chronic systolic heart failure Renal atrophy, left Renal sclerosis, unspecified documented in this encounter Advance Directives Latest Code Status on File Code Status [...] the patient have Health Care Power of Broacher? No Care Teams Intensivist Relationship Specialty Start Date End Date Edinson Prabhakar MD [address] [place] [address] [place] [phone] PCP - General Family Medicine 05/03/21 documented as of this encounter"
--- OUTSIDE RECORDS SUMMARY | 2023-08-27 22:02 | External Medical Summary | Summary of Care ---
Author Name Unknown Organization [facility] Address [address] [facility] [place] [address] Phone [phone] Care Team Providers Care Car Runner Name Role Phone Kd Castellon MD Primary Care Provider Reason for Visit * Reason Comments Outpatient Testing Encounter Details Date Type Department Care Team Description 03/25/2023 Laboratory Laboratory [address] [place] [address] [facility] [address] [place] [address] BPH with obstruction/lower urinary tract symptoms; Chronic kidney disease, stage 3b ([facility]) Allergies Active Allergy Reactions Severity Noted Date [...] bladder 03/12/2022 Overview: Non-invasive papillary urothelial carcinoma, [place], old 11/04/2021 Overview: January 2013 Chronic kidney [...] Office Visit Family Medicine Kd Castellon MD [address] [place] [address] [place] [phone] 06/11/2023 Office Visit Nephrology Lisa Bazan PA-C [address] [place] [address] 07/01/2023 Office Visit Cardiology Sandra Armstrong IV, MD [address] [place] [address] 08/27/2023 Office Visit Cardiology Deshaun Wolf PA-C [address] [place] [address] 09/15/2023 Procedure Only Urology Yasmany Campbell MD [...] shot) (#1) 2023 CKD HGB USE SMARTSET 14221 07/25/202307/25, 07/25/2022, 02/19/2022, Additional history exists GFR 09/13/2023 03/13/2023, 10/25, 07/25/2022, Additional history exists Albumin/Creatinine Ratio 11/07/2023 11/06/2022, 11/25 CKD PHOS USE SMARTSET 77752 11/07/202310/25, 09/30/2021, 12/31/2020, Additional history exists Lipid [...] on File Type Date Recorded Patient Software Reliability Engineer Expl anation Advance Directives and Living Will 02/26/2023 ADVANCE DIRECTIVE / LIVING WILL Power of Gimp Tacker 02/26/2023 POWER OF A TTORNEY Latest Code [...] the patient have Health Care Power of Gimp Tacker? No Care Teams Car Runner Relationship Specialty Start Date End Date Kd Castellon MD [address] [place] [address] [place] [address] PCP - General Family Medicine 05/03/21 documented as of this encounter
--- OUTSIDE RECORDS SUMMARY | 2023-08-27 22:02 | External Medical Summary | Summary of Care ---
Author Name Unknown Organization [facility] Address [address] [place] [address] Phone [phone] Care Team Providers Care Set And Exhibit Designer Name Role Phone Kd Castellon MD Primary Care Provider [phone] Reason for Visit * Reason Onset Date Comments case management 03/13/2023 Advance Directiv es Encounter Details Date Type Department Care Team Description 03/13/[address] [address] Sheila Vizcaino, RN [address] [place] [address] case management (Advance Directives) Allergies Active Allergy Reactions Severity Noted Date Comments Other - Foods Hives 02/08/2010 Mellow Yellow soda documented as of this encounter (statuses as of 03/13/2023) Medications Medication Sig Dispensed Refills Start Date [...] as of this encounter (statuses as of 03/13/2023) Active Problems Problem Noted Date 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 Overview: Non-invasive papillary urothelial carcinoma, [place], old 11/04/2021 Overview: January 2013 Chronic kidney [...] as of this encounter (statuses as of 03/13/2023) Resolved Problems Problem Noted Date Resolved Date [...] as of this encounter (statuses as of 03/13/2023) Immunizations Name Administration Dates Next Due COVID-19 [...] encounter Miscellaneous Notes * Telephone Encounter - Sheila Vizcaino RN - 03/13/2023 9:54 AM EDT Patient dropped off his completed Advance Directive forms at the clinic. - health care agent: Valoriesandra Cantor (niece) - 1st alternate: Jeanne Troy (niece) End of life situation - does not want: CPR, mechanical ventilator, dialysis, chemotherapy, radiation, tube feedings - does want surgery, antibiotics Originals mailed back to patient with instructions to keep in a safe place. documented in this encounter Plan of Treatment Upcoming Encounters Date Type Specialty Care Team Description 05/12/2023 Office Visit Family Medicine Kd Castellon MD [address] [place] [address] [place] [phone] 06/11/2023 Office Visit Nephrology Lisa Bazan PA-C [address] [place] [address] 07/01/2023 Office Visit Cardiology Sandra Armstrong IV, MD [address] [place] [address] 08/27/2023 Office Visit Cardiology Deshaun Wolf PA-C [address] [place] [address] 09/15/2023 Procedure Only Urology Yasmany Campbell MD [...] Additional history exists CKD HGB USE SMARTSET 96633 07/25/202307/25, 07/25/2022, 02/19/2022, Additional history exists Albumin/Creatinine Ratio 11/07/2023 11/06/2022, /10/2021 CKD PHOS USE SMARTSET 99231 11/07/202310/25, 09/30/2021, 12/31/2020, Additional history exists Lipid [...] filedocumented as of this encounter Advance Directives Latest Code Status [...] the patient have Health Care Power of Body Hanger? No Care Teams Set And Exhibit Designer Relationship Specialty Start Date End Date Kd Castellon MD [address] [place] [address] [place] [address] PCP - General Family Medicine 05/03/21 documented as of this encounter
--- OUTSIDE RECORDS SUMMARY | 2023-08-27 22:02 | External Medical Summary | Summary of Care ---
Author Name Unknown Organization [facility] Address [address] [place] [address] Phone [phone] Care Team Providers Care Wet Room Supervisor Name Role Phone Kd Castellon MD Primary Care Provider [phone] Reason for Visit * Reason Onset Date Comments Medication Refill 03/25/2023 Encounter Details Date Type Department Care Team Description 03/25/2023 Refill Nephrology, [address] [address] Services, Scheduling [address] [place] [address] Allergies Active Allergy Reactions Severity Noted Date Comments Other - Foods Hives 02/08/2010 Mellow Yellow soda documented as of this encounter (statuses as of 03/26/2023) Medications Medication Sig Dispensed Refills Start Date End Date Status MAG-OXIDE 400 MG PO TABSIndications:Idi opathic cardiomyopathy (HCC),Sleep apnea 1 TABLETS DAILY 34 Tab 11 03/08/2011 Active Tylenol 325 MG Oral Capsule (Acetaminophen) Take by mouth. 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 180 Tablet 3 03/25/2023 Active Furosemide 40 MG Oral Tablet (Lasix) Take 1 Tablet by mouth in the morning and 1 Tablet before bedtime. 180 Tablet 3 03/23/2023 3 Discontinu ed(Refill) documented as of this encounter (statuses as of 03/26/2023) Active Problems Problem Noted Date 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 Overview: Non-invasive papillary urothelial carcinoma, [place], old 11/04/2021 Overview: January 2013 Chronic kidney [...] as of this encounter (statuses as of 03/26/2023) Resolved Problems Problem Noted Date Resolved Date [...] as of this encounter (statuses as of 03/26/2023) Immunizations Name Administration Dates Next Due COVID-19 [...] encounter Miscellaneous Notes * Telephone Encounter - Hafsa Stanford LPN - 03/26/2023 8:10 AM EDTSigned Prescriptions: Disp Refills Furosemide 80 MG Oral Tablet (Lasix) 180 Ta*3 Sig: Take 1 Tablet by mouth in the morning and 1 Tablet before bedtime.Authorizing Provider: CHRISS FONSECA----- * Telephone Encounter - Hafsa Stanford LPN - 03/26/2023 8:09 AM EDT Spoke with pharmacy to cancel furosemide 40mg rx. * Telephone Encounter - Chriss Fonseca MD - 03/25/2023 4:22 PM EDTSigned Prescriptions: Disp Refills Furosemide 80 MG Oral Tablet (Lasix) 180 Ta*3 Sig: Take 1 Tabletby mouth in the morning and 1 Tablet before bedtime.Authorizing Provider: CHRISS FONSECA------ * Addendum Note - Hafsa Stanford LPN [...] send in a script for this to [facility] pharmacy.\ Last ov- 03/10/23 Next ov- 06/11/23 * Telephone Encounter - MICHAEL Saini - 03/25/2023 12:32 PM EDT Ovidio got a medication while in the hospital and there are no refills can someone please call him documented in this encounter Plan of Treatment Upcoming Encounters Date Type Specialty Care Team Description 05/12/2023 Office Visit Family Medicine Kd Castellon MD [address] [place] [address] [place] [phone] 06/11/2023 Office Visit Nephrology Lisa Bazan PA-C [address] [place] [address] 07/01/2023 Office Visit Cardiology Sandra Armsrtong IV, MD [address] [place] [address] 08/27/2023 Office Visit Cardiology Deshaun Wolf PA-C [address] [facility] [place] [address] 09/15/2023 Procedure Only Urology Yasmany Campbell MD [...] shot) (#1) 2023 CKD HGB USE SMARTSET 39959 07/25/202307/25, 07/25/2022, 02/19/2022, Additional history exists GFR 09/24/2023 03/25/2023, 02/24, 11/06/2022, Additional history exists Albumin/Creatinine Ratio 11/07/2023 11/06/2022, 11/25 CKD PHOS USE SMARTSET 88707 11/07/202310/25, 09/30/2021, 12/31/2020, Additional history exists Lipid [...] Documents on File Type Date Recorded Patient Locker Attendant Expl anation Advance Directives and Living Will 02/26/2023 ADVANCE DIRECTIVE / LIVING WILL Power of Sql Server Developer 02/26/2023 POWER OF A TTORNEY Latest [...] the patient have Health Care Power of Sql Server Developer? No Care Teams Wet Room Supervisor Relationship Specialty Start Date End Date Kd Castellon MD [address] [place] [address] [place] [address] PCP - General Family Medicine 05/03/21 documented as of this encounter
--- OUTSIDE RECORDS SUMMARY | 2023-08-27 22:02 | External Medical Summary | Summary of Care ---
Author Name Unknown Organization [facility] Address [address] [facility] [place] [address] Phone [phone] Care Team Providers Care Seismic Prospecting Observer Name Role Phone Kd Castellon MD Primary Care Provider Reason for Visit * Reason Comments Outpatient Testing Encounter Details Date Type Department Care Team Description 03/13/2023 Laboratory Laboratory [address] [place] [id number] [facility] [address] [place] [id number] History of acute renal failure; Stage 3b chronic kidney disease (HCC) Allergies Active Allergy Reactions Severity Noted [...] bladder 03/12/2022 Overview: Non-invasive papillary urothelial carcinoma, NM, old 11/04/2021 Overview: January 2013 Chronic kidney [...] Office Visit Family Medicine Kd Castellon MD [address] [place] [address] [place] [id number] 06/11/2023 Office Visit Nephrology Lisa Bazan PA-C [address] [place] [address] 07/01/2023 Office Visit Cardiology Sandra Armstrong IV, MD [address] [place] [address] 08/27/2023 Office Visit Cardiology Deshaun Wolf PA-C [address] [place] [address] 09/15/2023 Procedure Only Urology Yasmany Campbell MD [address] [place] [address] Pending Results Name Type Priority Associated Diagnoses Date /Time BASIC METABOLIC PANEL Lab Routine History of acute renal failure Stage 3b chronic kidney disease (HCC) 03/13/2023 8:35 AM EDT Health Maintenance Due Date Last [...] Additional history exists CKD HGB USE SMARTSET 60631 07/25/202307/25, 07/25/2022, 02/19/2022, Additional history exists Albumin/Creatinine Ratio 11/07/2023 11/06/2022, 05/2 10/2021 CKD PHOS USE SMARTSET 65513 11/07/202310/25, 09/30/2021, 12/31/2020, Additional history exists Lipid Panel 07/25/2027 07/25/2022, 060 01/2021, 01/03/2020, Additional history exists COVID-19 Vaccine [...] Visit Diagnoses Diagnosis History of acute renal failure Personal history of other disorder of urinary system Stage 3b chronic kidney disease (HCC) documented in this encounter Advance Directives Latest [...] the patient have Health Care Power of Dental Secretary? No Care Teams Seismic Prospecting Observer Relationship Specialty Start Date End Date Kd Castellon MD [address] [place] [address] [place] [address] PCP - General Family Medicine 05/03/21 documented as of this encounter
--- OUTSIDE RECORDS SUMMARY | 2023-08-27 22:02 | External Medical Summary | Summary of Care ---
Author Name Unknown Organization [facility] Address [address] [place] [address] Phone [phone] Care Team Providers Care Computer Aide Name Role Phone Kd Castellon MD Primary Care Provider Reason for Visit * Reason Onset Date Comments Medication Question 04/01/2023 Encounter Details Date Type Department Care Team Description 04/01/2023 Telephone Family Medicine [address] [phone] Kd Castellon MD [address] [place] [address] [place] [address] Medication Question Allergies Active Allergy Reactions Severity Noted Date Comments Other - Foods Hives 02/08/2010 Mellow Yellow soda documented as of this encounter (statuses as of 04/01/2023) Medications Medication Sig Dispensed Refills Start Date [...] before bedtime. 180 Tablet 3 03/25/2023 Active documented as of this encounter (statuses as of 04/01/2023) Active Problems Problem Noted Date Cancer of [...] as of this encounter (statuses as of 04/01/2023) Resolved Problems Problem Noted Date Resolved Date [...] as of this encounter (statuses as of 04/01/2023) Immunizations Name Administration Dates Next Due COVID-19 [...] encounter Miscellaneous Notes * Telephone Encounter - Chayo Abrams, [facility] - 04/01/2023 11:37 AM EDT Asking which OTC for a cold currently with runny nose and congestions, deny fever. Little wheezy Recommend zyrtec. mucinex and Flonase nasal spray for running and stuffy nose. Stay hydrated with fluids. Thank you, Chayo Abrams [facility] Clinical Pharmacist [facility] ([facility]) (formerly Telepharmacy) 04/01/23 11:44 AM [phone] * Telephone Encounter - KENA Regalado - 04/01/2023 11:35 AM EDT Pt called to see what otc medications he can take. Warm transferred to jacqueline Domingo. Thanks, Shruthi [place] Timber Poisoner [facility] ([facility]) 04/01/2023,11:36 AM documented in this encounter Plan of Treatment Upcoming Encounters Date Type Specialty Care Team Description 05/12/2023 Office Visit Family Medicine Kd Castellon MD [address] [place] [address] [place] [address] 06/11/2023 Office Visit Nephrology Lisa Bazan PA-C [address] [place] [address] 07/01/2023 Office Visit Cardiology [facility], [facility] [address] [facility] [address] 08/27/2023 Office Visit Cardiology Deshaun Wolf PA-C [address] [place] [address] 09/15/2023 Procedure Only Urology Yasmany Campbell MD [...] shot) (#1) 2023 CKD HGB USE SMARTSET 40596 07/25/202307/25, 07/25/2022, 02/19/2022, Additional history exists GFR 09/24/2023 03/25/2023, 02/24, 11/06/2022, Additional history exists Albumin/Creatinine Ratio 11/07/2023 11/06/2022, 11/25 CKD PHOS USE SMARTSET 93032 11/07/202310/25, 09/30/2021, 12/31/2020, Additional history exists Lipid [...] Documents on File Type Date Recorded Patient Livestock Nutrition Territory Manager Expl anation Advance Directives and Living Will 02/26/2023 ADVANCE DIRECTIVE / LIVING WILL Power of Dehydration Unit Operator 02/26/2023 POWER OF A TTORNEY Latest Code [...] the patient have Health Care Power of Dehydration Unit Operator? No Care Teams Computer Aide Relationship Specialty Start Date End Date Kd Castellon MD [address] [place] [address] [place] [address] PCP - General Family Medicine 05/03/21 documented as of this encounter
--- OUTSIDE RECORDS SUMMARY | 2023-08-27 22:02 | External Medical Summary ---
Author Name Unknown Address Unknown Organization [id number][place] [place] [address] [facility] [address] Laboratory Report Ordering Provider Test Date Status RAYMUNDO BANERJEE 03/25/2023 10:44:40 Final Observation Date Value Abnormality Reference (Units ) Status BUN 03/25/2023 10:44:40 49 Above high normal 6-20 (mg/dL) Final Creatinine 03/25/2023 10:44:40 2.6 Above high normal 0.6-1.2 (mg/dL) Final Glomerular filtration rate/1.73 sq M.predicted [Volume Rate/Area] in Serum, Plasma or Blood by Creatinine-based formula (CKD-EPI) 03/25/2023 10:44:40 26 Below low normal >=60 (mL/min) Final eGFR is calculated based on the CKD-EPI 2020 equation SODIUM 03/25/2023 10:44:40 140 135-146 (m mol/L) Final Potassium 03/25/2023 10:44:40 4.7 3.5-5.1 (m mol/L) Final Cl 03/25/2023 10:44:40 96 Below low normal 98- 107 (mmol/L) Final CO2 03/25/2023 10:44:40 29 22-32 (mmo l/L) Final Anion gap 03/25/2023 10:44:40 15 7-15 (mmol /L) Final Glucose 03/25/2023 10:44:40 112 70-120 (mg /dL) Final Calcium 03/25/2023 10:44:40 8.9 8.4-10.2 ( mg/dL) Final Performing Location [facility] [place] [address] [facility] [address]
--- OUTSIDE RECORDS SUMMARY | 2023-08-27 22:02 | External Medical Summary | Summary of Care ---
Author Name Unknown Organization [facility] Address [address] [place] [address] Phone [phone] Care Team Providers Care Vehicle Body Builder Name Role Phone Kd Prabhakar MD Primary Care Provider Reason for Visit * Reason Comments eRx-Medication Refill Encounter Details Date Type Department Care Team Description 04/08/2023 Refill Family Medicine [address] [address] Kd Prabhakar MD [address] [place] [address] [place] [id number] Prediabetes; Dyslipidemia, goal LDL below 70; Non-ischemic cardiomyopathy (HCC) Allergies Active Allergy Reactions Severity Noted Date Comments Other - Foods Hives 02/08/2010 Mellow Yellow soda documented as of this encounter (statuses as of 04/09/2023) Medications Medication Sig Dispensed Refills Start Date End Date Status MAG-OXIDE 400 MG PO TABSIndications:Idi opathic cardiomyopathy (HCC),Sleep apnea 1 TABLETS DAILY 34 Tab 11 1 Active Tylenol 325 MG Oral Capsule (Acetaminophen) Take by mouth. 0 Activ e Lisinopril 5 MG Oral Tablet (Prinivil)Indicatio ns:Prediabetes,Insole Filler savannah systolic heart failure (HCC),Chronic kidney disease, stage 3b (HCC) Take by mouth 1 Tablet in the morning. 90 Tablet 3 2 Active Additional Information Patient not taking.Reported on 03/10/2023 Amiodarone HCl 200 MG Oral Tablet (Cordarone)Indicati ons:Ventricular arrhythmia Take by mouth 1.5 Tablets in the morning. 180 Tablet 3 2 Active Metoprolol Succinate ER 200 MG Oral Tablet Extended Release 24 Hour Take 1 Tablet (200 mg) by mouth at bedtime. 90 Tablet 3 2 Active Tadalafil 5 MG Oral Tablet (Cialis) Take 1 Tablet by mouth daily as needed for Erectile Dysfunction. 90 Tablet 3 3 Active Furosemide 80 MG Oral Tablet (Lasix) Take 1 Tablet by mouth in the morning and 1 Tablet before bedtime. 180 Tablet 3 3 Active Atorvastatin Calcium 40 MG Oral Tablet (Lipitor)Indication s:Prediabetes,Dysli pidemia, goal LDL below 70,Non-ischemic cardiomyopathy (HCC) TAKE ONE TABLET BY MOUTH AT BEDTIME 90 Tablet 1 3 Active Atorvastatin Calcium 40 MG Oral Tablet (Lipitor)Indication s:Prediabetes,Dysli pidemia, goal LDL below 70,Non-ischemic cardiomyopathy (HCC) TAKE ONE TABLET BY MOUTH AT BEDTIME 90 Tablet 2 2 04/09/20 23 Discontinued documented as of this encounter (statuses as of 04/09/2023) Active Problems Problem Noted Date Cancer of [...] as of this encounter (statuses as of 04/09/2023) Resolved Problems Problem Noted Date Resolved Date Morbid obesity with BMI of 50.0-59.9, adult 06/01/202102/07/2021 Overview: Per Obesity protocol Stage 3a chronic [...] as of this encounter (statuses as of 04/09/2023) Immunizations Name Administration Dates Next Due COVID-19 [...] encounter Miscellaneous Notes * Telephone Encounter - Maria T Lozano [facility] - 04/09/2023 1:30 PM EDTSigned Prescriptions: Disp Refills Atorvastatin Calcium 40 MG Oral Tablet (Li*90 Tab*1 Sig: TAKE ONE TABLET BY MOUTH AT BEDTIMEAuthorizing Provider: KD PRABHAKAR AOrdering User: MARIA T LOZANO-- documented in this encounter Plan of Treatment Upcoming Encounters Date Type Specialty Care Team Description 05/12/2023 Office Visit Family Medicine Kd Prabhakar MD [address] [place] [address] [place] [phone] 06/11/2023 Office Visit Nephrology Lisa Bazan PA-C [address] [place] [address] 07/01/2023 Office Visit Cardiology Sandra Armstrong IV, MD [address] [place] [address] 08/27/2023 Office Visit Cardiology Deshaun Wolf PACurtis [address] [facility] [place] [address] 09/15/2023 Procedure Only Urology Yasmany [...] Depression Screening 05/02/2021 05/02/2020 HbA1c 02/19/2023 02/19/2022, 040 01/2021, 05/02/2020, Additional history exists Influenza Vaccine (FLU shot) (#1) 2023 CKD HGB USE SMARTSET 96497 07/25/202307/25, 07/25/2022, 02/19/2022, Additional history exists GFR 09/24/2023 03/25/2023, 02/24, 11/06/2022, Additional history exists Albumin/Creatinine Ratio 11/07/2023 11/06/2022, 05/2 10/2021 CKD PHOS USE SMARTSET 61531 11/07/202310/25, 09/30/2021, 12/31/2020, Additional history exists Lipid [...] Visit Diagnoses Diagnosis Prediabetes Other abnormal glucose Dyslipidemia, goal LDL below 70 Other and unspecified hyperlipidemia Non-ischemic cardiomyopathy (HCC) Other primary cardiomyopathies documented in this encounter Advance Directives Documents on File Type Date Recorded Patient Tentering Machine Feeder Expl anation Advance Directives and Living Will 02/26/2023 ADVANCE DIRECTIVE / LIVING WILL Power of Coil Finisher 02/26/2023 POWER OF A TTORNEY Latest Code [...] the patient have Health Care Power of Coil Finisher? No Care Teams Vehicle Body Builder Relationship Specialty Start Date End Date Kd Prabhakar MD [address] [place] [address] [place] [phone] PCP - General Family Medicine 05/03/21 documented as of this encounter
--- OUTSIDE RECORDS SUMMARY | 2023-08-27 22:02 | External Medical Summary ---
Author Name Unknown Address Unknown Organization K01:[facility]ORY [facility] [place] - [address] [place] [address] Laboratory Report Ordering Provider Test Date Status AKI NEVES 05/12/2023 10:00:47 Final Exclude Heart Failure: <300 pg/mL
Diagnose Heart Failure:
Age <50 yr: >450 pg/mL
50-75 yr: >900 pg/mL
>75 yr: >1800 pg/mL
GFR is 30-59 mL/min: >1200 pg/mL or Age- adjusted values
GFR <30 mL/min: do not use, not reliable

Prognostic threshold: 1000 pg/mL Observation Date Value Abnormality Reference (Units ) Status BNP, Pro-hormone 05/12/2023 10:00:47 1237 Above high no rmal <300 (pg/mL) Final Performing Location [facility] [place] - [facility] [address] [place] [address]
--- OUTSIDE RECORDS SUMMARY | 2023-08-27 22:03 | External Medical Summary | Summary of Care ---
Author Name Unknown Organization [facility] Address [address] [place] [address] Phone [phone] Care Team Providers Care Rocket Motor Tester Name Role Phone Edinson Prabhakar MD Primary Care Provider Reason for Visit * Reason Comments Cystoscopy Encounter Details Date Type Department Care Team Description 03/10/2023 Procedure Only Urology, [facility] [address] [facility] [place] [address] Yasmany Campbell MD [facility] [address] [place] [address] Bladder mass*; Hematuria, gross; BPH with obstruction/lower urinary tract symptoms; Bladder cancer screening Allergies Active Allergy Reactions Severity Noted Date [...] differently: 80 mg BID(AM/PM), Reported on 03/10/2023 Hospital, Clinic, or Other Facility Administered Medication Ordered Dose Route Frequency Start Date End Date Status sulfamethoxazole-trim ethoprim DS (Bactrim DS) 800-160 MG 1 TabletIndications:Tommy dder mass 1 Tablet OR ONCE 03/10/2023 03/10/2023 Discontinued ciprofloxacin (Cipro) tab 500 mgIndications:Bladder mass 500 mg OR ONCE 03/10/2023 03/10/2023 Ended documented as of this encounter (statuses as of 03/10/2023) Active Problems Problem Noted Date 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 Overview: Non-invasive papillary urothelial carcinoma, [place], old 11/04/2021 Overview: January 2013 Chronic kidney [...] as of this encounter Progress Notes * Yasmany Campbell MD - 03/10/2023 11:08 AM EDT [id number] PCP: EDINSON PRABHAKAR [address] [place] [address] [place] [address] Ovidio Cantor is a 72 year old male, who presents for cystoscopy for evaluation of his bladder cancer history. Past notes are reviewed. Recent CT images are personally reviewed. No significant hydronephrosis or perinephric hematoma is appreciated. Patient denies bothersome voiding symptoms. Difficulties with renal failure over the course of admission is noted. Bladder Cancer: Found Jan 2022. S/p TURBT Feb 2022 - low grade, noninvasive. BPH: TURP of median lobe performed February 2022 with improved stream. Buried phallus: Causes spraying of stream. Persist despite weight loss. Improved with ED medication, prescribed sildenafil 100 mg. Wishes to change to daily dose. Cialis daily dose provided October 2022. Urolithiasis: Patient is being seen for stone disease today. Problem has been present for years.. They have had one stone before. and They have passed all their previous stones without the need for surgery. Severity is mild Problem is getting better. Patient has had the following imaging done: CT scan. In the past they have had no surgery for stoneto manage their stones. Stone composition is unknown. Previous evaluation was done in ER. Gross Hematuria: Caused ER presentation November 2021. Cystoscopy January 2022 - 3 cm bladder tumor found. Left perirenal hematoma: Presented Aug 2021, acutely, no inciting factor. CT done January 2023 via ER at [facility]. PSA Results: Lab Results Component Value Date/Time PSA - [facility] 3.12 02/19/2022 10:40 AM Creatinine Results: Lab Results Component Value Date/Time CREATININE - [facility] 2.2 (H) 11/06/2022 11:03 AM CREATININE - [facility] 1.9 (H) 07/25/2022 09:37 AM CREATININE - [facility] 1.8 (H) 02/19/2022 10:40 AM CREATININE - [facility] 1.5 (H) 08/02/2020 10:55 AM CREATININE - [facility] 1.4 (H) 05/02/2020 10:54 AM CREATININE - [facility] 1.4 (H) 01/05/2020 08:35 AM CREATININE, RANDOM URINE - [facility] 49 11/06/2022 11:03 AM CREATININE, RANDOM URINE - [facility] 91 12/17/2021 11:06 AM CREATININE-OUTSIDE LAB 1.82 (A) 12/11/2021 12:00 AM Current Outpatient Medications Medication Sig Dispense Refill MAG-OXIDE 400 MG PO TABS 1 TABLETS DAILY 34 Tab 11 Amiodarone HCl 200 MG Oral Tablet (Cordarone) [...] needed for Erectile Dysfunction. 90 Tablet 3 Tylenol 325 MG Oral Capsule (Acetaminophen) Take by mouth. Lisinopril 5 MG Oral Tablet (Prinivil) Take by mouth 1 Tablet in the morning. (Patient not taking: Reported on 03/10/2023) 90 Tablet 3 Furosemide 40 MG Oral Tablet (Lasix) TAKE ONE TABLET BY MOUTH TWICE DAILY (Patient taking differently: 2 Tablets in the morning and 2 Tablets before bedtime.) 180 Tablet 3 No current facility-administered medications for this visit. Review of patient's allergies indicates: Allergen Reactions Other - Foods Hives Mellow Yellow soda Social History: Social History Tobacco Use Smoking status: Former Packs/day: 1.00 Years: 10.00 Pack years: 10.00 Types: Cigarettes Quit date: 07/27/1995 Years since quittin.6 Smokeless tobacco: Current Types: Snuff Tobacco comments: Quit smoking 20 years ago. Can of snuff lasts one day Substance Use Topics Alcohol use: Not Currently Comment: Quit Vaping/E-Cigarette Use Vaping/E-Cigarette Substances Vaping/E-Cigarette Devices Past Surgical History: Procedure Laterality Date ARM/ELBOW SUBQ TUMOR REMOVAL, UNDER 3 CM 05/10/2013 EXCISION TUMOR UPPER ARM SUBCUTANEOUS performed by Deshaun Cash MD at [facility] BACK/FLANK SUBQ TUMOR REMOVAL, UNDER 3 CM 05/10/2013 EXCISION SOFT TISSUE TUMOR BACK OR FLANK performed by Deshaun Cash MD at [facility] CATHETERIZE LEFT HEART THRU SKIN 02/08/2010 LEFT HEART CATH, PERCUTANEOUS performed by CARDIAC FABRICATION AND LAYOUT CRAFTSMAN [place] at [facility] CT ABD/PELVIS WO IV/ORAL CONTRAST 09/19/2021 left [...] TUMOR performed by Yasmany Campbell MD at [facility] CYSTOSCOPY/URETERAL CATHETER N/A 03/12/2022 CYSTOURETHROSCOPY WITH URETERAL CATHETER performed by Yasmany Campbell MD at [facility] INFORMATION 05/23/2013 05/23/2013 I & D of abcess right thigh INFORMATION Cardioverter/defibrillator placed. REPAIR INITIAL INGUINAL HERNIA REDUCIBLE AGE 5 OR MORE 11/07/2010 11/07/2010 [facility] - Dr. Cash VASC DUPLEX VENOUS LE BILAT Bilateral 09/24/2021 no DVT Past Medical History: Diagnosis Date AICD (automatic cardioverter/defibrillator) present 01/13/2020 THANH (acute kidney injury) (HCC) 02/19/2023 creatinine 3.3 [facility] BPH (benign prostatic hyperplasia) Cancer of bladder (HCC) 03/12/2022 Non-invasive papillary urothelial carcinoma, Chronic systolic heart failure (HCC) 04/26/2019 CKD (chronic kidney disease), stage III (HCC) Dyslipidemia 01/13/2020 Encounter for hepatitis C screening test for low risk patient 12/31/2020 negative Gross hematuria 12/10/2021 watched at [facility], lisinopril stopped Hematoma of left kidney 09/19/2021 admitted [facility], aspirin stopped HTN (hypertension) Idiopathic cardiomyopathy (HCC) Diagnosed - 2009 [place], old January 2013 Morbid obesity with BMI of 50.0-59.9, adult (HCC) 12/31/2020 Sleep apnea Diagnosed - 2009 Sustained VT (ventricular tachycardia) (HCC) 01/23/2013 Tobacco use disorder 04/26/2019 snuff Unilateral inguinal hernia 11/28/2010 Ventricular arrhythmia 11/11/2011 Non sustained VT Patient Active Problem List Diagnosis Code Non-ischemic cardiomyopathy (HCC) I42.8 RVOT ventricular tachycardia (HCC) I47.29 Chronic systolic heart failure (HCC) I50.22 Tobacco use disorder F17.200 Dyslipidemia, goal LDL below 70 E78.5 AICD (automatic cardioverter/defibrillator) present Z95.810 Prediabetes R73.03 Body mass index (BMI) of 45.0 to 49.9 in adult (HCC) Z68.42 Chronic kidney disease, stage 3b (HCC) N18.32 [place], old I25.2 Cancer of bladder (HCC) C67.9 Male : See HPI Cystoscopy Procedure Note: Patient was properly identified and appropriate consent was confirmed. Risks and benefits of the procedure were reviewed and the patient was prepped and draped in the standard fashion for the procedure. A well lubricated 16 Kiswahili flexible cystoscope was introduced through the meatus into the urethra. Urethra demonstrated no abnormalities. Prostatic urethra demonstrated moderate lateral lobe prostatic obstruction and friable tissue. Bladder neck was visualized and bladder was entered. Sterile saline irrigation was used to distend the bladder which was noted to have no tumors, stones or mucosal abnormalities with grade 2 trabeculation. Bladder was completely inspected including retroflexion of the scope. Ureteral orifices were noted to be in the normal anatomic position bilaterally. After this was completed the cystoscope was removed. Patient tolerated the procedure well without complications or difficulties. Family Services Specialist was present for entire procedure. Perioperative Cipro was provided. Impression/Plan: 72-year-old male with history of bladder cancer, KEREN x 1 year. Seen the lack of recurrent tumor will move out to 6 month cystoscopies. Patient is offered finasteride for his friable prostate tissue, declines. Will continue to follow with Nephrology. Yasmany Campbell MD 11:08 AM 03/10/2023 documented in this encounter Nursing Notes * Lillian Da Silva LPN - 03/10/2023 10:54 AM EDT Patient in office for cystoscopy. Consent signed. documented in this encounter Plan of Treatment Upcoming Encounters Date Type Specialty Care Team Description 03/10/2023 Office Visit Nephrology Michelle Sorenson MD [address] [place] [facility] [address] Arrived 03/26/2023 Office Visit Cardiology Edwin Cantu DO [address] [place] [address] 05/12/2023 Office Visit Family Medicine Edinson Prabhakar MD [address] [place] [address] [place] [phone] 07/01/2023 Office Visit Cardiology Sandra Armstrong IV, MD [address], [place] [id number] 09/15/2023 Procedure Only Urology Yasmany Campbell MD [address] [place] [address] [place] [address] Scheduled Orders Name Type Priority Associated Diagnoses Orde r Schedule PSA Lab Routine BPH with obstruction/lower urinary tract symptoms Ordered: 03/10/2023 CYSTOSCOPY Procedures Routine Bladder mass Bladder cancer screening Ordered: 03/10/2023 Health Maintenance Due Date Last [...] Additional history exists CKD HGB USE SMARTSET 12060 07/25/202307/25, 07/25/2022, 02/19/2022, Additional history exists Albumin/Creatinine Ratio 11/07/2023 11/06/2022, 11/25 CKD PHOS USE SMARTSET 86033 11/07/202310/25, 09/30/2021, 12/31/2020, Additional history exists Lipid [...] as of this encounter Visit Diagnoses Diagnosis Bladder mass- Primary Other specified disorders of bladder Hematuria, gross Gross hematuria BPH with obstruction/lower urinary tract symptoms Hypertrophy of prostate with urinary obstruction and other lower urinary tract symptoms (LUTS) Bladder cancer screening Screening for malignant neoplasm of the bladder documented in this encounter Administered Medications Inactive Administered Medications - up to 3 most recent administrations Medication Order MAR Action Action Date Dose Rate Site ciprofloxacin (Cipro) tab 500 mg 500 mg, Oral, ONCE, On Thu03/10/23 at 1200, For 1 dose, Hold antacids and iron for 3-4 hours before and after administration. Given 03/10/2023 11:45 AM EDT 500 mg documented in this encounter Advance Directives Latest [...] the patient have Health Care Power of Manager Fine Dining? No Care Teams Rocket Motor Tester Relationship Specialty Start Date End Date Edinson Prabhakar MD [address] [place] [address] [place] [address] PCP - General Family Medicine 05/03/21 documented as of this encounter
--- OUTSIDE RECORDS SUMMARY | 2023-08-27 22:03 | External Medical Summary | Summary of Care ---
Author Name Unknown Organization [facility] Address [address] [place] [address] Phone [phone] Care Team Providers Care Shop Firer/Fireman Name Role Phone Edinson Prabhakar MD Primary Care Provider [phone] Reason for Visit * Reason Comments Cystoscopy Encounter Details Date Type Department Care Team Description 03/10/2023 Procedure Only Urology, [facility] 132 [facility] [place] [address] [facility]asm[facility] [address] [place] [address] Bladder mass*; Hematuria, gross; BPH [...] bladder 03/12/2022 Overview: Non-invasive papillary urothelial carcinoma, [place], old 11/04/2021 Overview: January 2013 Chronic kidney [...] Campbell MD - 03/10/2023 11:08 AM EDT [id number] PCP: EDINSON PRABHAKAR [address] [place] [address] [place] [address] Ovidio Cantor is a [...] CT done January 2023 via ER at [facility]. PSA Results: Lab Results Component Value Date/Time [...] SUBCUTANEOUS performed by Deshaun Cash MD at [facility] BACK/FLANK SUBQ TUMOR REMOVAL, UNDER 3 CM 05/10/2013 EXCISION SOFT TISSUE TUMOR BACK OR FLANK performed by Deshaun Cash MD at [facility] CATHETERIZE LEFT HEART THRU SKIN 02/08/2010 LEFT HEART CATH, PERCUTANEOUS performed by CARDIAC PHOTO TECH [place] at [facility] CT ABD/PELVIS WO IV/ORAL CONTRAST 09/19/2021 left [...] TUMOR performed by Yasmany Campbell MD at [facility] CYSTOSCOPY/URETERAL CATHETER N/A 03/12/2022 CYSTOURETHROSCOPY WITH URETERAL CATHETER performed by Yasmany Campbell MD at [facility] INFORMATION 05/23/2013 05/23/2013 I & D of abcess right thigh INFORMATION Cardioverter/defibrillator placed. REPAIR INITIAL INGUINAL HERNIA REDUCIBLE AGE 5 OR MORE 11/07/2010 11/07/2010 [facility] - Dr. Cash VASC DUPLEX VENOUS LE BILAT Bilateral 09/24/2021 no DVT Past Medical History: Diagnosis Date AICD (automatic cardioverter/defibrillator) present 01/13/2020 THANH (acute kidney injury) (HCC) 02/19/2023 creatinine 3.3 [facility] BPH (benign prostatic hyperplasia) Cancer of bladder (HCC) 03/12/2022 Non-invasive papillary urothelial carcinoma, Chronic systolic heart failure (HCC) 04/26/2019 CKD (chronic kidney disease), stage III (HCC) Dyslipidemia 01/13/2020 Encounter for hepatitis C screening test for low risk patient 12/31/2020 negative Gross hematuria 12/10/2021 watched at [facility], lisinopril stopped Hematoma of left kidney 09/19/2021 admitted [facility], aspirin stopped HTN (hypertension) Idiopathic cardiomyopathy (HCC) Diagnosed - 2009 [place], old January 2013 Morbid obesity with BMI [...] Chronic kidney disease, stage 3b (HCC) N18.32 [place], old I25.2 Cancer of bladder (HCC) C67.9 Male : See HPI Cystoscopy Procedure Note: Patient was properly identified and appropriate consent was confirmed. Risks and benefits of the procedure were reviewed and the patient was prepped and draped in the standard fashion for the procedure. A well lubricated 16 Japanese flexible cystoscope was introduced through the meatus [...] the procedure well without complications or difficulties. Director Day Care Center was present for entire procedure. Perioperative Cipro was provided. Impression/Plan: 72-year-old male with history of bladder cancer, KREEN x 1 year. Seen the lack of [...] Visit Nephrology Michelle Sorenson MD [address] [facility] [place] [address] Arrived 03/26/2023 Office Visit Cardiology Edwin Cantu DO [address] [place] [address] 05/12/2023 Office Visit Family Medicine Edinson Prabhakar MD [address] [place] [address] [place] [phone] 07/01/2023 Office Visit Cardiology Sandra Armstrong IV, MD [address] [place], [place] [phone] 09/15/2023 Procedure Only Urology Yasmany Campbell MD [address] [place] [address] [place] [address] Scheduled Orders Name Type Priority Associated Diagnoses [...] Additional history exists CKD HGB USE SMARTSET 62194 07/25/202307/25, 07/25/2022, 02/19/2022, Additional history exists Albumin/Creatinine Ratio 11/07/2023 11/06/2022, 11/25 CKD PHOS USE SMARTSET 78988 11/07/202310/25, 09/30/2021, 12/31/2020, Additional history exists Lipid [...] the patient have Health Care Power of Defence Intelligence Analyst? No Care Teams Shop Firer/Fireman Relationship Specialty Start Date End Date Edinson Prabhakar MD [address] [place] [address] [place] [address] PCP - General Family Medicine 05/03/21 documented as of this encounter
--- OUTSIDE RECORDS SUMMARY | 2023-08-27 22:03 | External Medical Summary | Summary of Care ---
Author Name Unknown Organization [facility] Address [address] [place] [address] Phone [phone] Care Team Providers Care Cover Creaser Name Role Phone Kd Castellon MD Primary Care Provider [phone] Encounter Details Date Type Department Care Team Description 03/06/2023 Result Scan Unspecified Department Sandra Armstrong IV, MD [address] [place] [address] <No scans attached> Allergies Active Allergy Reactions Severity Noted Date Comments Other - Foods Hives 02/08/2010 Mellow Yellow soda documented as of this encounter (statuses as of 03/06/2023) Medications Medication Sig Dispensed Refills Start Date End Date Status MAG-OXIDE 400 MG PO TABSIndications:Idiopa thic cardiomyopathy (HCC),Sleep apnea 1 TABLETS DAILY 34 Tab 11 03/08/2011 Active Tylenol 325 MG Oral Capsule (Acetaminophen) Take by mouth. 0 Activ e Lisinopril 5 MG Oral Tablet (Prinivil)Indications: Prediabetes,Chronic systolic heart failure (HCC),Chronic kidney disease, stage 3b (HCC) Take by mouth 1 Tablet in the morning. 90 Tablet 3 05/14/2022 Active Amiodarone HCl 200 MG Oral Tablet (Cordarone)Indications [...] TWICE DAILY 180 Tablet 3 10/29/2022 Active documented as of this encounter (statuses as of 03/06/2023) Active Problems Problem Noted Date 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 Overview: Non-invasive papillary urothelial carcinoma, [place], old 11/04/2021 Overview: January 2013 Chronic kidney [...] as of this encounter (statuses as of 03/06/2023) Resolved Problems Problem Noted Date Resolved Date [...] as of this encounter (statuses as of 03/06/2023) Immunizations Name Administration Dates Next Due COVID-19 [...] Date Type Specialty Care Team Description 03/10/2023 Procedure Only Urology Yasmany Campbell MD [address] [place] [address] [place] [address] 03/10/2023 Office Visit Nephrology Michelle Sorenson MD [address] [facility] [place] [address] 03/26/2023 Office Visit Cardiology Edwin Cantu, DO [address] [place] [address] 05/12/2023 Office Visit Family Medicine Kd Castellon MD [address] [place] [address] [place] [phone] 07/01/2023 Office Visit Cardiology Sandra Armstrong IV, MD [address] [facility] [address] Health Maintenance Due Date Last Done Comments [...] and Over 05/02/2021 05/02/2020 HbA1c 02/19/2023 02/19/2022, 0401/2021, 05/02/2020, Additional history exists Influenza Vaccine (FLU shot) (#1) 2023 GFR 05/08/2023 11/06/2022, 06/28, 02/19/2022, Additional history exists CKD HGB USE SMARTSET 20539 07/25/202307/25, 07/25/2022, 02/19/2022, Additional history exists Albumin/Creatinine Ratio 11/07/2023 11/06/2022, 11/25 CKD PHOS USE SMARTSET 67777 11/07/202310/25, 09/30/2021, 12/31/2020, Additional history exists Lipid [...] Procedure Name Priority Date/Time Associated Diagnosis Comments CARDIOLOGY SCANNED RESULT 03/06/2023 documented in this encounter Results * CARDIOLOGY SCANNED RESULT (03/06/2023) 03/06/2023 Sandra Armstrong IV, MD OTHER documented in this encounter Advance Directives Latest [...] the patient have Health Care Power of Web Developer? No Care Teams Cover Creaser Relationship Specialty Start Date End Date Kd Castellon MD [address] [place] [address] [place] [address] PCP - General Family Medicine 05/03/21 documented as of this encounter
--- OUTSIDE RECORDS SUMMARY | 2023-08-27 22:03 | External Medical Summary | Summary of Care ---
Author Name Unknown Organization [facility] Address [address] [place] [address] Phone [phone] Care Team Providers Care Firing Pin Gauger Name Role Phone Edinson Prabhakar MD Primary Care Provider Reason for Visit * Reason Comments Cystoscopy Encounter Details Date Type Department Care Team Description 03/10/2023 Procedure Only Urology, [facility] 132 [facility] [place] [address] Yasmany Campbell MD [address] [facility] [facility] [address] [place] [address] Bladder mass*; Hematuria, gross; BPH with [...] Campbell MD - 03/10/2023 11:08 AM EDT [id number] PCP: EDINSON PRABHAKAR [address] [place] [address] [place] [address] Ovidio Cantor is a [...] CT done January 2023 via ER at [facility]. PSA Results: Lab Results Component Value Date/Time [...] SUBCUTANEOUS performed by Deshaun Cash MD at [facility] BACK/FLANK SUBQ TUMOR REMOVAL, UNDER 3 CM 05/10/2013 EXCISION SOFT TISSUE TUMOR BACK OR FLANK performed by Deshaun Cash MD at [facility] CATHETERIZE LEFT HEART THRU SKIN 02/08/2010 LEFT HEART CATH, PERCUTANEOUS performed by CARDIAC SALES SUPPORT SPECIALIST [place] at [facility] CT ABD/PELVIS WO IV/ORAL CONTRAST 09/19/2021 left [...] TUMOR performed by Yasmany Campbell MD at [facility] CYSTOSCOPY/URETERAL CATHETER N/A 03/12/2022 CYSTOURETHROSCOPY WITH URETERAL CATHETER performed by Yasmany Campbell MD at [facility] INFORMATION 05/23/2013 05/23/2013 I & D of abcess right thigh INFORMATION Cardioverter/defibrillator placed. REPAIR INITIAL INGUINAL HERNIA REDUCIBLE AGE 5 OR MORE 11/07/2010 11/07/2010 [facility] - Dr. Cash VASC DUPLEX VENOUS LE BILAT Bilateral 09/24/2021 no DVT Past Medical History: Diagnosis Date AICD (automatic cardioverter/defibrillator) present 01/13/2020 THANH (acute kidney injury) (HCC) 02/19/2023 creatinine 3.3 [facility] BPH (benign prostatic hyperplasia) Cancer of bladder (HCC) 03/12/2022 Non-invasive papillary urothelial carcinoma, Chronic systolic heart failure (HCC) 04/26/2019 CKD (chronic kidney disease), stage III (HCC) Dyslipidemia 01/13/2020 Encounter for hepatitis C screening test for low risk patient 12/31/2020 negative Gross hematuria 12/10/2021 watched at [facility], lisinopril stopped Hematoma of left kidney 09/19/2021 admitted [facility], aspirin stopped HTN (hypertension) Idiopathic cardiomyopathy (HCC) Diagnosed - 2009 [place], old January 2013 Morbid obesity with BMI [...] for the procedure. A well lubricated 16 Hebrew flexible cystoscope was introduced through the meatus [...] the procedure well without complications or difficulties. Balance Clerk was present for entire procedure. Perioperative Cipro [...] Visit Nephrology Michelle Sorenson MD [address] [facility] [place] [address] 03/26/2023 Office Visit [facility]iology [facility] [place] [address] 05/12/2023 Office Visit Family Medicine Edinson Prabhakar MD [address] [place] [address] [place] [phone] 07/01/2023 Office Visit Cardiology Sandra Armstrong IV, MD [address] [place] [address] 09/15/2023 Procedure Only Urology Yasmany Campbell MD [address] [place] [address] [facility] [place] [address] Scheduled Orders Name Type Priority Associated Diagnoses [...] Additional history exists CKD HGB USE SMARTSET 20970 07/25/202307/25, 07/25/2022, 02/19/2022, Additional history exists Albumin/Creatinine Ratio 11/07/2023 11/06/2022, 11/25 CKD PHOS USE SMARTSET 76202 11/07/202310/25, 09/30/2021, 12/31/2020, Additional history exists Lipid [...] the patient have Health Care Power of Group Controller? No Care Teams Firing Pin Gauger Relationship Specialty Start Date End Date Edinson Prabhakar MD [address] [place] [address] [place] [address] PCP - General Family Medicine 05/03/21 documented as of this encounter
--- OUTSIDE RECORDS SUMMARY | 2023-08-27 22:03 | External Medical Summary | Summary of Care ---
Author Name Unknown Organization [facility] Address [address] [place] [address] Phone [phone] Care Team Providers Care Professor Of History Name Role Phone Kd Castellon MD Primary Care Provider Encounter Details Date Type Department Care Team Description 03/06/2023 Result Scan Unspecified Department Sandra Armstrong IV, MD [address] [place] [address] <No scans attached> Allergies Active [...] bladder 03/12/2022 Overview: Non-invasive papillary urothelial carcinoma, [place], old 11/04/2021 Overview: January 2013 Chronic kidney [...] Office Visit Nephrology Michelle Sorenson MD [address] [place] [address] 03/26/2023 Office Visit Cardiology Edwin Cantu, DO [address] [place] [id number] 05/12/2023 Office Visit Family Medicine Kd Castellon MD [address] [place] [address] [place] [id number] 07/01/2023 Office Visit [facility]iology [facility] [address] [facility] [address] Health Maintenance Due Date Last Done Comments [...] Additional history exists CKD HGB USE SMARTSET 50043 07/25/202307/25, 07/25/2022, 02/19/2022, Additional history exists Albumin/Creatinine Ratio 11/07/2023 11/06/2022, 11/25 CKD PHOS USE SMARTSET 85350 11/07/202310/25, 09/30/2021, 12/31/2020, Additional history exists Lipid [...] the patient have Health Care Power of Court Transcriber? No Care Teams Professor Of History Relationship Specialty Start Date End Date Kd Castellon MD [address] [place] [address] [place] [id number] PCP - General Family Medicine 05/03/21 documented as of this encounter
[2023-08-27 23:15] LABS: Hematocrit (blood only) 41.1 % (42.0-52.0)
[2023-08-28] MEDS: AMIODARONE 200 MG TAB PO SCH (08:18)
[2023-08-28] MEDS: CHOLECALCIFEROL 25 MCG (1000 UNITS) TAB PO SCH (08:19)
[2023-08-28] MEDS: MAGNESIUM OXIDE 400 MG TAB PO SCH (08:19)
[2023-08-28 09:14] LABS: Hematocrit (blood only) 44.1 % (42.0-52.0); Hemoglobin 13.5 g/dl (14.0-18.0); Mean Corpuscular Hemoglobin 30.9 pg (25.0-34.0); Mean Corpuscular Hgb Conc 30.6 g/dL (32.0-36.0); Mean Corpuscular Volume 100.9 fL (80.0-100.0); Mean Platelet Volume 11.2 fL (9.4-12.4); Platelet Count 120 K/uL (130-400); RDW Coefficient of Variation 14.2 % (11.5-14.5); RDW Standard Deviation 53.1 fL (36.4-46.3); Red Blood Count 4.37 M/uL (4.70-6.10); White Blood Count 4.35 K/ul (4.8-10.8)
[2023-08-28 09:30] LABS: Albumin Globulin Ratio 1.2 (0.9-2); Albumin Level 3.6 gm/dl (3.4-5.0); BUN Creatinine Ratio 21.1 (10-20); Bilirubin,Total 0.5 mg/dl (0.2-1.0); Calcium 8.3 mg/dl (8.6-10.3); Creatinine Clr Calc Pharmacy 47.5 ml/min; Est GFR (African American) 34.8 ml/min; Globulin 2.9 gm/dl (2.5-4.0); Magnesium 2.2 mg/dl (1.7-2.4); Phosphorus 4.5 mg/dl (2.5-4.9); Potassium 4.3 mmol/L (3.5-5.1); Total Protein 6.5 gm/dl (6.0-8.3)
[2023-08-28 09:47] LABS: Thyroid Stimulating Hormone 0.215 uIu/ml (0.300-4.500)
[2023-08-28 09:53] LABS: Ferritin 630.5 ng/ml (8-388)
[2023-08-28 09:57] LABS: Folate (Folic Acid),Ser orPlas 14.95 ng/ml (>5.38)
[2023-08-28 10:04] LABS: Base Excess ABG 11.9 mEq/L (-9-1.8); HCO3 ABG 42 mmol/L (19-24); Oxygen Saturation ABG 97.8 % (90-95); PCO2 ABG 83 mmHg (35-46); PO2 ABG 108 mmHg (80-95); pH ABG 7.31 (7.35-7.45)
[2023-08-28 10:06] LABS: Allen Test Pos (Pos)
[2023-08-28 10:16] LABS: Estimated Average Glucose 131 mg/dl; Hemoglobin A1C 6.2 % (4.5-5.6)
[2023-08-28 10:22] LABS: T4 Free Thyroxine 1.26 ng/dl (0.61-1.60)
[2023-08-28] MEDS: OXYMETAZOLINE 0.05% 30 ML BTL NAE PRN (12:17)
--- NOTE | 2023-08-28 15:13 | Hospitalist Progress Note ---
Date of Service August 28, 2023 Assessment & Plan (1) Facial fracture: Plan: Pt is a 73yoM with PMHx significant for hyperlipidemia, prediabetes, chronic systolic heart failure, history of nonischemic cardiomyopathy, Hx of ventricular tachycardia, s/p AICD, history of IA, morbid obesity, history of bladder cancer s/p surgery, chronic kidney disease stage III, former smoker presenting after a fall in a parking lot with facial fractures. Facial fractures following a mechanical fall in the parking lot Pt with fall in parking lot, states he believes he stumbled while using cane CT face noting fractures of the bilateral nasal bone, bilateral laminae papyracea and fracture of the R inferior orbital wall with herniation of fat Oromaxillofacial surgery consulted: -case discussed on 08/[address] Pastrana: advised to keep NPO with sips/chips for the next few hours, continue to apply nasal compression and as long as there is no further bleeding, pt may be allowed to eat as there would be no indication for surgery at that time. However, he notes that if bleeding continues as a very last resort will consider posterior nasal packing in the OR. -requesting to be contacted at [phone] should pt develop any vision issues. -recommending continued abx treatment Appreciate input and recommendation from orofacial maxillary surgeon No surgery is needed, nasal bleeding is controlled and does not require any nasal packing No treatment needed other than control bleeding with Afrin and normal saline and gentle nasal blowing Has been on Unasyn and will change to oral Augmentin to decrease the volume overload Epistaxis Pt with significant epistaxis in setting of fractures above Received dose of tranexamic acid, nasal compression in the ED Continue to monitor and resume po intake once bleeding controlled per Dr Pastrana H/H monitoring On oxymask to help with breathing in setting of nasal compression and nasal bleeding with clots Epistaxis seems to be controlled with current measures Change in mental status Noted to be very drowsy this morning but easily waking up and conversing Has been requiring 10 L to maintain saturation ABG showed-pH of 7.31, pCO2 of 83, O2 of 108 and bicarb 42 He was placed on BiPAP Will monitor (2) Tooth abscess: (3) Fall: Plan: Tooth Abscess, periapical Face CT noting periapical tooth abscess near 2nd L mandibular incisor On Unasyn as noted above Consider dental outpt f/u Will change to oral Augmentin from today (4) Swelling of scalp: Plan: Fall Weakness Scalp swelling/contusion By pt description appears mechanical, though concern for weakness Denies LOC Head CT with no acute bleed but does note scalp swelling in midline frontal region Facial fractures noted as above Cervical spine CT with no acute fractures Pelvic XRAY with no acute fractures UA ordered and pending to rule out as a possible cause Lyme/Anaplasma with noted pancytopenia Repeat Echo pending, previous from 02/15 noted EF 40-45%, moderate aortic valve sclerosis w/o significant aortic stenosis Pt with AICD- order placed to interrogate (see below) to r/o as possible cause of fall PT/OT Cardiomegaly Nonischemic cardiomyopathy Hx of Monomorphic VT Presence of AICD HFrEF Elevated troponin hs-trop elevated at 25, increased to 49.3 EKG noting paced rhythm Repeat Echo pending, previous from 02/15 noted EF 40-45%, moderate aortic valve sclerosis w/o significant aortic stenosis, mild global hypokinesis of LV, mild- to mod mitral regurg Chest XRAY noting cardiomegaly, AICD with mild pulmonary vascular congestion Trend trop to peak Doubt ACS, likely demand Pt with AICD- order placed to interrogate as noted above Pt was supposed to have his Cardiology appt today when he fell in the parking lot. Per [facility] review and last pcp note, pt was frustrated about his previous Cardiology appts being canceled. Also letter to pt in [facility], from 08/05/2023 advising pt to come in for a Cardiology/pacer visit as there is an "active advisory" on his ICD that needs adjusted. Unsure if it had been done. Continue home amiodarone 300mg (liver enzymes currently elevated-see below, AM TSH pending), Lasix 80mg BID, metoprolol succinate 200mg qhs as soon as able to tolerate po Consider Cardiology consult while inpatient especially in setting of acute blood loss stressor Appreciate cardiology input and recommendation Status post AICD check and has been working normally Advised to continue with diuresis (5) Pancytopenia: Plan: Pancytopenia Leukopenia noted-slight, acute Anemia- chronic: follow AM iron panel, ferritin, b12, folate levels Thrombocytopenia-acute Peripheral smear ordered and pending Lyme titer with IgG and IgM and negative. Anaplasma DNA test has been pending Peripheral blood smear-unremarkable for any significant disease Will monitor CBC (6) Hyponatremia: (7) Elevated liver enzymes: (8) CKD (chronic kidney disease): (9) RUQ abdominal pain: Plan: Elevated Liver enzymes RUQ abdominal pain AST and ALT elevated at 141 and 108 respectively Pt on amiodarone which can cause hepatotoxicity- noted baseline on 08/19/23 of ALT of 15 and AST of 18 in [facility] Pt also with RUQ abd tenderness on exam, notes he has "gallbladder issues" Liver US-cholelithiasis without any evidence of acute cholecystitis Hold home statin at this time in the setting of elevated enzymes above Will monitor LFT Plan Hyponatremia Slight, acute Sodium of 134 Continue to monitor with AM labs Consider further workup if persistent Sodium level has been normal CKD Pt with Cr of 2.22 Known kidney disease, recent baseline appears to be ~2.2 noted in [facility] on 08/19 Given HFreF Hx and chest xray, cautious fluids as needed Pt follows with Nephrology Prediabetes Glucose level slightly elevated at 111 AM [id number] pending HLD Holding home statin in setting of elevated liver enzymes as noted above ED Holding home tadalafil Vit D def Continue home supplement Diet: NPO at this time until nasal bleeding controlled, can take meds/sips and chips DVT prophylaxis: Pt with copious nasal bleed, will defer at this time CODE STATUS: DNR/DNI per discussion with pt and niece in the room Dispo: PCU/Tele Admission and Anticipated Discharge Date Admission Date: August 27, 2023 Subjective 08/28/2023 The patient was seen and examined in telemetry unit He was admitted following a fall in the parking lot with facial fractures Noted to be drowsy this morning and moderate shortness of breath, requiring 8 to 10 L of oxygen to maintain saturation Denies any chest pain or palpitation. No abdominal pain nausea and vomiting Review of Systems Review of Systems: All systems reviewed and are unremarkable except as noted below Neurologic: Noted to be drowsy but awakes and converse normally Physical Exam Physical Exam: Lying in bed without any acute distress but remains drowsy since this morning Constitutional: well developed, well nourished, + ill appearing and + obese Eyes: PERRL, conjunctivae normal, anicteric sclerae ENMT: external ear and nose normal, oropharynx normal Neck: trachea midline, no thyromegaly Respiratory: + respiratory distress (Mild to moderate respiratory distress at rest) Auscultation: + diminished lung sounds and + crackles (Minimal crackles bibasilarly) Cardiovascular: Rate/Rhythm: regular rate and regular rhythm; not tachycardic Heart Sounds: normal S1 and normal S2; no murmur Extremities: + edema (1+ bilateral leg edema) Gastrointestinal (Abdomen): Inspection/Auscultation: + abdomen distended and normal bowel sounds Percussion/Palpation: abdomen soft; abdomen nontender Musculoskeletal: No acute arthritis involving any of the joint Skin: Facial laceration from fall Neurologic: normal touch/pain/proprioception, moves all extremities, awake and + confused (Drowsy and pleasantly confused); no focal motor deficits Lymphatic: no cervical or axillary lymphadenopathy Results & Data Results & Data Vital Signs (Past 12 Hours) Vital Signs Temp Pulse Pulse Resp BP BP Pulse Ox 08/28/23 14:59 37.2 C 66 20 119/75 95 08/28/23 13:51 08/28/23 12:02 36.7 C 60 21 117/70 96 08/28/23 08:10 37.1 C 60 16 98/57 L 100 08/28/23 03:36 36.9 C 61 18 131/87 94 O2 Del Method O2 Flow Rate 08/28/23 14:59 Oxymask 8 08/28/23 13:51 Oxymask 6 08/28/23 12:02 Oxymask 6 08/28/23 08:10 Oxymask 10 08/28/23 03:36 Oxymask 6 Laboratory Results Short CBC 08/27/23 08/27/23 08/28/23 Range/Units 16:28 22:49 08:12 WBC 4.35 L (4.8-10.8) K/ul Hgb 12.9 L 13.0 L 13.5 L (14.0-18.0) g/dl Hct 41.4 L 41.1 L 44.1 (42.0-52.0) % Plt Count 120 L (130-400) K/uL BMP 08/28/23 08:12 Sodium 140 Potassium 4.3 Chloride 96 L Carbon Dioxide 40 H BUN 45 H Creatinine 2.13 H Glucose 94 Calcium 8.3 L Liver Function 08/28/23 Range/Units 08:12 Total Bilirubin 0.5 (0.2-1.0) mg/dl AST 214 H (13-39) U/L ALT 195 H (7-52) U/L Alkaline Phosphatase 67 (34-104) U/L Albumin 3.6 (3.4-5.0) gm/dl Urine 08/27/23 Range/Units 15:45 Urine Color Yellow Urine Appearance Clear (Clear) Urine pH 5.5 (4.5-7.5) Ur Specific [place] 1.015 (1.000-1.030) Urine Protein Trace H (Negative) Urine Glucose (UA) Negative (Negative) Medications Administered Current Inpatient Medications Amiodarone HCl (Amiodarone 200 Mg Tab) 300 mg PO QAM [facility] Stop: 09/27/23 08:59 Last Admin: 08/28/23 08:18 Dose: Not Given Furosemide (Furosemide 80 Mg Tab) 80 mg PO [id number] [facility] Stop: 09/26/23 16:59 Last Admin: 08/28/23 10:19 Dose: 80 mg Hydromorphone HCl (Hydromorphone Inj 0.5 Mg/0.5 Ml Syr) 0.5 mg IV Q6H PRN PRN Reason: Mod-Sev Pain (Scale 4-10) Stop: 09/10/23 15:32 Ampicillin Sodium/Sulbactam Sodium 3,000 mg/ Sodium Chloride 100 mls @ 100 mls/hr IV Q6H [facility] Stop: 09/06/23 16:59 Last Infusion: 08/28/23 12:38 Dose: Infused Acetaminophen (Ofirmev) 1,000 mg in 100 mls @ 400 mls/hr IV Q8H PRN PRN Reason: Mild Pain (Scale 1, 2, 3) Stop: 08/30/23 15:32 Last Infusion: 08/28/23 08:33 Dose: Infused Magnesium Oxide (Magnesium Oxide 400 Mg Tab) 400 mg PO QAM [facility] Stop: 09/27/23 08:59 Last Admin: 08/28/23 08:19 Dose: 400 mg Metoprolol Succinate (Metoprolol Succ 50mg Ext Rel Tab) 200 mg PO HS [facility] Stop: 09/26/23 20:59 Last Admin: 08/27/23 20:10 Dose: 200 mg Ondansetron HCl (Ondansetron Inj 2 Mg/Ml 2 Ml Vial) 4 mg IV Q6H [facility] Stop: 09/26/23 13:59 Last Admin: 08/28/23 14:25 Dose: Not Given Oxymetazoline HCl (Oxymetazoline 0.05% 30 Ml Btl) 2 sprays ANIA Q4H PRN PRN Reason: mild nasal oozing/bleed Stop: 09/26/23 16:56 Last Admin: 08/28/23 12:17 Dose: 2 sprays Sodium Chloride (Sodium Chloride 0.65% Na Soln 45 Ml ([place])) 2 sprays NA Q4H [facility] Stop: 09/26/23 16:59 Last Admin: 08/28/23 11:53 Dose: 2 sprays Vitamin D (Cholecalciferol 25 Mcg (1000 Units) Tab) 25 mcg PO QAM [facility] Stop: 09/27/23 08:59 Last Admin: 08/28/23 08:19 Dose: 25 mcg
--- NOTE | 2023-08-28 16:49 | Cardiology Progress Note ---
Date of Service August 28, 2023 Assessment & Plan (1) Facial bones, closed fracture: (2) Fracture closed, nasal bone: (3) Fall: (4) Status post implantation of automatic cardioverter/defibrillator (AICD): Plan Patient with [employer] AICD advisory, device interrogated and reprogrammed with the assistance of the [employer] public health representative on 08/27/2023 and the advised programming change has been completed. ASD functioning normally, there does not appear to be an arrhythmia issue that would have been associated with his fall. Patient with increased oxygen requirements in the setting of CO2 retention likely because of pain from breathing in the setting of his fractures. He is now on positive pressure ventilation and is resting comfortably. Continue prior to hospital treatment with furosemide 80 mg p.o. twice daily however in the setting of treatment with IV antibiotic therapy (Unasyn) may need additional IV diuretics. Neurology to follow peripherally, call with questions or concerns, Dr. Freddy bonilla for the weekend. Admission and Anticipated Discharge Date Admission Date: August 27, 2023 Subjective Telemetry reveals sinus rhythm with AV sequential pacing. No arrhythmias overnight last night. Patient resting comfortably on positive pressure ventilation. Daughter visiting. Physical Exam Constitutional: + obese ENMT: Nose: + facial edema (Erythema over the forehead, nose and eye) Respiratory: normal respiratory effort, lungs clear to auscultation Cardiovascular: RRR, no murmur, no edema Chest (Breasts): Chest: + pacemaker (Mild ecchymosis over the left chest) Gastrointestinal (Abdomen): normal bowel sounds, soft, nontender, no hepatosplenomegaly Results & Data Vital Signs (Past 12 Hours) Vital Signs Temp Pulse Pulse Pulse Resp BP BP 08/28/23 16:43 60 16 08/28/23 14:59 37.2 C 66 20 119/75 08/28/23 13:51 08/28/23 12:02 36.7 C 60 21 117/70 08/28/23 08:10 37.1 C 60 16 98/57 L Pulse Ox O2 Del Method O2 Flow Rate FiO2 08/28/23 16:43 93 60 08/28/23 14:59 95 Oxymask 8 08/28/23 13:51 Oxymask 6 08/28/23 12:02 96 Oxymask 6 08/28/23 08:10 100 Oxymask 10 Diagnostic Findings Arterial blood gas performed today in the setting of increased oxygen requirements: pH 7.31, pCO2 83, pO2 108, HCO3 42, O2 saturation 97.8% Creatinine 2.13 compared to 2.74 in February,. (1) Facial bones, closed fracture Encounter type: initial encounter Facial bone/location: nasal bone Qualified Code(s): S02.2XXA - Fracture of nasal bones, initial encounter for closed fracture (2) Fracture closed, nasal bone Encounter type: initial encounter Qualified Code(s): S02.2XXA - Fracture of nasal bones, initial encounter for closed fracture (3) Fall Encounter type: initial encounter Qualified Code(s): W19.XXXA - Unspecified fall, initial encounter
[2023-08-28] MEDS: FUROSEMIDE 40 MG/4 ML VIAL IV SCH (18:08)
[2023-08-28] MEDS ORDERED: FUROSEMIDE 40 MG/4 ML VIAL IV SCH (21:00)
[2023-08-28] MEDS: METOPROLOL TARTRATE 1 MG/ML VIAL IV SCH (21:38)
[2023-08-28] MEDS: SODIUM CHLORIDE 0.9% 500 ML IV SCH (22:59)
[2023-08-28] MEDS: HYDROmorphone INJ 0.5 MG/0.5 ML SYR IV STA (23:03)
[2023-08-28 23:19] LABS: Base Excess ABG 11.3 mEq/L (-9-1.8); HCO3 ABG 42 mmol/L (19-24); PCO2 ABG 87 mmHg (35-46); PO2 ABG 91 mmHg (80-95); pH ABG 7.29 (7.35-7.45)
[2023-08-29 00:40] LABS: Allen Test Pos (Pos)
[2023-08-29 06:53] LABS: Albumin Level 3.5 gm/dl (3.4-5.0); Bilirubin,Total 0.5 mg/dl (0.2-1.0); Calcium 8.1 mg/dl (8.6-10.3); Magnesium 2.4 mg/dl (1.7-2.4); Potassium 4.8 mmol/L (3.5-5.1)
[2023-08-29 06:56] LABS: Basophils # (auto) 0.01 K/uL (0.00-0.20); Basophils % (auto) 0.3 %; Hematocrit (blood only) 44.7 % (42.0-52.0); Hemoglobin 13.6 g/dl (14.0-18.0); Immature Granulocytes # (auto) 0.03 K/uL (0.01-0.20); Immature Granulocytes % (auto) 0.8 %; Lymphocytes # (auto) 0.82 K/uL (1.20-3.40); Lymphocytes % (auto) 21.2 %; Mean Corpuscular Hemoglobin 31.1 pg (25.0-34.0); Mean Corpuscular Hgb Conc 30.4 g/dL (32.0-36.0); Mean Corpuscular Volume 102.3 fL (80.0-100.0); Mean Platelet Volume 10.9 fL (9.4-12.4); Monocytes # (auto) 0.74 K/uL (0.11-0.59); Monocytes % (auto) 19.2 %; Neutrophils # (auto) 2.26 K/uL (1.40-6.50); Neutrophils % (auto) 58.5 %; Platelet Count 125 K/uL (130-400); RDW Coefficient of Variation 13.7 % (11.5-14.5); RDW Standard Deviation 52.4 fL (36.4-46.3); Red Blood Count 4.37 M/uL (4.70-6.10); White Blood Count 3.86 K/ul (4.8-10.8)
[2023-08-29 06:59] LABS: Albumin Globulin Ratio 1.2 (0.9-2); BUN Creatinine Ratio 19.7 (10-20); Creatinine Clr Calc Pharmacy 38.3 ml/min; Est GFR (African American) 26.8 ml/min; Est GFR (Non-African American) 23.1 ml/min; Globulin 2.9 gm/dl (2.5-4.0); Phosphorus 4.7 mg/dl (2.5-4.9); Total Protein 6.4 gm/dl (6.0-8.3)
[2023-08-29 10:48] LABS: Allen Test Pos (Pos); Base Excess ABG 14.9 mEq/L (-9-1.8); HCO3 ABG 45 mmol/L (19-24); Oxygen Saturation ABG 97.7 % (90-95); PCO2 ABG 85 mmHg (35-46); PO2 ABG 92 mmHg (80-95); pH ABG 7.33 (7.35-7.45)
[2023-08-29] MEDS: HYDROmorphone INJ 0.5 MG/0.5 ML SYR IV PRN (13:08)
[2023-08-29] MEDS: NALOXONE HCL 0.4 MG/1 ML VIAL/CARP ONE (14:37)
[2023-08-29] MEDS: LORazepam 0.5 MG in SYRINGE 0.25 ML IV STA (14:37)
[2023-08-29] MEDS: NALOXONE HCL 0.4 MG/1 ML VIAL/CARP IV STA (14:52)
--- NOTE | 2023-08-29 15:13 | Hospitalist Progress Note ---
Date of Service August 29, 2023 Assessment & Plan (1) Facial fracture: Plan: Pt is a 73yoM with PMHx significant for hyperlipidemia, prediabetes, chronic systolic heart failure, history of nonischemic cardiomyopathy, Hx of ventricular tachycardia, s/p AICD, history of TN, morbid obesity, history of bladder cancer s/p surgery, chronic kidney disease stage III, former smoker presenting after a fall in a parking lot with facial fractures. Change in mental status Noted to be very drowsy this morning but easily waking up and conversing Has been requiring 10 L to maintain saturation ABG showed-pH of 7.31, pCO2 of 83, O2 of 108 and bicarb 42 He was placed on BiPAP CO2 remains elevated at around 80s and the pH is 7.33 and the patient does not want to be intubated in case the condition gets worse Having occasional apneic spell Discussed with the family members and the patient again and again and he clearly mention does not want to be intubated BiPAP has been applied The case was discussed with the hot iron worker-nothing more can be done as he is refusing intubation, will continue to use BiPAP, upright position and monitor This was again conveyed to the family members He received 2 doses of IV Narcan as he was going into apneic spells He received another dose of 80 mg of Lasix for more diuresis The condition improved and the repeat blood gas showed pH of 7.5, CO2 42.6 and pO2 187 bicarb of 34-BiPAP was taken off and he is getting oxygen through the mask He was started talking normally-family members were in the room Facial fractures following a mechanical fall in the parking lot Pt with fall in parking lot, states he believes he stumbled while using cane CT face noting fractures of the bilateral nasal bone, bilateral laminae papyracea and fracture of the R inferior orbital wall with herniation of fat Oromaxillofacial surgery consulted: -case discussed on 08/[address] Pastrana: advised to keep NPO with sips/chips for the next few hours, continue to apply nasal compression and as long as there is no further bleeding, pt may be allowed to eat as there would be no indication for surgery at that time. However, he notes that if bleeding continues as a very last resort will consider posterior nasal packing in the OR. -requesting to be contacted at [phone] should pt develop any vision issues. -recommending continued abx treatment Appreciate input and recommendation from orofacial maxillary surgeon No surgery is needed, nasal bleeding is controlled and does not require any nasal packing No treatment needed other than control bleeding with Afrin and normal saline and gentle nasal blowing Has been on Unasyn and will change to oral Augmentin to decrease the volume overload Complains of pain especially with use of BiPAP Epistaxis Pt with significant epistaxis in setting of fractures above Received dose of tranexamic acid, nasal compression in the ED Continue to monitor and resume po intake once bleeding controlled per Dr Pastrana H/H monitoring On oxymask to help with breathing in setting of nasal compression and nasal bleeding with clots Epistaxis seems to be controlled with current measures (2) Tooth abscess: (3) Fall: Plan: Tooth Abscess, periapical Face CT noting periapical tooth abscess near 2nd L mandibular incisor On Unasyn as noted above Consider dental outpt f/u Will change to oral Augmentin from today (4) Swelling of scalp: Plan: Fall Weakness Scalp swelling/contusion By pt description appears mechanical, though concern for weakness Denies LOC Head CT with no acute bleed but does note scalp swelling in midline frontal region Facial fractures noted as above Cervical spine CT with no acute fractures Pelvic XRAY with no acute fractures UA ordered and pending to rule out as a possible cause Lyme/Anaplasma with noted pancytopenia Repeat Echo pending, previous from 02/15 noted EF 40-45%, moderate aortic valve sclerosis w/o significant aortic stenosis Pt with AICD- order placed to interrogate (see below) to r/o as possible cause of fall PT/OT Cardiomegaly Nonischemic cardiomyopathy Hx of Monomorphic VT Presence of AICD HFrEF Elevated troponin hs-trop elevated at 25, increased to 49.3 EKG noting paced rhythm Repeat Echo pending, previous from 02/15 noted EF 40-45%, moderate aortic valve sclerosis w/o significant aortic stenosis, mild global hypokinesis of LV, mild- to mod mitral regurg Chest XRAY noting cardiomegaly, AICD with mild pulmonary vascular congestion Trend trop to peak Doubt ACS, likely demand Pt with AICD- order placed to interrogate as noted above Pt was supposed to have his Cardiology appt today when he fell in the parking lot. Per EPIC review and last pcp note, pt was frustrated about his previous Cardiology appts being canceled. Also letter to pt in [facility], from 08/05/2023 advising pt to come in for a Cardiology/pacer visit as there is an "active advisory" on his ICD that needs adjusted. Unsure if it had been done. Continue home amiodarone 300mg (liver enzymes currently elevated-see below, AM TSH pending), Lasix 80mg BID, metoprolol succinate 200mg qhs as soon as able to tolerate po Consider Cardiology consult while inpatient especially in setting of acute blood loss stressor Appreciate cardiology input and recommendation Status post AICD check and has been working normally Advised to continue with diuresis-will give another dose of Lasix of 40 mg IV (5) Pancytopenia: Plan: Pancytopenia Leukopenia noted-slight, acute Anemia- chronic: follow AM iron panel, ferritin, b12, folate levels Thrombocytopenia-acute Peripheral smear ordered and pending Lyme titer with IgG and IgM and negative. Anaplasma DNA test has been pending Peripheral blood smear-unremarkable for any significant disease Will monitor CBC (6) Hyponatremia: (7) Elevated liver enzymes: (8) CKD (chronic kidney disease): (9) RUQ abdominal pain: Plan: Elevated Liver enzymes RUQ abdominal pain AST and ALT elevated at 141 and 108 respectively Pt on amiodarone which can cause hepatotoxicity- noted baseline on 08/19/23 of ALT of 15 and AST of 18 in [facility] Pt also with RUQ abd tenderness on exam, notes he has "gallbladder issues" Liver US-cholelithiasis without any evidence of acute cholecystitis Hold home statin at this time in the setting of elevated enzymes above Will monitor LFT Plan Hyponatremia Slight, acute Sodium of 134 Continue to monitor with AM labs Consider further workup if persistent Sodium level has been normal CKD Pt with Cr of 2.22 Known kidney disease, recent baseline appears to be ~2.2 noted in [facility] on 08/19 Given HFreF Hx and chest xray, cautious fluids as needed Pt follows with Nephrology Prediabetes Glucose level slightly elevated at 111 AM [id number] pending HLD Holding home statin in setting of elevated liver enzymes as noted above ED Holding home tadalafil Vit D def Continue home supplement Diet: NPO at this time until nasal bleeding controlled, can take meds/sips and chips DVT prophylaxis: Pt with copious nasal bleed, will defer at this time CODE STATUS: DNR/DNI per discussion with pt and niece in the room Dispo: PCU/Tele Admission and Anticipated Discharge Date Admission Date: August 27, 2023 Subjective 08/28/2023 The patient was seen and examined in telemetry unit He was admitted following a fall in the parking lot with facial fractures Noted to be drowsy this morning and moderate shortness of breath, requiring 8 to 10 L of oxygen to maintain saturation Denies any chest pain or palpitation. No abdominal pain nausea and vomiting 08/29/2023 The patient was seen and examined in presence of the family members He has been lethargic and has had more lethargy at night, repeat ABG did not show any change in CO2 and he has been refusing BiPAP This morning he was noted to be lethargic as well and refusing BiPAP He strongly refused to have any intubation if he needs it and it was confirmed with the family members and himself in the room He denies any chest pain or palpitation. Has moderate shortness of breath Review of Systems Review of Systems: Other Physical Exam Physical Exam: Lying in bed with moderate respiratory distress and drowsiness Constitutional: well developed, well nourished, + ill appearing and + obese Eyes: PERRL, conjunctivae normal, anicteric sclerae ENMT: external ear and nose normal, oropharynx normal Neck: trachea midline, no thyromegaly Respiratory: + respiratory distress (Mild to moderate respiratory distress at rest) Auscultation: + diminished lung sounds and + crackles (Minimal crackles bibasilarly) Cardiovascular: Rate/Rhythm: regular rate and regular rhythm; not tachycardic Heart Sounds: normal S1 and normal S2; no murmur Extremities: + edema (1+ bilateral leg edema) Gastrointestinal (Abdomen): Inspection/Auscultation: + abdomen distended and normal bowel sounds Percussion/Palpation: abdomen soft; abdomen nontender Neurologic: normal touch/pain/proprioception, moves all extremities, awake and + confused (Drowsy and pleasantly confused); no focal motor deficits Falls asleep easily. Been having apneic spells as per the nurse Lymphatic: no cervical or axillary lymphadenopathy Results & Data Results & Data Vital Signs (Past 12 Hours) Vital Signs Temp Pulse Pulse Resp BP BP Pulse Ox 08/29/23 14:01 60 27 H 99 02/03/24 12:31 61 113/65 08/29/23 12:04 61 113/65 08/29/23 11:12 37.4 C 61 20 113/65 100 08/29/23 07:22 37.2 C 69 22 100/57 L 98 08/29/23 06:20 60 96/54 L 08/29/23 03:33 37.5 C 83 22 116/66 94 O2 Del Method O2 Flow Rate FiO2 08/29/23 14:01 50 08/29/23 12:31 08/29/23 12:04 08/29/23 11:12 Oxymask 6 08/29/23 07:22 Oxymask 9 08/29/23 06:20 08/29/23 03:33 Nasal CPAP Laboratory Results Short CBC 08/29/23 08/29/23 Range/Units 06:01 06:31 WBC Cancelled 3.86 L Hgb Cancelled 13.6 L Hct Cancelled 44.7 Plt Count Cancelled 125 L BMP 08/29/23 06:01 Sodium 142 Potassium 4.8 Chloride 99 Carbon Dioxide 36 H BUN 52 H Creatinine 2.64 H D Glucose 96 Calcium 8.1 L Liver Function 08/29/23 Range/Units 06:01 Total Bilirubin 0.5 (0.2-1.0) mg/dl AST 185 H (13-39) U/L ALT 189 H (7-52) U/L Alkaline Phosphatase 61 (34-104) U/L Albumin 3.5 (3.4-5.0) gm/dl
--- NOTE | 2023-08-29 16:17 | XRay Report ---
XR chest 1V portable HISTORY: 73 years-old Male CHF acute shortness of breath COMPARISON: 08/27/2023 TECHNIQUE: AP view of the chest FINDINGS: Cardiac silhouette is enlarged. Left subclavian pacer/AICD. Mild right hemidiaphragmatic elevation wi th linear bibasilar and right midlung opacities suggestive of atelectasis. Pulmonary vascular congest ion. No pneumothorax, large pleural effusion or overt pulmonary edema. Degenerative changes of the sh oulders and spine. IMPRESSION: Cardiomegaly with pulmonary vascular congestion. ACT 112: Negative or not required by law. The above report was generated using voice recognition software. It may contain grammatical, syntax o r spelling errors. Electronically signed by: Ancelmo Jones M.D. 08/29/2023 4:16 PM
[2023-08-29] MEDS: FUROSEMIDE 40 MG/4 ML VIAL IV ONE (16:24)
[2023-08-29] MEDS: ACETAMINOPHEN 1,000 MG/100 ML VIAL IV STA (16:36)
[2023-08-29 17:13] LABS: iSTAT Arterial Blood Gas HCO3 34 meg/L (19-24); iSTAT Arterial Blood Gas pCO2 43 mmHg (35-46); iSTAT Arterial Blood Gas pH 7.51 (7.35-7.45); iSTAT Arterial Blood Gas pO2 187 mmHg (80-95); iSTAT Carbon Dioxide 35 mmol/L (24-31); iSTAT FiO2 92 %; iSTAT Hematocrit 38 % (42-52); iSTAT Hemoglobin 12.9 g/dl (14.0-18.0); iSTAT Potassium 4.6 mmol/L (3.3-5.0); iSTAT Sodium 141 mmol/L (135-144)
[2023-08-30 06:55] LABS: Albumin Globulin Ratio 1.2 (0.9-2); Albumin Level 3.3 gm/dl (3.4-5.0); BUN Creatinine Ratio 19.3 (10-20); Bilirubin,Total 0.5 mg/dl (0.2-1.0); Calcium 8.1 mg/dl (8.6-10.3); Creatinine Clr Calc Pharmacy 28.7 ml/min; Est GFR (African American) 18.9 ml/min; Est GFR (Non-African American) 16.3 ml/min; Globulin 2.7 gm/dl (2.5-4.0); Magnesium 2.4 mg/dl (1.7-2.4); Phosphorus 4.4 mg/dl (2.5-4.9); Potassium 4.5 mmol/L (3.5-5.1)
[2023-08-30 06:58] LABS: Basophils # (auto) 0.01 K/uL (0.00-0.20); Basophils % (auto) 0.4 %; Hematocrit (blood only) 39.1 % (42.0-52.0); Hemoglobin 12.2 g/dl (14.0-18.0); Immature Granulocytes # (auto) 0.02 K/uL (0.01-0.20); Immature Granulocytes % (auto) 0.7 %; Lymphocytes # (auto) 0.57 K/uL (1.20-3.40); Lymphocytes % (auto) 20.6 %; Mean Corpuscular Hgb Conc 31.2 g/dL (32.0-36.0); Mean Corpuscular Volume 99.5 fL (80.0-100.0); Mean Platelet Volume 11.2 fL (9.4-12.4); Monocytes # (auto) 0.45 K/uL (0.11-0.59); Monocytes % (auto) 16.2 %; Neutrophils # (auto) 1.72 K/uL (1.40-6.50); Neutrophils % (auto) 62.1 %; Platelet Count 131 K/uL (130-400); RDW Coefficient of Variation 13.7 % (11.5-14.5); RDW Standard Deviation 50.5 fL (36.4-46.3); Red Blood Count 3.93 M/uL (4.70-6.10); White Blood Count 2.77 K/ul (4.8-10.8)
--- NOTE | 2023-08-30 11:10 | CT Scan Report ---
CT head/brain wo con CLINICAL HISTORY: 73 years-old Male with s/p Fall ,confusion. Acute head injury status post fall TECHNIQUE: Multiple axial CT images of the head were obtained without contrast. A dose lowering tech nique was utilized adhering to the principles of ALARA. CT DOSE: 750.68 mGy.cm COMPARISON: 08/27/2023 FINDINGS: No acute intracranial hemorrhage, midline shift, intracranial mass, hydrocephalus, territorial ischem ia or abnormal extra-axial collection. Involutional changes with chronic microvascular ischemic disea se. Mildly motion degraded exam. The calvarium is intact. Small maxillary air-fluid levels. Acute displaced fractures of the mid bony nasal septum noted along with fractures of the right lamina papyracea, nasal bones with age-indeterm inate depressed right orbital floor fracture. These findings are better seen on the previous CT maxil lofacial study. Small facial contusions. IMPRESSION: 1. No acute intracranial abnormality or calvarial fracture identified. 2. Facial contusions with facial bone fractures redemonstrated, better seen on the study from . ACT 112: Negative or not required by law. The above report was generated using voice recognition software. It may contain grammatical, syntax o r spelling errors. Electronically signed by: Ancelmo Jones M.D. 08/30/2023 11:08 AM
--- NOTE | 2023-08-30 13:32 | Hospitalist Progress Note ---
Date of Service August 30, 2023 Assessment & Plan (1) Facial fracture: Plan: Pt is a 73yoM with PMHx significant for hyperlipidemia, prediabetes, chronic systolic heart failure, history of nonischemic cardiomyopathy, Hx of ventricular tachycardia, s/p AICD, history of [place], morbid obesity, history of bladder cancer s/p surgery, chronic kidney disease stage III, former smoker presenting after a fall in a parking lot with facial fractures. Change in mental status Noted to be very drowsy this morning but easily waking up and conversing Has been requiring 10 L to maintain saturation ABG showed-pH of 7.31, pCO2 of 83, O2 of 108 and bicarb 42 He was placed on BiPAP CO2 remains elevated at around 80s and the pH is 7.33 and the patient does not want to be intubated in case the condition gets worse Having occasional apneic spell Discussed with the family members and the patient again and again and he clearly mention does not want to be intubated BiPAP has been applied The case was discussed with the cupola hoist operator-nothing more can be done as he is refusing intubation, will continue to use BiPAP, upright position and monitor This was again conveyed to the family members He received 2 doses of IV Narcan as he was going into apneic spells He received another dose of 80 mg of Lasix for more diuresis The condition improved and the repeat blood gas showed pH of 7.5, CO2 42.6 and pO2 187 bicarb of 34-BiPAP was taken off and he is getting oxygen through the mask He was started talking normally-family members were in the room A little worse this morning-has not been tolerating BiPAP He has been saturating normally on 4 L Repeat CAT scan of the head remained unremarkable Discussed with the niece and the patient ,will have palliative care input tomorrow Facial fractures following a mechanical fall in the parking lot Pt with fall in parking lot, states he believes he stumbled while using cane CT face noting fractures of the bilateral nasal bone, bilateral laminae papyracea and fracture of the R inferior orbital wall with herniation of fat Oromaxillofacial surgery consulted: -case discussed on 08/[address] Pastrana: advised to keep NPO with sips/chips for the next few hours, continue to apply nasal compression and as long as there is no further bleeding, pt may be allowed to eat as there would be no indication for surgery at that time. However, he notes that if bleeding continues as a very last resort will consider posterior nasal packing in the OR. -requesting to be contacted at [phone] should pt develop any vision issues. -recommending continued abx treatment Appreciate input and recommendation from orofacial maxillary surgeon No surgery is needed, nasal bleeding is controlled and does not require any nasal packing No treatment needed other than control bleeding with Afrin and normal saline and gentle nasal blowing Has been on Unasyn and will change to oral Augmentin to decrease the volume overload Complains of pain especially with use of BiPAP Epistaxis Pt with significant epistaxis in setting of fractures above Received dose of tranexamic acid, nasal compression in the ED Continue to monitor and resume po intake once bleeding controlled per Dr Pastrana H/H monitoring On oxymask to help with breathing in setting of nasal compression and nasal bleeding with clots Epistaxis seems to be controlled with current measures (2) Tooth abscess: (3) Fall: Plan: Tooth Abscess, periapical Face CT noting periapical tooth abscess near 2nd L mandibular incisor On Unasyn as noted above Consider dental outpt f/u Will change to oral Augmentin from today (4) Swelling of scalp: Plan: Fall Weakness Scalp swelling/contusion By pt description appears mechanical, though concern for weakness Denies LOC Head CT with no acute bleed but does note scalp swelling in midline frontal region Facial fractures noted as above Cervical spine CT with no acute fractures Pelvic XRAY with no acute fractures UA ordered and pending to rule out as a possible cause Lyme/Anaplasma with noted pancytopenia Repeat Echo pending, previous from 02/15 noted EF 40-45%, moderate aortic valve sclerosis w/o significant aortic stenosis Pt with AICD- order placed to interrogate (see below) to r/o as possible cause of fall PT/OT Repeat CT of the head did not show any significant abnormality except facial fractures as before Cardiomegaly Nonischemic cardiomyopathy Hx of Monomorphic VT Presence of AICD HFrEF Elevated troponin hs-trop elevated at 25, increased to 49.3 EKG noting paced rhythm Repeat Echo pending, previous from 02/15 noted EF 40-45%, moderate aortic valve sclerosis w/o significant aortic stenosis, mild global hypokinesis of LV, mild- to mod mitral regurg Chest XRAY noting cardiomegaly, AICD with mild pulmonary vascular congestion Trend trop to peak Doubt ACS, likely demand Pt with AICD- order placed to interrogate as noted above Pt was supposed to have his Cardiology appt today when he fell in the parking lot. Per [facility] review and last pcp note, pt was frustrated about his previous Cardiology appts being canceled. Also letter to pt in [facility], from 08/05/2023 advising pt to come in for a Cardiology/pacer visit as there is an "active advisory" on his ICD that needs adjusted. Unsure if it had been done. Continue home amiodarone 300mg (liver enzymes currently elevated-see below, AM TSH pending), Lasix 80mg BID, metoprolol succinate 200mg qhs as soon as able to tolerate po Consider Cardiology consult while inpatient especially in setting of acute blood loss stressor Appreciate cardiology input and recommendation Status post AICD check and has been working normally Advised to continue with diuresis-will give another dose of Lasix of 40 mg IV His creatinine is minimally elevated from that of yesterday-will hold Lasix for now Monitor PRP tomorrow and restart Lasix (5) Pancytopenia: Plan: Pancytopenia Leukopenia noted-slight, acute Anemia- chronic: follow AM iron panel, ferritin, b12, folate levels Thrombocytopenia-acute Lyme titer with IgG and IgM and negative. Anaplasma DNA test has been pending Peripheral blood smear-unremarkable for any significant disease Will monitor CBC-improving (6) Hyponatremia: (7) Elevated liver enzymes: (8) CKD (chronic kidney disease): (9) RUQ abdominal pain: Plan: Elevated Liver enzymes RUQ abdominal pain AST and ALT elevated at 141 and 108 respectively Pt on amiodarone which can cause hepatotoxicity- noted baseline on 08/19/23 of ALT of 15 and AST of 18 in [facility] Pt also with RUQ abd tenderness on exam, notes he has "gallbladder issues" Liver US-cholelithiasis without any evidence of acute cholecystitis Hold home statin at this time in the setting of elevated enzymes above Will monitor LFT Plan Hyponatremia Slight, acute Sodium of 134 Continue to monitor with AM labs Consider further workup if persistent Sodium level has been normal CKD Pt with Cr of 2.22 Known kidney disease, recent baseline appears to be ~2.2 noted in [facility] on 08/19 Given HFreF Hx and chest xray, cautious fluids as needed Pt follows with Nephrology Kidney function is worse today with BUN and creatinine went up to 68/3.53 Lasix has been on hold Will monitor PRP Prediabetes Glucose level slightly elevated at 111 AM [id number] pending HLD Holding home statin in setting of elevated liver enzymes as noted above ED Holding home tadalafil Vit D def Continue home supplement Diet: NPO at this time until nasal bleeding controlled, can take meds/sips and chips DVT prophylaxis: Pt with copious nasal bleed, will defer at this time CODE STATUS: DNR/DNI per discussion with pt and niece in the room Dispo: PCU/Tele Admission and Anticipated Discharge Date Admission Date: August 27, 2023 Subjective 08/28/2023 The patient was seen and examined in telemetry unit He was admitted following a fall in the parking lot with facial fractures Noted to be drowsy this morning and moderate shortness of breath, requiring 8 to 10 L of oxygen to maintain saturation Denies any chest pain or palpitation. No abdominal pain nausea and vomiting 08/29/2023 The patient was seen and examined in presence of the family members He has been lethargic and has had more lethargy at night, repeat ABG did not show any change in CO2 and he has been refusing BiPAP This morning he was noted to be lethargic as well and refusing BiPAP He strongly refused to have any intubation if he needs it and it was confirmed with the family members and himself in the room He denies any chest pain or palpitation. Has moderate shortness of breath 08/30/2023 The patient was seen and examined in telemetry unit in presence of the needs He has been worse this morning Remains pleasantly confused at times No excessive shortness of breath but he still has facial pain Is not tolerating BiPAP Review of Systems Review of Systems: All systems reviewed and are unremarkable except as noted below Neurologic: Noted to be drowsy but awakes and converse normally Physical Exam Physical Exam: Lying in bed with moderate respiratory distress and drowsiness Constitutional: well developed, well nourished, + ill appearing and + obese Eyes: PERRL, conjunctivae normal, anicteric sclerae ENMT: external ear and nose normal, oropharynx normal Neck: trachea midline, no thyromegaly Respiratory: + respiratory distress (Mild to moderate respiratory distress at rest) Auscultation: + diminished lung sounds and + crackles (Minimal crackles bibasilarly) Cardiovascular: Rate/Rhythm: regular rate and regular rhythm; not tachycardic Heart Sounds: normal S1 and normal S2; no murmur Extremities: + edema (1+ bilateral leg edema) Gastrointestinal (Abdomen): Inspection/Auscultation: + abdomen distended and normal bowel sounds Percussion/Palpation: abdomen soft; abdomen nontender Musculoskeletal: No acute arthritis involving any of the joint Neurologic: normal touch/pain/proprioception, moves all extremities, awake and + confused (Drowsy and pleasantly confused); no focal motor deficits Lymphatic: no cervical or axillary lymphadenopathy Results & Data Results & Data Vital Signs (Past 12 Hours) Vital Signs Temp Pulse Pulse Resp BP BP Pulse Ox 08/30/23 12:32 60 127/77 08/30/23 12:05 60 127/77 08/30/23 11:10 37.3 C 60 20 127/77 96 08/30/23 08:00 61 08/30/23 07:40 37.0 C 63 17 125/69 100 08/30/23 07:31 08/30/23 05:48 59 L 102/54 L 08/30/23 04:05 37.5 C 60 22 102/54 L 96 O2 Del Method O2 Flow Rate 08/30/23 12:32 08/30/23 12:05 08/30/23 11:10 Oxymask 4 08/30/23 08:00 08/30/23 07:40 Oxymask 11 08/30/23 07:31 Oxymask 8 08/30/23 05:48 08/30/23 04:05 Oxymask 10 Laboratory Results Short CBC 08/30/23 Range/Units 05:59 WBC 2.77 L (4.8-10.8) K/ul Hgb 12.2 L (14.0-18.0) g/dl Hct 39.1 L (42.0-52.0) % Plt Count 131 (130-400) K/uL BMP 08/30/23 05:59 Sodium 146 H Potassium 4.5 Chloride 100 Carbon Dioxide 39 H BUN 68 H Creatinine 3.53 H D Glucose 114 H Calcium 8.1 L Liver Function 08/30/23 Range/Units 05:59 Total Bilirubin 0.5 (0.2-1.0) mg/dl AST 110 H (13-39) U/L ALT 134 H (7-52) U/L Alkaline Phosphatase 54 (34-104) U/L Albumin 3.3 L (3.4-5.0) gm/dl Medications Administered Current Inpatient Medications Amiodarone HCl (Amiodarone 200 Mg Tab) 300 mg PO QAM [facility] Stop: 09/27/23 08:59 Last Admin: 08/30/23 08:50 Dose: Not Given Amoxicillin/Clavulanate Potassium (Amoxicillin/Clavulanate 500 Mg Tab) 1 tab PO BID [facility] Stop: 09/06/23 20:59 Furosemide (Furosemide 40 Mg/4 Ml Vial) 80 mg IV BID@0900,1800 [facility] Stop: 09/27/23 17:59 Last Admin: 08/30/23 10:04 Dose: Not Given Hydromorphone HCl (Hydromorphone Inj 0.5 Mg/0.5 Ml Syr) 0.5 mg IV Q6H PRN PRN Reason: Mod-Sev Pain (Scale 4-10) Stop: 09/10/23 15:32 Last Admin: 08/29/23 13:08 Dose: 0.5 mg Acetaminophen (Ofirmev) 1,000 mg in 100 mls @ 400 mls/hr IV Q8H PRN PRN Reason: Mild Pain (Scale 1, 2, 3) Stop: 08/30/23 15:32 Last Admin: 08/30/23 13:25 Dose: 400 mls/hr Magnesium Oxide (Magnesium Oxide 400 Mg Tab) 400 mg PO [facility] Stop: 09/27/23 08:59 Last Admin: 08/30/23 08:52 Dose: Not Given Metoprolol Succinate (Metoprolol Succ 50mg Ext Rel Tab) 200 mg PO HS [facility] Stop: 09/26/23 20:59 Last Admin: 08/27/23 20:10 Dose: 200 mg Metoprolol Tartrate (Metoprolol Tartrate 1 Mg/Ml Vial) 5 mg IV Q6 [facility] Stop: 09/27/23 19:39 Last Admin: 08/30/23 12:05 Dose: 5 mg Ondansetron HCl (Ondansetron Inj 2 Mg/Ml 2 Ml Vial) 4 mg IV Q6H [facility] Stop: 09/26/23 13:59 Last Admin: 08/30/23 12:06 Dose: Not Given Oxymetazoline HCl (Oxymetazoline 0.05% 30 Ml Btl) 2 sprays ANIA Q4H PRN PRN Reason: mild nasal oozing/bleed Stop: 09/26/23 16:56 Last Admin: 08/29/23 08:54 Dose: 2 sprays Sodium Chloride (Sodium Chloride 0.65% Na Soln 45 Ml ([place])) 2 sprays NA Q4H [facility] Stop: 09/26/23 16:59 Last Admin: 08/30/23 12:06 Dose: Not Given Vitamin D (Cholecalciferol 25 Mcg (1000 Units) Tab) 25 mcg PO QAM [facility] Stop: 09/27/23 08:59 Last Admin: 08/30/23 08:51 Dose: Not Given
[2023-08-30] MEDS: AMOXICILLIN/CLAVULANATE 500 MG TAB PO SCH (20:27)
[2023-08-31 06:43] LABS: Basophils # (auto) 0.01 K/uL (0.00-0.20); Basophils % (auto) 0.3 %; Eosinophils # (auto) 0.01 K/uL (0.00-0.50); Eosinophils % (auto) 0.3 %; Hematocrit (blood only) 39.7 % (42.0-52.0); Hemoglobin 12.4 g/dl (14.0-18.0); Immature Granulocytes # (auto) 0.03 K/uL (0.01-0.20); Immature Granulocytes % (auto) 0.9 %; Lymphocytes # (auto) 0.32 K/uL (1.20-3.40); Lymphocytes % (auto) 9.9 %; Mean Corpuscular Hemoglobin 31.1 pg (25.0-34.0); Mean Corpuscular Hgb Conc 31.2 g/dL (32.0-36.0); Mean Corpuscular Volume 99.5 fL (80.0-100.0); Mean Platelet Volume 11.1 fL (9.4-12.4); Monocytes # (auto) 0.52 K/uL (0.11-0.59); Neutrophils # (auto) 2.35 K/uL (1.40-6.50); Neutrophils % (auto) 72.6 %; Platelet Count 112 K/uL (130-400); RDW Coefficient of Variation 13.8 % (11.5-14.5); RDW Standard Deviation 50.9 fL (36.4-46.3); Red Blood Count 3.99 M/uL (4.70-6.10); White Blood Count 3.24 K/ul (4.8-10.8)
[2023-08-31 07:15] LABS: BUN Creatinine Ratio 18.9 (10-20); Calcium 8.3 mg/dl (8.6-10.3); Creatinine Clr Calc Pharmacy 24.3 ml/min; Est GFR (African American) 15.4 ml/min; Est GFR (Non-African American) 13.3 ml/min; Magnesium 2.8 mg/dl (1.7-2.4); Phosphorus 4.3 mg/dl (2.5-4.9); Potassium 4.4 mmol/L (3.5-5.1)
[2023-08-31] MEDS ORDERED: ONDANSETRON 4 MG OD TAB SL PRN (12:18)
[2023-08-31] MEDS ORDERED: ONDANSETRON INJ 2 MG/ML 2 ML VIAL IV PRN (12:18)
[2023-08-31] MEDS ORDERED: LORazepam 0.5 MG in SYRINGE 0.25 ML IV PRN (12:18)
[2023-08-31] MEDS ORDERED: LORazepam 0.5 MG TAB PO PRN (12:18)
[2023-08-31] MEDS: HYDROmorphone INJ 0.5 MG/0.5 ML SYR IV PRN ×2 (13:37→23:34)
--- NOTE | 2023-08-31 17:10 | Hospitalist Progress Note ---
Date of Service August 31, 2023 Assessment & Plan (1) Facial fracture: Plan: Pt is a 73yoM with PMHx significant for hyperlipidemia, prediabetes, chronic systolic heart failure, history of nonischemic cardiomyopathy, Hx of ventricular tachycardia, s/p AICD, history of PR, morbid obesity, history of bladder cancer s/p surgery, chronic kidney disease stage III, former smoker presenting after a fall in a parking lot with facial fractures. Change in mental status Noted to be very drowsy this morning but easily waking up and conversing Has been requiring 10 L to maintain saturation ABG showed-pH of 7.31, pCO2 of 83, O2 of 108 and bicarb 42 He was placed on BiPAP CO2 remains elevated at around 80s and the pH is 7.33 and the patient does not want to be intubated in case the condition gets worse Having occasional apneic spell Discussed with the family members and the patient again and again and he clearly mention does not want to be intubated BiPAP has been applied The case was discussed with the sheriffs officer-nothing more can be done as he is refusing intubation, will continue to use BiPAP, upright position and monitor This was again conveyed to the family members He received 2 doses of IV Narcan as he was going into apneic spells He received another dose of 80 mg of Lasix for more diuresis The condition improved and the repeat blood gas showed pH of 7.5, CO2 42.6 and pO2 187 bicarb of 34-BiPAP was taken off and he is getting oxygen through the mask He was started talking normally-family members were in the room A little worse this morning-has not been tolerating BiPAP He has been saturating normally on 4 L Repeat CAT scan of the head remained unremarkable Discussed with the niece and the patient ,will have palliative care input tomorrow Does not want to have any further aggressive treatment and wants to be in comfort care Awaiting palliative care-appreciate input and recommendation to continue with the comfort care Facial fractures following a mechanical fall in the parking lot Pt with fall in parking lot, states he believes he stumbled while using cane CT face noting fractures of the bilateral nasal bone, bilateral laminae papyracea and fracture of the R inferior orbital wall with herniation of fat Oromaxillofacial surgery consulted: -case discussed on 08/[address] Pastrana: advised to keep NPO with sips/chips for the next few hours, continue to apply nasal compression and as long as there is no further bleeding, pt may be allowed to eat as there would be no indication for surgery at that time. However, he notes that if bleeding continues as a very last resort will consider posterior nasal packing in the OR. -requesting to be contacted at [phone] should pt develop any vision issues. -recommending continued abx treatment Appreciate input and recommendation from orofacial maxillary surgeon No surgery is needed, nasal bleeding is controlled and does not require any nasal packing No treatment needed other than control bleeding with Afrin and normal saline and gentle nasal blowing Has been on Unasyn and will change to oral Augmentin to decrease the volume overload Complains of pain especially with use of BiPAP Cannot tolerate BiPAP and does not want it any longer Epistaxis Pt with significant epistaxis in setting of fractures above Received dose of tranexamic acid, nasal compression in the ED Continue to monitor and resume po intake once bleeding controlled per Dr Pastrana H/H monitoring On oxymask to help with breathing in setting of nasal compression and nasal bleeding with clots Epistaxis seems to be controlled with current measures No more epistaxis (2) Tooth abscess: (3) Fall: Plan: Tooth Abscess, periapical Face CT noting periapical tooth abscess near 2nd L mandibular incisor On Unasyn as noted above Consider dental outpt f/u Will change to oral Augmentin from today (4) Swelling of scalp: Plan: Fall Weakness Scalp swelling/contusion By pt description appears mechanical, though concern for weakness Denies LOC Head CT with no acute bleed but does note scalp swelling in midline frontal region Facial fractures noted as above Cervical spine CT with no acute fractures Pelvic XRAY with no acute fractures UA ordered and pending to rule out as a possible cause Lyme/Anaplasma with noted pancytopenia Repeat Echo pending, previous from 02/15 noted EF 40-45%, moderate aortic valve sclerosis w/o significant aortic stenosis Pt with AICD- order placed to interrogate (see below) to r/o as possible cause of fall PT/OT Repeat CT of the head did not show any significant abnormality except facial fractures as before Cardiomegaly Nonischemic cardiomyopathy Hx of Monomorphic VT Presence of AICD HFrEF Elevated troponin hs-trop elevated at 25, increased to 49.3 EKG noting paced rhythm Repeat Echo pending, previous from 02/15 noted EF 40-45%, moderate aortic valve sclerosis w/o significant aortic stenosis, mild global hypokinesis of LV, mild- to mod mitral regurg Chest XRAY noting cardiomegaly, AICD with mild pulmonary vascular congestion Trend trop to peak Doubt ACS, likely demand Pt with AICD- order placed to interrogate as noted above Pt was supposed to have his Cardiology appt today when he fell in the parking lot. Per [facility] review and last pcp note, pt was frustrated about his previous Cardiology appts being canceled. Also letter to pt in [facility], from 08/05/2023 advising pt to come in for a Cardiology/pacer visit as there is an "active advisory" on his ICD that needs adjusted. Unsure if it had been done. Continue home amiodarone 300mg (liver enzymes currently elevated-see below, AM TSH pending), Lasix 80mg BID, metoprolol succinate 200mg qhs as soon as able to tolerate po Consider Cardiology consult while inpatient especially in setting of acute blood loss stressor Appreciate cardiology input and recommendation Status post AICD check and has been working normally Advised to continue with diuresis-will give another dose of Lasix of 40 mg IV His creatinine is minimally elevated from that of yesterday-will hold Lasix for now Monitor PRP tomorrow and restart Lasix The patient is for comfort care (5) Pancytopenia: Plan: Pancytopenia Leukopenia noted-slight, acute Anemia- chronic: follow AM iron panel, ferritin, b12, folate levels Thrombocytopenia-acute Lyme titer with IgG and IgM and negative. Anaplasma DNA test has been pending Peripheral blood smear-unremarkable for any significant disease Will monitor CBC-improving (6) Hyponatremia: (7) Elevated liver enzymes: (8) CKD (chronic kidney disease): (9) RUQ abdominal pain: Plan: Elevated Liver enzymes RUQ abdominal pain AST and ALT elevated at 141 and 108 respectively Pt on amiodarone which can cause hepatotoxicity- noted baseline on 08/19/23 of ALT of 15 and AST of 18 in [facility] Pt also with RUQ abd tenderness on exam, notes he has "gallbladder issues" Liver US-cholelithiasis without any evidence of acute cholecystitis Hold home statin at this time in the setting of elevated enzymes above Will monitor LFT Plan Hyponatremia Slight, acute Sodium of 134 Continue to monitor with AM labs Consider further workup if persistent Sodium level has been normal CKD Pt with Cr of 2.22 Known kidney disease, recent baseline appears to be ~2.2 noted in EPIC on 08/19 Given HFreF Hx and chest xray, cautious fluids as needed Pt follows with Nephrology Kidney function is worse today with BUN and creatinine went up to 68/3.53 Lasix has been on hold Will monitor PRP Prediabetes Glucose level slightly elevated at 111 AM [id number] pending HLD Holding home statin in setting of elevated liver enzymes as noted above ED Holding home tadalafil Vit D def Continue home supplement Diet: NPO at this time until nasal bleeding controlled, can take meds/sips and chips DVT prophylaxis: Pt with copious nasal bleed, will defer at this time CODE STATUS: DNR/DNI per discussion with pt and niece in the room Dispo: PCU/Tele Admission and Anticipated Discharge Date Admission Date: August 27, 2023 Subjective 08/28/2023 The patient was seen and examined in telemetry unit He was admitted following a fall in the parking lot with facial fractures Noted to be drowsy this morning and moderate shortness of breath, requiring 8 to 10 L of oxygen to maintain saturation Denies any chest pain or palpitation. No abdominal pain nausea and vomiting 08/29/2023 The patient was seen and examined in presence of the family members He has been lethargic and has had more lethargy at night, repeat ABG did not show any change in CO2 and he has been refusing BiPAP This morning he was noted to be lethargic as well and refusing BiPAP He strongly refused to have any intubation if he needs it and it was confirmed with the family members and himself in the room He denies any chest pain or palpitation. Has moderate shortness of breath 08/30/2023 The patient was seen and examined in telemetry unit in presence of the needs He has been worse this morning Remains pleasantly confused at times No excessive shortness of breath but he still has facial pain Is not tolerating BiPAP 08/31/2023 The patient was seen and examined in telemetry unit in presence of the family member, the niece He has been in distress and does not want to continue with the aggressive treatment He wants to be comfortable Discussed again with the niece and the patient and he will be made comfort care only Physical Exam Physical Exam: Lying in bed with moderate respiratory distress and drowsiness Constitutional: well developed, well nourished, + ill appearing and + obese Eyes: PERRL, conjunctivae normal, anicteric sclerae ENMT: external ear and nose normal, oropharynx normal Neck: trachea midline, no thyromegaly Respiratory: + respiratory distress (Mild to moderate respiratory distress at rest) Auscultation: + diminished lung sounds and + crackles (Minimal crackles bibasilarly) Cardiovascular: Rate/Rhythm: regular rate and regular rhythm; not tachycardic Heart Sounds: normal S1 and normal S2; no murmur Extremities: + edema (1+ bilateral leg edema) Gastrointestinal (Abdomen): Inspection/Auscultation: + abdomen distended and normal bowel sounds Percussion/Palpation: abdomen soft; abdomen nontender Neurologic: normal touch/pain/proprioception, moves all extremities, awake and + confused (Drowsy and pleasantly confused); no focal motor deficits Lymphatic: no cervical or axillary lymphadenopathy Results & Data Results & Data Vital Signs (Past 12 Hours) Vital Signs Temp Pulse Pulse Resp BP BP BP 08/31/23 15:21 36.7 C 60 19 130/68 08/31/23 11:15 69 19 122/81 08/31/23 08:30 08/31/23 07:42 36.8 C 60 20 116/68 08/31/23 05:44 59 L 98/65 L 08/31/23 05:43 59 L 98/65 L Pulse Ox O2 Del Method O2 Flow Rate 08/31/23 15:21 96 Oxymask 4.0 08/31/23 11:15 96 Room Air 08/31/23 08:30 Oxymask 4 08/31/23 07:42 97 Oxymask 4.0 08/31/23 05:44 08/31/23 05:43 97 Oxymask 4 Laboratory Results Short CBC 08/31/23 Range/Units 06:04 WBC 3.24 L (4.8-10.8) K/ul Hgb 12.4 L (14.0-18.0) g/dl Hct 39.7 L (42.0-52.0) % Plt Count 112 L (130-400) K/uL BMP 08/31/23 06:04 Sodium 150 H Potassium 4.4 Chloride 102 Carbon Dioxide 39 H BUN 79 H Creatinine 4.17 H D Glucose 123 H Calcium 8.3 L Medications Administered Current Inpatient Medications Amiodarone HCl (Amiodarone 200 Mg Tab) 300 mg PO QAM [facility] Stop: 09/27/23 08:59 Last Admin: 08/31/23 07:47 Dose: Not Given Hydromorphone HCl (Hydromorphone Inj 0.5 Mg/0.5 Ml Syr) 0.5 mg IV Q30M PRN PRN Reason: Pain or Respiratory Distress Stop: 09/14/23 12:17 Last Admin: 08/31/23 13:37 Dose: 0.5 mg Hydromorphone HCl (Hydromorphone Inj 0.5 Mg/0.5 Ml Syr) 1 mg IV Q30M PRN PRN Reason: dyspnea, pain Stop: 09/10/23 15:32 Lorazepam 0.5 mg/ Syringe 0.5 mls @ 2 mls/min IV Q4H PRN; Protocol PRN Reason: Anxiety,restless,spasm,insomni Stop: 09/30/23 12:17 Oxymetazoline HCl (Oxymetazoline 0.05% 30 Ml Btl) 2 sprays ANIA Q4H PRN PRN Reason: mild nasal oozing/bleed Stop: 09/26/23 16:56 Last Admin: 08/29/23 08:54 Dose: 2 sprays Sodium Chloride (Sodium Chloride 0.65% Na Soln 45 Ml ([place])) 2 sprays NA Q4H KHLOE Stop: 09/26/23 16:59 Last Admin: 08/31/23 16:17 Dose: Not Given
[2023-08-31] MEDS: LORazepam 0.5 MG in SYRINGE 0.25 ML IV PRN (19:04)
--- NOTE | 2023-09-01 00:31 | Palliative Care Consultation ---
Date of Consultation September 01, 2023 Assessment & Plan (1) Dyspnea and respiratory abnormalities: (2) Facial pain, acute: (3) Weakness generalized: (4) Delirium due to general medical condition: (5) Discussion about advance care planning held with family member: face to face ACP meeting with niece/POA at bedside x45min with her consent and voluntary participation we reviewed events to date, pt wishes and preferences she notes he does not want CPR, aggressive care and this is in line with his usual baseline. she sees him declining steadily and notes that she believes he would most likely have wanted to be home for comfort focused care but she is dealing with her MOm/his sister also being admitted at another OSH and driving between 2 hospitals daily, she cannot care for his needs at home and hospice does not give enough in person caregiver support. We discussed the goals of hospice as a patient service and the goals of care; we discussed EOL trajectories and transitions vu the emotional impact of realizing mortality as a concrete reality from prior abstract considerations. Pt was reassured that no matter where they are along this trajectory, they are not alone - their medical team will remain by their side through their journey. Discussed the pros/cons of accepting help when especially weakened and distressed by pain-which would also help provide relief/decrease caregiver burden/strain. I provided education about the hospice benefit: an interdisciplinary program offered by nurses, nurses aides, social workers, chaplains and a medical billing manager for patients with a terminal condition and a life expectancy of less than 6 months. This is covered by Medicare at 100%/no out of pocket expense to patient and all meds/supplies needed by patient for the reason they are on hospice are paid for/covered by hospice. The goal is assure quality of life of the patient in their home setting (home, custodial, inpatient hospice setting) by providing symptoms management, psychosocial and spiritual support. However, they cannot offer 24 hours care and if the family is unable to provide that care, they will have to consider personal care with out of pocket cost vs. custodial placement. We discussed the goals of hospice as a patient service and the goals of care; we discussed EOL trajectories and transitions vu the emotional impact of realizing mortality as a concrete reality from prior abstract considerations. Pt was reassured that no matter where they are along this trajectory, they are not alone - their medical team will remain by their side through their journey. Discussed the pros/cons of accepting help when especially weakened and distressed by pain-which would also help provide relief/decrease caregiver burden/strain. we agreed to move pt to ENVIRONMENTAL TECHNOLOGY PROFESSOR and CM will assist with SNF placement for ENVIRONMENTAL TECHNOLOGY PROFESSOR, end of life care he is not appropriate for rehab. he cannot follow commands or engage in partnered activities he has progressive resp failure reaffirmed no code (6) Palliative care by specialist: Met with family: Niece/POA at bedside. Provided overview of Palliative Medicine, a subspecialty that provides specialized medical care for people living with a serious illness by offering a focus on quality of life. Palliative Medicine is often conflated with hospice: I advised patient/family that Palliative and hospice can be partners but we are not the same. It is important to understand the difference so that we may be informed, and not afraid. Palliative Medicine works to improve QOL through reduction of symptom burden/more control over their illness, for both the patient and family. Palliative medicine clinicians are board certified, specially-trained and another member of the patient's medical care team. We often provide an extra layer of support because our care is based on the needs of the patient, not the prognosis; as such, it's appropriate at any age/advancing stage of a serious illness and can be provided along with curative treatment. Palliative Medicine clinicians are also trained in advanced communication methodologies, to facilitate complex discussions about advanced illness planning, which are needed to help assure that the treatment choices match the patient's goals, aka delivering Goal Concordant care. Finally, we discussed that hospice is a visiting nurse service that focuses on care delivered at the very end of life for patients with terminal illness, with life expectancy less than 6 month. (7) Fracture closed, nasal bone: Encounter type: initial encounter Qualified Code(s): S02.2XXA - Fracture of nasal bones, initial encounter for closed fracture (8) Facial bones, closed fracture: Encounter type: initial encounter Facial bone/location: nasal bone Qualified Code(s): S02.2XXA - Fracture of nasal bones, initial encounter for closed fracture (9) Fall: Encounter type: initial encounter Qualified Code(s): W19.XXXA - Unspecified fall, initial encounter (10) CKD (chronic kidney disease): (11) Tooth abscess: (12) Eqhom-px-awrxbpt kidney injury: Acute renal failure type: unspecified Chronic kidney disease stage: stage 3 (moderate) Chronic kidney disease stage 3 subtype: stage 3a (GFR 45-59) Qualified Code(s): N17.9 - Acute kidney failure, unspecified; N18.31 - Chronic kidney disease, stage 3a (13) Hypoxia: (14) Bladder cancer: (15) Non-ischemic cardiomyopathy: (16) Recurrent ventricular tachycardia: (17) Obesity: (18) Diabetes: Plan moved to ENVIRONMENTAL TECHNOLOGY PROFESSOR, orders written stop all non comfort/non essential interventions CM to assist with placement Thank you for allowing us to participate in the ongoing care of this patient. Please don't hesitate to call or page with any additional concerns. Dr. Keke Berger DNP Director, Palliative Care History of Present Illness Reason for Consultation: GOC, declining Attending Physician: Sandra Palacio MD History of Present Illness Ovidio is a 73yoM with PMHx significant for hyperlipidemia, prediabetes, chronic systolic heart failure, history of nonischemic cardiomyopathy, Hx of ventricular tachycardia, s/p AICD, history of [place], morbid obesity, history of bladder cancer s/p surgery, chronic kidney disease stage III, former smoker presenting after a fall in a parking lot with facial fractures. He has worsening resp failure declines CPR and does not like BiPAP family and pt expressing desire for comfort focused care patient's mentation is now waxing and waning at time of my visit this morning he is confused and agitated, intermittently lethargic speech is garbled and he cannot provide HPI PMH: Cardiomegaly Nonischemic cardiomyopathy Hx of Monomorphic VT Presence of AICD HFrEF Allergies Allergy/AdvReac Type Severity Reaction Status Date / Time yellow dye Allergy Unknown Hives Verified 08/27/23 11:46 Home Medications Medication Instructions Recorded Confirmed Type acetaminophen 500 mg capsule 1,000 mg (2 x 500 mg) PO Q8H PRN 02/11/23 08/27/23 Rx Pain #60 caps atorvastatin 40 mg tablet 40 mg PO HS #30 tabs 02/11/23 08/27/23 Rx magnesium oxide 400 mg PO QAM #60 tabs 02/11/23 08/27/23 Rx tadalafil 5 mg tablet 5 mg PO DAILY@1700 #30 tabs 02/11/23 08/27/23 Rx metoprolol succinate 200 mg 200 mg PO HS 07/27/23 02/01/24 History tablet,extended release 24 hr amiodarone 200 mg tablet 300 mg PO QAM 08/27/23 08/27/23 History cholecalciferol (vitamin D3) 25 25 mcg PO QAM 08/27/23 08/27/23 History mcg (1,000 unit) tablet (Vitamin D3) furosemide 80 mg tablet 80 mg PO BID 08/27/23 08/27/23 History Patient History Medical History (Updated 09/01/23 @ 00:23 by Keke Berger DNP) Palliative care by specialist Discussion about advance care planning held with family member Delirium due to general medical condition Weakness generalized Facial pain, acute Dyspnea and respiratory abnormalities Abdominal hernia CKD (chronic kidney disease), stage III Bladder cancer Perinephric hematoma THANH (acute kidney injury) Hematuria History of placement of internal cardiac defibrillator Diabetes Obesity Erectile dysfunction Ventricular arrhythmia Surgical History History of cardiac cath Hx of hernia repair Social History Smoking Status: Never smoker Tobacco Type: Cigarettes Second Hand Exposure: No; Do You Dip or Chew Tobacco: No; Hx Alcohol Use: No Hx Substance Use: No Preferred Language: Romanian Communication Ability: Effective Clinical Trial Coordinator Required: No Beliefs That Will Affect Care: Caodaism marital status: alone Current Living Situation: Alone current occupational status: retired How many Children do You have: 0 Other Information That Helps Us Care for You: No Feels Safe at Home: Yes Safety Concerns: Feels Safe At This Time Diet: regular during the past year weight has: decreased > 10 lbs Physical Activity Frequency: Does not Exercise Do you think of yourself as: straight/heterosexual Gender Identity: Male Assistive Devices: Cane Review of Systems Review of Systems: Unobtainable due to cognitive status and Unobtainable due to reduced consciousness Physical Exam Physical Exam: elderly male facial fx, ecchymoses, excoriations across nasal bridge and anglican face mask in place but he is pulling on it agitated and restless garbled speech unable to follow commands bitemp wasting perrla dentition poor tachypnea and resp distress with use of accessory muscles noted, +abd breathing breath sounds diminished, scatt rhonchi tachy s1s2, irreg abd obese, non tender BS+ RANGEL with agitation skin pale, cool, some cyanotic changes to nailbeds generalized weakness 1+ BLE edema with venous insuff changes to skin confused and unable to follow commands garbled non sensical speech [facility]+ Results & Data Vital Signs (Past 12 Hours) Vital Signs Temp Pulse Resp BP Pulse Ox O2 Del Method O2 Flow Rate 08/31/23 20:50 Oxymask 4 08/31/23 15:21 36.7 C 60 19 130/68 96 Oxymask 4.0 Laboratory Results data reviewed Diagnostic Findings data reviewed PG Care Time/CCT Total # of Minutes Spent Total Time Spent: 125 Total Time Spent with Patient: Total time spent is greater than 50% in coordination of care (as documented) at patient's floor/unit and/or counseling patient: I spent 125 minutes overall addressing this complex case: 20 min in medical data review/discussion with referring provider(s) and/or preparation for the visit 25 min in direct interaction with the patient/exam 45 min in Advance Care Planning/Goals of Care discussions as detailed above in note (must be >16min) 15 min in subsequent review and synthesis of assessment and plan 20 min communicating with other providers regarding the patient's case: primary tea, nursing, care mgt Advanced Care Planning 66054 Advanced Care Planning 30 Min 31272 Advanced Care Planning Additional 30 [place] [address] IN/OBS CONSULT LVL 5,80M Patient Type New History Comprehensive Exam Comprehensive Medical Decision Making High Complexity Diagnoses Dyspnea and respiratory abnormalities R06.00; R06.89 Facial pain, acute R51.9 Weakness generalized R53.1 Delirium due to general medical condition F05 Discussion about advance care planning held with family member Z71.0 Palliative care by specialist Z51.5 Fracture closed, nasal bone S02.2XXA Encounter type: initial encounter Closed fracture of nasal bone, initial encounter S02.2XXA Encounter type: initial encounter Facial bone/location: nasal bone Fall W19.XXXA Encounter type: initial encounter CKD (chronic kidney disease) N18.9 Tooth abscess K04.7 Ugijh-ol-vellgac kidney injury N17.9; N18.31 Acute renal failure type: unspecified Chronic kidney disease stage: stage 3 (moderate) Chronic kidney disease stage 3 subtype: stage 3a (GFR 45-59) Hypoxia R09.02 Bladder cancer C67.9 Non-ischemic cardiomyopathy I42.8 Recurrent ventricular tachycardia I47.2 Obesity E66.9 Diabetes E11.9 Additional Codes Advanced Care Planning - 32148 Advanced Care Planning 30 Min: 33991 Advanced Care Planning 30 Min ([id number]) Advanced Care Planning - 44572 Advanced Care Planning Additional 30 Min: 62599 Advanced Care Planning Additional 30 Min ([id number])
--- NOTE | 2023-09-01 14:37 | Hospitalist Progress Note ---
Date of Service September 01, 2023 Assessment & Plan (1) Facial fracture: Plan: Pt is a 73yoM with PMHx significant for hyperlipidemia, prediabetes, chronic systolic heart failure, history of nonischemic cardiomyopathy, Hx of ventricular tachycardia, s/p AICD, history of MN, morbid obesity, history of bladder cancer s/p surgery, chronic kidney disease stage III, former smoker presenting after a fall in a parking lot with facial fractures. Comfort care only Condition deteriorated rapidly as mentioned below Extensive discussion with the patient and the family members prior to this stage He was put for comfort care since 08/31/2023 Remains stable without any distress We will continue with comfort care medications and management Below are the other medical conditions the patient has been managed but in the hospital: Change in mental status- Noted to be very drowsy this morning but easily waking up and conversing Has been requiring 10 L to maintain saturation ABG showed-pH of 7.31, pCO2 of 83, O2 of 108 and bicarb 42 He was placed on BiPAP CO2 remains elevated at around 80s and the pH is 7.33 and the patient does not want to be intubated in case the condition gets worse Having occasional apneic spell Discussed with the family members and the patient again and again and he clearly mention does not want to be intubated BiPAP has been applied The case was discussed with the clay carman-nothing more can be done as he is re fusing intubation, will continue to use BiPAP, upright position and monitor This was again conveyed to the family members He received 2 doses of IV Narcan as he was going into apneic spells He received another dose of 80 mg of Lasix for more diuresis The condition improved and the repeat blood gas showed pH of 7.5, CO2 42.6 and pO2 187 bicarb of 34-BiPAP was taken off and he is getting oxygen through the mask He was started talking normally-family members were in the room A little worse this morning-has not been tolerating BiPAP He has been saturating normally on 4 L Repeat CAT scan of the head remained unremarkable Discussed with the niece and the patient ,will have palliative care input tomorrow Does not want to have any further aggressive treatment and wants to be in comfort care Awaiting palliative care-appreciate input and recommendation to continue with the comfort care Facial fractures following a mechanical fall in the parking lot Pt with fall in parking lot, states he believes he stumbled while using cane CT face noting fractures of the bilateral nasal bone, bilateral laminae papyracea and fracture of the R inferior orbital wall with herniation of fat Oromaxillofacial surgery consulted: -case discussed on 08/[address] Pastrana: advised to keep NPO with sips/chips for the next few hours, continue to apply nasal compression and as long as there is no further bleeding, pt may be allowed to eat as there would be no indication for surgery at that time. However, he notes that if bleeding continues as a very last resort will consider posterior nasal packing in the OR. -requesting to be contacted at [phone] should pt develop any vision issues. -recommending continued abx treatment Appreciate input and recommendation from orofacial maxillary surgeon No surgery is needed, nasal bleeding is controlled and does not require any nasal packing No treatment needed other than control bleeding with Afrin and normal saline and gentle nasal blowing Has been on Unasyn and will change to oral Augmentin to decrease the volume overload Complains of pain especially with use of BiPAP Cannot tolerate BiPAP and does not want it any longer Epistaxis Pt with significant epistaxis in setting of fractures above Received dose of tranexamic acid, nasal compression in the ED Continue to monitor and resume po intake once bleeding controlled per Dr Pastrana H/H monitoring On oxymask to help with breathing in setting of nasal compression and nasal bleeding with clots Epistaxis seems to be controlled with current measures No more epistaxis (2) Tooth abscess: (3) Fall: Plan: Tooth Abscess, periapical Face CT noting periapical tooth abscess near 2nd L mandibular incisor On Unasyn as noted above Consider dental outpt f/u Will change to oral Augmentin from today (4) Swelling of scalp: Plan: Fall Weakness Scalp swelling/contusion By pt description appears mechanical, though concern for weakness Denies LOC Head CT with no acute bleed but does note scalp swelling in midline frontal region Facial fractures noted as above Cervical spine CT with no acute fractures Pelvic XRAY with no acute fractures UA ordered and pending to rule out as a possible cause Lyme/Anaplasma with noted pancytopenia Repeat Echo pending, previous from 02/15 noted EF 40-45%, moderate aortic valve sclerosis w/o significant aortic stenosis Pt with AICD- order placed to interrogate (see below) to r/o as possible cause of fall PT/OT Repeat CT of the head did not show any significant abnormality except facial fractures as before Cardiomegaly Nonischemic cardiomyopathy Hx of Monomorphic VT Presence of AICD HFrEF Elevated troponin hs-trop elevated at 25, increased to 49.3 EKG noting paced rhythm Repeat Echo pending, previous from 02/15 noted EF 40-45%, moderate aortic valve sclerosis w/o significant aortic stenosis, mild global hypokinesis of LV, mild- to mod mitral regurg Chest XRAY noting cardiomegaly, AICD with mild pulmonary vascular congestion Trend trop to peak Doubt ACS, likely demand Pt with AICD- order placed to interrogate as noted above Pt was supposed to have his Cardiology appt today when he fell in the parking lot. Per [facility] review and last pcp note, pt was frustrated about his previous Cardiology appts being canceled. Also letter to pt in [facility], from 08/05/2023 advising pt to come in for a Cardiology/pacer visit as there is an "active advisory" on his ICD that needs adjusted. Unsure if it had been done. Continue home amiodarone 300mg (liver enzymes currently elevated-see below, AM TSH pending), Lasix 80mg BID, metoprolol succinate 200mg qhs as soon as able to tolerate po Consider Cardiology consult while inpatient especially in setting of acute blood loss stressor Appreciate cardiology input and recommendation Status post AICD check and has been working normally Advised to continue with diuresis-will give another dose of Lasix of 40 mg IV His creatinine is minimally elevated from that of yesterday-will hold Lasix for now Monitor PRP tomorrow and restart Lasix The patient is for comfort care (5) Pancytopenia: Plan: Pancytopenia Leukopenia noted-slight, acute Anemia- chronic: follow AM iron panel, ferritin, b12, folate levels Thrombocytopenia-acute Lyme titer with IgG and IgM and negative. Anaplasma DNA test has been pending Peripheral blood smear-unremarkable for any significant disease Will monitor CBC-improving (6) Hyponatremia: (7) Elevated liver enzymes: (8) CKD (chronic kidney disease): (9) RUQ abdominal pain: Plan: Elevated Liver enzymes RUQ abdominal pain AST and ALT elevated at 141 and 108 respectively Pt on amiodarone which can cause hepatotoxicity- noted baseline on 08/19/23 of ALT of 15 and AST of 18 in [facility] Pt also with RUQ abd tenderness on exam, notes he has "gallbladder issues" Liver US-cholelithiasis without any evidence of acute cholecystitis Hold home statin at this time in the setting of elevated enzymes above Will monitor LFT Plan Hyponatremia Slight, acute Sodium of 134 Continue to monitor with AM labs Consider further workup if persistent Sodium level has been normal CKD Pt with Cr of 2.22 Known kidney disease, recent baseline appears to be ~2.2 noted in [facility] on 08/19 Given HFreF Hx and chest xray, cautious fluids as needed Pt follows with Nephrology Kidney function is worse today with BUN and creatinine went up to 68/3.53 Lasix has been on hold Will monitor PRP Prediabetes Glucose level slightly elevated at 111 AM [id number] pending HLD Holding home statin in setting of elevated liver enzymes as noted above ED Holding home tadalafil Vit D def Continue home supplement Diet: NPO at this time until nasal bleeding controlled, can take meds/sips and chips DVT prophylaxis: Pt with copious nasal bleed, will defer at this time CODE STATUS: DNR/DNI per discussion with pt and holliece in the room Dispo: PCU/Tele Admission and Anticipated Discharge Date Admission Date: August 27, 2023 Subjective 08/28/2023 The patient was seen and examined in telemetry unit He was admitted following a fall in the parking lot with facial fractures Noted to be drowsy this morning and moderate shortness of breath, requiring 8 to 10 L of oxygen to maintain saturation Denies any chest pain or palpitation. No abdominal pain nausea and vomiting 08/29/2023 The patient was seen and examined in presence of the family members He has been lethargic and has had more lethargy at night, repeat ABG did not show any change in CO2 and he has been refusing BiPAP This morning he was noted to be lethargic as well and refusing BiPAP He strongly refused to have any intubation if he needs it and it was confirmed with the family members and himself in the room He denies any chest pain or palpitation. Has moderate shortness of breath 08/30/2023 The patient was seen and examined in telemetry unit in presence of the needs He has been worse this morning Remains pleasantly confused at times No excessive shortness of breath but he still has facial pain Is not tolerating BiPAP 08/31/2023 The patient was seen and examined in telemetry unit in presence of the family member, the niece He has been in distress and does not want to continue with the aggressive araceli tment He wants to be comfortable Discussed again with the niece and the patient and he will be made comfort care only 09/01/2023 The patient was seen and examined in medical floor He has been on comfort care Remains stable and not in Review of Systems Review of Systems: Unobtainable due to cognitive status Physical Exam Physical Exam: Lying in bed without any acute distress Constitutional: well developed, well nourished, + ill appearing and + obese Eyes: PERRL, conjunctivae normal, anicteric sclerae ENMT: external ear and nose normal, oropharynx normal Neck: trachea midline, no thyromegaly Respiratory: + respiratory distress (Minimal) Ausc ultation: + diminished lung sounds and + crackles (Minimal crackles bibasilarly) Cardiovascular: Rate/Rhythm: regular rate and regular rhythm; not tachycardic Heart Sounds: normal S1 and normal S2; no murmur Extremities: + edema (1+ bilateral leg edema) Gastrointestinal (Abdomen): Inspection/Auscultation: + abdomen distended and normal bowel sounds Percussion/Palpation: abdomen soft; abdomen nontender Neurologic: normal touch/pain/proprioception, moves all extremities, awake and + confused (Drowsy and pleasantly confused); no focal motor deficits Lymphatic: no cervical or axillary lymphadenopathy Results & Data Results & Data Vital Signs (Past 12 Hours) Vital Signs O2 Del Method 09/01/23 07:27 Room Air Medications Administered Current Inpatient Medications Amiodarone HCl (Amiodarone 200 Mg Tab) 300 mg PO QAM [facility] Stop: 09/27/23 08:59 Last Admin: 09/01/23 07:50 Dose: Not Given Hydromorphone HCl (Hydromorphone Inj 0.5 Mg/0.5 Ml Syr) 0.5 mg IV Q30M PRN PRN Reason: Pain or Respiratory Distress Stop: 09/14/23 12:17 Last Admin: 09/01/23 00:32 Dose: 0.5 mg Hydromorphone HCl (Hydromorphone Inj 0.5 Mg/0.5 Ml Syr) 1 mg IV Q30M PRN PRN Reason: dyspnea, pain Stop: 09/10/23 15:32 Last Admin: 09/01/23 14:22 Dose: 1 mg Lorazepam 0.5 mg/ Syringe 0.5 mls @ 2 mls/min IV Q4H PRN; Protocol PRN Reason: Anxiety,restless,spasm,insomni Stop: 09/30/23 12:17 Last Admin: 08/31/23 19:04 Dose: 2 mls/min Oxymetazoline HCl (Oxymetazoline 0.05% 30 Ml Btl) 2 sprays ANIA Q4H PRN PRN Reason: mild nasal oozing/bleed Stop: 09/26/23 16:56 Last Admin: 08/29/23 08:54 Dose: 2 sprays Sodium Chloride (Sodium Chloride 0.65% Na Soln 45 Ml ([place])) 2 sprays NA Q4H [facility] Stop: 09/26/23 16:59 Last Admin: 09/01/23 14:23 Dose: Not Given
[2023-09-01] MEDS ORDERED: ATROPINE SULFATE 1% OP SOLN 5 ML BTL PO PRN (18:18)
--- NOTE | 2023-09-01 19:01 | Communication Note ---
Date of Service: September 01, 2023 Asked to pronounce; On examination-totally unresponsive No pulse and or breathing No heart sound and pupils had a widely dilated and nonreactive to light He was pronounced on 09/01/2023 at 1830 hrs. The immediate cause of -acute respiratory failure Family was informed by the nurse. Dr Elmer Palacio
--- NOTE | 2023-09-03 09:37 | Discharge Summary ---
Date of Service September 03, 2023 Admission HPI Per Admitting Provider Pt is a 73yoM with PMHx significant for hyperlipidemia, prediabetes, chronic systolic heart failure, history of nonischemic cardiomyopathy, Hx of ventricular tachycardia, s/p AICD, history of IN, morbid obesity, history of bladder cancer s/p surgery, chronic kidney disease stage III, former smoker presenting after a fall in a parking lot with facial fractures. Hx obtained from pt and niece in the room. Niece states that pt was supposed to have his cardiology appointment today when he fell on his face in the parking lot. Per pt he was using his cane, and believes he mis-stepped causing his fall. He denies loss of consciousness. Per niece, pt does have some weakness and ambulatory dysfunction at baseline. He states that he fell on his face and was brought to the ED via ambulance. He notes that he has had significant bleeding and denies pain stating that his "pride is hurt more than anything". He is not on a daily blood thinner. At the time of admission, denied SOB or difficulty breathing. Denied vision loss. Denied headache. Denied chest pain. Per [facility] chart review, he was due for this cardiology follow up that he was on his way to having after having missed quite a few appointments due to being hospitalized or being canceled. Has an AICD for which there was some confusion as to whether an "Active advisory" on the AICD had been addressed. Admission Exam Per Admitting Provider Physical Exam: General: Alert, oriented. Sitting in bed with nasal compressive device, bloody Psych: Appropriate mood and affect Neuro: some hearing loss, able to move while laying in bed HEENT: facial erythema and swelling noted with lacerations and abrasions around the nose and under the eyes. Noted clotted blood CV: RRR Resp: Breath sounds clear bilaterally, no increased effort of breathing. Abdomen: Soft, tender in RUQ Extremities: edema in lower extremities bilaterally. Principal Diagnosis The patient .Causes of : Acute respiratory failure Non Ischemic Cardiomyopathy Chronic Renal failure Facial fractures following fall Discharge Exam Lying in bed without any acute distress Constitutional well developed, well nourished, + ill appearing and + obese Eyes PERRL, conjunctivae normal, anicteric sclerae ENMT external ear and nose normal, oropharynx normal Neck trachea midline, no thyromegaly Respiratory + respiratory distress (Minimal) Auscultation: + diminished lung sounds and + crackles (Minimal crackles bibasilarly) Cardiovascular Rate/Rhythm: regular rate and regular rhythm; not tachycardic Heart Sounds: normal S1 and normal S2; no murmur Extremities: + edema (1+ bilateral leg edema) Gastrointestinal (Abdomen) Inspection/Auscultation: + abdomen distended and normal bowel sounds Percussion/Palpation: abdomen soft; abdomen nontender Neurologic normal touch/pain/proprioception, moves all extremities, awake and + confused (Drowsy and pleasantly confused); no focal motor deficits Lymphatic no cervical or axillary lymphadenopathy Discharge Data Allergies Allergy/AdvReac Type Severity Reaction Status Date / Time yellow dye Allergy Unknown Hives Verified 08/27/23 11:46 Consultations 08/27/23 11:16 ED Decision to Admit Stat 08/27/23 12:51 Consult Oromaxillofacial Surgery Routine 08/27/23 15:33 Consult Cardiology Routine 08/30/23 10:21 Consult Palliative Care Routine Ordered Studies 08/27/23 09:39 CT cervical spine wo con Stat CT facial bones wo con Stat CT head/brain wo con Stat 08/27/23 14:10 US liver Routine 08/30/23 10:20 CT head/brain wo con Routine Hospital Course (1) Facial fracture: Pt is a 73yoM with PMHx significant for hyperlipidemia, prediabetes, chronic systolic heart failure, history of nonischemic cardiomyopathy, Hx of ventricular tachycardia, s/p AICD, history of IN, morbid obesity, history of bladder cancer s/p surgery, chronic kidney disease stage III, former smoker presenting after a fall in a parking lot with facial fractures. Comfort care only Condition deteriorated rapidly as mentioned below Extensive discussion with the patient and the family members prior to this stage He was put for comfort care since 08/31/2023 Remains stable without any distress We will continue with comfort care medications and management Below are the other medical conditions the patient has been managed but in the hospital: Change in mental status- Noted to be very drowsy this morning but easily waking up and conversing Has been requiring 10 L to maintain saturation ABG showed-pH of 7.31, pCO2 of 83, O2 of 108 and bicarb 42 He was placed on BiPAP CO2 remains elevated at around 80s and the pH is 7.33 and the patient does not want to be intubated in case the condition gets worse Having occasional apneic spell Discussed with the family members and the patient again and again and he clearly mention does not want to be intubated BiPAP has been applied The case was discussed with the mortgage loan originator-nothing more can be done as he is refusing intubation, will continue to use BiPAP, upright position and monitor This was again conveyed to the family members He received 2 doses of IV Narcan as he was going into apneic spells He received another dose of 80 mg of Lasix for more diuresis The condition improved and the repeat blood gas showed pH of 7.5, CO2 42.6 and pO2 187 bicarb of 34-BiPAP was taken off and he is getting oxygen through the mask He was started talking normally-family members were in the room A little worse this morning-has not been tolerating BiPAP He has been saturating normally on 4 L Repeat CAT scan of the head remained unremarkable Discussed with the niece and the patient ,will have palliative care input tomorrow Does not want to have any further aggressive treatment and wants to be in comfort care Awaiting palliative care-appreciate input and recommendation to continue with the comfort care Facial fractures following a mechanical fall in the parking lot Pt with fall in parking lot, states he believes he stumbled while using cane CT face noting fractures of the bilateral nasal bone, bilateral laminae papyracea and fracture of the R inferior orbital wall with herniation of fat Oromaxillofacial surgery consulted: -case discussed on 08/[address] Pastrana: advised to keep NPO with sips/chips for the next few hours, continue to apply nasal compression and as long as there is no further bleeding, pt may be allowed to eat as there would be no indication for surgery at that time. However, he notes that if bleeding continues as a very last resort will consider posterior nasal packing in the OR. -requesting to be contacted at [phone] should pt develop any vision issues. -recommending continued abx treatment Appreciate input and recommendation from orofacial maxillary surgeon No surgery is needed, nasal bleeding is controlled and does not require any nasal packing No treatment needed other than control bleeding with Afrin and normal saline and gentle nasal blowing Has been on Unasyn and will change to oral Augmentin to decrease the volume overload Complains of pain especially with use of BiPAP Cannot tolerate BiPAP and does not want it any longer Epistaxis Pt with significant epistaxis in setting of fractures above Received dose of tranexamic acid, nasal compression in the ED Continue to monitor and resume po intake once bleeding controlled per Dr Pastrana H/H monitoring On oxymask to help with breathing in setting of nasal compression and nasal bleeding with clots Epistaxis seems to be controlled with current measures No more epistaxis (2) Tooth abscess: (3) Fall: Tooth Abscess, periapical Face CT noting periapical tooth abscess near 2nd L mandibular incisor On Unasyn as noted above Consider dental outpt f/u Will change to oral Augmentin from today (4) Swelling of scalp: Fall Weakness Scalp swelling/contusion By pt description appears mechanical, though concern for weakness Denies LOC Head CT with no acute bleed but does note scalp swelling in midline frontal region Facial fractures noted as above Cervical spine CT with no acute fractures Pelvic XRAY with no acute fractures UA ordered and pending to rule out as a possible cause Lyme/Anaplasma with noted pancytopenia Repeat Echo pending, previous from 02/15 noted EF 40-45%, moderate aortic valve sclerosis w/o significant aortic stenosis Pt with AICD- order placed to interrogate (see below) to r/o as possible cause of fall PT/OT Repeat CT of the head did not show any significant abnormality except facial fr actures as before Cardiomegaly Nonischemic cardiomyopathy Hx of Monomorphic VT Presence of AICD HFrEF Elevated troponin hs-trop elevated at 25, increased to 49.3 EKG noting paced rhythm Repeat Echo pending, previous from 02/15 noted EF 40-45%, moderate aortic valve sclerosis w/o significant aortic stenosis, mild global hypokinesis of LV, mild- to mod mitral regurg Chest XRAY noting cardiomegaly, AICD with mild pulmonary vascular congestion Trend trop to peak Doubt ACS, likely demand Pt with AICD- order placed to interrogate as noted above Pt was supposed to have his Cardiology appt today when he fell in the parking lot. Per [facility] review and last pcp note, pt was frustrated about his previous Cardiology appts being canceled. Also letter to pt in [facility], from 08/05/2023 advising pt to come in for a Cardiology/pacer visit as there is an "active advisory" on his ICD that needs adjusted. Unsure if it had been done. Continue home amiodarone 300mg (liver enzymes currently elevated-see below, AM TSH pending), Lasix 80mg BID, metoprolol succinate 200mg qhs as soon as able to tolerate po Consider Cardiology consult while inpatient especially in setting of acute blood loss stressor Appreciate cardiology input and recommendation Status post AICD check and has been working normally Advised to continue with diuresis-will give another dose of Lasix of 40 mg IV His creatinine is minimally elevated from that of yesterday-will hold Lasix for now Monitor PRP tomorrow and restart Lasix The patient is for comfort care (5) Pancytopenia: Pancytopenia Leukopenia noted-slight, acute Anemia- chronic: follow AM iron panel, ferritin, b12, folate levels Thrombocytopenia-acute Lyme titer with IgG and IgM and negative. Anaplasma DNA test has been pending Peripheral blood smear-unremarkable for any significant disease Will monitor CBC-improving (6) Hyponatremia: (7) Elevated liver enzymes: (8) CKD (chronic kidney disease): (9) RUQ abdominal pain: Elevated Liver enzymes RUQ abdominal pain AST and ALT elevated at 141 and 108 respectively Pt on amiodarone which can cause hepatotoxicity- noted baseline on 08/19/23 of ALT of 15 and AST of 18 in [facility] Pt also with RUQ abd tenderness on exam, notes he has "gallbladder issues" Liver US-cholelithiasis without any evidence of acute cholecystitis Hold home statin at this time in the setting of elevated enzymes above Will monitor LFT Plan Hyponatremia Slight, acute Sodium of 134 Continue to monitor with AM labs Consider further workup if persistent Sodium level has been normal CKD Pt with Cr of 2.22 Known kidney disease, recent baseline appears to be ~2.2 noted in EPIC on 08/19 Given HFreF Hx and chest xray, cautious fluids as needed Pt follows with Nephrology Kidney function is worse today with BUN and creatinine went up to 68/3.53 Lasix has been on hold Will monitor PRP Prediabetes Glucose level slightly elevated at 111 AM [id number] pending HLD Holding home statin in setting of elevated liver enzymes as noted above ED Holding home tadalafil Vit D def Continue home supplement Diet: NPO at this time until nasal bleeding controlled, can take meds/sips and chips DVT prophylaxis: Pt with copious nasal bleed, will defer at this time CODE STATUS: DNR/DNI per discussion with pt and niece in the room Dispo: PCU/Tele Total Time Total Time Spent Total Time Spent (In Minutes): 20 minutes Discharge Plan Discharge Items Patient Disposition: Other Date/Time: 09/01/23 18:38
== END 2023-09-01 19:43 | disposition expired | DRG 154 ==
LOC: ED 09:29 → 2S 12:44 → SUATTDRO 12:44 → 2S 14:35 → 3E 08-31 20:35